=== PATIENT | male | born 1940 | race Caucasian/White ===

== ENCOUNTER 2016-08-15 12:19 | Inpatient (IN) | payer MEDICARE, BC ==
[2016-08-15] MEDS ORDERED: NS 0.9% 1000 ML* 1,000 ML IV ONE ×2 (13:12→14:59)
--- NOTE | 2016-08-15 13:40 | RAD ---
Indication: Chest pain, headache, shortness of breath. Fever. History of COPD. Comparison: March 14, [address] and April 24, 2015 chest radiograph. July 03, 2013 CT chest. Technique: Upright AP 1318 hours Report: Mild prominence of the interstitial markings without significant interval change. No confluent alveolar consolidation, focal pulmonary lesion, pleural effusion, pneumothorax. Cardiomegaly. Prominent central pulmonary vasculature with peripheral attenuation. IMPRESSION: Stigmata of probable chronic obstructive pulmonary disease. Cardiomegaly and stigmata of probable pulmonary arterial hypertension. No compelling evidence for pulmonary edema or pneumonia.
[2016-08-15 13:41] LABS: Hematocrit 57 % (42-52); Hemoglobin 18.2 g/dl (14.0-18.0); Mean Corpuscular HGB Conc 32 g/dl (31-36); Mean Corpuscular Hemoglobin 30 pg (27-31); Mean Corpuscular Volume 93 fL (80-94); Mean Platelet Volume 8 um3 (7.4-10.4); Red Blood Count 6.07 10^6/ul (4.0-5.4); Red Cell Distribution Width 14 % (10.5-15); White Blood Count 9.4 10^3/ul (3.5-10.8)
[2016-08-15 13:44] LABS: ALT 19 U/L (7-52); AST 22 U/L (13-39); Albumin 3.7 g/dL (3.2-5.2); Alkaline Phosphatase 95 U/L (34-104); Anion Gap 7 mmol/L (2-11); BUN/Creatinine Ratio 20.2 (8-20); Blood Urea Nitrogen 17 mg/dL (6-24); C Reactive Protein 6.25 mg/L (< 5.00); CO2 Carbon Dioxide 28 mmol/L (22-32); Calcium 8.9 mg/dL (8.6-10.3); Chloride 103 mmol/L (101-111); Creatine Kinase 37 U/L (10-223); EGFR African American 114.9 (>60); EGFR Non-African American 89.3 (>60); Globulin 2.8 g/dL (2-4); Glucose 96 mg/dL (70-100); Potassium 3.9 mmol/L (3.5-5.0); Sodium 138 mmol/L (133-145); Total Protein 6.5 g/dL (6.4-8.9)
[2016-08-15 13:46] LABS: Troponin I 0.01 ng/mL (<0.04)
[2016-08-15] MEDS ORDERED: Vancomycin(*) 1,500 MG in NS 0.9% 250 ML* 250 ML IVPB ONE (14:06)
--- NOTE | 2016-08-15 14:40 | RAD ---
INDICATION: Altered mental status. COMPARISON: Comparison is made with a prior CT of the brain from April 24, 2015. TECHNIQUE: Contiguous axial sections of the brain were obtained from the skull base to the vertex without contrast. FINDINGS: The ventricles, cisterns and sulci are enlarged consistent with diffuse atrophy. There are small areas of decreased density in the subcortical and periventricular white matter suggestive of mild chronic small vessel ischemic changes. There is relatively dense calcification within the left lentiform nucleus which appears unchanged. There is no evidence for hemorrhage. No significant focal osseous abnormality is seen. The visualized portion of the paranasal sinuses and mastoid air cells appear clear. The results of this exam were called to the referring clinician at 1425 hours. IMPRESSION: 1. NO EVIDENCE FOR GROSS ACUTE INFARCT, MASS EFFECT OR HEMORRHAGE. 2. ATROPHY AND FINDINGS SUGGESTIVE OF MILD CHRONIC SMALL VESSEL ISCHEMIC CHANGES. THERE IS ALSO DENSE CALCIFICATION WITHIN THE LEFT LENTIFORM NUCLEUS WHICH IS UNCHANGED.
[2016-08-15 15:28] LABS: Acetaminophen < 15 mcg/mL; Salicylate < 2.50 mg/dL (<30)
[2016-08-15 15:41] LABS: Urine Bacteria 1+ (Absent); Urine Bilirubin Negative (Negative); Urine Glucose Negative (Negative); Urine Nitrite Negative (Negative)
[2016-08-15 15:55] LABS: Benzodiazepine Urine Screen None Detected (None Detect)
[2016-08-15] MEDS ORDERED: Ondansetron ODT TAB* 4 MG PO PRN (15:55)
[2016-08-15] MEDS ORDERED: Metoprolol Tartrate IV* 1 MG/ML 5 ML VIAL IV SCH (16:00)
[2016-08-15] MEDS ORDERED: Naloxone* 0.4 MG/ML 1 ML VIAL IV PUSH ONE (16:15)
[2016-08-15 16:44] LABS: PCO2 Arterial 33 mmHg (35-45)
--- NOTE | 2016-08-15 18:09 | PN ---
Hospitalist Progress Note Attempted to determine reason for xarelto/metoprolol, seems as though on patient 's outpatient holter study read he was found to have "runs of atrial arrhythmias " that were felt to possibly be paroxysmal atrial flutter. He was prescribed Toprol and Xarelto the same day. Also, patient received IV Narcan in the ED with some improvement in his mental status although still fairly lethargic afterwards, I don't think narcotics are solely responsible for the AMS.
--- NOTE | 2016-08-15 18:30 | HP ---
HISTORY AND PHYSICAL: DATE OF ADMISSION: 08/15/16 PRIMARY CARE PHYSICIAN: Dr. Paz. CHIEF COMPLAINT: Seizure, altered mental status. HISTORY OF PRESENT ILLNESS: Mr. Sethi is a 76-year-old male with past medical history of CAD; left arm AVM; COPD, on occasional home oxygen; chronic pain, on high-dose narcotics; esophageal stricture requiring dilatation; CVA; OA ; GERD; depression, and INDIGO who presents to the hospital after possible seizure and altered mental status. History was obtained from the as the patient is too lethargic to participate at this time. She states that the patient had been doing fairly well lately. He had been having episodes of palpitations which prompted a stress test which he underwent yesterday. She reports it was a chemical stress test. He seemed to tolerate it well although possibly was a little fatigued afterwards. This morning, the patient seemed to be speaking less and was a little less interactive than normal. She states that she was in the other room when she started to hear the patient yell. She went in to see him and said he was tense and his whole body was shaking, what she called a "nervous twitch." He did not lose control of his bladder or bowels. She held on to him until the episode was over and then called EMS. She states since then the patient has been very lethargic and not responsive to questioning. He has no history of seizures; however, he has had a stroke in the past which at that time presented with a facial droop and slurred speech. He has had no recent sick contacts. There has been no change in his narcotics for the past 3 to 4 months. He is on these for chronic back pain and these are prescribed by Dr. Magana. The patient has not had any recent fever, chills, or chest pain. Has been having fair p.o. intake. He has been self-catheterizing as usual. He has had urinary retention since the cholecystectomy done. He has chronic nausea which has not been worse than normal. No emesis. Perhaps some worse shortness of breath lately, but not too significant. In the ED, the patient was noted to be febrile, was started on broad-spectrum antibiotics and antivirals to cover for meningitis. It was found out that he was recently started on Xarelto and metoprolol by Dr. Jacob. He seems to have Holter monitor in place but it is unclear if he is formally diagnosed with AFib. PAST MEDICAL HISTORY: 1. CAD. 2. Left arm AVM. 3. COPD, on occasional home oxygen. 4. INDIGO. 5. GERD. 6. Osteoarthritis. 7. History of CVA with no reported remaining deficits as per the . 8. Chronic pain. 9. Esophageal stricture requiring dilatation. PAST SURGICAL HISTORY: 1. Bilateral hip replacements. 2. Cholecystectomy. 3. Sinus surgery. 4. Left AVM surgery with stent placement. HOME MEDICATIONS: 1. Toprol-XL 25 mg by mouth daily. 2. Xarelto 20 mg by mouth daily. 3. Zofran 8 mg by mouth every 8 hours as needed for nausea. 4. Multivitamin 1 tablet by mouth daily. 5. Wellbutrin 150 mg by mouth daily. 6. Albuterol 2 puffs inhaled every 4 hours as needed for shortness of breath or wheezing. 7. OxyContin 15 mg by mouth every morning, 15 mg by mouth at noon, and 30 mg by mouth at bedtime. 8. MiraLAX 17 g daily. 9. Omeprazole 20 mg by mouth 2 times daily. 10. Lasix 20 to 40 mg by mouth daily. 11. Fluoxetine 20 mg by mouth daily. 12. Duloxetine 30 mg by mouth daily. 13. Bethanechol 10 mg by mouth 3 times daily, 10 mg by mouth at bedtime. 14. Bentyl 20 mg by mouth 3 times daily as needed for abdominal discomfort. 15. Advair 1 puff inhaled 2 times daily. 16. Aspirin 325 mg by mouth daily. 17. Albuterol 2.5 mg inhaled every 4 to 6 hours as needed for shortness of breath or wheezing. ALLERGIES: The patient reports no known drug allergy although has allergy to CONTRAST DYE. FAMILY HISTORY: Significant for mother with breast cancer. Father with diabetes. SOCIAL HISTORY: The patient never smoked. Rarely has alcohol. No illicit drug use. Lives at home with his . REVIEW OF SYSTEMS: A 12-point review of systems negative except for that as noted in the HPI. PHYSICAL EXAMINATION GENERAL: The patient is an elderly man, obese, lying in bed in no apparent distress although is quite lethargic. VITAL SIGNS: On admission, temperature 100.8, heart rate of 85, respiratory rate of 17, O2 saturation 99% on 4 L, blood pressure 164/79. HEENT: Pupils equal, round, reactive to light and accommodation. Anicteric sclerae. Dry mucous membranes. LUNGS: Clear to auscultation in the anterior and lateral vasquez. CARDIOVASCULAR: Irregular rhythm. S1 and S2 present. Slight systolic ejection murmur. ABDOMEN: Soft, nondistended. Some tenderness to palpation in the right lower quadrant. No rebound or guarding. Bowel sounds positive. EXTREMITIES: No cyanosis, clubbing, or edema. NEUROLOGIC: The patient is lethargic, is able to respond to voice, opens eyes, and is able to track, can follow commands. I do not appreciate any focal neurological deficits although exam is somewhat limited. He is responding verbally at this time. SKIN: Warm, dry, and well perfused. LABS AND DIAGNOSTICS: White blood cell count of 9.4, hematocrit of 57, platelets of 190. INR of 1.03. Sodium of 138, potassium 3.9, chloride of 103, carbon dioxide 28, BUN of 17, creatinine of 0.84, glucose of 96. Total bilirubin of 1.2. LFTs within normal limits. CK 37, CK-MB 2.4. Troponin 0.01. CRP of 6.25. Urinalysis: Specific gravity 1.008, 3+ blood, 1+ leukocyte esterase, 3+ wbc's, 3+ rbc's, 1+ urine bacteria. Urine tox positive for opiates, negative for everything else. EKG personally reviewed shows normal sinus rhythm with frequent PACs. Chest x-ray personally reviewed shows possible COPD with no acute disease. CT of the head shows no acute disease, atrophy, and lentiform calcification. ASSESSMENT AND PLAN: Fever, possible seizure with postictal state, subsequent lethargy, and altered mental status in a 76-year-old man with a past medical history of coronary artery disease; left arm arteriovenous malformation; chronic obstructive pulmonary disease, on O2; obstructive sleep apnea, not on CPAP; gastroesophageal reflux disease; osteoarthritis; cerebrovascular accident ; chronic pain, on high-dose narcotics. 1. Fever, lethargy, possible seizure: Appreciate Neurology consultation. Differential is broad at this time. Meningitis or encephalitis is certainly a possibility. The patient is high risk for LP while on Xarelto. So, we will hold off for now and treat empirically with vancomycin, ceftriaxone, and acyclovir. Cultures have been drawn. The patient has a UA that is not totally convincing for infection, more likely traumatic. We will order an EEG. The patient received Keppra in the emergency department. We will continue this for now. We will order an MRI with and without contrast as per Neurology. We will trial the patient on Narcan to see if some of his symptoms are secondary to overnarcosis as he has had issues with this in the past. ABG has been drawn and pending at this time. We will check an ammonia level. The patient does have a significantly elevated hemoglobin and hematocrit which he has had in the past. Polycythemia can often present with neurological symptoms. We will repeat this in the morning. If elevated, we can consider hematology consult. For now, we will keep the patient n.p.o. Try to minimize narcotics. 2. Possible seizure: Treatment as above with Keppra. We will order an EEG. 3. Arrhythmia: Repeat EKG is pending, but the patient seems to be in normal sinus rhythm with frequent premature atrial contractions. It is unclear at this time why the patient was started on metoprolol and Xarelto within the past few weeks. We will try to track down records. The patient's does not seem to think the patient has had blood clot. So, I think it is safe to hold Xarelto for now especially with consideration for possible LP still needed in the morning. 4. Depression: Continue home antidepressants. 5. History of cerebrovascular accident: Continue aspirin 325 mg by mouth daily. 6. Chronic pain: Holding the patient's home OxyContin for now. As above, we will trial the patient with some Narcan to see if this effects his mental status. If not, we will treat the patient with IV Dilaudid p.r.n. in the meantime. If he does respond to Narcan, we will try to moderate the dose. 7. Chronic obstructive pulmonary disease: The patient is currently on oxygen. No wheezing appreciated on exam. We will continue with Dulera as well as p.r.n. albuterol as needed. Wean O2 as tolerated. 8. DVT prophylaxis: Heparin subcu. 9. Code status: The patient is a full code. TIME SPENT: Total time spent on this admission, 55 minutes with over half the time spent [id number] with the patient in counseling and coordinating care. CC: Dr. Paz* [id number]/CPS #: [id number] DARREN
--- NOTE | 2016-08-15 18:30 | CONS ---
NEUROLOGICAL CONSULTATION: DATE OF CONSULT: 08/15/16 PATIENT OF: in the emergency room. HISTORY: This is a 76-year-old man who I am asked to evaluate acutely for a possible stroke. History is from the and not the patient who is not communicating. says that he was fine last night and when he woke somewhere between 8 and 8:30, he was talking to her and made sense, but was quiet and subdued and she was not sure whether he was a little confused, then in retrospect it was hard for her to tell. At 11 or 11:30, she walked into him and he was having bilateral jerking, which she thinks was going on for several minutes and it stopped. Then he remained confused with a left facial droop since. She says the facial droop is new. She says that the event looked like a seizure to her, but that he has had no prior seizures. Of note, here he has had a low-grade fever of 100.8, but he has had no cold, runny nose, GI symptoms, or any other clear source of fever and he has had no known fever at home. The said that he has had a stroke in the past, but has had no symptoms. Since then, he has no residual from the stroke. In the prior notes, I see notes from Dr. Morton in April of 2015 and early notes from Dr. Fleming where he is described as being brought to the hospital for unresponsiveness to verbal commands as well as a possible left facial droop, with a suspicion of overdose of opiates. When Dr. Fleming saw him in May of 2014, he was vague and had chronic headaches and had difficulty focusing mentally, and was not felt to have any specific neurological complaint. He has been seen previously by Dr. Resendiz, that I do not have. PAST MEDICAL HISTORY: He has had past history for esophageal problems requiring repeated dilatation, chronic nausea, chronic headaches, chronic back pain, chronic opioid analgesia, depression, osteoarthritis, asthma, cholecystectomy, chest pain, neurogenic bladder, diverticular disease, obstructive sleep apnea, cholecystectomy, history of chest pain, history of diverticular disease, obstructive sleep apnea. He has also recently been started on Xarelto according to the for unclear reasons, which we are trying to track down. MEDICATIONS AT HOME: Include: 1. Xarelto 20 mg daily, begun a few weeks ago. 2. OxyContin 15 mg in the morning, 15 mg at noon, and 30 mg at night. 3. Zofran 8 mg q. 8h. p.r.n. nausea. 4. Prilosec 20 mg b.i.d. 5. Metoprolol 25 mg daily. 6. Lasix 20 to 40 mg daily. 7. Advair one puff b.i.d. 8. Prozac 20 mg daily. 9. Bentyl 20 mg t.i.d. p.r.n. 10. Cymbalta 30 mg q.a.m. 11. Wellbutrin 150 daily. 12. Urecholine 10 t.i.d. and 10 bedtime. 13. Aspirin 325 daily. 14. 2 puffs INH q. 4h. p.r.n. ALLERGIES: He is allergic to IV CONTRAST DYE. SOCIAL HISTORY: No smoking. No alcohol. REVIEW OF SYSTEMS: Was obtained through the and there is no acute illnesses other than the HPI. PHYSICAL EXAM: On exam, temperature 100.8. He was lethargic, but would open eyes briefly. He did not say any words including when asked his name; however, he did wiggle hands, fingers, and toes on command and would squeeze on both sides. Cranial nerves II through XII are intact other than mild left facial droop which said was new, but has been reported in the past in prior history as well. Rest of the cranial nerves II through XII are intact. Sensation grossly intact to mild noxious stimulation. Bilateral reflexes were 1+, equivocal to downgoing. Chest: Clear: Cardiovascular: Regular rate and rhythm. Abdomen: Soft with positive bowel sounds. DIAGNOSTIC STUDIES/LAB DATA: A CT scan showed old calcifications unchanged from his most recent CT scan. His labs have a white count of 9.4, hematocrit of 57, neutrophils 90.5%, lymphocytes 6.6, sed rate was 21, and normal INR and PTT. Chemistries showed a normal CMP, CPK, total bili was 1.2. He had normal liver function tests. C- reactive protein was 6.25. Other studies are pending. IMPRESSION: Because of a low-grade fever, altered mental status, and probable seizure, we are loading with Javed. This would not be a good long-term medicine given his history of depression, but for now, this will acutely treat if he is having seizures. I have addressed the use of possible opioid overuse with his ER doctor and she is going to address this acutely. Given the fever and altered mental status, we are treating with IV antibiotics and acyclovir to treat for possible meningoencephalitis. This is a possibility and we have begun that acutely. Obviously if he responds to things like Narcan, the picture may become more apparent. If he indeed had seizures, then Wellbutrin can be a trigger and he will need to come off the Wellbutrin. I also discussed with the the fever could be nonspecific and it could have triggered a seizure in this patient who had a possible stroke in the past. It is unclear though exactly what his past stroke history was. It is not well documented in the notes that I have access to, but the says clearly he has had a stroke in the past. We will be getting an MRI scan with and without contrast, which will address the issue of possible meningeal inflammation and temporal lobe irritation, as well as whether this is acute stroke and we would also get an MRA of head and neck at the same time. Thank you for sharing his case. ADDENDUM TO CONSULTATION REPORT: His full vitals at the time of presentation are now available: Temperature was 100.8, pulse 85, respirations 17, blood pressure 164/79. Also, the etiology for him being on Xarelto is that he had a Holter and paroxysmal runs of what looks like atrial flutter were found and he was begun on the Xarelto at that time. I have spoken to Dr. Gibson and the patient is waking up and talking although still somewhat lethargic. He is moving all extremities. Narcan was given and he improved after that but he was improving before and it did not seem to change the trajectory. Dr. Fleming will be picking up this case at this point. [id number]/CPS #: [id number]/CPS #: [id number] DARREN
[2016-08-15] MEDS: NS 0.9% IVPB SCH (18:38)
[2016-08-15] MEDS: ACYCLOVIR IVPB SCH (18:38)
[2016-08-15] MEDS: NS 0.9% 1000 ML* 1,000 ML IV SCH (18:40)
[2016-08-15] MEDS: Metoprolol Tartrate IV* 1 MG/ML 5 ML VIAL IV SCH (18:44)
[2016-08-15] MEDS ORDERED: Gadoteridol* (CONTRAST) 279.3 MG/ML 10 ML IV SCH (19:58)
--- NOTE | 2016-08-15 20:19 | CONS ---
CONSULTATION REPORT: ADDENDUM: His full vitals at the time of presentation are now available: Temperature was 100.8, pul se 85, respirations 17, blood pressure 164/79. Also, the etiology for him being on Xarelto is that he had a Holter and paroxysmal runs of what look s like atrial flutter were found and he was begun on the Xarelto at that time. I have spoken to Dr. Gibson and the patient is waking up and talking although still somewhat lethargic. He is moving a ll extremities. Narcan was given and he improved after that but he was improving before and it did not seem to change the trajectory. Dr. Fleming will be picking up this case at this point. [id number]/[facility] #: [id number]
[2016-08-15] MEDS: HYDROmorphone* 2 MG/ML 1 ML SYR IV SLOW PU PRN (20:37)
[2016-08-15] MEDS: Mometasone/Formoter 200/5 MDI INH SCH (20:44)
--- NOTE | 2016-08-15 22:00 | RAD ---
Indication: Evaluate for stroke or temporal enhancement, history of seizures. Image sequences: Sagittal and axial T1, axial T2, FLAIR, diffusion and susceptibility weighted images of the brain were obtained. Coronal T1, T2 and FLAIR images were obtained. Approximately 20 mL of ProHance was injected and postcontrast sagittal, coronal and axial images were obtained. Ventricular structures are midline. No midline shift is noted. Central and cortical atrophy is noted. FLAIR images demonstrates periventricular signal abnormality consistent with microvascular change. No intracranial mass or hemorrhage is noted. No other high or low signal lesions are identified. There is a appropriate atrophy and the temporal lobes with no evidence of mass or abnormal enhancement. Mastoid air cells and paranasal sinuses are unremarkable. Diffusion-weighted images demonstrates no restriction of diffusion to suggest an acute infarct. Susceptibility weighted images demonstrates no evidence of hemosiderin. 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 CHRONIC ISCHEMIC WHITE MATTER CHANGE IS NOTED. NO ABNORMAL HIPPOCAMPAL ABNORMALITY IS NOTED. NO EVIDENCE OF ACUTE STROKE IS IDENTIFIED.
[2016-08-15] MEDS: Heparin VIAL(*) 5000 UNITS/ML VIAL (FIVE THOUSAND) SUBCUT SCH (22:13)
[2016-08-16] MEDS: Metoprolol Tartrate IV* 1 MG/ML 5 ML VIAL IV SCH ×3 (00:19→11:58)
[2016-08-16] MEDS: Vancomycin(*) 1,000 MG in NS 0.9% 250 ML* 250 ML IVPB SCH ×4 (00:19→23:28)
[2016-08-16] MEDS: Phenazopyridine TAB* 100 MG PO SCH ×3 (01:41→18:09)
[2016-08-16] MEDS: HYDROmorphone* 2 MG/ML 1 ML SYR IV SLOW PU PRN ×3 (01:41→19:54)
[2016-08-16] MEDS: NS 0.9% IVPB SCH ×3 (02:21→18:08)
[2016-08-16] MEDS: ACYCLOVIR IVPB SCH ×3 (02:21→18:08)
[2016-08-16] MEDS ORDERED: Sodium Phosphate ADULT ENEMA* 118 ml bottle PR ONE (02:48)
[2016-08-16 04:51] LABS: Hematocrit 48 % (42-52); Hemoglobin 15.4 g/dl (14.0-18.0); Mean Corpuscular HGB Conc 32 g/dl (31-36); Mean Corpuscular Hemoglobin 30 pg (27-31); Mean Corpuscular Volume 93 fL (80-94); Mean Platelet Volume 8 um3 (7.4-10.4); Red Blood Count 5.14 10^6/ul (4.0-5.4); Red Cell Distribution Width 14 % (10.5-15); White Blood Count 38.3 10^3/ul (3.5-10.8)
[2016-08-16] MEDS: Acetaminophen TAB* 325 MG PO PRN ×2 (04:52→15:40)
[2016-08-16 04:56] LABS: Add Diff/Slide Review? Slide Review Added; Comments Flag Yes
[2016-08-16 05:01] LABS: BUN/Creatinine Ratio 20.6 (8-20); Calcium 7.4 mg/dL (8.6-10.3); EGFR African American 91.8 (>60); EGFR Non-African American 71.4 (>60); Globulin 2.7 g/dL (2-4); Total Bilirubin 0.7 mg/dL (0.2-1.0); Total Protein 5.7 g/dL (6.4-8.9)
[2016-08-16 05:08] LABS: Potassium 4.3 mmol/L (3.5-5.0)
[2016-08-16 05:26] LABS: Immature Granulocytes 16 % (0-9); Neutrophil % 78 % (38-83); RBC Morphology Normal (Normal)
[2016-08-16] MEDS: Heparin VIAL(*) 5000 UNITS/ML VIAL (FIVE THOUSAND) SUBCUT SCH ×3 (05:40→21:42)
[2016-08-16] MEDS: Omeprazole CAP* 20 MG PO SCH ×2 (07:33→21:41)
[2016-08-16] MEDS: Aspirin TAB* 325 MG PO SCH (07:33)
[2016-08-16] MEDS: DULoxetine DR CAP* 30 MG CAP.DR PO SCH (07:33)
[2016-08-16] MEDS: BuPROPion XL* 150 MG TAB.XL PO SCH (07:33)
[2016-08-16] MEDS: FLUoxetine CAP* 20 MG PO SCH (07:33)
[2016-08-16] MEDS: Mometasone/Formoter 200/5 MDI INH SCH ×2 (08:42→20:30)
[2016-08-16] MEDS ORDERED: levETIRAcetam 500 MG IVPREMIX* 500 MG/100 ML BAG IV SCH (09:00)
--- NOTE | 2016-08-16 13:10 | PN ---
Subjective Date of Service: 08/16/16 Interval History: "I'm having withdrawal symptoms. states he goes to the pain clinic in [place] and has been on the med rec dose of oxycodone SR for a long time. " Objective Active Medications: Acetaminophen (Tylenol Tab*) 650 mg PO Q6H PRN PRN Reason: PAIN/FEVER Last Admin: 08/16/16 04:52 Dose: 650 mg Albuterol (Ventolin 2.5 Mg/3 Ml Neb.Damaris*) 2.5 mg INH Q4H PRN PRN Reason: SHORTNESS OF BREATH Aspirin (Aspirin Tab*) 325 mg PO DAILY [facility] Last Admin: 08/16/16 07:33 Dose: 325 mg Bupropion HCl (Wellbutrin Xl *) 150 mg PO DAILY [facility] PRN Reason: Protocol Last Admin: 08/16/16 07:33 Dose: 150 mg Duloxetine HCl (Cymbalta Cap*) 30 mg PO QAM [facility] Last Admin: 08/16/16 07:33 Dose: 30 mg Fluoxetine HCl (Prozac Cap*) 20 mg PO DAILY [facility] Last Admin: 08/16/16 07:33 Dose: 20 mg Gadoteridol (Prohance* (Contrast)) 20 ml IV ONCE [facility] Stop: 08/17/16 19:57 Last Admin: 08/15/16 21:32 Dose: 20 ml Heparin Sodium (Porcine) (Heparin Vial(*)) 5,000 units SUBCUT Q8HR [facility] Last Admin: 08/16/16 05:40 Dose: 5,000 units Hydromorphone HCl (Dilaudid Iv*) 2 mg IV SLOW PU Q4H PRN PRN Reason: PAIN Last Admin: 08/16/16 01:41 Dose: 2 mg Acyclovir Sodium 900 mg/ (Sodium Chloride) 268 mls @ 268 mls/hr IVPB Q8H [facility] Last Admin: 08/16/16 09:58 Dose: 268 mls/hr Ceftriaxone Sodium 2 gm/ (Sodium Chloride) 120 mls @ 240 mls/hr IVPB Q12H [facility] Last Admin: 08/16/16 03:57 Dose: 240 mls/hr Vancomycin HCl 1,000 mg/ (Sodium Chloride) 250 mls @ 166.667 mls/hr IVPB Q8H [facility] Last Admin: 08/16/16 07:32 Dose: 166.667 mls/hr Sodium Chloride (Ns 0.9% 1000 Ml*) 1,000 mls @ 75 mls/hr IV PER RATE [facility] Last Admin: 08/15/16 18:40 Dose: 75 mls/hr Levetiracetam (Keppra Iv Premix*) 500 mg in 100 mls @ 400 mls/hr IV DAILY [facility] Last Admin: 08/16/16 09:32 Dose: 400 mls/hr Levetiracetam 1,000 mg/ Sodium (Chloride) 110 mls @ 440 mls/hr IVPB 2100 [facility] Mometasone Furoate/Formoterol Fumar (Dulera 200/5 Mdi*) 2 puff INH BID [facility] Last Admin: 08/16/16 08:42 Dose: 2 puff Omeprazole (Prilosec Cap*) 20 mg PO BID [facility] Last Admin: 08/16/16 07:33 Dose: 20 mg Ondansetron HCl (Zofran Odt Tab*) 8 mg PO Q8H PRN PRN Reason: NAUSEA/VOMITING Oxycodone HCl (Oxycontin(*)) 20 mg PO TID [facility] Pharmacy Profile Note (Vancomycin Trough Check) 1 note FOLLOW UP ONCE ONE Stop: 08/17/16 07:31 Phenazopyridine HCl (Pyridium Tab*) 100 mg PO Q8H [facility] Stop: 08/18/16 09:01 Last Admin: 08/16/16 07:33 Dose: 100 mg Vital Signs 08/15/16 08/15/16 08/15/16 16:30 17:00 17:30 Temperature Pulse Rate 74 80 82 Respiratory 30 26 26 Rate Blood Pressure 125/56 117/63 123/75 (mmHg) O2 Sat by Pulse 98 97 97 Oximetry 08/15/16 08/15/16 08/15/16 18:00 18:20 20:00 Temperature 99.1 F Pulse Rate 83 90 Respiratory 31 22 20 Rate Blood Pressure 124/43 137/65 (mmHg) O2 Sat by Pulse 93 97 Oximetry 08/15/16 08/15/16 08/15/16 20:04 20:37 21:37 Temperature 99.1 F Pulse Rate 90 Respiratory 18 16 22 Rate Blood Pressure 123/56 (mmHg) O2 Sat by Pulse 96 Oximetry 08/16/16 08/16/16 08/16/16 00:11 01:00 01:41 Temperature 97.7 F Pulse Rate 66 Respiratory 20 22 18 Rate Blood Pressure 110/81 (mmHg) O2 Sat by Pulse 97 Oximetry 08/16/16 08/16/16 08/16/16 02:41 04:02 07:30 Temperature 99.3 F 98.1 F Pulse Rate 71 60 Respiratory 22 20 18 Rate Blood Pressure 120/58 92/47 (mmHg) O2 Sat by Pulse 92 97 Oximetry 08/16/16 08/16/16 08/16/16 07:55 08:42 11:23 Temperature 98.0 F Pulse Rate 63 71 Respiratory 17 18 18 Rate Blood Pressure 88/46 (mmHg) O2 Sat by Pulse 96 95 Oximetry 08/16/16 11:26 Temperature Pulse Rate Respiratory Rate Blood Pressure 110/38 (mmHg) O2 Sat by Pulse Oximetry Oxygen Devices in Use Now: Nasal Cannula Appearance: Alert, sitting on the edge of his bed, head bent over. Somewhat irritable, but otherwise looks comfortable. Eyes: No Scleral Icterus Ears/Nose/Mouth/Throat: Clear Oropharnyx, Mucous Membranes Moist Neck: NL Appearance and Movements; NL JVP, No Thyroid Enlargement, Masses Respiratory: Symmetrical Chest Expansion and Respiratory Effort, Clear to Auscultation, Clear to Percussion Extremities: No Clubbing, Cyanosis, - - Tr edema BL Skin: No Rash or Ulcers, No Nodules or Sclerosis, - Neurological: Alert and Oriented x 3, NL Sensation Result Diagrams: 08/16/16 04:35 08/16/16 04:35 Additional Lab and Data: Lab Results 08/15/16 08/15/16 08/15/16 Range/Units 13:00 13:00 13:00 WBC 9.4 (3.5-10.8) 10^3/ul RBC 6.07 H (4.0-5.4) 10^6/ul Hgb 18.2 H (14.0-18.0) g/dl Hct 57 H (42-52) % MCV 93 (80-94) fL MCH 30 (27-31) pg MCHC 32 (31-36) g/dl RDW 14 (10.5-15) % Plt Count 190 (150-450) 10^3/ul MPV 8 (7.4-10.4) um3 Neut % (Auto) 90.5 H (38-83) % Lymph % (Auto) 6.6 L (25-47) % [place] % (Auto) 1.0 (1-9) % Eos % (Auto) 1.7 (0-6) % Baso % (Auto) 0.2 (0-2) % Absolute Neuts (auto) 8.5 H (1.5-7.7) 10^3/ul Absolute Lymphs (auto) 0.6 L (1.0-4.8) 10^3/ul Absolute Monos (auto) 0.1 (0-0.8) 10^3/ul Absolute Eos (auto) 0.2 (0-0.6) 10^3/ul Absolute Basos (auto) 0 (0-0.2) 10^3/ul Absolute Nucleated RBC 0 10^3/ul Nucleated RBC % 0.1 INR (Anticoag Therapy) 1.03 (0.89-1.11) APTT 28.1 (26.0-36.3) seconds Sodium 138 (133-145) mmol/L Potassium 3.9 (3.5-5.0) mmol/L Chloride 103 (101-111) mmol/L Carbon Dioxide 28 (22-32) mmol/L Anion Gap 7 (2-11) mmol/L BUN 17 (6-24) mg/dL Creatinine 0.84 (0.67-1.17) mg/dL Est GFR ( Amer) 114.9 (>60) Est GFR (Non-Af Amer) 89.3 (>60) BUN/Creatinine Ratio 20.2 H (8-20) Glucose 96 (70-100) mg/dL Lactic Acid (0.5-2.0) mmol/L Calcium 8.9 (8.6-10.3) mg/dL Total Bilirubin 1.20 H (0.2-1.0) mg/dL AST 22 (13-39) U/L ALT 19 (7-52) U/L Alkaline Phosphatase 95 (34-104) U/L Total Creatine Kinase 37 (10-223) U/L CK-MB (CK-2) 2.4 (0.6-6.3) ng/mL Troponin I 0.01 (<0.04) ng/mL C-Reactive Protein 6.25 H (< 5.00) mg/L Total Protein 6.5 (6.4-8.9) g/dL Albumin 3.7 (3.2-5.2) g/dL Globulin 2.8 (2-4) g/dL Albumin/Globulin Ratio 1.3 (1-3) 05/16/17 Range/Units 13:00 WBC (3.5-10.8) 10^3/ul RBC (4.0-5.4) 10^6/ul Hgb (14.0-18.0) g/dl Hct (42-52) % MCV (80-94) fL MCH (27-31) pg MCHC (31-36) g/dl RDW (10.5-15) % Plt Count (150-450) 10^3/ul MPV (7.4-10.4) um3 Neut % (Auto) (38-83) % Lymph % (Auto) (25-47) % [place] % (Auto) (1-9) % Eos % (Auto) (0-6) % Baso % (Auto) (0-2) % Absolute Neuts (auto) (1.5-7.7) 10^3/ul Absolute Lymphs (auto) (1.0-4.8) 10^3/ul Absolute Monos (auto) (0-0.8) 10^3/ul Absolute Eos (auto) (0-0.6) 10^3/ul Absolute Basos (auto) (0-0.2) 10^3/ul Absolute Nucleated RBC 10^3/ul Nucleated RBC % INR (Anticoag Therapy) (0.89-1.11) APTT (26.0-36.3) seconds Sodium (133-145) mmol/L Potassium (3.5-5.0) mmol/L Chloride (101-111) mmol/L Carbon Dioxide (22-32) mmol/L Anion Gap (2-11) mmol/L BUN (6-24) mg/dL Creatinine (0.67-1.17) mg/dL Est GFR ( Amer) (>60) Est GFR (Non-Af Amer) (>60) BUN/Creatinine Ratio (8-20) Glucose (70-100) mg/dL Lactic Acid 1.7 (0.5-2.0) mmol/L Calcium (8.6-10.3) mg/dL Total Bilirubin (0.2-1.0) mg/dL AST (13-39) U/L ALT (7-52) U/L Alkaline Phosphatase (34-104) U/L Total Creatine Kinase (10-223) U/L CK-MB (CK-2) (0.6-6.3) ng/mL Troponin I (<0.04) ng/mL C-Reactive Protein (< 5.00) mg/L Total Protein (6.4-8.9) g/dL Albumin (3.2-5.2) g/dL Globulin (2-4) g/dL Albumin/Globulin Ratio (1-3) Assess/Plan/Problems-Billing Assessment: - Patient Problems (1) Seizure Current Visit: Yes Status: Acute Code(s): R56.9 - UNSPECIFIED CONVULSIONS SNOMED Code(s): 57781837 Comment: Continue levetiracetam for now. Dr. Fleming to see. (2) Fever Current Visit: Yes Status: Acute Code(s): R50.9 - FEVER, UNSPECIFIED SNOMED Code(s): 646312500 Comment: Continue ceftriaxone and acyclovir. ? LP tomorrow. Procalcitonin add-on. (3) Obstructive sleep apnea on CPAP Current Visit: No Status: Chronic Code(s): G47.33 - OBSTRUCTIVE SLEEP APNEA (ADULT) (PEDIATRIC) SNOMED Code(s): 49482730 Comment: Continue albuterol neb PRN. Patient has O2 at home, not CPAP. He had CPAP many years ago. (4) Chronic back pain Current Visit: No Status: Chronic Code(s): M54.9 - DORSALGIA, UNSPECIFIED; G89.29 - OTHER CHRONIC PAIN SNOMED Code(s): 258698854 Comment: Oxycodone SR 15 mg not available in the hospital. I ordered 20 mg tid instead--same total daily doase as at home. (5) Depression, endogenous Current Visit: No Status: Chronic Code(s): F33.2 - MAJOR DEPRESSV DISORDER, RECURRENT SEVERE W/O PSYCH FEATURES SNOMED Code(s): 881709300 Comment: Continue fluoxetine, duloxetine, buproprion.
[2016-08-16] MEDS: oxyCODONE SR TAB(*) 20 MG TAB.SR PO SCH ×2 (13:20→21:41)
[2016-08-16 13:30] LABS: Hematocrit 45 % (42-52); Hemoglobin 14.3 g/dl (14.0-18.0); Mean Corpuscular HGB Conc 32 g/dl (31-36); Mean Corpuscular Hemoglobin 30 pg (27-31); Mean Corpuscular Volume 93 fL (80-94); Mean Platelet Volume 8 um3 (7.4-10.4); Red Blood Count 4.81 10^6/ul (4.0-5.4); Red Cell Distribution Width 15 % (10.5-15); White Blood Count 24.6 10^3/ul (3.5-10.8)
[2016-08-16 13:39] LABS: Comments Flag Yes
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
[2016-08-16] MEDS ORDERED: Sodium Phosphate ADULT ENEMA* 118 ml bottle PR PRN (17:58)
--- NOTE | 2016-08-16 18:00 | PN ---
Progress Note - Progress Note Note: Pt does self-cath, reports kesha blood the last few times. US bladder ordered. He also request 2 Fleet's enama per day, self-administers.
--- NOTE | 2016-08-16 20:55 | RAD ---
Indication: Hematuria. Real-time sonography of the urinary bladder was performed. The catheter is in place. Bladder wall measures 2.1 mm. Swelling debris is noted. Bilateral ureteral jets are noted. The prostate measures 48 mL. IMPRESSION: Catheter in place. Diffuse wall thickening of the urinary bladder measuring up to 2.1 mm.
[2016-08-16] MEDS ORDERED: OXYCODONE 15 MG PO SCH (21:00)
--- NOTE | 2016-08-16 21:53 | CONS ---
NEUROLOGY FOLLOWUP CONSULTATION: DATE OF CONSULT/FOLLOWUP: 08/16/16 HOSPITALIST: Dr. Grove. LOCATION: He is an inpatient, room 436. CHIEF COMPLAINT: Possible seizure. INTERVAL HISTORY: Since yesterday, Mr. Sethi does not feel well in general , but has not had anymore episodes of generalized shaking or weakness. He has a lot of back pain and flank pain and also a bad headache. He has chronic back pain and also a longstanding history of headaches. I reviewed the history with him and his . He says he recalls that he was straight cathing himself yesterday which he has been doing for decades. He developed severe hematuria which he says he has had to a minor extent, but not so severe as yesterday. He started to get very faint and felt like he was going to pass out. He remembers yelling to his . She came in and she says he was still talking and so that he had been calling her. His arms were flowing in front of him "like a seizure. " She feels he never lost responsiveness entirely. An ambulance was summoned and he was brought into the emergency room. She felt that perhaps he had some left facial weakness. She says he also had that when he had his "stroke" several years ago when he came in with a bad headache. She said that resolved and was not a persistent problem. Reviewing the records, Dr. Montoya felt he had a mild left facial droop when he examined him yesterday. Since yesterday, his fever came down. His said it is very unusual for him to have a fever. His white blood cell count climbed precipitously. It was up to 38.3 earlier this morning and then on repeat at 1300 hours, it was 24.6. He developed a bandemia and a left shift. Also, his platelet count has dropped slightly to 130,000. Urinalysis from yesterday was notable for 3+ blood, 3+ white blood cells, 3+ red blood cells, positive leukocyte esterase. Urine culture from yesterday is negative apparently in less than 24 hours. MEDICATIONS: Reviewed. He remains on: 1. Ceftriaxone 2 g q.12 hours. 2. Acyclovir IV q.8 hours 900 mg. 3. Fluoxetine 20 mg p.o. daily. 4. Duloxetine 30 mg p.o. q.a.m. 5. Bupropion XL 150 mg p.o. daily. 6. Dilaudid 2 mg IV q.4 hours p.r.n. back pain. 7. Keppra 500 mg IV q.12 hours. 8. Oxycodone 20 mg p.o. t.i.d. 9. Vancomycin 1000 mg IV q.8 hours. PHYSICAL EXAMINATION: He is overweight and well hydrated. Temperature 98.4, blood pressure 122/52, heart rate in the 60s. Neurologically, pupils are equal, reacting from 3 to 2 mm and eye movements are full. Facial musculature looks symmetric to me. Speech is clear. Funduscopic exam is unremarkable. Motor exam in the upper extremities is normal. I did not walk him. He is alert and oriented to person, place, and time. He is able to give a really pretty good detailed history of yesterday. DIAGNOSTIC STUDIES/LAB DATA: His EEG was done earlier today and reviewed. It reveals mild disorganization of background rhythms, but no epileptiform features. He had an MRI of the brain earlier today which revealed nonspecific white matter changes, but no evidence of prior stroke, hemorrhages, or acute abnormalities. IMPRESSION: Mr. Sethi had convulsive syncope in the setting of gross hematuria. He has what sounds like chronic low-grade hematuria and was recently started on anticoagulation. He may have had some recurrent left facial weakness from otherwise, clinically silent cerebrovascular disease which was brought out by an episode of hypotension. I do not see any evidence of an acute stroke and I think it very unlikely that this was an epileptic event. Recommend discontinuing his Keppra. The plan is to do a lumbar puncture tomorrow off Xarelto which I think is reasonable to consider. Otherwise, it will be hard to determine whether or not and when to stop his acyclovir. His urine culture is negative, but he clearly has significant hematuria and is prone to recurrent urinary tract infections. I will continue to follow along with you. [id number]/[facility] #: [id number] DARREN
[2016-08-16] MEDS: NS 0.9% 1000 ML* 1,000 ML IV SCH (23:32)
[2016-08-17] MEDS: HYDROmorphone* 2 MG/ML 1 ML SYR IV SLOW PU PRN ×5 (00:09→21:21)
--- NOTE | 2016-08-17 01:31 | EEG ---
ELECTROENCEPHALOGRAPHY: DATE OF STUDY: 08/16/16 - ROOM #[id number] REFERRING PHYSICIAN: Dr. Valente Gibson. LOCATION: He is an inpatient. CLINICAL HISTORY: Episode of possible seizure at home. There is a history of a remote stroke. The patient is on numerous medications and Keppra was started in the emergency room. MEDICATIONS: Other medications include: 1. Dilaudid. 2. Prozac. 3. Cymbalta. 4. Wellbutrin. REPORT: This 16-channel EEG is remarkable for background rhythms consisting of a posterior close to alpha rhythm of about 7 cycles and sometimes 8 cycles per second, which is of higher amplitude and slightly slower frequency in the left posterior hemisphere. Moderate voltage mixed theta and beta activity are seen bifrontally and bitemporally. Some vertex slowing is seen periodically including with the patient awake and talking. Movement artifact slowing when the patient is having some coughing is noted episodically. The patient drowses with the increase in amount of central slowing and bitemporal slowing, which is a little more prominent from the left hemisphere. Occasional poorly formed sharp waves are seen mainly centrally. Occasionally there may be a left paracentral sharp wave, but there are no well-formed epileptiform discharges. There are no clinical events. Activation procedures are not attempted. The patient does not clearly fall to stage 2 sleep. CLINICAL IMPRESSION: Abnormal EEG due to mild slowing and disorganization of background rhythm. This is with slower activity from the left hemisphere suggesting some left hemisphere dysfunction. There are, however, no epileptiform discharges. [id number]/[facility] #: [id number] MTDD
[2016-08-17] MEDS: ACYCLOVIR IVPB SCH ×3 (01:47→17:44)
[2016-08-17] MEDS: NS 0.9% IVPB SCH ×3 (01:47→17:44)
[2016-08-17] MEDS: Phenazopyridine TAB* 100 MG PO SCH ×3 (01:57→17:47)
[2016-08-17] MEDS: Metoprolol Succinate XL TAB* 25 MG PO SCH ×2 (02:52→09:27)
[2016-08-17] MEDS: Heparin VIAL(*) 5000 UNITS/ML VIAL (FIVE THOUSAND) SUBCUT SCH ×3 (05:19→22:46)
[2016-08-17] MEDS ORDERED: Vancomycin Trough Check NOTE FOLLOW UP ONE (07:30)
[2016-08-17] MEDS: Mometasone/Formoter 200/5 MDI INH SCH ×2 (07:32→21:05)
[2016-08-17] MEDS: Vancomycin(*) 1,000 MG in NS 0.9% 250 ML* 250 ML IVPB SCH ×2 (07:40→15:55)
[2016-08-17] MEDS ORDERED: OXYCODONE 15 MG PO SCH ×2 (09:00→12:00)
[2016-08-17] MEDS: Omeprazole CAP* 20 MG PO SCH ×2 (09:25→19:52)
[2016-08-17] MEDS: DULoxetine DR CAP* 30 MG CAP.DR PO SCH (09:25)
[2016-08-17] MEDS: oxyCODONE SR TAB(*) 20 MG TAB.SR PO SCH ×3 (09:25→20:01)
[2016-08-17] MEDS: Aspirin TAB* 325 MG PO SCH (09:25)
[2016-08-17] MEDS: FLUoxetine CAP* 20 MG PO SCH (09:28)
[2016-08-17] MEDS: BuPROPion XL* 150 MG TAB.XL PO SCH (10:35)
[2016-08-18] MEDS: Vancomycin(*) 1,000 MG in NS 0.9% 250 ML* 250 ML IVPB SCH ×2 (01:31→07:50)
[2016-08-18] MEDS: Phenazopyridine TAB* 100 MG PO SCH ×2 (01:31→08:39)
[2016-08-18] MEDS: NS 0.9% IVPB SCH ×2 (01:32→09:50)
[2016-08-18] MEDS: ACYCLOVIR IVPB SCH ×2 (01:32→09:50)
[2016-08-18] MEDS: Heparin VIAL(*) 5000 UNITS/ML VIAL (FIVE THOUSAND) SUBCUT SCH ×3 (05:51→20:59)
[2016-08-18 06:29] LABS: Hematocrit 43 % (42-52); Mean Corpuscular HGB Conc 33 g/dl (31-36); Mean Corpuscular Hemoglobin 30 pg (27-31); Mean Corpuscular Volume 93 fL (80-94); Mean Platelet Volume 8 um3 (7.4-10.4); Red Blood Count 4.63 10^6/ul (4.0-5.4); Red Cell Distribution Width 14 % (10.5-15); White Blood Count 9.2 10^3/ul (3.5-10.8)
[2016-08-18 06:42] LABS: BUN/Creatinine Ratio 18.3 (8-20); Calcium 7.4 mg/dL (8.6-10.3); EGFR African American 169.4 (>60); EGFR Non-African American 131.7 (>60); Potassium 3.8 mmol/L (3.5-5.0)
[2016-08-18] MEDS: Mometasone/Formoter 200/5 MDI INH SCH ×2 (07:39→20:49)
[2016-08-18] MEDS: DULoxetine DR CAP* 30 MG CAP.DR PO SCH (08:39)
[2016-08-18] MEDS: Omeprazole CAP* 20 MG PO SCH ×2 (08:39→20:59)
[2016-08-18] MEDS: Aspirin TAB* 325 MG PO SCH (08:39)
[2016-08-18] MEDS: BuPROPion XL* 150 MG TAB.XL PO SCH (08:40)
[2016-08-18] MEDS: oxyCODONE SR TAB(*) 20 MG TAB.SR PO SCH ×3 (08:40→20:59)
[2016-08-18] MEDS: Metoprolol Succinate XL TAB* 25 MG PO SCH (08:40)
[2016-08-18] MEDS: FLUoxetine CAP* 20 MG PO SCH (08:40)
[2016-08-18] MEDS: HYDROmorphone* 2 MG/ML 1 ML SYR IV SLOW PU PRN ×3 (11:00→19:33)
[2016-08-18] MEDS: NS 0.9% 1000 ML* 1,000 ML IV SCH (13:24)
--- NOTE | 2016-08-18 17:48 | PN ---
Subjective Date of Service: 08/17/16 Interval History: . Interviewed and examined patient at bedside; Discussed case with Dr. Grove ; Reviewed previous notes and radiology results; Patient feels better than previous but still not normal. no fevers / chills. described a lot of urinary pain and symptomology. Family History: Unchanged from Admission Social History: Unchanged from Admission Past Medical History: Unchanged from Admission Objective Active Medications: . Acetaminophen (Tylenol Tab*) 650 mg PO Q6H PRN PRN Reason: PAIN/FEVER Last Admin: 08/16/16 15:40 Dose: 650 mg Albuterol (Ventolin 2.5 Mg/3 Ml Neb.Damaris*) 2.5 mg INH Q4H PRN PRN Reason: SHORTNESS OF BREATH Aspirin (Aspirin Tab*) 325 mg PO DAILY [facility] Last Admin: 08/18/16 08:39 Dose: 325 mg Bupropion HCl (Wellbutrin Xl *) 150 mg PO DAILY [facility] PRN Reason: Protocol Last Admin: 08/18/16 08:40 Dose: 150 mg Duloxetine HCl (Cymbalta Cap*) 30 mg PO QAM [facility] Last Admin: 08/18/16 08:39 Dose: 30 mg Fluoxetine HCl (Prozac Cap*) 20 mg PO DAILY [facility] Last Admin: 08/18/16 08:40 Dose: 20 mg Heparin Sodium (Porcine) (Heparin Vial(*)) 5,000 units SUBCUT Q8HR [facility] Last Admin: 08/18/16 13:24 Dose: 5,000 units Hydromorphone HCl (Dilaudid Iv*) 2 mg IV SLOW PU Q4H PRN PRN Reason: PAIN Last Admin: 08/18/16 15:18 Dose: 2 mg Metoprolol Succinate (Toprol Xl Tab*) 25 mg PO DAILY [facility] Last Admin: 08/18/16 08:40 Dose: 25 mg Mometasone Furoate/Formoterol Fumar (Dulera 200/5 Mdi*) 2 puff INH BID [facility] Last Admin: 08/18/16 07:39 Dose: 2 puff Omeprazole (Prilosec Cap*) 20 mg PO BID [facility] Last Admin: 08/18/16 08:39 Dose: 20 mg Ondansetron HCl (Zofran Odt Tab*) 8 mg PO Q8H PRN PRN Reason: NAUSEA/VOMITING Oxycodone HCl (Oxycontin(*)) 20 mg PO TID [facility] Last Admin: 08/18/16 13:25 Dose: 20 mg Sodium Biphosphate/Sodium Phosphate (Fleet Enema*) 1 bottle MS DAILY PRN PRN Reason: CONSTIPATION Last Admin: 08/17/16 06:26 Dose: 1 bottle . Vital Signs 08/17/16 08/17/16 08/17/16 19:31 20:00 20:01 Temperature 97.6 F Pulse Rate 95 Respiratory 20 17 17 Rate Blood Pressure 120/52 (mmHg) O2 Sat by Pulse 98 Oximetry 08/17/16 08/17/16 08/17/16 21:21 22:01 22:21 Temperature Pulse Rate Respiratory 18 16 16 Rate Blood Pressure (mmHg) O2 Sat by Pulse Oximetry Oxygen Devices in Use Now: Nasal Cannula Appearance: elderly, dishevelled Eyes: No Scleral Icterus Ears/Nose/Mouth/Throat: Clear Oropharnyx Neck: Trachea Midline Respiratory: Clear to Auscultation Cardiovascular: NL Sounds; No Murmurs; No JVD Abdominal: NL Sounds; No Tenderness; No Distention Lymphatic: No Cervical Adenopathy Extremities: No Edema Skin: No Rash or Ulcers Neurological: Alert and Oriented x 3 Lines/Tubes/Other Access: Clean, Dry and Intact Peripheral IV Nutrition: Taking PO's Result Diagrams: 08/18/16 06:04 08/18/16 06:04 Assess/Plan/Problems-Billing . Assessment: 76 yo man with hematuria in the setting of ongoing straight-catheterization in the setting of recently starting xarelto and metoprolol for atrial arrythmia. Presents with convulsive syncope - but also concern for potentially infection, given elevated WBC and low grade fever. + recent outpatient antibiotics for UTI's. Current Medications: - Acetaminophen (Tylenol Tab) 650 mg PO Q6H PRN PAIN/FEVER - Albuterol (Ventolin 2.5 Mg/3 Ml Neb.Damaris) 2.5 mg INH Q4H PRN SHORTNESS OF BREATH - Aspirin (Aspirin Tab*) 325 mg PO DAILY - Bupropion HCl (Wellbutrin Xl) 150 mg PO DAILY - Duloxetine HCl (Cymbalta Cap) 30 mg PO QAM - Fluoxetine HCl (Prozac Cap) 20 mg PO DAILY - Heparin Sodium (Porcine) (Heparin Vial) 5,000 units SUBCUT Q8HR - Hydromorphone HCl (Dilaudid Iv) 2 mg IV SLOW PU Q4H PRN PAIN - Metoprolol Succinate (Toprol Xl Tab) 25 mg PO DAILY - Mometasone Furoate/Formoterol Fumar (Dulera 200/5 Mdi) 2 puff INH BID - Omeprazole (Prilosec Cap) 20 mg PO BID - Ondansetron HCl (Zofran Odt Tab) 8 mg PO Q8H PRN NAUSEA/VOMITING - Oxycodone HCl (Oxycontin) 20 mg PO TID - Sodium Biphosphate/Sodium Phosphate (Fleet Enema) 1 bottle MS DAILY PRN CONSTIPATION - Patient Problems (1) Hematuria Current Visit: Yes Status: Acute Priority: High Code(s): R31.9 - HEMATURIA , UNSPECIFIED Comment: - resolving now, off xarelto and with careful catheterizations. - I think the hematuria was secondary to inadvertent trauma in the setting of xarelto, which is known to cause hematuria itself. - also could have been contribution of recent UTI with mucosal irritation. - I think the elevated WBC was moreso secondary to a stress response associated with urinary pain and convulsive syncope. - hold xarelto and consider alternative NOAC (eliquis?) (2) Leukocytosis Current Visit: Yes Status: Chronic Priority: High Code(s): D72.829 - ELEVATED WHITE BLOOD CELL COUNT, UNSPECIFIED Comment: - potentially a stress response given rapid onset and rapid correction - stop antibiotics and antivirals. (3) Fever Current Visit: Yes Status: Acute Code(s): R50.9 - FEVER, UNSPECIFIED SNOMED Code(s): 249148906 Comment: - Stop ceftriaxone and acyclovir. - No LP ; doubtful 2/2 viral encephalitis. (4) Seizure Current Visit: Yes Status: Acute Code(s): R56.9 - UNSPECIFIED CONVULSIONS Comment: Stop keppra. (5) Chronic back pain Current Visit: No Status: Chronic Priority: Medium Code(s): M54.9 - DORSALGIA, UNSPECIFIED; G89.29 - OTHER CHRONIC PAIN Comment: - Oxycodone SR 15 mg not available in the hospital. - Ordered 20 mg tid instead--same total daily dose as at home.
--- NOTE | 2016-08-18 17:57 | PN ---
Subjective Date of Service: 08/18/16 Interval History: . Interviewed and examined patient and spoke with at bedside. Denies new s/sx Eating ok Eager to try and walk again -- RN assistance requested. Family History: Unchanged from Admission Social History: Unchanged from Admission Past Medical History: Unchanged from Admission Objective Active Medications: . Acetaminophen (Tylenol Tab*) 650 mg PO Q6H PRN PRN Reason: PAIN/FEVER Last Admin: 08/16/16 15:40 Dose: 650 mg Albuterol (Ventolin 2.5 Mg/3 Ml Neb.Damaris*) 2.5 mg INH Q4H PRN PRN Reason: SHORTNESS OF BREATH Aspirin (Aspirin Tab*) 325 mg PO DAILY [facility] Last Admin: 08/18/16 08:39 Dose: 325 mg Bupropion HCl (Wellbutrin Xl *) 150 mg PO DAILY [facility] PRN Reason: Protocol Last Admin: 08/18/16 08:40 Dose: 150 mg Duloxetine HCl (Cymbalta Cap*) 30 mg PO QAM [facility] Last Admin: 08/18/16 08:39 Dose: 30 mg Fluoxetine HCl (Prozac Cap*) 20 mg PO DAILY [facility] Last Admin: 08/18/16 08:40 Dose: 20 mg Heparin Sodium (Porcine) (Heparin Vial(*)) 5,000 units SUBCUT Q8HR [facility] Last Admin: 08/18/16 13:24 Dose: 5,000 units Hydromorphone HCl (Dilaudid Iv*) 2 mg IV SLOW PU Q4H PRN PRN Reason: PAIN Last Admin: 08/18/16 15:18 Dose: 2 mg Metoprolol Succinate (Toprol Xl Tab*) 25 mg PO DAILY [facility] Last Admin: 08/18/16 08:40 Dose: 25 mg Mometasone Furoate/Formoterol Fumar (Dulera 200/5 Mdi*) 2 puff INH BID [facility] Last Admin: 08/18/16 07:39 Dose: 2 puff Omeprazole (Prilosec Cap*) 20 mg PO BID [facility] Last Admin: 08/18/16 08:39 Dose: 20 mg Ondansetron HCl (Zofran Odt Tab*) 8 mg PO Q8H PRN PRN Reason: NAUSEA/VOMITING Oxycodone HCl (Oxycontin(*)) 20 mg PO TID [facility] Last Admin: 08/18/16 13:25 Dose: 20 mg Sodium Biphosphate/Sodium Phosphate (Fleet Enema*) 1 bottle MS DAILY PRN PRN Reason: CONSTIPATION Last Admin: 08/17/16 06:26 Dose: 1 bottle . Vital Signs 08/17/16 08/17/16 08/17/16 19:31 20:00 20:01 Temperature 97.6 F Pulse Rate 95 Respiratory 20 17 17 Rate Blood Pressure 120/52 (mmHg) O2 Sat by Pulse 98 Oximetry 08/17/16 08/17/16 08/17/16 21:21 22:01 22:21 Temperature Pulse Rate Respiratory 18 16 16 Rate Blood Pressure (mmHg) O2 Sat by Pulse Oximetry Oxygen Devices in Use Now: Nasal Cannula Appearance: NAd Ears/Nose/Mouth/Throat: Clear Oropharnyx Neck: Trachea Midline Respiratory: Symmetrical Chest Expansion and Respiratory Effort Cardiovascular: NL Sounds; No Murmurs; No JVD Abdominal: NL Sounds; No Tenderness; No Distention Lymphatic: No Cervical Adenopathy Extremities: No Edema Skin: No Rash or Ulcers Neurological: Alert and Oriented x 3 Lines/Tubes/Other Access: Clean, Dry and Intact Peripheral IV Nutrition: Taking PO's Result Diagrams: 08/18/16 06:04 08/18/16 06:04 Additional Lab and Data: . Assess/Plan/Problems-Billing . Assessment: 76 yo man with hematuria in the setting of ongoing straight-catheterization in the setting of recently starting xarelto and metoprolol for atrial arrhythmia. Presents with convulsive syncope - but also concern for potentially infection, given elevated WBC and low grade fever. + recent outpatient antibiotics for UTI's. Current Medications: - Acetaminophen (Tylenol Tab) 650 mg PO Q6H PRN PAIN/FEVER - Albuterol (Ventolin 2.5 Mg/3 Ml Neb.Damaris) 2.5 mg INH Q4H PRN SHORTNESS OF BREATH - Aspirin (Aspirin Tab*) 325 mg PO DAILY - Bupropion HCl (Wellbutrin Xl) 150 mg PO DAILY - Duloxetine HCl (Cymbalta Cap) 30 mg PO QAM - Fluoxetine HCl (Prozac Cap) 20 mg PO DAILY - Heparin Sodium (Porcine) (Heparin Vial) 5,000 units SUBCUT Q8HR - Hydromorphone HCl (Dilaudid Iv) 2 mg IV SLOW PU Q4H PRN PAIN - Metoprolol Succinate (Toprol Xl Tab) 25 mg PO DAILY - Mometasone Furoate/Formoterol Fumar (Dulera 200/5 Mdi) 2 puff INH BID - Omeprazole (Prilosec Cap) 20 mg PO BID - Ondansetron HCl (Zofran Odt Tab) 8 mg PO Q8H PRN NAUSEA/VOMITING - Oxycodone HCl (Oxycontin) 20 mg PO TID - Sodium Biphosphate/Sodium Phosphate (Fleet Enema) 1 bottle MS DAILY PRN CONSTIPATION - Patient Problems (1) Hematuria Current Visit: Yes Status: Acute Priority: High Code(s): R31.9 - HEMATURIA , UNSPECIFIED Comment: - resolving now, off xarelto and with careful catheterizations. - I think the hematuria was secondary to inadvertent trauma in the setting of xarelto, which is known to cause hematuria itself. - also could have been contribution of recent UTI with mucosal irritation. - I think the elevated WBC was moreso secondary to a stress response associated with urinary pain and convulsive syncope. - hold xarelto and consider alternative NOAC (eliquis?) (2) Leukocytosis Current Visit: Yes Status: Chronic Priority: High Code(s): D72.829 - ELEVATED WHITE BLOOD CELL COUNT, UNSPECIFIED Comment: - potentially a stress response given rapid onset and rapid correction - stop antibiotics and antivirals. (3) Fever Current Visit: Yes Status: Acute Code(s): R50.9 - FEVER, UNSPECIFIED SNOMED Code(s): 472724998 Comment: - Stop ceftriaxone and acyclovir. - No LP ; doubtful 2/2 viral encephalitis. (4) Seizure Current Visit: Yes Status: Acute Code(s): R56.9 - UNSPECIFIED CONVULSIONS Comment: Stop keppra. (5) Chronic back pain Current Visit: No Status: Chronic Priority: Medium Code(s): M54.9 - DORSALGIA, UNSPECIFIED; G89.29 - OTHER CHRONIC PAIN Comment: - Oxycodone SR 15 mg not available in the hospital. - Ordered 20 mg tid instead--same total daily dose as at home.
[2016-08-19] MEDS: HYDROmorphone* 2 MG/ML 1 ML SYR IV SLOW PU PRN ×5 (00:29→18:53)
[2016-08-19] MEDS: Heparin VIAL(*) 5000 UNITS/ML VIAL (FIVE THOUSAND) SUBCUT SCH ×3 (05:09→20:21)
[2016-08-19] MEDS: Mometasone/Formoter 200/5 MDI INH SCH ×2 (08:44→21:03)
[2016-08-19] MEDS: Omeprazole CAP* 20 MG PO SCH ×2 (11:23→20:21)
[2016-08-19] MEDS: DULoxetine DR CAP* 30 MG CAP.DR PO SCH (11:23)
[2016-08-19] MEDS: FLUoxetine CAP* 20 MG PO SCH (11:23)
[2016-08-19] MEDS: oxyCODONE SR TAB(*) 20 MG TAB.SR PO SCH ×3 (11:23→20:21)
[2016-08-19] MEDS: Aspirin TAB* 325 MG PO SCH (11:23)
[2016-08-19] MEDS: Metoprolol Succinate XL TAB* 25 MG PO SCH (11:24)
[2016-08-19] MEDS: BuPROPion XL* 150 MG TAB.XL PO SCH (11:25)
[2016-08-19] MEDS: Albuterol 2.5 MG/3 ML NEB.SOL* (0.083%) INH PRN (12:07)
--- NOTE | 2016-08-19 15:08 | PN ---
Subjective Date of Service: 08/19/16 Interval History: . feels weaker today than yesterday and worse pain did walk last evening, but not well - only to BR. patient's is concerned; I agreed to cancel dc and do more work with ambulating, etc. eating OK. will give extra pain meds to allow participation with exercise. will re-evaluate tomorrow. Family History: Unchanged from Admission Social History: Unchanged from Admission Past Medical History: Unchanged from Admission Objective Active Medications: . Acetaminophen (Tylenol Tab*) 650 mg PO Q6H PRN PRN Reason: PAIN/FEVER Last Admin: 08/16/16 15:40 Dose: 650 mg Albuterol (Ventolin 2.5 Mg/3 Ml Neb.Damaris*) 2.5 mg INH Q4H PRN PRN Reason: SHORTNESS OF BREATH Last Admin: 08/19/16 12:07 Dose: 2.5 mg Aspirin (Aspirin Tab*) 325 mg PO DAILY [facility] Last Admin: 08/19/16 11:23 Dose: 325 mg Bupropion HCl (Wellbutrin Xl *) 150 mg PO DAILY [facility] PRN Reason: Protocol Last Admin: 08/19/16 11:25 Dose: 150 mg Duloxetine HCl (Cymbalta Cap*) 30 mg PO QAM [facility] Last Admin: 08/19/16 11:23 Dose: 30 mg Fluoxetine HCl (Prozac Cap*) 20 mg PO DAILY [facility] Last Admin: 08/19/16 11:23 Dose: 20 mg Heparin Sodium (Porcine) (Heparin Vial(*)) 5,000 units SUBCUT Q8HR [facility] Last Admin: 08/19/16 05:09 Dose: 5,000 units Hydromorphone HCl (Dilaudid Iv*) 2 mg IV SLOW PU Q4H PRN PRN Reason: PAIN Last Admin: 08/19/16 12:44 Dose: 2 mg Metoprolol Succinate (Toprol Xl Tab*) 25 mg PO DAILY [facility] Last Admin: 08/19/16 11:24 Dose: 25 mg Mometasone Furoate/Formoterol Fumar (Dulera 200/5 Mdi*) 2 puff INH BID [facility] Last Admin: 08/19/16 08:44 Dose: 2 puff Omeprazole (Prilosec Cap*) 20 mg PO BID [facility] Last Admin: 05/20/17 11:23 Dose: 20 mg Ondansetron HCl (Zofran Odt Tab*) 8 mg PO Q8H PRN PRN Reason: NAUSEA/VOMITING Oxycodone HCl (Oxycontin(*)) 20 mg PO TID [facility] Last Admin: 08/19/16 11:23 Dose: 20 mg Sodium Biphosphate/Sodium Phosphate (Fleet Enema*) 1 bottle [place] DAILY PRN PRN Reason: CONSTIPATION Last Admin: 08/17/16 06:26 Dose: 1 bottle . Vital Signs 08/18/16 08/18/16 08/18/16 15:18 15:25 15:40 Temperature 98.1 F Pulse Rate 108 Respiratory 18 18 20 Rate Blood Pressure 125/66 (mmHg) O2 Sat by Pulse 98 Oximetry 08/18/16 08/18/16 08/18/16 16:18 19:33 19:39 Temperature 97.2 F Pulse Rate 53 Respiratory 18 17 18 Rate Blood Pressure 128/91 (mmHg) O2 Sat by Pulse 99 Oximetry Oxygen Devices in Use Now: Nasal Cannula Appearance: elderly and frail. in discomfort. Ears/Nose/Mouth/Throat: NL Teeth, Lips, Gums Neck: Trachea Midline Respiratory: Symmetrical Chest Expansion and Respiratory Effort Cardiovascular: NL Sounds; No Murmurs; No JVD Abdominal: NL Sounds; No Tenderness; No Distention Lymphatic: No Cervical Adenopathy Extremities: No Edema Skin: No Rash or Ulcers Neurological: Alert and Oriented x 3 Lines/Tubes/Other Access: Clean, Dry and Intact Peripheral IV Nutrition: Taking PO's Result Diagrams: 08/18/16 06:04 08/18/16 06:04 Additional Lab and Data: . Assess/Plan/Problems-Billing . Assessment: 76 yo man with hematuria in the setting of ongoing straight-catheterization in the setting of recently starting xarelto and metoprolol for atrial arrhythmia. Presents with convulsive syncope - but also concern for potentially infection, given elevated WBC and low grade fever. + recent outpatient antibiotics for UTI's. Current Medications: - Acetaminophen (Tylenol Tab) 650 mg PO Q6H PRN PAIN/FEVER - Albuterol (Ventolin 2.5 Mg/3 Ml Neb.Damaris) 2.5 mg INH Q4H PRN SHORTNESS OF BREATH - Aspirin (Aspirin Tab*) 325 mg PO DAILY - Bupropion HCl (Wellbutrin Xl) 150 mg PO DAILY - Duloxetine HCl (Cymbalta Cap) 30 mg PO QAM - Fluoxetine HCl (Prozac Cap) 20 mg PO DAILY - Heparin Sodium (Porcine) (Heparin Vial) 5,000 units SUBCUT Q8HR - Hydromorphone HCl (Dilaudid Iv) 2 mg IV SLOW PU Q4H PRN PAIN - Metoprolol Succinate (Toprol Xl Tab) 25 mg PO DAILY - Mometasone Furoate/Formoterol Fumar (Dulera 200/5 Mdi) 2 puff INH BID - Omeprazole (Prilosec Cap) 20 mg PO BID - Ondansetron HCl (Zofran Odt Tab) 8 mg PO Q8H PRN NAUSEA/VOMITING - Oxycodone HCl (Oxycontin) 20 mg PO TID - Sodium Biphosphate/Sodium Phosphate (Fleet Enema) 1 bottle [place] DAILY PRN CONSTIPATION - Patient Problems (1) Hematuria Current Visit: Yes Status: Acute Priority: High Code(s): R31.9 - HEMATURIA , UNSPECIFIED Comment: - resolving now, off xarelto and with careful catheterizations. - I think the hematuria was secondary to inadvertent trauma in the setting of xarelto, which is known to cause hematuria itself. - also could have been contribution of recent UTI with mucosal irritation. - I think the elevated WBC was moreso secondary to a stress response associated with urinary pain and convulsive syncope. - hold xarelto and consider alternative NOAC (eliquis?) (2) Leukocytosis Current Visit: Yes Status: Chronic Priority: High Code(s): D72.829 - ELEVATED WHITE BLOOD CELL COUNT, UNSPECIFIED Comment: - potentially a stress response given rapid onset and rapid correction - stop antibiotics and antivirals. (3) Fever Current Visit: Yes Status: Acute Code(s): R50.9 - FEVER, UNSPECIFIED SNOMED Code(s): 961462747 Comment: - Stop ceftriaxone and acyclovir. - No LP ; doubtful 2/2 viral encephalitis. (4) Seizure Current Visit: Yes Status: Acute Code(s): R56.9 - UNSPECIFIED CONVULSIONS Comment: Stop keppra. (5) Chronic back pain Current Visit: No Status: Chronic Priority: Medium Code(s): M54.9 - DORSALGIA, UNSPECIFIED; G89.29 - OTHER CHRONIC PAIN Comment: - Oxycodone SR 15 mg not available in the hospital. - Ordered 20 mg tid instead--same total daily dose as at home.
[2016-08-20] MEDS: HYDROmorphone* 2 MG/ML 1 ML SYR IV SLOW PU PRN ×5 (00:09→18:42)
[2016-08-20] MEDS: Heparin VIAL(*) 5000 UNITS/ML VIAL (FIVE THOUSAND) SUBCUT SCH ×3 (05:02→20:05)
[2016-08-20 06:44] LABS: Hematocrit 48 % (42-52); Hemoglobin 15.5 g/dl (14.0-18.0); Mean Corpuscular HGB Conc 33 g/dl (31-36); Mean Corpuscular Hemoglobin 30 pg (27-31); Mean Corpuscular Volume 92 fL (80-94); Mean Platelet Volume 8 um3 (7.4-10.4); Red Blood Count 5.17 10^6/ul (4.0-5.4); Red Cell Distribution Width 15 % (10.5-15); White Blood Count 11.6 10^3/ul (3.5-10.8)
[2016-08-20 06:58] LABS: Albumin 3.2 g/dL (3.2-5.2); BUN/Creatinine Ratio 18.6 (8-20); C Reactive Protein 48.38 mg/L (< 5.00); Calcium 8.3 mg/dL (8.6-10.3); EGFR African American 141.8 (>60); EGFR Non-African American 110.2 (>60); Globulin 2.7 g/dL (2-4); Magnesium 1.6 mg/dL (1.9-2.7); Phosphorus 2.9 mg/dL (2.5-5.0); Potassium 3.8 mmol/L (3.5-5.0); Total Bilirubin 0.7 mg/dL (0.2-1.0); Total Protein 5.9 g/dL (6.4-8.9)
[2016-08-20] MEDS: Omeprazole CAP* 20 MG PO SCH ×2 (08:15→20:06)
[2016-08-20] MEDS: Aspirin TAB* 325 MG PO SCH (08:15)
[2016-08-20] MEDS: FLUoxetine CAP* 20 MG PO SCH (08:15)
[2016-08-20] MEDS: DULoxetine DR CAP* 30 MG CAP.DR PO SCH (08:16)
[2016-08-20] MEDS: BuPROPion XL* 150 MG TAB.XL PO SCH (08:16)
[2016-08-20] MEDS: Metoprolol Succinate XL TAB* 25 MG PO SCH (08:16)
[2016-08-20] MEDS: oxyCODONE SR TAB(*) 20 MG TAB.SR PO SCH ×3 (08:22→20:05)
[2016-08-20] MEDS: Mometasone/Formoter 200/5 MDI INH SCH ×2 (08:35→19:57)
[2016-08-20] MEDS ORDERED: Magnesium Sulf 4 GM/100 ML IV* 4,000 MG/100 ML BAG IVPB ONE (14:00)
[2016-08-20] MEDS: Albuterol 2.5 MG/3 ML NEB.SOL* (0.083%) INH PRN (17:14)
--- NOTE | 2016-08-20 17:52 | PN ---
Subjective Date of Service: 08/20/16 Interval History: . feels better today plan for dc in AM. . Family History: Unchanged from Admission Social History: Unchanged from Admission Past Medical History: Unchanged from Admission Objective Active Medications: . Acetaminophen (Tylenol Tab*) 650 mg PO Q6H PRN PRN Reason: PAIN/FEVER Last Admin: 08/16/16 15:40 Dose: 650 mg Albuterol (Ventolin 2.5 Mg/3 Ml Neb.Damaris*) 2.5 mg INH Q4H PRN PRN Reason: SHORTNESS OF BREATH Last Admin: 08/20/16 17:14 Dose: 2.5 mg Aspirin (Aspirin Tab*) 325 mg PO DAILY [facility] Last Admin: 08/20/16 08:15 Dose: 325 mg Bupropion HCl (Wellbutrin Xl *) 150 mg PO DAILY [facility] PRN Reason: Protocol Last Admin: 08/20/16 08:16 Dose: 150 mg Duloxetine HCl (Cymbalta Cap*) 30 mg PO QAM [facility] Last Admin: 08/20/16 08:16 Dose: 30 mg Fluoxetine HCl (Prozac Cap*) 20 mg PO DAILY [facility] Last Admin: 08/20/16 08:15 Dose: 20 mg Heparin Sodium (Porcine) (Heparin Vial(*)) 5,000 units SUBCUT Q8HR [facility] Last Admin: 08/20/16 14:04 Dose: 5,000 units Hydromorphone HCl (Dilaudid Iv*) 2 mg IV SLOW PU Q4H PRN PRN Reason: PAIN Last Admin: 08/20/16 14:03 Dose: 2 mg Metoprolol Succinate (Toprol Xl Tab*) 25 mg PO DAILY [facility] Last Admin: 08/20/16 08:16 Dose: 25 mg Mometasone Furoate/Formoterol Fumar (Dulera 200/5 Mdi*) 2 puff INH BID [facility] Last Admin: 08/20/16 08:35 Dose: 2 puff Omeprazole (Prilosec Cap*) 20 mg PO BID [facility] Last Admin: 08/20/16 08:15 Dose: 20 mg Ondansetron HCl (Zofran Odt Tab*) 8 mg PO Q8H PRN PRN Reason: NAUSEA/VOMITING Oxycodone HCl (Oxycontin(*)) 20 mg PO TID [facility] Last Admin: 08/20/16 14:03 Dose: 20 mg Sodium Biphosphate/Sodium Phosphate (Fleet Enema*) 1 bottle [place] DAILY PRN PRN Reason: CONSTIPATION Last Admin: 08/17/16 06:26 Dose: 1 bottle . Vital Signs 08/19/16 08/19/16 08/19/16 18:53 19:49 19:53 Temperature 98.4 F Pulse Rate 89 Respiratory 18 20 18 Rate Blood Pressure 139/65 (mmHg) O2 Sat by Pulse 96 Oximetry 08/19/16 08/19/16 08/19/16 20:00 20:21 21:06 Temperature Pulse Rate 92 Respiratory 16 18 18 Rate Blood Pressure (mmHg) O2 Sat by Pulse 96 Oximetry Oxygen Devices in Use Now: Nasal Cannula Appearance: NAD at this time Ears/Nose/Mouth/Throat: NL Teeth, Lips, Gums, Clear Oropharnyx Neck: NL Appearance and Movements; NL JVP Respiratory: Symmetrical Chest Expansion and Respiratory Effort Cardiovascular: NL Sounds; No Murmurs; No JVD Abdominal: NL Sounds; No Tenderness; No Distention Extremities: No Edema Skin: No Rash or Ulcers Lines/Tubes/Other Access: Clean, Dry and Intact Peripheral IV Nutrition: Taking PO's Result Diagrams: 08/20/16 06:27 08/20/16 06:27 Additional Lab and Data: . Assess/Plan/Problems-Billing . Assessment: 76 yo man with hematuria in the setting of ongoing straight-catheterization in the setting of recently starting xarelto and metoprolol for atrial arrhythmia. Presents with convulsive syncope - but also concern for potentially infection, given elevated WBC and low grade fever. + recent outpatient antibiotics for UTI's. Current Medications: - Acetaminophen (Tylenol Tab) 650 mg PO Q6H PRN PAIN/FEVER - Albuterol (Ventolin 2.5 Mg/3 Ml Neb.Damaris) 2.5 mg INH Q4H PRN SHORTNESS OF BREATH - Aspirin (Aspirin Tab*) 325 mg PO DAILY - Bupropion HCl (Wellbutrin Xl) 150 mg PO DAILY - Duloxetine HCl (Cymbalta Cap) 30 mg PO QAM - Fluoxetine HCl (Prozac Cap) 20 mg PO DAILY - Heparin Sodium (Porcine) (Heparin Vial) 5,000 units SUBCUT Q8HR - Hydromorphone HCl (Dilaudid Iv) 2 mg IV SLOW PU Q4H PRN PAIN - Metoprolol Succinate (Toprol Xl Tab) 25 mg PO DAILY - Mometasone Furoate/Formoterol Fumar (Dulera 200/5 Mdi) 2 puff INH BID - Omeprazole (Prilosec Cap) 20 mg PO BID - Ondansetron HCl (Zofran Odt Tab) 8 mg PO Q8H PRN NAUSEA/VOMITING - Oxycodone HCl (Oxycontin) 20 mg PO TID - Sodium Biphosphate/Sodium Phosphate (Fleet Enema) 1 bottle [place] DAILY PRN CONSTIPATION - Patient Problems (1) Hematuria Current Visit: Yes Status: Acute Priority: High Code(s): R31.9 - HEMATURIA , UNSPECIFIED Comment: - resolving now, off xarelto and with careful catheterizations. - I think the hematuria was secondary to inadvertent trauma in the setting of xarelto, which is known to cause hematuria itself. - also could have been contribution of recent UTI with mucosal irritation. - I think the elevated WBC was moreso secondary to a stress response associated with urinary pain and convulsive syncope. - hold xarelto and consider alternative NOAC (eliquis?) (2) Leukocytosis Current Visit: Yes Status: Chronic Priority: High Code(s): D72.829 - ELEVATED WHITE BLOOD CELL COUNT, UNSPECIFIED Comment: - potentially a stress response given rapid onset and rapid correction - stop antibiotics and antivirals. (3) Fever Current Visit: Yes Status: Acute Code(s): R50.9 - FEVER, UNSPECIFIED SNOMED Code(s): 525385031 Comment: - Stop ceftriaxone and acyclovir. - No LP ; doubtful 2/2 viral encephalitis. (4) Seizure Current Visit: Yes Status: Acute Code(s): R56.9 - UNSPECIFIED CONVULSIONS Comment: Stop keppra. (5) Chronic back pain Current Visit: No Status: Chronic Priority: Medium Code(s): M54.9 - DORSALGIA, UNSPECIFIED; G89.29 - OTHER CHRONIC PAIN Comment: - Oxycodone SR 15 mg not available in the hospital. - Ordered 20 mg tid instead--same total daily dose as at home.
[2016-08-21] MEDS: HYDROmorphone* 2 MG/ML 1 ML SYR IV SLOW PU PRN ×2 (00:38→05:25)
[2016-08-21] MEDS: Heparin VIAL(*) 5000 UNITS/ML VIAL (FIVE THOUSAND) SUBCUT SCH (05:25)
--- NOTE | 2016-08-21 06:40 | PN ---
Hospitalist Progress Note . HOSPITALIST DISCHARGE NOTE: See dc instructions and summary by me. Patient stable for dc dc instructions reviewed with the patient at the bedside. DC patient home today.
[2016-08-21 07:36] VITALS: BP 152/69
[2016-08-21] MEDS: BuPROPion XL* 150 MG TAB.XL PO SCH (07:44)
[2016-08-21] MEDS: Aspirin TAB* 325 MG PO SCH (07:44)
[2016-08-21] MEDS: DULoxetine DR CAP* 30 MG CAP.DR PO SCH (07:45)
[2016-08-21] MEDS: Metoprolol Succinate XL TAB* 25 MG PO SCH (07:45)
[2016-08-21] MEDS: oxyCODONE SR TAB(*) 20 MG TAB.SR PO SCH (07:45)
[2016-08-21] MEDS: FLUoxetine CAP* 20 MG PO SCH (07:45)
[2016-08-21] MEDS: Omeprazole CAP* 20 MG PO SCH (07:45)
[2016-08-21] MEDS: Mometasone/Formoter 200/5 MDI INH SCH (07:51)
--- NOTE | 2016-08-21 08:16 | DS ---
DISCHARGE SUMMARY: DATE OF ADMISSION: 08/15/16 DATE OF DISCHARGE: 08/21/16 STATUS DURING HOSPITALIZATION: Inpatient. PRIMARY CARE PHYSICIAN: Dr. Paz. OUTPATIENT AIRCRAFT MACHINIST: Brad Jacob MD. PRINCIPAL DISCHARGE DIAGNOSES: Convulsive syncope and altered mental status in the setting of severe hematuria secondary to ureteral and bladder trauma from self- catheterization in the setting of anticoagulation and concomitant urinary tract infection and sepsis. SECONDARY DIAGNOSES: 1. Coronary artery disease. 2. Atrial arrhythmia - recently started on anticoagulation - anticoagulation currently on hold until reinitiated in outpatient setting. 3. Left arm arteriovenous malformation. 4. Chronic obstructive pulmonary disease - occasionally uses oxygen - currently on room air at discharge. 5. Obstructive sleep apnea. 6. Gastroesophageal reflux disease. 7. Osteoarthritis. 8. History of cerebrovascular accident - no remaining deficits. 9. Chronic pain - on chronic opioids with impairment of functionality with pain at times. 10. Esophageal stricture, status post dilatation. 11. History of bilateral hip replacements. 12. History of cholecystectomy. 13. History of sinus surgery. 14. History of left arteriovenous malformation surgery with stent placement. DISCHARGE MEDICATION REGIMEN: 1. Stop Xarelto until reinitiated following outpatient consideration and selection of alternate agent. 2. Toprol-XL 25 mg by mouth daily. 3. Zofran 8 mg by mouth every 8 hours as needed for nausea. 4. Multivitamin 1 tablet by mouth once daily. 5. Wellbutrin XL 150 mg by mouth daily. 6. Albuterol 2 puffs inhaled every 4 hours as needed for shortness of breath or wheezing. 7. OxyContin - continue former regimen with 15 mg by mouth every morning, 15 mg at noon, and 30 mg at bedtime. 8. MiraLax 17 g by mouth daily. 9. Omeprazole 20 mg by mouth twice daily. 10. Lasix 20 to 40 mg by mouth daily. 11. Fluoxetine 20 mg by mouth daily. 12. Duloxetine 30 mg by mouth daily. 13. Bethanechol 10 mg by mouth 3 times daily and 10 mg by mouth at bedtime. 14. Bentyl 20 mg by mouth 3 times daily as needed for abdominal discomfort. 15. Advair 1 puff inhaled twice daily (250/50 strength). 16. Aspirin 325 mg by mouth daily. 17. Albuterol 2.5 mg every 4 to 6 hours as needed for shortness of breath/ wheezing. HISTORY OF PRESENT ILLNESS AND HOSPITAL COURSE: Please see H and P by Dr. Valente Gibson on 08/15/16. In brief, Mr. Sethi is a 76-year-old gentleman with a medical history detailed above who came to the hospital after a possible seizure in the setting of altered mental status. The patient was recently seen in the outpatient cardiology setting. I believe he underwent a stress test. The patient was somewhat fatigued afterward and was not speaking as he usually does. The patient was noticed by his to be shaking and convulsing. He was very lethargic and not responsive to questioning. The patient has no history of seizures, but a remote stroke that was characterized by a facial droop and slurred speech, but these symptoms had resolved. The patient was brought to the emergency room and found to have a fever of 100.8. He did not initially have leukocytosis, but on day 2 had a greatly elevated white blood cell count over 30. He had gross hematuria. His Xarelto was obviously held. His hematuria resolved slowly. The patient had a bladder ultrasound that showed a catheter in place with diffuse wall thickening of the urinary bladder measuring up to 2.1 mm. Again, the hematuria was slowly resolving. As part of his workup , he had a MRI that showed age appropriate atrophy with no intracranial mass or hemorrhage and chronic ischemic white matter changes noted, but no abnormal other findings or evidence of acute stroke was noticed. This was following a brain CT on admission that showed no evidence for gross acute infarct, mass effect or hemorrhage, but did show atrophy suggesting of mild chronic small vessel ischemic changes with dense calcifications in the left lentiform nucleus which was unchanged and previously noted. The patient was seen in consultation by Neurology for the possibility of stroke or potentially a STUCCO PLASTERER infection. There was originally a suggestion for a lumbar puncture, but given his white count then suddenly declined on day 3, the conclusion was that this was not consistent with a STUCCO PLASTERER infection which would not normally correct in this sudden fashion. The patient was placed on IV antibiotics. His urine culture did not grow any organism. I believe the patient had been on antibiotics in the outpatient setting, so this was somewhat confounding. Mr. Sethi did well, but did struggle with pain throughout the hospitalization. He was receiving intermittent doses of IV Dilaudid which helped him cooperate with physical therapy. He was quite deconditioned at one point, but we worked hard with the nursing staff to ambulate the patient and he seems nearly back to baseline on the morning of 08/21/16. The question of anticoagulation remains open at this point. My conclusion is that the patient had a urinary tract infection and also had ureteral and/or bladder trauma secondary to self-catheterization which together caused hematuria and the patient, secondary to urinary tract infection, had transient hypotension and likely convulsive syncope, perhaps also by a vasovagal mechanism. Mr. Sethi is back to his baseline. The only medication change is the cessation of his anticoagulation which, in theory, could be restarted with caution for more gentle self-catheterization and not in the context of urinary tract infection. The patient is going to follow up with Dr. Jacob to review his cardiology workup from prior two admissions. He has no residual complaints at this time. TIME SPENT: Total time taken to discharge Mr. Sethi was 45 minutes, greater than half that time spent gong over the discharge instructions face-to- face with the patient. CONDITION ON DISCHARGE: Stable. CC: Dr. Paz; Brad Jacob MD* [id number]/[facility] #: [id number] DARREN
== END 2016-08-21 10:55 | disposition home or self-care (01) | DRG 698 ==
LOC: ED 12:19 → MEDTELE 16:00
PROVIDERS: ADMIT Hospitalist; ATTEND Internal Medicine
DX: T83.511A Infection and inflammatory reaction due to indwelling urethral catheter, initial encounter (principal); A41.9 Sepsis, unspecified organism; I95.89 Other hypotension; S37.22XA Contusion of bladder, initial encounter; S37.32XA Contusion of urethra, initial encounter; X58.XXXA Exposure to other specified factors, initial encounter; I25.10 Atherosclerotic heart disease of native coronary artery without angina pectoris; I49.8 Other specified cardiac arrhythmias; J44.9 Chronic obstructive pulmonary disease, unspecified; G47.33 Obstructive sleep apnea (adult) (pediatric); K21.9 Gastro-esophageal reflux disease without esophagitis; M19.90 Unspecified osteoarthritis, unspecified site; R31.0 Gross hematuria; G89.29 Other chronic pain; Y73.8 Miscellaneous gastroenterology and urology devices associated with adverse incidents, not elsewhere classified; Z96.643 Presence of artificial hip joint, bilateral; Z86.73 Personal history of transient ischemic attack (TIA), and cerebral infarction without residual deficits; Y92.009 Unspecified place in unspecified non-institutional (private) residence as the place of occurrence of the external cause; Q27.31 Arteriovenous malformation of vessel of upper limb; Z79.01 Long term (current) use of anticoagulants; Z79.82 Long term (current) use of aspirin; Z99.81 Dependence on supplemental oxygen; Z79.891 Long term (current) use of opiate analgesic; Z79.899 Other long term (current) drug therapy; Z91.041 Radiographic dye allergy status; Z83.3 Family history of diabetes mellitus; Z80.3 Family history of malignant neoplasm of breast
CPT/HCPCS: 36415; 36600; 70450; 70553; 71010; 76857; 80048; 80053; 80202; 80307; 80329; 81003; 81015; 82140; 82550; 82553; 82803; 83605; 83735; 84100; 84145; 84484; 85025; 85610; 85730; 86140; 87040; 87086; 93005; 94640; 94760; 95819; A9270-GY; A9579; G0480; J0133; J0696; J1170; J1644; J2310; J3370

== ENCOUNTER 2016-12-17 10:52 | Emergency (ER) | payer MEDICARE, BC ==
[2016-12-17 11:01] VITALS: BP 115/70
--- NOTE | 2016-12-17 12:26 | RAD ---
Indication: History of bilateral rib fractures October 21, 2016. Persistent pain. Comparison: August 15, 2016 chest radiograph. Technique: Dual energy PA chest and 7 dedicated rib views. Report: Multiple LEFT rib fractures with callus formation indicating healing response including the posterior sixth, seventh, eighth, and ninth ribs as well as multiple additional lateral anterolateral fractures. No definitive acute or subacute RIGHT rib fractures evident. Small LEFT pleural effusion and bibasilar atelectasis. Negative for pneumothorax. Mild cardiomegaly. Unremarkable central pulmonary vasculature and mediastinal contours. IMPRESSION: 1. Multiple healing LEFT rib fractures. No acute LEFT or RIGHT rib fracture evident. 2. Small LEFT pleural effusion and bibasilar atelectasis. Negative for pneumothorax.
--- NOTE | 2016-12-17 13:32 | UC ---
General HPI - HPI Summary HPI Summary: 1) FALL ON 10/21/16 SUSTAINED SEVERAL BROKEN RIBS, NO BRUISING, BUT RIBS STILL HURT. NO COUGH. NO FEVER. NO SOB. 2) LOW BACK PAIN, PATIENT SELF-CATHETERIZES. (HAS FOR 20 YEARS ). CONCERN FOR UTI. NO ABDOMINAL PAIN. - History of Current Complaint Chief Complaint: UCBackPain Stated Complaint: LOWER BACK PAIN Time Seen by Provider: 12/17/16 11:09 Hx Obtained From: Patient, Family/Professional Organizer Onset/Duration: Gradual Onset, Lasting Days, Still Present Onset Severity: Mild Current Severity: Mild Pain Intensity: 3 Associated Signs & Symptoms: Positive: Back Pain. Negative: Abdominal Pain, Anticoagulation Therapy, Cough, Chest Pain, Decreased Responsiveness, Dizziness , Diarrhea, Dysuria, Fever, Trauma - Allergy/Home Medications Allergies/Adverse Reactions: Allergies Allergy/AdvReac Type Severity Reaction Status Date / Time Iodinated Diagnostic Agents Allergy Rash Verified 12/17/16 11:02 contrast dye Allergy Intermediate Rash Uncoded 12/17/16 11:02 Home Medications: Home Medications Escitalopram Oxalate [Lexapro 20 mg] 20 mg PO DAILY 12/17/16 [History Confirmed 12/17/16] PMH/Surg Hx/FS Hx/Imm Hx Previously Healthy: Yes - Surgical History Surgical History: Yes Surgery Procedure, Year, and Place: TOTAL HIP REPLAC[place] [facility] [place] [facility] [place]. 35 YRS AGO VARICOSE VEINS- [place]. 7 YRS SINUS SURGERY[place] [facility] [place] Stents in left arm - Family History Known Family History: Positive: Diabetes - Father - Social History Occupation: Retired Lives: With Family Alcohol Use: None Substance Use Type: None, Prescribed Smoking Status (MU): Never Smoked Tobacco - Immunization History Most Recent Influenza Vaccination: in past Most Recent Pneumonia Vaccination: 2017 Review of Systems Constitutional: Negative Skin: Negative Eyes: Negative ENT: Negative Respiratory: Other - BILATERAL RIB PAIN Cardiovascular: Negative Gastrointestinal: Negative Genitourinary: Dysuria, Frequency, Urgency Motor: Negative Neurovascular: Negative Musculoskeletal: Arthralgia, Myalgia Neurological: Negative Psychological: Negative Is Patient Immunocompromised?: No All Other Systems Reviewed And Are Negative: Yes Physical Exam Triage Information Reviewed: Yes Appearance: Well-Appearing, No Pain Distress, Well-Nourished Vital Signs: Initial Vital Signs Temp 97.1 F 12/17/16 10:54 Pulse 78 12/17/16 10:54 Resp 20 12/17/16 10:54 BP 115/70 12/17/16 10:54 Pulse Ox 96 12/17/16 10:54 Vital Signs Reviewed: Yes Eye Exam: Normal ENT Exam: Normal ENT: Positive: Normal ENT inspection, TMs normal Dental Exam: Normal Neck exam: Normal Neck: Positive: Supple, Nontender, No Lymphadenopathy Respiratory Exam: Normal Respiratory: Positive: Chest non-tender, Lungs clear, Normal breath sounds, No respiratory distress, No accessory muscle use Cardiovascular: Positive: RRR, No Murmur Abdominal Exam: Normal Musculoskeletal Exam: Normal Neurological Exam: Normal Psychological Exam: Normal Skin Exam: Normal Course/Dx - Differential Dx - Multi-Symptom Differential Diagnoses: Urinary Tract Infection Provider Diagnoses: MULTIPLE HEALING BILATERAL RIB FRACTURES; URINARY TRACT INFECTION Discharge - Discharge Plan Condition: Stable Disposition: HOME Prescriptions: Sulfamethox/Trimethoprim DS* [Bactrim DS 800/160 TAB*] 1 tab PO BID #10 tab Patient Education Materials: Urinary Tract Infection in Men (ED), Rib Fracture (ED), Rib Contusion (ED) Referrals: Brandi MCGINNIS,Royal Patel [Primary Care Provider] -
--- NOTE | 2016-12-19 18:26 | ED ---
Progress - Progress Note Progress Note: PLEASE CALL PATIENT. CHANGED MEDICINE TO [facility]CROBID. BACTRIM RESISTANT. Course/Dx - Diagnoses Provider Diagnoses: Dysuria
== END 2016-12-17 12:51 | disposition home or self-care (01) ==
LOC: UCEAST 10:52
DX: S22.42XA Multiple fractures of ribs, left side, initial encounter for closed fracture (principal); W19.XXXA Unspecified fall, initial encounter; Y93.9 Activity, unspecified; Y92.9 Unspecified place or not applicable; J90 Pleural effusion, not elsewhere classified; J98.11 Atelectasis; N39.0 Urinary tract infection, site not specified; M54.5 Low back pain; Z91.041 Radiographic dye allergy status; Z96.643 Presence of artificial hip joint, bilateral; Z90.49 Acquired absence of other specified parts of digestive tract
CPT/HCPCS: 71111; 81003; 87077; 87086; 87186; 99212; G0463

== ENCOUNTER 2017-08-31 09:17 | Inpatient (IN) | payer MEDICARE ==
[2017-08-31] MEDS ORDERED: Ondansetron ODT TAB* 4 MG PO ONE (09:56)
[2017-08-31] MEDS ORDERED: Morphine INJ* 4 MG/ML 1 ML CARPUJECT IV ONE (09:56)
[2017-08-31] MEDS ORDERED: Morphine VIAL* 4 MG/ML VIAL (1 ml vial) IV ONE (10:09)
[2017-08-31] MEDS ORDERED: Aspirin 81 mg CHEW TAB* 81 MG TAB.CHEW PO ONE (10:17)
[2017-08-31 10:21] LABS: ABS Basophils 0 10^3/ul (0-0.2); ABS Eosinophils 0.6 10^3/ul (0-0.6); ABS Lymphocytes 1.9 10^3/ul (1.0-4.8); ABS Monocytes 1.4 10^3/ul (0-0.8); ABS Neutrophils 12.1 10^3/ul (1.5-7.7); ABS Nucleated RBC 0 10^3/ul; Eosinophil % 3.9 % (0-6); Hematocrit 38 % (42-52); Hemoglobin 12.6 g/dl (14.0-18.0); Lymphocyte % 11.8 % (25-47); Mean Corpuscular HGB Conc 33 g/dl (31-36); Mean Corpuscular Hemoglobin 32 pg (27-31); Mean Corpuscular Volume 96 fL (80-94); Mean Platelet Volume 7.8 um3 (7.4-10.4); Nucleated Red Blood Cells % 0; Platelet Count 208 10^3/ul (150-450); Red Blood Count 3.98 10^6/ul (4.0-5.4); Red Cell Distribution Width 13 % (10.5-15)
[2017-08-31 10:39] LABS: EGFR Non-African American 136.6 (>60)
--- NOTE | 2017-08-31 11:25 | RAD ---
Fall, head injury. CT of the brain was performed without IV contrast. Ventricular structures are midline. No midline shift is noted. The extra-axial spaces are unremarkable. Again noted are dense calcifications in the left basal ganglia which are unchanged from August 15, 2016. Periventricular lucency consistent with chronic ischemic White matter change is noted. No intracranial hemorrhage is noted. Mastoid air cells and paranasal sinuses are otherwise unremarkable. IMPRESSION: Left sided basal ganglia calcifications appears stable. Chronic ischemic White matter change.
--- NOTE | 2017-08-31 11:32 | RAD ---
INDICATION: Trauma, neck pain. COMPARISON: Comparison is made with a prior CT of the cervical spine from September 12, 2011. TECHNIQUE: Contiguous axial sections were obtained from the skull base through the T1 vertebra. Images were reconstructed in the sagittal and coronal planes. FINDINGS: The vertebra are in normal alignment. No prevertebral soft tissue swelling or fracture is seen. At the C3-C4 level there is posterior uncinate process spurring and hypertrophic changes within the facet joints. There is mild spinal canal narrowing on the left side. There is mild neural foraminal narrowing on the right side and moderate to severe neural foraminal narrowing on the left side. At the C4-C5 level there is mild posterior uncinate process spurring and hypertrophic changes within the facet joints. There is mild neural foraminal narrowing on the right side and severe neural foraminal narrowing on the left side. No significant spinal canal narrowing is present. At the C5-C6 level there is mild posterior uncinate process spurring and hypertrophic changes within the facet joints. No spinal canal narrowing is present. There is moderate bilateral neural foraminal narrowing. At the C6-C7 level there is mild posterior uncinate process spurring. No significant spinal canal narrowing is present. There is mild bilateral neural foraminal narrowing. IMPRESSION: 1. NO EVIDENCE FOR FRACTURE OR SUBLUXATION. 2. MODERATE CERVICAL SPONDYLOSIS.
--- NOTE | 2017-08-31 11:47 | RAD ---
Indication: Fall, right abdominal hematoma and right rib tenderness. CT of the chest, abdomen and pelvis was performed without oral or IV contrast administration. Coronal and sagittal reconstructed images were obtained. Inferior thyroid lobes are unremarkable. No mediastinal or hilar adenopathy is noted. The heart demonstrates no pericardial effusion. The trachea and major bronchi appear patent. There is some scarring in the right apex anteriorly. This was present on prior exam of July 03, 2013. There is some linear atelectasis in the right lower lobe laterally. There may also be some atelectasis in the left lingula. Deformity of the left ribs is noted presumably from prior healed fracture. No evidence of acute right wrist fracture is noted. No adrenal masses are noted. The kidneys demonstrate no hydronephrosis. Cyst in the lower pole of left kidney measures up to 3.8 cm. No hydronephrosis is noted. No retroperitoneal lymphadenopathy is noted. No dilated small bowel are noted. CT of the pelvis demonstrates no retroperitoneal or pelvic lymphadenopathy. The urinary bladder is unremarkable. Diverticulosis without definite evidence of diverticulitis is noted. No hernias are noted. Bilateral hip replacements are noted. There is a large right flank subcutaneous hematoma which is incompletely imaged and measures at least 21 cm in length x 16 cm AP with an indeterminate width. The vertebral bodies demonstrate no definite evidence of compression fracture although diffuse osteopenia is noted. IMPRESSION: No intra-abdominal solid organ injury is noted. Scarring is noted in the right lung apex which was identified on prior exam. Large right subcutaneous hematoma which is incompletely imaged measuring at least 21 cm in length x 16 cm AP and an indeterminate width. Old rib deformities on the left consistent with healed rib fractures. No evidence of recent rib fractures are noted on the right.
--- NOTE | 2017-08-31 11:48 | RAD ---
Indication: Fall, back pain. CT of the thoracic spine was obtained in the axial plane. Sagittal and coronal reconstructed images were obtained. The vertebral bodies appear normal in height. No evidence of compression fracture is noted. Multiple levels of degenerative disc disease is noted. The spinal canal appears to be intact. Definite rib injury is noted. IMPRESSION: Multilevel degenerative disc disease without evidence of fracture of the thoracic spine.
--- NOTE | 2017-08-31 11:50 | RAD ---
INDICATION: Trauma, back pain. COMPARISON: Comparison is made with a prior x-ray study of the lumbar spine from January 11, 2017. TECHNIQUE: Contiguous axial sections were obtained beginning above the T11 vertebra and continuing through the L5-S1 disc space. Images were reconstructed in the sagittal and coronal planes. FINDINGS: The vertebra appear osteopenic. There is a mild lumbar scoliosis convex toward the right side. There is fusion of the L1 and L2 vertebral bodies and retrolisthesis of L2 relative to L3 of approximately 5 mm which is unchanged. No fracture is seen. At the T12-L1 level there is posterior endplate spurring associated with a mild broad-based disc bulge which causes mild spinal canal narrowing. There are moderate hypertrophic changes within the facet joints. Neural foramen appear patent on both sides. At the L1-L2 level there is fusion of the vertebral bodies. No significant spinal canal narrowing is present. There is mild to moderate bilateral neural foraminal narrowing. At the L2-L3 level there is posterior endplate spurring associated with a mild broad-based disc. There are moderate hypertrophic changes within the facet joints. There is mild to moderate spinal canal narrowing and moderate to severe neural foraminal narrowing on the right side and moderate neural foraminal narrowing on the left side. At the L3-L4 level there is a mild broad-based disc bulge and severe hypertrophic changes within the facet joints. There is moderate spinal canal narrowing and moderate neural frontal narrowing on the right side and mild neural foraminal narrowing on the left side. At the L4-L5 level there is posterior endplate spurring associated with a mild broad-based disc bulge and moderate hypertrophic changes within the facet joints. No significant spinal canal narrowing is present. There is mild to moderate bilateral neural foraminal narrowing. At the L5-S1 level there are moderate hypertrophic changes within the facet joints. No significant spinal canal narrowing is present. Neural foramen appear patent bilaterally. IMPRESSION: 1. THERE IS FUSION OF THE L1 AND L2 VERTEBRAL BODIES AND MILD GRADE 1 RETROLISTHESIS AT THE L2-L3 LEVEL WHICH IS UNCHANGED. NO ACUTE FRACTURE IS SEEN. 2. MODERATE LUMBAR SPONDYLITIC CHANGES.
--- NOTE | 2017-08-31 12:23 | RAD ---
Indication: Dizziness. Fall. COPD. Comparison: August 31, 2017 CT. Technique: Upright AP 1156 hours Report: Rarefaction of interstitial markings at the RIGHT lung. Multiple healed LEFT rib fractures and mild LEFT basilar atelectasis and pleural parenchymal scarring. Negative for pleural effusions. Negative for pneumothorax. Upper normal heart size. Epicardial fat pads. Markedly prominent central pulmonary arteries with peripheral attenuation. IMPRESSION: Stigmata of chronic obstructive pulmonary disease, emphysema, and pulmonary arterial hypertension. No acute cardiopulmonary process evident.
[2017-08-31] MEDS ORDERED: NS 0.9% 1000 ML* 1,000 ML IV ONE ×2 (13:05→15:32)
[2017-08-31] MEDS ORDERED: Piperacillin/Tazobac ADVAN(*) 3.375 GM in NS 0.9% 100 ML* 100 ML IVPB ONE (14:01)
[2017-08-31] MEDS ORDERED: Desmopressin Acetate* 4 MCG/ML 10 ML VIAL IVPB ONE (14:12)
[2017-08-31] MEDS ORDERED: Albuterol 2.5 MG/3 ML NEB.SOL* (0.083%) INH PRN (14:16)
[2017-08-31] MEDS ORDERED: DESMOPRESSIN IVPB ONE ×2 (15:00)
[2017-08-31 15:11] LABS: ABS Basophils 0 10^3/ul (0-0.2); ABS Eosinophils 0.1 10^3/ul (0-0.6); ABS Lymphocytes 1.9 10^3/ul (1.0-4.8); ABS Monocytes 1.5 10^3/ul (0-0.8); ABS Neutrophils 12.4 10^3/ul (1.5-7.7); ABS Nucleated RBC 0 10^3/ul; Eosinophil % 0.8 % (0-6); Hematocrit 31 % (42-52); Hemoglobin 10.2 g/dl (14.0-18.0); Lymphocyte % 11.8 % (25-47); Mean Corpuscular HGB Conc 33 g/dl (31-36); Mean Corpuscular Hemoglobin 32 pg (27-31); Mean Corpuscular Volume 97 fL (80-94); Mean Platelet Volume 8.2 um3 (7.4-10.4); Nucleated Red Blood Cells % 0; Platelet Count 203 10^3/ul (150-450); Red Blood Count 3.18 10^6/ul (4.0-5.4); Red Cell Distribution Width 13 % (10.5-15)
[2017-08-31 15:24] LABS: INR 0.99 (0.77-1.02)
[2017-08-31] MEDS: oxyCODONE SR TAB(*) 15 MG TAB.SR PO SCH (17:54)
[2017-08-31] MEDS: Omeprazole CAP* 20 MG PO SCH (17:54)
[2017-08-31 17:59] LABS: Urine Appearance Cloudy; Urine Blood 2+ (Negative); Urine Color Yellow; Urine Ketones Negative (Negative); Urine Protein 1+(30 mg/dL) (Negative); Urine Specific Gravity 1.019 (1.010-1.030); Urine Urobilinogen Negative (Negative)
[2017-08-31] MEDS: Mometasone/Formoter 200/5 MDI INH SCH (19:52)
[2017-08-31] MEDS: CMC:Escitalopram (NF) 10 MG TAB PO SCH (20:52)
[2017-08-31 20:56] LABS: Hematocrit 25 % (42-52); Hemoglobin 8.4 g/dl (14.0-18.0)
[2017-08-31] MEDS ORDERED: Morphine INJ* 2 MG/ML 1 ML CARPUJECT IV PRN (23:52)
[2017-08-31] MEDS ORDERED: oxyCODONE ORAL.SOLN* 5 MG/5 ML UDC PO ONE (23:53)
[2017-08-31] MEDS ORDERED: oxyCODONE SR TAB(*) 15 MG TAB.SR PO ONE (23:56)
[2017-09-01] MEDS: NS 0.9% 1000 ML* 1,000 ML IV SCH ×2 (00:19→09:12)
[2017-09-01 01:03] LABS: Hematocrit 24 % (42-52); Hemoglobin 8.3 g/dl (14.0-18.0)
--- NOTE | 2017-09-01 01:09 | HP ---
CC: Dr. Paz * HISTORY AND PHYSICAL: DATE OF ADMISSION: 08/31/17 PROVIDER: Areli Macias NP PRIMARY CARE PROVIDER: Dr. Paz. ATTENDING PHYSICIAN WHILE IN THE HOSPITAL: Dr. Azeb Mesa * (dictated by Areli Macias NP) CHIEF COMPLAINT: 1. Fall. 2. Abdominal pain. 4. Dizziness. HISTORY OF PRESENT ILLNESS: Mr. Sethi is a 77-year-old male, who carries a past medical history significant for possible CVA 4 years ago, dizziness and depression, who presented to the emergency room this morning after he had an episode of dizziness and falling. The patient states that he turned his head quickly to look and became dizzy causing him to fall. He fell on a metal toilet paper stand which bent when he landed on it. The patient denies any loss of consciousness, does remember being dizzy and then falling and looking a up to the room spinning. Denies any neck pain. Denies any recent nausea, vomiting, or diarrhea. Denies any shortness of breath or chest pain. The patient does report that he uses a walker all the time due to history bilateral hip replacements and back pain for stability. The patient reports that when he got up this morning he felt fine, in his normal state of health. While in the emergency room, the patient had routine lab work and x-rays. He had a CT of the chest, abdomen and pelvis, which showed a large hematoma to the right abdomen. Due to the hematoma to the right abdomen and the dizziness, we were asked to evaluate him for admission to the hospital. Upon evaluation in the emergency room, the patient was found to be hypotensive and pale. Repeat lab work was obtained due to concern of internal bleeding in the abdomen. The patient had a large bore IV started in his right arm and he was given a bolus of fluids. The ICU gum rolling machine operator was contacted and the patient will be admitted to ICU for continuous monitoring and evaluation. and monitoring. PAST MEDICAL HISTORY: Significant for: 1. CAD. 2. Left arm AVM. 3. COPD. 4. Obstructive sleep apnea. 5. GERD. 6. Osteoarthritis. 7. History of CVA with no remaining deficits. 8. Chronic pain. 9. Depression. 10. Dizziness. PAST SURGICAL HISTORY: 1. Bilateral hip replacements. 2. Cholecystectomy. 3. Tonsillectomy. 4. Left AVM surgery with stent placement. HOME MEDICATIONS: 1. Lexapro 20 mg p.o. b.i.d. 2. Oxycodone SR 30 mg q.12 hours. 3. MiraLAX 17 g p.o. daily p.r.n. 4. Albuterol nebulizer 0.083% 2.5 mg q.4 to 6 hours as needed for shortness of breath. 5. Zofran 8 mg p.o. q.8 hours as needed for nausea. 6. Lasix 20 to 40 mg p.o. daily as needed for swelling. 7. Albuterol HFA inhaler 2 puffs q.4 hours as needed for shortness of breath. 8. Advair 500/50 one puff b.i.d. 9. Duloxetine 30 mg p.o. q.a.m. 10. Omeprazole 20 mg p.o. b.i.d. 11. Metoprolol succinate 50 mg p.o. daily. 12. Avodart 0.5 mg p.o. daily. 13. Multivitamin 1 tab p.o. daily. 14. Aspirin 325 mg p.o. daily. ALLERGIES: He is allergic to IODINE CONTRAST ORAL and IV. FAMILY HISTORY: Father with a history of coronary artery disease. Mother with a history of diabetes. SOCIAL HISTORY: Denies tobacco use. Denies any alcohol use. Denies any illicit drug us. He lives with his . Surrogate decision maker in the event he is unable to make his own decisions is his , Rekha Sethi. He is a full code. REVIEW OF SYSTEMS: He denies any fever. Denies any recent weight loss. Denies chest pain or swelling. Denies cough, shortness of breath, or hemoptysis. Denies any nausea, vomiting. Denies diarrhea. Does report right- sided abdominal pain and left rib pain. Denies any gross hematuria. He does self cath daily x20 years. Neurologic: He did report some dizziness this morning. No dizziness at this time. Denies any visual changes. Denies any difficulty swallowing. Denies any rashes or lesions. He does report depression. Denies any anxiety. A review of 14 systems was completed and all others are negative. PHYSICAL EXAMINATION GENERAL: At this time, Mr. Sethi is a 77-year-old male. He appears pale, weak lying on the stretcher. He does appear to be in mild distress. VITAL SIGNS: As follows: Blood pressure is 80/65, heart rate is 91, respirations 20, O2 saturation was 100% on 4 L nasal cannula, and temperature was 96.9. HEENT: Head is atraumatic, normocephalic. Oral mucosa appears to be dry. NECK: Supple. LUNGS: Clear to auscultation bilaterally. No wheezes, rales, or rhonchi. CARDIAC: S1, S2. Regular rate and rhythm. There are no murmurs, rubs, or gallops. ABDOMEN: Obese with tenderness noted to the right abdomen. He does have a large firm ecchymotic area to the right abdomen along with an abrasion across the lower abdomen. Bowel sounds are active x4. EXTREMITIES: Pedal pulses are +2 bilaterally. He is able to move all 4 extremities. NEUROLOGIC: He is awake. He is alert and oriented x3. His speech is clear. He does not appear to have any gross focal deficits. SKIN: There is an abrasion across his lower abdomen with an ecchymotic area to the right flank and lower abdomen. He also has an ecchymotic area to his right rowe. DIAGNOSTIC STUDIES AND LABORATORY DATA: WBCs were 16.0, RBCs 3.98, hemoglobin was 12.6, hematocrit was 38, platelet count was 208. INR was 0.99, aPTT was 26.4. Sodium 141, potassium 4.1, chloride was 104, carbon dioxide was 32, BUN was 19, creatinine 0.58. Troponins were 0.01, 0.02 and 0.01. He had a chest x-ray. Radiologist's impression: Stigmata of chronic obstructive pulmonary disease, emphysema and pulmonary hypertension. No acute cardiopulmonary process evident. He had a CT of the brain. Radiologist's impression: Left-sided basal ganglia calcification appears to be stable, chronic ischemic white matter changes. He had a C-spine CT. Radiologist's impression: 1. No evidence for fracture or subluxation. 2. Moderate cervical spondylosis. He had a CT of the abdomen and pelvis. Radiologist's impression: No intraabdominal solid organ injury is noted. Scarring is noted in the right lung apex, which was identified on prior exams. Large right subcutaneous hematoma, which was incompletely imaged, measuring at least 21 cm in length x 16 cm AP and an indeterminate width. Old rib deformities on the left consistent with healed rib fractures. No evidence of recent rib fractures are noted on the right. He had a CT of the lumbar spine. Radiologist's impression: 1. There is a fusion of L1 and L2 vertebral bodies and mild grade 1 retrolisthesis at the L2-L3 level, which is unchanged. No acute fracture was seen. 2. Moderate lumbar spondylitic changes. He had a CT of the thoracic spine. Radiologist's impression: Multilevel degenerative disk disease without evidence of fracture of the thoracic spine. ASSESSMENT AND PLAN: Mr. Sethi is a 77-year-old male with a past medical history of coronary artery disease, chronic obstructive pulmonary disease, obstructive sleep apnea, gastroesophageal reflux disease, osteoarthritis, history of a cerebrovascular accident, who presented to the emergency room after an episode of being dizzy and falling where he sustained an injury to his abdomen causing him to have a large right abdominal hematoma. He will be admitted to ICU for: 1. Fall. I suspect his fall was related to his chronic dizziness. He does take meclizine at home as needed for dizziness. He does use a walker at home for ambulation and stability due to status post bilateral hip replacements. 2. Large abdominal hematoma. At this time, the patient is hypotensive. We have requested a large bore IV be started. IV normal saline bolus will be given. We will get a stat CBC. We will repeat his H and H q.6 hours to monitor his blood counts. He was also typed and screened. We will transfuse if his H and H continues to drop. In the event the patient becomes more symptomatic, we may need to consider repeating a CT of the abdomen and pelvis for further evaluation of organ trauma. 3. History of cerebrovascular accident. At this time, we are going to hold his aspirin. 4. Depression. We will continue him on his Lexapro and Cymbalta as previously ordered. 5. Chronic back pain. We will continue his OxyContin 30 mg p.o. b.i.d. 6. Chronic obstructive pulmonary disease. We will continue him on his nebulizers, Advair Diskus, and albuterol nebulizers as needed for shortness of breath. 7. DVT prophylaxis: We will place SCDs. If he can tolerate it on his right lower leg, we will continue SCDs on the right, otherwise we will just do SCDs on the left leg. 8. Fluids, electrolytes, and nutrition: We will give him clear liquids for now and advance his diet as tolerated. 9. Code status: He is a full code. TIME SPENT: Time spent on this admission was greater than 60 minutes, greater than half of that time was spent [id number] with the patient obtaining my history and physical, the other half of the time was spent going over my plan of care and implementing my plan of care. I have discussed this plan with my attending, Dr. Mesa, and she is in agreement with my plan. ARELI MACIAS, TEST AND TURN UP TECHNICIAN [id number]/CPS #: [id number] DARREN
[2017-09-01 05:16] LABS: Hematocrit 22 % (42-52); Hemoglobin 7.4 g/dl (14.0-18.0)
[2017-09-01 09:20] LABS: Hematocrit 26 % (42-52); Hemoglobin 8.6 g/dl (14.0-18.0)
[2017-09-01] MEDS: CMC:Escitalopram (NF) 10 MG TAB PO SCH ×2 (09:48→20:00)
[2017-09-01] MEDS: Multivitamins/Minerals TAB PO SCH (09:48)
[2017-09-01] MEDS: Metoprolol Succinate XL TAB* 25 MG PO SCH (09:49)
[2017-09-01] MEDS: oxyCODONE SR TAB(*) 15 MG TAB.SR PO SCH ×2 (10:08→20:00)
[2017-09-01] MEDS: DULoxetine DR CAP* 30 MG CAP.DR PO SCH (10:09)
[2017-09-01] MEDS: Omeprazole CAP* 20 MG PO SCH ×2 (10:09→15:44)
[2017-09-01] MEDS: cefTRIAXone(*) 1 GM in NS 0.9% 50 ML* 50 ML IVPB SCH (10:36)
--- NOTE | 2017-09-01 11:28 | PN ---
Progress Note - Progress Note Date of Service: 08/31/17 Note: CRITICAL CARE MEDICINE (late entry) Date: 08/31/17 Time: 1500 Patient seen and discussed with FLIGHT OPERATIONS INSPECTOR after pt being admitted for mechanical fall and subq hematoma that seems to be enlarging with bp drop and pale appearance and concern for potential central access needs. Evaluated in ED. Pts present. Pt reports the fall and discomfort at hematoma site, feeling cold and weak with pale appearance. Hr 80s but on bb. On asa as well. CT reviewed. D/w Hospitalists and ED providers and advised for 2nd large bore peripheral rather then central access at that time (which was being placed) and IVF advised , as prbcs can be reserved. check coags to be sure. advised to risk/benefits/ utility of ddavp iv given his dynamics and also placement of abd binder to help tamponade. Pt will be admitted to icu with hospitalist and ICU will eval as needed, but advised this should be self revolving but icu can assist as needed. Call with concerns. No ccm charge. Gay Austin,
[2017-09-01] MEDS: Mometasone/Formoter 200/5 MDI INH SCH ×2 (13:00→19:54)
[2017-09-01 13:52] LABS: Hematocrit 25 % (42-52); Hemoglobin 8.3 g/dl (14.0-18.0)
[2017-09-01] MEDS: oxyCODONE TAB* 5 MG TAB PO PRN ×2 (15:44→23:15)
[2017-09-01] MEDS ORDERED: NS 0.9% 1000 ML* 1,000 ML IV SCH (16:22)
--- NOTE | 2017-09-01 16:36 | PN ---
Subjective Date of Service: 09/01/17 Interval History: Patient drowsy this AM but able to be aroused with significant stimulation. Complains of pain in abdomen. Stable from yesterday. No other significant pain. No CP, SOB, N/V, dizziness, F/C, diarrhea, or other pain. Patient states that he straight catheterizes at home and gets frequent UTIs. Able to transfer to chair with moderate assistance. Feeling better later in the day except for uncontrolled abdominal pain. Family History: Unchanged from Admission Social History: Unchanged from Admission Past Medical History: Unchanged from Admission Objective Active Medications: Albuterol (Ventolin 2.5 Mg/3 Ml Neb.Damaris*) 2.5 mg INH Q4H PRN PRN Reason: SHORTNESS OF BREATH Albuterol (Ventolin Hfa Inhaler*) 2 puff INH Q4H PRN PRN Reason: SHORTNESS OF BREATH Duloxetine HCl (Cymbalta Cap*) 30 mg PO QAM [facility] Last Admin: 09/01/17 10:09 Dose: 30 mg Escitalopram Oxalate (Lexapro (Nf)) 20 mg PO BID [facility] Last Admin: 09/01/17 09:48 Dose: 20 mg Ceftriaxone Sodium 1 gm/ (Sodium Chloride) 50 mls @ 200 mls/hr IVPB Q24H [facility] Last Admin: 09/01/17 10:36 Dose: 200 mls/hr Sodium Chloride (Ns 0.9% 1000 Ml*) 1,000 mls @ 75 mls/hr IV PER RATE [facility] Metoprolol Succinate (Toprol Xl Tab*) 50 mg PO DAILY [facility] Last Admin: 09/01/17 09:49 Dose: 50 mg Mometasone Furoate/Formoterol Fumar (Dulera 200/5 Mdi*) 2 puff INH BID [facility] Last Admin: 09/01/17 13:00 Dose: Not Given Multivitamins/Minerals (Theragran/Minerals Tab*) 1 tab PO DAILY [facility] Last Admin: 09/01/17 09:48 Dose: 1 tab Omeprazole (Prilosec Cap*) 20 mg PO BID@0730,1630 [facility] Last Admin: 09/01/17 15:44 Dose: 20 mg Oxycodone HCl (Oxycontin(*)) 30 mg PO BID@0730,1930 [facility] Last Admin: 09/01/17 10:08 Dose: 30 mg Oxycodone HCl (Roxycodone Tab*) 10 mg PO Q6H PRN PRN Reason: PAIN Last Admin: 09/01/17 15:44 Dose: 10 mg Polyethylene Glycol/Electrolytes (Miralax*) 17 gm PO DAILY PRN PRN Reason: CONSTIPATION Vital Signs - 8 hr 09/01/17 09/01/17 09/01/17 08:30 08:45 09:00 Temperature Pulse Rate 82 84 88 Respiratory 26 26 23 Rate Blood Pressure 141/61 133/59 111/61 (mmHg) O2 Sat by Pulse 100 100 100 Oximetry 09/01/17 09/01/17 09/01/17 09:03 09:16 09:30 Temperature Pulse Rate 78 83 82 Respiratory 24 28 23 Rate Blood Pressure 125/64 122/56 111/61 (mmHg) O2 Sat by Pulse 100 100 100 Oximetry 09/01/17 09/01/17 09/01/17 09:45 10:00 10:01 Temperature Pulse Rate 78 94 89 Respiratory 25 22 26 Rate Blood Pressure 119/81 105/61 (mmHg) O2 Sat by Pulse 100 100 100 Oximetry 09/01/17 09/01/17 09/01/17 10:08 10:15 10:30 Temperature Pulse Rate 78 75 Respiratory 26 22 30 Rate Blood Pressure 118/61 108/62 (mmHg) O2 Sat by Pulse 100 100 Oximetry 09/01/17 09/01/17 09/01/17 11:00 11:15 11:30 Temperature Pulse Rate 80 79 74 Respiratory 24 23 25 Rate Blood Pressure 118/63 105/55 111/55 (mmHg) O2 Sat by Pulse 99 100 98 Oximetry 09/01/17 09/01/17 09/01/17 11:45 12:00 12:15 Temperature 98.5 F Pulse Rate 82 77 75 Respiratory 19 25 18 Rate Blood Pressure 109/58 106/59 108/52 (mmHg) O2 Sat by Pulse 98 99 99 Oximetry 09/01/17 09/01/17 09/01/17 12:30 12:46 13:00 Temperature Pulse Rate 77 79 72 Respiratory 24 25 23 Rate Blood Pressure 122/61 126/57 (mmHg) O2 Sat by Pulse 99 99 100 Oximetry 09/01/17 09/01/17 09/01/17 13:01 13:15 13:27 Temperature Pulse Rate 73 77 74 Respiratory 20 24 24 Rate Blood Pressure 108/60 108/56 125/62 (mmHg) O2 Sat by Pulse 98 100 99 Oximetry 09/01/17 13:31 Temperature Pulse Rate 82 Respiratory 20 Rate Blood Pressure 121/60 (mmHg) O2 Sat by Pulse 99 Oximetry Oxygen Devices in Use Now: Nasal Cannula Appearance: Patient is a 77yo male who appears older than stated age and is sitting in the bed in NAD. Eyes: No Scleral Icterus, PERRLA Ears/Nose/Mouth/Throat: NL Teeth, Lips, Gums, Clear Oropharnyx, Mucous Membranes Moist Neck: NL Appearance and Movements; NL JVP, Trachea Midline Respiratory: Symmetrical Chest Expansion and Respiratory Effort, Clear to Auscultation Cardiovascular: NL Sounds; No Murmurs; No JVD, RRR, - - 1+ edema in B/L LE. Abdominal: No Hepatosplenomegaly, - - Abdominal binder in place. Significant dependent ecchymosis noted on right side of abdomen. Lymphatic: No Cervical Adenopathy Extremities: No Edema, No Clubbing, Cyanosis Skin: No Nodules or Sclerosis, - - Ecchymosis on right side of abdomen and right rowe. Result Diagrams: 09/01/17 13:29 08/31/17 10:09 Microbiology and Other Data: Microbiology 08/31/17 15:00 Nasal Screen MRSA (PCR)(CLAUDIA) - Final Nasal Mrsa Not Detected Assess/Plan/Problems-Billing Assessment: Patient is a 72yo male with a PMH for CAD, COPD, CVA, Dizziness likely due to BPPV, who presents after a fall due to dizziness without LOC with abdominal trauma and severe blood loss anemia who is stabilizing. - Patient Problems (1) Acute blood loss anemia Current Visit: Yes Status: Acute Code(s): D62 - ACUTE POSTHEMORRHAGIC ANEMIA SNOMED Code(s): 712926080 Comment: Due to abdominal hematoma from mechanical fall precipitated by dizziness. Tranfused 1u PRBC. Decline in H/H slowing. Abdominal binder discontinued. DDAVP given. BP stable, previous hypotension. Fluids decreased to 75ml/hr. Continued H /H Q4H. (2) CAD (coronary artery disease) Current Visit: Yes Status: Acute Code(s): I25.10 - ATHSCL HEART DISEASE OF [place] CORONARY ARTERY W/O ANG PCTRS SNOMED Code(s): 38766117 Comment: No CP, Hold ASA, continue BB. Hemoglobin target of 8. (3) COPD (chronic obstructive pulmonary disease) Current Visit: Yes Status: Acute Code(s): J44.9 - CHRONIC OBSTRUCTIVE PULMONARY DISEASE, UNSPECIFIED SNOMED Code(s): 44689049 Comment: On baseline 4L O2. Continue inhalers and PRN albuterol. No exacerbation. (4) Chronic pain Current Visit: Yes Status: Acute Code(s): G89.29 - OTHER CHRONIC PAIN SNOMED Code(s): 06316575 Comment: Continue scheduled Oxycodone and PRN added. Pain moderately well controlled. (5) Dizziness Current Visit: Yes Status: Acute Code(s): R42 - DIZZINESS AND GIDDINESS SNOMED Code(s): 528904221 Comment: BPPV by description. Never had a formal evaluation. No Nystagmus. No signs of CVA. Would possibly benefit from vestibular PT. (6) DVT prophylaxis Current Visit: Yes Status: Acute Code(s): NWQ0468 - SNOMED Code(s): 309254875 Comment: SCDs in setting of bleeding. (7) Obstructive sleep apnea on CPAP Current Visit: No Status: Chronic Code(s): G47.33 - OBSTRUCTIVE SLEEP APNEA (ADULT) (PEDIATRIC) SNOMED Code(s): 05570174 Comment: Does not tolerated CPAP, chronic O2. (8) Full code status Current Visit: Yes Status: Acute Code(s): Z78.9 - OTHER SPECIFIED HEALTH STATUS SNOMED Code(s): 639246767 Status and Disposition: Inpatient.
[2017-09-01 18:31] LABS: Hematocrit 25 % (42-52); Hemoglobin 8.5 g/dl (14.0-18.0)
[2017-09-01] MEDS ORDERED: GLYCERIN PR PRN (21:40)
[2017-09-01] MEDS: Polyethylene Glycol 3350* 17 GM PACKET PO PRN (23:15)
[2017-09-01 23:36] LABS: Hematocrit 25 % (42-52); Hemoglobin 8.4 g/dl (14.0-18.0)
[2017-09-02 05:18] LABS: ABS Basophils 0 10^3/ul (0-0.2); ABS Eosinophils 0.7 10^3/ul (0-0.6); ABS Lymphocytes 2.3 10^3/ul (1.0-4.8); ABS Monocytes 1.3 10^3/ul (0-0.8); ABS Neutrophils 7.5 10^3/ul (1.5-7.7); ABS Nucleated RBC 0 10^3/ul; Eosinophil % 6.3 % (0-6); Hematocrit 22 % (42-52); Hemoglobin 7.5 g/dl (14.0-18.0); Lymphocyte % 19.4 % (25-47); Mean Corpuscular HGB Conc 34 g/dl (31-36); Mean Corpuscular Hemoglobin 32 pg (27-31); Mean Corpuscular Volume 95 fL (80-94); Mean Platelet Volume 7.8 um3 (7.4-10.4); Nucleated Red Blood Cells % 0; Platelet Count 143 10^3/ul (150-450); Red Blood Count 2.35 10^6/ul (4.0-5.4); Red Cell Distribution Width 14 % (10.5-15); White Blood Count 11.9 10^3/ul (3.5-10.8)
[2017-09-02 05:33] LABS: EGFR Non-African American 142.2 (>60)
[2017-09-02] MEDS: Mometasone/Formoter 200/5 MDI INH SCH ×2 (07:21→20:13)
[2017-09-02] MEDS ORDERED: LORazepam INJ* 2 MG/ML 1 ML VIAL IV PUSH ONE (07:38)
[2017-09-02] MEDS: Omeprazole CAP* 20 MG PO SCH ×2 (08:07→18:09)
[2017-09-02] MEDS: DULoxetine DR CAP* 30 MG CAP.DR PO SCH (08:07)
[2017-09-02] MEDS: cefTRIAXone(*) 1 GM in NS 0.9% 50 ML* 50 ML IVPB SCH (08:07)
[2017-09-02] MEDS: Metoprolol Succinate XL TAB* 25 MG PO SCH (08:07)
[2017-09-02] MEDS: oxyCODONE TAB* 5 MG TAB PO PRN ×3 (08:07→20:01)
[2017-09-02] MEDS: Multivitamins/Minerals TAB PO SCH (08:07)
[2017-09-02] MEDS: CMC:Escitalopram (NF) 10 MG TAB PO SCH ×2 (08:07→19:59)
[2017-09-02 09:15] LABS: Hematocrit 23 % (42-52); Hemoglobin 7.6 g/dl (14.0-18.0)
[2017-09-02] MEDS: oxyCODONE SR TAB(*) 15 MG TAB.SR PO SCH ×2 (09:21→20:00)
[2017-09-02] MEDS: Lidocaine 2% JELLY* 6 ML JELLY TOPICAL SCH ×3 (10:15→20:03)
--- NOTE | 2017-09-02 16:07 | PN ---
Subjective Date of Service: 09/02/17 Interval History: Patient continues with baseline pain in back and persistent and stable pain in abdomen. Occasional dizziness, none on standing. No CP, SOB, F/C, N/V, abdominal pain, diarrhea, Pain at urethral meatus. Twitching and leg crawling sensation at home routinely in evening with tingling pain in hands and feet intermittently loosely associated with anxiety. Has been having a hard time dealing with the of son and has been seeing him around with full cognizance that he is not there. Also feeling of disorientation in hospital and mild hallucinations. Family History: Unchanged from Admission Social History: Unchanged from Admission Past Medical History: Unchanged from Admission Objective Active Medications: Albuterol (Ventolin 2.5 Mg/3 Ml Neb.Damaris*) 2.5 mg INH Q4H PRN PRN Reason: SHORTNESS OF BREATH Albuterol (Ventolin Hfa Inhaler*) 2 puff INH Q4H PRN PRN Reason: SHORTNESS OF BREATH Duloxetine HCl (Cymbalta Cap*) 30 mg PO QAM [facility] Last Admin: 09/02/17 08:07 Dose: 30 mg Escitalopram Oxalate (Lexapro (Nf)) 20 mg PO BID [facility] Last Admin: 09/02/17 08:07 Dose: 20 mg Lidocaine HCl (Lidocaine 2% Jelly*) 1 applic TOPICAL TID [facility] Last Admin: 09/02/17 14:52 Dose: 1 applic Lorazepam (Ativan Inj*) 0.5 mg IV PUSH Q6H PRN PRN Reason: ANXIETY Metoprolol Succinate (Toprol Xl Tab*) 50 mg PO DAILY [facility] Last Admin: 09/02/17 08:07 Dose: 50 mg Mometasone Furoate/Formoterol Fumar (Dulera 200/5 Mdi*) 2 puff INH BID [facility] Last Admin: 09/02/17 07:21 Dose: 2 puff Multivitamins/Minerals (Theragran/Minerals Tab*) 1 tab PO DAILY [facility] Last Admin: 09/02/17 08:07 Dose: 1 tab Pto Nf Med* Glycerin (Liquid Suppository) 1 dose MI ONCE PRN PRN Reason: CONSTIPATION Last Admin: 09/01/17 21:46 Dose: 1 dose Omeprazole (Prilosec Cap*) 20 mg PO BID@0730,1630 [facility] Last Admin: 09/02/17 08:07 Dose: 20 mg Oxycodone HCl (Oxycontin(*)) 30 mg PO BID@0730,1930 [facility] Last Admin: 09/02/17 09:21 Dose: 30 mg Oxycodone HCl (Roxycodone Tab*) 10 mg PO Q6H PRN PRN Reason: PAIN Last Admin: 09/02/17 13:50 Dose: 10 mg Polyethylene Glycol/Electrolytes (Miralax*) 17 gm PO DAILY PRN PRN Reason: CONSTIPATION Last Admin: 09/01/17 23:15 Dose: 17 gm Vital Signs - 8 hr 09/02/17 09/02/17 09/02/17 08:03 08:34 09:00 Temperature Pulse Rate 76 72 Respiratory 17 23 23 Rate Blood Pressure 117/58 (mmHg) O2 Sat by Pulse 98 90 Oximetry 09/02/17 09/02/17 09/02/17 09:01 09:20 09:21 Temperature Pulse Rate 72 Respiratory 18 24 24 Rate Blood Pressure 114/58 (mmHg) O2 Sat by Pulse 92 Oximetry 09/02/17 09/02/17 09/02/17 10:00 10:01 11:00 Temperature Pulse Rate 75 74 73 Respiratory 27 26 22 Rate Blood Pressure 113/49 (mmHg) O2 Sat by Pulse 98 99 95 Oximetry 09/02/17 09/02/17 09/02/17 11:01 12:00 13:00 Temperature 99.1 F Pulse Rate 74 72 75 Respiratory 20 24 25 Rate Blood Pressure 116/49 116/51 122/52 (mmHg) O2 Sat by Pulse 98 99 95 Oximetry 09/02/17 09/02/17 09/02/17 13:59 14:00 14:02 Temperature Pulse Rate 74 70 74 Respiratory 28 23 22 Rate Blood Pressure 114/50 115/53 (mmHg) O2 Sat by Pulse 98 98 98 Oximetry Oxygen Devices in Use Now: Nasal Cannula Appearance: Patient is a 77yo male who appears stated age and is sitting in the bed in [facility]. Eyes: No Scleral Icterus, PERRLA Ears/Nose/Mouth/Throat: NL Teeth, Lips, Gums, Clear Oropharnyx, Mucous Membranes Moist Neck: NL Appearance and Movements; NL JVP, Trachea Midline Respiratory: Symmetrical Chest Expansion and Respiratory Effort, - - Diminished throughout. Cardiovascular: NL Sounds; No Murmurs; No JVD, RRR, - - Trace lower extremity edema. Abdominal: No Hepatosplenomegaly, - - Tender to palpation on right side of abdomen over hematoma.Large amount of eechymosis on right flank. Lymphatic: No Cervical Adenopathy Extremities: No Clubbing, Cyanosis Skin: No Nodules or Sclerosis Neurological: Alert and Oriented x 3, NL Sensation, NL Muscle Strength and Tone , - - CN II-XII intact. Sensation to light touch intact distally. Result Diagrams: 09/02/17 09:00 09/02/17 05:00 Microbiology and Other Data: Microbiology 08/31/17 15:00 Nasal Screen MRSA (PCR)(CLAUDIA) - Final Nasal Mrsa Not Detected Assess/Plan/Problems-Billing Assessment: Patient is a 72yo male with a PMH for CAD, COPD, CVA, Dizziness likely due to BPPV, who presents after a fall due to dizziness without LOC with abdominal trauma and severe blood loss anemia who is stabilizing. - Patient Problems (1) Acute blood loss anemia Current Visit: Yes Status: Acute Code(s): D62 - ACUTE POSTHEMORRHAGIC ANEMIA SNOMED Code(s): 266141168 Comment: Due to abdominal hematoma from mechanical fall precipitated by dizziness. Tranfused 1u PRBC. Decline in H/H slowing. Abdominal binder discontinued. DDAVP given. BP stable, previous hypotension. Fluids decreased to 75ml/hr. Continued H /H Q8H. (2) CAD (coronary artery disease) Current Visit: Yes Status: Acute Code(s): I25.10 - ATHSCL HEART DISEASE OF [place] CORONARY ARTERY W/O ANG PCTRS SNOMED Code(s): 58036303 Comment: Minimal atherosclerosis on pervious cath. No other known hisotry of CAD. No CP, Hold ASA, continue BB. (3) COPD (chronic obstructive pulmonary disease) Current Visit: Yes Status: Acute Code(s): J44.9 - CHRONIC OBSTRUCTIVE PULMONARY DISEASE, UNSPECIFIED SNOMED Code(s): 19579841 Comment: On baseline 4L O2. Continue inhalers and PRN albuterol. No exacerbation. (4) Chronic pain Current Visit: Yes Status: Acute Code(s): G89.29 - OTHER CHRONIC PAIN SNOMED Code(s): 77917056 Comment: Continue scheduled Oxycodone and PRN added. Pain moderately well controlled. (5) Dizziness Current Visit: Yes Status: Acute Code(s): R42 - DIZZINESS AND GIDDINESS SNOMED Code(s): 703537256 Comment: BPPV by description. Never had a formal evaluation. No Nystagmus. No signs of CVA. Would possibly benefit from vestibular PT. Will check hemoglobin A1c and vitamin B12 to assess for peripheral neuropathy causing tingling and dizziness. (6) DVT prophylaxis Current Visit: Yes Status: Acute Code(s): VXR7540 - SNOMED Code(s): 668109342 Comment: SCDs in setting of bleeding. (7) Complicated grief Current Visit: Yes Status: Acute Code(s): F43.29 - ADJUSTMENT DISORDER WITH OTHER SYMPTOMS; Z63.4 - DISAPPEARANCE AND OF FAMILY MEMBER SNOMED Code(s ): 848686684 Comment: Complicated grief due to of son 2 years ago. Occasionally sees son out of corner of his eye. Also happened after of brothers. Exacerbated in hospital likely due to unfamiliar surroundings. Social work consult. Could benefit from outpatient counseling. (8) Obstructive sleep apnea on CPAP Current Visit: No Status: Chronic Code(s): G47.33 - OBSTRUCTIVE SLEEP APNEA (ADULT) (PEDIATRIC) SNOMED Code(s): 12296995 Comment: Does not tolerated CPAP, chronic O2. (9) Full code status Current Visit: Yes Status: Acute Code(s): Z78.9 - OTHER SPECIFIED HEALTH STATUS SNOMED Code(s): 246348223 Status and Disposition: Inpatient.
[2017-09-02] MEDS ORDERED: GLYCERIN PR PRN (16:22)
[2017-09-02] MEDS: Albuterol HFA INHALER* 8 gm MDI INH PRN ×2 (20:09→23:49)
[2017-09-02 20:45] LABS: Hematocrit 22 % (42-52); Hemoglobin 7.4 g/dl (14.0-18.0)
[2017-09-02] MEDS: LORazepam INJ* 2 MG/ML 1 ML VIAL IV PUSH PRN (23:49)
[2017-09-03] MEDS: oxyCODONE TAB* 5 MG TAB PO PRN ×2 (02:01→10:41)
[2017-09-03 03:18] LABS: Hematocrit 23 % (42-52); Hemoglobin 7.8 g/dl (14.0-18.0)
[2017-09-03] MEDS: Mometasone/Formoter 200/5 MDI INH SCH ×2 (07:28→19:35)
[2017-09-03 07:45] LABS: Hematocrit 24 % (42-52)
[2017-09-03] MEDS: Albuterol HFA INHALER* 8 gm MDI INH PRN (08:28)
--- NOTE | 2017-09-03 08:29 | PN ---
Subjective Date of Service: 09/03/17 Interval History: Mr. Sethi reports pain in his back and hips but denies other specific complaint. He reports that he just feels bad all over. He denies chest pain or SOB and reports that his abdominal pain at the site of his hematoma has improved. He is tolerating oral intake well. Family History: Unchanged from Admission Social History: Unchanged from Admission Past Medical History: Unchanged from Admission Objective Active Medications: Albuterol (Ventolin 2.5 Mg/3 Ml Neb.Damaris*) 2.5 mg INH Q4H PRN Albuterol (Ventolin Hfa Inhaler*) 2 puff INH Q4H PRN Duloxetine HCl (Cymbalta Cap*) 30 mg PO QAM ARTI Escitalopram Oxalate (Lexapro (Nf)) 20 mg PO BID ARTI Lidocaine HCl (Lidocaine 2% Jelly*) 1 applic TOPICAL TID ARTI Lorazepam (Ativan Inj*) 0.5 mg IV PUSH Q6H PRN Metoprolol Succinate (Toprol Xl Tab*) 50 mg PO DAILY ARTI Mometasone Furoate/Formoterol Fumar (Dulera 200/5 Mdi*) 2 puff INH BID ARTI Multivitamins/Minerals (Theragran/Minerals Tab*) 1 tab PO DAILY ARTI Non-Formulary Medication (Non Formulary Med(Nf)) 1 dose IN Q24H PRN Omeprazole (Prilosec Cap*) 20 mg PO BID@0730,1630 ARTI Oxycodone HCl (Oxycontin(*)) 30 mg PO BID@0730,1930 ARTI Oxycodone HCl (Roxycodone Tab*) 10 mg PO Q6H PRN Polyethylene Glycol/Electrolytes (Miralax*) 17 gm PO DAILY PRN Vital Signs: Temp Pulse Resp BP Pulse Ox 98.2 F 77 24 143/51 100 09/03/17 08:43 09/03/17 08:43 09/03/17 10:41 09/03/17 08:43 09/03/17 08:43 Oxygen Devices in Use Now: Nasal Cannula Appearance: Male lying in bed in NAD, appears mildly SOB at rest and lethargic Eyes: No Scleral Icterus Ears/Nose/Mouth/Throat: Mucous Membranes Moist Neck: Trachea Midline Respiratory: Symmetrical Chest Expansion and Respiratory Effort, - - Diminished , crackles in right base Cardiovascular: NL Sounds; No Murmurs; No JVD, No Edema Abdominal: NL Sounds; No Tenderness; No Distention Lymphatic: No Cervical Adenopathy Extremities: No Edema Skin: No Rash or Ulcers Neurological: NL Muscle Strength and Tone, - - Oriented x 3 but is lethargic Nutrition: Taking PO's Result Diagrams: 09/03/17 07:39 09/02/17 05:00 Microbiology and Other Data: . Assess/Plan/Problems-Billing Assessment: Mr. Sethi is a 72yo male with a PMH for CAD, COPD, CVA, dizziness likely due to BPPV who presented after a fall due to dizziness with abdominal trauma and severe blood loss anemia, now with SOB and pulmonary edema after fluid resuscitation. - Patient Problems (1) Altered mental status Comment: - Patient answers questions appropriately and is oriented, but appears more lethargic and tachypneic. - Chest xray with concern for pulmonary edema, lasix now. Also note that patient had a positive urine culture with hx of self catheterization, plan to start ceftriaxone now with concern for UTI. (2) SOB (shortness of breath) Comment: - Patient appears more SOB at rest today, tachypneic. - Remains on 2L NC with stable vitals, leukocytosis improving. - Chest xray consistent with pulmonary edema and acute diastolic CHF exacerbation in setting of aggressive hydration on arrival (last now EF 50-55% in 2011). - Furosemide IV now, monitor I/Os and daily weights. - Monitor closely. (3) COPD (chronic obstructive pulmonary disease) Comment: - More tachypneic today, workup as per above. - Now on 2L NC. Continue inhalers and PRN albuterol. (4) Urinary retention Comment: - Chronic, self catheterizes at home, follows with Dr. Cortez. - Continue ellison. (5) Acute blood loss anemia Comment: - Hgb stable at 8.0 after 1 unit PRBC. - Due to abdominal hematoma from mechanical fall precipitated by dizziness. (6) Dizziness Comment: - BPPV by description. Never had a formal evaluation. No nystagmus. No signs of CVA. Would possibly benefit from vestibular PT. - Checked hemoglobin A1c (4.8) and vitamin B12 (560), not contributory to peripheral neuropathy causing tingling and dizziness. (7) CAD (coronary artery disease) Comment: - Minimal atherosclerosis on pervious cath. No other known history of CAD. - Hold ASA, continue BB. (8) Complicated grief Comment: - Complicated grief due to of son 2 years ago. Occasionally sees son out of corner of his eye. Also happened after of brothers. Exacerbated in hospital likely due to unfamiliar surroundings. - Social work consult. Could benefit from outpatient counseling. (9) Depression Comment: - Continue escitalopram and duloxetine. (10) Chronic pain Comment: - Reports pain in back and hips, but less abdominal pain at site of hematoma. - Continue scheduled Oxycodone and PRN added. (11) Obstructive sleep apnea on CPAP Comment: - Does not tolerated CPAP, chronic O2. (12) DVT prophylaxis Comment: - SCDs in setting of bleeding. (13) Full code status Comment: Status and Disposition: Inpatient. Anticipate discharge to home when medically stable.
[2017-09-03] MEDS: CMC:Escitalopram (NF) 10 MG TAB PO SCH ×2 (08:30→21:10)
[2017-09-03] MEDS: Metoprolol Succinate XL TAB* 25 MG PO SCH (08:30)
[2017-09-03] MEDS: Multivitamins/Minerals TAB PO SCH (08:31)
[2017-09-03] MEDS: DULoxetine DR CAP* 30 MG CAP.DR PO SCH (08:31)
[2017-09-03] MEDS: Omeprazole CAP* 20 MG PO SCH ×2 (08:32→15:57)
[2017-09-03] MEDS: oxyCODONE SR TAB(*) 15 MG TAB.SR PO SCH ×2 (08:32→21:09)
[2017-09-03] MEDS: Lidocaine 2% JELLY* 6 ML JELLY TOPICAL SCH ×3 (08:34→21:10)
[2017-09-03] MEDS ORDERED: cefTRIAXone(*) 1 GM in NS 0.9% 50 ML* 50 ML IVPB SCH (10:00)
[2017-09-03] MEDS ORDERED: Furosemide IV* 10 MG/ML VIAL (40 MG) IV ONE ×2 (10:57→13:59)
--- NOTE | 2017-09-03 11:05 | RAD ---
HISTORY: Shortness of breath COMPARISONS: August 31, 2017 VIEWS: 1: frontal portable view of the chest at 10:35 AM FINDINGS: LINES AND TUBES: None. CARDIOMEDIASTINAL SILHOUETTE: The cardiac silhouette is enlarged. The cardiomediastinal silhouette is otherwise normal for portable technique. PLEURA: The costophrenic angles are sharp. No pleural abnormalities are noted. LUNG PARENCHYMA: There is a diffuse reticular pattern with indistinct pulmonary vessels. ABDOMEN: The upper abdomen is clear. There is no subphrenic gas. BONES AND SOFT TISSUES: No bone or soft tissue abnormalities are noted. IMPRESSION: CARDIOMEGALY WITH PULMONARY INTERSTITIAL EDEMA
[2017-09-03] MEDS ORDERED: oxyCODONE TAB* 5 MG TAB PO PRN (12:19)
[2017-09-03] MEDS ORDERED: Furosemide IV* 10 MG/ML VIAL (40 MG) ONE (14:01)
[2017-09-03] MEDS ORDERED: Potassium Chlor TAB* 20 MEQ TAB.ER PO ONE (14:58)
[2017-09-03] MEDS: KCL 20 MEQ/100 ML IVPREMIX* 20 MEQ/100 ML BAG IV SCH ×2 (15:55→21:18)
[2017-09-04 06:11] LABS: ABS Basophils 0 10^3/ul (0-0.2); ABS Eosinophils 0.8 10^3/ul (0-0.6); ABS Lymphocytes 2.1 10^3/ul (1.0-4.8); ABS Neutrophils 5.5 10^3/ul (1.5-7.7); ABS Nucleated RBC 0 10^3/ul; Eosinophil % 8.1 % (0-6); Hematocrit 24 % (42-52); Hemoglobin 8.4 g/dl (14.0-18.0); Lymphocyte % 21.8 % (25-47); Mean Corpuscular HGB Conc 35 g/dl (31-36); Mean Corpuscular Hemoglobin 34 pg (27-31); Mean Corpuscular Volume 96 fL (80-94); Mean Platelet Volume 7.4 um3 (7.4-10.4); Nucleated Red Blood Cells % 0.1; Platelet Count 187 10^3/ul (150-450); Red Cell Distribution Width 14 % (10.5-15); White Blood Count 9.4 10^3/ul (3.5-10.8)
[2017-09-04 06:33] LABS: EGFR Non-African American 151.6 (>60)
--- NOTE | 2017-09-04 07:31 | PN ---
Subjective Date of Service: 09/04/17 Interval History: Mr. Sethi was initially very drowsy this morning but oriented. For that reason his routine narcotics were decreased. This afternoon he is awake and appropriate and complaining of back pain. He denies other complaint including chest pain, SOB, nausea, or abdominal pain. Family History: Unchanged from Admission Social History: Unchanged from Admission Past Medical History: Unchanged from Admission Objective Active Medications: Albuterol (Ventolin 2.5 Mg/3 Ml Neb.Damaris*) 2.5 mg INH Q4H PRN Albuterol (Ventolin Hfa Inhaler*) 2 puff INH Q4H PRN Duloxetine HCl (Cymbalta Cap*) 30 mg PO QAM ARTI Escitalopram Oxalate (Lexapro (Nf)) 20 mg PO BID ARTI Lidocaine HCl (Lidocaine 2% Jelly*) 1 applic TOPICAL TID ARTI Lorazepam (Ativan Inj*) 0.5 mg IV PUSH Q6H PRN Metoprolol Succinate (Toprol Xl Tab*) 50 mg PO DAILY ARTI Mometasone Furoate/Formoterol Fumar (Dulera 200/5 Mdi*) 2 puff INH BID ARTI Multivitamins/Minerals (Theragran/Minerals Tab*) 1 tab PO DAILY ARTI Non-Formulary Medication (Non Formulary Med(Nf)) 1 dose MN Q24H PRN Omeprazole (Prilosec Cap*) 20 mg PO BID@0730,1630 ARTI Oxycodone HCl (Oxycontin(*)) 30 mg PO BID@0730,1930 ARTI Oxycodone HCl (Roxycodone Tab*) 10 mg PO Q12H PRN Polyethylene Glycol/Electrolytes (Miralax*) 17 gm PO DAILY PRN Vital Signs: Temp Pulse Resp BP Pulse Ox 97.9 F 69 20 126/57 100 09/04/17 07:22 09/04/17 07:00 09/04/17 07:00 09/04/17 07:00 09/04/17 07:00 Oxygen Devices in Use Now: Nasal Cannula Appearance: Male lying in bed in NAD Eyes: No Scleral Icterus Ears/Nose/Mouth/Throat: Mucous Membranes Moist Neck: Trachea Midline Respiratory: Symmetrical Chest Expansion and Respiratory Effort, Clear to Auscultation Cardiovascular: NL Sounds; No Murmurs; No JVD, No Edema Abdominal: NL Sounds; No Tenderness; No Distention Extremities: No Edema Skin: No Rash or Ulcers, - - ecchymosis to right lower abdomen Neurological: Alert and Oriented x 3, NL Muscle Strength and Tone Nutrition: Taking PO's Result Diagrams: 09/04/17 05:56 09/04/17 05:56 Microbiology and Other Data: . Assess/Plan/Problems-Billing Assessment: Mr. Sethi is a 72yo male with a PMH for CAD, COPD, CVA, dizziness likely due to BPPV who presented after a fall due to dizziness with abdominal trauma and severe blood loss anemia, now with SOB and pulmonary edema after fluid resuscitation. - Patient Problems (1) Pulmonary edema Comment: - Resolved with lasix and bipap. - Acute diastolic CHF secondary to IVF on arrival for hypotension and acute blood loss anemia. (2) Altered mental status Comment: - Improved this afternoon. - Now suspect secondary to narcotics and pulmonary edema, titrate narcotics based on pain and sedation. Plan to increase to 20mg BID today with one time dose of oxycodone IR 10mg now. - Ammonia, LFTs negative. CT brain negative. EEG report pending. (3) COPD (chronic obstructive pulmonary disease) Comment: - No evidence of exacerbation - Now on 2L NC. Continue inhalers and PRN albuterol. (4) Urinary retention Comment: - No clear evidence of UTI based on low colony count of urine culture, d/c abx. - Chronic, self catheterizes at home, follows with Dr. Cortez. - Continue ellison. (5) Acute blood loss anemia Comment: - Hgb stable at 8.4 after 1 unit PRBC. - Due to abdominal hematoma from mechanical fall precipitated by dizziness. (6) Dizziness Comment: - BPPV by description. Never had a formal evaluation. No nystagmus. No signs of CVA. Would possibly benefit from vestibular PT. - Checked hemoglobin A1c (4.8) and vitamin B12 (560), not contributory to peripheral neuropathy causing tingling and dizziness. (7) CAD (coronary artery disease) Comment: - Minimal atherosclerosis on pervious cath. No other known history of CAD. - Hold ASA, continue BB. (8) Complicated grief Comment: - Complicated grief due to of son 2 years ago. Occasionally sees son out of corner of his eye. Also happened after of brothers. Exacerbated in hospital likely due to unfamiliar surroundings. - Social work consult. Could benefit from outpatient counseling. (9) Depression Comment: - Continue escitalopram and duloxetine. (10) Chronic pain Comment: - Reports pain in back and hips, but less abdominal pain at site of hematoma. - Continue scheduled Oxycodone and PRN added. (11) Obstructive sleep apnea on CPAP Comment: - Does not tolerate CPAP, chronic O2. (12) DVT prophylaxis Comment: - SCDs in setting of bleeding. (13) Full code status Comment: Status and Disposition: Inpatient. Anticipate discharge to home when medically stable.
[2017-09-04] MEDS: Omeprazole CAP* 20 MG PO SCH ×2 (07:47→16:42)
[2017-09-04] MEDS: Metoprolol Succinate XL TAB* 25 MG PO SCH (07:47)
[2017-09-04] MEDS: CMC:Escitalopram (NF) 10 MG TAB PO SCH ×2 (07:47→19:52)
[2017-09-04] MEDS: DULoxetine DR CAP* 30 MG CAP.DR PO SCH (07:47)
[2017-09-04] MEDS: Multivitamins/Minerals TAB PO SCH (07:47)
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
[2017-09-04] MEDS ORDERED: oxyCODONE SR TAB(*) 10 MG TAB.SR PO SCH (07:58)
[2017-09-04] MEDS: Mometasone/Formoter 200/5 MDI INH SCH ×2 (08:19→19:41)
[2017-09-04] MEDS: Lidocaine 2% JELLY* 6 ML JELLY TOPICAL SCH ×3 (08:28→19:53)
[2017-09-04] MEDS: oxyCODONE SR TAB(*) 15 MG TAB.SR PO SCH (08:29)
--- NOTE | 2017-09-04 10:59 | RAD ---
INDICATION: Fall, altered mental status. COMPARISON: Comparison is made with a prior CT of the brain from August 15, 2016. TECHNIQUE: Contiguous axial sections of the brain were obtained from the skull base to the vertex without contrast. FINDINGS: The ventricles, cisterns and sulci are enlarged consistent with diffuse atrophy. There are small areas of decreased density in the subcortical and periventricular white matter suggestive of mild chronic small vessel ischemic changes. There is calcification within the left lentiform nucleus which is unchanged from the prior study. No other focal abnormalities or mass effect are seen. There is no evidence for hemorrhage. No significant focal osseous abnormality is seen. The visualized portion of the paranasal sinuses and mastoid air cells appear clear. IMPRESSION: 1. NO EVIDENCE FOR ACUTE INTRACRANIAL ABNORMALITY. 2. ATROPHY AND FINDINGS CONSISTENT WITH MILD CHRONIC SMALL VESSEL ISCHEMIC CHANGES.
[2017-09-04] MEDS ORDERED: oxyCODONE TAB* 5 MG TAB PO ONE (15:59)
[2017-09-04] MEDS: oxyCODONE SR TAB(*) 20 MG TAB.SR PO SCH (19:52)
[2017-09-04] MEDS: LORazepam INJ* 2 MG/ML 1 ML VIAL IV PUSH PRN (20:38)
[2017-09-05 04:56] LABS: Hematocrit 24 % (42-52); Hemoglobin 8.1 g/dl (14.0-18.0); Mean Corpuscular HGB Conc 34 g/dl (31-36); Mean Corpuscular Hemoglobin 33 pg (27-31); Mean Corpuscular Volume 96 fL (80-94); Mean Platelet Volume 7.4 um3 (7.4-10.4); Platelet Count 205 10^3/ul (150-450); Red Blood Count 2.46 10^6/ul (4.0-5.4); Red Cell Distribution Width 14 % (10.5-15); White Blood Count 11.3 10^3/ul (3.5-10.8)
[2017-09-05 05:07] LABS: EGFR Non-African American 158.4 (>60)
--- NOTE | 2017-09-05 06:22 | EEG ---
ELECTROENCEPHALOGRAPHY: DATE OF STUDY: 09/04/17 LOCATION: He is an inpatient in ICU, bed 8. REFERRING PROVIDER: Adeline Chavez NP CLINICAL PROBLEM: The patient fell at home and was admitted to the intensive care unit with a hematoma. The patient complained of lightheadedness and dizziness on 09/03/17, and became unresponsive with a fixed gaze and not responding to nurse's questions. He subsequently recovered. Rule out seizures. MEDICATIONS: Include: 1. Duloxetine. 2. Oxycodone. 3. Lorazepam. 4. Ceftriaxone. 5. Metoprolol. 6. Escitalopram. REPORT: This 16-channel EEG is remarkable for background rhythms consisting of posterior rhythm at about 6 cycles per second from the left occipital derivations and 6 to 7-1/2 cycles per second from the right. The patient is awake. Low- voltage beta rhythms are seen bifrontally interspersed with some low -amplitude theta activity. Occasional left occipital slowing is more pronounced. The patient does not appear to fall asleep. Activation procedures are not attempted. CLINICAL IMPRESSION: Abnormal EEG due to generalized slowing of background rhythms, a little more prominently from the left hemisphere than the right. This was compatible with diffuse cerebral dysfunction, perhaps more from the left hemisphere than from the right. There are no epileptiform features to this recording. [id number]/[facility] #: [id number] [facility]ITALRick
[2017-09-05] MEDS: oxyCODONE SR TAB(*) 20 MG TAB.SR PO SCH ×2 (06:51→20:12)
[2017-09-05] MEDS: Mometasone/Formoter 200/5 MDI INH SCH ×2 (07:16→20:24)
--- NOTE | 2017-09-05 08:04 | PN ---
Subjective Date of Service: 09/05/17 Interval History: Patient reports he feels better today and got out of bed for the first time in many days. He continues to feel weak. Per nursing he appears to be much better today. He reports at home he usually only wears his oxygen when he is exerting himself and at bedtime. He currently denies feeling SOB. No CP. He currently feel exhausted d/t "exerting himself this morning". Family History: Unchanged from Admission Social History: Unchanged from Admission Past Medical History: Unchanged from Admission Objective Active Medications: Albuterol (Ventolin 2.5 Mg/3 Ml Neb.Damaris*) 2.5 mg INH Q4H PRN PRN Reason: SHORTNESS OF BREATH Last Admin: 09/04/17 04:59 Dose: 2.5 mg Albuterol (Ventolin Hfa Inhaler*) 2 puff INH Q4H PRN PRN Reason: SHORTNESS OF BREATH Last Admin: 09/03/17 08:28 Dose: 2 puff Duloxetine HCl (Cymbalta Cap*) 30 mg PO QAM [facility] Last Admin: 09/04/17 07:47 Dose: 30 mg Escitalopram Oxalate (Lexapro (Nf)) 20 mg PO BID [facility] Last Admin: 09/04/17 19:52 Dose: 20 mg Lidocaine HCl (Lidocaine 2% Jelly*) 1 applic TOPICAL TID [facility] Last Admin: 09/04/17 19:53 Dose: 1 applic Lorazepam (Ativan Inj*) 0.5 mg IV PUSH Q6H PRN PRN Reason: ANXIETY Last Admin: 09/04/17 20:38 Dose: 0.5 mg Metoprolol Succinate (Toprol Xl Tab*) 50 mg PO DAILY [facility] Last Admin: 09/04/17 07:47 Dose: 50 mg Mometasone Furoate/Formoterol Fumar (Dulera 200/5 Mdi*) 2 puff INH BID [facility] Last Admin: 09/05/17 07:16 Dose: 2 puff Multivitamins/Minerals (Theragran/Minerals Tab*) 1 tab PO DAILY [facility] Last Admin: 09/04/17 07:47 Dose: 1 tab Non-Formulary Medication (Non Formulary Med(Nf)) 1 dose [place] Q24H PRN PRN Reason: CONSTIPATION Omeprazole (Prilosec Cap*) 20 mg PO BID@0730,1630 [facility] Last Admin: 09/04/17 16:42 Dose: 20 mg Oxycodone HCl (Oxycontin(*)) 20 mg PO BID@30,1930 [facility] Last Admin: 09/05/17 06:51 Dose: 20 mg Polyethylene Glycol/Electrolytes (Miralax*) 17 gm PO DAILY PRN PRN Reason: CONSTIPATION Last Admin: 09/01/17 23:15 Dose: 17 gm Vital Signs - 8 hr 09/05/17 09/05/17 09/05/17 01:00 02:00 03:00 Temperature Pulse Rate 77 79 76 Respiratory 27 27 29 Rate Blood Pressure 111/59 112/57 101/60 (mmHg) O2 Sat by Pulse 100 99 99 Oximetry 09/05/17 09/05/17 09/05/17 03:49 04:00 04:40 Temperature 98.9 F Pulse Rate 79 Respiratory 27 27 Rate Blood Pressure 132/65 (mmHg) O2 Sat by Pulse 99 Oximetry 09/05/17 09/05/17 09/05/17 05:00 05:01 06:00 Temperature Pulse Rate 76 76 77 Respiratory 26 27 29 Rate Blood Pressure 116/58 121/62 (mmHg) O2 Sat by Pulse 98 98 99 Oximetry 09/05/17 09/05/17 09/05/17 06:51 07:00 07:17 Temperature Pulse Rate 76 76 Respiratory 27 28 18 Rate Blood Pressure 122/62 (mmHg) O2 Sat by Pulse 100 96 Oximetry Oxygen Devices in Use Now: Nasal Cannula Appearance: chronically ill male sitting up in a chair in NAD. A+O x3 Eyes: No Scleral Icterus, PERRLA Ears/Nose/Mouth/Throat: NL Teeth, Lips, Gums, Mucous Membranes Moist Neck: NL Appearance and Movements; NL JVP Respiratory: - - mildy dyspneic at rest, mild crackles in bases b/l Cardiovascular: NL Sounds; No Murmurs; No JVD, RRR, - - trace -1+ LE edema Lymphatic: No Cervical Adenopathy Extremities: No Clubbing, Cyanosis, - - right leg appears larger than left, no calf tenderness Skin: - - right lower rowe has large ecchymosis area, right lateral trunk has large diffuse area of ecchymosis in different stages of healing from under axillary down side. Neurological: Alert and Oriented x 3, NL Sensation, NL Muscle Strength and Tone Lines/Tubes/Other Access: Clean, Dry and Intact Peripheral IV Nutrition: Taking PO's Result Diagrams: 09/05/17 04:42 09/05/17 04:42 Microbiology and Other Data: . Assess/Plan/Problems-Billing Assessment: Mr. Sethi is a 72yo male with a PMH for CAD, COPD, CVA, dizziness likely due to BPPV who presented after a fall due to dizziness with abdominal trauma and severe blood loss anemia, now with SOB and pulmonary edema after fluid resuscitation. - Patient Problems (1) Pulmonary edema Comment: - Resolved with lasix and bipap. - Acute diastolic CHF secondary to IVF and PRBCs on arrival for hypotension and acute blood loss anemia. - Obtain ECHO (2) Acute blood loss anemia Comment: - Hgb stable at 8.1 after 1 unit PRBC. Continue to monitor HH - Due to abdominal hematoma from mechanical fall precipitated by dizziness. (3) Dizziness Comment: - Currently denies dizziness - BPPV by description. Never had a formal evaluation. No nystagmus. No signs of CVA. Would possibly benefit from vestibular PT. - Checked hemoglobin A1c (4.8) and vitamin B12 (560), not contributory to peripheral neuropathy causing tingling and dizziness. (4) Altered mental status Comment: - Improving. - Suspect secondary to narcotics. Narcotics decreased from home dosage of 30 mg BID to 20mg BID, per nursing staff much improvement today - Ammonia, LFTs negative. Repeat CT brain negative 09/04. - EEG, showing cerebral dysfunction but no epileptiform discharges noted. (5) Recurrent falls Comment: - Patient reports frequent falls the last 6 months. PT/OT. Most likely will require subacute rehab (6) CAD (coronary artery disease) Comment: - Minimal atherosclerosis on pervious cath. No other known history of CAD. - Hold ASA, continue BB. (7) COPD (chronic obstructive pulmonary disease) Comment: - No evidence of exacerbation - Now on 3L NC - D/C oxygen at rest with goal of O2 sat 90-94%. - Continue inhalers and PRN albuterol. (8) Chronic pain Comment: - Reports pain in back and hips, but less abdominal pain at site of hematoma. - Continue scheduled Oxycodone and PRN added. (9) Complicated grief Comment: - Complicated grief due to of son 2 years ago. Occasionally sees son out of corner of his eye. Also happened after of brothers. Exacerbated in hospital likely due to unfamiliar surroundings. - Social work consult. Could benefit from outpatient counseling. (10) Depression Comment: - Continue escitalopram and duloxetine. (11) Obstructive sleep apnea on CPAP Comment: - Non-compliant with CPAP, intermittent chronic O2. Concern for chronic respiratory failure. Encouraged pt to be compliant with CPAP - at this time he agrees. Refer to Pulmonology as outpt (12) DVT prophylaxis Comment: - SCDs in setting of bleeding. (13) Full code status Comment: Status and Disposition: Inpatient. Anticipate discharge to home when medically stable. Most likely will need subacute rehab. PT/OT
[2017-09-05] MEDS: DULoxetine DR CAP* 30 MG CAP.DR PO SCH (08:09)
[2017-09-05] MEDS: Metoprolol Succinate XL TAB* 25 MG PO SCH (08:09)
[2017-09-05] MEDS: CMC:Escitalopram (NF) 10 MG TAB PO SCH ×2 (08:10→20:13)
[2017-09-05] MEDS: Omeprazole CAP* 20 MG PO SCH ×2 (08:10→17:12)
[2017-09-05] MEDS: Lidocaine 2% JELLY* 6 ML JELLY TOPICAL SCH ×3 (08:10→22:31)
[2017-09-05] MEDS: Multivitamins/Minerals TAB PO SCH (08:10)
[2017-09-05] MEDS: LORazepam INJ* 2 MG/ML 1 ML VIAL IV PUSH PRN (11:05)
--- NOTE | 2017-09-05 12:58 | RAD ---
HISTORY: Right leg pain after a fall 4 days earlier TECHNIQUE: Multiple transverse and longitudinal ultrasound images were obtained of the veins of the right lower extremity using grayscale, color Doppler, and spectral Doppler imaging with and without compression and with augmentation. FINDINGS: VEINS: The common femoral vein, deep femoral vein, femoral vein and popliteal vein are compressible throughout their course, with normal flow on color Doppler imaging and normal response to augmentation on spectral Doppler imaging. SOFT TISSUES: In the subcutaneous tissue overlying the anterior right lower leg there is a mostly anechoic and avascular collection measuring 0.7 x 3.8 cm in the axial plane and 4.6 cm in cephalocaudal dimension. IMPRESSION: 1. No sonographic evidence of deep vein thrombosis. 2. With a recent history of trauma, sonographic findings are most consistent with subcutaneous hematoma at the anterior right lower leg.
[2017-09-05] MEDS: Polyethylene Glycol 3350* 17 GM PACKET PO PRN (14:39)
--- NOTE | 2017-09-05 15:22 | ECHO ---
Patient: CRYSTAL CAMPOS [facility] Rec#: [id number] : 1940 Date: 09/05/2017 Age: 77y Height: 188 cm / 74.0 in Weight: 130.6 kg / 287.8 lbs Sex: M BSA: 2.5 Room#: [facility] Admit Date#: 08/31/2017 Type: Inpatient Referring: Kaylyn Colby Reading: Anay Snyder MD Geriatrician: Lynnette Adame RN RDCS CC: Brad Jacob MD CC: Royal Paz MD Transthoracic Echocardiogram Indication: Acute pulmonary edema BP: 109/57 HR: 68 Rhythm: NSR with PACs Findings History: CAD, COPD, obesity, INDIGO on BiPAP, CVA, dizziness, suspected BPPV Technical Comments: The study is technically limited due to poor parasternal windows. The study is technically limited due to patient body habitus. The study is technically limited due to the patient's smoking history. The study is technically limited due to patient being on BIPAP during study. Left Ventricle: The left ventricular chamber size is normal. Moderate concentric left ventricular hypertrophy is observed.Additional basilar septal thickening. There is normal left ventricular systolic function. The estimated ejection fraction is 55-60%. There is a left ventricular septal wall motion abnormality observed, possibly due to the presence of a left bundle branch block. Abnormal left ventricular diastolic filling is observed, consistent with impaired relaxation. Left Atrium: The left atrium is moderately dilated. Right Ventricle: The right ventricular cavity size is normal. The right ventricular global systolic function is mildly reduced. Right Atrium: The right atrium is moderately dilated. Aortic Valve: The aortic valve structure is not well visualized. The aortic valve leaflets are mildly thickened. There is no evidence of aortic regurgitation. There is no evidence of aortic stenosis. Mitral Valve: The mitral valve leaflets are mildly thickened. There is a trace of mitral regurgitation. There is no evidence of mitral stenosis. Tricuspid Valve: The tricuspid valve leaflets are normal. There is trace tricuspid regurgitation. Unable to estimate the right ventricular systolic pressure. There is no tricuspid stenosis. Pulmonic Valve: The pulmonic valve structure is not well visualized. Pericardium: There is no significant pericardial effusion. A pericardial fat pad is visualized. Aorta: The aorta is not well visualized. There is moderate dilatation of the ascending aorta. The aortic arch is not well visualized. There is mild dilatation of the aortic root. Pulmonary Artery: The main pulmonary artery is not well visualized. Venous: The venous system is not well visualized. The inferior vena cava is not visualized. Conclusions The study is technically limited, patient being on BIPAP. Moderate concentric left ventricular hypertrophy is observed. There is a left ventricular septal wall motion abnormality observed, possibly due to the presence of a left bundle branch block. The estimated ejection fraction is 55-60%. Abnormal left ventricular diastolic filling is observed, consistent with impaired relaxation. The right ventricular global systolic function is mildly reduced. The left atrium is moderately dilated. The right atrium is moderately dilated. There is a trace of mitral regurgitation. There is trace tricuspid regurgitation. Unable to estimate the right ventricular systolic pressure. There is moderate dilatation of the ascending aorta: 4.0 cm. Compared with prior echo of 08/07/16, ventricular and valvular function oare stable, aorta diameter previosly measured at 4.3 cm. Measurements Name Value Normal Range RVDdMajor (2D) 3.6 cm (2.2 - 4.4) RAd ISD 4CH 5.9 cm (3.4 - 4.9) RA (A4C)W 3.9 cm (2.9 - 4.6) IVSd (2D) 1.6 cm (0.6 - 1) LVPWd (2D) 1.3 cm (0.6 - 1) LVIDd (2D) 4.2 cm (3.6 - 5.4) Ao root diameter (2D) 3.6 cm (2.1 - 3.5) Ascending Ao 4 cm (2.1 - 3.4) LAd ISD 4CH 5.9 cm (2.9 - 5.3) LA ISD 4CH W 4.8 cm (2.5 - 4.5) Name Value Normal Range LA ESV SP 4CH (A/L) 93 ml - LA ESV SP 2CH (A/L) 126 ml - LA ESV BP (A/L) 113 ml - LA ESV BP (A/L) index 44.5 ml/m2 - LA ESV SP 4CH (MOD) 88 ml - LA ESV SP 2CH (MOD) 121 ml - Name Value Normal Range MV E-wave Vmax 0.89 m/sec - MV deceleration time 294 msec - MV A-wave Vmax 0.86 m/sec - MV E:A ratio 1 ratio - LV septal e' Vmax 0.07 m/sec - LV lateral e' Vmax 0.11 m/sec - LV E:e' septal ratio 12.7 ratio - LV E:e' lateral ratio 8.1 ratio - Name Value Normal Range AV Vmax 1.7 m/sec - AV VTI 39.8 cm - AV peak gradient 11.8 mmHg - AV mean gradient 7.2 mmHg - LVOT Vmax 1.3 m/sec - LVOT VTI 25.7 cm - LVOT peak gradient 7.2 mmHg - LVOT mean gradient 4 mmHg - Name Value Normal Range PV Vmax 1 m/sec -
[2017-09-05 17:20] LABS: Hematocrit 25 % (42-52); Hemoglobin 8.4 g/dl (14.0-18.0)
[2017-09-05] MEDS: Acetaminophen TAB* 325 MG PO PRN (23:18)
[2017-09-06 05:55] LABS: ABS Basophils 0 10^3/ul (0-0.2); ABS Eosinophils 0.7 10^3/ul (0-0.6); ABS Lymphocytes 2.3 10^3/ul (1.0-4.8); ABS Monocytes 1.5 10^3/ul (0-0.8); ABS Neutrophils 6.4 10^3/ul (1.5-7.7); ABS Nucleated RBC 0 10^3/ul; Eosinophil % 6.6 % (0-6); Hematocrit 26 % (42-52); Hemoglobin 8.7 g/dl (14.0-18.0); Lymphocyte % 21.2 % (25-47); Mean Corpuscular HGB Conc 33 g/dl (31-36); Mean Corpuscular Hemoglobin 32 pg (27-31); Mean Corpuscular Volume 96 fL (80-94); Mean Platelet Volume 7.3 um3 (7.4-10.4); Nucleated Red Blood Cells % 0; Platelet Count 227 10^3/ul (150-450); Red Blood Count 2.73 10^6/ul (4.0-5.4); Red Cell Distribution Width 14 % (10.5-15)
[2017-09-06 06:11] LABS: EGFR Non-African American 183.1 (>60)
--- NOTE | 2017-09-06 07:36 | PN ---
Subjective Date of Service: 09/06/17 Interval History: patient continues to be drowsy, awakes easily per staff. Currently sitting in a chair visiting with feeding himself breakfast. Per she reports he has a lot of drowsiness at home and is very sedentary. She reports he is non- compliant with CPAP at home. The patient reports he will try to increase his use and nursing reports he wore for a short while during a nap. He reports "sharp waves of pain in her right side". Denies SOB/CP. Reports his appetite is improving. Continues to have generalized weakness and requiring 2 strong assist. They agree with subacute rehab. Family History: Unchanged from Admission Social History: Unchanged from Admission Past Medical History: Unchanged from Admission Objective Active Medications: Acetaminophen (Tylenol Tab*) 650 mg PO Q6H PRN PRN Reason: FEVER/PAIN Last Admin: 09/05/17 23:18 Dose: 650 mg Albuterol (Ventolin 2.5 Mg/3 Ml Neb.Damaris*) 2.5 mg INH Q4H PRN PRN Reason: SHORTNESS OF BREATH Last Admin: 09/04/17 04:59 Dose: 2.5 mg Albuterol (Ventolin Hfa Inhaler*) 2 puff INH Q4H PRN PRN Reason: SHORTNESS OF BREATH Last Admin: 09/03/17 08:28 Dose: 2 puff Duloxetine HCl (Cymbalta Cap*) 30 mg PO QAM [facility] Last Admin: 09/05/17 08:09 Dose: 30 mg Escitalopram Oxalate (Lexapro (Nf)) 20 mg PO BID [facility] Last Admin: 09/05/17 20:13 Dose: 20 mg Lidocaine HCl (Lidocaine 2% Jelly*) 1 applic TOPICAL TID [facility] Last Admin: 09/05/17 22:31 Dose: 1 applic Lorazepam (Ativan Inj*) 0.5 mg IV PUSH Q6H PRN PRN Reason: ANXIETY Last Admin: 09/05/17 11:05 Dose: 0.5 mg Metoprolol Succinate (Toprol Xl Tab*) 50 mg PO DAILY [facility] Last Admin: 09/05/17 08:09 Dose: 50 mg Mometasone Furoate/Formoterol Fumar (Dulera 200/5 Mdi*) 2 puff INH BID [facility] Last Admin: 09/05/17 20:24 Dose: 2 puff Multivitamins/Minerals (Theragran/Minerals Tab*) 1 tab PO DAILY [facility] Last Admin: 09/05/17 08:10 Dose: 1 tab Non-Formulary Medication (Non Formulary Med(Nf)) 1 dose [place] Q24H PRN PRN Reason: CONSTIPATION Omeprazole (Prilosec Cap*) 20 mg PO BID@0730,1630 [facility] Last Admin: 09/05/17 17:12 Dose: 20 mg Oxycodone HCl (Oxycontin(*)) 20 mg PO BID@0730,1930 [facility] Last Admin: 09/05/17 20:12 Dose: 20 mg Polyethylene Glycol/Electrolytes (Miralax*) 17 gm PO DAILY PRN PRN Reason: CONSTIPATION Last Admin: 09/05/17 14:39 Dose: 17 gm Vital Signs - 8 hr 09/06/17 04:07 Temperature 97.6 F Pulse Rate 70 Respiratory 22 Rate Blood Pressure 146/89 (mmHg) O2 Sat by Pulse 99 Oximetry Oxygen Devices in Use Now: Nasal Cannula Appearance: chronically ill make sitting up in a chair eating in NAD. A+O x3 Eyes: No Scleral Icterus, PERRLA Ears/Nose/Mouth/Throat: Clear Oropharnyx, Mucous Membranes Moist Respiratory: Symmetrical Chest Expansion and Respiratory Effort, Clear to Auscultation Cardiovascular: NL Sounds; No Murmurs; No JVD, RRR, - - trace edema LE B/L Abdominal: NL Sounds; No Tenderness; No Distention, - - obese Extremities: No Clubbing, Cyanosis Skin: - - lerge right sided thoracic area of eccymosis in different stages of healing. Neurological: Alert and Oriented x 3, NL Sensation, NL Muscle Strength and Tone Lines/Tubes/Other Access: Clean, Dry and Intact Peripheral IV Nutrition: Taking PO's Result Diagrams: 09/06/17 05:47 09/06/17 05:47 Microbiology and Other Data: . Assess/Plan/Problems-Billing Assessment: Mr. Sethi is a 72yo male with a PMH for CAD, COPD, CVA, dizziness likely due to BPPV who presented after a fall due to dizziness with abdominal trauma and severe blood loss anemia, now with SOB and pulmonary edema after fluid resuscitation. - Patient Problems (1) Pulmonary edema Comment: - Resolved with lasix and bipap. - Acute diastolic CHF secondary to IVF and PRBCs on arrival for hypotension and acute blood loss anemia. - ECHO EF 55% with diastolic dysfunction - Daily Weights (2) Acute blood loss anemia Comment: - Hgb stable at 8.7 after 1 unit PRBC. Continue to monitor HH - Secondary to abdominal hematoma from mechanical fall precipitated by dizziness. (3) Dizziness Comment: - Currently denies dizziness - BPPV by description. Never had a formal evaluation. No nystagmus. No signs of CVA. Would possibly benefit from vestibular PT. - Checked hemoglobin A1c (4.8) and vitamin B12 (560), not contributory to peripheral neuropathy causing tingling and dizziness. (4) Altered mental status Comment: - Resolved - Suspect secondary to narcotics. Narcotics decreased from home dosage of 30 mg BID to 20mg BID - Repeat CT brain negative 09/04. - EEG, showing cerebral dysfunction but no epileptiform discharges noted. (5) Recurrent falls Comment: - Patient reports frequent falls the last 6 months. PT/OT. Most likely will require subacute rehab (6) CAD (coronary artery disease) Comment: - Minimal atherosclerosis on pervious cath. No other known history of CAD. - Hold ASA, continue BB. (7) COPD (chronic obstructive pulmonary disease) Comment: - No evidence of exacerbation - Now on 3L NC - D/C oxygen at rest with goal of O2 sat 90-94%. - Continue inhalers and PRN albuterol. (8) Chronic pain Comment: - Reports pain in back and hips, but less abdominal pain at site of hematoma. - Continue scheduled Oxycodone and PRN added. (9) Complicated grief Comment: - Complicated grief due to of son 2 years ago. Occasionally sees son out of corner of his eye. Also happened after of brothers. Exacerbated in hospital likely due to unfamiliar surroundings. - Social work consult. Could benefit from outpatient counseling. (10) Depression Comment: - Continue escitalopram and duloxetine. (11) Obstructive sleep apnea on CPAP Comment: - Non-compliant with CPAP, intermittent chronic O2. Concern for chronic respiratory failure. Encouraged pt to be compliant with CPAP - at this time he agrees. Refer to Pulmonology as outpt (12) DVT prophylaxis Comment: - SCDs in setting of bleeding. (13) Full code status Comment: Status and Disposition: Inpatient. Most likely will need subacute rehab. PT/OT
[2017-09-06] MEDS: Mometasone/Formoter 200/5 MDI INH SCH ×2 (08:49→21:00)
[2017-09-06] MEDS: oxyCODONE SR TAB(*) 20 MG TAB.SR PO SCH ×2 (09:37→19:41)
[2017-09-06] MEDS: Multivitamins/Minerals TAB PO SCH (10:02)
[2017-09-06] MEDS: Omeprazole CAP* 20 MG PO SCH ×2 (10:02→19:41)
[2017-09-06] MEDS: Metoprolol Succinate XL TAB* 25 MG PO SCH (10:02)
[2017-09-06] MEDS: Acetaminophen TAB* 325 MG PO PRN ×2 (10:02→19:40)
[2017-09-06] MEDS: DULoxetine DR CAP* 30 MG CAP.DR PO SCH (10:02)
[2017-09-06] MEDS: CMC:Escitalopram (NF) 10 MG TAB PO SCH ×2 (10:02→19:41)
[2017-09-06] MEDS ORDERED: Cyclobenzaprine TAB* 10 MG PO ONE (12:05)
[2017-09-06] MEDS: Polyethylene Glycol 3350* 17 GM PACKET PO PRN (12:48)
[2017-09-06] MEDS: Lidocaine 2% JELLY* 6 ML JELLY TOPICAL SCH ×3 (15:34→19:44)
[2017-09-07] MEDS: Acetaminophen TAB* 325 MG PO PRN ×2 (02:44→16:51)
[2017-09-07 06:29] LABS: ABS Basophils 0.1 10^3/ul (0-0.2); ABS Eosinophils 0.8 10^3/ul (0-0.6); ABS Lymphocytes 1.9 10^3/ul (1.0-4.8); ABS Monocytes 1.2 10^3/ul (0-0.8); ABS Neutrophils 6.8 10^3/ul (1.5-7.7); ABS Nucleated RBC 0 10^3/ul; Eosinophil % 7.7 % (0-6); Hematocrit 27 % (42-52); Hemoglobin 9.2 g/dl (14.0-18.0); Lymphocyte % 17.3 % (25-47); Mean Corpuscular HGB Conc 34 g/dl (31-36); Mean Corpuscular Hemoglobin 33 pg (27-31); Mean Corpuscular Volume 95 fL (80-94); Mean Platelet Volume 7.4 um3 (7.4-10.4); Nucleated Red Blood Cells % 0.1; Platelet Count 261 10^3/ul (150-450); Red Blood Count 2.82 10^6/ul (4.0-5.4); Red Cell Distribution Width 14 % (10.5-15); White Blood Count 10.7 10^3/ul (3.5-10.8)
[2017-09-07 06:45] LABS: EGFR Non-African American 178.5 (>60)
[2017-09-07] MEDS ORDERED: Magnesium Sulfate 2 GM IV* 2 GM/50 ML BAG IVPB ONE (07:20)
--- NOTE | 2017-09-07 07:28 | PN ---
Subjective Date of Service: 09/07/17 Interval History: patient a little more awake today and per has more clarity today. Pt continues to report "Im sleepy". states this is his baseline and the last several years he is very sedentary. He continues to have generalized weakness. Family History: Unchanged from Admission Social History: Unchanged from Admission Past Medical History: Unchanged from Admission Objective Active Medications: Acetaminophen (Tylenol Tab*) 650 mg PO Q6H PRN PRN Reason: FEVER/PAIN Last Admin: 09/07/17 02:44 Dose: 650 mg Albuterol (Ventolin 2.5 Mg/3 Ml Neb.Damaris*) 2.5 mg INH Q4H PRN PRN Reason: SHORTNESS OF BREATH Last Admin: 09/04/17 04:59 Dose: 2.5 mg Albuterol (Ventolin Hfa Inhaler*) 2 puff INH Q4H PRN PRN Reason: SHORTNESS OF BREATH Last Admin: 09/03/17 08:28 Dose: 2 puff Duloxetine HCl (Cymbalta Cap*) 30 mg PO QAM [facility] Last Admin: 09/06/17 10:02 Dose: 30 mg Escitalopram Oxalate (Lexapro (Nf)) 20 mg PO BID [facility] Last Admin: 09/06/17 19:41 Dose: 20 mg Magnesium Sulfate (Magnesium Sulfate 2 Gm Iv*) 2 gm in 50 mls @ 50 mls/hr IVPB ONCE ONE Stop: 09/07/17 08:19 Lactobacillus Rhamnosus (Lactobacillus Acidophilus*) 1 tab PO BID [facility] Lidocaine HCl (Lidocaine 2% Jelly*) 1 applic TOPICAL TID [facility] Last Admin: 09/06/17 19:44 Dose: 1 applic Metoprolol Succinate (Toprol Xl Tab*) 50 mg PO DAILY [facility] Last Admin: 09/06/17 10:02 Dose: 50 mg Mometasone Furoate/Formoterol Fumar (Dulera 200/5 Mdi*) 2 puff INH BID [facility] Last Admin: 09/06/17 21:00 Dose: 2 puff Multivitamins/Minerals (Theragran/Minerals Tab*) 1 tab PO DAILY [facility] Last Admin: 09/06/17 10:02 Dose: 1 tab Non-Formulary Medication (Non Formulary Med(Nf)) 1 dose [place] Q24H PRN PRN Reason: CONSTIPATION Last Admin: 09/06/17 15:35 Dose: 1 dose Omeprazole (Prilosec Cap*) 20 mg PO BID@0730,1630 [facility] Last Admin: 09/06/17 19:41 Dose: 20 mg Oxycodone HCl (Oxycontin(*)) 10 mg PO BID@729,1930 [facility] Polyethylene Glycol/Electrolytes (Miralax*) 17 gm PO DAILY PRN PRN Reason: CONSTIPATION Last Admin: 09/06/17 12:48 Dose: 17 gm Vital Signs - 8 hr 09/07/17 02:41 Temperature 98.1 F Pulse Rate 82 Respiratory 22 Rate Blood Pressure 125/57 (mmHg) O2 Sat by Pulse 98 Oximetry Oxygen Devices in Use Now: Nasal Cannula Appearance: onese 77 yo male A+Ox3 in NAD. Eyes: No Scleral Icterus, PERRLA Ears/Nose/Mouth/Throat: NL Teeth, Lips, Gums, Mucous Membranes Moist Neck: NL Appearance and Movements; NL JVP Respiratory: Symmetrical Chest Expansion and Respiratory Effort, Clear to Auscultation Cardiovascular: NL Sounds; No Murmurs; No JVD, RRR, - - trace edema B/L LE Abdominal: - - obese, soft, right lateral large area of eccymosis, mild tenderness Lymphatic: No Cervical Adenopathy Extremities: No Clubbing, Cyanosis, - - strength 5/5 throughout Skin: No Rash or Ulcers, No Nodules or Sclerosis Neurological: Alert and Oriented x 3, NL Sensation, NL Gait, NL Muscle Strength and Tone Lines/Tubes/Other Access: Clean, Dry and Intact Peripheral IV Nutrition: Taking PO's Result Diagrams: 09/07/17 06:19 09/07/17 06:19 Microbiology and Other Data: . Assess/Plan/Problems-Billing Assessment: Mr. Sethi is a 72yo male with a PMH for CAD, COPD, CVA, dizziness likely due to BPPV who presented after a fall due to dizziness with abdominal trauma and severe blood loss anemia, now with SOB and pulmonary edema after fluid resuscitation. - Patient Problems (1) Acute blood loss anemia Comment: - Hgb stable at 9.2 after 1 unit PRBC. Continue to monitor HH - Secondary to abdominal hematoma from mechanical fall precipitated by dizziness and is weak at baseline (2) Pulmonary edema Comment: - Resolved with lasix and bipap. - Acute diastolic CHF secondary to IVF and PRBCs on arrival for hypotension and acute blood loss anemia. - ECHO EF 55% with diastolic dysfunction - Daily Weights (3) Dizziness Comment: - Resolved. Currently denies dizziness - BPPV by description. No nystagmus. No signs of CVA. Would possibly benefit from vestibular PT. - hemoglobin A1c (4.8) and vitamin B12 (560), not contributory to peripheral neuropathy causing tingling and dizziness. (4) Altered mental status Comment: - Intermittent confusion, improving. Suspect secondary to narcotics. Narcotics decreased from home dosage of 30 mg BID to 20mg BID, plan to decrease to 10 mg BID today - Repeat CT brain negative 09/04. - EEG, showing cerebral dysfunction but no epileptiform discharges noted. (5) Recurrent falls Comment: - Patient reports frequent falls the last 6 months. Hx of left rib fx (appear to be healing on imaging) PT/OT. will require subacute rehab (6) CAD (coronary artery disease) Comment: - Minimal atherosclerosis on previous cath. No other known history of CAD. - Hold ASA, continue BB. (7) COPD (chronic obstructive pulmonary disease) Comment: - No evidence of exacerbation - Now on 3L NC - D/C oxygen at rest with goal of O2 sat 90-94%. - Continue inhalers and PRN albuterol. (8) Chronic pain Comment: - Reports pain in back and hips, but less abdominal pain at site of hematoma. - Continue scheduled Oxycodone and PRN added. (9) Complicated grief Comment: - Complicated grief due to of son 2 years ago. Occasionally sees son out of corner of his eye. Also happened after of brothers. Exacerbated in hospital likely due to unfamiliar surroundings. - Social work consult. Could benefit from outpatient counseling. (10) Depression Comment: - Continue escitalopram and duloxetine. (11) Obstructive sleep apnea on CPAP Comment: - Non-compliant with CPAP, intermittent chronic O2. Concern for chronic respiratory failure. Encouraged pt to be compliant with CPAP - at this time he agrees. Refer to Pulmonology as outpt (12) DVT prophylaxis Comment: - SCDs in setting of bleeding. (13) Full code status Comment: Status and Disposition: Inpatient. Will need subacute rehab, waiting for bed placement. PT/OT
[2017-09-07] MEDS: Lactobacillus Acidophilus* 1 TAB PO SCH ×2 (07:53→20:29)
[2017-09-07] MEDS: Metoprolol Succinate XL TAB* 25 MG PO SCH (07:53)
[2017-09-07] MEDS: DULoxetine DR CAP* 30 MG CAP.DR PO SCH (07:53)
[2017-09-07] MEDS: Omeprazole CAP* 20 MG PO SCH ×2 (07:53→16:48)
[2017-09-07] MEDS: CMC:Escitalopram (NF) 10 MG TAB PO SCH ×2 (07:53→20:29)
[2017-09-07] MEDS: Multivitamins/Minerals TAB PO SCH (07:53)
[2017-09-07] MEDS: oxyCODONE SR TAB(*) 10 MG TAB.SR PO SCH ×3 (07:54→21:05)
[2017-09-07] MEDS: Lidocaine 2% JELLY* 6 ML JELLY TOPICAL SCH ×3 (08:11→21:27)
[2017-09-07] MEDS: Mometasone/Formoter 200/5 MDI INH SCH ×2 (08:22→21:49)
[2017-09-07 12:54] LABS: Urine Appearance Cloudy; Urine Blood 1+ (Negative); Urine Color Yellow; Urine Ketones Negative (Negative); Urine Protein Negative (Negative); Urine Specific Gravity 1.016 (1.010-1.030); Urine Urobilinogen Positive (Negative)
[2017-09-08] MEDS: Acetaminophen TAB* 325 MG PO PRN (02:24)
[2017-09-08] MEDS: Mometasone/Formoter 200/5 MDI INH SCH ×2 (07:36→21:05)
[2017-09-08] MEDS: Multivitamins/Minerals TAB PO SCH (09:33)
[2017-09-08] MEDS: CMC:Escitalopram (NF) 10 MG TAB PO SCH ×2 (09:33→20:55)
[2017-09-08] MEDS: DULoxetine DR CAP* 30 MG CAP.DR PO SCH (09:33)
[2017-09-08] MEDS: Lactobacillus Acidophilus* 1 TAB PO SCH ×2 (09:33→20:55)
[2017-09-08] MEDS: Lidocaine 2% JELLY* 6 ML JELLY TOPICAL SCH ×3 (09:33→20:59)
[2017-09-08] MEDS: Omeprazole CAP* 20 MG PO SCH ×2 (09:33→16:13)
[2017-09-08] MEDS: Metoprolol Succinate XL TAB* 25 MG PO SCH (09:33)
[2017-09-08] MEDS: oxyCODONE SR TAB(*) 10 MG TAB.SR PO SCH ×2 (09:35→20:54)
[2017-09-08] MEDS ORDERED: Ondansetron INJ* 2 MG/ML VIAL IV PRN (11:09)
[2017-09-08] MEDS: Ondansetron 40 MG VIAL* 2 MG/ML 20 ML VIAL IV PRN (11:37)
--- NOTE | 2017-09-08 14:37 | PN ---
Subjective Date of Service: 09/08/17 Interval History: Patient wear his Cpap more frequently stating "I am trying to be better". Per nursing staff and he continues to refuse it frequently. Reports his pain is currently controlled. No fevers or chills. Has slept in the recliner the last few nights because it is "more comfortable". Denies SOB, cough. Family History: Unchanged from Admission Social History: Unchanged from Admission Past Medical History: Unchanged from Admission Objective Active Medications: Acetaminophen (Tylenol Tab*) 650 mg PO Q6H PRN PRN Reason: FEVER/PAIN Last Admin: 09/08/17 02:24 Dose: 650 mg Albuterol (Ventolin 2.5 Mg/3 Ml Neb.Damaris*) 2.5 mg INH Q4H PRN PRN Reason: SHORTNESS OF BREATH Last Admin: 09/04/17 04:59 Dose: 2.5 mg Albuterol (Ventolin Hfa Inhaler*) 2 puff INH Q4H PRN PRN Reason: SHORTNESS OF BREATH Last Admin: 09/03/17 08:28 Dose: 2 puff Duloxetine HCl (Cymbalta Cap*) 30 mg PO QAM [facility] Last Admin: 09/08/17 09:33 Dose: 30 mg Escitalopram Oxalate (Lexapro (Nf)) 20 mg PO BID [facility] Last Admin: 09/08/17 09:33 Dose: 20 mg Lactobacillus Rhamnosus (Lactobacillus Acidophilus*) 1 tab PO BID [facility] Last Admin: 09/08/17 09:33 Dose: 1 tab Lidocaine HCl (Lidocaine 2% Jelly*) 1 applic TOPICAL TID [facility] Last Admin: 09/08/17 13:56 Dose: 1 applic Metoprolol Succinate (Toprol Xl Tab*) 50 mg PO DAILY [facility] Last Admin: 09/08/17 09:33 Dose: 50 mg Mometasone Furoate/Formoterol Fumar (Dulera 200/5 Mdi*) 2 puff INH BID [facility] Last Admin: 09/08/17 07:36 Dose: 2 puff Multivitamins/Minerals (Theragran/Minerals Tab*) 1 tab PO DAILY [facility] Last Admin: 09/08/17 09:33 Dose: 1 tab Glycerin Liquid (Suppository) 1 dose DE Q24H PRN PRN Reason: CONSTIPATION Last Admin: 09/06/17 15:35 Dose: 1 dose Omeprazole (Prilosec Cap*) 20 mg PO BID@0730,1630 [facility] Last Admin: 09/08/17 09:33 Dose: 20 mg Ondansetron HCl (Zofran 40 Mg Vial*) 4 mg IV Q4H PRN PRN Reason: nausea Last Admin: 09/08/17 11:37 Dose: 4 mg Oxycodone HCl (Oxycontin(*)) 10 mg PO BID@30,1930 [facility] Last Admin: 09/08/17 09:35 Dose: 10 mg Polyethylene Glycol/Electrolytes (Miralax*) 17 gm PO DAILY PRN PRN Reason: CONSTIPATION Last Admin: 09/06/17 12:48 Dose: 17 gm Vital Signs - 8 hr 09/08/17 09/08/17 09/08/17 07:27 08:00 09:35 Temperature 98.6 F Pulse Rate 76 Respiratory 23 16 18 Rate Blood Pressure 149/65 (mmHg) O2 Sat by Pulse 100 Oximetry 09/08/17 09/08/17 11:04 11:36 Temperature 98.3 F Pulse Rate 81 Respiratory 24 16 Rate Blood Pressure 122/58 (mmHg) O2 Sat by Pulse 99 Oximetry Oxygen Devices in Use Now: Nasal Cannula Appearance: obese male laying in a recliner resting with eyes close - awakes easliy to voice. A+O in NAD Eyes: No Scleral Icterus, PERRLA Ears/Nose/Mouth/Throat: Mucous Membranes Moist Respiratory: Symmetrical Chest Expansion and Respiratory Effort, Clear to Auscultation Cardiovascular: NL Sounds; No Murmurs; No JVD, RRR, - - trcae LE edema b/l Abdominal: NL Sounds; No Tenderness; No Distention, - - obese Extremities: No Clubbing, Cyanosis Skin: - - larger right lower abdomen right flank area of eccymosis in different stages of healing (stable) Neurological: Alert and Oriented x 3, NL Muscle Strength and Tone Lines/Tubes/Other Access: Clean, Dry and Intact Peripheral IV Nutrition: Taking PO's Result Diagrams: 09/07/17 06:19 09/07/17 06:19 Microbiology and Other Data: . Assess/Plan/Problems-Billing Assessment: Mr. Sethi is a 72yo male with a PMH for CAD, COPD, CVA, dizziness likely due to BPPV who presented after a fall due to dizziness with abdominal trauma and severe blood loss anemia, now with SOB and pulmonary edema after fluid resuscitation. - Patient Problems (1) Acute blood loss anemia Comment: - Hgb stable at 9.2 after 1 unit PRBC. Continue to monitor HH - Secondary to abdominal hematoma from mechanical fall precipitated by dizziness and is weak at baseline (2) Pulmonary edema Comment: - Resolved with lasix and bipap. - Acute diastolic CHF secondary to IVF and PRBCs on arrival for hypotension and acute blood loss anemia. - ECHO EF 55% with diastolic dysfunction - Daily Weights (3) Dizziness Comment: - Resolved. Currently denies dizziness - BPPV by description. No nystagmus. No signs of CVA. Would possibly benefit from vestibular PT. - hemoglobin A1c (4.8) and vitamin B12 (560), not contributory to peripheral neuropathy causing tingling and dizziness. (4) Altered mental status Comment: - Intermittent confusion, improving. Suspect secondary to narcotics. Narcotics decreased from home dosage of 30 mg BID to 20mg BID then decreased to 10 mg BID 09/07 - so far tolerating well. - Repeat CT brain negative 09/04. - EEG, showing cerebral dysfunction but no epileptiform discharges noted. (5) Recurrent falls Comment: - Patient reports frequent falls the last 6 months. Hx of left rib fx (appear to be healing on imaging) PT/OT. will require subacute rehab (6) CAD (coronary artery disease) Comment: - Minimal atherosclerosis on previous cath. No other known history of CAD. - Hold ASA, continue BB. (7) COPD (chronic obstructive pulmonary disease) Comment: - No evidence of exacerbation - Now on 3L NC - D/C oxygen at rest with goal of O2 sat 90-94%. - Continue inhalers and PRN albuterol. - Referral to Pulm as outpt (8) Chronic pain Comment: - Reports pain in back and hips, but less abdominal pain at site of hematoma. - Continue scheduled Oxycodone and PRN added. (9) Complicated grief Comment: - Complicated grief due to of son 2 years ago. Occasionally sees son out of corner of his eye. Also happened after of brothers. Exacerbated in hospital likely due to unfamiliar surroundings. - Social work consult. Could benefit from outpatient counseling. (10) Depression Comment: - Continue escitalopram and duloxetine. (11) Obstructive sleep apnea on CPAP Comment: - Non-compliant with CPAP, intermittent chronic O2. Concern for chronic respiratory failure. Encouraged pt to be compliant with CPAP - at this time he agrees. Refer to Pulmonology as outpt (12) DVT prophylaxis Comment: - SCDs in setting of bleeding. (13) Full code status Comment: Status and Disposition: Inpatient. Will need subacute rehab, waiting for bed placement. PT/OT
[2017-09-09 06:42] LABS: ABS Basophils 0 10^3/ul (0-0.2); ABS Eosinophils 0.7 10^3/ul (0-0.6); ABS Lymphocytes 2.1 10^3/ul (1.0-4.8); ABS Monocytes 1.3 10^3/ul (0-0.8); ABS Neutrophils 6.3 10^3/ul (1.5-7.7); ABS Nucleated RBC 0 10^3/ul; Eosinophil % 6.7 % (0-6); Hematocrit 27 % (42-52); Hemoglobin 9.2 g/dl (14.0-18.0); Lymphocyte % 20.1 % (25-47); Mean Corpuscular HGB Conc 34 g/dl (31-36); Mean Corpuscular Hemoglobin 32 pg (27-31); Mean Corpuscular Volume 96 fL (80-94); Mean Platelet Volume 7.4 um3 (7.4-10.4); Nucleated Red Blood Cells % 0.1; Platelet Count 289 10^3/ul (150-450); Red Blood Count 2.83 10^6/ul (4.0-5.4); Red Cell Distribution Width 14 % (10.5-15); White Blood Count 10.4 10^3/ul (3.5-10.8)
[2017-09-09 06:59] LABS: EGFR Non-African American 145.2 (>60)
[2017-09-09] MEDS: Omeprazole CAP* 20 MG PO SCH ×2 (08:00→15:06)
[2017-09-09] MEDS: oxyCODONE SR TAB(*) 10 MG TAB.SR PO SCH ×2 (08:00→19:55)
[2017-09-09] MEDS: Mometasone/Formoter 200/5 MDI INH SCH ×2 (08:16→20:33)
--- NOTE | 2017-09-09 09:31 | PN ---
Subjective Date of Service: 09/09/17 Interval History: . Patient reports he continues to have "severe pain" in his right side where he fell. He also reports low back pain which he has at his baseline, he reports it is about the same as at home. He is much more awake today staying awake during conversation. He denies SOB, CP. reports appetite is improving. He reports overall he feels depressed that his son a few years ago and also feels frustrated with his chronic illnesses. He reports he did see a grief counselor but it wasn't helpful as she talked about herself mostly. He reports he has a good relationship with his and other children. He denies suicidal ideation. He states he has hope that his health can improved. Family History: Unchanged from Admission Social History: Unchanged from Admission Past Medical History: Unchanged from Admission Objective Active Medications: Acetaminophen (Tylenol Tab*) 650 mg PO Q6H PRN PRN Reason: FEVER/PAIN Last Admin: 09/08/17 02:24 Dose: 650 mg Albuterol (Ventolin 2.5 Mg/3 Ml Neb.Damaris*) 2.5 mg INH Q4H PRN PRN Reason: SHORTNESS OF BREATH Last Admin: 09/04/17 04:59 Dose: 2.5 mg Albuterol (Ventolin Hfa Inhaler*) 2 puff INH Q4H PRN PRN Reason: SHORTNESS OF BREATH Last Admin: 09/03/17 08:28 Dose: 2 puff Duloxetine HCl (Cymbalta Cap*) 30 mg PO QAM [facility] Last Admin: 09/08/17 09:33 Dose: 30 mg Escitalopram Oxalate (Lexapro (Nf)) 20 mg PO BID [facility] Last Admin: 09/08/17 20:55 Dose: 20 mg Lactobacillus Rhamnosus (Lactobacillus Acidophilus*) 1 tab PO BID [facility] Last Admin: 09/08/17 20:55 Dose: 1 tab Lidocaine HCl (Lidocaine 2% Jelly*) 1 applic TOPICAL TID [facility] Last Admin: 09/08/17 20:59 Dose: 1 applic Metoprolol Succinate (Toprol Xl Tab*) 50 mg PO DAILY [facility] Last Admin: 09/08/17 09:33 Dose: 50 mg Mometasone Furoate/Formoterol Fumar (Dulera 200/5 Mdi*) 2 puff INH BID [facility] Last Admin: 09/09/17 08:16 Dose: 2 puff Multivitamins/Minerals (Theragran/Minerals Tab*) 1 tab PO DAILY [facility] Last Admin: 09/08/17 09:33 Dose: 1 tab Glycerin Liquid (Suppository) 1 dose [place] Q24H PRN PRN Reason: CONSTIPATION Last Admin: 09/06/17 15:35 Dose: 1 dose Omeprazole (Prilosec Cap*) 20 mg PO BID@0730,1630 [facility] Last Admin: 09/09/17 08:00 Dose: 20 mg Ondansetron HCl (Zofran 40 Mg Vial*) 4 mg IV Q4H PRN PRN Reason: nausea Last Admin: 09/08/17 11:37 Dose: 4 mg Oxycodone HCl (Oxycontin(*)) 10 mg PO BID@0730,1930 [facility] Last Admin: 09/09/17 08:00 Dose: 10 mg Polyethylene Glycol/Electrolytes (Miralax*) 17 gm PO DAILY PRN PRN Reason: CONSTIPATION Last Admin: 09/06/17 12:48 Dose: 17 gm Vital Signs - 8 hr 09/09/17 09/09/17 09/09/17 04:36 06:56 08:00 Temperature 98.1 F Pulse Rate 78 75 Respiratory 16 16 20 Rate Blood Pressure 132/53 133/51 (mmHg) O2 Sat by Pulse 99 99 Oximetry 09/09/17 09/09/17 08:17 08:52 Temperature Pulse Rate 72 Respiratory 14 14 Rate Blood Pressure (mmHg) O2 Sat by Pulse 96 Oximetry Oxygen Devices in Use Now: Nasal Cannula Appearance: 77 yo chroncially ill appearing male sitting up in bed in A+Ox3 in NAD Eyes: No Scleral Icterus, PERRLA Ears/Nose/Mouth/Throat: Mucous Membranes Moist Respiratory: Symmetrical Chest Expansion and Respiratory Effort, Clear to Auscultation Cardiovascular: NL Sounds; No Murmurs; No JVD, RRR, No Edema Abdominal: NL Sounds; No Tenderness; No Distention, - - obese - right lateral large area of eccymosis in different stages of healing - color green/yellow/ purple - mild tenderness on palpation. Extremities: No Edema, No Clubbing, Cyanosis, - Neurological: Alert and Oriented x 3, NL Muscle Strength and Tone Lines/Tubes/Other Access: Clean, Dry and Intact Peripheral IV Nutrition: Taking PO's Result Diagrams: 09/09/17 05:54 09/09/17 05:54 Microbiology and Other Data: . Assess/Plan/Problems-Billing Assessment: Mr. Sethi is a 72yo male with a PMH for CAD, COPD, CVA, dizziness likely due to BPPV who presented after a fall due to dizziness with abdominal trauma and severe blood loss anemia, now with SOB and pulmonary edema after fluid resuscitation. - Patient Problems (1) Acute blood loss anemia Comment: - Hgb stable after 1 unit PRBC. Continue to monitor HH - Secondary to abdominal hematoma from mechanical fall precipitated by dizziness and is weak at baseline. (2) Trauma Comment: - secondary to mechanical fall/weakness suffering a large right sided (abdomen/ flank) hematoma. CT on admission showing no fx or organ damage. Due to continued report of severe pain will repeat CT scan today. HH stable. (3) Pulmonary edema Comment: - Resolved with lasix and bipap. - Acute diastolic CHF secondary to IVF and PRBCs on arrival for hypotension and acute blood loss anemia. - ECHO EF 55% with diastolic dysfunction - Daily Weights (4) Dizziness Comment: - Resolved. Currently denies dizziness - BPPV by description. No nystagmus. No signs of CVA. Would possibly benefit from vestibular PT. - hemoglobin A1c (4.8) and vitamin B12 (560), not contributory to peripheral neuropathy causing tingling and dizziness. (5) Altered mental status Comment: - Intermittent confusion, improving - much better today. Suspect secondary to narcotics. Narcotics decreased from home dosage of 30 mg BID to 20mg BID then decreased to 10 mg BID 09/07 - so far tolerating well. - Repeat CT brain negative 09/04. - EEG, showing cerebral dysfunction but no epileptiform discharges noted. (6) Recurrent falls Comment: - Patient reports frequent falls the last 6 months. Hx of left rib fx (appear to be healing on imaging) PT/OT. will require subacute rehab (7) CAD (coronary artery disease) Comment: - Minimal atherosclerosis on previous cath. No other known history of CAD. - Hold ASA, continue BB. (8) COPD (chronic obstructive pulmonary disease) Comment: - No evidence of exacerbation - Now on 3L NC - D/C oxygen at rest with goal of O2 sat 90-94%. - Continue inhalers and PRN albuterol. - Referral to Pulm as outpt (9) Chronic pain Comment: - Reports pain in back and hips at baseline - Continue scheduled Oxycodone at decreased dose and PRN added. - start Lidocaine patch (10) Complicated grief Comment: - Complicated grief due to of son 2 years ago. Occasionally sees son out of corner of his eye. Also happened after of brothers. Exacerbated in hospital likely due to unfamiliar surroundings. - Social work consult. Could benefit from outpatient counseling. (11) Depression Comment: - Continue escitalopram and duloxetine. (12) Obstructive sleep apnea on CPAP Comment: - Non-compliant with CPAP but has improved compliajce throughout hospitalization. intermittent chronic home O2. Concern for chronic respiratory failure. Encouraged pt to be compliant with CPAP - at this time he agrees. Refer to Pulmonology as outpt (13) DVT prophylaxis Comment: - SCDs in setting of bleeding. (14) Full code status Comment: Status and Disposition: Inpatient. Will need subacute rehab, waiting for bed placement. PT/OT
[2017-09-09] MEDS: DULoxetine DR CAP* 30 MG CAP.DR PO SCH (09:32)
[2017-09-09] MEDS: Lactobacillus Acidophilus* 1 TAB PO SCH ×2 (09:32→19:55)
[2017-09-09] MEDS: Acetaminophen TAB* 325 MG PO PRN ×2 (09:32→19:54)
[2017-09-09] MEDS: Metoprolol Succinate XL TAB* 25 MG PO SCH (09:33)
[2017-09-09] MEDS: Multivitamins/Minerals TAB PO SCH (09:33)
[2017-09-09] MEDS: CMC:Escitalopram (NF) 10 MG TAB PO SCH ×2 (09:33→19:55)
[2017-09-09] MEDS: Ondansetron 40 MG VIAL* 2 MG/ML 20 ML VIAL IV PRN ×2 (11:32→21:57)
[2017-09-09] MEDS: Lidocaine 2% JELLY* 6 ML JELLY TOPICAL SCH (11:40)
--- NOTE | 2017-09-09 14:26 | RAD ---
INDICATION: Persistent right-sided abdominal and flank pain after trauma. Relevant surgical history includes bilateral hip prostheses. Cholecystectomy and "stents in the left arm". COMPARISON: CT exam dated August 31, 2017 that only partially visualized the subcutaneous hematoma. TECHNIQUE: Multidetector CT images of the chest, abdomen and pelvis were obtained from the lung apices to the ischial tuberosities without intravenous contrast Image quality is degraded by streak artifact created by the arms being overlying the chest and streak artifact contributed by the bilateral hip prostheses. CHEST: Partially visualized overlying the left upper extremity are multiple metallic coils. The lungs are clear. There are no large pleural effusions. There is no mediastinal or hilar lymphadenopathy. The heart and major vascular structures are grossly normal in appearance. ABDOMEN & PELVIS: Overlying the right flank there is a subcutaneous hyperattenuating collection measuring up to 8.2 x 17.2 cm in the axial plane and up to 12.9 cm and greatest cephalocaudal projection. This hematoma extends from the lateral right abdomen and wraps around the flank extending to the superior most lateral portion of the right buttock. On the previous CT examination it measured a maximum AP dimension of 16.4 cm but was incompletely visualized. The liver, spleen, pancreas and adrenal glands are grossly normal in appearance. The gallbladder is surgically absent. The kidneys are normal in appearance without focal mass, calcification or signs of hydronephrosis. A Osorio catheter is seen in the urinary bladder. Evaluation of the gastrointestinal tract is limited without oral contrast. The small and large bowel are not distended. There is no gross retroperitoneal or mesenteric lymphadenopathy. The pelvic viscera is normal in appearance. The mildly calcified abdominal aorta and iliac arteries are normal in course and diameter. Bilateral hip prostheses appear to be anatomically aligned. The hip prostheses create streak artifact limiting evaluation of structures at the hip level. IMPRESSION: 1. There is a large subcutaneous hematoma overlying the right lateral abdominal wall, right flank and extending to the superior lateral portion of the right buttock. This hematoma was incompletely imaged on the prior CT examination so determining change in size is limited but it does appear slightly larger in the AP projection. Without injection of intravenous contrast it is difficult to determine if there is active bleeding occurring. 2. Vascular embolization coils are noted in the left upper extremity (the requisition reports "stents" in the upper extremity). 3. There are additional chronic, degenerative and iatrogenic findings described in the body the report.
[2017-09-09] MEDS: Lidocaine PATCH 5%* 1 PATCH TRANSDERM SCH (15:06)
[2017-09-09] MEDS: Lidocaine Patch REMOVE* 1 NOTE MISC SCH (22:04)
[2017-09-09] MEDS ORDERED: oxyCODONE SR TAB(*) 10 MG TAB.SR PO ONE (22:36)
[2017-09-09] MEDS ORDERED: oxyCODONE SR TAB(*) 20 MG TAB.SR PO ONE (22:36)
--- NOTE | 2017-09-09 22:37 | PN ---
Progress Note - Progress Note Date of Service: 09/09/17 Note: Patient c/o intractable pain. RN also concern for possible withdrawal. Tapering his oxycodone. Will go back up to 20 mg ER BID. May need a slower taper.
[2017-09-10] MEDS: Omeprazole CAP* 20 MG PO SCH ×2 (06:53→15:29)
[2017-09-10] MEDS: Mometasone/Formoter 200/5 MDI INH SCH ×2 (07:30→20:14)
[2017-09-10] MEDS: Ondansetron 40 MG VIAL* 2 MG/ML 20 ML VIAL IV PRN ×2 (08:13→19:45)
[2017-09-10] MEDS: Multivitamins/Minerals TAB PO SCH (08:24)
[2017-09-10] MEDS: oxyCODONE SR TAB(*) 20 MG TAB.SR PO SCH ×2 (08:24→21:09)
[2017-09-10] MEDS: Metoprolol Succinate XL TAB* 25 MG PO SCH (08:24)
[2017-09-10] MEDS: CMC:Escitalopram (NF) 10 MG TAB PO SCH ×2 (08:24→21:10)
[2017-09-10] MEDS: DULoxetine DR CAP* 30 MG CAP.DR PO SCH (08:24)
[2017-09-10] MEDS: Lactobacillus Acidophilus* 1 TAB PO SCH ×2 (08:24→21:09)
[2017-09-10] MEDS: Lidocaine PATCH 5%* 1 PATCH TRANSDERM SCH (08:25)
[2017-09-10] MEDS ORDERED: NS 0.9% 250 ML* 250 ML IV ONE (11:58)
[2017-09-10] MEDS: Acetaminophen TAB* 325 MG PO PRN ×2 (15:29→21:10)
--- NOTE | 2017-09-10 16:21 | PN ---
Subjective Date of Service: 09/10/17 Interval History: Patient and reporting they dont want rehab and want to go home today. We discussed at length that the patient has improved with his mobility but today continued to be on a gait belt with PT and I am concerned he is still too weak for discharge and highly recommend DC to subacute rehab. At this point they are refusing subacute rehab and they think he will do well going home tomorrow with home PT 3xs/a week. He states he will plan to ambulate tonight with his walker and in the morning and hopes to be completely independent to go home. He feels better with increase of oxycodone (still less than home dose) reports his tremors resolved and thinks he was withdrawing. He has been using the cpap more consistently and admits he feels more awake., Family History: Unchanged from Admission Social History: Unchanged from Admission Past Medical History: Unchanged from Admission Objective Active Medications: Acetaminophen (Tylenol Tab*) 650 mg PO Q6H PRN PRN Reason: FEVER/PAIN Last Admin: 09/10/17 15:29 Dose: 650 mg Albuterol (Ventolin 2.5 Mg/3 Ml Neb.Damaris*) 2.5 mg INH Q4H PRN PRN Reason: SHORTNESS OF BREATH Last Admin: 09/04/17 04:59 Dose: 2.5 mg Albuterol (Ventolin Hfa Inhaler*) 2 puff INH Q4H PRN PRN Reason: SHORTNESS OF BREATH Last Admin: 09/03/17 08:28 Dose: 2 puff Duloxetine HCl (Cymbalta Cap*) 30 mg PO QAM [facility] Last Admin: 09/10/17 08:24 Dose: 30 mg Escitalopram Oxalate (Lexapro (Nf)) 20 mg PO BID [facility] Last Admin: 09/10/17 08:24 Dose: 20 mg Lactobacillus Rhamnosus (Lactobacillus Acidophilus*) 1 tab PO BID [facility] Last Admin: 09/10/17 08:24 Dose: 1 tab Lidocaine (Lidoderm 5% Patch*) 1 patch TRANSDERM DAILY [facility] Last Admin: 09/10/17 08:25 Dose: 1 patch Metoprolol Succinate (Toprol Xl Tab*) 50 mg PO DAILY [facility] Last Admin: 09/10/17 08:24 Dose: 50 mg Mometasone Furoate/Formoterol Fumar (Dulera 200/5 Mdi*) 2 puff INH BID [facility] Last Admin: 09/10/17 07:30 Dose: 2 puff Multivitamins/Minerals (Theragran/Minerals Tab*) 1 tab PO DAILY [facility] Last Admin: 09/10/17 08:24 Dose: 1 tab Glycerin Liquid (Suppository) 1 dose CA Q24H PRN PRN Reason: CONSTIPATION Last Admin: 09/06/17 15:35 Dose: 1 dose Omeprazole (Prilosec Cap*) 20 mg PO BID@0730,1630 [facility] Last Admin: 09/10/17 15:29 Dose: 20 mg Ondansetron HCl (Zofran 40 Mg Vial*) 4 mg IV Q4H PRN PRN Reason: nausea Last Admin: 09/10/17 08:13 Dose: 4 mg Oxycodone HCl (Oxycontin(*)) 20 mg PO Q12HR [facility] Last Admin: 09/10/17 08:24 Dose: 20 mg Pharmacy Profile Note (Lidocaine Patch Remove*) 1 note N/A 2100 [facility] Last Admin: 09/09/17 22:04 Dose: 1 note Polyethylene Glycol/Electrolytes (Miralax*) 17 gm PO DAILY PRN PRN Reason: CONSTIPATION Last Admin: 09/06/17 12:48 Dose: 17 gm Vital Signs - 8 hr 09/10/17 09/10/17 09/10/17 08:24 09:17 11:02 Temperature Pulse Rate Respiratory 20 20 16 Rate Blood Pressure (mmHg) O2 Sat by Pulse Oximetry 09/10/17 09/10/17 11:06 15:45 Temperature 98.3 F 98.7 F Pulse Rate 73 69 Respiratory 19 16 Rate Blood Pressure 116/65 117/54 (mmHg) O2 Sat by Pulse 100 100 Oximetry Oxygen Devices in Use Now: Nasal Cannula Appearance: A+Ox3 obese male sitting up in a chair in NAD Eyes: No Scleral Icterus, PERRLA Ears/Nose/Mouth/Throat: Mucous Membranes Moist Respiratory: Clear to Auscultation Cardiovascular: NL Sounds; No Murmurs; No JVD, RRR Abdominal: NL Sounds; No Tenderness; No Distention, - - obese. right lateral abdomen/flank large area of ecchymosis in different stages of healing. Extremities: No Clubbing, Cyanosis Neurological: Alert and Oriented x 3, NL Sensation Lines/Tubes/Other Access: Clean, Dry and Intact Peripheral IV Nutrition: Taking PO's Result Diagrams: 09/09/17 05:54 09/09/17 05:54 Microbiology and Other Data: . Assess/Plan/Problems-Billing Assessment: Mr. Sethi is a 72yo male with a PMH for CAD, COPD, CVA, dizziness likely due to BPPV who presented after a fall due to dizziness with abdominal trauma and severe blood loss anemia, now with SOB and pulmonary edema after fluid resuscitation. - Patient Problems (1) Acute blood loss anemia Comment: - Hgb stable after 1 unit PRBC. Continue to monitor HH - Secondary to abdominal hematoma from mechanical fall precipitated by dizziness and is weak at baseline. (2) Trauma Comment: - secondary to mechanical fall/weakness suffering a large right sided (abdomen/ flank) hematoma. CT on admission showing no fx or organ damage. Repeat CT scan stable. - HH stable. (3) Pulmonary edema Comment: - Resolved with lasix and bipap. - Acute diastolic CHF secondary to IVF and PRBCs on arrival for hypotension and acute blood loss anemia. - ECHO EF 55% with diastolic dysfunction - Daily Weights (4) Dizziness Comment: - Resolved. Currently denies dizziness - BPPV by description. No nystagmus. No signs of CVA. Would possibly benefit from vestibular PT. - hemoglobin A1c (4.8) and vitamin B12 (560), not contributory to peripheral neuropathy causing tingling and dizziness. (5) Altered mental status Comment: - Intermittent confusion, improving daily. Suspect secondary to narcotics. Narcotics decreased from home dosage of 30 mg BID to 20mg BID then decreased to 10 mg BID - increased back to 20 mg BID 09/09 d/t pain and tremors (now improved) - Repeat CT brain negative 09/04. - EEG, showing cerebral dysfunction but no epileptiform discharges noted. (6) Recurrent falls Comment: - Patient reports frequent falls the last 6 months. Hx of left rib fx (appear to be healing on imaging) PT/OT. Recommending rehab for pt but is refusing at this time. (7) CAD (coronary artery disease) Comment: - Minimal atherosclerosis on previous cath. No other known history of CAD. - Hold ASA, continue BB. (8) COPD (chronic obstructive pulmonary disease) Comment: - No evidence of exacerbation - Now on 3L NC - D/C oxygen at rest with goal of O2 sat 90-94%. - Continue inhalers and PRN albuterol. - Referral to Pulm as outpt (9) Chronic pain Comment: - Reports pain in back and hips at baseline - Continue scheduled Oxycodone at decreased dose and PRN added. - start Lidocaine patch (10) Complicated grief Comment: - Complicated grief due to of son 2 years ago. Occasionally sees son out of corner of his eye. Also happened after of brothers. Exacerbated in hospital likely due to unfamiliar surroundings. - Social work consult. Could benefit from outpatient counseling. (11) Depression Comment: - Continue escitalopram and duloxetine. (12) Obstructive sleep apnea on CPAP Comment: - Non-compliant with CPAP but has improved compliance throughout hospitalization. intermittent chronic home O2. Concern for chronic respiratory failure. Refer to Pulmonology as outpt Will require new Cpap on discharge (13) DVT prophylaxis Comment: - SCDs in setting of hematoma (14) Full code status Comment: Status and Disposition: Inpatient. Pt is refusing rehab at this point - DC home when stable, possibly tomorrow.
[2017-09-10] MEDS: Lidocaine Patch REMOVE* 1 NOTE MISC SCH (22:52)
[2017-09-11 06:21] LABS: ABS Basophils 0 10^3/ul (0-0.2); ABS Eosinophils 0.8 10^3/ul (0-0.6); ABS Lymphocytes 2.2 10^3/ul (1.0-4.8); ABS Monocytes 1.1 10^3/ul (0-0.8); ABS Neutrophils 5.7 10^3/ul (1.5-7.7); ABS Nucleated RBC 0 10^3/ul; Eosinophil % 8.5 % (0-6); Hematocrit 29 % (42-52); Hemoglobin 9.7 g/dl (14.0-18.0); Lymphocyte % 22.1 % (25-47); Mean Corpuscular HGB Conc 33 g/dl (31-36); Mean Corpuscular Hemoglobin 32 pg (27-31); Mean Corpuscular Volume 96 fL (80-94); Mean Platelet Volume 7.1 um3 (7.4-10.4); Nucleated Red Blood Cells % 0; Platelet Count 301 10^3/ul (150-450); Red Blood Count 3.03 10^6/ul (4.00-5.40); Red Cell Distribution Width 15 % (10.5-15); White Blood Count 9.8 10^3/ul (3.5-10.8)
[2017-09-11 06:31] LABS: EGFR Non-African American 145.2 (>60)
[2017-09-11] MEDS: Ondansetron 40 MG VIAL* 2 MG/ML 20 ML VIAL IV PRN (06:39)
[2017-09-11] MEDS: DULoxetine DR CAP* 30 MG CAP.DR PO SCH (08:08)
[2017-09-11] MEDS: CMC:Escitalopram (NF) 10 MG TAB PO SCH (08:08)
[2017-09-11] MEDS: Multivitamins/Minerals TAB PO SCH (08:08)
[2017-09-11] MEDS: Lactobacillus Acidophilus* 1 TAB PO SCH (08:08)
[2017-09-11] MEDS: oxyCODONE SR TAB(*) 20 MG TAB.SR PO SCH (08:08)
[2017-09-11] MEDS: Omeprazole CAP* 20 MG PO SCH (08:08)
[2017-09-11] MEDS: Metoprolol Succinate XL TAB* 25 MG PO SCH (08:08)
[2017-09-11] MEDS: Lidocaine PATCH 5%* 1 PATCH TRANSDERM SCH (08:09)
[2017-09-11] MEDS: Mometasone/Formoter 200/5 MDI INH SCH ×2 (08:29→19:52)
[2017-09-11] MEDS: Acetaminophen TAB* 325 MG PO PRN (14:43)
[2017-09-11 15:51] VITALS: BP 123/65
--- NOTE | 2017-09-12 09:42 | DS ---
AMENDED REPORT NOW INCLUDES COSIGNER DESIGNATION - ESIGNED BEFORE ADJUSTMENT CC: Dr. Paz * DISCHARGE SUMMARY: DATE OF ADMISSION: 08/31/17 DATE OF DISCHARGE: 09/11/17 PRIMARY CARE PHYSICIAN: Dr. Paz. ATTENDING FOR THIS ADMISSION: Dr. Mesa. MY ATTENDING FOR TODAY: Dr. Mesa.* (DICTATED BY SABRINA PINEDA NP) HOSPITAL COURSE: This is a 77-year-old male patient, who carries a history of CVA some years ago, dizziness, difficulty ambulating, frequent falls, depression , and hypertension, who came to the emergency department with complaint of dizziness and falling at home. He was found to have a low hemoglobin and some abdominal pain. He had a CAT scan of the abdomen, which showed a large hematoma in the right abdomen and he continued to be dizzy. The patient was also hypotensive and was initially admitted to the ICU for closer monitoring, as it appeared he was still having active bleeding into the abdomen. The patient was transfused 1 unit of PRBCs, hemoglobin remained stable after that; however, he still was having continued dizziness and weakness and was having trouble ambulating. He also had some issues with pulmonary edema and some decreased level of consciousness, which was secondary to likely polypharmacy, narcotic use and lack of using his CPAP at home. The patient had an echocardiogram at that time, which showed diastolic dysfunction. He was diuresed with Lasix and placed on BiPAP and seemed to respond favorably. The patient's dizziness resolved. He also had some intermittent confusion, his narcotics were decreased ; however, he did appear to be detoxing somewhat from his narcotics, so the dose was adjusted. He is now taking 20 mg of OxyContin 2 times a day and is not lethargic, but still has good pain control. The patient was seen by Physical Therapy, initially stated that the patient should go to rehab; however , after several more days in the hospital and trying to determine his discharge plan, the patient began to function better. Today, he had final evaluation with Physical Therapy, so the patient was safe to go home and his labs remained stable and his at the bedside has agreed continue to take care of him at home as she has been doing up to this point. DISCHARGE DIAGNOSES: 1. Acute blood loss anemia secondary to abdominal trauma and hematoma, now resolved. 2. Trauma secondary to #1. 3. Pulmonary edema, now resolved. 4. Dizziness, resolved. 5. Altered mental status, resolved. 6. Frequent falls, continue rehabilitation at home. 7. History of coronary artery disease, stable. 8. History of chronic obstructive pulmonary disease, off oxygen. 9. History of chronic pain, OxyContin titrated. 10. History of depression and complicated grieving process, the patient at baseline. 11. History of obstructive sleep apnea, on CPAP. We will continue his CPAP at home, may require a new machine. DISCHARGE MEDICATIONS: Include: 1. Tylenol 650 q.6 hours as needed. 2. Albuterol p.r.n. 3. Duloxetine 30 mg daily. 4. Lexapro 20 mg 2 times a day. 5. Probiotic 1 tablet daily. 6. Lidoderm patch, 1 patch daily. 7. Metoprolol succinate 50 mg daily. 8. Dulera 2 puffs 2 times a day. 9. Multivitamins 1 tablet daily. 10. Omeprazole 20 mg 2 times a day. 11. OxyContin 20 mg q.12 hours. 12. Bowel regimen, polyethylene glycol as needed. PHYSICAL EXAM: On day of discharge, vital signs are blood pressure 154/68, heart rate 74, respiratory rate 18, satting at 98% on 2 L nasal cannula. HEENT : The patient is atraumatic, normocephalic. PERRLA with nonicteric sclerae. Neck is supple, nontender. No JVD noted. No carotid bruit auscultated. Cardiovascular: S1, S2 present. No murmurs, gallops, or rubs noted. Rate and rhythm are regular. Lungs are clear bilaterally at the apices with no adventitious breath sounds, mildly diminished at the bases, no wheezing noted. He is moderately over the right abdomen, nondistended. No organomegaly appreciated. There is still remaining large area of ecchymosis and bruising across the abdomen that appears to be healing well. Musculoskeletal: There is no clubbing, no cyanosis, and no edema. He has +2 distal pulses palpable. He ambulates with a walker. Neurologic: He is grossly intact with no focal deficits. Psychiatric: He is appropriate. CONDITION ON DISCHARGE: The patient was discharged in stable condition. DISPOSITION PLANNING: The patient after much discussion with him and his will be discharged to home in the care of his . He can have in-home services with [facility] as needed. He can have a heart-healthy diet as tolerated, ambulation with assistance of a walker, and contact assist with changing positions. Family is able to help provide this level of care for the patient. FOLLOWUPS: The patient was instructed to follow up with his primary care provider, Dr. Paz. He also has [facility] that will be coming out to the house. SABRINA PINEDA, SILK SCREEN PRINTER MACHINE [id number]/CPS #: [id number] DARREN
== END 2017-09-11 16:15 | disposition home health service (06) | DRG 604 ==
LOC: ED 09:17 → ICU 14:08 → SSU 09-02 16:48 → ICU 09-03 14:14 → MED 09-05 11:30
PROVIDERS: ADMIT Internal Medicine; ATTEND Internal Medicine
PROC: 30233N1 Transfusion of Nonautologous Red Blood Cells into Peripheral Vein, Percutaneous Approach (ICD-10-PCS; principal; 2017-09-01)
PROC: 4A00X4Z Measurement of Central Nervous Electrical Activity, External Approach (ICD-10-PCS; 2017-09-04)
PROC: 5A09357 Assistance with Respiratory Ventilation, Less than 24 Consecutive Hours, Continuous Positive Airway Pressure (ICD-10-PCS; 2017-09-10)
DX: S30.1XXA Contusion of abdominal wall, initial encounter (principal); I50.33 Acute on chronic diastolic (congestive) heart failure; D62 Acute posthemorrhagic anemia; G89.29 Other chronic pain; M54.9 Dorsalgia, unspecified; S30.811A Abrasion of abdominal wall, initial encounter; S80.11XA Contusion of right lower leg, initial encounter; I25.10 Atherosclerotic heart disease of native coronary artery without angina pectoris; J44.9 Chronic obstructive pulmonary disease, unspecified; K57.90 Diverticulosis of intestine, part unspecified, without perforation or abscess without bleeding; K21.9 Gastro-esophageal reflux disease without esophagitis; I11.0 Hypertensive heart disease with heart failure; W18.39XA Other fall on same level, initial encounter; M47.816 Spondylosis without myelopathy or radiculopathy, lumbar region; M19.012 Primary osteoarthritis, left shoulder; F32.9 Major depressive disorder, single episode, unspecified; Z96.643 Presence of artificial hip joint, bilateral; I95.9 Hypotension, unspecified; G47.33 Obstructive sleep apnea (adult) (pediatric); R33.9 Retention of urine, unspecified; F43.21 Adjustment disorder with depressed mood; R41.0 Disorientation, unspecified; Z91.041 Radiographic dye allergy status; Z86.73 Personal history of transient ischemic attack (TIA), and cerebral infarction without residual deficits; Z90.49 Acquired absence of other specified parts of digestive tract; Z83.3 Family history of diabetes mellitus; Y92.098 Other place in other non-institutional residence as the place of occurrence of the external cause; Z82.49 Family history of ischemic heart disease and other diseases of the circulatory system; Z99.81 Dependence on supplemental oxygen; Z79.51 Long term (current) use of inhaled steroids; Z91.81 History of falling; R40.0 Somnolence; Z63.4 Disappearance and death of family member
CPT/HCPCS: 36415; 36600; 70450; 71045; 71250; 72125; 72128; 72131; 74176; 80048; 80053; 80076; 81003; 81015; 82140; 82607; 82803; 83036; 83605; 83735; 83880; 84484; 85014; 85018; 85025; 85027; 85610; 85730; 86850; 86900; 86901; 86922; 87040; 87077; 87086; 87186; 87641; 93005; 93306; 94640; 94660; 95816; 99285; A9270-GY; G8978-GP-CM; G8979-GP-CI; G8987-GO-CM; G8988-GO-CK; J0696; J1940; J2060; J2270; J2543; J2597; J3475; J3480; P9040

== ENCOUNTER 2017-11-20 15:47 | Emergency (ER) | payer MEDICARE ==
[2017-11-20 16:53] VITALS: BP 133/106
--- NOTE | 2017-11-20 17:12 | UC ---
Headache HPI - HPI Summary HPI Summary: The pt is a 77 y/o male presenting to c/o a RICCI s/p a fall 2 days ago worsened today. He fell while lifting his walker up a step and impacted his head against a concrete floor. He notes dizziness, nausea, ringing in the ears (chronic), mid-back pain, rib pain, mid-sternal CP, and vision changes. He is concerned about broken ribs. The pt has a follow up appointment with his PCP tomorrow 11/21/2017. - History Of Current Complaint Chief Complaint: UCGeneralIllness Stated Complaint: FELL DOWN Time Seen by Provider: 11/20/17 16:57 Hx Obtained From: Patient, Family/Valve Assembler Onset/Duration: Lasting Days - 2 days, Worse Since - Today Onset Of Symptoms: Sudden - s/p a fall, Still Present Currently Pain Is: Severe Pain Intensity: 9 Pain Scale Used: 0-10 Numeric Location of Headache: Occipital Associated Signs And Symptoms: Positive: Dizziness, Nausea, Visual Changes, Other (Noted In Comments) - ringing in the ears (chronic), rib pain, mid- sternal CP, mid-back pain - Allergies/Home Medications Allergies/Adverse Reactions: Allergies Allergy/AdvReac Type Severity Reaction Status Date / Time Iodinated Contrast- Oral and Allergy Intermediate Rash Verified 11/20/17 16:53 IV Dye Home Medications: Home Medications Amoxicillin PO (*) [Amoxicillin 875 MG (*)] 875 mg PO BID 11/20/17 [History Confirmed 11/20/17] PMH/Surg Hx/FS Hx/Imm Hx Previously Healthy: No Cardiovascular History: Cardiac Disease - CAD Respiratory History: COPD GI/ History: Other - Chronic UTI Other GI/ History: . Neurological History: TIA, CVA - Surgical History Surgical History: Yes Surgery Procedure, Year, and Place: 1998/1999 TOTAL HIP REPLACEMENT BILAT- [facility] – [place]. 2000 CHOLECYSTECTOMY- [facility] [place]. 35 YRS AGO VARICOSE VEINS- [place]. 7 YRS SINUS SURGERY- [facility] [place]. Stents in left arm - Family History Known Family History: Positive: Diabetes - Father Negative: Respiratory Disease, Seizure Disorder - Social History Occupation: Retired Lives: With Family Alcohol Use: None Substance Use Type: None Smoking Status (MU): Never Smoked Tobacco - Immunization History Most Recent Influenza Vaccination: in past Most Recent Pneumonia Vaccination: 2017 Review of Systems Constitutional: Other - Positive: Dizziness Eyes: Other - Positive: vision changes ENT: Other - Positive: ringing in the ears (chronic) Cardiovascular: Chest Pain - Midsternal, Other - Positive: rib pain Gastrointestinal: Nausea Musculoskeletal: Other: - Positive: mid-back pain, Neurological: Headache All Other Systems Reviewed And Are Negative: Yes Physical Exam - Summary Physical Exam Summary: General: well-appearing, no pain distress Skin: warm, color reflects adequate perfusion, dry Head: normal Eyes: EOMI, JET; Complains of dizziness with eye movement;No nystagmus ENT: normal Neck: supple, nontender Respiratory: CTA, breath sounds present Cardiovascular: RRR Abdomen: soft, nontender Bowel: present Musculoskeletal: strength/ROM intact; Tender to palpation in the mid thoracic back and to the L of the thoracic spine Neurological: sensory/motor intact, A&O x3 GCS: 15 Psychological: affect/mood appropriate Triage Information Reviewed: Yes Vital Signs: Initial Vital Signs Temp 97.8 F 11/20/17 16:49 Pulse 76 11/20/17 16:49 Resp 18 11/20/17 16:49 BP 133/106 11/20/17 16:49 Pulse Ox 98 11/20/17 16:49 Vital Signs Reviewed: Yes Diagnostics - Radiology Thoracic Spine CT Radiology Interpretation Completed By: Radiologist - 1. No acute fracture. 2. Other chronic findings, as above. The ED physician has reviewed this radiology report. Chest CT Radiology Interpretation Completed By: Radiologist - IMPRESSION: 1. No acute findings. 2. Other chronic findings, as above. The ED physician has reviewed this radiology report. Cervical Spine CT Radiology Interpretation Completed By: Radiologist - IMPRESSION: Multilevel degenerative disc disease is noted. No fracture is identified. The ED physician has reviewed this radiology report. Brain CT Radiology Interpretation Completed By: Radiologist - IMPRESSION: Chronic ischemic White matter change. Calcifications in the left basal ganglia unchanged from prior exam. Motion artifact degrades the images. Paranasal sinuses are clear. No acute changes are noted. The ED physician has reviewed this radiology report. Re-Evaluation - Re-Evaluation First Eval Re-Evaluation Time: 18:41 Change: Improved Comment: Discussed the CT And X-Ray results with the pt. Headache Course/Dx - Course Course Of Treatment: DISCUSSED X-RAY RESULTS WITH THE PATIENT AND FAMILY. THE DIZZINESS WAS PRESENT PRIOR TO THE RECENT FALL. DISCUSSED IF THERE IS ANY WORSENING, FURTHER IMAGING TO INCLUDE A BRAIN MRI MAY BE NECESSARY. F/U PMD; GO TO ED IF WORSE. - Differential Dx/Diagnosis Provider Diagnoses: HEAD INJURY. RIB INJURY. THORACIC BACK INJURY. DIZZINESS Discharge - Sign-Out/Discharge Documenting (check all that apply): Patient Departure All imaging exams completed and their final reports reviewed: Yes - Discharge Plan Condition: Stable Disposition: HOME Patient Education Materials: Rib Fracture (ED), Vertigo (ED), Head Injury (ED) , Dizziness (ED), Back Pain (ED) Referrals: Brandi MCGINNIS,Royal Patel [Primary Care Provider] - Additional Instructions: FOLLOW UP WITH YOUR DOCTOR. GO TO THE EMERGENCY DEPARTMENT FOR ANY WORSENING OF YOUR CONDITION OR QUESTIONS OR CONCERNS. - Billing Disposition and Condition Condition: STABLE Disposition: Home - Attestation Statements Document Initiated by Brandonibpatel: Yes Documenting Scribe: Rachel Ojeda Provider For Whom Tyree is Documenting (Include Credential): Dr. Ari Veloz MD Scribe Attestation: Rachel Cole scribed for Dr. Ari Veloz MD on 11/20/17 at 1914. Scribe Documentation Reviewed: Yes Provider Attestation: The documentation as recorded by the Rachel benjamin accurately reflects the service I personally performed and the decisions made by , Dr. Ari Veloz MD
[2017-11-20] MEDS ORDERED: Meclizine TAB* 12.5 MG PO ONE (17:13)
--- NOTE | 2017-11-20 17:57 | RAD ---
Indication: Head injury. Fall. CT of the brain was performed without IV contrast. Comparison is made with previous exam dated September 04, 2017. Ventricular structures are midline. No midline shift is noted. The extraction spaces are unremarkable. Motion artifact limits evaluation. There are calcifications in the left basal ganglia which are not changed since September 04, 2017. Periventricular lucency consistent with chronic ischemic White matter change. IMPRESSION: Chronic ischemic White matter change. Calcifications in the left basal ganglia unchanged from prior exam. Motion artifact degrades the images. Paranasal sinuses are clear. No acute changes are noted.
--- NOTE | 2017-11-20 17:59 | RAD ---
Indication: Neck injury after fall. CT of the cervical spine was obtained in the axial plane. Sagittal and coronal reconstructed images were obtained. The skull base demonstrates mastoid air cells to be well aerated. No abnormal fluid is noted. No basilar skull fracture is noted. Degenerative changes of the atlantoaxial joint is noted. The C1 ring is intact. The vertebral bodies appear normal in height. Disc space narrowing at C3-C4, C4-C5, C5-C6 and C6-C7 with dorsal osteophytes are noted. No fracture is noted. Multilevel facet arthropathy is noted. Small lymph nodes are noted along the carotid chain. IMPRESSION: Multilevel degenerative disc disease is noted. No fracture is identified.
--- NOTE | 2017-11-20 18:26 | RAD ---
EXAM: CT Chest Without Intravenous Contrast CLINICAL HISTORY: 77 years old, male; Pain and injury or trauma; Fall; Initial encounter; Blunt trauma (contusions or hematomas); Chest wall pain and pleuordynia; Injury date: 11/18/17; Injury details: Pt has left anterior mid chest pain S/P fall 3 days ago, C/O cough with phlegm and +sob; Patient HX: HX multiple FX ribs from fall 1 year ago; Additional info: Left chest pain S/P fall TECHNIQUE: Axial computed tomography images of the chest without intravenous contrast. All CT scans at this facility use at least one of these dose optimization techniques: automated exposure control; mA and/or kV adjustment per patient size (includes targeted exams where dose is matched to clinical indication); or iterative reconstruction. Coronal and sagittal reformatted images were created and reviewed. COMPARISON: C/A/P WO CT CHEST/ABD/PEL W/O 09/09/2017 11:53 AM FINDINGS: Lungs: Linear scarring in the right lower lobe. Linear scarring in the lingula. Chronic unchanged segmental collapse of the left lower lobe, with decreased volume on the left. Pleural space: Unremarkable. No pneumothorax. No significant effusion. Heart: Mild cardiomegaly. Mild calcifications of the coronary arteries. No significant pericardial effusion. Bones/joints: Multiple old healed bilateral rib fractures. No acute fractures identified. No dislocation. Multilevel degenerative changes of the visualized spine. Soft tissues: Unremarkable. Vasculature: Mild atherosclerotic calcifications of the aorta. No thoracic aortic aneurysm. Lymph nodes: Unremarkable. No enlarged lymph nodes. Gallbladder and bile ducts: The gallbladder is surgically absent. Stomach and bowel: Partially visualized colonic diverticulosis. IMPRESSION: 1. No acute findings. 2. Other chronic findings, as above.
--- NOTE | 2017-11-20 18:27 | RAD ---
EXAM: CT Thoracic Spine Without Intravenous Contrast CLINICAL HISTORY: 77 years old, male; Pain and injury or trauma; Fall; Initial encounter; Blunt trauma (contusions or hematomas); Pain in thoracic spine; Without myelpathy or radiculopathy; Injury date: 11/18/17; Additional info: Thoracic pain S/P fall TECHNIQUE: Axial computed tomography images of the thoracic spine without intravenous contrast. All CT scans at this facility use at least one of these dose optimization techniques: automated exposure control; mA and/or kV adjustment per patient size (includes targeted exams where dose is matched to clinical indication); or iterative reconstruction. Coronal and sagittal reformatted images were created and reviewed. COMPARISON: [facility] CT SPINE THORACIC W/O 08/31/2017 11:02 AM FINDINGS: Vertebrae: Slight exaggeration of the thoracic kyphosis. Vertebral body heights are maintained. Multilevel facet arthropathy. Spinous processes are intact. No acute fracture. Old bilateral healed rib fractures. Discs/spinal canal/neural foramina: Multilevel degenerative changes with intervertebral disc height loss and osteophyte formation. No significant osseous canal narrowing. Soft tissues: Unremarkable. IMPRESSION: 1. No acute fracture. 2. Other chronic findings, as above.
== END 2017-11-20 19:15 | disposition home or self-care (01) ==
LOC: UCEAST 15:47
DX: S09.90XA Unspecified injury of head, initial encounter (principal); S29.8XXA Other specified injuries of thorax, initial encounter; W10.9XXA Fall (on) (from) unspecified stairs and steps, initial encounter; Y92.9 Unspecified place or not applicable; R51 Headache; R07.89 Other chest pain; H93.19 Tinnitus, unspecified ear; M50.323 Other cervical disc degeneration at C6-C7 level; Z91.041 Radiographic dye allergy status
CPT/HCPCS: 70450; 71250; 72125; 72128; 99212; A9270-GY; G0463

== ENCOUNTER 2018-01-12 08:58 | Inpatient (IN) | payer MEDICARE ==
[2018-01-12] MEDS ORDERED: NS 0.9% 1000 ML* 1,000 ML IV ONE (09:29)
[2018-01-12] MEDS ORDERED: Morphine VIAL* 10 MG/ML 1 ML VIAL IV ONE (09:33)
[2018-01-12] MEDS ORDERED: Ondansetron INJ* 2 MG/ML VIAL IV ONE (09:33)
[2018-01-12] MEDS ORDERED: Morphine INJ* 4 MG/ML 1 ML SYRINGE (NEW SYRINGE VERSION) ONE (09:47)
[2018-01-12 09:49] LABS: ABS Basophils 0 10^3/ul (0-0.2); ABS Eosinophils 0.3 10^3/ul (0-0.6); ABS Lymphocytes 1.5 10^3/ul (1.0-4.8); ABS Monocytes 0.9 10^3/ul (0-0.8); ABS Neutrophils 7.5 10^3/ul (1.5-7.7); ABS Nucleated RBC 0 10^3/ul; Hematocrit 40 % (42-52); Hemoglobin 13.1 g/dl (14.0-18.0); Mean Corpuscular HGB Conc 33 g/dl (31-36); Mean Corpuscular Hemoglobin 31 pg (27-31); Mean Corpuscular Volume 96 fL (80-94); Mean Platelet Volume 7.8 um3 (7.4-10.4); Nucleated Red Blood Cells % 0; Platelet Count 189 10^3/ul (150-450); Red Cell Distribution Width 15 % (10.5-15); White Blood Count 10.2 10^3/ul (3.5-10.8)
[2018-01-12 10:06] LABS: EGFR Non-African American 151.6 (>60)
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
[2018-01-12 10:30] LABS: Urine Appearance Cloudy; Urine Blood Negative (Negative); Urine Color Amber; Urine Ketones Negative (Negative); Urine Protein Negative (Negative); Urine Red Blood Cell Trace(0-2/hpf) (Absent); Urine Specific Gravity 1.019 (1.010-1.030); Urine Urobilinogen Negative (Negative); Urine White Blood Cell 3+(>20/hpf) (Absent)
--- NOTE | 2018-01-12 12:19 | ADMNOTE ---
Subjective Date of Service: 01/12/18 Interval History: ADMISSION HISTORY AND PHYSICAL EXAM: Allergies Allergy/AdvReac Type Severity Reaction Status Date / Time Iodinated Contrast- Oral and Allergy Intermediate Rash Verified 01/12/18 09:05 IV Dye Home Medications Medication Instructions Recorded Confirmed Type DULoxetine CAP* [Cymbalta CAP*] 30 mg PO QAM 12/19/12 08/31/17 History Omeprazole CAP* [Prilosec CAP* 20 20 mg PO BID 03/20/14 08/31/17 History MG] Albuterol 2.5MG/3ML (0.083%)* 2.5 mg INH .Q4-6H PRN 03/25/15 08/31/17 History [Ventolin 2.5 MG/3 ML NEB.MARYANN*] Fluticasone-Salmeterol 500-50* 1 puff INH BID 03/25/15 08/31/17 History [Advair Diskus 500-50*] Albuterol HFA INHALER* [Ventolin 2 puff INH Q4H PRN 08/15/16 08/31/17 History HFA Inhaler*] Aspirin TAB* [Aspirin 325 MG TAB*] 325 mg PO DAILY 08/15/16 08/31/17 History Furosemide TAB* [Lasix TAB*] 20 - 40 mg PO DAILY PRN 08/15/16 08/31/17 History Multivitamins/Minerals TAB* 1 tab PO DAILY 08/15/16 08/31/17 History [Theragran/minerals TAB*] Ondansetron ODT TAB* [Zofran 4 MG 8 mg PO Q8H PRN 08/15/16 08/31/17 History Odt TAB*] Dutasteride (NF) [Avodart (NF)] 0.5 mg PO DAILY 08/31/17 08/31/17 History Escitalopram (NF) [Lexapro 20 mg 20 mg PO BID 08/31/17 08/31/17 History (NF)] Metoprolol Succinate XL TAB* 50 mg PO DAILY 08/31/17 08/31/17 History [Toprol XL TAB*] Polyethylene Glycol 3350* 17 gm PO DAILY PRN 08/31/17 08/31/17 History [Miralax*] Acetaminophen TAB* [Tylenol TAB*] 650 mg PO Q6H PRN tab 09/11/17 Rx Lactobacillus Acidophilus* 1 tab PO BID tab 09/11/17 Rx Lidocaine PATCH 5%* [Lidoderm 5% 1 patch TRANSDERM DAILY patch 09/11/17 Rx Patch*] oxyCODONE SR TAB(*) [Oxycontin 20 20 mg PO Q12HR 4 Days #8 tab.sr 09/11/17 Rx mg (*)] MDD 2 Amoxicillin PO (*) [Amoxicillin 875 mg PO BID 11/20/17 11/20/17 History 875 MG (*)] HPI: This morning patient told his he didn't feel well. She observed him to not look or act himself. He has been sleeping a lot for the past year or so. No cough, chest pain. He has not tolerated CPAP in the past at home. He can barely walk from room to room. Sometimes his has to help him get in or out of bed. 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 No alcohol abuse. Lives with his who is his SDM. Past Medical History: Findings - Bilateral hip replacements, tonsillectomy, cholecystectomy, L arm AVM surgery with stent, CAD, COPD, INDIGO, GERD, Review of Systems - Measurements Intake and Output: Intake and Output Last 24 Hours 01/10/18 01/11/18 01/12/18 01/13/18 06:59 06:59 06:59 06:59 Weight 260 lb - Review of Systems Constitutional Symptoms: Negative: Weight Gain, Weight Loss, Weakness, Fatigue, Fever, Night Sweats, Unexplained Falls, Other Dermatology: Positive: Normal HEENT: Positive: Normal Eyes: Positive: Normal Thyroid: Positive: Normal Pulmonary: Positive: Home Oxygen Gastroenterology: Positive: Abdominal Pain, Constipation Musculoskeletal: Positive: Joint Pain Endocrinology: Positive: Normal Hematologic/Lymphatic: Negative: Anemia, Easy Brusing, Hx Leukemia, Hx Lymphoma, Use of Anticoagulant, Use of Antiplatelet Drugs, Other Neurology: Positive: Normal Psychiatry: Positive: Normal Allergic/Immunologic: Negative: Hx Anaphylaxis, Hx Angioedema, Hx Environmental, Hx Seasonal, Athsma, Hx HIV, Immunocompromise, Swollen Glands LymphNodes, Other Objective Vital Signs - 8 hr 01/12/18 01/12/18 01/12/18 09:05 10:00 11:07 Temperature 96.6 F Pulse Rate 71 72 Respiratory 16 16 16 Rate Blood Pressure 132/64 (mmHg) O2 Sat by Pulse 89 98 Oximetry 01/12/18 11:51 Temperature Pulse Rate 72 Respiratory 24 Rate Blood Pressure (mmHg) O2 Sat by Pulse 95 Oximetry Appearance: BIPAP in place, supine on ED stretcher. Passive, looks comfortable. Eyes: No Scleral Icterus Neck: NL Appearance and Movements; NL JVP, No Thyroid Enlargement, Masses Respiratory: Symmetrical Chest Expansion and Respiratory Effort, Clear to Auscultation, Clear to Percussion Cardiovascular: NL Sounds; No Murmurs; No JVD, RRR, No Edema, - Extremities: No Edema, No Clubbing, Cyanosis, - Skin: No Rash or Ulcers, No Nodules or Sclerosis, - Neurological: Alert and Oriented x 3, NL Sensation - He answered more quickly after being on the CPAP an hour. Result Diagrams: 01/12/18 09:39 01/12/18 09:39 Additional Lab and Data: Lab Results 01/12/18 01/12/18 01/12/18 Range/Units 09:39 09:39 09:39 WBC 10.2 (3.5-10.8) 10^3/ul RBC 4.20 (4.00-5.40) 10^6/ul Hgb 13.1 L (14.0-18.0) g/dl Hct 40 L (42-52) % MCV 96 H (80-94) fL MCH 31 (27-31) pg MCHC 33 (31-36) g/dl RDW 15 (10.5-15) % Plt Count 189 (150-450) 10^3/ul MPV 7.8 (7.4-10.4) um3 Neut % (Auto) 72.9 (38-83) % Lymph % (Auto) 15.0 L (25-47) % [place] % (Auto) 9.0 H (0-7) % Eos % (Auto) 3.0 (0-6) % Baso % (Auto) 0.1 (0-2) % Absolute Neuts (auto) 7.5 (1.5-7.7) 10^3/ul Absolute Lymphs (auto) 1.5 (1.0-4.8) 10^3/ul Absolute Monos (auto) 0.9 H (0-0.8) 10^3/ul Absolute Eos (auto) 0.3 (0-0.6) 10^3/ul Absolute Basos (auto) 0 (0-0.2) 10^3/ul Absolute Nucleated RBC 0 10^3/ul Nucleated RBC % 0 APTT 27.8 (26.0-36.3) seconds Sodium 143 (135-145) mmol/L Potassium 4.2 (3.5-5.0) mmol/L Chloride 98 L (101-111) mmol/L Carbon Dioxide Pending Anion Gap Pending BUN 19 (6-24) mg/dL Creatinine 0.53 L (0.67-1.17) mg/dL Est GFR ( Amer) 183.4 (>60) Est GFR (Non-Af Amer) 151.6 (>60) BUN/Creatinine Ratio 35.8 H (8-20) Glucose 116 H (70-100) mg/dL Lactic Acid (0.5-2.0) mmol/L Calcium 8.9 (8.6-10.3) mg/dL Magnesium 1.8 L (1.9-2.7) mg/dL Total Bilirubin 0.50 (0.2-1.0) mg/dL AST 19 (13-39) U/L ALT 16 (7-52) U/L Alkaline Phosphatase 116 H (34-104) U/L Ammonia (16-53) mcmol/L Troponin I Pending C-Reactive Protein 5.97 (<8.01) mg/L B-Natriuretic Peptide Total Protein 6.3 L (6.4-8.9) g/dL Albumin 3.6 (3.2-5.2) g/dL Globulin 2.7 (2-4) g/dL Albumin/Globulin Ratio 1.3 (1-3) Amylase 21 L (29-103) U/L Lipase < 10 L (11.0-82.0) U/L 01/12/18 01/12/18 Range/Units 09:39 09:39 WBC (3.5-10.8) 10^3/ul RBC (4.00-5.40) 10^6/ul Hgb (14.0-18.0) g/dl Hct (42-52) % MCV (80-94) fL MCH (27-31) pg MCHC (31-36) g/dl RDW (10.5-15) % Plt Count (150-450) 10^3/ul MPV (7.4-10.4) um3 Neut % (Auto) (38-83) % Lymph % (Auto) (25-47) % [place] % (Auto) (0-7) % Eos % (Auto) (0-6) % Baso % (Auto) (0-2) % Absolute Neuts (auto) (1.5-7.7) 10^3/ul Absolute Lymphs (auto) (1.0-4.8) 10^3/ul Absolute Monos (auto) (0-0.8) 10^3/ul Absolute Eos (auto) (0-0.6) 10^3/ul Absolute Basos (auto) (0-0.2) 10^3/ul Absolute Nucleated RBC 10^3/ul Nucleated RBC % APTT (26.0-36.3) seconds Sodium (135-145) mmol/L Potassium (3.5-5.0) mmol/L Chloride (101-111) mmol/L Carbon Dioxide Anion Gap BUN (6-24) mg/dL Creatinine (0.67-1.17) mg/dL Est GFR ( Amer) (>60) Est GFR (Non-Af Amer) (>60) BUN/Creatinine Ratio (8-20) Glucose (70-100) mg/dL Lactic Acid 1.2 (0.5-2.0) mmol/L Calcium (8.6-10.3) mg/dL Magnesium (1.9-2.7) mg/dL Total Bilirubin (0.2-1.0) mg/dL AST (13-39) U/L ALT (7-52) U/L Alkaline Phosphatase (34-104) U/L Ammonia 63 H (16-53) mcmol/L Troponin I C-Reactive Protein (<8.01) mg/L B-Natriuretic Peptide Pending Total Protein (6.4-8.9) g/dL Albumin (3.2-5.2) g/dL Globulin (2-4) g/dL Albumin/Globulin Ratio (1-3) Amylase (29-103) U/L Lipase (11.0-82.0) U/L Assess/Plan/Problems-Billing Assessment: - Patient Problems (1) Obstructive sleep apnea on CPAP Current Visit: No Status: Chronic Code(s): G47.33 - OBSTRUCTIVE SLEEP APNEA (ADULT) (PEDIATRIC) SNOMED Code(s): 21862047 Comment: Hypercarbia with resp acidosis on background of chronic hypercarbia. I explained the need to keep his O2 flow rate to a minimum. Plan on overnight oximetry on 2 L NC the second hospital night. He usually uses 3- 3 /1 L/.min at home. Stop oxycodone SR, duloxetine. (2) CAD (coronary artery disease) Current Visit: No Status: Acute Code(s): I25.10 - ATHSCL HEART DISEASE OF [place] CORONARY ARTERY W/O ANG PCTRS SNOMED Code(s): 74906228 Comment: - Minimal atherosclerosis on previous cath. No other known history of CAD. - Continue BB, ASA. (3) Chronic pain Current Visit: No Status: Acute Code(s): G89.29 - OTHER CHRONIC PAIN SNOMED Code(s): 48093910 Comment: Continue lidocaine patch. Scheduled APAP. (4) Hyperammonemia Current Visit: Yes Status: Acute Code(s): E72.20 - DISORDER OF UREA CYCLE METABOLISM, UNSPECIFIED SNOMED Code(s): 3923072 Comment: Similar level in 07/2016. Start lactulose 01/12.
[2018-01-12] MEDS ORDERED: Albuterol 2.5 MG/3 ML NEB.SOL* (0.083%) INH PRN (12:32)
--- NOTE | 2018-01-12 12:51 | RAD ---
Indication: Slurred speech. CT of the brain performed without IV contrast. Comparison is made with previous exam dated November 20, 2017. Ventricular structures are midline. No midline shift is noted. There is no evidence of intracranial mass or hemorrhage. Left sided basal ganglia calcifications are noted. This was present on prior exam of November 20, 2017 without significant change. Mastoid air cells and paranasal sinuses are otherwise unremarkable. IMPRESSION: Left sided basal ganglia calcifications. No evidence of intracranial mass or hemorrhage is noted.
[2018-01-12] MEDS ORDERED: Polyethylene Glycol 3350* 17 GM PACKET PO PRN (13:13)
--- NOTE | 2018-01-12 13:26 | RAD ---
Indication: Abdominal pain. CT of the abdomen and pelvis was performed after oral contrast administration. Coronal and sagittal reconstructed images were obtained. No IV contrast was given. There is evidence of old rib fractures in the left lower ribs. Old healed rib fractures of the left ninth, eighth, seventh and sixth ribs are noted. No pericardial effusion is noted. Atelectasis is noted in the right base. Liver is normal in size. No focal lesions or intrahepatic duct dilatation is noted. Patient is status post cholecystectomy. The spleen is normal in size. The pancreas is atrophic. Common duct is not dilated. No adrenal masses are noted. The kidneys demonstrate no hydronephrosis in either kidney. Parapelvic cysts are noted in the right kidney. There is a left cortical cyst measuring 3.6 cm. Atherosclerotic aorta is noted. No retroperitoneal lymphadenopathy is noted. CT of the pelvis demonstrates no pelvic adenopathy. There is a Osorio catheter in a partially collapsed urinary bladder. Diverticulosis without definite evidence of diverticulitis is noted. No dilated loops of bowel are noted. The colon is filled with stool. In the right abdominal wall in the subcutaneous tissue there is a fluid collection measuring 7.8 x 9.6 x 5.0 cm. This is of uncertain etiology. IMPRESSION: No abdominal or pelvic masses or fluid collections are noted. There is diverticulosis without definite evidence of diverticulitis of the sigmoid colon. No abnormal masses are noted. In the right subcutaneous tissue in the abdominal wall there is a fluid collection measuring 7.8 x 9.5 x 4.9 cm. Abscess is not excluded.
[2018-01-12] MEDS ORDERED: Acetaminophen TAB* 325 MG ONE (14:35)
[2018-01-12] MEDS: Enoxaparin(*) 40 MG/0.4 ML SYR SUBCUT SCH (14:39)
[2018-01-12] MEDS ORDERED: Acetaminophen TAB* 325 MG PO ONE (14:40)
[2018-01-12] MEDS: Metoprolol Succinate XL TAB* 50 MG PO SCH (14:40)
[2018-01-12] MEDS ORDERED: NS 0.9% 1000 ML* 1,000 ML IV SCH (16:00)
[2018-01-12] MEDS: D5W 1/2 NS KCl 20 Meq 1000 ML* 1,000 ML IV SCH (17:21)
[2018-01-12] MEDS: Acetaminophen TAB* 325 MG PO SCH (17:21)
[2018-01-12] MEDS: Mometasone/Formoter 200/5 MDI INH SCH (18:42)
[2018-01-12] MEDS: Morphine VIAL* 4 MG/ML VIAL (1 ml vial) IV PRN ×2 (18:46→21:01)
[2018-01-13] MEDS ORDERED: Nitroglycerin TAB 0.4 MG* 0.4 MG TAB ONE
[2018-01-13] MEDS ORDERED: Nitroglycerin 2% OINT* 1 GM PAK ONE (00:21)
[2018-01-13] MEDS: Morphine VIAL* 4 MG/ML VIAL (1 ml vial) IV PRN ×6 (00:40→23:01)
--- NOTE | 2018-01-13 00:56 | PN ---
Hospitalist Progress Note Date of Service: 01/13/18 called to the bedside due to c/o of chest pain below the left rib cage ---> pt was first given sl nitro but put sl nitro on his tonque instead of under. sbp went from 112 to 130. hx of cad stat ekg showed st t depression on the v5-v6. nitro past 0.5 inch q 6 and will recycle trop and ekg.
[2018-01-13] MEDS: Acetaminophen TAB* 325 MG PO SCH ×5 (02:11→19:54)
[2018-01-13] MEDS: Omeprazole CAP* 20 MG PO SCH ×3 (02:11→19:54)
[2018-01-13] MEDS: Mometasone/Formoter 200/5 MDI INH SCH ×3 (02:11→19:32)
[2018-01-13] MEDS: D5W 1/2 NS KCl 20 Meq 1000 ML* 1,000 ML IV SCH ×3 (03:19→23:29)
[2018-01-13] MEDS ORDERED: Nitroglycerin 2% OINT* 1 GM PAK TOPICAL SCH (06:00)
--- NOTE | 2018-01-13 06:27 | PN ---
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 No alcohol abuse. Lives with his who is his SDM. Past Medical History: Findings - Bilateral hip replacements, tonsillectomy, cholecystectomy, L arm AVM surgery with stent, CAD, COPD, INDIGO, GERD, Objective Active Medications: Acetaminophen (Tylenol Tab*) 650 mg PO QID [facility] Last Admin: 01/13/18 02:11 Dose: Not Given Albuterol (Ventolin 2.5 Mg/3 Ml Neb.Damaris*) 2.5 mg INH .Q4-6H PRN PRN Reason: SHORTNESS OF BREATH Aspirin (Aspirin Tab*) 325 mg PO DAILY [facility] Citalopram Hydrobromide (Celexa Tab*) 20 mg PO DAILY [facility] Enoxaparin Sodium (Lovenox(*)) 40 mg SUBCUT Q24H [facility] Last Admin: 01/12/18 14:39 Dose: 40 mg Finasteride (Proscar Tab*) 5 mg PO DAILY [facility]; Protocol Heparin Sodium (Porcine) (Heparin Flush Picc/Ml/Cvc(*)) 1 - 3 ml FLUSH 0600, 1800 [facility]; Protocol Last Admin: 01/13/18 06:10 Dose: Not Given Potassium Chloride/Dextrose (D5w 1/2 Ns Kcl 20 Meq 1000 Ml*) 1,000 mls @ 100 mls/hr IV PER RATE [facility] Last Admin: 01/13/18 03:19 Dose: 100 mls/hr Influenza Virus Vaccine (Fluarix *Quad* 2018-*) 0.5 ml IM .ONCE ONE Stop: 01/13/18 09:01 Lactulose (Lactulose*) 30 ml PO TID [facility] Last Admin: 01/12/18 21:27 Dose: 30 ml Metoprolol Succinate (Toprol Xl Tab*) 50 mg PO DAILY [facility] Last Admin: 01/12/18 14:40 Dose: Not Given Mometasone Furoate/Formoterol Fumar (Dulera 200/5 Mdi*) 2 puff INH BID [facility] Last Admin: 01/13/18 02:11 Dose: Not Given Morphine Sulfate (Morphine Vial*) 2 mg IV Q2H PRN PRN Reason: PAIN Last Admin: 01/13/18 00:40 Dose: 2 mg Omeprazole (Prilosec Cap*) 20 mg PO BID [facility] Last Admin: 01/13/18 02:11 Dose: Not Given Polyethylene Glycol/Electrolytes (Miralax*) 17 gm PO DAILY PRN PRN Reason: CONSTIPATION Vital Signs - 8 hr 01/12/18 01/12/18 01/12/18 22:31 23:00 23:05 Temperature 100.0 F Pulse Rate 74 73 Respiratory 21 21 Rate Blood Pressure 100/59 121/56 (mmHg) O2 Sat by Pulse 99 97 Oximetry 01/12/18 01/12/18 01/13/18 23:30 23:47 00:00 Temperature Pulse Rate 76 72 71 Respiratory 18 19 21 Rate Blood Pressure 121/62 118/58 (mmHg) O2 Sat by Pulse 97 98 98 Oximetry 01/13/18 01/13/18 01/13/18 00:05 00:30 00:40 Temperature Pulse Rate 72 72 Respiratory 30 17 20 Rate Blood Pressure 135/70 121/66 (mmHg) O2 Sat by Pulse 86 98 Oximetry 01/13/18 01/13/18 01/13/18 01:00 01:01 01:31 Temperature Pulse Rate 73 77 73 Respiratory 18 13 20 Rate Blood Pressure 95/71 124/72 (mmHg) O2 Sat by Pulse 94 96 99 Oximetry 01/13/18 01/13/18 01/13/18 02:00 02:31 03:00 Temperature Pulse Rate 70 70 70 Respiratory 16 27 19 Rate Blood Pressure 120/63 118/66 124/98 (mmHg) O2 Sat by Pulse 95 95 97 Oximetry 01/13/18 01/13/18 01/13/18 03:01 03:30 03:45 Temperature 100.9 F Pulse Rate 75 Respiratory 21 20 Rate Blood Pressure 116/62 (mmHg) O2 Sat by Pulse 95 Oximetry 01/13/18 01/13/18 01/13/18 04:00 04:04 04:31 Temperature Pulse Rate 71 80 72 Respiratory 19 20 22 Rate Blood Pressure 114/66 124/54 (mmHg) O2 Sat by Pulse 95 95 96 Oximetry 01/13/18 01/13/18 05:00 06:00 Temperature Pulse Rate 74 74 Respiratory 21 19 Rate Blood Pressure 121/59 128/65 (mmHg) O2 Sat by Pulse 98 98 Oximetry Oxygen Devices in Use Now: BiPAP Result Diagrams: 01/12/18 09:39 01/12/18 09:39 Additional Lab and Data: Lab Results 01/12/18 01/12/18 01/12/18 Range/Units 09:39 09:39 09:39 WBC 10.2 (3.5-10.8) 10^3/ul RBC 4.20 (4.00-5.40) 10^6/ul Hgb 13.1 L (14.0-18.0) g/dl Hct 40 L (42-52) % MCV 96 H (80-94) fL MCH 31 (27-31) pg MCHC 33 (31-36) g/dl RDW 15 (10.5-15) % Plt Count 189 (150-450) 10^3/ul MPV 7.8 (7.4-10.4) um3 Neut % (Auto) 72.9 (38-83) % Lymph % (Auto) 15.0 L (25-47) % [place] % (Auto) 9.0 H (0-7) % Eos % (Auto) 3.0 (0-6) % Baso % (Auto) 0.1 (0-2) % Absolute Neuts (auto) 7.5 (1.5-7.7) 10^3/ul Absolute Lymphs (auto) 1.5 (1.0-4.8) 10^3/ul Absolute Monos (auto) 0.9 H (0-0.8) 10^3/ul Absolute Eos (auto) 0.3 (0-0.6) 10^3/ul Absolute Basos (auto) 0 (0-0.2) 10^3/ul Absolute Nucleated RBC 0 10^3/ul Nucleated RBC % 0 APTT 27.8 (26.0-36.3) seconds Sodium 143 (135-145) mmol/L Potassium 4.2 (3.5-5.0) mmol/L Chloride 98 L (101-111) mmol/L Carbon Dioxide Pending Anion Gap Pending BUN 19 (6-24) mg/dL Creatinine 0.53 L (0.67-1.17) mg/dL Est GFR ( Amer) 183.4 (>60) Est GFR (Non-Af Amer) 151.6 (>60) BUN/Creatinine Ratio 35.8 H (8-20) Glucose 116 H (70-100) mg/dL Lactic Acid (0.5-2.0) mmol/L Calcium 8.9 (8.6-10.3) mg/dL Magnesium 1.8 L (1.9-2.7) mg/dL Total Bilirubin 0.50 (0.2-1.0) mg/dL AST 19 (13-39) U/L ALT 16 (7-52) U/L Alkaline Phosphatase 116 H (34-104) U/L Ammonia (16-53) mcmol/L Troponin I Pending C-Reactive Protein 5.97 (<8.01) mg/L B-Natriuretic Peptide Total Protein 6.3 L (6.4-8.9) g/dL Albumin 3.6 (3.2-5.2) g/dL Globulin 2.7 (2-4) g/dL Albumin/Globulin Ratio 1.3 (1-3) Amylase 21 L (29-103) U/L Lipase < 10 L (11.0-82.0) U/L 01/12/18 01/12/18 Range/Units 09:39 09:39 WBC (3.5-10.8) 10^3/ul RBC (4.00-5.40) 10^6/ul Hgb (14.0-18.0) g/dl Hct (42-52) % MCV (80-94) fL MCH (27-31) pg MCHC (31-36) g/dl RDW (10.5-15) % Plt Count (150-450) 10^3/ul MPV (7.4-10.4) um3 Neut % (Auto) (38-83) % Lymph % (Auto) (25-47) % [place] % (Auto) (0-7) % Eos % (Auto) (0-6) % Baso % (Auto) (0-2) % Absolute Neuts (auto) (1.5-7.7) 10^3/ul Absolute Lymphs (auto) (1.0-4.8) 10^3/ul Absolute Monos (auto) (0-0.8) 10^3/ul Absolute Eos (auto) (0-0.6) 10^3/ul Absolute Basos (auto) (0-0.2) 10^3/ul Absolute Nucleated RBC 10^3/ul Nucleated RBC % APTT (26.0-36.3) seconds Sodium (135-145) mmol/L Potassium (3.5-5.0) mmol/L Chloride (101-111) mmol/L Carbon Dioxide Anion Gap BUN (6-24) mg/dL Creatinine (0.67-1.17) mg/dL Est GFR ( Amer) (>60) Est GFR (Non-Af Amer) (>60) BUN/Creatinine Ratio (8-20) Glucose (70-100) mg/dL Lactic Acid 1.2 (0.5-2.0) mmol/L Calcium (8.6-10.3) mg/dL Magnesium (1.9-2.7) mg/dL Total Bilirubin (0.2-1.0) mg/dL AST (13-39) U/L ALT (7-52) U/L Alkaline Phosphatase (34-104) U/L Ammonia 63 H (16-53) mcmol/L Troponin I C-Reactive Protein (<8.01) mg/L B-Natriuretic Peptide Pending Total Protein (6.4-8.9) g/dL Albumin (3.2-5.2) g/dL Globulin (2-4) g/dL Albumin/Globulin Ratio (1-3) Amylase (29-103) U/L Lipase (11.0-82.0) U/L Microbiology and Other Data: Microbiology 01/12/18 14:17 Nasal Screen MRSA (PCR) - Final Nasal Mrsa Not Detected Assess/Plan/Problems-Billing Assessment:
--- NOTE | 2018-01-13 07:40 | RAD ---
Indication: Hypercarbia. Single frontal view of the chest demonstrates tortuous aorta. Cardiomegaly is noted. Lungs are clear. When compared to previous exam of September 03, 2017 no significant change is noted. IMPRESSION: Cardiomegaly with tortuous descending aorta.
--- NOTE | 2018-01-13 07:41 | PN ---
Subjective Date of Service: 01/13/18 Interval History: C/O BL rib pain, states he fell at home. Appetite OK. No cough. 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 No alcohol abuse. Lives with his who is his SDM. Past Medical History: Findings - Bilateral hip replacements, tonsillectomy, cholecystectomy, L arm AVM surgery with stent, CAD, COPD, INDIGO, GERD, Objective Active Medications: Acetaminophen (Tylenol Tab*) 650 mg PO QID [facility] Last Admin: 01/13/18 02:11 Dose: Not Given Albuterol (Ventolin 2.5 Mg/3 Ml Neb.Damaris*) 2.5 mg INH .Q4-6H PRN PRN Reason: SHORTNESS OF BREATH Aspirin (Aspirin Tab*) 325 mg PO DAILY [facility] Citalopram Hydrobromide (Celexa Tab*) 20 mg PO DAILY [facility] Enoxaparin Sodium (Lovenox(*)) 40 mg SUBCUT Q24H [facility] Last Admin: 01/12/18 14:39 Dose: 40 mg Finasteride (Proscar Tab*) 5 mg PO DAILY [facility]; Protocol Heparin Sodium (Porcine) (Heparin Flush Picc/Ml/Cvc(*)) 1 - 3 ml FLUSH 0600, 1800 [facility]; Protocol Last Admin: 01/13/18 06:10 Dose: Not Given Potassium Chloride/Dextrose (D5w 1/2 Ns Kcl 20 Meq 1000 Ml*) 1,000 mls @ 100 mls/hr IV PER RATE [facility] Last Admin: 01/13/18 03:19 Dose: 100 mls/hr Influenza Virus Vaccine (Fluarix *Quad* 2017-*) 0.5 ml IM .ONCE ONE Stop: 01/13/18 09:01 Lactulose (Lactulose*) 30 ml PO TID [facility] Last Admin: 01/12/18 21:27 Dose: 30 ml Metoprolol Succinate (Toprol Xl Tab*) 50 mg PO DAILY [facility] Last Admin: 01/12/18 14:40 Dose: Not Given Mometasone Furoate/Formoterol Fumar (Dulera 200/5 Mdi*) 2 puff INH BID [facility] Last Admin: 01/13/18 07:08 Dose: 2 puff Morphine Sulfate (Morphine Vial*) 2 mg IV Q2H PRN PRN Reason: PAIN Last Admin: 01/13/18 07:32 Dose: 2 mg Omeprazole (Prilosec Cap*) 20 mg PO BID [facility] Last Admin: 01/13/18 02:11 Dose: Not Given Polyethylene Glycol/Electrolytes (Miralax*) 17 gm PO DAILY PRN PRN Reason: CONSTIPATION Vital Signs - 8 hr 01/12/18 01/13/18 01/13/18 23:47 00:00 00:05 Temperature Pulse Rate 72 71 72 Respiratory 19 21 30 Rate Blood Pressure 118/58 135/70 (mmHg) O2 Sat by Pulse 98 98 86 Oximetry 01/13/18 01/13/18 01/13/18 00:30 00:40 01:00 Temperature Pulse Rate 72 73 Respiratory 17 20 18 Rate Blood Pressure 121/66 (mmHg) O2 Sat by Pulse 98 94 Oximetry 01/13/18 01/13/18 01/13/18 01:01 01:31 02:00 Temperature Pulse Rate 77 73 70 Respiratory 13 20 16 Rate Blood Pressure 95/71 124/72 120/63 (mmHg) O2 Sat by Pulse 96 99 95 Oximetry 01/13/18 01/13/18 01/13/18 02:31 03:00 03:01 Temperature 100.9 F Pulse Rate 70 70 Respiratory 27 19 Rate Blood Pressure 118/66 124/98 (mmHg) O2 Sat by Pulse 95 97 Oximetry 01/13/18 01/13/18 01/13/18 03:30 03:45 04:00 Temperature Pulse Rate 75 71 Respiratory 21 20 19 Rate Blood Pressure 116/62 114/66 (mmHg) O2 Sat by Pulse 95 95 Oximetry 01/13/18 01/13/18 01/13/18 04:04 04:31 05:00 Temperature Pulse Rate 80 72 74 Respiratory 20 22 21 Rate Blood Pressure 124/54 121/59 (mmHg) O2 Sat by Pulse 95 96 98 Oximetry 01/13/18 01/13/18 01/13/18 06:00 06:31 07:00 Temperature Pulse Rate 74 66 74 Respiratory 19 21 18 Rate Blood Pressure 128/65 146/73 (mmHg) O2 Sat by Pulse 98 97 99 Oximetry 01/13/18 01/13/18 07:01 07:32 Temperature Pulse Rate 74 Respiratory 24 27 Rate Blood Pressure 122/68 (mmHg) O2 Sat by Pulse 99 Oximetry Oxygen Devices in Use Now: Nasal Cannula Appearance: Alert, partly up in ICU bed. In good spirits. Looks comfortable at rest. Eyes: No Scleral Icterus Neck: NL Appearance and Movements; NL JVP, No Thyroid Enlargement, Masses Respiratory: Symmetrical Chest Expansion and Respiratory Effort, Clear to Auscultation, Clear to Percussion, - - BL mod lower anterior rib tenderness Cardiovascular: NL Sounds; No Murmurs; No JVD, RRR, No Edema, - Extremities: No Edema, No Clubbing, Cyanosis, - Skin: No Rash or Ulcers, No Nodules or Sclerosis, - Neurological: Alert and Oriented x 3, NL Sensation Result Diagrams: 01/12/18 09:39 01/12/18 09:39 Additional Lab and Data: Lab Results 01/12/18 01/12/18 01/12/18 Range/Units 09:39 09:39 09:39 WBC 10.2 (3.5-10.8) 10^3/ul RBC 4.20 (4.00-5.40) 10^6/ul Hgb 13.1 L (14.0-18.0) g/dl Hct 40 L (42-52) % MCV 96 H (80-94) fL MCH 31 (27-31) pg MCHC 33 (31-36) g/dl RDW 15 (10.5-15) % Plt Count 189 (150-450) 10^3/ul MPV 7.8 (7.4-10.4) um3 Neut % (Auto) 72.9 (38-83) % Lymph % (Auto) 15.0 L (25-47) % [place] % (Auto) 9.0 H (0-7) % Eos % (Auto) 3.0 (0-6) % Baso % (Auto) 0.1 (0-2) % Absolute Neuts (auto) 7.5 (1.5-7.7) 10^3/ul Absolute Lymphs (auto) 1.5 (1.0-4.8) 10^3/ul Absolute Monos (auto) 0.9 H (0-0.8) 10^3/ul Absolute Eos (auto) 0.3 (0-0.6) 10^3/ul Absolute Basos (auto) 0 (0-0.2) 10^3/ul Absolute Nucleated RBC 0 10^3/ul Nucleated RBC % 0 APTT 27.8 (26.0-36.3) seconds Sodium 143 (135-145) mmol/L Potassium 4.2 (3.5-5.0) mmol/L Chloride 98 L (101-111) mmol/L Carbon Dioxide Pending Anion Gap Pending BUN 19 (6-24) mg/dL Creatinine 0.53 L (0.67-1.17) mg/dL Est GFR ( Amer) 183.4 (>60) Est GFR (Non-Af Amer) 151.6 (>60) BUN/Creatinine Ratio 35.8 H (8-20) Glucose 116 H (70-100) mg/dL Lactic Acid (0.5-2.0) mmol/L Calcium 8.9 (8.6-10.3) mg/dL Magnesium 1.8 L (1.9-2.7) mg/dL Total Bilirubin 0.50 (0.2-1.0) mg/dL AST 19 (13-39) U/L ALT 16 (7-52) U/L Alkaline Phosphatase 116 H (34-104) U/L Ammonia (16-53) mcmol/L Troponin I Pending C-Reactive Protein 5.97 (<8.01) mg/L B-Natriuretic Peptide Total Protein 6.3 L (6.4-8.9) g/dL Albumin 3.6 (3.2-5.2) g/dL Globulin 2.7 (2-4) g/dL Albumin/Globulin Ratio 1.3 (1-3) Amylase 21 L (29-103) U/L Lipase < 10 L (11.0-82.0) U/L 01/12/18 01/12/18 Range/Units 09:39 09:39 WBC (3.5-10.8) 10^3/ul RBC (4.00-5.40) 10^6/ul Hgb (14.0-18.0) g/dl Hct (42-52) % MCV (80-94) fL MCH (27-31) pg MCHC (31-36) g/dl RDW (10.5-15) % Plt Count (150-450) 10^3/ul MPV (7.4-10.4) um3 Neut % (Auto) (38-83) % Lymph % (Auto) (25-47) % Day % (Auto) (0-7) % Eos % (Auto) (0-6) % Baso % (Auto) (0-2) % Absolute Neuts (auto) (1.5-7.7) 10^3/ul Absolute Lymphs (auto) (1.0-4.8) 10^3/ul Absolute Monos (auto) (0-0.8) 10^3/ul Absolute Eos (auto) (0-0.6) 10^3/ul Absolute Basos (auto) (0-0.2) 10^3/ul Absolute Nucleated RBC 10^3/ul Nucleated RBC % APTT (26.0-36.3) seconds Sodium (135-145) mmol/L Potassium (3.5-5.0) mmol/L Chloride (101-111) mmol/L Carbon Dioxide Anion Gap BUN (6-24) mg/dL Creatinine (0.67-1.17) mg/dL Est GFR ( Amer) (>60) Est GFR (Non-Af Amer) (>60) BUN/Creatinine Ratio (8-20) Glucose (70-100) mg/dL Lactic Acid 1.2 (0.5-2.0) mmol/L Calcium (8.6-10.3) mg/dL Magnesium (1.9-2.7) mg/dL Total Bilirubin (0.2-1.0) mg/dL AST (13-39) U/L ALT (7-52) U/L Alkaline Phosphatase (34-104) U/L Ammonia 63 H (16-53) mcmol/L Troponin I C-Reactive Protein (<8.01) mg/L B-Natriuretic Peptide Pending Total Protein (6.4-8.9) g/dL Albumin (3.2-5.2) g/dL Globulin (2-4) g/dL Albumin/Globulin Ratio (1-3) Amylase (29-103) U/L Lipase (11.0-82.0) U/L Microbiology and Other Data: Microbiology 01/12/18 14:17 Nasal Screen MRSA (PCR) - Final Nasal Mrsa Not Detected Assess/Plan/Problems-Billing Assessment: - Patient Problems (1) Obstructive sleep apnea on CPAP Current Visit: No Status: Chronic Code(s): G47.33 - OBSTRUCTIVE SLEEP APNEA (ADULT) (PEDIATRIC) SNOMED Code(s): 54490838 Comment: Resp acidosis completely resolved after BIPAP all night 01/12-. Plan on overnight oximetry on 2 L NC 01/13-01/14. He usually uses 3- 4 L/ .min at home. Stopped oxycodone SR, duloxetine. (2) CAD (coronary artery disease) Current Visit: No Status: Acute Code(s): I25.10 - ATHSCL HEART DISEASE OF [place] CORONARY ARTERY W/O ANG PCTRS SNOMED Code(s): 67830189 Comment: - Minimal atherosclerosis on previous cath. No other known history of CAD. - Continue BB, ASA. (3) Chronic pain Current Visit: No Status: Acute Code(s): G89.29 - OTHER CHRONIC PAIN SNOMED Code(s): 75368814 Comment: Continue lidocaine patch. Scheduled APAP. Now has rib pain likely related to recent fall. Note recent CT chest showed BL old rib fractures. (4) Hyperammonemia Current Visit: Yes Status: Acute Code(s): E72.20 - DISORDER OF UREA CYCLE METABOLISM, UNSPECIFIED SNOMED Code(s): 5820604 Comment: Similar level in 07/2016. Started lactulose 01/12, had more diarrhea than he can tolerate. Dose reduced to 15 ml tid start AM 01/14.
[2018-01-13] MEDS: Metoprolol Succinate XL TAB* 50 MG PO SCH (09:31)
[2018-01-13] MEDS: Aspirin TAB* 325 MG PO SCH (09:31)
[2018-01-13] MEDS: Citalopram TAB* 20 MG PO SCH (09:31)
[2018-01-13] MEDS: Finasteride TAB* 5 MG PO SCH (09:32)
[2018-01-13] MEDS ORDERED: Ondansetron INJ* 2 MG/ML VIAL IV PRN (11:31)
[2018-01-13] MEDS: Enoxaparin(*) 40 MG/0.4 ML SYR SUBCUT SCH (13:25)
[2018-01-13] MEDS: amLODIPine TAB* 5 MG PO SCH (17:08)
[2018-01-14] MEDS: Morphine VIAL* 4 MG/ML VIAL (1 ml vial) IV PRN ×3 (01:01→05:03)
[2018-01-14 05:47] LABS: EGFR Non-African American 183.1 (>60)
[2018-01-14] MEDS ORDERED: Morphine VIAL* 4 MG/ML VIAL (1 ml vial) IV PRN (07:30)
--- NOTE | 2018-01-14 07:49 | PN ---
Subjective Date of Service: 01/14/18 Interval History: Chest pain has improved. He used the BIPAP last night when he became SOB. He asks, as usual if he can go home today. 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 No alcohol abuse. Lives with his who is his SDM. Past Medical History: Findings - Bilateral hip replacements, tonsillectomy, cholecystectomy, L arm AVM surgery with stent, CAD, COPD, INDIGO, GERD, Objective Active Medications: Acetaminophen (Tylenol Tab*) 650 mg PO QID [facility] Last Admin: 01/13/18 19:54 Dose: 650 mg Albuterol (Ventolin 2.5 Mg/3 Ml Neb.Damaris*) 2.5 mg INH .Q4-6H PRN PRN Reason: SHORTNESS OF BREATH Amlodipine Besylate (Norvasc Tab*) 2.5 mg PO DAILY [facility] Last Admin: 01/13/18 17:08 Dose: 2.5 mg Aspirin (Aspirin Tab*) 325 mg PO DAILY [facility] Last Admin: 01/13/18 09:31 Dose: 325 mg Citalopram Hydrobromide (Celexa Tab*) 20 mg PO DAILY [facility] Last Admin: 01/13/18 09:31 Dose: 20 mg Enoxaparin Sodium (Lovenox(*)) 40 mg SUBCUT Q24H [facility] Last Admin: 01/13/18 13:25 Dose: 40 mg Finasteride (Proscar Tab*) 5 mg PO DAILY [facility]; Protocol Last Admin: 01/13/18 09:32 Dose: 5 mg Heparin Sodium (Porcine) (Heparin Flush Picc/Ml/Cvc(*)) 1 - 3 ml FLUSH 0600, 1800 [facility]; Protocol Last Admin: 01/14/18 05:00 Dose: Not Given Potassium Chloride/Dextrose (D5w 1/2 Ns Kcl 20 Meq 1000 Ml*) 1,000 mls @ 100 mls/hr IV PER RATE [facility] Last Admin: 01/13/18 23:29 Dose: 100 mls/hr Lactulose (Lactulose*) 15 ml PO BID [facility] Metoprolol Succinate (Toprol Xl Tab*) 50 mg PO DAILY [facility] Last Admin: 01/13/18 09:31 Dose: 50 mg Mometasone Furoate/Formoterol Fumar (Dulera 200/5 Mdi*) 2 puff INH BID [facility] Last Admin: 01/13/18 19:32 Dose: 2 puff Morphine Sulfate (Morphine Vial*) 1 mg IV Q2H PRN PRN Reason: PAIN Omeprazole (Prilosec Cap*) 20 mg PO BID [facility] Last Admin: 01/13/18 19:54 Dose: 20 mg Ondansetron HCl (Zofran Inj*) 4 mg IV Q4H PRN PRN Reason: NAUSEA Last Admin: 01/13/18 11:56 Dose: 4 mg Vital Signs - 8 hr 01/13/18 01/14/18 01/14/18 23:48 00:00 01:00 Temperature 98.4 F Pulse Rate 70 71 Respiratory 30 20 Rate Blood Pressure 125/66 145/73 (mmHg) O2 Sat by Pulse 96 97 Oximetry 01/14/18 01/14/18 01/14/18 01:01 02:00 03:00 Temperature Pulse Rate 65 67 Respiratory 20 22 26 Rate Blood Pressure 153/76 148/71 (mmHg) O2 Sat by Pulse 97 92 Oximetry 01/14/18 01/14/18 01/14/18 03:03 03:55 04:00 Temperature 98.3 F Pulse Rate 67 Respiratory 22 18 Rate Blood Pressure 141/71 (mmHg) O2 Sat by Pulse 96 Oximetry 01/14/18 01/14/18 01/14/18 05:00 05:03 05:38 Temperature Pulse Rate 67 Respiratory 23 29 19 Rate Blood Pressure 122/59 (mmHg) O2 Sat by Pulse 94 Oximetry 01/14/18 01/14/18 01/14/18 05:40 06:00 06:02 Temperature Pulse Rate 68 69 Respiratory 20 29 26 Rate Blood Pressure 148/68 (mmHg) O2 Sat by Pulse 98 98 Oximetry 01/14/18 07:00 Temperature Pulse Rate 66 Respiratory 29 Rate Blood Pressure 126/53 (mmHg) O2 Sat by Pulse 96 Oximetry Oxygen Devices in Use Now: Nasal Cannula Appearance: Alert, partly up in ICU bed. In good spirits. Looks comfortable. Eyes: No Scleral Icterus Neck: NL Appearance and Movements; NL JVP, No Thyroid Enlargement, Masses Respiratory: Symmetrical Chest Expansion and Respiratory Effort, Clear to Auscultation, Clear to Percussion Cardiovascular: NL Sounds; No Murmurs; No JVD, RRR, No Edema, - - Bruit L subclavian area Extremities: No Edema, No Clubbing, Cyanosis, - Skin: No Rash or Ulcers, No Nodules or Sclerosis, - Neurological: Alert and Oriented x 3, NL Sensation Result Diagrams: 01/12/18 09:39 01/14/18 05:20 Additional Lab and Data: Lab Results 01/12/18 01/12/18 01/12/18 Range/Units 09:39 09:39 09:39 WBC 10.2 (3.5-10.8) 10^3/ul RBC 4.20 (4.00-5.40) 10^6/ul Hgb 13.1 L (14.0-18.0) g/dl Hct 40 L (42-52) % MCV 96 H (80-94) fL MCH 31 (27-31) pg MCHC 33 (31-36) g/dl RDW 15 (10.5-15) % Plt Count 189 (150-450) 10^3/ul MPV 7.8 (7.4-10.4) um3 Neut % (Auto) 72.9 (38-83) % Lymph % (Auto) 15.0 L (25-47) % [place] % (Auto) 9.0 H (0-7) % Eos % (Auto) 3.0 (0-6) % Baso % (Auto) 0.1 (0-2) % Absolute Neuts (auto) 7.5 (1.5-7.7) 10^3/ul Absolute Lymphs (auto) 1.5 (1.0-4.8) 10^3/ul Absolute Monos (auto) 0.9 H (0-0.8) 10^3/ul Absolute Eos (auto) 0.3 (0-0.6) 10^3/ul Absolute Basos (auto) 0 (0-0.2) 10^3/ul Absolute Nucleated RBC 0 10^3/ul Nucleated RBC % 0 APTT 27.8 (26.0-36.3) seconds Sodium 143 (135-145) mmol/L Potassium 4.2 (3.5-5.0) mmol/L Chloride 98 L (101-111) mmol/L Carbon Dioxide Pending Anion Gap Pending BUN 19 (6-24) mg/dL Creatinine 0.53 L (0.67-1.17) mg/dL Est GFR ( Amer) 183.4 (>60) Est GFR (Non-Af Amer) 151.6 (>60) BUN/Creatinine Ratio 35.8 H (8-20) Glucose 116 H (70-100) mg/dL Lactic Acid (0.5-2.0) mmol/L Calcium 8.9 (8.6-10.3) mg/dL Magnesium 1.8 L (1.9-2.7) mg/dL Total Bilirubin 0.50 (0.2-1.0) mg/dL AST 19 (13-39) U/L ALT 16 (7-52) U/L Alkaline Phosphatase 116 H (34-104) U/L Ammonia (16-53) mcmol/L Troponin I Pending C-Reactive Protein 5.97 (<8.01) mg/L B-Natriuretic Peptide Total Protein 6.3 L (6.4-8.9) g/dL Albumin 3.6 (3.2-5.2) g/dL Globulin 2.7 (2-4) g/dL Albumin/Globulin Ratio 1.3 (1-3) Amylase 21 L (29-103) U/L Lipase < 10 L (11.0-82.0) U/L 01/12/18 01/12/18 Range/Units 09:39 09:39 WBC (3.5-10.8) 10^3/ul RBC (4.00-5.40) 10^6/ul Hgb (14.0-18.0) g/dl Hct (42-52) % MCV (80-94) fL MCH (27-31) pg MCHC (31-36) g/dl RDW (10.5-15) % Plt Count (150-450) 10^3/ul MPV (7.4-10.4) um3 Neut % (Auto) (38-83) % Lymph % (Auto) (25-47) % [place] % (Auto) (0-7) % Eos % (Auto) (0-6) % Baso % (Auto) (0-2) % Absolute Neuts (auto) (1.5-7.7) 10^3/ul Absolute Lymphs (auto) (1.0-4.8) 10^3/ul Absolute Monos (auto) (0-0.8) 10^3/ul Absolute Eos (auto) (0-0.6) 10^3/ul Absolute Basos (auto) (0-0.2) 10^3/ul Absolute Nucleated RBC 10^3/ul Nucleated RBC % APTT (26.0-36.3) seconds Sodium (135-145) mmol/L Potassium (3.5-5.0) mmol/L Chloride (101-111) mmol/L Carbon Dioxide Anion Gap BUN (6-24) mg/dL Creatinine (0.67-1.17) mg/dL Est GFR ( Amer) (>60) Est GFR (Non-Af Amer) (>60) BUN/Creatinine Ratio (8-20) Glucose (70-100) mg/dL Lactic Acid 1.2 (0.5-2.0) mmol/L Calcium (8.6-10.3) mg/dL Magnesium (1.9-2.7) mg/dL Total Bilirubin (0.2-1.0) mg/dL AST (13-39) U/L ALT (7-52) U/L Alkaline Phosphatase (34-104) U/L Ammonia 63 H (16-53) mcmol/L Troponin I C-Reactive Protein (<8.01) mg/L B-Natriuretic Peptide Pending Total Protein (6.4-8.9) g/dL Albumin (3.2-5.2) g/dL Globulin (2-4) g/dL Albumin/Globulin Ratio (1-3) Amylase (29-103) U/L Lipase (11.0-82.0) U/L Microbiology and Other Data: Microbiology 01/12/18 14:17 Nasal Screen MRSA (PCR) - Final Nasal Mrsa Not Detected Assess/Plan/Problems-Billing Assessment: - Patient Problems (1) Obstructive sleep apnea on CPAP Current Visit: No Status: Chronic Code(s): G47.33 - OBSTRUCTIVE SLEEP APNEA (ADULT) (PEDIATRIC) SNOMED Code(s): 98127291 Comment: Overnight oximetry not done as he was on BIPAP. Plan to continue CPAP as outpt. Currently on 8 BIPAP, FIO2 30%. Continue to hold oxycodone SR, duloxetine. (2) CAD (coronary artery disease) Current Visit: No Status: Acute Code(s): I25.10 - ATHSCL HEART DISEASE OF [place] CORONARY ARTERY W/O ANG PCTRS SNOMED Code(s): 78578438 Comment: - Minimal atherosclerosis on previous cath. No other known history of CAD. - Continue BB, ASA. (3) Chronic pain Current Visit: No Status: Acute Code(s): G89.29 - OTHER CHRONIC PAIN SNOMED Code(s): 92168376 Comment: Continue lidocaine patch. Scheduled APAP. Now has rib pain likely related to recent fall. Note recent CT chest showed BL old rib fractures. MS reduced to 1 mg PRN 01/14. (4) Hyperammonemia Current Visit: Yes Status: Acute Code(s): E72.20 - DISORDER OF UREA CYCLE METABOLISM, UNSPECIFIED SNOMED Code(s): 9679954 Comment: Similar level in 07/2016. Started lactulose 01/12, had more diarrhea than he can tolerate. Dose reduced to 15 ml tid start AM 01/14. NH4+ 45 on 01/14/18. (5) Urinary retention Current Visit: No Status: Acute Code(s): R33.9 - RETENTION OF URINE, UNSPECIFIED SNOMED Code(s): 642804436 Comment: - Chronic, self catheterizes at home, follows with Dr. Cortez. - Continue ellison.
[2018-01-14] MEDS ORDERED: Lactulose* 15 ML UDC PO SCH ×2 (09:00)
[2018-01-14] MEDS ORDERED: D5W 1/2 NS KCl 20 Meq 1000 ML* 1,000 ML IV SCH (10:00)
[2018-01-14] MEDS: amLODIPine TAB* 5 MG PO SCH (10:42)
[2018-01-14] MEDS: Aspirin TAB* 325 MG PO SCH (10:42)
[2018-01-14] MEDS: Metoprolol Succinate XL TAB* 50 MG PO SCH (10:42)
[2018-01-14] MEDS: Omeprazole CAP* 20 MG PO SCH (10:42)
[2018-01-14] MEDS: Finasteride TAB* 5 MG PO SCH (10:42)
[2018-01-14] MEDS: Citalopram TAB* 20 MG PO SCH (10:42)
[2018-01-14] MEDS: Acetaminophen TAB* 325 MG PO SCH ×2 (10:43→13:45)
[2018-01-14] MEDS: Mometasone/Formoter 200/5 MDI INH SCH (11:25)
[2018-01-14 12:15] VITALS: BP 131/107
[2018-01-14] MEDS ORDERED: amLODIPine TAB* 5 MG PO SCH (12:45)
--- NOTE | 2018-01-14 12:56 | PN ---
"Progress Note - Progress Note Date of Service: 01/14/18 Note: Time spent on discharge 45 minutes, including exam of patient, discussion with patient, , ICU nurse, floor nurse, CM, PT, review of ISTOP and EMR, and preparation of discharge documents. Welcome [facility] Update Personal Info CONCRETE TECHNICIAN FAQ CONCRETE TECHNICIAN Search Results Help CONCRETE TECHNICIAN Help Please direct any questions regarding prescription data displayed on the CONCRETE TECHNICIAN Registry to the dispensing pharmacy (Click - Show Extended View). The dispenser is the source of all data presented. Only the dispenser can confirm or modify the data reported to, and displayed on, the CONCRETE TECHNICIAN Registry. Patient Search Multi-Patient Search Reports Drug Listing Designation My [place] Numbers Data Detail Level: Printer-Friendly View Extended View Confidential Drug Utilization Report Search Terms: familia sethi, 1940 Search Date: 01/14/2018 12:54:56 PM The Drug Utilization Report below displays all of the controlled substance prescriptions, if any, that your patient has filled in the last twelve months. The information displayed on this report is compiled from pharmacy submissions to the Department, and accurately reflects the information as submitted by the pharmacies. This report was requested by: [facility] | Reference #: [id number] Others' Prescriptions Patient Name: Familia Sethi Date: 1940 Address: [address] [place] [address] Sex: Male Rx Written Rx Dispensed Drug Quantity Days Supply Prescriber Name 12/21/2017 12/22/2017 oxycontin 15 mg tablet 120 30 Rhianna Morfin T 11/19/2017 11/23/2017 oxycontin 15 mg tablet 120 30 Juan Magana MD 10/23/2017 10/23/2017 oxycontin 15 mg tablet 120 30 [place] Foley 09/20/2017 09/21/2017 oxycontin 15 mg tablet 120 30 Rhianna Morfin 09/11/2017 09/14/2017 oxycontin 20 mg tablet 8 4 Kacie Allen 08/14/2017 08/16/2017 oxycontin 15 mg tablet 120 30 [place] Foley 07/10/2017 07/17/2017 oxycontin 15 mg tablet 120 30 [place] Foley 06/13/2017 06/18/2017 oxycontin 15 mg tablet 120 30 Ale Morfinzabekatie Andres 05/16/2017 05/19/2017 oxycontin 15 mg tablet 120 30 Juan Magana MD 04/19/2017 04/20/2017 oxycontin 15 mg tablet 120 30 Morfin, Rhianna T 04/03/2017 04/04/2017 oxycontin 15 mg tablet 60 15 [place] Foley 02/27/2017 03/01/2017 oxycontin 15 mg tablet 120 30 [place] Foley 01/30/2017 01/31/2017 oxycontin 15 mg tablet 120 30 Juan Magana MD 01/27/2017 01/27/2017 oxycontin 15 mg tablet 12 3 Juan Magana MD 01/16/2017 01/19/2017 oxycodone hcl 15 mg tablet 120 30 [place] Foley * - Drugs marked with an asterisk are compound drugs. If the compound drug is made up of more than one controlled substance, then each controlled substance will be a separate row in the"
[2018-01-14] MEDS: Enoxaparin(*) 40 MG/0.4 ML SYR SUBCUT SCH (13:45)
--- NOTE | 2018-01-15 05:28 | DS ---
CC: Dr. Paz * DISCHARGE SUMMARY: DATE OF ADMISSION: DATE OF DISCHARGE: 01/14/18 HOSPITAL COURSE: This 77-year-old man presented with malaise and not feeling himself. He was weaker. He was found to have hypercarbia and respiratory acidosis. He was admitted in the intensive care unit and given BiPAP. Several of his medications were stopped, which would namely have JINRIKSHA DRIVER depressing effect. He gradually improved. He has a CPAP machine at home which he has not used in some time. The last night in the hospital, he seemed to prefer using the BiPAP machine to help his dyspnea at times. I have encouraged him to use this at home. He is to limit himself to 2 L of oxygen by nasal cannula until further notice. Amlodipine was added to help control his blood pressure, lactulose was added for his hyperammonemia. The patient is able to ambulate adequately with physical therapy. DISCHARGE DIAGNOSES: 1. Obstructive sleep apnea and respiratory acidosis related to medication effect. 2. Coronary artery disease. 3. Chronic pain. 4. Old rib fractures. 5. Hyperammonemia. 6. Chronic urinary retention, on self-catheterization. 7. Hypertension. DISCHARGE MEDICATIONS: 1. Lactulose 15 mL b.i.d. 2. Tramadol 50 mg every 12 hours p.r.n. 3. Amlodipine 2.5 mg daily. 4. Omeprazole 20 mg b.i.d. 5. Albuterol 2.5 mg by nebulizer p.r.n. 6. Fluticasone/salmeterol 500/50 one puff b.i.d. 7. Ondansetron ODT 4 mg every 8 hours p.r.n. 8. Multivitamin with minerals daily. 9. Albuterol inhaler 2 puffs every 4 hours p.r.n. 10. Aspirin 325 mg daily. 11. Metoprolol succinate 50 mg daily. 12. Dutasteride 0.5 mg daily. 13. Acetaminophen 650 mg every 6 hours p.r.n. 14. Lactobacillus as prescribed. 15. Lidocaine patch one daily. DISCHARGE CONDITION: stable DISCHARGE DISPOSITION: home [id number]/[facility] #: [id number] [facility]
[2018-01-15] MEDS ORDERED: amLODIPine TAB* 5 MG PO SCH (09:00)
== END 2018-01-14 14:20 | disposition home or self-care (01) | DRG 155 ==
LOC: ED 08:58 → ICU 12:28 → MED 01-14 09:04
PROVIDERS: ADMIT Internal Medicine; ATTEND Internal Medicine
DX: G47.33 Obstructive sleep apnea (adult) (pediatric) (principal); E87.2 Acidosis; E72.20 Disorder of urea cycle metabolism, unspecified; J44.9 Chronic obstructive pulmonary disease, unspecified; R06.89 Other abnormalities of breathing; I11.9 Hypertensive heart disease without heart failure; I25.10 Atherosclerotic heart disease of native coronary artery without angina pectoris; K21.9 Gastro-esophageal reflux disease without esophagitis; G89.29 Other chronic pain; R33.9 Retention of urine, unspecified; Z96.643 Presence of artificial hip joint, bilateral; Z82.49 Family history of ischemic heart disease and other diseases of the circulatory system; Z83.3 Family history of diabetes mellitus; Z91.041 Radiographic dye allergy status; Z79.1 Long term (current) use of non-steroidal anti-inflammatories (NSAID); Z79.82 Long term (current) use of aspirin; Z79.899 Other long term (current) drug therapy
CPT/HCPCS: 36415; 36600; 70450; 71045; 74176; 80048; 80053; 81003; 81015; 82140; 82150; 82803; 83605; 83690; 83735; 83880; 84484; 85025; 85730; 86140; 87077; 87086; 87186; 87641; 93005; 94640; 94660; 99283; A9270-GY; G8978-GP-CI; G8979-GP-CI; G8980-GP-CI; G8987-GO-CL; G8988-GO-CJ; J1650; J2270; J2405

== ENCOUNTER 2018-05-24 08:52 | Inpatient (IN) | payer MEDICARE ==
[2018-05-24] MEDS ORDERED: Furosemide IV* 10 MG/ML 2 ML VIAL (20 MG) IV ONE (09:11)
[2018-05-24 09:20] LABS: Hematocrit 40 % (42-52); Hemoglobin 13.3 g/dl (14.0-18.0); Mean Corpuscular HGB Conc 33 g/dl (31-36); Mean Corpuscular Hemoglobin 32 pg (27-31); Mean Corpuscular Volume 96 fL (80-94); Mean Platelet Volume 7.8 fL (7.4-10.4); Platelet Count 170 10^3/ul (150-450); Red Blood Count 4.18 10^6/ul (4.00-5.40); Red Cell Distribution Width 14 % (10.5-15); White Blood Count 7.8 10^3/ul (3.5-10.8)
[2018-05-24 09:29] LABS: Activated Partial Thrombo Time 21.5 seconds (26.0-36.3); INR 0.99 (0.77-1.02)
[2018-05-24 09:43] LABS: Urine Appearance Cloudy; Urine Bacteria Absent (Absent); Urine Bilirubin Negative (Negative); Urine Blood Negative (Negative); Urine Color Amber; Urine Glucose Negative (Negative); Urine Ketones 1+ (Negative); Urine Nitrite Negative (Negative); Urine Protein 1+(30 mg/dL) (Negative); Urine Red Blood Cell Trace(0-2/hpf) (Absent); Urine Specific Gravity 1.021 (1.010-1.030); Urine Urobilinogen Negative (Negative); Urine White Blood Cell Trace(0-5/hpf) (Absent)
[2018-05-24 09:44] LABS: Albumin 3.8 g/dL (3.2-5.2); Albumin/Globulin Ratio 1.3 (1-3); BUN/Creatinine Ratio 33.3 (8-20); EGFR African American 158.5 (>60); Globulin 2.9 g/dL (2-4); Magnesium 1.7 mg/dL (1.9-2.7); Potassium 3.9 mmol/L (3.5-5.0); Total Bilirubin 0.5 mg/dL (0.2-1.0); Total Protein 6.7 g/dL (6.4-8.9)
[2018-05-24 09:46] LABS: CKMB ng/mL 3.9 ng/mL (0.6-6.3)
[2018-05-24] MEDS ORDERED: Metoprolol Tartrate IV* 1 MG/ML 5 ML VIAL IV ONE (09:47)
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
[2018-05-24 09:56] LABS: Troponin I 0.06 ng/mL (<0.04)
[2018-05-24 10:04] LABS: Influenza A Molecular POSITIVE (Negative)
[2018-05-24 10:12] LABS: T4, Total 7.16 mcg/dL (6.09-12.23)
[2018-05-24 10:16] LABS: TSH (Thyroid Stimulating Horm) 0.98 mcIU/mL (0.34-5.60)
[2018-05-24 10:19] LABS: ABS Basophils 0 10^3/ul (0-0.2); ABS Eosinophils 0 10^3/ul (0-0.6); ABS Lymphocytes 1.7 10^3/ul (1.0-4.8); ABS Monocytes 1.6 10^3/ul (0-0.8); ABS Neutrophils 4.4 10^3/ul (1.5-7.7); ABS Nucleated RBC 0 10^3/ul; Eosinophil % 0.2 %; Lymphocyte % 21.5 %; Nucleated Red Blood Cells % 0
[2018-05-24] MEDS ORDERED: Benzonatate CAP* 100 MG PO PRN (12:20)
[2018-05-24] MEDS ORDERED: Magnesium Sulfate 2 GM IV* 2 GM/50 ML BAG IVPB ONE (12:20)
[2018-05-24] MEDS ORDERED: Albuterol 2.5 MG/3 ML NEB.SOL* (0.083%) INH PRN (12:20)
[2018-05-24] MEDS ORDERED: Meclizine TAB* 12.5 MG PO PRN (12:41)
[2018-05-24] MEDS ORDERED: Mometasone/Formoter 200/5 MDI INH SCH (13:00)
[2018-05-24] MEDS: Oseltamivir CAP* 75 MG CAP PO SCH ×2 (13:26→20:47)
[2018-05-24] MEDS: Albuterol/Ipratropium NEB.SOL* Albuterol 2.5 MG/Ipratropium 0.5 MG 3 ML INH SCH ×3 (14:07→20:18)
[2018-05-24] MEDS: Heparin VIAL(*) 5000 UNITS/ML VIAL (FIVE THOUSAND) SUBCUT SCH ×2 (15:04→20:47)
[2018-05-24] MEDS ORDERED: Perflutren Lipid Microsphere* 3 ML VIAL ONE (15:31)
[2018-05-24] MEDS: guaiFENesin ER TAB 600 MG PO SCH ×2 (15:50→21:08)
[2018-05-24] MEDS: methylPREDNISolone SOD 40 MG* 1 ML VIAL IV SCH (15:51)
[2018-05-24] MEDS: DOXYcycline IV* 100 MG in NS 0.9% 250 ML* 250 ML IVPB SCH (15:54)
--- NOTE | 2018-05-24 17:37 | HP ---
CC: Dr. Paz * HISTORY AND PHYSICAL: DATE OF ADMISSION: 05/24/18 PRIMARY CARE PROVIDER: Dr. Paz. MY ATTENDING WHILE IN THE HOSPITAL: Azeb Mesa MD * (DICTATED BY GRACY JUAREZ) CHIEF COMPLAINT: Shortness of breath, malaise x3 days. HISTORY OF PRESENT ILLNESS: Mr. Sethi is a 78-year-old male with past medical history significant for COPD, obstructive sleep apnea, coronary artery disease, history of stroke, who presents to the emergency department with 3 days of worsening shortness of breath, productive cough, muscle aches, and malaise. The patient's has also been having similar symptoms. The patient has been wheezing significantly, has been taking his nebulizer a couple of times a day as well as scheduled albuterol inhalers. The patient has been taking his COPD inhalers as well. The patient had also in the last several weeks an increase in the swelling of his legs, but this is chronic and intermittent. The patient has not been able to be compliant with his sleep apnea mask due to concerns for anterior dislocation of his right eye. The patient has been having pleuritic chest pain worse with coughing and breathing, present in the middle of the chest and radiating out to both lungs. The patient has also been having abdominal pain, but no diarrhea. The patient self- catheterizes 3 times a day and has noticed decreased darkening of his urine. The patient has no other increased urinary symptoms. The patient denies recent weight loss or weight gain, presyncope, passing out, palpitations. The patient came in today in a private vehicle for shortness of breath and was found to be hypoxic with a saturation of 86 while in his car. The patient was then started on Vapotherm, refused BiPAP, was given Lasix and metoprolol while in the emergency department and referred to the hospitalist service for evaluation. PAST MEDICAL HISTORY: CAD; COPD; obstructive sleep apnea; history of CO2 narcosis, noncompliant with BiPAP; GERD; CVA; chronic pain; arteriovenous malformation, left arm; chronic dizziness; BPH with self-catheterization. PAST SURGICAL HISTORY: Bilateral hip replacements, cholecystectomy, tonsillectomy, AVM repair. MEDICATIONS: 1. Aspirin 325 mg p.o. daily. 2. Avodart 0.5 mg p.o. daily. 3. OxyContin 15 mg p.o. t.i.d. 4. Omeprazole 20 mg p.o. b.i.d. 5. Metoprolol succinate 50 mg daily. 6. Lexapro 40 mg p.o. daily. 7. Meloxicam 7.5 mg p.o. b.i.d. 8. Lidoderm 5% q.p.m. 9. Advair 500/50 b.i.d. 10. Albuterol inhaler 4 times a day as scheduled. 11. Albuterol nebulizer 4 times daily as needed. 12. Zofran 8 mg p.o. t.i.d. as needed. 13. Lasix 20 mg p.o. daily. 14. MiraLAX 17 g p.o. daily as needed. ALLERGIES: CONTRAST DYE. FAMILY HISTORY: The patient's father of complications of coronary artery disease. The patient's mother had diabetes and of breast cancer. The patient had a brother who of pancreatic disease, another brother who was killed. SOCIAL HISTORY: The patient has never smoked, drank, or used illicit drugs. 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 The patient is and has 3 children. The patient's surrogate decision maker would be his , Rekha Sethi. REVIEW OF SYSTEMS: A 14-point review of systems were reviewed and negative except as above in the HPI. PHYSICAL EXAMINATION GENERAL: The patient is a 78-year-old male who appears stated age, sitting in the bed with mildly increased work of breathing. VITAL SIGNS: At the time of evaluation, temperature 98.6, pulse rate 95, respiratory rate 25, oxygen saturation 95% on BiPAP at an FiO2 of 50%, 4 L per minute, blood pressure 124/74. HEENT: Head: Normocephalic, atraumatic. Sclerae anicteric. No conjunctival injection. Nasal mucosa moist. Oral mucosa moist. No pharyngeal erythema, discharge, or exudate. NECK: Supple, nontender. No lymphadenopathy. No carotid bruits auscultated. No JVD. RESPIRATORY: Diminished breath sounds. Expiratory wheezes throughout. No rhonchi. CARDIAC: Regular rate and rhythm. No clicks, murmurs, gallops or rubs. Pluses are 2+ in the bilateral dorsalis pedis, posterior tibialis, and radial areas. 2+ bilateral lower extremity pitting edema. No bilateral calf tenderness. ABDOMEN: Soft, nontender, nondistended. Bowel sounds present and normoactive normoactive in all 4 quadrants. No hepatosplenomegaly. No abdominal bruits auscultated. No hepatojugular reflux. GENITOURINARY: Osorio catheter in place draining dark red urine. No suprapubic or CVA tenderness. NEUROLOGIC: Cranial nerves II through XII intact. No focal deficits. Drowsy, but oriented x3. PSYCHIATRIC: Pleasant and cooperative. SKIN: Clean, dry, and intact. No rash. DIAGNOSTIC STUDIES/LAB DATA: White blood cell count 7.8, hemoglobin 13.3, platelet count 170. INR of 0.99, aPTT 21.5. D-dimer less than 200. ABG; pH 7.38, PCO2 of 62, PO2 of 85, HCO3 of 32, base excess 9.2 on Vapotherm FiO2 of 50. Sodium 137, potassium 3.9, chloride 95, carbon dioxide 34, anion gap 8, BUN 20, creatinine 0.60, glucose 110, lactic acid 1.0, calcium 9.0, magnesium 1.7. Bilirubin 0.5, AST 46, ALT 30, alkaline phosphatase 76. CK 308, CK-MB 3.9 , troponin I 0.06, BNP 255. Protein 6.7, albumin 3.8, globulin 2.9. TSH 0.9, thyroxine 7.16. Urine shows 1+ protein, 1+ ketones. Influenza A test positive. Studies: Electrocardiogram shows normal sinus rhythm, right bundle branch block , frequent PACs, wandering baseline, difficult to interpret study, left axis deviation, no hypertrophy or enlargement, consistent with previous study. Chest x-ray read as cardiomegaly, this author's interpretation shows interstitial infiltrates bilaterally consistent with pulmonary edema or bronchopneumonia. ASSESSMENT AND PLAN: Impression: Mr. Sethi is a 78-year-old male with past medical history significant for chronic obstructive pulmonary disease, coronary artery disease, obstructive sleep apnea who presents to the emergency department with a story consistent with jammie the flu approximately 3 days ago with pneumonia and chronic obstructive pulmonary disease exacerbation. The patient admitted to the ICU on Vapotherm and be treated concurrently for his flu and chronic obstructive pulmonary disease. 1. Acute hypoxic respiratory failure, flu, chronic obstructive pulmonary disease exacerbation. The patient is currently requiring FiO2 of 50% via Vapotherm. The patient is saturating well on this. The patient will be admitted to the ICU. The patient has significant wheezing throughout his lungs. The patient will be started on scheduled DuoNebs. The patient will be continued on his home Advair, which will be substituted with Dulera. The patient will have albuterol inhalers as needed as well. The patient will not be treated with a LAMA at this time, though he should likely be on one at home. The patient has an ABG with a mildly elevated CO2. ABG will be repeated in the morning. As the patient has a history of hypercarbic respiratory failure and CO2 narcosis, the patient will be monitored closely for changes in his mental status which may represent CO2 accumulation. The patient will have IV steroids, doxycycline, and supportive care for his chronic obstructive pulmonary disease exacerbation. The patient also appears slightly fluid overloaded and his chest x-ray could be consistent with heart failure. The patient received Lasix in the emergency department and will receive low dose of Lasix daily. The patient will be started on Tamiflu as well for a total of 5 days b.i.d. dosing 2. Obstructive sleep apnea. The patient will be on Vapotherm. The patient does not tolerate BiPAP. The patient will be again monitored closely for signs of CO2 narcosis. 3. Coronary artery disease: Continue the patient's aspirin. The patient has a sightly elevated troponin. This is likely demand ischemia. This will be trended. The patient will have repeat EKG in the morning. The patient has no signs of ischemia on his current EKG. Continue the patient's metoprolol. The patient does have a slightly elevated BNP. We will check a transthoracic echocardiogram at this time for signs of heart failure. 4. Benign prostatic hypertrophy: Continue Avodart. The patient had a Osorio catheter placed in the emergency department which will be continued. 5. History of cerebrovascular accident: Continue aspirin. The patient has no neurologic deficits. 6. Chronic pain. Continue his OxyContin and lidocaine patch. Monitor closely for oversedation. 7. DVT prophylaxis: The patient will have heparin subcu. The patient is high risk. 8. Disposition: The patient will be admitted to the ICU. 9. Estimated Length of stay: Greater than 2 days. 10. FEN. The patient has not received fluids due to fluid overload. The patient does not meet sepsis criteria. TIME SPENT: Approximately 75 minutes was spent on the admission of this patient , 30 of which was spent [id number] withe the patient obtaining history and physical and discussion treatment plan. Plan was discussed with my attending, Dr. Azeb Mesa, and she is in agreement. GRACY JUAREZ [id number]/KASHIF #: [id number] DARREN
--- NOTE | 2018-05-24 17:50 | ECHO ---
Patient: CRYSTAL CAMPOS [facility] Rec#: [id number] : 1940 Date: 05/24/2018 Age: 78y Height: 188 cm / 74.0 in Weight: 122 kg / 268.9 lbs Sex: M BSA: 2.5 Room#: ICU 9 Admit Date#: 05/24/2018 Type: Inpatient Referring: Ari Cardoza Reading: Anay Snyder MD Tailercpa: Lynnette Adame RN RDCS CC: Royal Paz MD Transthoracic Echocardiogram Indication: Respiratory distress BP: 129/74 HR: 92 Rhythm: A-Fib Findings History: CAD, COPD, obesity, INDIGO, CVA Technical Comments: The study is technically limited due to poor acoustic windows. The study is technically limited due to the patient's history of COPD. Left Ventricle: The left ventricular chamber size is normal. Moderate concentric left ventricular hypertrophy is observed. Global left ventricular wall motion and contractility are within normal limits. There is normal left ventricular systolic function. The estimated ejection fraction is 55-60%. There is a left ventricular septal wall motion abnormality observed, possibly due to the presence of a left bundle branch block. The assessment of diastolic function is non-diagnostic. Left Atrium: The left atrium is mildly dilated. Right Ventricle: The right ventricular cavity size is normal. The right ventricular global systolic function is low normal. Right Atrium: The right atrium is mild to moderately dilated. Aortic Valve: The aortic valve structure is not well visualized. The aortic valve is trileaflet. The aortic valve leaflets are mildly thickened. There is no evidence of aortic regurgitation. There is no evidence of aortic stenosis. Mitral Valve: The mitral valve leaflets are mildly thickened. There is no evidence of mitral regurgitation. There is no evidence of mitral stenosis. Tricuspid Valve: The tricuspid valve leaflets are normal. There is trace tricuspid regurgitation. Unable to estimate the right ventricular systolic pressure. Pulmonic Valve: The pulmonic valve structure is not well visualized. There is trace to mild pulmonic regurgitation. There is no pulmonic stenosis. Pericardium: There is no significant pericardial effusion. A pericardial fat pad is visualized. Aorta: There is moderate dilatation of the ascending aorta. The aortic arch is not well visualized. There is moderate dilatation of the aortic root. Pulmonary Artery: The main pulmonary artery is not well visualized. Venous: The venous system is not well visualized. The inferior vena cava is not visualized. Contrast: Definity was used to optimize study. A total of 4 ml of diluted Definity was given IV. Conclusions The study is technically limited due to poor acoustic windows c/w COPD. Moderate concentric left ventricular hypertrophy is observed. Global left ventricular wall motion and contractility are within normal limits. The estimated ejection fraction is 55-60%. The right ventricular global systolic function is low normal. All valves show grossly normal function. Compared with prior echo of 09/05/17. LVH noted and EF unchanged, valve function stable. Prior study noted aorta dilatation 4.0 cm. Measurements Name Value Normal Range RVDdMajor (2D) 3.5 cm (2.2 - 4.4) RAd ISD 4CH 6.1 cm (3.4 - 4.9) RA (A4C)W 3.3 cm (2.9 - 4.6) IVSd (2D) 1.6 cm (0.6 - 1) LVPWd (2D) 1.3 cm (0.6 - 1) LVIDd (2D) 3.9 cm (3.6 - 5.4) Aortic Annulus 2.8 cm (1.4 - 2.6) Ao root diameter (2D) 4.1 cm (2.1 - 3.5) Ascending Ao 4.2 cm (2.1 - 3.4) LA dimension (AP) 2D 3.6 cm (2.3 - 3.8) LAd ISD 4CH 4.9 cm (2.9 - 5.3) LA ISD 4CH W 4.6 cm (2.5 - 4.5) Name Value Normal Range MV E-wave Vmax 0.98 m/sec - MV deceleration time 251 msec - LV septal e' Vmax 0.1 m/sec - LV lateral e' Vmax 0.13 m/sec - LV E:e' septal ratio 9.8 ratio - LV E:e' lateral ratio 7.5 ratio - Name Value Normal Range AV Vmax 1.5 m/sec - AV VTI 23.9 cm - AV peak gradient 9 mmHg - AV mean gradient 5 mmHg - LVOT Vmax 1.2 m/sec - LVOT VTI 19.9 cm - LVOT peak gradient 5 mmHg - LVOT mean gradient 3 mmHg - Name Value Normal Range PV Vmax 0.98 m/sec -
[2018-05-24] MEDS: Mometasone/Formoter 200/5 MDI INH SCH (20:18)
[2018-05-24] MEDS: Pantoprazole TAB * 40 MG TAB PO SCH (20:47)
[2018-05-24] MEDS: oxyCODONE SR TAB(*) 15 MG TAB.SR PO SCH (20:47)
[2018-05-24] MEDS: Ondansetron INJ* 2 MG/ML VIAL IV PRN (21:08)
[2018-05-24] MEDS: Acetaminophen TAB* 325 MG PO PRN (21:14)
[2018-05-25] MEDS: Albuterol/Ipratropium NEB.SOL* Albuterol 2.5 MG/Ipratropium 0.5 MG 3 ML INH SCH ×5 (00:31→20:01)
[2018-05-25] MEDS: DOXYcycline IV* 100 MG in NS 0.9% 250 ML* 250 ML IVPB SCH ×2 (01:54→13:52)
[2018-05-25] MEDS: methylPREDNISolone SOD 40 MG* 1 ML VIAL IV SCH ×2 (01:54→13:22)
[2018-05-25 06:19] LABS: ABS Basophils 0 10^3/ul (0-0.2); ABS Eosinophils 0 10^3/ul (0-0.6); ABS Lymphocytes 0.8 10^3/ul (1.0-4.8); ABS Monocytes 0.3 10^3/ul (0-0.8); ABS Neutrophils 3.1 10^3/ul (1.5-7.7); ABS Nucleated RBC 0 10^3/ul; Eosinophil % 0 %; Hematocrit 41 % (42-52); Hemoglobin 13.6 g/dl (14.0-18.0); Lymphocyte % 19.2 %; Mean Corpuscular HGB Conc 33 g/dl (31-36); Mean Corpuscular Hemoglobin 32 pg (27-31); Mean Corpuscular Volume 96 fL (80-94); Mean Platelet Volume 7.7 fL (7.4-10.4); Nucleated Red Blood Cells % 0; Platelet Count 172 10^3/ul (150-450); Red Blood Count 4.26 10^6/ul (4.00-5.40); Red Cell Distribution Width 14 % (10.5-15); White Blood Count 4.2 10^3/ul (3.5-10.8)
[2018-05-25] MEDS: Heparin VIAL(*) 5000 UNITS/ML VIAL (FIVE THOUSAND) SUBCUT SCH ×3 (06:28→20:28)
[2018-05-25 06:42] LABS: Albumin 3.5 g/dL (3.2-5.2); Albumin/Globulin Ratio 1.2 (1-3); BUN/Creatinine Ratio 31.4 (8-20); Calcium 8.8 mg/dL (8.6-10.3); EGFR African American 191.2 (>60); Globulin 2.9 g/dL (2-4); Magnesium 2.1 mg/dL (1.9-2.7); Potassium 4.1 mmol/L (3.5-5.0); Total Bilirubin 0.4 mg/dL (0.2-1.0); Total Protein 6.4 g/dL (6.4-8.9)
[2018-05-25] MEDS: Oseltamivir CAP* 75 MG CAP PO SCH ×2 (08:19→19:51)
[2018-05-25] MEDS: guaiFENesin ER TAB 600 MG PO SCH ×2 (08:19→19:51)
[2018-05-25] MEDS: CMCS:Escitalopram (NF) 10 MG TAB PO SCH (08:19)
[2018-05-25] MEDS: oxyCODONE SR TAB(*) 15 MG TAB.SR PO SCH ×2 (08:19→19:51)
[2018-05-25] MEDS: Multivitamins/Minerals TAB PO SCH (08:19)
[2018-05-25] MEDS: Finasteride TAB* 5 MG PO SCH (08:19)
[2018-05-25] MEDS: Metoprolol Succinate XL TAB* 25 MG PO SCH (08:20)
[2018-05-25] MEDS: Aspirin TAB* 325 MG PO SCH (08:20)
[2018-05-25] MEDS: Pantoprazole TAB * 40 MG TAB PO SCH ×2 (08:20→19:51)
[2018-05-25] MEDS: Furosemide IV* 10 MG/ML 2 ML VIAL (20 MG) IV SLOW PU SCH (08:20)
[2018-05-25] MEDS: Lidocaine PATCH 5%* 1 PATCH TRANSDERM SCH (08:36)
[2018-05-25] MEDS: Mometasone/Formoter 200/5 MDI INH SCH ×2 (08:50→20:01)
[2018-05-25] MEDS: Ondansetron INJ* 2 MG/ML VIAL IV PRN ×2 (11:47→18:08)
[2018-05-25] MEDS: Acetaminophen TAB* 325 MG PO PRN ×2 (13:22→19:51)
[2018-05-25] MEDS: oxyCODONE TAB* 5 MG TAB PO PRN ×2 (13:52→21:22)
--- NOTE | 2018-05-25 17:58 | PN ---
Subjective Date of Service: 05/25/18 Interval History: Patient has become more lethargic overnight. Patient is only able to wake up for short periods of time. Patient denies SOB, CP, N/V, abdominal pain, diarrhea , or other pain. Family History: Unchanged from Admission Social History: Unchanged from Admission Past Medical History: Unchanged from Admission Objective Active Medications: Acetaminophen (Tylenol Tab*) 650 mg PO Q6H PRN PRN Reason: FEVER/PAIN Last Admin: 05/25/18 13:22 Dose: 650 mg Albuterol (Ventolin 2.5 Mg/3 Ml Neb.Damaris*) 2.5 mg INH Q2H PRN PRN Reason: SOB/WHEEZING Albuterol/Ipratropium (Duoneb (Albuterol 2.5 Mg/Ipratropium 0.5 Mg)) 1 neb INH [id number] AWAKE [facility] Aspirin (Aspirin Tab*) 325 mg PO DAILY [facility] Last Admin: 05/25/18 08:20 Dose: 325 mg Benzonatate (Tessalon Cap*) 100 mg PO BID PRN PRN Reason: COUGH Docusate Sodium (Colace Cap*) 100 mg PO BID PRN PRN Reason: CONSTIPATION Escitalopram Oxalate (Lexapro (Nf)) 20 mg PO DAILY [facility] Last Admin: 05/25/18 08:19 Dose: 20 mg Finasteride (Proscar Tab*) 5 mg PO DAILY [facility]; Protocol Last Admin: 05/25/18 08:19 Dose: 5 mg Furosemide (Lasix Iv*) 20 mg IV SLOW PU DAILY [facility] Last Admin: 05/25/18 08:20 Dose: 20 mg Guaifenesin (Mucinex*) 1,200 mg PO BID [facility] Last Admin: 05/25/18 08:19 Dose: 1,200 mg Heparin Sodium (Porcine) (Heparin Vial(*)) 5,000 units SUBCUT Q8HR [facility] Last Admin: 05/25/18 13:22 Dose: 5,000 units Doxycycline Hyclate 100 mg/ (Sodium Chloride) 250 mls @ 250 mls/hr IVPB Q12H [facility] Last Admin: 05/25/18 13:52 Dose: 250 mls/hr Lidocaine (Lidoderm 5% Patch*) 1 patch TRANSDERM DAILY [facility] Last Admin: 05/25/18 08:36 Dose: 1 patch Meclizine HCl (Antivert Tab*) 12.5 mg PO TID PRN PRN Reason: DIZZINESS Methylprednisolone Sodium Succinate (Solu-Medrol 40 Mg) 60 mg IV Q12H [facility] Last Admin: 05/25/18 13:22 Dose: 60 mg Metoprolol Succinate (Toprol Xl Tab*) 25 mg PO DAILY [facility] Last Admin: 05/25/18 08:20 Dose: 25 mg Mometasone Furoate/Formoterol Fumar (Dulera 200/5 Mdi*) 2 puff INH Q12H [facility] Last Admin: 05/25/18 08:50 Dose: Not Given Multivitamins/Minerals (Theragran/Minerals Tab*) 1 tab PO DAILY [facility] Last Admin: 05/25/18 08:19 Dose: 1 tab Ondansetron HCl (Zofran Inj*) 4 mg IV Q6H PRN PRN Reason: NAUSEA Last Admin: 05/25/18 11:47 Dose: 4 mg Oseltamivir Phosphate (Tamiflu Cap*) 75 mg PO BID [facility] Stop: 05/28/18 21:01 Last Admin: 05/25/18 08:19 Dose: 75 mg Oxycodone HCl (Oxycontin(*)) 15 mg PO Q12HR [facility] Last Admin: 05/25/18 08:19 Dose: 15 mg Oxycodone HCl (Roxycodone Tab*) 5 mg PO Q6H PRN PRN Reason: PAIN Last Admin: 05/25/18 13:52 Dose: 5 mg Pantoprazole Sodium (Protonix Tab*) 40 mg PO BID [facility] Last Admin: 05/25/18 08:20 Dose: 40 mg Senna (Senokot Tab*) 1 tab PO DAILY PRN PRN Reason: CONSTIPATION Vital Signs - 8 hr 05/25/18 05/25/18 05/25/18 10:00 10:01 11:00 Temperature 99.0 F 99.0 F 99.1 F Pulse Rate 87 84 89 Respiratory 24 23 21 Rate Blood Pressure 139/81 140/70 (mmHg) O2 Sat by Pulse 90 93 91 Oximetry 05/25/18 05/25/18 05/25/18 12:00 13:00 13:02 Temperature 99.1 F 99.3 F 99.3 F Pulse Rate 86 85 95 Respiratory 22 19 21 Rate Blood Pressure 111/72 (mmHg) O2 Sat by Pulse 94 94 94 Oximetry 05/25/18 05/25/18 05/25/18 14:00 14:01 15:00 Temperature 99.7 F 99.7 F 99.5 F Pulse Rate 94 95 89 Respiratory 24 20 22 Rate Blood Pressure 133/78 146/75 (mmHg) O2 Sat by Pulse 91 94 94 Oximetry 05/25/18 15:01 Temperature 99.5 F Pulse Rate 89 Respiratory 27 Rate Blood Pressure (mmHg) O2 Sat by Pulse 94 Oximetry Oxygen Devices in Use Now: High Flow Heated Nasal Cannula Appearance: Patient is a 78yo male who appears stated age and is sitting in the bed with slightly increased WOB. Eyes: No Scleral Icterus, PERRLA Ears/Nose/Mouth/Throat: NL Teeth, Lips, Gums, Clear Oropharnyx, Mucous Membranes Moist Neck: NL Appearance and Movements; NL JVP Respiratory: Symmetrical Chest Expansion and Respiratory Effort, - - Expiratory wheezes throughout. Cardiovascular: NL Sounds; No Murmurs; No JVD, RRR, No Edema Abdominal: NL Sounds; No Tenderness; No Distention, No Hepatosplenomegaly Lymphatic: No Cervical Adenopathy Extremities: No Edema, No Clubbing, Cyanosis Skin: No Rash or Ulcers, No Nodules or Sclerosis Neurological: NL Sensation, NL Muscle Strength and Tone, - - CN II-XII intact. Drowsy and oriented to self and place. Result Diagrams: 05/25/18 06:07 05/25/18 06:07 Microbiology and Other Data: Microbiology 05/24/18 09:58 Aerobic Blood Culture - Preliminary Blood Venous No Growth Day 1 Anaerobic Blood Culture - Preliminary No Growth Day 1 05/24/18 09:25 Aerobic Blood Culture - Preliminary Blood Venous No Growth Day 1 Anaerobic Blood Culture - Preliminary No Growth Day 1 05/24/18 09:20 Urine Culture - Final Urine No Growth (<1,000 CFU/mL) 05/24/18 14:50 Nasal Screen MRSA (PCR) - Final Nasal Mrsa Not Detected 05/24/18 09:50 Influenza Types A,B Antigen - Final Nasal Specimen received for Influenza A/B Molecular testing Assess/Plan/Problems-Billing Assessment: Patient is a 78yo male with a PMH for COPD, CAD, INDIGO, CVA and Chronic Hypercarbic Respiratory failure who is admitted with acute hypoxic respiratory failure after being diagnosed with Flu A and is stable on Vapotherm, but is retaining more CO2. - Patient Problems (1) Acute on chronic respiratory failure with hypoxia and hypercapnia Current Visit: Yes Status: Acute Code(s): J96.21 - ACUTE AND CHRONIC RESPIRATORY FAILURE WITH HYPOXIA; J96.22 - ACUTE AND CHRONIC RESPIRATORY FAILURE WITH HYPERCAPNIA SNOMED Code(s): 32856191470191 Comment: - Requiring Vapotherm - Due to Flu A, COPD exacerbation, and possible fluid overload. - Mental Status Deteriorating - Previously intolerant to BiPAP due to Pain/pressure behind eye - ABG shows worsening hypercapnea. Aim for lower Oxygen saturation target and monitor - Appreciate Site Surveyor input. (2) COPD (chronic obstructive pulmonary disease) Current Visit: No Status: Acute Code(s): J44.9 - CHRONIC OBSTRUCTIVE PULMONARY DISEASE, UNSPECIFIED SNOMED Code(s): 45901057 Comment: - In acute exacerbation due to flu A - Continue inhalers and PRN albuterol. - Continue Steroids and Doxycycline - On Vapotherm (3) CAD (coronary artery disease) Current Visit: No Status: Acute Code(s): I25.10 - ATHSCL HEART DISEASE OF [place] CORONARY ARTERY W/O ANG PCTRS SNOMED Code(s): 51596964 Comment: - Minimal atherosclerosis on previous cath. No other known history of CAD. - Continue BB, ASA. (4) Chronic pain Current Visit: No Status: Acute Code(s): G89.29 - OTHER CHRONIC PAIN SNOMED Code(s): 70194989 Comment: - Continue lidocaine patch. - Continue Oxycontin and PRN oxycodone. - Avoid Oversedation. (5) Pulmonary edema Current Visit: No Status: Acute Code(s): J81.1 - CHRONIC PULMONARY EDEMA SNOMED Code(s): 42289412 Comment: - Mild on exam - ECHO EF 55% with diastolic dysfunction - Daily Weights/Strict I/O - Continue low dose Lasix (6) Urinary retention Current Visit: No Status: Acute Code(s): R33.9 - RETENTION OF URINE, UNSPECIFIED SNOMED Code(s): 479905626 Comment: - Chronic, self catheterizes at home, follows with Dr. Cortez. - Continue ellison. (7) Obstructive sleep apnea on CPAP Current Visit: No Status: Chronic Code(s): G47.33 - OBSTRUCTIVE SLEEP APNEA (ADULT) (PEDIATRIC) SNOMED Code(s): 69780418 Comment: - Not compliant with BiPAP due to Above. (8) DVT prophylaxis Current Visit: No Status: Acute Code(s): KOD3982 - SNOMED Code(s): 365048449 Comment: - Heparin SubQ (9) Full code status Current Visit: No Status: Acute Code(s): Z78.9 - OTHER SPECIFIED HEALTH STATUS SNOMED Code(s): 281822723 Comment: Status and Disposition: Inpatient in the ICU, Patient will be transferred to Site Surveyor Service.
[2018-05-25] MEDS: Senna TAB PO PRN (18:08)
[2018-05-25] MEDS: Docusate CAP* 100 MG PO PRN (18:08)
--- NOTE | 2018-05-25 18:51 | PN ---
Date of Service: 05/25/18 Critical Care Services: Breathing more comfortably this afternoon - was confused earlier, but no longer. ABGs this AM: PCO2 = 70, pH=7.35, SaO2=97% (on high-flow nasal O2 with FIO2 = 100%) Vital Signs: Temp Pulse Resp BP SpO2 FiO2 99.3 F 82 26 115/71 94 40 Physical Exam: Gen:Alert, oriented HEENT:Poor dentition Lungs: Occasional rhonchi Cardiac: Reg rhythm. No murmurs or rubs Extremities: 2+ edema both LEs Fluid Balance (Past 24 Hours): 05/25/18 06:59 Intake Total 1230 Output Total 4645 Balance -3415 Weight 262 lb Intake: IV Fluids 347 NS (0.9%) 347 IVPB 283 ABX - DOXYCYCLINE 283 Magnesium Sulfate Oral 600 Output: Osorio 4645 Labs: Laboratory Results - last 24 hr 05/24/18 05/25/18 05/25/18 20:02 06:07 06:07 WBC 4.2 RBC 4.26 Hgb 13.6 L Hct 41 L MCV 96 H MCH 32 H MCHC 33 RDW 14 Plt Count 172 MPV 7.7 Neut % (Auto) 73.7 Lymph % (Auto) 19.2 [place] % (Auto) 6.8 Eos % (Auto) 0 Baso % (Auto) 0.3 Absolute Neuts (auto) 3.1 Absolute Lymphs (auto) 0.8 L Absolute Monos (auto) 0.3 Absolute Eos (auto) 0 Absolute Basos (auto) 0 Absolute Nucleated RBC 0 Nucleated RBC % 0 Patient Temperature ABG pH ABG pH (Temp Correct) ABG pCO2 ABG pCO2 (Temp Corrct ABG pO2 ABG pO2 (Temp Correct ABG HCO3 ABG O2 Saturation ABG Base Excess VBG pH VBG pCO2 VBG pO2 VBG HCO3 VBG O2 Saturation VBG Base Excess Respiration Rate O2 Delivery Device Ventilator Type Vent Mode FiO2 Inspiratory Time PEEP Pressure Support Pressure Control EPAP IPAP BiPAP Sodium 140 Potassium 4.1 Chloride 97 L Carbon Dioxide 39 H Anion Gap 4 BUN 16 Creatinine 0.51 Glucose 110 H Calcium 8.8 Magnesium 2.1 Total Bilirubin 0.40 AST 42 H ALT 29 Alkaline Phosphatase 78 Total Creatine Kinase 217 Troponin I 0.05 H* Total Protein 6.4 Albumin 3.5 Globulin 2.9 Albumin/Globulin Ratio 1.2 05/25/18 05/25/18 07:09 08:51 WBC RBC Hgb Hct MCV MCH MCHC RDW Plt Count MPV Neut % (Auto) Lymph % (Auto) [place] % (Auto) Eos % (Auto) Baso % (Auto) Absolute Neuts (auto) Absolute Lymphs (auto) Absolute Monos (auto) Absolute Eos (auto) Absolute Basos (auto) Absolute Nucleated RBC Nucleated RBC % ABG pH 7.35 ABG pCO2 70 H ABG pO2 82 ABG HCO3 32.8 H ABG O2 Saturation 97.8 ABG Base Excess 10.1 H VBG pH 7.30 L VBG pCO2 84 H VBG pO2 40.0 VBG HCO3 32.9 H VBG O2 Saturation 71.5 VBG Base Excess 11.2 H O2 Delivery Device Vapotherm FiO2 50 Sodium Potassium Chloride Carbon Dioxide Anion Gap BUN Creatinine Est GFR ( Amer) Est GFR (Non-Af Amer) BUN/Creatinine Ratio Glucose Calcium Magnesium Total Bilirubin AST ALT Alkaline Phosphatase Total Creatine Kinase Troponin I Total Protein Albumin Globulin Albumin/Globulin Ratio Studies: None today Nutrition: Oral diet Impression: Clinically improved since admission, possibly due toa 3-liter diuresis . No evidence for a pulmonary parenchymal infection. Plan: Taper off vapotherm. D/C Tamiflu. Continue other Rx. Critical Care Time: 40 minutes
[2018-05-26] MEDS: DOXYcycline IV* 100 MG in NS 0.9% 250 ML* 250 ML IVPB SCH ×2 (01:36→13:00)
[2018-05-26] MEDS: methylPREDNISolone SOD 40 MG* 1 ML VIAL IV SCH ×2 (01:36→13:00)
[2018-05-26] MEDS: Albuterol/Ipratropium NEB.SOL* Albuterol 2.5 MG/Ipratropium 0.5 MG 3 ML INH SCH ×4 (02:00→19:43)
[2018-05-26] MEDS: oxyCODONE TAB* 5 MG TAB PO PRN ×2 (04:05→11:13)
[2018-05-26] MEDS: Heparin VIAL(*) 5000 UNITS/ML VIAL (FIVE THOUSAND) SUBCUT SCH ×2 (05:30→13:00)
[2018-05-26] MEDS: Acetaminophen TAB* 325 MG PO PRN ×3 (05:32→20:43)
[2018-05-26] MEDS: Mometasone/Formoter 200/5 MDI INH SCH ×2 (07:41→19:43)
[2018-05-26] MEDS: CMCS:Escitalopram (NF) 10 MG TAB PO SCH (08:30)
[2018-05-26] MEDS: Multivitamins/Minerals TAB PO SCH (08:30)
[2018-05-26] MEDS: Lidocaine PATCH 5%* 1 PATCH TRANSDERM SCH (08:30)
[2018-05-26] MEDS: Oseltamivir CAP* 75 MG CAP PO SCH ×2 (08:30→20:43)
[2018-05-26] MEDS: Furosemide IV* 10 MG/ML 2 ML VIAL (20 MG) IV SLOW PU SCH (08:30)
[2018-05-26] MEDS: Aspirin TAB* 325 MG PO SCH (08:30)
[2018-05-26] MEDS: Pantoprazole TAB * 40 MG TAB PO SCH ×2 (08:30→20:43)
[2018-05-26] MEDS: Metoprolol Succinate XL TAB* 25 MG PO SCH (08:30)
[2018-05-26] MEDS: oxyCODONE SR TAB(*) 15 MG TAB.SR PO SCH ×2 (08:30→20:43)
[2018-05-26] MEDS: Finasteride TAB* 5 MG PO SCH (08:30)
[2018-05-26] MEDS: guaiFENesin ER TAB 600 MG PO SCH ×2 (08:30→20:44)
[2018-05-26] MEDS: Ondansetron INJ* 2 MG/ML VIAL IV PRN ×2 (09:15→20:44)
[2018-05-26] MEDS: Docusate CAP* 100 MG PO PRN (11:14)
[2018-05-26] MEDS: Senna TAB PO PRN (11:14)
[2018-05-26] MEDS ORDERED: Furosemide IV* 10 MG/ML 2 ML VIAL (20 MG) IV ONE ×2 (11:25→23:38)
--- NOTE | 2018-05-26 16:08 | PN ---
Date of Service: 05/26/18 Critical Care Services: subjectively patient continues to complain of generalized body aches. He also has dyspnea. Overall he states that he's feeling better since he was admitted to the hospital. There has been no significant change in the patient's condition since yesterday. Vital Signs: Temp Pulse Resp BP SpO2 FiO2 99.3 F 98 19 157/87 95 40 05/26/18 13:02 05/26/18 13:56 05/26/18 13:56 05/26/18 13:00 05/26/18 13:56 05/26 04:00 Physical Exam: Gen: Obese male in no obvious distress, awake and alert HEENT: mucous memory is pink and moist anicteric acyanotic Lungs: decreased breath sounds bilaterally Cardiac: S1-S2 regular no murmurs Abdomen: obese nontender nondistended positive bowel sounds Extremities: plus edema Neuro: awake alert oriented moving all 4 chambers Fluid Balance (Past 24 Hours): I= O= Net Intake & Output 05/24/18 05/25/18 05/26/18 05/27/18 06:59 06:59 06:59 06:59 Intake Total 1230 2106.3 Output Total 4645 1505 1220 Balance -3415 601.3 -1220 Weight 262 lb 12.656 oz 225 lb 15.581 oz Intake: IV Fluids 347 263.3 NS (0.9%) 347 263.3 IVPB 283 603 ABX - DOXYCYCLINE 283 554 Magnesium Sulfate 49 Oral 600 1240 Output: Osorio 4645 1505 1220 Acetaminophen (Tylenol Tab*) 650 mg PO Q6H PRN PRN Reason: FEVER/PAIN Last Admin: 05/26/18 13:52 Dose: 650 mg Albuterol (Ventolin 2.5 Mg/3 Ml Neb.Damaris*) 2.5 mg INH Q2H PRN PRN Reason: SOB/WHEEZING Albuterol/Ipratropium (Duoneb (Albuterol 2.5 Mg/Ipratropium 0.5 Mg)) 1 neb INH [id number] AWAKE [facility] Last Admin: 05/26/18 13:50 Dose: 1 neb Aspirin (Aspirin Tab*) 325 mg PO DAILY [facility] Last Admin: 05/26/18 08:30 Dose: 325 mg Benzonatate (Tessalon Cap*) 100 mg PO BID PRN PRN Reason: COUGH Docusate Sodium (Colace Cap*) 100 mg PO BID PRN PRN Reason: CONSTIPATION Last Admin: 05/26/18 11:14 Dose: 100 mg Escitalopram Oxalate (Lexapro (Nf)) 20 mg PO DAILY [facility] Last Admin: 05/26/18 08:30 Dose: 20 mg Finasteride (Proscar Tab*) 5 mg PO DAILY [facility]; Protocol Last Admin: 05/26/18 08:30 Dose: 5 mg Furosemide (Lasix Iv*) 20 mg IV SLOW PU DAILY [facility] Last Admin: 05/26/18 08:30 Dose: 20 mg Guaifenesin (Mucinex*) 1,200 mg PO BID [facility] Last Admin: 05/26/18 08:30 Dose: 1,200 mg Heparin Sodium (Porcine) (Heparin Vial(*)) 5,000 units SUBCUT Q8HR [facility] Last Admin: 05/26/18 13:00 Dose: 5,000 units Doxycycline Hyclate 100 mg/ (Sodium Chloride) 250 mls @ 250 mls/hr IVPB Q12H [facility] Last Admin: 05/26/18 13:00 Dose: 250 mls/hr Lidocaine (Lidoderm 5% Patch*) 1 patch TRANSDERM DAILY [facility] Last Admin: 05/26/18 08:30 Dose: 1 patch Meclizine HCl (Antivert Tab*) 12.5 mg PO TID PRN PRN Reason: DIZZINESS Methylprednisolone Sodium Succinate (Solu-Medrol 40 Mg) 60 mg IV Q12H [facility] Last Admin: 05/26/18 13:00 Dose: 60 mg Metoprolol Succinate (Toprol Xl Tab*) 25 mg PO DAILY [facility] Last Admin: 05/26/18 08:30 Dose: 25 mg Mometasone Furoate/Formoterol Fumar (Dulera 200/5 Mdi*) 2 puff INH Q12H [facility] Last Admin: 05/26/18 07:41 Dose: 2 puff Multivitamins/Minerals (Theragran/Minerals Tab*) 1 tab PO DAILY [facility] Last Admin: 05/26/18 08:30 Dose: 1 tab Ondansetron HCl (Zofran Inj*) 4 mg IV Q6H PRN PRN Reason: NAUSEA Last Admin: 05/26/18 09:15 Dose: 4 mg Oseltamivir Phosphate (Tamiflu Cap*) 75 mg PO BID [facility] Stop: 05/28/18 21:01 Last Admin: 05/26/18 08:30 Dose: 75 mg Oxycodone HCl (Oxycontin(*)) 15 mg PO Q12HR [facility] Last Admin: 05/26/18 08:30 Dose: 15 mg Oxycodone HCl (Roxycodone Tab*) 5 mg PO Q6H PRN PRN Reason: PAIN Last Admin: 05/26/18 11:13 Dose: 5 mg Pantoprazole Sodium (Protonix Tab*) 40 mg PO BID [facility] Last Admin: 05/26/18 08:30 Dose: 40 mg Pharmacy Profile Note (Lidocaine Patch Remove*) 1 note PATCH OFF 2100 [facility] Senna (Senokot Tab*) 1 tab PO DAILY PRN PRN Reason: CONSTIPATION Last Admin: 05/26/18 11:14 Dose: 1 tab Impression: acute respirator distress congestive heart failure/COPD exacerbation. Positive for influenza A, overall patient is improved with current management of COPD exacerbation with bronchodilator therapy and prednisone. He was also treated with doxycycline. He was transferred to the ICU for Vapotherm, which has been discontinued patient currently on 4 L nasal cannula. CHF responding well to Lasix therapy. Last echocardiogram shows diastolic dysfunction with an ejection fraction of to 55% chronic pain currently on multiple opioids, pain symptoms reasonably controlled. Continue lidocaine, OxyContin and oxycodone DVT prophylaxis Plan: Critical Care Time: 30minutes
[2018-05-26] MEDS ORDERED: Sodium Phosphate ADULT ENEMA* 118 ml bottle PR ONE (20:27)
[2018-05-26] MEDS: Lidocaine Patch REMOVE* 1 NOTE MISC PATCH OFF SCH (20:45)
[2018-05-27] MEDS ORDERED: Furosemide IV* 10 MG/ML 2 ML VIAL (20 MG) ONE (00:50)
[2018-05-27] MEDS: Heparin VIAL(*) 5000 UNITS/ML VIAL (FIVE THOUSAND) SUBCUT SCH ×4 (00:55→23:17)
[2018-05-27] MEDS: methylPREDNISolone SOD 40 MG* 1 ML VIAL IV SCH (03:27)
[2018-05-27] MEDS: DOXYcycline IV* 100 MG in NS 0.9% 250 ML* 250 ML IVPB SCH ×2 (03:28→14:57)
[2018-05-27 05:34] LABS: BUN/Creatinine Ratio 32.7 (8-20); Blood Urea Nitrogen 17 mg/dL (6-24); CO2 Carbon Dioxide 36 mmol/L (22-32); Calcium 6.7 mg/dL (8.6-10.3); Chloride 104 mmol/L (101-111); EGFR Non-African American 154.5 (>60); Glucose 78 mg/dL (70-100); Sodium 143 mmol/L (135-145)
[2018-05-27 05:38] LABS: Anion Gap 3 mmol/L (2-11)
[2018-05-27 05:44] LABS: Hematocrit 40 % (42-52); Mean Corpuscular HGB Conc 32 g/dl (31-36); Mean Corpuscular Hemoglobin 32 pg (27-31); Mean Corpuscular Volume 98 fL (80-94); Red Cell Distribution Width 14 % (10.5-15); White Blood Count 7.2 10^3/ul (3.5-10.8)
[2018-05-27 05:49] LABS: ABS Basophils 0 10^3/ul (0-0.2); ABS Eosinophils 0 10^3/ul (0-0.6); ABS Lymphocytes 1.8 10^3/ul (1.0-4.8); ABS Monocytes 0.9 10^3/ul (0-0.8); ABS Neutrophils 4.5 10^3/ul (1.5-7.7); ABS Nucleated RBC 0 10^3/ul; Eosinophil % 0 %; Nucleated Red Blood Cells % 0.1; Platelet Count 199 10^3/ul (150-450)
[2018-05-27] MEDS: Albuterol/Ipratropium NEB.SOL* Albuterol 2.5 MG/Ipratropium 0.5 MG 3 ML INH SCH ×4 (08:00→19:14)
[2018-05-27] MEDS: Mometasone/Formoter 200/5 MDI INH SCH ×2 (08:16→19:14)
[2018-05-27] MEDS: Furosemide IV* 10 MG/ML 2 ML VIAL (20 MG) IV SLOW PU SCH (08:29)
[2018-05-27] MEDS: Lidocaine PATCH 5%* 1 PATCH TRANSDERM SCH (08:31)
[2018-05-27] MEDS: guaiFENesin ER TAB 600 MG PO SCH ×2 (08:33→20:35)
[2018-05-27] MEDS: Pantoprazole TAB * 40 MG TAB PO SCH ×2 (08:33→20:35)
[2018-05-27] MEDS: CMCS:Escitalopram (NF) 10 MG TAB PO SCH (08:33)
[2018-05-27] MEDS: Multivitamins/Minerals TAB PO SCH (08:33)
[2018-05-27] MEDS: Aspirin TAB* 325 MG PO SCH (08:34)
[2018-05-27] MEDS: Finasteride TAB* 5 MG PO SCH (08:34)
[2018-05-27] MEDS: Metoprolol Succinate XL TAB* 25 MG PO SCH (08:34)
[2018-05-27] MEDS: oxyCODONE SR TAB(*) 15 MG TAB.SR PO SCH ×2 (08:34→20:35)
[2018-05-27] MEDS: Oseltamivir CAP* 75 MG CAP PO SCH ×2 (08:34→20:35)
--- NOTE | 2018-05-27 08:48 | PN ---
Date of Service: 05/27/18 Critical Care Services: did well over nigt Vital Signs: Temp Pulse Resp BP SpO2 FiO2 99.0 F 103 27 148/94 96 40 05/27/18 08:03 05/27/18 08:03 05/27/18 08:34 05/27/18 08:03 05/27/18 08:03 05/26 04:00 Physical Exam: Gen: awake HEENT: [place] and [place] Lungs: CTA Cardiac: S1 s2 Abdomen: soft Extremities:no edema Neuro: aaox3 Fluid Balance (Past 24 Hours): I= O= Net Intake & Output 05/25/18 05/26/18 05/27/18 05/28/18 06:59 06:59 06:59 06:59 Intake Total 1230 2106.3 1227 400 Output Total 4645 1505 3560 900 Balance -3415 601.3 -2333 -500 Weight 262 lb 12.656 oz 225 lb 15.581 oz 265 lb 14.04 oz Intake: IV Fluids 347 263.3 80 NS (0.9%) 347 263.3 80 IVPB 283 603 277 ABX - DOXYCYCLINE 283 554 277 Magnesium Sulfate 49 Oral 600 1240 870 400 Output: Osorio 4645 1505 3560 900 Other: Date of Last Bowel 05/22/18 Movement Labs: Laboratory Results - last 24 hr 05/27/18 05/27/18 04:45 04:45 WBC 7.2 RBC 4.10 Hgb 13.0 L Hct 40 L MCV 98 H MCH 32 H MCHC 32 RDW 14 Plt Count 199 MPV Not Reportable Neut % (Auto) 62.1 Lymph % (Auto) 25.0 Wood % (Auto) 12.7 Eos % (Auto) 0 Baso % (Auto) 0.2 Absolute Neuts (auto) 4.5 Absolute Lymphs (auto) 1.8 Absolute Monos (auto) 0.9 H Absolute Eos (auto) 0 Absolute Basos (auto) 0 Absolute Nucleated RBC 0 Nucleated RBC % 0.1 Sodium 143 Potassium TNP Chloride 104 Carbon Dioxide 36 H Anion Gap 3 BUN 17 Creatinine 0.52 L Est GFR ( Amer) 187.0 Est GFR (Non-Af Amer) 154.5 BUN/Creatinine Ratio 32.7 H Glucose 78 Calcium 6.7 L Nutrition: acute respirator distress congestive heart failure/COPD exacerbation. Positive for influenza A, overall patient is improved with current management of COPD exacerbation with bronchodilator therapy and prednisone. He was also treated with doxycycline. He was transferred to the ICU for Vapotherm, which has been discontinued patient currently on 4 L nasal cannula. CHF responding well to Lasix therapy. Last echocardiogram shows diastolic dysfunction with an ejection fraction of to 55% chronic pain currently on multiple opioids, pain symptoms reasonably controlled. Continue lidocaine, OxyContin and oxycodone DVT prophylaxis transfer to hosp service Impression: Acute respirator distress Congestive heart failure COPD exacerbation. Positive for influenza A, Over all getting better, oxygen requirement decreasing. Conb't bronchodilator therapy and prednisone. He was also treated with doxycycline. He was transferred to the ICU for Vapotherm, which has been discontinued patient currently on 4 L nasal cannula. CHF I/O better responding well to Lasix therapy. Last echocardiogram shows diastolic dysfunction with an ejection fraction of to 55% chronic pain currently on multiple opioids, pain symptoms reasonably controlled. Continue lidocaine, OxyContin and oxycodone DVT prophylaxis Plan: Critical Care Time: 30minutes chronic pain Plan: Critical Care Time:
[2018-05-27 09:27] LABS: BUN/Creatinine Ratio 34.6 (8-20); Calcium 9.1 mg/dL (8.6-10.3); EGFR Non-African American 154.5 (>60); Potassium 3.9 mmol/L (3.5-5.0)
[2018-05-27] MEDS: Ondansetron INJ* 2 MG/ML VIAL IV PRN (20:35)
[2018-05-27] MEDS ORDERED: Calcium Carbonate CHEW TAB* 500 MG (TUMS) PO PRN (22:49)
[2018-05-27] MEDS: Lidocaine Patch REMOVE* 1 NOTE MISC PATCH OFF SCH (23:18)
[2018-05-28] MEDS: Albuterol/Ipratropium NEB.SOL* Albuterol 2.5 MG/Ipratropium 0.5 MG 3 ML INH SCH ×2 (00:51→07:44)
[2018-05-28] MEDS: DOXYcycline IV* 100 MG in NS 0.9% 250 ML* 250 ML IVPB SCH (03:11)
[2018-05-28] MEDS: DOXYcycline CAP(*) 100 MG PO SCH ×3 (04:17→20:32)
[2018-05-28] MEDS: oxyCODONE TAB* 5 MG TAB PO PRN ×2 (05:49→12:57)
[2018-05-28] MEDS: Ondansetron INJ* 2 MG/ML VIAL IV PRN (05:49)
[2018-05-28] MEDS: Heparin VIAL(*) 5000 UNITS/ML VIAL (FIVE THOUSAND) SUBCUT SCH ×3 (05:49→17:31)
[2018-05-28] MEDS: Mometasone/Formoter 200/5 MDI INH SCH ×2 (07:48→19:35)
[2018-05-28] MEDS: Metoprolol Succinate XL TAB* 25 MG PO SCH (08:58)
[2018-05-28] MEDS: predniSONE TAB* 20 MG PO SCH (08:58)
[2018-05-28] MEDS: Aspirin TAB* 325 MG PO SCH (08:58)
[2018-05-28] MEDS: Finasteride TAB* 5 MG PO SCH (08:58)
[2018-05-28] MEDS: guaiFENesin ER TAB 600 MG PO SCH ×2 (08:58→20:32)
[2018-05-28] MEDS: oxyCODONE SR TAB(*) 15 MG TAB.SR PO SCH ×2 (08:58→20:32)
[2018-05-28] MEDS: Oseltamivir CAP* 75 MG CAP PO SCH ×2 (08:59→20:33)
[2018-05-28] MEDS: Multivitamins/Minerals TAB PO SCH (08:59)
[2018-05-28] MEDS: Pantoprazole TAB * 40 MG TAB PO SCH ×2 (08:59→20:33)
[2018-05-28] MEDS: Furosemide IV* 10 MG/ML 2 ML VIAL (20 MG) IV SLOW PU SCH (09:02)
[2018-05-28] MEDS: CMCS:Escitalopram (NF) 10 MG TAB PO SCH (09:04)
[2018-05-28] MEDS: Lidocaine PATCH 5%* 1 PATCH TRANSDERM SCH (09:11)
[2018-05-28] MEDS ORDERED: Albuterol/Ipratropium NEB.SOL* Albuterol 2.5 MG/Ipratropium 0.5 MG 3 ML INH PRN (09:36)
[2018-05-28 12:38] LABS: ABS Basophils 0 10^3/ul (0-0.2); ABS Eosinophils 0 10^3/ul (0-0.6); ABS Monocytes 0.7 10^3/ul (0-0.8); ABS Neutrophils 6.7 10^3/ul (1.5-7.7); ABS Nucleated RBC 0 10^3/ul; Eosinophil % 0 %; Hematocrit 41 % (42-52); Hemoglobin 13.6 g/dl (14.0-18.0); Mean Corpuscular HGB Conc 33 g/dl (31-36); Mean Corpuscular Hemoglobin 32 pg (27-31); Mean Corpuscular Volume 97 fL (80-94); Mean Platelet Volume 7.9 fL (7.4-10.4); Nucleated Red Blood Cells % 0; Platelet Count 157 10^3/ul (150-450); Red Blood Count 4.26 10^6/ul (4.00-5.40); Red Cell Distribution Width 13 % (10.5-15); White Blood Count 8.4 10^3/ul (3.5-10.8)
[2018-05-28 12:48] LABS: Albumin 3.5 g/dL (3.2-5.2); Albumin/Globulin Ratio 1.3 (1-3); BUN/Creatinine Ratio 31.3 (8-20); Calcium 8.7 mg/dL (8.6-10.3); EGFR African American 139.5 (>60); EGFR Non-African American 115.3 (>60); Globulin 2.7 g/dL (2-4); Magnesium 1.8 mg/dL (1.9-2.7); Phosphorus 2.6 mg/dL (2.5-5.0); Potassium 3.7 mmol/L (3.5-5.0); Total Bilirubin 0.5 mg/dL (0.2-1.0); Total Protein 6.2 g/dL (6.4-8.9)
[2018-05-28] MEDS ORDERED: Magnesium Sulfate 2 GM IV* 2 GM/50 ML BAG IVPB ONE (19:56)
--- NOTE | 2018-05-28 20:08 | PN ---
Subjective Date of Service: 05/28/18 Interval History: Pt seen and examined. Meds and labs reviewed. CC: Weakness ROS: Denied RICCI/dizziness, F/C, N/V, CP, SOB, increased cough, sputum production , abd pain, diarrhea, constipation, dysuria, myalgias, arthralgias, throat pain , and new skin lesions. The rest of the 14 point ROS are unremarkable. PHYSICAL EXAM: GEN APPEARANCE: Awake, not in acute distress; pt seems to fall asleep during our conversation HEENT: NC/AT, PERRLA, moist oral mucosa, (-) throat erythema NECK: Soft, supple, (-) cervical LAD, (-)JVD HEART: S1S2 WNL, RRR, No MRG CHEST: Slight wheezing, bibasal crackles, GAE ABD: Soft, ND/NT, NABS 4x Q EXT: No C/C/E SKIN: Warm to touch PSYCH: No active psychosis, hallucinations, depression, SI/HI Family History: Unchanged from Admission Social History: Unchanged from Admission Past Medical History: Unchanged from Admission Objective Active Medications: Acetaminophen (Tylenol Tab*) 650 mg PO Q6H PRN PRN Reason: FEVER/PAIN Last Admin: 05/26/18 20:43 Dose: 650 mg Albuterol (Ventolin 2.5 Mg/3 Ml Neb.Damaris*) 2.5 mg INH Q2H PRN PRN Reason: SOB/WHEEZING Last Admin: 05/27/18 21:56 Dose: 2.5 mg Albuterol/Ipratropium (Duoneb (Albuterol 2.5 Mg/Ipratropium 0.5 Mg)) 1 neb INH [id number] AWAKE PRN PRN Reason: SOB/WHEEZING Aspirin (Aspirin Tab*) 81 mg PO DAILY [facility] Benzonatate (Tessalon Cap*) 100 mg PO BID PRN PRN Reason: COUGH Calcium Carbonate (Tums*) 500 mg PO Q4H PRN PRN Reason: HEARTBURN Last Admin: 05/27/18 23:17 Dose: 500 mg Docusate Sodium (Colace Cap*) 100 mg PO BID PRN PRN Reason: CONSTIPATION Last Admin: 05/26/18 11:14 Dose: 100 mg Doxycycline Hyclate (Vibramycin Cap(*)) 100 mg PO BID [facility] Last Admin: 05/28/18 08:58 Dose: 100 mg Escitalopram Oxalate (Lexapro (Nf)) 20 mg PO DAILY [facility] Last Admin: 05/28/18 09:04 Dose: 20 mg Finasteride (Proscar Tab*) 5 mg PO DAILY [facility]; Protocol Last Admin: 05/28/18 08:58 Dose: 5 mg Furosemide (Lasix Iv*) 20 mg IV SLOW PU DAILY [facility] Last Admin: 05/28/18 09:02 Dose: 20 mg Guaifenesin (Mucinex*) 1,200 mg PO BID [facility] Last Admin: 05/28/18 08:58 Dose: 1,200 mg Heparin Sodium (Porcine) (Heparin Vial(*)) 5,000 units SUBCUT Q12H [facility] Last Admin: 05/28/18 17:31 Dose: 5,000 units Magnesium Sulfate (Magnesium Sulfate 2 Gm Iv*) 2 gm in 50 mls @ 50 mls/hr IVPB ONCE ONE Stop: 05/28/18 20:55 Lidocaine (Lidoderm 5% Patch*) 1 patch TRANSDERM DAILY [facility] Last Admin: 05/28/18 09:11 Dose: Not Given Meclizine HCl (Antivert Tab*) 12.5 mg PO TID PRN PRN Reason: DIZZINESS Metoprolol Succinate (Toprol Xl Tab*) 25 mg PO DAILY [facility] Last Admin: 05/28/18 08:58 Dose: 25 mg Mometasone Furoate/Formoterol Fumar (Dulera 200/5 Mdi*) 2 puff INH Q12H [facility] Last Admin: 05/28/18 19:35 Dose: 2 puff Multivitamins/Minerals (Theragran/Minerals Tab*) 1 tab PO DAILY [facility] Last Admin: 05/28/18 08:59 Dose: 1 tab Ondansetron HCl (Zofran Inj*) 4 mg IV Q6H PRN PRN Reason: NAUSEA Last Admin: 05/28/18 05:49 Dose: 4 mg Oseltamivir Phosphate (Tamiflu Cap*) 75 mg PO BID [facility] Stop: 05/28/18 21:01 Last Admin: 05/28/18 08:59 Dose: 75 mg Oxycodone HCl (Oxycontin(*)) 15 mg PO Q12HR [facility] Last Admin: 05/28/18 08:58 Dose: 15 mg Oxycodone HCl (Roxycodone Tab*) 5 mg PO Q6H PRN PRN Reason: PAIN Last Admin: 05/28/18 12:57 Dose: 5 mg Pantoprazole Sodium (Protonix Tab*) 40 mg PO BID [facility] Last Admin: 05/28/18 08:59 Dose: 40 mg Pharmacy Profile Note (Lidocaine Patch Remove*) 1 note PATCH OFF 2100 [facility] Last Admin: 05/27/18 23:18 Dose: 1 note Prednisone (Deltasone Tab*) 40 mg PO DAILY [facility] Last Admin: 05/28/18 08:58 Dose: 40 mg Senna (Senokot Tab*) 1 tab PO DAILY PRN PRN Reason: CONSTIPATION Last Admin: 05/26/18 11:14 Dose: 1 tab Vital Signs - 8 hr 05/28/18 05/28/18 05/28/18 12:57 15:05 15:15 Temperature 97.3 F Pulse Rate 50 Respiratory 20 18 22 Rate Blood Pressure 127/61 (mmHg) O2 Sat by Pulse 95 Oximetry 05/28/18 19:37 Temperature Pulse Rate 74 Respiratory 16 Rate Blood Pressure (mmHg) O2 Sat by Pulse 97 Oximetry Oxygen Devices in Use Now: Nasal Cannula Result Diagrams: 05/28/18 12:13 05/28/18 12:19 Microbiology and Other Data: Microbiology 05/24/18 09:58 Aerobic Blood Culture - Preliminary Blood Venous No Growth Day 1 Anaerobic Blood Culture - Preliminary No Growth Day 1 05/24/18 09:25 Aerobic Blood Culture - Preliminary Blood Venous No Growth Day 1 Anaerobic Blood Culture - Preliminary No Growth Day 1 05/24/18 09:20 Urine Culture - Final Urine No Growth (<1,000 CFU/mL) 05/24/18 14:50 Nasal Screen MRSA (PCR) - Final Nasal Mrsa Not Detected 05/24/18 09:50 Influenza Types A,B Antigen - Final Nasal Specimen received for Influenza A/B Molecular testing Assess/Plan/Problems-Billing Assessment: Patient is a 78yo male with a PMH for COPD, CAD, INDIGO, CVA and Chronic Hypercarbic Respiratory failure who is admitted with acute hypoxic respiratory failure after being diagnosed with Flu A and is stable on Vapotherm, but is retaining more CO2. - Patient Problems (1) Acute on chronic respiratory failure with hypoxia and hypercapnia Current Visit: Yes Status: Acute Code(s): J96.21 - ACUTE AND CHRONIC RESPIRATORY FAILURE WITH HYPOXIA; J96.22 - ACUTE AND CHRONIC RESPIRATORY FAILURE WITH HYPERCAPNIA SNOMED Code(s): 94567449337467 Comment: -Off of vapotherm -Likely due to Flu and COPD exacerbation w/PNA -Continue Prednisone and nebulization along with Tamiflu -Continue Doxycycline (2) Obstructive sleep apnea on CPAP Current Visit: No Status: Chronic Code(s): G47.33 - OBSTRUCTIVE SLEEP APNEA (ADULT) (PEDIATRIC) SNOMED Code(s): 99063218 Comment: -Continue CPAP (3) CAD (coronary artery disease) Current Visit: No Status: Acute Code(s): I25.10 - ATHSCL HEART DISEASE OF [place] CORONARY ARTERY W/O ANG PCTRS SNOMED Code(s): 26116780 Comment: -Will lower ASA to 81 mg -Continue Metoprolol (4) BPH (benign prostatic hyperplasia) Current Visit: Yes Status: Acute Code(s): N40.0 - BENIGN PROSTATIC HYPERPLASIA WITHOUT LOWER URINRY TRACT SYMP SNOMED Code(s): 332161917 Comment: -Continue Finasteride (5) DVT prophylaxis Current Visit: No Status: Acute Code(s): ONL4497 - SNOMED Code(s): 939984902 Comment: -Changed Heparin to q12H Status and Disposition: -For PT to re-eval in AM -For ambulatory sats in AM
[2018-05-28] MEDS: Lidocaine Patch REMOVE* 1 NOTE MISC PATCH OFF SCH (20:35)
[2018-05-29] MEDS: oxyCODONE TAB* 5 MG TAB PO PRN ×2 (03:02→14:19)
[2018-05-29] MEDS ORDERED: Naloxone* 0.4 MG/ML 1 ML VIAL ONE (03:21)
[2018-05-29] MEDS ORDERED: Naloxone* 0.4 MG/ML 1 ML VIAL IV PUSH PRN (03:29)
[2018-05-29] MEDS: Ondansetron INJ* 2 MG/ML VIAL IV PRN ×3 (03:42→20:30)
[2018-05-29] MEDS ORDERED: cloNIDine TAB* 0.1 MG PO ONE (03:42)
[2018-05-29 03:47] LABS: ABS Basophils 0.1 10^3/ul (0-0.2); ABS Eosinophils 0 10^3/ul (0-0.6); ABS Monocytes 1.2 10^3/ul (0-0.8); ABS Neutrophils 6.2 10^3/ul (1.5-7.7); ABS Nucleated RBC 0 10^3/ul; Eosinophil % 0.1 %; Hematocrit 41 % (42-52); Hemoglobin 13.2 g/dl (14.0-18.0); Lymphocyte % 21.4 %; Mean Corpuscular HGB Conc 32 g/dl (31-36); Mean Corpuscular Hemoglobin 32 pg (27-31); Mean Corpuscular Volume 97 fL (80-94); Mean Platelet Volume 7.7 fL (7.4-10.4); Nucleated Red Blood Cells % 0; Platelet Count 174 10^3/ul (150-450); Red Cell Distribution Width 14 % (10.5-15); White Blood Count 9.5 10^3/ul (3.5-10.8)
[2018-05-29 04:03] LABS: Albumin 3.4 g/dL (3.2-5.2); Albumin/Globulin Ratio 1.3 (1-3); BUN/Creatinine Ratio 34.9 (8-20); Calcium 8.9 mg/dL (8.6-10.3); EGFR African American 149.8 (>60); EGFR Non-African American 123.8 (>60); Globulin 2.7 g/dL (2-4); Potassium 3.7 mmol/L (3.5-5.0); Total Bilirubin 0.6 mg/dL (0.2-1.0); Total Protein 6.1 g/dL (6.4-8.9)
--- NOTE | 2018-05-29 04:50 | PN ---
Hospitalist Progress Note Date of Service: 05/29/18 CAT CALL at 330 AM FOR PT UNRESPONSIVE IN BED At time of arrival VSL 150/90 HR 80s, sat 95% on 3L, RR 10, Afebrile, pt is lying in bed staring straight ahead with minimal purpsefol movements, he does not track the examiner or respond to voice. PE Gen: He withdraws to pain in all 4 limbs, though is delayed, reflexes normal. Pupils are pinpoint and reactive, last dose of Oxy 15 mins prior, and had 15mg + 5 earlier in the evening. Does blink to threat RRR no MRG Sig crackles in RLL, rhonchrous wet upper airway sounds, apenic breathing. Ext warm and well perfused Labs reveiwed has had worsening metabolic alkalosis, concerning for retention, not using BiPAP ABG obtained: 7.4/78/ O2 and sat ok. My impression is that he oversedated in the setting of chronic CO2 retention #Oversedation: Narcan 0.2 mg given and pt is very quickly much more responsive, follows commands, 5/5 strength in all limbs and can answer questions. C/o nausea , frequent yawning, repeat neuro exam non focal--did give clonidine and zofran nausea and anxiety --His ABG does not show new acidosis, his respiratory rate is improved sig s/p Narcan and I will hold on BiPAP at this time. --I am also concerned he aspirated in this event and repeat CXR shows RML infiltrate as well as sig vascular markings, will cover with Levaquin After 10 mins pt is much more alert and awake CMP shows again crit CO2, consider starting acetazolamide to help with respiratory drive, ciera would consider reducing his narcotix by 10% as he continues to retain
[2018-05-29] MEDS: Heparin VIAL(*) 5000 UNITS/ML VIAL (FIVE THOUSAND) SUBCUT SCH ×2 (05:49→17:27)
[2018-05-29] MEDS: Levofloxacin 500 MG IVPREMIX(* 500 MG/100 ML BAG IVPB SCH (05:49)
[2018-05-29] MEDS: Mometasone/Formoter 200/5 MDI INH SCH ×2 (08:18→21:00)
[2018-05-29] MEDS: CMCS:Escitalopram (NF) 10 MG TAB PO SCH (08:54)
[2018-05-29] MEDS: Furosemide IV* 10 MG/ML 2 ML VIAL (20 MG) IV SLOW PU SCH (08:54)
[2018-05-29] MEDS: Pantoprazole TAB * 40 MG TAB PO SCH ×2 (08:54→20:30)
[2018-05-29] MEDS: Multivitamins/Minerals TAB PO SCH (08:54)
[2018-05-29] MEDS: predniSONE TAB* 20 MG PO SCH (08:54)
[2018-05-29] MEDS: guaiFENesin ER TAB 600 MG PO SCH ×2 (08:54→20:30)
[2018-05-29] MEDS: Metoprolol Succinate XL TAB* 25 MG PO SCH (08:54)
[2018-05-29] MEDS: Finasteride TAB* 5 MG PO SCH (08:54)
[2018-05-29] MEDS: Aspirin EC TAB* 81 MG TAB.EC PO SCH (08:54)
[2018-05-29] MEDS: oxyCODONE SR TAB(*) 15 MG TAB.SR PO SCH ×2 (09:05→20:30)
[2018-05-29] MEDS: Lidocaine PATCH 5%* 1 PATCH TRANSDERM SCH (09:10)
[2018-05-29] MEDS ORDERED: acetaZOLAMIDE TAB* 250 MG PO ONE (15:54)
[2018-05-29] MEDS ORDERED: oxyCODONE TAB* 5 MG TAB PO PRN (16:04)
[2018-05-29] MEDS: Lidocaine Patch REMOVE* 1 NOTE MISC PATCH OFF SCH (20:30)
--- NOTE | 2018-05-29 20:39 | PN ---
Subjective Date of Service: 05/29/18 Interval History: awake, alert. complaining of increase pain. s/p CAT call last night for opiate overdose required narcan. I explained to patient in the room at bedside the risk of opiate and respiratory suppression espescially in his case. reluctantly he agreed for to me to have his percocet decrease to half tab prn. I educated and demonstrated to him at bedside the proper use of the incentive spirometer and pulmonary toileting Past Medical History: Unchanged from Admission Objective Active Medications: Acetaminophen (Tylenol Tab*) 650 mg PO Q6H PRN PRN Reason: FEVER/PAIN Last Admin: 05/26/18 20:43 Dose: 650 mg Acetazolamide (Diamox Tab*) 250 mg PO BID [facility] Albuterol (Ventolin 2.5 Mg/3 Ml Neb.Damaris*) 2.5 mg INH Q2H PRN PRN Reason: SOB/WHEEZING Last Admin: 05/27/18 21:56 Dose: 2.5 mg Albuterol/Ipratropium (Duoneb (Albuterol 2.5 Mg/Ipratropium 0.5 Mg)) 1 neb INH [id number] AWAKE PRN PRN Reason: SOB/WHEEZING Last Admin: 05/29/18 14:11 Dose: 1 neb Aspirin (Aspirin Ec Tab*) 81 mg PO DAILY [facility] Last Admin: 05/29/18 08:54 Dose: 81 mg Benzonatate (Tessalon Cap*) 100 mg PO BID PRN PRN Reason: COUGH Calcium Carbonate (Tums*) 500 mg PO Q4H PRN PRN Reason: HEARTBURN Last Admin: 05/27/18 23:17 Dose: 500 mg Docusate Sodium (Colace Cap*) 100 mg PO BID PRN PRN Reason: CONSTIPATION Last Admin: 05/26/18 11:14 Dose: 100 mg Escitalopram Oxalate (Lexapro (Nf)) 20 mg PO DAILY [facility] Last Admin: 05/29/18 08:54 Dose: 20 mg Finasteride (Proscar Tab*) 5 mg PO DAILY [facility]; Protocol Last Admin: 05/29/18 08:54 Dose: 5 mg Guaifenesin (Mucinex*) 1,200 mg PO BID [facility] Last Admin: 05/29/18 20:30 Dose: 1,200 mg Heparin Sodium (Porcine) (Heparin Vial(*)) 5,000 units SUBCUT Q12H [facility] Last Admin: 05/29/18 17:27 Dose: 5,000 units Levofloxacin/Dextrose (Levaquin 500 Mg Ivpremix(*)) 500 mg in 100 mls @ 100 mls /hr IVPB Q24H [facility] Last Admin: 05/29/18 05:49 Dose: 100 mls/hr Lidocaine (Lidoderm 5% Patch*) 1 patch TRANSDERM DAILY [facility] Last Admin: 05/29/18 09:10 Dose: Not Given Meclizine HCl (Antivert Tab*) 12.5 mg PO TID PRN PRN Reason: DIZZINESS Metoprolol Succinate (Toprol Xl Tab*) 25 mg PO DAILY [facility] Last Admin: 05/29/18 08:54 Dose: 25 mg Mometasone Furoate/Formoterol Fumar (Dulera 200/5 Mdi*) 2 puff INH Q12H [facility] Last Admin: 05/29/18 08:18 Dose: 2 puff Multivitamins/Minerals (Theragran/Minerals Tab*) 1 tab PO DAILY [facility] Last Admin: 05/29/18 08:54 Dose: 1 tab Naloxone HCl (Narcan*) 0.2 mg IV PUSH Q2M PRN PRN Reason: BEHAVIOR Last Admin: 05/29/18 03:26 Dose: 0.2 mg Ondansetron HCl (Zofran Inj*) 4 mg IV Q6H PRN PRN Reason: NAUSEA Last Admin: 05/29/18 20:30 Dose: 4 mg Oxycodone HCl (Oxycontin(*)) 15 mg PO Q12HR [facility] Last Admin: 05/29/18 20:30 Dose: 15 mg Oxycodone HCl (Roxycodone Tab*) 2.5 mg PO Q6H PRN PRN Reason: PAIN Pantoprazole Sodium (Protonix Tab*) 40 mg PO BID [facility] Last Admin: 05/29/18 20:30 Dose: 40 mg Pharmacy Profile Note (Lidocaine Patch Remove*) 1 note PATCH OFF 2100 [facility] Last Admin: 05/29/18 20:30 Dose: 1 note Prednisone (Deltasone Tab*) 40 mg PO DAILY [facility] Last Admin: 05/29/18 08:54 Dose: 40 mg Senna (Senokot Tab*) 1 tab PO DAILY PRN PRN Reason: CONSTIPATION Last Admin: 05/26/18 11:14 Dose: 1 tab Vital Signs - 8 hr 05/29/18 05/29/18 05/29/18 14:19 15:53 16:31 Temperature 98.1 F Pulse Rate 62 Respiratory 20 16 20 Rate Blood Pressure 105/47 (mmHg) O2 Sat by Pulse 93 Oximetry 05/29/18 20:30 Temperature Pulse Rate Respiratory 16 Rate Blood Pressure (mmHg) O2 Sat by Pulse Oximetry Oxygen Devices in Use Now: Nasal Cannula Appearance: awake, alert. no distress Eyes: No Scleral Icterus, PERRLA Ears/Nose/Mouth/Throat: NL Teeth, Lips, Gums, Clear Oropharnyx Neck: NL Appearance and Movements; NL JVP, Trachea Midline Respiratory: Symmetrical Chest Expansion and Respiratory Effort, Clear to Auscultation Cardiovascular: NL Sounds; No Murmurs; No JVD Abdominal: NL Sounds; No Tenderness; No Distention Extremities: - - + 2edema Neurological: Alert and Oriented x 3 Result Diagrams: 05/29/18 03:40 05/29/18 03:40 Microbiology and Other Data: Microbiology 05/24/18 09:58 Aerobic Blood Culture - Preliminary Blood Venous No Growth Day 1 Anaerobic Blood Culture - Preliminary No Growth Day 1 05/24/18 09:25 Aerobic Blood Culture - Preliminary Blood Venous No Growth Day 1 Anaerobic Blood Culture - Preliminary No Growth Day 1 05/24/18 09:20 Urine Culture - Final Urine No Growth (<1,000 CFU/mL) 05/24/18 14:50 Nasal Screen MRSA (PCR) - Final Nasal Mrsa Not Detected 05/24/18 09:50 Influenza Types A,B Antigen - Final Nasal Specimen received for Influenza A/B Molecular testing Assess/Plan/Problems-Billing Assessment: Patient is a 78yo male with a PMH for COPD, CAD, INDIGO, CVA and Chronic Hypercarbic Respiratory failure who is admitted with acute hypoxic respiratory failure after being diagnosed with Flu A and is stable on nasal canula now ( weaned off Vapotherm), but is retaining more CO2 due to opiate . - Patient Problems (1) Altered mental status Current Visit: No Status: Acute Code(s): R41.82 - ALTERED MENTAL STATUS, UNSPECIFIED SNOMED Code(s): 699882512 Comment: - Last night he did have CAT call required Narcan due to opiate overdose - I will decrease his percocet to half tab Q 4hrs (2) CAD (coronary artery disease) Current Visit: No Status: Acute Code(s): I25.10 - ATHSCL HEART DISEASE OF [place] CORONARY ARTERY W/O ANG PCTRS SNOMED Code(s): 73608563 Comment: - continue ASA to 81 mg -Continue Metoprolol (3) COPD (chronic obstructive pulmonary disease) Current Visit: No Status: Acute Code(s): J44.9 - CHRONIC OBSTRUCTIVE PULMONARY DISEASE, UNSPECIFIED SNOMED Code(s): 63552133 Comment: - In acute exacerbation due to flu A - Continue inhalers and PRN albuterol. - Continue Steroids and levaquin - On nasal canula off the vapotherm - I will discontinue his lasix and place him on diamox to stimulate his respiratory drive (4) Obstructive sleep apnea on CPAP Current Visit: No Status: Chronic Code(s): G47.33 - OBSTRUCTIVE SLEEP APNEA (ADULT) (PEDIATRIC) SNOMED Code(s): 63956686 Comment: -Continue CPAP (5) DVT prophylaxis Current Visit: No Status: Acute Code(s): CVW8073 - SNOMED Code(s): 660794112 Comment: -Changed Heparin to q12H Status and Disposition: -For PT to re-eval in AM -For ambulatory sats in AM
[2018-05-29] MEDS ORDERED: acetaZOLAMIDE TAB* 250 MG PO SCH (21:00)
[2018-05-30] MEDS: Levofloxacin 500 MG IVPREMIX(* 500 MG/100 ML BAG IVPB SCH (05:38)
[2018-05-30] MEDS: Heparin VIAL(*) 5000 UNITS/ML VIAL (FIVE THOUSAND) SUBCUT SCH (05:38)
[2018-05-30 07:35] LABS: ABS Basophils 0 10^3/ul (0-0.2); ABS Eosinophils 0.1 10^3/ul (0-0.6); ABS Lymphocytes 2.2 10^3/ul (1.0-4.8); ABS Neutrophils 5.6 10^3/ul (1.5-7.7); ABS Nucleated RBC 0 10^3/ul; Eosinophil % 0.6 %; Hematocrit 38 % (42-52); Hemoglobin 12.3 g/dl (14.0-18.0); Lymphocyte % 24.8 %; Mean Corpuscular HGB Conc 33 g/dl (31-36); Mean Corpuscular Hemoglobin 32 pg (27-31); Mean Corpuscular Volume 97 fL (80-94); Nucleated Red Blood Cells % 0; Platelet Count 154 10^3/ul (150-450); Red Blood Count 3.87 10^6/ul (4.00-5.40); Red Cell Distribution Width 14 % (10.5-15); White Blood Count 8.9 10^3/ul (3.5-10.8)
[2018-05-30] MEDS: Mometasone/Formoter 200/5 MDI INH SCH (07:44)
[2018-05-30 07:45] LABS: BUN/Creatinine Ratio 25.4 (8-20); Calcium 8.8 mg/dL (8.6-10.3); EGFR African American 139.5 (>60); EGFR Non-African American 115.3 (>60); Magnesium 2.1 mg/dL (1.9-2.7); Phosphorus 3.6 mg/dL (2.5-5.0); Potassium 3.7 mmol/L (3.5-5.0)
[2018-05-30 08:34] VITALS: BP 125/61
[2018-05-30] MEDS: Pantoprazole TAB * 40 MG TAB PO SCH (08:34)
[2018-05-30] MEDS: Metoprolol Succinate XL TAB* 25 MG PO SCH (08:34)
[2018-05-30] MEDS: guaiFENesin ER TAB 600 MG PO SCH (08:34)
[2018-05-30] MEDS: Finasteride TAB* 5 MG PO SCH (08:34)
[2018-05-30] MEDS: predniSONE TAB* 20 MG PO SCH (08:34)
[2018-05-30] MEDS: Aspirin EC TAB* 81 MG TAB.EC PO SCH (08:34)
[2018-05-30] MEDS: CMCS:Escitalopram (NF) 10 MG TAB PO SCH (08:34)
[2018-05-30] MEDS: oxyCODONE SR TAB(*) 15 MG TAB.SR PO SCH (08:34)
[2018-05-30] MEDS: Multivitamins/Minerals TAB PO SCH (08:34)
[2018-05-30] MEDS: Lidocaine PATCH 5%* 1 PATCH TRANSDERM SCH (08:35)
[2018-05-30] MEDS ORDERED: acetaZOLAMIDE TAB* 250 MG PO SCH (09:00)
--- NOTE | 2018-05-30 13:46 | DS ---
CC: Dr. Paz * DISCHARGE SUMMARY: DATE OF ADMISSION: 05/24/18 DATE OF DISCHARGE: 05/30/18 PRIMARY CARE PROVIDER: Dr. Paz. FINAL DISCHARGE DIAGNOSES: 1. Altered mental status secondary to opiate overdose and oversedation leading to CO2 narcosis. 2. Chronic obstructive pulmonary disease exacerbation in the setting of recent influenza A. 3. Coronary artery disease. 4. Obstructive sleep apnea, on CPAP, noncompliant. 5. History of gastroesophageal reflux disease. 6. History of chronic back pain. 7. History of benign prostatic hypertrophy with self-catheterization. HOSPITAL COURSE: The patient admitted on 05/24/18 for shortness of breath and malaise for 3 days. Associated with shortness of breath, productive cough, muscle ache, and malaise associated with increased leg edema. Admitted for being noncompliant with his CPAP at home as it was affecting his left eye. While in the emergency room, he was hypoxic with 86% saturation. He was placed on Vapotherm. He declined rescue BiPAP in the ER. In the ER, he was noted to have temperature of 98.6 normal, saturation improved to 95% with high flow FiO2. His initial diagnostic workup revealed fairly stable ABG with pH 7.38, pCO2 of 62, bicarb 32, normal lactic acid. He was tested positive for influenza A and his chest x-ray showed bilateral interstitial markings suggestive of either pulmonary edema or bronchial pneumonia. He was started on high flow oxygen, admitted to ICU for his oxygen demand due to his acute respiratory failure, and he was started on Tamiflu as well as doxycycline and steroid. Echocardiogram was done on 05/24/18. It did reveal fairly preserved left ventricular systolic function with 55% to 60%. There was nondiagnostic diastolic dysfunction and it was a very limited study due to body habitus. However, his chest x-ray did reveal cardiomegaly, prominent interstitial marking , with a BNP of 255. He was placed of course on diuretic, Lasix IV was given, and was treated for acute diastolic heart failure. Throughout the hospital course, his event went unremarkable until a CAD call on 05/29/18 around 4 o' clock in the morning where the patient was unresponsive, hypoxic. He did require Narcan, which reversed his sedation. He became more awake after 10 minutes, restored his baseline respiratory status. I did see him for initial visit on 05/29/18 as my initial consultation with the patient. He did have tremendous amount of oral secretion. I did irrigate him and treat him with bedside pulmonary toileting, incentive spirometer, deep coughing, and expectoration. I discussed with him the need to discontinue his short acting and taper him off the Percocet, which he was taking here q.6 hours and in light of his hypercapnia and elevated bicarb, I did put him on Diamox with the hope to stimulate respiratory drive. I did indicate him to discuss with his primary if it is proper for usp as it does require monitoring of his bicarb as an outpatient. Nonetheless, I started him as an inpatient. He tolerated it well. I will give him only for 1-week supply while holding his Lasix. He was seen again today by me. He is more awake, alert. He was sitting at the edge of the bed, eating ice cream. He was coughing, using the incentive spirometer as educated, eager to go home. Saturation today is at 98% on 2 L, afebrile. After seeing and evaluated the patient, I deemed him stable for discharge home as the instruction below. MEDICATIONS: 1. Albuterol every 4 hours nebulizer as needed, alternating with the MDI. 2. Amlodipine 2.5 daily. 3. Aspirin 325 daily. 4. Avodart 0.5 mg daily. 5. Advair 250/50 one puff twice a day. 6. He also has vilanterol with fluticasone 1 puff daily. Patient unable to tell me which one he is on. I indicated to use only 1 of the 2 unless instructed otherwise by his PCP. 7. Antivert 12.5 daily. 8. Mobic 15 daily. 9. Mineral oil 1 tablet daily. 10. Omeprazole 20 b.i.d. 11. Zofran p.r.n. 12. Oxycodone 15 mg q.12 hours. 13. Diamox 250 mg b.i.d. for 1 week, to be discontinued unless instructed otherwise by PCP and then to resume his home Lasix at 20 to 40 mg daily as instructed by primary care provider p.r.n. basis on pedal edema. 14. Tums. 15. Colace. 16. Lexapro 20 daily. 17. Mucinex 1200 b.i.d. 18. Lactulose 15 cc b.i.d. 19. Levaquin 500 mg daily for 5 more days. 20. Lidocaine patch. 21. Toprol-XL 25 mg daily was decreased from 50 due to bradycardia when he was in 50s. 22. Potassium 20 mEq daily. 23. Prednisone 40 mg for 4 days, 20 mg for 4 days, and 10 mg for 4 days. DISCHARGE INSTRUCTIONS: 1. Take all medications as prescribed. 2. Finish the Diamox for 1 week and do not start the Lasix until you are done with the Diamox. 3. To utilize either the Advair or the fluticasone with vilanterol. 4. Avoid taking excessively the narcotic. 5. Pulmonary toileting, aggressively ambulating. To comply with the CPAP at home. Total time spent on discharge 35 mins [id number]/CPS #: [id number] [facility]
== END 2018-05-30 13:45 | disposition home or self-care (01) | DRG 193 ==
LOC: ED 08:52 → ICU 11:41 → MEDTELE 05-27 13:48
PROVIDERS: ADMIT Internal Medicine; ATTEND Internal Medicine
PROC: 0T9B70Z Drainage of Bladder with Drainage Device, Via Natural or Artificial Opening (ICD-10-PCS; principal; 2018-05-24)
DX: J10.00 Influenza due to other identified influenza virus with unspecified type of pneumonia (principal); J96.21 Acute and chronic respiratory failure with hypoxia; I50.31 Acute diastolic (congestive) heart failure; J96.22 Acute and chronic respiratory failure with hypercapnia; J44.0 Chronic obstructive pulmonary disease with (acute) lower respiratory infection; J44.1 Chronic obstructive pulmonary disease with (acute) exacerbation; I48.92 Unspecified atrial flutter; J81.1 Chronic pulmonary edema; E87.3 Alkalosis; K21.9 Gastro-esophageal reflux disease without esophagitis; G89.29 Other chronic pain; M54.9 Dorsalgia, unspecified; I25.10 Atherosclerotic heart disease of native coronary artery without angina pectoris; K57.90 Diverticulosis of intestine, part unspecified, without perforation or abscess without bleeding; K44.9 Diaphragmatic hernia without obstruction or gangrene; M19.012 Primary osteoarthritis, left shoulder; M46.90 Unspecified inflammatory spondylopathy, site unspecified; G43.909 Migraine, unspecified, not intractable, without status migrainosus; F32.9 Major depressive disorder, single episode, unspecified; Z96.643 Presence of artificial hip joint, bilateral; I44.7 Left bundle-branch block, unspecified; I44.0 Atrioventricular block, first degree; G47.33 Obstructive sleep apnea (adult) (pediatric); R42 Dizziness and giddiness; R33.9 Retention of urine, unspecified; E66.9 Obesity, unspecified; I11.0 Hypertensive heart disease with heart failure; N40.1 Benign prostatic hyperplasia with lower urinary tract symptoms; Z90.49 Acquired absence of other specified parts of digestive tract; Z82.49 Family history of ischemic heart disease and other diseases of the circulatory system; Z99.81 Dependence on supplemental oxygen; Z91.19 Patient's noncompliance with other medical treatment and regimen; Z83.3 Family history of diabetes mellitus; Z91.81 History of falling; Z68.34 Body mass index [BMI] 34.0-34.9, adult; Z86.73 Personal history of transient ischemic attack (TIA), and cerebral infarction without residual deficits; Z91.041 Radiographic dye allergy status; Z83.79 Family history of other diseases of the digestive system; Z79.82 Long term (current) use of aspirin; T40.601A Poisoning by unspecified narcotics, accidental (unintentional), initial encounter; R41.82 Altered mental status, unspecified; Y92.239 Unspecified place in hospital as the place of occurrence of the external cause
CPT/HCPCS: 36415; 36600; 71045; 80048; 80053; 81003; 81015; 82550; 82553; 82803; 83605; 83735; 83880; 84100; 84436; 84443; 84484; 85025; 85379; 85610; 85730; 87040; 87086; 87641; 93005; 93306; 94640; 99283; A9270-GY; C8929; G8978-GP-CK; G8979-GP-CI; J1644; J1940; J1956; J2310; J2405; J2920; J3475; J7512

== ENCOUNTER 2018-07-05 14:25 | Inpatient (IN) | payer MEDICARE ==
[2018-07-05 15:05] LABS: ABS Basophils 0 10^3/ul (0-0.2); ABS Eosinophils 0.3 10^3/ul (0-0.6); ABS Lymphocytes 1.4 10^3/ul (1.0-4.8); ABS Neutrophils 6.1 10^3/ul (1.5-7.7); ABS Nucleated RBC 0 10^3/ul; Eosinophil % 3.8 %; Hematocrit 38 % (36-46); Hemoglobin 12.3 g/dL (14.0-18.0); Lymphocyte % 16.2 %; Mean Corpuscular HGB Conc 32 g/dL (31-36); Mean Corpuscular Hemoglobin 32 pg (27-31); Mean Corpuscular Volume 97 fL (80-94); Mean Platelet Volume 7.2 fL (7.4-10.4); Nucleated Red Blood Cells % 0; Platelet Count 223 10^3/uL (150-450); Red Blood Count 3.91 10^6 /uL (4.18-5.48); Red Cell Distribution Width 14 % (10.5-15); White Blood Count 8.8 10^3/uL (3.5-10.8)
[2018-07-05 15:23] LABS: Albumin 3.2 g/dL (3.2-5.2); Albumin/Globulin Ratio 1.1 (1-3); BUN/Creatinine Ratio 23.3 (8-20); Calcium 8.6 mg/dL (8.6-10.3); EGFR African American 158.5 (>60); Globulin 2.9 g/dL (2-4); Potassium 4.1 mmol/L (3.5-5.0); Total Bilirubin 0.6 mg/dL (0.2-1.0); Total Protein 6.1 g/dL (6.4-8.9)
[2018-07-05 15:24] LABS: Troponin I 0.02 ng/mL (<0.04)
[2018-07-05 15:31] LABS: Activated Partial Thrombo Time 28.9 seconds (26.0-36.3); INR 0.94 (0.77-1.02)
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
[2018-07-05] MEDS ORDERED: cefTRIAXone(*) 1 GM in NS 0.9% 50 ML* 50 ML IVPB ONE (15:55)
[2018-07-05 16:02] LABS: Urine Appearance Cloudy; Urine Bacteria 1+ (Absent); Urine Bilirubin Negative (Negative); Urine Blood 2+ (Negative); Urine Color Yellow; Urine Glucose Negative (Negative); Urine Ketones Negative (Negative); Urine Nitrite Negative (Negative); Urine Protein Negative (Negative); Urine Red Blood Cell 2+(6-10/hpf) (Absent); Urine Specific Gravity 1.006 (1.010-1.030); Urine Urobilinogen Negative (Negative); Urine White Blood Cell 3+(>20/hpf) (Absent)
[2018-07-05] MEDS: NS 0.9% 1000 ML** 3,000 ML IV ONE ×2 (16:25→18:01)
[2018-07-05] MEDS ORDERED: Metoclopramide IV* 5 MG/ML 2 ML VIAL IV SLOW PU ONE (16:31)
[2018-07-05] MEDS ORDERED: Ketorolac INJ* 30 MG/ML 1 ML VIAL IV PUSH ONE (18:23)
[2018-07-05] MEDS ORDERED: Azithromycin 500 mg/250 ml 500 MG/250 ML PREMIX.SET IVPB ONE (18:43)
[2018-07-05] MEDS ORDERED: Azithromycin IV(*) 500 MG in NS 0.9% 250 ML* 250 ML IVPB ONE (19:20)
[2018-07-05] MEDS ORDERED: Diltiazem IV push/loading dose 5 MG/ML 5 ML vial (25 mg) ONE (19:34)
[2018-07-05] MEDS ORDERED: Diltiazem IV push/loading dose 5 MG/ML 5 ML vial (25 mg) IV SLOW PU ONE (19:36)
[2018-07-05] MEDS ORDERED: Albuterol/Ipratropium NEB.SOL* Albuterol 2.5 MG/Ipratropium 0.5 MG 3 ML ONE (19:39)
[2018-07-05] MEDS ORDERED: Albuterol 2.5 MG/3 ML NEB.SOL* (0.083%) INH ONE ×2 (19:39→20:06)
[2018-07-05 19:40] LABS: C Reactive Protein 11.22 mg/L (<8.01)
[2018-07-05] MEDS ORDERED: Furosemide IV* 10 MG/ML VIAL (40 MG) ONE (19:40)
[2018-07-05] MEDS: Furosemide IV* 10 MG/ML VIAL (40 MG) IV SLOW PU ONE ×2 (19:44→20:30)
[2018-07-05] MEDS ORDERED: Albuterol/Ipratropium NEB.SOL* Albuterol 2.5 MG/Ipratropium 0.5 MG 3 ML INH ONE (20:05)
[2018-07-05] MEDS ORDERED: Al Hydrox/Mg Hydrox/Simet LIQ* 30 ML UDC PO PRN (20:10)
[2018-07-05] MEDS ORDERED: guaiFENesin ER TAB 600 MG PO PRN (20:13)
[2018-07-05] MEDS ORDERED: Ondansetron ODT TAB* 4 MG PO PRN (20:13)
[2018-07-05] MEDS ORDERED: Calcium Carbonate CHEW TAB* 500 MG (TUMS) PO PRN (20:13)
[2018-07-05] MEDS ORDERED: Albuterol/Ipratropium NEB.SOL* Albuterol 2.5 MG/Ipratropium 0.5 MG 3 ML INH PRN (20:51)
[2018-07-05] MEDS ORDERED: Ketorolac INJ* 15 MG/ML 1 ML VIAL IV PUSH PRN (20:51)
[2018-07-05] MEDS: Pantoprazole TAB * 40 MG TAB PO SCH (22:59)
[2018-07-05] MEDS: Heparin VIAL(*) 5000 UNITS/ML VIAL (FIVE THOUSAND) SUBCUT SCH (22:59)
[2018-07-05] MEDS ORDERED: Acetaminophen TAB* 325 MG PO PRN (23:23)
--- NOTE | 2018-07-05 23:37 | HP ---
CC: Dr. Royal Paz * HISTORY AND PHYSICAL: DATE OF ADMISSION: 07/05/18 CHIEF COMPLAINT: Falls. HISTORY OF PRESENT ILLNESS: This is a 78-year-old man with a history of COPD, INDIGO, and chronic pain syndrome who presented to the emergency department with several falls this week. The history is mostly provided by his , Rekha, due to drowsiness. Rekha reports that on Sunday Familia fell trying to get out of his recliner, but declined coming to the ED at that time and then again this evening he was trying to get out of his recliner and he stumbled again. She called EMS and he was brought to the emergency department. She also relates that he has been more sleepy than usual over the past week, however, she does note that he has been in and out of these periods of sleepiness for a long time many months and his sleepiness and alertness have always waxed and waned, which she attributes mostly to his nonadherence with his nocturnal CPAP/BiPAP, he is not sure which one it is. She also notes that he takes oxycodone, which also makes him sleepy. She says he has not been complaining of anything in particular. He has not been complaining of shortness of breath, chest pain. He has had some nausea, but his appetite has been okay. No diarrhea, vomiting, fevers, chills, weakness or an other unusual symptoms. He wears 4 L round the clock and this has not changed. She has not noticed any weight gain or weight loss. Familia states that he is feeling generally ill since he got to the emergency department, but does not offer any specific complaints. He denies chest pain, shortness of breath, nausea, fevers, headache, weakness, numbness or any other symptoms. He also has a neurogenic bladder and straight caths about 3 times a day. His relates that he is actually supposed to straight cath about 5 times a day, but he does not. In the emergency department, a Osorio catheter was placed and 1400 cc immediately drained. Initially in the emergency department, he met SIRS criteria with tachycardia and tachypnea. So, he was given 2 L of IV fluids and then he suddenly became tachycardiac, hypoxic, diaphoretic and a stat chest x-ray was obtained, which showed pulmonary edema and he received 20 mg of IV Cardizem and after the Cardizem, 40 mg of Lasix and Osorio catheter insertion. He is resting much more comfortably. PAST MEDICAL HISTORY: Chronic hypoxic respiratory failure, on 4 L round the clock; neurogenic bladder with intermittent straight catheterization; obstructive sleep apnea, not usually wearing his CPAP; coronary artery disease; GERD; chronic pain syndrome; history of a left arm AV malformation. PAST SURGICAL HISTORY: He has had bilateral hip replacements, a cholecystectomy , a tonsillectomy and an AVM repair. HOME MEDICATIONS: This list is taken from his discharge summary on 05/30/18. 1. Albuterol nebulizer every 4 hours as needed. 2. Amlodipine 2.5 mg daily. 3. Aspirin 325 mg daily. 4. Avodart 0.5 mg daily. 5. Advair 250/50 one puff inhaled daily. 6. Fluticasone 1 puff daily. 7. Antivert 12.5 mg daily. 8. Mobic 15 mg daily. 9. Mineral oil 1 tablet daily. 10. Omeprazole 20 mg b.i.d. 11. Zofran 4 mg q.6 p.r.n. nausea. 12. Oxycodone 50 mg q.12. This is a sustained-release formulation. 13. Lasix 40 mg daily. 14. Lexapro 20 mg daily. 15. Mucinex 1200 mg b.i.d. 16. Lactulose 15 cc b.i.d. 17. Lidocaine patch 1 patch transdermally daily. 18. Toprol XL 25 mg daily. 19. KCL 20 mEq daily. SOCIAL HISTORY: He is never a smoker and he lives at home with his , Rekha , who is his healthcare proxy. REVIEW OF SYSTEMS: As per the HPI. Remainder of the 14-point review of systems is negative. PHYSICAL EXAMINATION GENERAL: Drowsy elderly man, who is in no distress. He is on the BiPAP and breathing comfortably. He is alert to voice and answers my questions appropriately, but dozes off through my conversation. When awake, he follows all commands appropriately. VITAL SIGNS: Temperature 98.3, heart rate 95, respiratory rate 20, pulse ox 96 % on BiPAP at 60% FiO2 and blood pressure 170/92. HEENT: Pupils are 3 mm bilaterally and reactive to light. Oral mucosa is moist. NECK: Unable to appreciate JVP, but he is sitting at 90 degrees, no adenopathy. CHEST: He is in a regular rate and rhythm with no murmurs. His lungs have crackles bilaterally midway up bilateral lung vasquez with no wheezes or rhonchi. ABDOMEN: Obese, soft, nontender and nondistended. He has no guarding or rebound. A Osorio catheter is in place and draining clear yellow urine. EXTREMITIES: He has 3+ pitting edema to the knees. NEUROLOGIC: His strength is 5/5 in all extremities. He has no nystagmus. He is oriented to person, place and time. LABORATORY DATA: White blood cells 8.8, hemoglobin 12.3, platelets 223. INR is 0.94. AB.31/75/106/32. Sodium 142, potassium 4.1, chloride 101, bicarb 37, creatinine 0.60, glucose 101. Lactic acid 0.5, calcium 8.6, CRP 11, BNP 214. Urinalysis shows 3+ leuk esterase, 3+ white blood cells, 2+ red blood cells and 1+ bacteria. IMAGING: Chest, abdomen and pelvis CT shows right upper and lower lobe infiltrates adjacent to the right hilum and left lobe infiltrate. Recommend followup chest x- rays to resolution to exclude underlying neoplastic process. No evidence of acute findings in the abdomen or pelvis, status post total bilateral hip replacement surgery causing artifact limiting evaluation of the bones of the pelvis and hips, although no fracture is seen, enlargement of the pulmonary artery suggestive of pulmonary artery hypertension. Cervical spine CT shows no evidence for fracture or subluxation and mild to moderate cervical spondylosis and a brain CT shows stable chronic findings without CT apparent acute intracranial abnormality. Please note that there is stable density at the left basal ganglia with hemorrhage, which is reported to be unchanged from prior CTs. EKG shows AFib at 103, with an old left bundle branch block. There is another subsequent EKG that shows AFib with RVR at 142. ASSESSMENT AND PLAN: This is a 78-year-old man with history of obstructive sleep apnea, chronic obstructive pulmonary disease, chronic pain syndrome and chronic urinary retention, who presented to the emergency department with 2 falls in the last week. 1. Falls. This seems that it could be multifactorial and I am suspicious that it is related to acute on chronic hypercapnia, urinary tract infection and possibly volume overload as well. There are no acute neurologic findings to suspect a neurologic source. Cardiac source of his falls remains on the differential and we will trend his troponins and monitor him on telemetry. Otherwise, I would treat the other suspected causes as below. 2. Acute on chronic urinary retention: A Osorio catheter has been placed in the ED and we will monitor his I's and O's strictly. 3. Urinary tract infection: While it is difficult to interpret urinalysis in someone who straight caths, he also had urinalysis last time he was here, which was completely negative for leuk esterase and wbc's. So, given his presentation , I am going to continue treating it with ceftriaxone and culture his urine. 4. Acute on chronic hypercapnic respiratory failure: Again, this is likely also multifactorial and related to his CPAP nonadherence, his urinary tract infection and some obesity hypoventilation syndrome. He is currently on BiPAP in the emergency department and is comfortable on it and I suspect his PCO2 will come down appropriately with this. 5. Acute on chronic diastolic heart failure plus acute on chronic right ventricular failure: He has received 80 mg of IV Lasix in the emergency department. We will monitor his urine output and also check daily weights. 6. Chronic pain syndrome: I am holding his oxycodone while he is sedated. He can have p.r.n. morphine if he wakes up a little bit more and is continued on the BiPAP. 7. Chronic hypoxic respiratory failure, on 4 L of home O2: I do not believe that his chronic obstructive pulmonary disease is currently flared. I will order p.r.n. nebulizers. 8. Lung infiltrates concerning for neoplasm. This needs close follow up! I do not believe this is contributing to his presentation, but this needs to be followed up with serial imaging. 9. DVT prophylaxis: Heparin subcutaneous. 10. Diet: NPO while on BiPAP and drowsy. 11. Disposition: Admit to the ICU for BiPAP. 12. Code status: I discussed the possible need for intubation with Familia and his , Rekha. She admits that they have never discussed this, but she believes he would want to be intubated and would be full code at this time. [id number]/CPS #: [id number] MTDD
[2018-07-06 00:46] LABS: Troponin I 0.18 ng/mL (<0.04)
[2018-07-06 03:21] LABS: ABS Basophils 0 10^3/ul (0-0.2); ABS Eosinophils 0.1 10^3/ul (0-0.6); ABS Lymphocytes 1.3 10^3/ul (1.0-4.8); ABS Monocytes 1.2 10^3/ul (0-0.8); ABS Neutrophils 7.2 10^3/ul (1.5-7.7); ABS Nucleated RBC 0 10^3/ul; Eosinophil % 0.7 %; Hematocrit 35 % (36-46); Hemoglobin 11.5 g/dL (14.0-18.0); Lymphocyte % 13.6 %; Mean Corpuscular HGB Conc 33 g/dL (31-36); Mean Corpuscular Hemoglobin 32 pg (27-31); Mean Corpuscular Volume 98 fL (80-94); Mean Platelet Volume 8.2 fL (7.4-10.4); Nucleated Red Blood Cells % 0; Platelet Count 211 10^3/uL (150-450); Red Cell Distribution Width 14 % (10.5-15); White Blood Count 9.9 10^3/uL (3.5-10.8)
[2018-07-06 03:37] LABS: ALT 17 U/L (7-52); AST 25 U/L (13-39); Albumin 2.8 g/dL (3.2-5.2); Albumin/Globulin Ratio 1.2 (1-3); Alkaline Phosphatase 64 U/L (34-104); Anion Gap 5 mmol/L (2-11); BUN/Creatinine Ratio 21.4 (8-20); Blood Urea Nitrogen 12 mg/dL (6-24); CO2 Carbon Dioxide 38 mmol/L (22-32); Calcium 8.1 mg/dL (8.6-10.3); Chloride 100 mmol/L (101-111); EGFR African American 171.6 (>60); EGFR Non-African American 141.8 (>60); Globulin 2.4 g/dL (2-4); Glucose 92 mg/dL (70-100); Potassium 3.6 mmol/L (3.5-5.0); Sodium 143 mmol/L (135-145); Total Protein 5.2 g/dL (6.4-8.9)
[2018-07-06 03:41] LABS: Troponin I 0.25 ng/mL (<0.04)
[2018-07-06] MEDS: Heparin VIAL(*) 5000 UNITS/ML VIAL (FIVE THOUSAND) SUBCUT SCH ×3 (06:49→21:01)
[2018-07-06 08:10] LABS: Troponin I 0.15 ng/mL (<0.04)
--- NOTE | 2018-07-06 08:31 | ADMNOTE ---
Subjective Date of Service: 07/06/18 Interval History: C/O falls and neck pain. Review of Systems - Measurements Intake and Output: Intake and Output Last 24 Hours 07/04/18 07/05/18 07/06/18 07/07/18 06:59 06:59 06:59 06:59 Intake Total 2510 Output Total 3467 Balance -957 Weight 287 lb 7.355 oz Intake: IV Fluids 2270 Oral 240 Output: Urine 135 Ellison 3332 Objective Active Medications: Al Hydrox/Mg Hydrox/Simethicone (Maalox Plus*) 30 ml PO Q6H PRN PRN Reason: INDIGESTION Albuterol/Ipratropium (Duoneb (Albuterol 2.5 Mg/Ipratropium 0.5 Mg)) 1 neb INH Q2H PRN PRN Reason: SOB/WHEEZING Aspirin (Aspirin Tab*) 325 mg PO DAILY [facility] Calcium Carbonate (Tums*) 500 mg PO Q4H PRN PRN Reason: HEARTBURN Escitalopram Oxalate (Lexapro *) 20 mg PO DAILY [facility] Guaifenesin (Mucinex*) 1,200 mg PO BID PRN PRN Reason: CONGESTION Heparin Sodium (Porcine) (Heparin Vial(*)) 5,000 units SUBCUT Q8HR [facility] Last Admin: 07/06/18 06:49 Dose: 5,000 units Ceftriaxone Sodium 1 gm/ (Sodium Chloride) 50 mls @ 200 mls/hr IVPB Q24H [facility] Lidocaine (Lidoderm 5% Patch*) 1 patch TRANSDERM DAILY [facility] Metoprolol Succinate (Toprol Xl Tab*) 50 mg PO DAILY [facility] Multivitamins/Minerals (Theragran/Minerals Tab*) 1 tab PO DAILY [facility] Ondansetron HCl (Zofran Odt Tab*) 8 mg PO Q8H PRN PRN Reason: NAUSEA/VOMITING Oxycodone HCl (Oxycontin(*)) 15 mg PO Q12HR [facility] Oxycodone HCl (Roxycodone Tab*) 5 mg PO Q3H PRN PRN Reason: PAIN - UNRELIEVED Pantoprazole Sodium (Protonix Tab*) 40 mg PO BID [facility] Last Admin: 07/05/18 22:59 Dose: 40 mg Potassium Chloride (Klor Con Er Tab*) 20 meq PO DAILY [facility] Torsemide (Torsemide) 40 mg PO DAILY [facility] Vital Signs - 8 hr 07/06/18 07/06/18 07/06/18 00:31 00:45 01:00 Temperature Pulse Rate 111 95 96 Respiratory 27 27 32 Rate Blood Pressure 98/69 118/68 122/85 (mmHg) O2 Sat by Pulse 98 97 93 Oximetry 07/06/18 07/06/18 07/06/18 01:01 01:16 01:30 Temperature Pulse Rate 109 97 113 Respiratory 24 28 23 Rate Blood Pressure 107/66 108/94 (mmHg) O2 Sat by Pulse 92 98 Oximetry 07/06/18 07/06/18 07/06/18 01:45 02:00 02:01 Temperature Pulse Rate 110 105 Respiratory 25 21 17 Rate Blood Pressure 116/75 103/65 (mmHg) O2 Sat by Pulse 95 96 Oximetry 07/06/18 07/06/18 07/06/18 02:15 02:30 02:45 Temperature Pulse Rate 100 108 93 Respiratory 26 38 30 Rate Blood Pressure 126/68 118/82 111/77 (mmHg) O2 Sat by Pulse 99 98 96 Oximetry 07/06/18 07/06/18 07/06/18 03:00 03:01 03:16 Temperature Pulse Rate 89 96 97 Respiratory 25 35 24 Rate Blood Pressure 122/75 112/59 (mmHg) O2 Sat by Pulse 97 97 99 Oximetry 07/06/18 07/06/18 07/06/18 03:30 03:57 04:00 Temperature 98.6 F Pulse Rate 94 107 Respiratory 22 20 Rate Blood Pressure 106/76 118/73 (mmHg) O2 Sat by Pulse 99 99 Oximetry 07/06/18 07/06/18 07/06/18 04:15 04:21 04:30 Temperature Pulse Rate 106 98 101 Respiratory 28 18 18 Rate Blood Pressure 126/79 132/82 (mmHg) O2 Sat by Pulse 98 99 100 Oximetry 07/06/18 07/06/18 07/06/18 04:45 05:00 05:15 Temperature Pulse Rate 102 109 103 Respiratory 20 20 31 Rate Blood Pressure 116/70 110/79 121/73 (mmHg) O2 Sat by Pulse 98 99 97 Oximetry 07/06/18 07/06/18 07/06/18 05:30 05:46 06:00 Temperature Pulse Rate 106 103 101 Respiratory 28 27 18 Rate Blood Pressure 125/63 113/62 130/71 (mmHg) O2 Sat by Pulse 99 98 96 Oximetry 07/06/18 07/06/18 07/06/18 06:15 06:30 06:46 Temperature Pulse Rate 95 108 102 Respiratory 31 18 22 Rate Blood Pressure 127/102 108/82 124/87 (mmHg) O2 Sat by Pulse 96 98 98 Oximetry 07/06/18 07/06/18 07:00 07:01 Temperature Pulse Rate 88 100 Respiratory 17 18 Rate Blood Pressure 128/83 (mmHg) O2 Sat by Pulse 97 97 Oximetry Oxygen Devices in Use Now: BiPAP Appearance: Alert, partly up on ICU bed, BIPAP in place. In fair spirits. Looks comfortable but c/o neck pain. Ice pack on neck. Eyes: No Scleral Icterus Respiratory: Symmetrical Chest Expansion and Respiratory Effort, Clear to Auscultation, Clear to Percussion Cardiovascular: NL Sounds; No Murmurs; No JVD, No Edema, - - irreg Extremities: No Clubbing, Cyanosis, - - 1+ edema BL Skin: No Rash or Ulcers, No Nodules or Sclerosis, - Neurological: Alert and Oriented x 3, NL Sensation Result Diagrams: 07/06/18 03:00 07/06/18 03:00 Additional Lab and Data: Lab Results 07/05/18 07/05/18 07/05/18 Range/Units 14:52 14:52 14:52 WBC 8.8 (3.5-10.8) 10^3/uL RBC 3.91 L (4.18-5.48) 10^6 /uL Hgb 12.3 L (14.0-18.0) g/dL Hct 38 (36-46) % MCV 97 H (80-94) fL MCH 32 H (27-31) pg MCHC 32 (31-36) g/dL RDW 14 (10.5-15) % Plt Count 223 (150-450) 10^3/uL MPV 7.2 L (7.4-10.4) fL Neut % (Auto) 68.7 % Lymph % (Auto) 16.2 % Rooks % (Auto) 11.0 % Eos % (Auto) 3.8 % Baso % (Auto) 0.3 % Absolute Neuts (auto) 6.1 (1.5-7.7) 10^3/ul Absolute Lymphs (auto) 1.4 (1.0-4.8) 10^3/ul Absolute Monos (auto) 1.0 H (0-0.8) 10^3/ul Absolute Eos (auto) 0.3 (0-0.6) 10^3/ul Absolute Basos (auto) 0 (0-0.2) 10^3/ul Absolute Nucleated RBC 0 10^3/ul Nucleated RBC % 0 INR (Anticoag Therapy) 0.94 (0.77-1.02) APTT 28.9 (26.0-36.3) seconds Sodium 142 (135-145) mmol/L Potassium 4.1 (3.5-5.0) mmol/L Chloride 101 (101-111) mmol/L Carbon Dioxide 37 H (22-32) mmol/L Anion Gap 4 (2-11) mmol/L BUN 14 (6-24) mg/dL Creatinine 0.60 L (0.67-1.17) mg/dL Est GFR ( Amer) 158.5 (>60) Est GFR (Non-Af Amer) 131.0 (>60) BUN/Creatinine Ratio 23.3 H (8-20) Glucose 101 H (70-100) mg/dL Lactic Acid (0.5-2.0) mmol/L Calcium 8.6 (8.6-10.3) mg/dL Total Bilirubin 0.60 (0.2-1.0) mg/dL AST 18 (13-39) U/L ALT 16 (7-52) U/L Alkaline Phosphatase 70 (34-104) U/L Troponin I 0.02 (<0.04) ng/mL Total Protein 6.1 L (6.4-8.9) g/dL Albumin 3.2 (3.2-5.2) g/dL Globulin 2.9 (2-4) g/dL Albumin/Globulin Ratio 1.1 (1-3) 07/05/18 Range/Units 14:52 WBC (3.5-10.8) 10^3/uL RBC (4.18-5.48) 10^6 /uL Hgb (14.0-18.0) g/dL Hct (36-46) % MCV (80-94) fL MCH (27-31) pg MCHC (31-36) g/dL RDW (10.5-15) % Plt Count (150-450) 10^3/uL MPV (7.4-10.4) fL Neut % (Auto) % Lymph % (Auto) % Rooks % (Auto) % Eos % (Auto) % Baso % (Auto) % Absolute Neuts (auto) (1.5-7.7) 10^3/ul Absolute Lymphs (auto) (1.0-4.8) 10^3/ul Absolute Monos (auto) (0-0.8) 10^3/ul Absolute Eos (auto) (0-0.6) 10^3/ul Absolute Basos (auto) (0-0.2) 10^3/ul Absolute Nucleated RBC 10^3/ul Nucleated RBC % INR (Anticoag Therapy) (0.77-1.02) APTT (26.0-36.3) seconds Sodium (135-145) mmol/L Potassium (3.5-5.0) mmol/L Chloride (101-111) mmol/L Carbon Dioxide (22-32) mmol/L Anion Gap (2-11) mmol/L BUN (6-24) mg/dL Creatinine (0.67-1.17) mg/dL Est GFR ( Amer) (>60) Est GFR (Non-Af Amer) (>60) BUN/Creatinine Ratio (8-20) Glucose (70-100) mg/dL Lactic Acid 0.5 (0.5-2.0) mmol/L Calcium (8.6-10.3) mg/dL Total Bilirubin (0.2-1.0) mg/dL AST (13-39) U/L ALT (7-52) U/L Alkaline Phosphatase (34-104) U/L Troponin I (<0.04) ng/mL Total Protein (6.4-8.9) g/dL Albumin (3.2-5.2) g/dL Globulin (2-4) g/dL Albumin/Globulin Ratio (1-3) Microbiology and Other Data: Microbiology 07/06/18 00:00 Nasal Screen MRSA (PCR) - Final Nasal Mrsa Not Detected Assess/Plan/Problems-Billing Assessment: - Patient Problems (1) CHF (congestive heart failure) Current Visit: Yes Status: Acute Code(s): I50.9 - HEART FAILURE, UNSPECIFIED SNOMED Code(s): 56537212 Comment: Received 2 L NSS in ED 07/05. Good diuresis with IV furosemide. Listed as taking PRN furosemide at home, pt says it doesn't help. Start daily po torsemide 07/06. (2) Atrial fibrillation Current Visit: Yes Status: Acute Code(s): I48.91 - UNSPECIFIED ATRIAL FIBRILLATION SNOMED Code(s): 18325118 Comment: Echo ordered for 07/07. Likely will need chronic AC. Continue DVT dose heparin for now. Change metoprolol succinate to 75 mg daily. (3) Urinary retention Current Visit: No Status: Acute Code(s): R33.9 - RETENTION OF URINE, UNSPECIFIED SNOMED Code(s): 765568355 Comment: - Chronic, self catheterizes at home, follows with Dr. Cortez. - Continue ellison. ? was complying with Dr. Cortez's recommended frequency of self-cath at home. (4) Elevated troponin Current Visit: Yes Status: Acute Code(s): R74.8 - ABNORMAL LEVELS OF OTHER SERUM ENZYMES SNOMED Code(s): 356476225 Comment: Likely demand ischemia. Consider stress test 07/08. (5) COPD (chronic obstructive pulmonary disease) Current Visit: No Status: Acute Code(s): J44.9 - CHRONIC OBSTRUCTIVE PULMONARY DISEASE, UNSPECIFIED SNOMED Code(s): 34441877 Comment: - Continue inhalers and PRN albuterol. (6) Neck pain Current Visit: Yes Status: Acute Code(s): M54.2 - CERVICALGIA SNOMED Code( s): 06964294 Comment: Likely related to falls. CT C spine neg for fracture or dislocation. Continue analgesics. (7) Recurrent falls Current Visit: No Status: Acute Code(s): R29.6 - REPEATED FALLS SNOMED Code(s): 059195980 Comment: PT eval requested. (8) Chronic pain Current Visit: No Status: Acute Code(s): G89.29 - OTHER CHRONIC PAIN SNOMED Code(s): 85168675 Comment: Resume home dose oxycodone SR, also give PRN dose oxycodone IR.
[2018-07-06] MEDS ORDERED: Metoprolol Succinate XL TAB* 25 MG PO ONE (08:39)
--- NOTE | 2018-07-06 08:49 | PN ---
"Progress Note - Progress Note Date of Service: 07/06/18 Note: report was requested by: Ashok Abhay Grove | Reference #: [id number] My Prescriptions Patient Name: Familia Sethi Date: 1940 Address: [address] [place] [address] Sex: Male Rx Written Rx Dispensed Drug Quantity Days Supply Prescriber Name 01/14/2018 01/14/2018 tramadol hcl 50 mg tablet 60 30 Morris Grovedric Patient Name: Familia Sethi Date: 1940 Address: [address] [place] [address] Sex: Male Rx Written Rx Dispensed Drug Quantity Days Supply Prescriber Name 06/13/2018 06/21/2018 oxycontin er 15 mg tablet 60 30 Rhianna Morfin T 05/21/2018 05/22/2018 oxycontin er 15 mg tablet 60 30 Svetlana Morfinbeth T 04/10/2018 04/13/2018 oxycontin er 15 mg tablet 90 30 Juan Magana MD 02/12/2018 02/13/2018 oxycodone-acetaminophen 10-325 mg tab 120 30 [place] Foley 02/12/2018 02/13/2018 oxycontin er 15 mg tablet 120 30 [place] Foley 01/17/2018 01/18/2018 oxycodone-acetaminophen 7.5-325 mg tablet 120 30 Rhianna Morfin T 12/21/2017 12/22/2017 oxycontin er 15 mg tablet 120 30 Rhianna Morfin T 11/19/2017 11/23/2017 oxycontin er 15 mg tablet 120 30 Juan Magana MD 10/23/2017 10/23/2017 oxycontin 15 mg tablet 120 30 [place] Foley 09/20/2017 09/21/2017 oxycontin er 15 mg tablet 120 30 Rhianna Morfin T 09/11/2017 09/14/2017 oxycontin er 20 mg tablet 8 4 Kacie Allen 08/14/2017 08/16/2017 oxycontin er 15 mg tablet 120 30 [place] Foley 07/10/2017 07/17/2017 oxycontin er 15 mg tablet 120 30 [place] Foley"
[2018-07-06] MEDS ORDERED: Metoprolol Succinate XL TAB* 50 MG PO SCH (09:00)
[2018-07-06] MEDS: Aspirin TAB* 325 MG PO SCH (09:29)
[2018-07-06] MEDS: oxyCODONE SR TAB(*) 15 MG TAB.SR PO SCH ×2 (09:30→21:00)
[2018-07-06] MEDS: Multivitamins/Minerals TAB PO SCH (09:30)
[2018-07-06] MEDS: Escitalopram * 20 MG TABLET PO SCH (09:30)
[2018-07-06] MEDS: Metoprolol Succinate XL TAB* 25 MG PO SCH (09:30)
[2018-07-06] MEDS: Torsemide TAB 10 MG PO SCH (09:30)
[2018-07-06] MEDS: Pantoprazole TAB * 40 MG TAB PO SCH ×2 (09:31→21:01)
[2018-07-06] MEDS: oxyCODONE TAB* 5 MG TAB PO PRN ×3 (09:31→16:41)
[2018-07-06] MEDS: Potassium Chlor TAB* 20 MEQ TAB.ER PO SCH (09:31)
[2018-07-06] MEDS: Lidocaine PATCH 5%* 1 PATCH TRANSDERM SCH (10:25)
[2018-07-06] MEDS: Mometasone/Formoter 200/5 MDI INH SCH ×2 (12:29→20:27)
[2018-07-06] MEDS: cefTRIAXone(*) 1 GM in NS 0.9% 50 ML* 50 ML IVPB SCH (16:41)
[2018-07-06] MEDS ORDERED: Furosemide IV* 10 MG/ML VIAL (40 MG) IV ONE (19:45)
[2018-07-06] MEDS: Acetaminophen TAB* 325 MG PO PRN (21:00)
[2018-07-07] MEDS: Acetaminophen TAB* 325 MG PO PRN ×3 (03:59→20:53)
[2018-07-07] MEDS: Heparin VIAL(*) 5000 UNITS/ML VIAL (FIVE THOUSAND) SUBCUT SCH ×3 (05:45→20:55)
[2018-07-07] MEDS: Mometasone/Formoter 200/5 MDI INH SCH ×2 (08:09→19:46)
[2018-07-07] MEDS: Metoprolol Succinate XL TAB* 25 MG PO SCH (08:14)
[2018-07-07] MEDS: Lidocaine PATCH 5%* 1 PATCH TRANSDERM SCH (08:14)
[2018-07-07] MEDS: Aspirin TAB* 325 MG PO SCH (08:14)
[2018-07-07] MEDS: oxyCODONE SR TAB(*) 15 MG TAB.SR PO SCH ×2 (08:15→20:52)
[2018-07-07] MEDS: Multivitamins/Minerals TAB PO SCH (08:15)
[2018-07-07] MEDS: Escitalopram * 20 MG TABLET PO SCH (08:15)
[2018-07-07] MEDS: Potassium Chlor TAB* 20 MEQ TAB.ER PO SCH (08:15)
[2018-07-07] MEDS: Torsemide TAB 10 MG PO SCH (08:15)
[2018-07-07] MEDS: Pantoprazole TAB * 40 MG TAB PO SCH ×2 (08:15→20:52)
[2018-07-07 08:59] LABS: BUN/Creatinine Ratio 24.6 (8-20); Calcium 8.5 mg/dL (8.6-10.3); EGFR African American 168.2 (>60); Potassium 3.4 mmol/L (3.5-5.0)
--- NOTE | 2018-07-07 09:28 | PN ---
Subjective Date of Service: 07/07/18 Interval History: C/O headache and neck pain. Objective Active Medications: Acetaminophen (Tylenol Tab*) 650 mg PO Q6H PRN PRN Reason: PAIN Last Admin: 07/07/18 03:59 Dose: 650 mg Al Hydrox/Mg Hydrox/Simethicone (Maalox Plus*) 30 ml PO Q6H PRN PRN Reason: INDIGESTION Albuterol/Ipratropium (Duoneb (Albuterol 2.5 Mg/Ipratropium 0.5 Mg)) 1 neb INH Q2H PRN PRN Reason: SOB/WHEEZING Aspirin (Aspirin Tab*) 325 mg PO DAILY [facility] Last Admin: 07/07/18 08:14 Dose: 325 mg Calcium Carbonate (Tums*) 500 mg PO Q4H PRN PRN Reason: HEARTBURN Escitalopram Oxalate (Lexapro *) 20 mg PO DAILY [facility] Last Admin: 07/07/18 08:15 Dose: 20 mg Guaifenesin (Mucinex*) 1,200 mg PO BID PRN PRN Reason: CONGESTION Heparin Sodium (Porcine) (Heparin Vial(*)) 5,000 units SUBCUT Q8HR [facility] Last Admin: 07/07/18 05:45 Dose: 5,000 units Ceftriaxone Sodium 1 gm/ (Sodium Chloride) 50 mls @ 200 mls/hr IVPB Q24H [facility] Last Admin: 07/06/18 16:41 Dose: 200 mls/hr Lidocaine (Lidoderm 5% Patch*) 1 patch TRANSDERM DAILY [facility] Last Admin: 07/07/18 08:14 Dose: 1 patch Metoprolol Succinate (Toprol Xl Tab*) 75 mg PO DAILY [facility] Last Admin: 07/07/18 08:14 Dose: 75 mg Mometasone Furoate/Formoterol Fumar (Dulera 200/5 Mdi*) 2 puff INH BID [facility]; Protocol Last Admin: 07/07/18 08:09 Dose: 2 puff Multivitamins/Minerals (Theragran/Minerals Tab*) 1 tab PO DAILY [facility] Last Admin: 07/07/18 08:15 Dose: 1 tab Ondansetron HCl (Zofran Odt Tab*) 8 mg PO Q8H PRN PRN Reason: NAUSEA/VOMITING Last Admin: 07/06/18 09:30 Dose: 8 mg Oxycodone HCl (Oxycontin(*)) 15 mg PO Q12HR [facility] Last Admin: 07/07/18 08:15 Dose: 15 mg Oxycodone HCl (Roxycodone Tab*) 5 mg PO Q3H PRN PRN Reason: PAIN - UNRELIEVED Last Admin: 07/06/18 16:41 Dose: 5 mg Pantoprazole Sodium (Protonix Tab*) 40 mg PO BID [facility] Last Admin: 07/07/18 08:15 Dose: 40 mg Potassium Chloride (Klor Con Er Tab*) 20 meq PO DAILY [facility] Last Admin: 07/07/18 08:15 Dose: 20 meq Torsemide (Torsemide) 40 mg PO DAILY [facility] Last Admin: 07/07/18 08:15 Dose: 40 mg Vital Signs - 8 hr 07/07/18 07/07/18 07/07/18 03:53 08:13 08:15 Temperature 97.5 F Pulse Rate 81 85 Respiratory 18 20 16 Rate Blood Pressure 107/49 (mmHg) O2 Sat by Pulse 99 99 Oximetry Oxygen Devices in Use Now: Nasal Cannula Appearance: Alert, partly up in bed. Ice pack on neck. Appears uncomfortabe/ unhappy. Eyes: No Scleral Icterus Neck: NL Appearance and Movements; NL JVP, No Thyroid Enlargement, Masses Respiratory: Symmetrical Chest Expansion and Respiratory Effort, Clear to Auscultation, Clear to Percussion Cardiovascular: NL Sounds; No Murmurs; No JVD, RRR, - - 1+ edema BL Extremities: No Clubbing, Cyanosis, - - 1+ edema BL Skin: No Rash or Ulcers, No Nodules or Sclerosis Neurological: Alert and Oriented x 3, NL Sensation Result Diagrams: 07/06/18 03:00 07/07/18 08:19 Additional Lab and Data: Lab Results 07/05/18 07/05/18 07/05/18 Range/Units 14:52 14:52 14:52 WBC 8.8 (3.5-10.8) 10^3/uL RBC 3.91 L (4.18-5.48) 10^6 /uL Hgb 12.3 L (14.0-18.0) g/dL Hct 38 (36-46) % MCV 97 H (80-94) fL MCH 32 H (27-31) pg MCHC 32 (31-36) g/dL RDW 14 (10.5-15) % Plt Count 223 (150-450) 10^3/uL MPV 7.2 L (7.4-10.4) fL Neut % (Auto) 68.7 % Lymph % (Auto) 16.2 % [place] % (Auto) 11.0 % Eos % (Auto) 3.8 % Baso % (Auto) 0.3 % Absolute Neuts (auto) 6.1 (1.5-7.7) 10^3/ul Absolute Lymphs (auto) 1.4 (1.0-4.8) 10^3/ul Absolute Monos (auto) 1.0 H (0-0.8) 10^3/ul Absolute Eos (auto) 0.3 (0-0.6) 10^3/ul Absolute Basos (auto) 0 (0-0.2) 10^3/ul Absolute Nucleated RBC 0 10^3/ul Nucleated RBC % 0 INR (Anticoag Therapy) 0.94 (0.77-1.02) APTT 28.9 (26.0-36.3) seconds Sodium 142 (135-145) mmol/L Potassium 4.1 (3.5-5.0) mmol/L Chloride 101 (101-111) mmol/L Carbon Dioxide 37 H (22-32) mmol/L Anion Gap 4 (2-11) mmol/L BUN 14 (6-24) mg/dL Creatinine 0.60 L (0.67-1.17) mg/dL Est GFR ( Amer) 158.5 (>60) Est GFR (Non-Af Amer) 131.0 (>60) BUN/Creatinine Ratio 23.3 H (8-20) Glucose 101 H (70-100) mg/dL Lactic Acid (0.5-2.0) mmol/L Calcium 8.6 (8.6-10.3) mg/dL Total Bilirubin 0.60 (0.2-1.0) mg/dL AST 18 (13-39) U/L ALT 16 (7-52) U/L Alkaline Phosphatase 70 (34-104) U/L Troponin I 0.02 (<0.04) ng/mL Total Protein 6.1 L (6.4-8.9) g/dL Albumin 3.2 (3.2-5.2) g/dL Globulin 2.9 (2-4) g/dL Albumin/Globulin Ratio 1.1 (1-3) /08/18 Range/Units 14:52 WBC (3.5-10.8) 10^3/uL RBC (4.18-5.48) 10^6 /uL Hgb (14.0-18.0) g/dL Hct (36-46) % MCV (80-94) fL MCH (27-31) pg MCHC (31-36) g/dL RDW (10.5-15) % Plt Count (150-450) 10^3/uL MPV (7.4-10.4) fL Neut % (Auto) % Lymph % (Auto) % [place] % (Auto) % Eos % (Auto) % Baso % (Auto) % Absolute Neuts (auto) (1.5-7.7) 10^3/ul Absolute Lymphs (auto) (1.0-4.8) 10^3/ul Absolute Monos (auto) (0-0.8) 10^3/ul Absolute Eos (auto) (0-0.6) 10^3/ul Absolute Basos (auto) (0-0.2) 10^3/ul Absolute Nucleated RBC 10^3/ul Nucleated RBC % INR (Anticoag Therapy) (0.77-1.02) APTT (26.0-36.3) seconds Sodium (135-145) mmol/L Potassium (3.5-5.0) mmol/L Chloride (101-111) mmol/L Carbon Dioxide (22-32) mmol/L Anion Gap (2-11) mmol/L BUN (6-24) mg/dL Creatinine (0.67-1.17) mg/dL Est GFR ( Amer) (>60) Est GFR (Non-Af Amer) (>60) BUN/Creatinine Ratio (8-20) Glucose (70-100) mg/dL Lactic Acid 0.5 (0.5-2.0) mmol/L Calcium (8.6-10.3) mg/dL Total Bilirubin (0.2-1.0) mg/dL AST (13-39) U/L ALT (7-52) U/L Alkaline Phosphatase (34-104) U/L Troponin I (<0.04) ng/mL Total Protein (6.4-8.9) g/dL Albumin (3.2-5.2) g/dL Globulin (2-4) g/dL Albumin/Globulin Ratio (1-3) Microbiology and Other Data: Microbiology 07/06/18 00:00 Nasal Screen MRSA (PCR) - Final Nasal Mrsa Not Detected Assess/Plan/Problems-Billing Assessment: - Patient Problems (1) CHF (congestive heart failure) Current Visit: Yes Status: Acute Code(s): I50.9 - HEART FAILURE, UNSPECIFIED SNOMED Code(s): 45925701 Comment: Received 2 L NSS in ED 07/05. Good diuresis with IV furosemide. Listed as taking PRN furosemide at home, pt says it doesn't help. Started daily po torsemide 07/06. Received furosemide 40 mg IV 07/06 19:54 hrs. BMP . (2) Atrial fibrillation Current Visit: Yes Status: Acute Code(s): I48.91 - UNSPECIFIED ATRIAL FIBRILLATION SNOMED Code(s): 18522429 Comment: Echo ordered for 07/07. Likely will need chronic AC. Continue DVT dose heparin for now. Continue metoprolol succinate 75 mg daily. (3) Urinary retention Current Visit: No Status: Acute Code(s): R33.9 - RETENTION OF URINE, UNSPECIFIED SNOMED Code(s): 288696824 Comment: - Chronic, self catheterizes at home, follows with Dr. Cortez. - Continue ellison. ? was complying with Dr. Cortez's recommended frequency of self-cath at home. (4) Elevated troponin Current Visit: Yes Status: Acute Code(s): R74.8 - ABNORMAL LEVELS OF OTHER SERUM ENZYMES SNOMED Code(s): 010959728 Comment: Likely demand ischemia. Patient does not want any invasive cardiac procedures such as stenting, will not do stress test. (5) COPD (chronic obstructive pulmonary disease) Current Visit: No Status: Acute Code(s): J44.9 - CHRONIC OBSTRUCTIVE PULMONARY DISEASE, UNSPECIFIED SNOMED Code(s): 13135435 Comment: - Continue inhalers and PRN albuterol. CO2 in BMP up to 45, start acetazolamide. BMP 07/08/18. (6) Neck pain Current Visit: Yes Status: Acute Code(s): M54.2 - CERVICALGIA SNOMED Code( s): 97042347 Comment: Likely related to falls. CT C spine neg for fracture or dislocation. Continue analgesics. (7) Recurrent falls Current Visit: No Status: Acute Code(s): R29.6 - REPEATED FALLS SNOMED Code(s): 743643411 Comment: PT eval requested. (8) Chronic pain Current Visit: No Status: Acute Code(s): G89.29 - OTHER CHRONIC PAIN SNOMED Code(s): 11848723 Comment: Resume home dose oxycodone SR, also give PRN dose oxycodone IR. Pain control is didfficult as he appears lethargic at times and there is concern about his oxygenation with narcotics.
[2018-07-07] MEDS: acetaZOLAMIDE TAB* 250 MG PO SCH ×2 (10:52→20:51)
--- NOTE | 2018-07-07 13:54 | ECHO ---
Patient: CRYSTAL CAMPOS [facility] Rec#: [id number] : 1940 Date: 07/07/2018 Age: 78y Height: 185 cm / 72.8 in Weight: 130 kg / 286.5 lbs Sex: M BSA: 2.5 Room#: 450 Admit Date#: 07/05/2018 Type: Inpatient Referring: Ashok Grove MD Reading: Nell Gonzalez MD Barrel Cap Setter: Carmina AustinRDCS,RDMS CC: Royal Paz MD Transthoracic Echocardiogram Indication: ABN EKG BP: 107/49 HR: 77 Rhythm: A-Fib Findings History: COPD, INDIGO, CAD Technical Comments: The study is technically limited due to the patient's history of COPD. Left Ventricle: The left ventricular chamber size is normal. Mild to moderate concentric left ventricular hypertrophy is observed. There is mildly decreased left ventricular systolic function. The estimated ejection fraction is 45-50%. The assessment of diastolic function is non-diagnostic. Left Atrium: The left atrium is mildly dilated. Right Ventricle: The right ventricular cavity size is normal. The right ventricular global systolic function is low normal. Right Atrium: The right atrium is mild to moderately dilated. Aortic Valve: There is no evidence of aortic valve thickening. There is no evidence of aortic regurgitation. There is no evidence of aortic stenosis. Mitral Valve: The mitral valve leaflets appear normal. There is no evidence of mitral regurgitation. There is no evidence of mitral stenosis. Tricuspid Valve: The tricuspid valve leaflets are not thickened. There is no evidence of tricuspid valve regurgitation. Unable to estimate the right ventricular systolic pressure. Pulmonic Valve: The pulmonic valve structure is not well visualized. Pericardium: There is no significant pericardial effusion. Aorta: There is mild dilatation of the ascending aorta. The aortic arch is not well visualized. Patient was wearing a neck brace. There is mild dilatation of the aortic root. Pulmonary Artery: The main pulmonary artery is not well visualized. Venous: The inferior vena cava is not visualized. Summary: There are changes noted when compared to the previous study done on 05/24/2018, Lv EF was reported 55% then. Conclusions The study is technically limited due to the patient's history of COPD. The left ventricular chamber size is normal. Mild to moderate concentric left ventricular hypertrophy is observed. There is mildly decreased left ventricular systolic function. The estimated ejection fraction is 45-50%. The assessment of diastolic function is non-diagnostic. The left atrium is mildly dilated. The right atrium is mild to moderately dilated. There is mild dilatation of the ascending aorta. There is mild dilatation of the aortic root. Measurements Name Value Normal Range RVIDd (AP) 2D 3.5 cm (0.9 - 2.6) RVDdMajor (2D) 3.5 cm (2.2 - 4.4) RAd ISD 4CH 6.4 cm (3.4 - 4.9) RA (A4C)W 4.2 cm (2.9 - 4.6) IVSd (2D) 1.2 cm (0.6 - 1) LVPWd (2D) 1.4 cm (0.6 - 1) LVIDd (2D) 4.7 cm (3.6 - 5.4) LVIDs (2D) 3.9 cm - LV FS (2D) 17 % (25 - 45) Ao root diameter (2D) 3.8 cm (2.1 - 3.5) Ascending Ao 3.7 cm (2.1 - 3.4) LA dimension (AP) 2D 4.9 cm (2.3 - 3.8) LAd ISD 4CH 5.7 cm (2.9 - 5.3) LA ISD 4CH W 5.3 cm (2.5 - 4.5) Name Value Normal Range LA ESV BP (A/L) index 40 ml/m2 - Name Value Normal Range MV E-wave Vmax 1.2 m/sec - MV deceleration time 185 msec - LV lateral e' Vmax 0.15 m/sec - LV E:e' lateral ratio 8 ratio - Name Value Normal Range AV Vmax 1.3 m/sec - AV peak gradient 7 mmHg - LVOT Vmax 1.2 m/sec - LVOT peak gradient 6 mmHg - Name Value Normal Range MV Vmax 1.2 m/sec - MV VTI 22 cm - MV peak gradient 6 mmHg - MV mean gradient 2 mmHg - MV PHT 82 msec - MVA (PHT) 2.7 cm2 - Name Value Normal Range RAP 8 mmHg - Name Value Normal Range PV Vmax 0.9 m/sec - PV peak gradient 3.2 mmHg -
[2018-07-07] MEDS: oxyCODONE TAB* 5 MG TAB PO PRN (15:10)
[2018-07-07] MEDS: cefTRIAXone(*) 1 GM in NS 0.9% 50 ML* 50 ML IVPB SCH (16:15)
[2018-07-08] MEDS: Heparin VIAL(*) 5000 UNITS/ML VIAL (FIVE THOUSAND) SUBCUT SCH ×2 (05:39→14:28)
[2018-07-08] MEDS: Acetaminophen TAB* 325 MG PO PRN (05:45)
[2018-07-08 06:45] LABS: BUN/Creatinine Ratio 24.2 (8-20); Calcium 8.6 mg/dL (8.6-10.3); EGFR Non-African American 117.3 (>60); Potassium 3.5 mmol/L (3.5-5.0)
[2018-07-08] MEDS: Mometasone/Formoter 200/5 MDI INH SCH (07:55)
[2018-07-08] MEDS: Torsemide TAB 10 MG PO SCH (09:33)
[2018-07-08] MEDS: oxyCODONE SR TAB(*) 15 MG TAB.SR PO SCH ×2 (09:33→21:47)
[2018-07-08] MEDS: Potassium Chlor TAB* 20 MEQ TAB.ER PO SCH (09:33)
[2018-07-08] MEDS: Pantoprazole TAB * 40 MG TAB PO SCH ×2 (09:33→21:47)
[2018-07-08] MEDS: acetaZOLAMIDE TAB* 250 MG PO SCH ×2 (09:33→21:47)
[2018-07-08] MEDS: Metoprolol Succinate XL TAB* 25 MG PO SCH (09:33)
[2018-07-08] MEDS: Multivitamins/Minerals TAB PO SCH (09:33)
[2018-07-08] MEDS: Lidocaine PATCH 5%* 1 PATCH TRANSDERM SCH (09:33)
[2018-07-08] MEDS: Aspirin TAB* 325 MG PO SCH (09:33)
[2018-07-08] MEDS: Escitalopram * 20 MG TABLET PO SCH (09:33)
--- NOTE | 2018-07-08 14:13 | PN ---
Subjective Date of Service: 07/08/18 Interval History: C/O headache. Anxious to go home. Objective Active Medications: Acetaminophen (Tylenol Tab*) 650 mg PO Q6H PRN PRN Reason: PAIN Last Admin: 07/08/18 05:45 Dose: 650 mg Acetazolamide (Diamox Tab*) 250 mg PO BID [facility] Last Admin: 07/08/18 09:33 Dose: 250 mg Al Hydrox/Mg Hydrox/Simethicone (Maalox Plus*) 30 ml PO Q6H PRN PRN Reason: INDIGESTION Albuterol/Ipratropium (Duoneb (Albuterol 2.5 Mg/Ipratropium 0.5 Mg)) 1 neb INH Q2H PRN PRN Reason: SOB/WHEEZING Aspirin (Aspirin Tab*) 325 mg PO DAILY [facility] Last Admin: 07/08/18 09:33 Dose: 325 mg Calcium Carbonate (Tums*) 500 mg PO Q4H PRN PRN Reason: HEARTBURN Escitalopram Oxalate (Lexapro *) 20 mg PO DAILY [facility] Last Admin: 07/08/18 09:33 Dose: 20 mg Guaifenesin (Mucinex*) 1,200 mg PO BID PRN PRN Reason: CONGESTION Heparin Sodium (Porcine) (Heparin Vial(*)) 5,000 units SUBCUT Q8HR [facility] Last Admin: 07/08/18 05:39 Dose: 5,000 units Ceftriaxone Sodium 1 gm/ (Sodium Chloride) 50 mls @ 200 mls/hr IVPB Q24H [facility] Last Admin: 07/07/18 16:15 Dose: 200 mls/hr Lidocaine (Lidoderm 5% Patch*) 1 patch TRANSDERM DAILY [facility] Last Admin: 07/08/18 09:33 Dose: 1 patch Metoprolol Succinate (Toprol Xl Tab*) 75 mg PO DAILY [facility] Last Admin: 07/08/18 09:33 Dose: 75 mg Mometasone Furoate/Formoterol Fumar (Dulera 200/5 Mdi*) 2 puff INH BID [facility]; Protocol Last Admin: 07/08/18 07:55 Dose: 2 puff Multivitamins/Minerals (Theragran/Minerals Tab*) 1 tab PO DAILY [facility] Last Admin: 07/08/18 09:33 Dose: 1 tab Ondansetron HCl (Zofran Odt Tab*) 8 mg PO Q8H PRN PRN Reason: NAUSEA/VOMITING Last Admin: 07/06/18 09:30 Dose: 8 mg Oxycodone HCl (Oxycontin(*)) 15 mg PO Q12HR [facility] Last Admin: 07/08/18 09:33 Dose: 15 mg Oxycodone HCl (Roxycodone Tab*) 5 mg PO Q3H PRN PRN Reason: PAIN - UNRELIEVED Last Admin: 07/07/18 15:10 Dose: 5 mg Pantoprazole Sodium (Protonix Tab*) 40 mg PO BID [facility] Last Admin: 07/08/18 09:33 Dose: 40 mg Potassium Chloride (Klor Con Er Tab*) 20 meq PO DAILY [facility] Last Admin: 07/08/18 09:33 Dose: 20 meq Torsemide (Torsemide) 40 mg PO DAILY [facility] Last Admin: 07/08/18 09:33 Dose: 40 mg Vital Signs - 8 hr 07/08/18 07/08/18 07/08/18 07:58 09:33 12:23 Temperature 97.3 F Pulse Rate 81 91 Respiratory 16 14 16 Rate Blood Pressure 102/59 (mmHg) O2 Sat by Pulse 98 100 Oximetry Oxygen Devices in Use Now: Nasal Cannula Appearance: Alert but tends to close his eyes during my visit. In a chair. Looks comfortable. Eyes: No Scleral Icterus Respiratory: Symmetrical Chest Expansion and Respiratory Effort, Clear to Auscultation, Clear to Percussion Cardiovascular: NL Sounds; No Murmurs; No JVD, RRR Extremities: No Clubbing, Cyanosis, - - Tr edema BL Skin: No Rash or Ulcers, No Nodules or Sclerosis, - Neurological: Alert and Oriented x 3, NL Sensation Result Diagrams: 07/06/18 03:00 07/08/18 06:07 Additional Lab and Data: Lab Results 07/05/18 07/05/18 07/05/18 Range/Units 14:52 14:52 14:52 WBC 8.8 (3.5-10.8) 10^3/uL RBC 3.91 L (4.18-5.48) 10^6 /uL Hgb 12.3 L (14.0-18.0) g/dL Hct 38 (36-46) % MCV 97 H (80-94) fL MCH 32 H (27-31) pg MCHC 32 (31-36) g/dL RDW 14 (10.5-15) % Plt Count 223 (150-450) 10^3/uL MPV 7.2 L (7.4-10.4) fL Neut % (Auto) 68.7 % Lymph % (Auto) 16.2 % [place] % (Auto) 11.0 % Eos % (Auto) 3.8 % Baso % (Auto) 0.3 % Absolute Neuts (auto) 6.1 (1.5-7.7) 10^3/ul Absolute Lymphs (auto) 1.4 (1.0-4.8) 10^3/ul Absolute Monos (auto) 1.0 H (0-0.8) 10^3/ul Absolute Eos (auto) 0.3 (0-0.6) 10^3/ul Absolute Basos (auto) 0 (0-0.2) 10^3/ul Absolute Nucleated RBC 0 10^3/ul Nucleated RBC % 0 INR (Anticoag Therapy) 0.94 (0.77-1.02) APTT 28.9 (26.0-36.3) seconds Sodium 142 (135-145) mmol/L Potassium 4.1 (3.5-5.0) mmol/L Chloride 101 (101-111) mmol/L Carbon Dioxide 37 H (22-32) mmol/L Anion Gap 4 (2-11) mmol/L BUN 14 (6-24) mg/dL Creatinine 0.60 L (0.67-1.17) mg/dL Est GFR ( Amer) 158.5 (>60) Est GFR (Non-Af Amer) 131.0 (>60) BUN/Creatinine Ratio 23.3 H (8-20) Glucose 101 H (70-100) mg/dL Lactic Acid (0.5-2.0) mmol/L Calcium 8.6 (8.6-10.3) mg/dL Total Bilirubin 0.60 (0.2-1.0) mg/dL AST 18 (13-39) U/L ALT 16 (7-52) U/L Alkaline Phosphatase 70 (34-104) U/L Troponin I 0.02 (<0.04) ng/mL Total Protein 6.1 L (6.4-8.9) g/dL Albumin 3.2 (3.2-5.2) g/dL Globulin 2.9 (2-4) g/dL Albumin/Globulin Ratio 1.1 (1-3) 07/05/18 Range/Units 14:52 WBC (3.5-10.8) 10^3/uL RBC (4.18-5.48) 10^6 /uL Hgb (14.0-18.0) g/dL Hct (36-46) % MCV (80-94) fL MCH (27-31) pg MCHC (31-36) g/dL RDW (10.5-15) % Plt Count (150-450) 10^3/uL MPV (7.4-10.4) fL Neut % (Auto) % Lymph % (Auto) % [place] % (Auto) % Eos % (Auto) % Baso % (Auto) % Absolute Neuts (auto) (1.5-7.7) 10^3/ul Absolute Lymphs (auto) (1.0-4.8) 10^3/ul Absolute Monos (auto) (0-0.8) 10^3/ul Absolute Eos (auto) (0-0.6) 10^3/ul Absolute Basos (auto) (0-0.2) 10^3/ul Absolute Nucleated RBC 10^3/ul Nucleated RBC % INR (Anticoag Therapy) (0.77-1.02) APTT (26.0-36.3) seconds Sodium (135-145) mmol/L Potassium (3.5-5.0) mmol/L Chloride (101-111) mmol/L Carbon Dioxide (22-32) mmol/L Anion Gap (2-11) mmol/L BUN (6-24) mg/dL Creatinine (0.67-1.17) mg/dL Est GFR ( Amer) (>60) Est GFR (Non-Af Amer) (>60) BUN/Creatinine Ratio (8-20) Glucose (70-100) mg/dL Lactic Acid 0.5 (0.5-2.0) mmol/L Calcium (8.6-10.3) mg/dL Total Bilirubin (0.2-1.0) mg/dL AST (13-39) U/L ALT (7-52) U/L Alkaline Phosphatase (34-104) U/L Troponin I (<0.04) ng/mL Total Protein (6.4-8.9) g/dL Albumin (3.2-5.2) g/dL Globulin (2-4) g/dL Albumin/Globulin Ratio (1-3) Microbiology and Other Data: Microbiology 07/06/18 00:00 Nasal Screen MRSA (PCR) - Final Nasal Mrsa Not Detected Assess/Plan/Problems-Billing Assessment: - Patient Problems (1) CHF (congestive heart failure) Current Visit: Yes Status: Acute Code(s): I50.9 - HEART FAILURE, UNSPECIFIED SNOMED Code(s): 39304131 Comment: Received 2 L NSS in ED 07/05. Good diuresis with IV furosemide. Listed as taking PRN furosemide at home, pt says it doesn't help. Started daily po torsemide 07/06. Received furosemide 40 mg IV 07/06 19:54 hrs. BMP . (2) Atrial fibrillation Current Visit: Yes Status: Acute Code(s): I48.91 - UNSPECIFIED ATRIAL FIBRILLATION SNOMED Code(s): 56325856 Comment: Echo ordered for 07/07. Chadvasc score 3, start apixaban 07/08 PM. Continue metoprolol succinate 75 mg daily. (3) Urinary retention Current Visit: No Status: Acute Code(s): R33.9 - RETENTION OF URINE, UNSPECIFIED SNOMED Code(s): 996192694 Comment: - Chronic, self catheterizes at home, follows with Dr. Cortez. - Continue ellison. ? was complying with Dr. Crotez's recommended frequency of self-cath at home. (4) Elevated troponin Current Visit: Yes Status: Acute Code(s): R74.8 - ABNORMAL LEVELS OF OTHER SERUM ENZYMES SNOMED Code(s): 329687160 Comment: Likely demand ischemia. Patient does not want any invasive cardiac procedures such as stenting, will not do stress test. (5) COPD (chronic obstructive pulmonary disease) Current Visit: No Status: Acute Code(s): J44.9 - CHRONIC OBSTRUCTIVE PULMONARY DISEASE, UNSPECIFIED SNOMED Code(s): 12082523 Comment: - Continue inhalers and PRN albuterol. CO2 in BMP down to 43 on 07/08 after 1 day of acetazolamide. BMP 07/09/18. Overnight study 07/08 - 07/09 on CPAP with 4 L/min O2 to see if CPAP is adequate for him. to bring in his home CPAP machine 48 PM to see if it works. (6) Neck pain Current Visit: Yes Status: Acute Code(s): M54.2 - CERVICALGIA SNOMED Code( s): 92432733 Comment: Likely related to falls. CT C spine neg for fracture or dislocation. Continue analgesics. (7) Recurrent falls Current Visit: No Status: Acute Code(s): R29.6 - REPEATED FALLS SNOMED Code(s): 037367227 Comment: PT eval requested. (8) Chronic pain Current Visit: No Status: Acute Code(s): G89.29 - OTHER CHRONIC PAIN SNOMED Code(s): 34998314 Comment: Resume home dose oxycodone SR, also give PRN dose oxycodone IR. Pain control is didfficult as he appears lethargic at times and there is concern about his oxygenation with narcotics.
[2018-07-08] MEDS: cefTRIAXone(*) 1 GM in NS 0.9% 50 ML* 50 ML IVPB SCH (16:26)
[2018-07-08] MEDS: oxyCODONE TAB* 5 MG TAB PO PRN (16:34)
[2018-07-08] MEDS: Apixaban* 5 MG TAB PO SCH (21:47)
[2018-07-09] MEDS: oxyCODONE TAB* 5 MG TAB PO PRN ×2 (01:36→16:47)
[2018-07-09] MEDS: Mometasone/Formoter 200/5 MDI INH SCH ×3 (05:25→20:47)
[2018-07-09 07:02] LABS: BUN/Creatinine Ratio 25.4 (8-20); Calcium 8.7 mg/dL (8.6-10.3); EGFR African American 149.8 (>60); EGFR Non-African American 123.8 (>60); Potassium 3.6 mmol/L (3.5-5.0)
[2018-07-09] MEDS: Multivitamins/Minerals TAB PO SCH (09:37)
[2018-07-09] MEDS: oxyCODONE SR TAB(*) 15 MG TAB.SR PO SCH (09:37)
[2018-07-09] MEDS: Pantoprazole TAB * 40 MG TAB PO SCH ×2 (09:37→20:08)
[2018-07-09] MEDS: Potassium Chlor TAB* 20 MEQ TAB.ER PO SCH (09:37)
[2018-07-09] MEDS: Escitalopram * 20 MG TABLET PO SCH (09:38)
[2018-07-09] MEDS: Lidocaine PATCH 5%* 1 PATCH TRANSDERM SCH (09:38)
[2018-07-09] MEDS: Metoprolol Succinate XL TAB* 25 MG PO SCH (09:38)
[2018-07-09] MEDS: acetaZOLAMIDE TAB* 250 MG PO SCH ×2 (09:38→20:07)
[2018-07-09] MEDS: Apixaban* 5 MG TAB PO SCH ×2 (09:38→20:07)
[2018-07-09] MEDS: Torsemide TAB 10 MG PO SCH (09:38)
[2018-07-09] MEDS: Aspirin TAB* 325 MG PO SCH (09:38)
[2018-07-09] MEDS: cefTRIAXone(*) 1 GM in NS 0.9% 50 ML* 50 ML IVPB SCH (16:48)
--- NOTE | 2018-07-09 19:57 | PN ---
Subjective Date of Service: 07/09/18 Interval History: patient seen today, alert no distress. complains of back ache and headache Past Medical History: Unchanged from Admission Objective Active Medications: Acetaminophen (Tylenol Tab*) 650 mg PO Q6H PRN PRN Reason: PAIN Last Admin: 07/08/18 05:45 Dose: 650 mg Acetazolamide (Diamox Tab*) 250 mg PO BID [facility] Last Admin: 07/09/18 09:38 Dose: 250 mg Al Hydrox/Mg Hydrox/Simethicone (Maalox Plus*) 30 ml PO Q6H PRN PRN Reason: INDIGESTION Albuterol/Ipratropium (Duoneb (Albuterol 2.5 Mg/Ipratropium 0.5 Mg)) 1 neb INH Q2H PRN PRN Reason: SOB/WHEEZING Apixaban (Eliquis*) 5 mg PO BID [facility] Last Admin: 07/09/18 09:38 Dose: 5 mg Aspirin (Aspirin Tab*) 325 mg PO DAILY [facility] Last Admin: 07/09/18 09:38 Dose: 325 mg Calcium Carbonate (Tums*) 500 mg PO Q4H PRN PRN Reason: HEARTBURN Escitalopram Oxalate (Lexapro *) 20 mg PO DAILY [facility] Last Admin: 07/09/18 09:38 Dose: 20 mg Guaifenesin (Mucinex*) 1,200 mg PO BID PRN PRN Reason: CONGESTION Ceftriaxone Sodium 1 gm/ (Sodium Chloride) 50 mls @ 200 mls/hr IVPB Q24H [facility] Last Admin: 07/09/18 16:48 Dose: 200 mls/hr Lidocaine (Lidoderm 5% Patch*) 1 patch TRANSDERM DAILY [facility] Last Admin: 07/09/18 09:38 Dose: 1 patch Metoprolol Succinate (Toprol Xl Tab*) 75 mg PO DAILY [facility] Last Admin: 07/09/18 09:38 Dose: 75 mg Mometasone Furoate/Formoterol Fumar (Dulera 200/5 Mdi*) 2 puff INH BID [facility]; Protocol Last Admin: 07/09/18 14:25 Dose: Not Given Multivitamins/Minerals (Theragran/Minerals Tab*) 1 tab PO DAILY [facility] Last Admin: 07/09/18 09:37 Dose: 1 tab Ondansetron HCl (Zofran Odt Tab*) 8 mg PO Q8H PRN PRN Reason: NAUSEA/VOMITING Last Admin: 07/06/18 09:30 Dose: 8 mg Oxycodone HCl (Oxycontin(*)) 15 mg PO Q12HR [facility] Last Admin: 07/09/18 09:37 Dose: 15 mg Oxycodone HCl (Roxycodone Tab*) 5 mg PO Q3H PRN PRN Reason: PAIN - UNRELIEVED Last Admin: 07/09/18 16:47 Dose: 5 mg Pantoprazole Sodium (Protonix Tab*) 40 mg PO BID [facility] Last Admin: 07/09/18 09:37 Dose: 40 mg Potassium Chloride (Klor Con Er Tab*) 20 meq PO DAILY [facility] Last Admin: 07/09/18 09:37 Dose: 20 meq Torsemide (Torsemide) 40 mg PO DAILY [facility] Last Admin: 07/09/18 09:38 Dose: 40 mg Vital Signs - 8 hr 07/09/18 07/09/18 07/09/18 12:17 16:47 19:13 Temperature 97.3 F Pulse Rate 89 Respiratory 22 18 20 Rate Blood Pressure 144/75 (mmHg) Oxygen Devices in Use Now: Nasal Cannula Appearance: awake, no distress, sleepy but arousable. Eyes: No Scleral Icterus Neck: NL Appearance and Movements; NL JVP Respiratory: Symmetrical Chest Expansion and Respiratory Effort, - - poor air flow Cardiovascular: NL Sounds; No Murmurs; No JVD Result Diagrams: 07/06/18 03:00 07/09/18 06:26 Additional Lab and Data: Lab Results 07/05/18 07/05/18 07/05/18 Range/Units 14:52 14:52 14:52 WBC 8.8 (3.5-10.8) 10^3/uL RBC 3.91 L (4.18-5.48) 10^6 /uL Hgb 12.3 L (14.0-18.0) g/dL Hct 38 (36-46) % MCV 97 H (80-94) fL MCH 32 H (27-31) pg MCHC 32 (31-36) g/dL RDW 14 (10.5-15) % Plt Count 223 (150-450) 10^3/uL MPV 7.2 L (7.4-10.4) fL Neut % (Auto) 68.7 % Lymph % (Auto) 16.2 % Bell % (Auto) 11.0 % Eos % (Auto) 3.8 % Baso % (Auto) 0.3 % Absolute Neuts (auto) 6.1 (1.5-7.7) 10^3/ul Absolute Lymphs (auto) 1.4 (1.0-4.8) 10^3/ul Absolute Monos (auto) 1.0 H (0-0.8) 10^3/ul Absolute Eos (auto) 0.3 (0-0.6) 10^3/ul Absolute Basos (auto) 0 (0-0.2) 10^3/ul Absolute Nucleated RBC 0 10^3/ul Nucleated RBC % 0 INR (Anticoag Therapy) 0.94 (0.77-1.02) APTT 28.9 (26.0-36.3) seconds Sodium 142 (135-145) mmol/L Potassium 4.1 (3.5-5.0) mmol/L Chloride 101 (101-111) mmol/L Carbon Dioxide 37 H (22-32) mmol/L Anion Gap 4 (2-11) mmol/L BUN 14 (6-24) mg/dL Creatinine 0.60 L (0.67-1.17) mg/dL Est GFR ( Amer) 158.5 (>60) Est GFR (Non-Af Amer) 131.0 (>60) BUN/Creatinine Ratio 23.3 H (8-20) Glucose 101 H (70-100) mg/dL Lactic Acid (0.5-2.0) mmol/L Calcium 8.6 (8.6-10.3) mg/dL Total Bilirubin 0.60 (0.2-1.0) mg/dL AST 18 (13-39) U/L ALT 16 (7-52) U/L Alkaline Phosphatase 70 (34-104) U/L Troponin I 0.02 (<0.04) ng/mL Total Protein 6.1 L (6.4-8.9) g/dL Albumin 3.2 (3.2-5.2) g/dL Globulin 2.9 (2-4) g/dL Albumin/Globulin Ratio 1.1 (1-3) 07/05/18 Range/Units 14:52 WBC (3.5-10.8) 10^3/uL RBC (4.18-5.48) 10^6 /uL Hgb (14.0-18.0) g/dL Hct (36-46) % MCV (80-94) fL MCH (27-31) pg MCHC (31-36) g/dL RDW (10.5-15) % Plt Count (150-450) 10^3/uL MPV (7.4-10.4) fL Neut % (Auto) % Lymph % (Auto) % Bell % (Auto) % Eos % (Auto) % Baso % (Auto) % Absolute Neuts (auto) (1.5-7.7) 10^3/ul Absolute Lymphs (auto) (1.0-4.8) 10^3/ul Absolute Monos (auto) (0-0.8) 10^3/ul Absolute Eos (auto) (0-0.6) 10^3/ul Absolute Basos (auto) (0-0.2) 10^3/ul Absolute Nucleated RBC 10^3/ul Nucleated RBC % INR (Anticoag Therapy) (0.77-1.02) APTT (26.0-36.3) seconds Sodium (135-145) mmol/L Potassium (3.5-5.0) mmol/L Chloride (101-111) mmol/L Carbon Dioxide (22-32) mmol/L Anion Gap (2-11) mmol/L BUN (6-24) mg/dL Creatinine (0.67-1.17) mg/dL Est GFR ( Amer) (>60) Est GFR (Non-Af Amer) (>60) BUN/Creatinine Ratio (8-20) Glucose (70-100) mg/dL Lactic Acid 0.5 (0.5-2.0) mmol/L Calcium (8.6-10.3) mg/dL Total Bilirubin (0.2-1.0) mg/dL AST (13-39) U/L ALT (7-52) U/L Alkaline Phosphatase (34-104) U/L Troponin I (<0.04) ng/mL Total Protein (6.4-8.9) g/dL Albumin (3.2-5.2) g/dL Globulin (2-4) g/dL Albumin/Globulin Ratio (1-3) Microbiology and Other Data: Microbiology 07/06/18 00:00 Nasal Screen MRSA (PCR) - Final Nasal Mrsa Not Detected Assess/Plan/Problems-Billing Assessment: - Patient Problems (1) Atrial fibrillation Current Visit: Yes Status: Acute Code(s): I48.91 - UNSPECIFIED ATRIAL FIBRILLATION SNOMED Code(s): 96481714 Comment: - Echo ordered for 07/07. Chadvasc score 3, started apixaban 07/08 PM. Continue metoprolol succinate 75 mg daily. (2) CHF (congestive heart failure) Current Visit: Yes Status: Acute Code(s): I50.9 - HEART FAILURE, UNSPECIFIED SNOMED Code(s): 16251898 Comment: s/p 2 L NSS in ED 07/05. On daily po torsemide 07/06. Diamox 250 mg bid- (3) CAD (coronary artery disease) Current Visit: No Status: Acute Code(s): I25.10 - ATHSCL HEART DISEASE OF [place] CORONARY ARTERY W/O ANG PCTRS SNOMED Code(s): 94433964 Comment: - continue ASA to 81 mg -Continue Metoprolol (4) COPD (chronic obstructive pulmonary disease) Current Visit: No Status: Acute Code(s): J44.9 - CHRONIC OBSTRUCTIVE PULMONARY DISEASE, UNSPECIFIED SNOMED Code(s): 15853744 Comment: - Continue inhalers and PRN albuterol. - CO2 improving now that he is acetazolamide 250 mg bid. - I will check ABG in am to assess his pH and make sure he is not getting acidotic - Overnight study 07/08 - 07/09 on CPAP with 4 L/min O2 but continue to be hypoxic. Attempted to request Bipap as his CPAP is not adequate to avoid his hypoxia (5) Chronic pain Current Visit: No Status: Acute Code(s): G89.29 - OTHER CHRONIC PAIN SNOMED Code(s): 77960601 Comment: - I will try to cut back on oxycodone IR to Q 6hr secondary to increase lethargy. Will keep him on oxycodone SR. Pain control is didfficult as he appears lethargic at times and there is concern about his oxygenation with narcotics. (6) Obstructive sleep apnea on CPAP Current Visit: No Status: Chronic Code(s): G47.33 - OBSTRUCTIVE SLEEP APNEA (ADULT) (PEDIATRIC) SNOMED Code(s): 00856713 Comment: -Continue CPAP, will attempt Bipap approval based on his nocturnal oximetry (7) DVT prophylaxis Current Visit: No Status: Acute Code(s): DPB9811 - SNOMED Code(s): 433213969 Comment: - On abixipan
[2018-07-09] MEDS ORDERED: oxyCODONE TAB* 5 MG TAB PO PRN (20:00)
[2018-07-09] MEDS: oxyCODONE SR TAB(*) 10 MG TAB.SR PO SCH (21:36)
[2018-07-10 08:25] LABS: ABS Basophils 0 10^3/ul (0-0.2); ABS Eosinophils 0.3 10^3/ul (0-0.6); ABS Lymphocytes 1.8 10^3/ul (1.0-4.8); ABS Monocytes 1.1 10^3/ul (0-0.8); ABS Neutrophils 6.8 10^3/ul (1.5-7.7); ABS Nucleated RBC 0 10^3/ul; Eosinophil % 2.6 %; Hematocrit 39 % (36-46); Hemoglobin 12.7 g/dL (14.0-18.0); Mean Corpuscular HGB Conc 32 g/dL (31-36); Mean Corpuscular Hemoglobin 31 pg (27-31); Mean Corpuscular Volume 97 fL (80-94); Mean Platelet Volume 8.5 fL (7.4-10.4); Nucleated Red Blood Cells % 0; Platelet Count 228 10^3/uL (150-450); Red Blood Count 4.05 10^6 /uL (4.18-5.48); Red Cell Distribution Width 14 % (10.5-15); White Blood Count 10.1 10^3/uL (3.5-10.8)
[2018-07-10] MEDS: Lidocaine PATCH 5%* 1 PATCH TRANSDERM SCH (08:42)
[2018-07-10] MEDS: Aspirin TAB* 325 MG PO SCH (08:43)
[2018-07-10] MEDS: oxyCODONE SR TAB(*) 10 MG TAB.SR PO SCH (08:43)
[2018-07-10] MEDS: acetaZOLAMIDE TAB* 250 MG PO SCH (08:43)
[2018-07-10] MEDS: Torsemide TAB 10 MG PO SCH (08:43)
[2018-07-10] MEDS: Pantoprazole TAB * 40 MG TAB PO SCH (08:43)
[2018-07-10] MEDS: Metoprolol Succinate XL TAB* 25 MG PO SCH (08:43)
[2018-07-10] MEDS: Multivitamins/Minerals TAB PO SCH (08:43)
[2018-07-10] MEDS: Escitalopram * 20 MG TABLET PO SCH (08:43)
[2018-07-10] MEDS: Potassium Chlor TAB* 20 MEQ TAB.ER PO SCH (08:44)
[2018-07-10] MEDS: Apixaban* 5 MG TAB PO SCH (08:44)
[2018-07-10 08:50] LABS: Albumin 3.4 g/dL (3.2-5.2); Albumin/Globulin Ratio 1.1 (1-3); BUN/Creatinine Ratio 21.9 (8-20); Calcium 9.1 mg/dL (8.6-10.3); EGFR African American 147.1 (>60); EGFR Non-African American 121.6 (>60); Indirect Bilirubin 0.4 mg/dL (0.3-1.0); Magnesium 1.9 mg/dL (1.9-2.7); Phosphorus 2.6 mg/dL (2.5-5.0); Potassium 3.6 mmol/L (3.5-5.0); Total Bilirubin 0.5 mg/dL (0.2-1.0); Total Protein 6.4 g/dL (6.4-8.9)
[2018-07-10] MEDS: Mometasone/Formoter 200/5 MDI INH SCH (09:02)
[2018-07-10 13:05] VITALS: BP 98/55
--- NOTE | 2018-07-10 20:14 | DS ---
CC: Dr. Royal Paz; Dr. Brad Jacob * DISCHARGE SUMMARY: DATE OF ADMISSION: 07/05/18 DATE OF DISCHARGE: 07/10/18. CARDIOLOGY: Dr. Brad Jacob. HOSPITAL COURSE: Patient presented on 07/05/18 to the hospital after a fall at home related to dizziness. Apparently, he fell while he was trying to get out of his recliner 2 days prior to presentation and he declined to come into the ER for evaluation. Since then, he was getting more sleepy, less alert, and she expressed him being noncompliant with his BiPAP at home. In the emergency room , he was given 2 L of IV fluids and he was given Cardizem afterwards due to the sudden onset of pulmonary edema after the 2 L. Therefore, patient was admitted to the tele floor for [id number] respiratory failure secondary to flash pulmonary edema and the hypercapnic respiratory failure. A urinalysis was positive for UTI and he was started empirically on ceftriaxone. Patient was maintained in the hospital and he was followed on a daily basis. He was seen by me for the first encounter on 07/09/18 and during that evaluation, patient was quite lethargic and obtunded. I discontinued his short-acting oxycodone. He was kept on his home regimen of the OxyContin b.i.d. Also, I did note that he was started on Eliquis for his AFib on 07/08/18 as well as Diamox due to his contraction alkalosis exacerbated by his hypercapnia. He was seen again this morning and I repeated his blood work including his CBC, which seems to be stable, no evidence of anemia. His blood gas improved with a pH 7.44, his CO2 dropped from 75 down to 49, and he was maintaining good saturation 99%, with a serum bicarb drop from 45 down to 34 on today's chemistry. I had a very long discussion with the patient and the in the room. Most of the discussion took place with the participating while the patient nodding on and off, listening without any comment. I explained in detail the importance of adhering to his CPAP and BiPAP due to his hypercapnia. I actually had the bring the BiPAP from home and I helped set it up, which had a good seal and the pressure currently is 13/10. Also, I explained the importance of weaning off narcotic, to discuss with his provider whether or not Suboxone is an option as it would be beneficial to control his pain and avoid CO2 narcosis and the decrease in his respiratory drive. The was made aware of all the benefits and the risks of narcotic and respiratory compromise. Also, regarding his diuretic, I suggested to be placed on Diamox, to discuss with his urology physician or his primary with the potential to further titrate it up or down pending his chemistry and routine p.r.n. blood gas on an elective basis to assess whether or not the patient should be maintained. For now, I gave him Diamox 250 mg b.i.d. for 1 week. I asked her to cut down the Lasix from 40 down to 20 mg daily while he is on Diamox and further recommendation regarding the treatment with his outpatient provider. I do feel the benefit of Diamox would probably help eliminate the metabolic alkalosis which was induced by his hypercapnia and with the hope that it increases his respiratory drive. With the above statements and evaluation, I deemed the patient stable for discharge with the recommendations as it will be outlined below. PHYSICAL EXAM ON DISCHARGE: His temperature 97.8, pulse 64, respiratory rate 18 , saturation 99% on 3 L, blood pressure 98/55; 110/63; 142/60. Generally, he is awake, arousable, but falls asleep easily. Head and Neck: Normocephalic, atraumatic. Supple. Cardiovascular: S1, S2, irregularly irregular. Abdomen: Positive bowel sounds. Obese, soft. Extremities: He does have +2 edema. DIAGNOSTIC STUDIES/LAB DATA: He had multiple CBCs, fairly unremarkable. Blood gas on presentation; pH 7.31/75/106/31, 100% on 80% oxygen. Repeat blood gas 07/10/18 after 48 hours on Diamox; pH 7.44, pCO2 of 49, pO2 of 81, bicarb 31. Chemistry was significant for contraction alkalosis and compensatory metabolic alkalosis due to his hypercapnia with a bicarb of 45 on 07/07/18, is down to 34 on 07/10/18 with normal chemistry, potassium 3.6, magnesium 1.9, phosphorus 2.6. Troponin was 0.8, it peaked at 0.25, down to 0.15 on 07/06/18. Urinalysis was positive with urine culture positive for Enterococcus faecalis sensitive to Cipro. Diagnostic imaging: He had CT scan of the brain, 07/05/18, on presentation after a fall, shows stable chronic findings without any acute abnormality or bleed. Cervical spine CT shows no evidence of fracture or subluxation, mild DJD with cervical spondylosis. CT scan of the chest, abdomen and pelvis shows right upper and lower lobe infiltrates adjacent to the right hilum and left lower lobe infiltrates. Recommend followup chest x-ray versus neoplastic reason. Pulmonary edema finding. Pelvic and hip x-rays show no radiographical evidence of malalignment or fracture. Knee x-ray: Small suprapatellar effusion and DJD. Chest x-ray suggestive of pulmonary edema on 07/05/18, bibasilar pleural effusion. Repeat chest x-ray, 07/07/18, consistent with pulmonary edema. DISCHARGE MEDICATIONS: Continue his home medications: 1. Albuterol inhaler every 4 hours. 2. Aspirin 325 daily. 3. Symbicort 1 puff b.i.d. 4. Avodart 0.5 daily. 5. Advair 1 puff b.i.d. 6. Lasix decreased from 40 down to 20 mg daily while on Diamox. 7. Mucinex 600 b.i.d. 8. Meclizine 12.5 as needed. 9. Meloxicam 15 mg daily. 10. Toprol-XL 50 daily. 11. Multivitamin daily. 12. Omeprazole 20 b.i.d. 13. Oxycodone SR 15 mg every 12 hours. 14. Diamox 250 mg b.i.d. for 1 week. I discussed with his the benefit of acetazolamide with cor pulmonale and pulmonary hypertension; however, very strict adherence to compliance with the dosage and blood work as an outpatient. 15. Tums as needed. 16. Cipro 250 b.i.d. for 5 days. 17. Lexapro 20 daily. 18. Lidocaine patch. 19. Potassium 20 mEq daily. DISCHARGE INSTRUCTIONS: 1. Patient is to follow up with his primary care provider, Dr. Royal Paz, in 1 week. 2. Patient to discuss with PCP versus his urology physician the benefits regarding Diamox. Strict adherence to appointments and outpatient chemistry when ordered by PCP or urology physician to ensure safety while taking Diamox. 3. Follow up with Dr. Brad Jacob regarding his AFib. I elected to keep him on aspirin without full anticoagulation with Eliadam due to the risk of fall. Patient normally at home does not take any anticoagulation. It was started on admission, for which I took the liberty to discontinue. Keep him on aspirin and further discussion with his foot orthopedist the benefit and risk of anticoagulation given his increased risk of fall. 4. Patient to follow up with the respiratory at [facility] for a repeat sleep study as the patient will benefit from BiPAP titration study during the sleep test. 5. Patient to follow up with his urology physician. 6. Recommendation to repeat a chest x-ray in about 2 weeks to make sure complete resolution of his pulmonary edema and questionable pulmonary infiltrate. He did take ceftriaxone for 5 days while in-house. He will be sent on oral Cipro to complete his treatment for UTI of Enterococcus faecalis. [id number]/[facility] #: [id number] MTDD
--- NOTE | 2018-07-13 00:03 | DS ---
DISCHARGE SUMMARY: ADDENDUM: I was asked by the medical record to add a disposition to my discharge summary, the david hernandez was discharged home. [id number]/[facility] #: [id number]
== END 2018-07-10 15:00 | disposition home health service (06) | DRG 291 ==
LOC: ED 14:25 → ICU 20:10 → MEDTELE 07-06 08:24
PROVIDERS: ADMIT Internal Medicine; ATTEND Internal Medicine
PROC: 5A09357 Assistance with Respiratory Ventilation, Less than 24 Consecutive Hours, Continuous Positive Airway Pressure (ICD-10-PCS; principal; 2018-07-05)
PROC: 0T9B70Z Drainage of Bladder with Drainage Device, Via Natural or Artificial Opening (ICD-10-PCS; 2018-07-05)
DX: I11.0 Hypertensive heart disease with heart failure (principal); J96.22 Acute and chronic respiratory failure with hypercapnia; J96.21 Acute and chronic respiratory failure with hypoxia; J81.1 Chronic pulmonary edema; N39.0 Urinary tract infection, site not specified; E87.3 Alkalosis; I50.33 Acute on chronic diastolic (congestive) heart failure; J44.9 Chronic obstructive pulmonary disease, unspecified; I25.10 Atherosclerotic heart disease of native coronary artery without angina pectoris; R51 Headache; M54.2 Cervicalgia; I48.91 Unspecified atrial fibrillation; R33.9 Retention of urine, unspecified; R74.8 Abnormal levels of other serum enzymes; R29.6 Repeated falls; G47.33 Obstructive sleep apnea (adult) (pediatric); W19.XXXA Unspecified fall, initial encounter; R58 Hemorrhage, not elsewhere classified; K57.90 Diverticulosis of intestine, part unspecified, without perforation or abscess without bleeding; K21.9 Gastro-esophageal reflux disease without esophagitis; K44.9 Diaphragmatic hernia without obstruction or gangrene; M46.90 Unspecified inflammatory spondylopathy, site unspecified; F32.9 Major depressive disorder, single episode, unspecified; G43.909 Migraine, unspecified, not intractable, without status migrainosus; M19.012 Primary osteoarthritis, left shoulder; Z96.643 Presence of artificial hip joint, bilateral; R40.2412 Glasgow coma scale score 13-15, at arrival to emergency department; B95.2 Enterococcus as the cause of diseases classified elsewhere; M47.812 Spondylosis without myelopathy or radiculopathy, cervical region; M25.461 Effusion, right knee; Z91.19 Patient's noncompliance with other medical treatment and regimen; N31.9 Neuromuscular dysfunction of bladder, unspecified; G89.4 Chronic pain syndrome; I44.7 Left bundle-branch block, unspecified; Y92.9 Unspecified place or not applicable; Z90.49 Acquired absence of other specified parts of digestive tract; Z86.73 Personal history of transient ischemic attack (TIA), and cerebral infarction without residual deficits; Z83.3 Family history of diabetes mellitus; Z79.82 Long term (current) use of aspirin; Z91.041 Radiographic dye allergy status; Z91.81 History of falling
CPT/HCPCS: 36415; 36600; 70450; 71045; 71046; 71250; 72125; 74176; 80048; 80053; 80076; 81003; 81015; 82803; 83605; 83735; 83880; 84100; 84484; 85025; 85610; 85730; 86140; 87040; 87077; 87086; 87186; 87641; 93005; 93306; 94640; 94660; 94762; 99283; A9270-GY; G8978-GP-CK; G8979-GP-CI; J0456; J0696; J1644; J1885; J1940; J2765

== ENCOUNTER 2018-07-28 14:36 | Inpatient (IN) | payer MEDICARE ==
--- OUTSIDE RECORDS SUMMARY | 2018-07-28 14:48 | XMS REPORT | Continuity of Care Document ---
:1940 External Reference #:[id number] Author Name Darlene Harleyecca Care Team Providers Name Role Phone Royal Paz MD Primary Care Physician Unavailable Payers Date Identification Numbers Payment Provider Subscriber Effective: 2007 Policy Number: [id number] Medicare Familia Sethi PayID: [id number] [address] [place] [address] Policy Number: [id number] [facility] Familia Sethi PayID: [id number] [address] [place] [address] Effective: 2010 Policy Number: [id number] Hansa Sethi Expires: 2013 PayID: [id number] [address] [address] RACHEL Rush [address] Effective: 2013 Policy Number: [id number] BS Hansa Sethi Expires: 2017 PayID: [id number] [facility] [id number] R[place]HEL Rush [address] Advance Directives Description No Information Available Problems Date Description Provider Status Onset: 08/10/2014 Coronary arteriosclerosis Brad Jacob M.D., [facility], Active FASNC Onset: 08/10/2014 Palpitations Brad Jacob M.D., [facility], Active FASNC Onset: 07/24/2016 Difficulty breathing Brad Jacob M.D., [facility], Active FASNC Onset: 08/30/2016 Paroxysmal atrial fibrillation Brad Jacob M.D., [facility] , Active FASJOVAN Family History Date Family Member(s) Observation Comments Father CAD, DM Mother Cancer Social History Type Date Description Comments Sex Unknown Lives With Occupation Retired ETOH Use Denies alcohol use Tobacco Use Start: Unknown Patient has never smoked Smoking Status Reviewed: 03/13/18 Patient has never smoked Exercise Type/Frequency Does not exercise Allergies, Adverse Reactions, Alerts Date Description Reaction Status Severity Comments 08/30/2016 NKDA Active 08/30/2016 Contrast Dye hives, itching Active Moderate 02/04/2014 NKDA Inactive Medications Medication Date Status Form Strength Qnty SIG Indications Ordering Provider Metoprolol 08/02/ Active Tablets ER 25mg 90tab 2 tab by Brad Succinate ER 2016 24HR s mouth every Klarissa Jacob, CAROL, RACHEL Omeprazole / Active 20mg 1 tablet po Unknown 0000 b.i.d Advair Diskus / Active Aerosol 500-50mcg/ 1unit 1 puff Unknown 0000 Dose s twice a day Furosemide / Active Tablets 20mg 1-2 tablet Unknown 0000 po as needed Duloxetine HCL / Active Caps DR 30mg 1 cap po Unknown 0000 Part daily Albuterol / Active q 4-6 as Unknown Sulfate/ 0000 needed Nebulizer Multivitamins / Active 1 tablet po Unknown 0000 daily Ventolin HFA / Active Aerosol 108(90Base 2 puffs by Unknown 0000 ) mcg/Act mouth four times a day as needed Polyethylene / Active Powder 3350NF 17 g 1 Unknown Glycol 3350( 0000 capful in 8 Miralax) oz glass water daily Zofran / Active Tablets 8mg take one Unknown 0000 capsule/tab let tid by mouth as needed for nausea Dicyclomine HCL / Active Tablets 20mg 1 by mouth Unknown 0000 tid Bethanechol / Active Tablets 10mg 1 po qid Unknown Chloride 0000 prn Dutasteride / Active Capsules 0.5mg 1 cap by Unknown 0000 mouth daily Aspirin Ec / Active Tablets DR 325mg take 1 tab Unknown 0000 by mouth daily Oxycodone-Aceta / Active Tablets 10-325mg take 1 Unknown minophen 0000 tablet by mouth every 6 hours as needed for pain Aspirin 08/14/ Hx Tablets 81mg 1 by mouth Brad 2016 - every day Delmar 01/10/ Irasema Jacob M.D., CAROL, RACHEL Xarelto 08/02/ Hx Tablets 20mg 30tab 1 tab by Brad 2017 - s mouth every Jacobsen day(On , 2016 Hold) Klarissa, [facility], [facility] Compazine 08/06/ Hx Tablets 5mg 20tab one tablet Ronald 2014 - s by mouth F. 07/23/ every tid Sophia, 2017 as needed M.D. nausea Zofran 08/06/ Hx Tablets 4mg 80tab 1 tab by Ronald 2014 - s mouth every F. 01/11/ 6 hours as Sophia, 2016 needed M.D. nausea Oxycontin / Hx 80mg 2 tablet Magana, 0000 - Am, 1 Juan, 01/11/ tablet 2016 lunch , 2 tablets PM Bupropion HCL / Hx 150mg 1 tab q day Unknown SR - 2016 Metoprolol / Hx 50mg 1 PO Q day Unknown Tartrate 0000 - 2014 Celebrex / Hx 200mg 1 tablet po Unknown 0000 - daily Am 2015 Cymbalta / Hx 30mg 1 POq day Unknown 0000 - 2016 Aggrenox / Hx Caps ER 25-200mg 180ca 1 by mouth Unknown 0000 - 12HR ps twice a day 2015 Spiriva 00/ Hx Capsules 18mcg 3mon 1 Unknown Handihaler 0000 - inhalation 01/01/ by mouth 2016 every night Oxycontin 00/00/ Hx Tab ER 12H 15mg 60tab 1 tab by Magana, 0000 - Abuse-Det s mouth b.id. Juan, 01/11/ Am/PM 2015 Metoprolol 00/00/ Hx Tablets ER 100mg 1/2 tablet Unknown Succinate ER 0000 - 24HR po daily 2016 Vitamin D3 00/ Hx 2000Iu 2 cap po Unknown 0000 - daily Am 2016 Vitamin B-12 00/ Hx Tablets 500mcg 1 tablet po Unknown 0000 - every day Natural 2016 Oxycontin /00/ Hx Tab ER 12H 40mg by mouth Unknown 0000 - Abuse-Det every 8 2016 Oxycontin 00/00/ Hx Tab ER 12H 60mg 1 tablet by Unknown 0000 - Abuse-Det mouth every 04/23/ 8 hours 2016 Aspirin / Hx Tablets DR 325mg 1 by mouth Unknown 0000 - every day 2016 Oxycontin / Hx 15mg 4 times Unknown 0000 - daily for 03/12/ back pain 2017 Medications Administered in Office Medication Date Status Form Strength Qnty SIG Indications Ordering Provider Depomedrol 40MG 03/13/ Administered Injection Dirk 2017 Klarissa Burleson Depomedrol 40MG 03/13/ Administered Injection Dirk 2017 Klarissa Burleson Depomedrol 40MG 06/20/ Administered Injection Johnathan 2017 SAMRA Richards Depomedrol 40MG 06/20/ Administered Injection Johnathan 2017 SAMRA Richards Depomedrol 40MG 01/11/ Administered Injection Dirk 2016 Klarissa Burleson Depomedrol 40MG 01/11/ Administered Injection Dirk 2016 Klarissa Burleson Depomedrol 40MG 10/09/ Administered Injection Dirk 2016 Klarissa Burleson Depomedrol 40MG 10/09/ Administered Injection Dirk 2016 Klarissa Burleson Inj, 08/14/ Administered Injection Brad Jacobsen Regadenoson, 0.1 2016 MG Klarissa Jacob, FACC, FASNC Aminophylline 08/14/ Administered Injection Brad Jacobsen 2016 Klarissa Jacob, FACC, FASNC Technetium TC 08/14/ Administered Injection Brad Jacobsen 99M Tetrofosmin, 2016 Cecil, Per Unit Dose Up M.D., To 40 FACC, Millicuries FASNC Depomedrol 80MG 09/07/ Administered Injection Dirk 2014 Klraissa Burleson Inj, 08/17/ Administered Injection Brad Jacobsen Regadenoson, 0.1 2014 MG Klarissa Jacob, FACC, FASNC Technetium TC 08/17/ Administered Injection Brad Jacobsen 99M Tetrofosmin, 2014 Cecil, Per Unit Dose Up M.D., To 40 FACC, Millicuries FASNC Technetium TC 08/11/ Administered Injection Ica 99M Tetrofosmin, 2015 Nuclear Per Unit Dose Up Schedule To 40 Millicuries Depomedrol 80MG 02/04/ Administered Injection Dirk 2013 Klarissa Burleson Depomedrol 80MG 04/22/ Administered Injection Yusuf 2013 Klarissa Pressley Depomedrol 80MG 11/12/ Administered Injection Yusuf 2012 Klarissa Pressley Depomedrol 80MG 12/26/ Administered Injection Franck 2010 Klarissa Burleson Immunizations Description No Information Available Vital Signs Date Vital Result Comment 03/13/2018 11:12am Height 73 inches 6'1" Weight 250.00 lb BP Systolic 106 mmHg BP Diastolic 64 mmHg Respiratory Rate 16 /min Body Temperature 98.8 F Pain Level 10 BMI (Body Mass Index) 33.0 kg/m2 06/20/2017 10:54am Height 73 inches 6'1" Weight 250.00 lb Respiratory Rate 20 /min Pain Level 8 BMI (Body Mass Index) 33.0 kg/m2 01/11/2017 10:48am Height 73 inches 6'1" Weight 250.00 lb BP Systolic 120 mmHg BP Diastolic 78 mmHg Respiratory Rate 18 /min Body Temperature 97.8 F BMI (Body Mass Index) 33.0 kg/m2 10/09/2016 2:22pm Height 74 inches 6'2" Weight 239.00 lb Heart Rate 81 /min BP Systolic 115 mmHg BP Diastolic 80 mmHg Respiratory Rate 20 /min Body Temperature 98.1 F Pain Level 9 BMI (Body Mass Index) 30.7 kg/m2 08/30/2016 11:19am Height 74 inches 6'2" Weight 239.50 lb with shoes Heart Rate 84 /min BP Systolic Sitting 126 mmHg Rue large cuff BP Diastolic Sitting 74 mmHg Rue large cuff BP Systolic Standing 128 mmHg Rue large cuff BP Diastolic Standing 84 mmHg Rue large cuff Respiratory Rate 18 /min BMI (Body Mass Index) 30.7 kg/m2 08/30/2016 10:52am Height 74 inches 6'2" Ejection Fraction 55-60% 08/07/16 07/24/2016 12:50pm Height 74 inches 6'2" Weight 251.00 lb Heart Rate 78 /min BP Systolic Sitting 116 mmHg right arm, large cuff BP Diastolic Sitting 78 mmHg right arm, large cuff BP Systolic Standing 106 mmHg right arm, large cuff BP Diastolic Standing 72 mmHg right arm, large cuff BMI (Body Mass Index) 32.2 kg/m2 Ejection Fraction 55-60% 08/20/14 01/12/2016 9:09am Height 74 inches 6'2" Weight 255.00 lb Body Temperature 98.1 F Pain Level 10 BMI (Body Mass Index) 32.7 kg/m2 09/07/2014 10:03am Height 74 inches 6'2" Weight 285.00 lb Pain Level 9 BMI (Body Mass Index) 36.6 kg/m2 08/26/2014 10:24am Height 74 inches 6'2" Weight 284.00 lb with shoes (283lb 1 month ago ) Heart Rate 88 /min BP Systolic Sitting 94 mmHg Ra lg cuff BP Diastolic Sitting 60 mmHg Ra lg cuff Respiratory Rate 17 /min Pain Level 9 pt states pain in knees BMI (Body Mass Index) 36.5 kg/m2 Ejection Fraction 55-60% date 08/20/14 08/10/2014 11:55am Height 74 inches 6'2" Weight 260.00 lb with shoes Heart Rate 70 /min BP Systolic Sitting 90 mmHg Ra lg cuff BP Diastolic Sitting 60 mmHg Ra lg cuff BP Systolic Standing 82 mmHg Ra lg cuff BP Diastolic Standing 52 mmHg Ra lg cuff Respiratory Rate 16 /min BMI (Body Mass Index) 33.4 kg/m2 Ejection Fraction 50-55% 05/28/11 02/04/2014 8:43am Height 74 inches 6'2" Weight 280.00 lb Heart Rate 80 /min BP Systolic 102 mmHg BP Diastolic 70 mmHg BMI (Body Mass Index) 35.9 kg/m2 Results Test Date Facility Test Result H/L Range Note Surgical 12/25/2012 [facility] S RUN DATE: [address] 12/26/ <[place] [address] NOTE> [phone] Lipid Profile 07/24/2011 [facility] Triglyceride 108 mg/dL 40 -200 (Trig/Chol/HDL) [address] [place] [address] [phone] Cholesterol 133 mg/dL Less Than 200 2 High Density Lipoprotein 25 mg/dL Low 40-60 3 Cholesterol/HDL Ratio 5.32 AVERAGE High 1-4.97 Low Density Lipoprotein 86 mg/dL Less Than 100 4 Basic Metabolic Panel 07/24/2011 [facility] Sodium 137 mmol/L 135-[address] [place] [address] [phone] Potassium 4.5 mmol/L 3.5-5.0 Chloride 102 mmol/L 101-111 Co2 (Carbon Dioxide) 31.0 mmol/L 22-32 Anion Gap 4.0 mmol/L 2-11 5 Glucose 76 mg/dL 70-100 BUN 10 mg/dL 6-24 Creatinine 0.7 mg/dL 0.50-1.40 One Over Creatinine 1.42 BUN/Creatinine Ratio 14.3 8-20 Calcium 8.2 mg/dL 8.1-9.9 eGFR Non- 111.8 > 60 eGFR 143.8 > 60 6 Drug Abuse 10 Serum 05/28/2011 [facility] Amphetamines Negative () [address] [place] [address] [phone] Barbiturates Negative () Benzodiazepines Negative () Cocaine And Metabolite Negative () Opiates Negative () Phencyclidine Negative () THC (Marijuana) Metabolite Negative () Methadone Negative () Methaqualone Negative () Propoxyphene Negative () Specimen Type Serum Plasma () 7 Laboratory test 12/28/2010 [facility] BUN 23 mg/dL 6-24 [address] [place] [address] [phone] Creatinine 12/28/2010 [facility] Creatinine 0.9 mg/dL 0.50- 1.40 [address] [place] [address] [phone] One Over Creatinine 1.11 eGFR Non- 83.9 > 60 eGFR 107.9 > 60 8 1 RUN DATE: 12/26/12 [facility] LAB LIVE PAGE 1 RUN TIME: [address] [place], [place] [address] Specimen Inquiry Name: FAMILIA SETHI : [address]: Yusuf Pressley MD Acct: [id number] Unit: [id number] AGE: 72 Location: OR Re12/25/12 SEX: M Status: REG SDC SPEC: [id number] DAI: 12/25/12- SUBM DR: Yusuf Pressley MD REQ: [id number] RECD: 12/25/12 STATUS: SOUT _ ORDERED: LEVEL III FINAL DIAGNOSIS Shoulder, left, shavings: Hyperplastic synovium with fibrosis and myxoid change, and fragments of fibrocartilage with myxoid degeneration. PRE-OPERATIVE DIAGNOSIS Left arm arthritis GROSS DESCRIPTION The specimen is received in formalin labeled Familia Sethi, Left Shoulder Shavings, and consists of a 3.0 x 2.5 x 1.5 cm. aggregate of yellow and white tissue fragments. Upper Cutter Out sections, one cassette. Signed (signature on file) Aaron Perez MD 1532 END OF REPORT * ML=Testing performed at Main Lab DEPARTMENT OF PATHOLOGY, [address] [place] [address] Aaron Perez M.D. Director [facility] Permit #[id number] 2 CHOLESTEROL INTERPRETATION: Desirable: Less than 200 MG/DL Borderline-High Risk: 200-239 MG/DL High-Risk: 240 MG/DL and over 3 HDL INTERPRETATION: Undesirable: High Risk: Less than 40 MG/DL Desirable: Low Risk: Greater than 60 MG/DL 4 LDL INTERPRETATION: Low Risk Optimal Level: LDL Less than 100 MG/DL Near or Above Optimal: LDL 100-129 MG/DL Borderline High Risk: LDL 130-159 MG/DL High Risk: LDL 160-189 MG/DL Very High Risk: LDL Greater than 189 MG/DL 5 Anion gap measurement may be of limited value in the presence of any alkalosis, especially in a combined acid base disorder. . 6 Because ethnic data is not always readily available, this report includes an eGFR for both -Americans and non- Americans. The National Kidney Disease Education Program (NKDEP) does not endorse the use of the MDRD equation for patients that are not between the ages of 18 and 70, are , have extremes of body size, muscle mass, or nutritional status, or are non- or non-. According to the National Kidney Foundation, irrespective of diagnosis, the stage of the disease is based on the level of kidney function: Stage Description GFR(mL/min/1.73 m(2)) 1 Kidney damage with normal or decreased GFR 90 2 Kidney damage with mild decrease in GFR 60-89 3 Moderate decrease in GFR 30-59 4 Severe decrease in GFR 15-29 5 Kidney failure <15 (or dialysis) 7 This specimen was screened by Immunoassay. Any positive result is confirmed by Gas Chromatography with Mass Spectrometry (GC/MS). The following threshold concentrations are used for this analysis: DRUG SCREENING CONFIRMATION THRESHOLD THRESHOLD Amphetamines 50 ng/mL 10 ng/mL Barbiturates 100 ng/mL 100 ng/mL Benzodiazepines 20 ng/mL See individual drug Cocaine and Metabolite 25 ng/mL 30 ng/mL Opiates 10 ng/mL 10 ng/mL Phencyclidine (PCP) 8 ng/mL 8 ng/mL Cannabinoids 5 ng/mL 2 ng/mL Methadone 25 ng/mL 50 ng/mL Methaqualone 100 ng/mL 100 ng/mL Propoxyphene 50 ng/mL 50 ng/mL Test Performed by: [facility] [employer]. [address] [place] [id number] 8 Because ethnic data is not always readily available, this report includes an eGFR for both -Americans and non- Americans. The National Kidney Disease Education Program (NKDEP) does not endorse the use of the MDRD equation for patients that are not between the ages of 18 and 70, are , have extremes of body size, muscle mass, or nutritional status, or are non- or non-. According to the National Kidney Foundation, irrespective of diagnosis, the stage of the disease is based on the level of kidney function: Stage Description GFR(mL/min/1.73 m(2)) 1 Kidney damage with normal or decreased GFR 90 2 Kidney damage with mild decrease in GFR 60-89 3 Moderate decrease in GFR 30-59 4 Severe decrease in GFR 15-29 5 Kidney failure <15 (or dialysis) Procedures Date Code Description Status 05/25/2018 77143 EKG, Interpretation Only Completed 05/24/2018 55973 ECHO Transthorasic Realtime 2D W Doppler & Color Flow Hosp Completed 03/13/2018 86615 Inject/Drain Joint/Bursa Major W/O US Completed 01/12/2018 27693 EKG, Interpretation Only Completed 09/05/2017 49596 ECHO Transthorasic Realtime 2D W Doppler & Color Flow Hosp Completed 09/04/2017 96424 EEG Recording Awake & Drowsy Completed 09/03/2017 03997 EKG, Interpretation Only Completed 06/20/2017 62843 Inject/Drain Joint/Bursa Major W/O US Completed 01/11/2017 70198 Inject/Drain Joint/Bursa Major W/O US Completed 10/09/2016 32836 Inject/Drain Joint/Bursa Major W/O US Completed 09/01/2016 32361 Mobile Cardiovascular Telemetry Over 24 HR Up To 30 Days Completed 08/30/2016 23628 EKG Tracing & Interpretation Completed 08/19/2016 55555 EKG, Interpretation Only Completed 08/17/2016 72941 EKG, Interpretation Only Completed 08/16/2016 97718 EEG Recording Awake & Drowsy Completed 08/14/2016 19570 Stress Test Completed 08/14/2016 97370 Myocardial Perfusion Imaging Tomographic (Spect) Multiple Completed Studies 08/12/2016 91345 Mobile Cardiovascular Telemetry Over 24 HR Up To 30 Days Completed 08/07/2016 17539 ECHO Transthorasic Realtime 2D W Doppler & Color Flow Hosp Completed 08/02/2016 47461 Holter Monitor Review (24 hr) review & interp only Completed 08/01/2016 40287 ECG Monitor/Recording W/Visual Superimposition Scanning Completed 07/24/2016 40890 EKG Tracing & Interpretation Completed 09/07/2014 99439 Inject/Drain Joint/Bursa Major W/O US Completed 08/20/2014 45917 ECHO Transthoracic, Real-Time 2D With Doppler And Color Completed Flow 08/17/2014 57929 Myocardial Perfusion Imaging Tomographic (Spect) Multiple Completed Studies 08/17/2014 39385 Stress Test Completed 08/17/2014 69765 Holter Monitoring 24 HR New Completed 08/10/2014 01164 EKG Tracing & Interpretation Completed 02/04/2014 02151 Xray Knee 3 Views Completed 02/04/2014 84636 Xray Knee 3 Views Completed 02/04/2014 78872 Rad Exam; Hip Unilat Completed 02/04/2014 32914 Rad Exam; Pelvis Completed 02/04/201407284 Inject/Drain Joint/Bursa Major W/O US Completed 04/22/201375520 Inject/Drain Joint/Bursa Major W/O US Completed 12/25/2012 19590 Arthroscopy Shoulder Debridement Extensive Completed 12/25/2012 60870 Arthroscopy Shoulder Debridement Extensive Completed 11/12/201201703 Inject/Drain Joint/Bursa Major W/O US Completed 09/27/2012 71035 Rad Exam; Hip Unilat Completed 09/27/2012 64912 Rad Exam; Hip Unilat Completed 09/27/2012 25681 Rad Shoulder Comp, Min. 2 Views Completed 09/27/2012 24498 Rad Exam; Pelvis Completed 11/30/2011 38748 Rad Shoulder Comp, Min. 2 Views Completed 12/26/2010 69858 Rad Shoulder Comp, Min. 2 Views Completed 12/26/2010 47992 Rad Exam; Pelvis Completed 12/26/201079116 Inject/Drain Joint/Bursa Major W/O US Completed 01/17/2010 67233 Rad Exam; Pelvis Completed 01/17/2010 23009 Rad Exam; LS Spine Comp Completed 06/04/2003 19559 EKG, Interpretation Only Completed Encounters Type Date Location Provider Dx Diagnosis Office Visit 05/30/2018 [facility] R41.82 Altered mental 11:12a jocelyn Guzman, status, Hospitalists M.DOneil unspecified J44.0 Chronic obstructive pulmon disease w acute lower resp infct J09.x1 Influenza due to ident novel influenza A virus w pneumonia J44.1 Chronic obstructive pulmonary disease w (acute) exacerbation [facility] mental 11:12a Assoc,jocelyn Zaidi M.D. status, Hospitalists unspecified J44.0 Chronic obstructive pulmon disease w acute lower resp infct J09.x1 Influenza due to ident novel influenza A virus w pneumonia J44.1 Chronic obstructive pulmonary disease w (acute) exacerbation Office Visit 05/28/2018 [facility] Jose Alejandro Camp J96.21 Acute and chronic 11:11a Assoc,pc MD Marah respiratory Hospitalists failure with hypoxia J96.22 Acute and chronic respiratory failure with hypercapnia J44.0 Chronic obstructive pulmon disease w acute lower resp infct J09.x1 Influenza due to ident novel influenza A virus w pneumonia J44.1 Chronic obstructive pulmonary disease w (acute) exacerbation Office Visit 05/25/2018 11:11a [facility] Ari J96.21 Acute and chronic Assoc,GRACY Waite respiratory Hospitalists failure with hypoxia J96.22 Acute and chronic respiratory failure with hypercapnia J44.0 Chronic obstructive pulmon disease w acute lower resp infct J09.x1 Influenza due to ident novel influenza A virus w pneumonia J44.1 Chronic obstructive pulmonary disease w (acute) exacerbation Office Visit 05/24/2018 11:10a [facility] Ari J96.01 Acute respiratory Assoc,GRACY Waite failure with Hospitalists hypoxia J44.0 Chronic obstructive pulmon disease w acute lower resp infct J11.1 Flu due to unidentified influenza virus w oth resp manifest J44.1 Chronic obstructive pulmonary disease w (acute) exacerbation Office [facility]2018 [facility] J[facility]22 Acute and chronic Assoc,jocelyn Grove M.D. respiratory Hospitalists failure with hypercapnia E87.2 Acidosis E72.20 Disorder of urea cycle metabolism, unspecified G47.33 Obstructive sleep apnea (adult) (pediatric) Office Visit 01/13/2018 [facility] Obstructive sleep Assoc,jocelyn Grove M.D. apnea (adult) Hospitalists (pediatric) E72.20 Disorder of urea cycle metabolism, unspecified Office Visit 01/12/2018 10:38a [facility] J96.22 Acute and chronic Assoc,jocelyn Grove M.D. respiratory Hospitalists failure with hypercapnia E87.2 Acidosis E72.20 Disorder of urea cycle metabolism, unspecified G47.33 Obstructive sleep apnea (adult) (pediatric) Office Visit 09/11/2017 9:48a [facility] Kacie J81.0 Acute pulmonary Assoc,pc Radha Roldan, edema Hospitalists [employer] SAL[employer] SPECIALIST D62 Acute posthemorrhagic anemia R42 Dizziness and giddiness S30.1xxA Contusion of abdominal wall, initial encounter Office Visit 09/10/2017 9:47a [facility] Kaylyn J81.0 Acute pulmonary Assoc,pc Lasha, [employer] SAL[employer] SPECIALIST edema Hospitalists D62 Acute posthemorrhagic anemia R42 Dizziness and giddiness S30.1xxA Contusion of abdominal wall, initial encounter Office Visit 09/09/2017 9:46a [facility] Kaylyn J81.0 Acute pulmonary Assoc,jocelyn Colby, [employer] SPECIALIST edema Hospitalists R42 Dizziness and giddiness D62 Acute posthemorrhagic anemia S30.1xxA Contusion of abdominal wall, initial encounter Office Visit 09/08/2017 9:46a [facility] Kaylyn J81.0 Acute pulmonary Assoc,pc Lasha, [employer] SAL[employer] SPECIALIST edema Hospitalists R42 Dizziness and giddiness D62 Acute posthemorrhagic anemia S30.1xxA Contusion of abdominal wall, initial encounter Office Visit 09/07/2017 9:45a [facility] Kaylyn J81.0 Acute pulmonary Assoc,jocelyn Colby, [employer] SAL[employer] SPECIALIST edema Hospitalists R42 Dizziness and giddiness D62 Acute posthemorrhagic anemia Office Visit 09/06/2017 9:43a [facility] Kaylyn J81.0 Acute pulmonary Assoc,jocelyn Colby, [employer] SAL[employer] SPECIALIST edema Hospitalists D62 Acute posthemorrhagic anemia R42 Dizziness and giddiness R40.0 Somnolence Office Visit 09/05/2017 9:42a [facility] Kaylyn J81.0 Acute pulmonary Assoc,pc Lasha, [employer]IST edema Hospitalists R40.0 Somnolence R42 Dizziness and giddiness D62 Acute posthemorrhagic anemia Office Visit 09/04/2017 9:40a [facility] Adeline Chavez J81.0 Acute pulmonary Assoc,pc N.P. edema Hospitalists R40.0 Somnolence R42 Dizziness and giddiness S30.1xxA Contusion of abdominal wall, initial encounter Office Visit 09/03/2017 9:39a [facility] Adeline Chavez, J81.0 Acute pulmonary Assoc,pc N.POneil edema Hospitalists R40.0 Somnolence R42 Dizziness and giddiness S30.1xxA Contusion of abdominal wall, initial encounter Office Visit 09/02/2017 9:38a [facility] Ari J81.0 Acute pulmonary Assoc,pc GRACY James edema Hospitalists R40.0 Somnolence R42 Dizziness and giddiness S30.1xxA Contusion of abdominal wall, initial encounter Office Visit 09/01/2017 9:26a [facility] Ari R42 Dizziness and Assoc,GRACY Waite giddiness Hospitalists S30.1xxA Contusion of abdominal wall, initial encounter I95.9 Hypotension, unspecified W19.xxxA Unspecified fall, initial encounter Office Visit 08/31/2017 9:21a [facility] Areli R42 Dizziness and Assoc,jocelyn Macias NP giddiness Hospitalists S30.1xxA Contusion of abdominal wall, initial encounter I95.9 Hypotension, unspecified W19.xxxA Unspecified fall, initial encounter Office Visit 01/11/2017 [facility] Franck Burleson, M19.012 Primary 10:30a Services Of MMarcus osteoarthritis, left C.M.A. shoulder M19.011 Primary osteoarthritis, right shoulder M51.86 Other intervertebral disc disorders, lumbar region Office Visit 10/09/2016 [facility] Franck Burleson, M17.12 Unilateral primary 2:15p Services Of MOneilDOneil osteoarthritis, left C.M.A. knee M17.11 Unilateral primary osteoarthritis, right knee M17.0 Bilateral primary osteoarthritis of knee Office Visit 08/30/2016 11:00a [facility] Brad Jacobsen I48.0 Paroxysmal atrial Of Fritz Jacob M.D., fibrillation [facility], [facility] Office Visit 08/21/2016 11:25a [facility] R56.9 Unspecified Assoc,yonas Sanchez M.D. R50.9 Fever, unspecified R40.0 Somnolence G89.29 Other chronic pain Office Visit 08/20/2016 [facility] R56.9 Unspecified 11:25a Assoc,pc Stallone, M.D. convulsions Hospitalists R50.9 Fever, unspecified R40.0 Somnolence G89.29 Other chronic pain Office Visit 08/19/2016 [facility] R50.9 Fever, 11:25a Assoc,jocelyn Mccullough M.D. unspecified Hospitalists R56.9 Unspecified convulsions R40.0 Somnolence G89.29 Other chronic pain Office Visit 08/18/2016 [facility] R50.9 Fever, 11:24a Assoc,jocelyn Mccullough M.D. unspecified Hospitalists R56.9 Unspecified convulsions R40.0 Somnolence G89.29 Other chronic pain Office Visit 08/16/2016 11:23a [facility] Ashok R50.9 Fever, Assoc,jocelyn Grove M.D. unspecified Hospitalists R40.0 Somnolence R56.9 Unspecified convulsions G89.29 Other chronic pain Office Visit 08/16/2016 Neurohospitalist [place] Wall R56.9 Unspecified 1:30p Clinic Klarissa Fleming convulsions I67.9 Cerebrovascular disease, unspecified Office Visit 08/15/2016 11:22a [facility] Valente R50.9 Fever, Assoc,pc MD Arthur unspecified Hospitalists R40.0 Somnolence R56.9 Unspecified convulsions G89.29 Other chronic pain Office Visit 08/15/2016 Neurohospitalist Gatito R41.82 Altered mental 1:30p Clinic MD Lindsay status, unspecified R50.9 Fever, unspecified R56.9 Unspecified convulsions Office Visit 07/24/2016 1:15p [facility] Of Brad Jacobsen R00.2 Palpitations Fritz Jacob M.D., [facility], [facility] R06.00 Dyspnea, unspecified 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 shoulder Z96.641 Presence of right artificial hip joint M25.551 Pain in right hip Office Visit 04/24/2015 [facility] Martin Ewing R07.9 Chest pain, 12:39p Assoc,pc Klarissa Morton,FACP unspecified Hospitalists T40.601A Poisoning by unsp narcotics, accidental, init Office Visit 09/07/2014 9:30a Orthopedic Franck Burleson 715.96 Osteoarthrosis Services Of Klarissa Unspec Genlzd Or C.M.A. Localized Lower Leg 715.36 Osteoarthrosis Localzd Not Spec Prime Or 2Ndy Lower Leg Office Visit 08/26/2014 [place] Brad Jacobsen 414.01 Coronary 10:30a Cardiology Of Klarissa Jacob, Atherosclerosis [facility], [facility] [place] Office Visit 08/10/2014 [place] Brad Jacobsen 414.01 Coronary 12:15p Cardiology Of Klarissa Jacob, Atherosclerosis [facility], [facility] [place] 785.1 Palpitations Office Visit 05/18/2014 2:07p Neurohospitalist Clinic [place] Wall 784.0 Headache Klarissa Fleming 780.79 Malaise And Fatigue Other 787.02 Nausea Alone Office Visit 02/04/2014 8:15a Orthopedic Franck Burleson 716.96 Arthropathy Unspec Services Of [place] Lower Leg C.M.A. 719.45 Pain Joint Pelvic Region & Thigh 338.29 Other Chronic Pain Office Visit 04/22/2013 10:15a Racheal Brooke5.11 Osteoarthrosis Services Of M.DOneil Localized Prim C.M.A. Shoulder Region Office Visit 12/05/2012 11:45a Margarita Pressley 726.10 Bursae & Tendon Services Of [place] Disorders Shoulder C.M.A. Region Unspec Office Visit 11/12/2012 11:45a Racheal Brooke5.11 Osteoarthrosis Services Of M.DOneil Localized Prim C.M.A. Shoulder Region 718.81 Derangement Joint Other Not Elsewhere Class Shoulder 726.19 Shoulder Disorders Other Spec Office Visit 09/27/2012 10:15a Sarina Jimenez.11 Osteoarthrosis Services Of M.D. Localized Prim C.M.A. Shoulder Region V43.64 Hip Replacement By Other Means Office Visit 11/30/2011 Sarina Brooke.11 Osteoarthrosis 11:00a Services Of C.M.A. Klarissa Localized Prim Shoulder Region Office Visit 02/06/2011 Orthopedic Franck Burleson, 716.91 Arthropathy Unspec 8:30a Services Of Leighton Cyr Shoulder Region Office Visit 01/13/2011 Neurosurgery Sheldon Romero 431 Hemorrhage 10:15a Services Of Fritz Funes M.D. Intracerebral Office Visit 12/28/2010 Neurosurgery Sheldon Romero 436 Cerebrovascular 2:15p Services Of Fritz Funes M.D. Disease Acute Ill-Defined Office Visit 12/26/2010 Orthopedic Franck Burleson, 716.91 Arthropathy Unspec 8:45a Services Of Leighton Cyr Shoulder Region 996.77 Complication Due To Internal Joint Prosthesis V43.64 Hip Replacement By Other Means Office Visit 01/17/2010 9:30a Orthopedic Franck Burleson, 722.93 Disc Disorder Services Of Leighton Cyr Other & Unspec Lumbar Region 724.02 Spinal Stenosis, Lumbar Region, W/O Neurogenic Claudication 721.3 Spondylosis Lumbar W/O Myelopathy Plan of Treatment Future Appointment(s):07/23/2018 1:00 pm - Traveling ECHO 1 at [facility]08/16/2018 11:30 am - Brad Jacob M.D., [facility], [facility] at [facility]03/13/2018 - Franck Burleson M.D.M17.12 Unilateral primary osteoarthritis, left kneeFollow up:Follow up: 2018 as needed, after end of May for knee shots Stay active with your tfcotrE32.11 Unilateral primary osteoarthritis, right knee
[2018-07-28] MEDS ORDERED: Furosemide IV* 10 MG/ML VIAL (40 MG) IV ONE (14:51)
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
[2018-07-28 15:34] LABS: ABS Basophils 0 10^3/ul (0-0.2); ABS Eosinophils 0.6 10^3/ul (0-0.6); ABS Lymphocytes 1.4 10^3/ul (1.0-4.8); ABS Monocytes 0.7 10^3/ul (0-0.8); ABS Nucleated RBC 0 10^3/ul; Eosinophil % 6.5 %; Hematocrit 36 % (36-46); Hemoglobin 11.8 g/dL (14.0-18.0); Lymphocyte % 14.2 %; Mean Corpuscular HGB Conc 33 g/dL (31-36); Mean Corpuscular Hemoglobin 32 pg (27-31); Mean Corpuscular Volume 97 fL (80-94); Mean Platelet Volume 8.4 fL (7.4-10.4); Nucleated Red Blood Cells % 0; Platelet Count 158 10^3/uL (150-450); Red Blood Count 3.73 10^6 /uL (4.18-5.48); Red Cell Distribution Width 14 % (10.5-15); White Blood Count 9.7 10^3/uL (3.5-10.8)
[2018-07-28 15:52] LABS: Albumin 3.3 g/dL (3.2-5.2); Albumin/Globulin Ratio 1.4 (1-3); C Reactive Protein 5.09 mg/L (<8.01); EGFR African American 158.5 (>60); Globulin 2.3 g/dL (2-4); Potassium 3.9 mmol/L (3.5-5.0); Total Bilirubin 0.4 mg/dL (0.2-1.0); Total Protein 5.6 g/dL (6.4-8.9)
[2018-07-28 15:55] LABS: Troponin I 0.02 ng/mL (<0.04)
[2018-07-28 15:56] LABS: CKMB ng/mL 2.4 ng/mL (0.6-6.3)
[2018-07-28 16:07] LABS: Activated Partial Thrombo Time 27.4 seconds (26.0-36.3); INR 1.01 (0.82-1.09)
[2018-07-28 18:48] LABS: ABS Basophils 0.1 10^3/ul (0-0.2); ABS Eosinophils 0.1 10^3/ul (0-0.6); ABS Lymphocytes 1.5 10^3/ul (1.0-4.8); ABS Monocytes 0.9 10^3/ul (0-0.8); ABS Neutrophils 7.9 10^3/ul (1.5-7.7); ABS Nucleated RBC 0 10^3/ul; Eosinophil % 1.2 %; Hematocrit 35 % (36-46); Hemoglobin 11.7 g/dL (14.0-18.0); Lymphocyte % 14.2 %; Mean Corpuscular HGB Conc 33 g/dL (31-36); Mean Corpuscular Hemoglobin 32 pg (27-31); Mean Corpuscular Volume 97 fL (80-94); Mean Platelet Volume 8.7 fL (7.4-10.4); Nucleated Red Blood Cells % 0; Platelet Count 182 10^3/uL (150-450); Red Blood Count 3.63 10^6 /uL (4.18-5.48); Red Cell Distribution Width 14 % (10.5-15); White Blood Count 10.5 10^3/uL (3.5-10.8)
[2018-07-28] MEDS ORDERED: Albuterol 2.5 MG/3 ML NEB.SOL* (0.083%) INH PRN (20:18)
[2018-07-28] MEDS ORDERED: Albuterol HFA INHALER* 8 gm MDI INH PRN (20:18)
[2018-07-28] MEDS ORDERED: Acetaminophen TAB* 325 MG PO PRN (20:23)
[2018-07-28] MEDS ORDERED: Ondansetron INJ* 2 MG/ML VIAL IV PRN (20:32)
[2018-07-28] MEDS ORDERED: Tamsulosin CAP* 0.4 MG PO SCH (21:00)
[2018-07-28] MEDS ORDERED: Fluticasone-Salmeterol 500-50* DISKUS INH SCH (21:00)
[2018-07-28] MEDS ORDERED: Metoprolol Succinate XL TAB* 50 MG PO SCH (21:00)
[2018-07-28] MEDS ORDERED: Mometasone/Formoter 200/5 MDI INH SCH (22:05)
[2018-07-28] MEDS ORDERED: oxyCODONE SR TAB(*) 15 MG TAB.SR PO SCH (23:00)
[2018-07-28] MEDS: Pantoprazole TAB * 40 MG TAB PO SCH (23:24)
[2018-07-28] MEDS: guaiFENesin ER TAB 600 MG PO SCH (23:24)
[2018-07-29 00:53] LABS: Influenza A Molecular NEGATIVE (Negative); Influenza B Molecular NEGATIVE (Negative)
--- NOTE | 2018-07-29 01:03 | HP ---
HISTORY AND PHYSICAL: DATE OF ADMISSION: 07/28/18 CHIEF COMPLAINT: Nosebleed. PRIMARY CARE PROVIDER: Dr. Royal Paz. CITY DESIGNER: Rekha Sethi, patient's . CODE STATUS: Full. SOURCE OF INFORMATION: History of present illness is obtained by patient and review of medical chart and patient is a fair historian. HISTORY OF PRESENT ILLNESS: This is a 78-year-old male with a past medical history of COPD; on chronic home oxygen at 4 L, heart failure with reduced ejection fraction at 45% in July 2018, sleep apnea; intermittently compliant on BiPAP, chronic pain; on opiates, neurogenic bladder of unclear etiology requiring self- cath, CAD and history of CVA without deficit, paroxysmal atrial fibrillation; not on anticoagulation who presented this evening with nosebleed. Patient reports that he woke up this morning and took off his BiPAP mask to cough and he coughed up a large blood clot about the size of half a golf ball. He called emergency medical services and they found him to be hypoxic into the low 80s and they started him back on BiPAP and brought him to the emergency room. Patient states he was in his usual state of health prior. He has issues with chronic hypercarbic respiratory failure and has been admitted for the same in the past. His last admission was on 07/05/18 and he was only discharged on 07/13/18. Some of this is secondary to his compliance with BiPAP at home as well as his use of chronic sedating medications, but otherwise he had had no symptoms of prodrome, no chest pain, no increasing cough with sputum, no pleuritic chest pain, no changes to appetite. He does take aspirin 325 mg assumed to be for his paroxysmal atrial fibrillation, but takes no other blood thinners. EMERGENCY ROOM COURSE: His blood pressure was 136/120, temperature 97.1, heart rate in fib in the 100s, satting 94% on BiPAP with 100% FiO2, respiratory rate is 24 as he arrived. His initial blood gas was drawn when he arrived to the emergency room and it was 7.31, 73, 179, 100. He remained on BiPAP. Labs were drawn. His CBC was stable. His BNP was unremarkable, save for an elevated CO2 , which is consistent with his baseline and high. An EKG was done, which showed atrial fibrillation with left bundle-branch block with no changes from his prior hospitalization. A chest x-ray was done, which showed crowed lung volumes, cardiomegaly, and edema. Brain CT was done, which showed air-fluid levels in the frontal and maxillary sinuses, but otherwise no acute intracranial pathology. The patient was removed off BiPAP after 2 hours and was found to be stable on his home 4 L nasal cannula. His repeat gas was 7.4, 60, 119, and 99. Hospitalist team was asked to evaluate the patient for further management and treatment. He did have a nasal tamponade "Rhino Rocket" placed in his nose while in the emergency room, which effectively discontinued the bleed and he also received Lasix 40 mg IV x1, 2 nebulizing treatments while in the emergency room before being admitted to the floor. PAST MEDICAL HISTORY: 1. COPD and chronic hypercarbic respiratory failure, on 4 L nasal cannula at baseline. 2. Heart failure with reduced ejection fraction at 45% in July 2018. 3. INDIGO, intermittently compliant on BiPAP. 4. Chronic pain, on long-term opiate use. 5. Neurogenic bladder of unclear etiology, requiring 4 times daily self- catheterization. 6. CAD and history of CVA without deficit. 7. Paroxysmal atrial fibrillation, not on anticoagulation. 8. History of left arm arteriovenous malformation with repair. 9. ?Prior CT lungs showing lung nodules under surveillance, though it seems these have been lost to followup. PAST SURGICAL HISTORY: He is status post bilateral hip replacements, status post cholecystectomy, status post tonsillectomy, and status post AVM repair in left arm. MEDICATIONS: 1. Aspirin 325 mg p.o. daily. 2. Symbicort 2 puffs inhaled b.i.d. 3. Avodart 0.5 mg p.o. daily. 4. Lexapro 20 mg p.o. daily. 5. Breo Ellipta inhaler 1 puff inhaled daily. 6. Lasix 20 to 40 mg p.o. daily p.r.n. 7. Meloxicam 15 mg p.o. daily. 8. Omeprazole 20 mg p.o. b.i.d. 9. Albuterol nebulizer solution q.4 to 6 hours p.r.n. for shortness of breath. 10. Lidocaine patch transdermally daily. 11. Metoprolol succinate 12.5 mg p.o. b.i.d. 12. Multivitamin 1 tab p.o. daily. 13. Extended release oxycodone 15 mg p.o. daily. ALLERGIES: ORAL and IV DYE. FAMILY HISTORY: Patient's father is from coronary artery disease. Mother is with history of breast cancer and history of diabetes. SOCIAL HISTORY: Patient is retired. He lives with his . He is a lifetime nontobacco user and social alcohol user with scant use and lifetime non-illicit user. 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 REVIEW OF SYSTEMS: Patient denies fevers, chills, or malaise. HEENT: Does endorse headache. No vision changes. No sore throat. Nasal bleed starting for 1 day. Cardiovascular: Denies chest pains, palpitations, or orthopnea. Respiratory: Does endorse shortness of breath and cough, nonproductive, aside from 1 episode of hemoptysis. No change in sputum color. No pleuritic chest pain. GI: Denies nausea, vomiting, diarrhea, or abdominal pain. : Denies dysuria or hematuria. Musculoskeletal: Denies myalgias, arthralgias, or weakness. Skin: Denies rashes or lesions. Neurologic: Denies focal weakness or numbness. Psychiatric: Denies depression or anxiety. Endocrine: Denies polyuria or polydipsia. Heme: Denies easy bruising, bleeding, or lymphadenopathy. PHYSICAL EXAMINATION GENERAL: This is a chronically ill-appearing man, but in no acute distress, sitting on the hospital bed, A and O x2 to 3 VITAL SIGNS: At time of physical exam are blood pressure 125/75, heart rate 102 ; in fib, respiratory rate 19, oxygen saturation 97% on 4 L nasal cannula. HEENT: His pupils are equal and reactive to light bilaterally. His extraocular muscles are intact and his sclerae are anicteric. Right naris has a tamponade "Rhino Rocket" placed. Oropharynx is with moist mucous membranes without lesions. NECK: Supple with no supraclavicular or cervical lymphadenopathy. LUNGS: With bilateral crackles to the mid lung bases. No kesha consolidation or wheezing. CARDIAC: Irregularly irregular with no murmurs, rubs, or gallops. ABDOMEN: Belly is soft, nontender, and nondistended with normoactive bowel sounds. SKIN: Without lesions or ulcers. MUSCULOSKELETAL: He moves all 4 limbs spontaneously. EXTREMITIES: He has 2+ mild pitting edema to bilateral lower extremities. Chronic venostasis and palpable 2+ pulses and bilateral DPs. NEURO: No focal deficits, though poor attention span, CN 2-12 intact AOx2, at times clearing to 3 DIAGNOSTIC STUDIES/LAB DATA: Two CBCs were obtained with initial white blood cell count of 9.7, hemoglobin 11.8, hematocrit 36, and platelets of 158. Repeat CBC 4 hours later with hemoglobin 11.7 and hematocrit 35. BMP was obtained with sodium 141, potassium 3.9, chloride 103, carbon dioxide 34, anion gap 4, BUN 18, creatinine 0.6, glucose 156, lactic acid flat at 0.6, calcium is 8. LFTs done which show AST 18, ALT 10, alkaline phosphatase 91. Troponin 0.02 , BNP at 229. Albumin 3.3. INR was done which is 1.01. Blood gases were obtained, which showed first blood gas 7.31, 73, 179, and 100 and second blood gas 7.46, 60, 119, 99.3. Imaging includes a brain CT which shows no acute intracranial pathology and air - fluid levels in bilateral frontal sinuses, thought to be blood or possible infection. Chest x-ray shows small lung volumes, cardiomegaly, and bilateral interstitial edema. EKG shows atrial fibrillation with rates in the 90s with incomplete left bundle - branch block consistent with prior imaging. Labs and EKG are reviewed by myself. ASSESSMENT AND PLAN: This is a 78-year-old male with a past medical history of chronic obstructive pulmonary disease and chronic hypercarbic respiratory failure, heart failure with reduced ejection fraction at 45%, obstructive sleep apnea with intermittent compliance on CPAP, chronic pain; on opiates, neurogenic bladder of unclear etiology requiring self-cath, coronary artery disease, history of stroke without deficit, and paroxysmal atrial fibrillation; not on anticoagulation who presented this evening with epistaxis and acute-on- chronic hypercapnic respiratory failure requiring brief rescue BiPAP in the emergency room and quickly transitioned to his home oxygen requirement. 1. Epistaxis. He has been packed in the emergency room, particularly in the right naris with success of discontinuation of bleeding. This is all possibly exacerbated from wearing his CPAP with dry air and appears to be an anterior bleed given cessation of bleeding with frontal packing. I spoke with the head of our hospitalist team given we do not have ENT services inpatient in this hospitalization, although they have had success in obtaining outpatient followup appointments for patients with "Rhino Rockets" for removal and they are stable to be left in for 2 to 3 days. The hospitalist director felt this patient was stable for admission with this in place knowing that it could be removed as an outpatient and given that the likelihood that this was a posterior bleed was unlikely. Furthermore, CT of brain does show air-fluid levels, although this is likely blood and not infection. We will hold on antibiotics. 2. [id number] hypercapnic respiratory failure. This is likely triggered by multifactorial causes, nosebleed, pain medications, and pulmonary edema. He is status post BiPAP with excellent improvement. We will continue to diurese and continue to encourage BiPAP here in the hospital. He appears to be a chronic retainer and he does follow with pulmonology. He is compensated at this time with no need for further BiPAP, thus stable for the floor. 3. Heart failure with reduced ejection fraction. Patient on 20 to 40 mg of p.o. Lasix daily. We will continue with IV Lasix as he looks slightly volume overloaded with edema and we will resume 40 mg IV Lasix daily starting tomorrow morning. 4. Obstructive sleep apnea. We will continue to offer home CPAP nightly. 5. Chronic obstructive pulmonary disease. He is on baseline 4 L nasal cannula. We will continue to offer his home needs as well as nebulizer p.r.n. and home inhalers, which include inhaled corticosteroid and long-acting muscarinic agent. 6. BPH. We are holding his home Avodart and starting tamsulosin in its place. 7. Neurogenic bladder. No acute issues at this time. Will place ellison cath at this time in setting of active diuresis 8. Paroxysmal atrial fibrillation. Currently, KAELA-VASC score is greater than 4, although it appears that he and primary have had shared decision-making discussion and he has opted not for anticoagulation. He is on aspirin 325 mg, which will be on hold for now given his current admission for epistaxis. I did discuss the risks, albeit small of stroke, in holding antiplatelets in the setting of history of stroke, coronary artery disease, and paroxysmal atrial fibrillation and patient and his family have determined that the bleeding risks seem to outweigh the benefits. Continue on home beta blockers. 9. History of cerebrovascular accident. As above, holding aspirin, but continuing beta blockers. For some reason, this patient is not on a statin and we will suggest one on discharge. 10. Chronic pain. We will offer long-acting opiates at q day from BID 11. Coronary artery disease. As above, hold aspirin and continue beta blockers. 12. Gastroesophageal reflux disease. Hold home omeprazole and start pantoprazole. 13. Depression. Continue home Lexapro. 14. DVT prophylaxis. We will hold for now and offer thromboembolic disease stockings. 15. FEN. Heart-healthy diet. 16. Disposition. Patient is stable for admission to the [address] [place] [address] on telemetry. He has unstable vital signs and has been off rescue BiPAP for the last 4 hours with no decompensation. Furthermore, this is very consistent with his baseline breathing status and we will continue to diurese and hopefully discharge within the next 24 to 48 hours with outpatient ENT followup as this is his only presenting medical concern. 17. Code status is full. TIME SPENT: Forty-five minutes were spent on the planning of this admission with over half of that spent directly at the bedside with the patient providing direct patient care. The plan of care was discussed with the patient and his family including inpatient diuresis and possible followup in ENT outpatient clinic for removal of naris packing device and if further complications from an ENT standpoint, may need transferring. They fully understand and elect for admission. [id number]/[facility] #: [id number] DARREN
[2018-07-29 05:58] LABS: ABS Basophils 0 10^3/ul (0-0.2); ABS Eosinophils 0.4 10^3/ul (0-0.6); ABS Lymphocytes 2.1 10^3/ul (1.0-4.8); ABS Monocytes 0.8 10^3/ul (0-0.8); ABS Neutrophils 5.1 10^3/ul (1.5-7.7); ABS Nucleated RBC 0 10^3/ul; Eosinophil % 4.9 %; Hematocrit 34 % (36-46); Hemoglobin 11.1 g/dL (14.0-18.0); Mean Corpuscular HGB Conc 33 g/dL (31-36); Mean Corpuscular Hemoglobin 32 pg (27-31); Mean Corpuscular Volume 96 fL (80-94); Mean Platelet Volume 8.5 fL (7.4-10.4); Nucleated Red Blood Cells % 0.1; Platelet Count 137 10^3/uL (150-450); Red Cell Distribution Width 14 % (10.5-15); White Blood Count 8.5 10^3/uL (3.5-10.8)
[2018-07-29 06:17] LABS: BUN/Creatinine Ratio 36.2 (8-20); Calcium 8.7 mg/dL (8.6-10.3); EGFR African American 164.8 (>60); EGFR Non-African American 136.2 (>60); Potassium 3.6 mmol/L (3.5-5.0)
[2018-07-29] MEDS: Pantoprazole TAB * 40 MG TAB PO SCH (08:15)
[2018-07-29] MEDS: guaiFENesin ER TAB 600 MG PO SCH (08:15)
[2018-07-29] MEDS ORDERED: oxyCODONE SR TAB(*) 15 MG TAB.SR PO SCH (09:00)
[2018-07-29] MEDS ORDERED: Metoprolol Succinate XL TAB* 50 MG PO SCH (09:00)
[2018-07-29] MEDS ORDERED: Multivitamins/Minerals TAB PO SCH (09:00)
[2018-07-29] MEDS ORDERED: oxyCODONE SR TAB(*) 10 MG TAB.SR PO SCH (09:00)
[2018-07-29] MEDS ORDERED: Escitalopram * 20 MG TABLET PO SCH (09:00)
[2018-07-29] MEDS ORDERED: Lidocaine PATCH 5%* 1 PATCH TRANSDERM SCH (09:00)
[2018-07-29] MEDS ORDERED: Furosemide IV* 10 MG/ML VIAL (40 MG) IV SCH (09:00)
[2018-07-29] MEDS ORDERED: Sodium Phosphate ADULT ENEMA* 118 ml bottle PR PRN (11:45)
[2018-07-29] MEDS ORDERED: Bisacodyl SUPP* 10 MG SUPP PR PRN (11:45)
[2018-07-29 11:52] VITALS: BP 93/51
--- NOTE | 2018-07-29 20:38 | DS ---
CC: Dr. Royal Paz; Dr. Cortez; Dr. Guerrero, [facility] * DISCHARGE SUMMARY: DATE OF ADMISSION: 07/28/18 DATE OF DISCHARGE: 07/29/18 PRIMARY CARE PROVIDER: Dr. Royal Paz. DISCHARGE DIAGNOSES: 1. Acute hypercapnic respiratory failure in a patient with history of chronic hypoxemic respiratory failure due to epistaxis, status post Rhino Rocket placed in the right nostril by the ED provider. 2. Exacerbation of chronic systolic congestive heart failure with EF of 45% noted in July of 2018. SECONDARY DIAGNOSES: 1. History of chronic obstructive pulmonary disease, on oxygen at 4 L at baseline. 2. History of congestive heart failure, EF of 45% in July of 2018. 3. Obstructive sleep apnea, on CPAP. The patient is scheduled for sleep study , to be placed on BiPAP. 4. History of chronic pain, on long-term opiate use. 5. History of neurogenic bladder with self-catheterization. 6. Coronary artery disease. 7. History of cerebrovascular accident without deficits. 8. History of paroxysmal atrial fibrillation, not on anticoagulation. 9. History of left arm arteriovenous malformation with repair. MEDICATIONS AT DISCHARGE: Include: 1. Symbicort 2 puffs b.i.d. 2. Albuterol inhaler on a p.r.n. basis. 3. Albuterol nebulizer on a p.r.n. basis. 4. Avodart 0.5 mg daily. 5. Breo Ellipta 1 inhalation daily. 6. Mobic 15 mg daily. 7. Metoprolol succinate 12.5 mg b.i.d. 8. Multivitamin 1 tablet daily. 9. Omeprazole 20 mg b.i.d. 10. Oxycodone SR 15 mg daily. 11. Lexapro 20 mg daily. 12. Furosemide 40 mg daily. 13. Lidocaine patch 1 patch transdermally to upper back painful area as needed. LABORATORY DATA AND STUDIES PERFORMED DURING THE HOSPITAL STAY: Included on , pH of 7.4, pCO2 of 60, pO2 of 119, and bicarb of 32. On 07/29/18, white blood cell count of 14.5, hemoglobin of 11.1, hematocrit of 34, MCV of 96, and platelets of 137. On 07/29/18, sodium of 142, potassium of 3.6, chloride 101, carbon dioxide 37, BUN 21, creatinine 0.5. Portable chest x-ray on 07/28/18: "Cardiomegaly with pulmonary interstitial edema. Low lung volumes." HOSPITALIZATION COURSE: Familia Sethi is a 78-year-old male with history of paroxysmal atrial fibrillation, left bundle branch block, not on anticoagulation ; with history of chronic pain; obstructive sleep apnea, on CPAP; as well as chronic oxygen use due to COPD, who presented to the hospital after a sudden epistaxis that occurred when he got up in the morning and took off his CPAP mask. He came into the emergency department in acute distress with oxygen saturations in the 70s. He was treated with oxygen and a procedure with placement of the Rhino Rocket in his right nostril with good result. During this episode of epistaxis, he developed acute hypercapnic respiratory failure and required overnight hospital stay. He was placed on IV Lasix for a couple of doses with good results. By the time of discharge, he was back to his baseline oxygen needs at 4 L. I discussed with the patient that due to the Rhino Rocket in place, he will need to use a mask for his CPAP and not the nose mask that he usually uses. The patient has both kinds of the masks at home. I discussed the case briefly with the ENT provider from [facility], who recommended for the patient to follow up with his office in 2 to 3 days to take the device out of the nose. The patient is to call Dr. Guerrero's office and schedule an appointment on 08/01/18 or 08/02/18 for a followup. Until this evaluation is concluded, the patient is to continue to be taken off aspirin that was held during his hospital stay due to the epistaxis. His Lasix was placed at this point at 40 mg daily and in the past he used it from 20 to 40 mg on as-needed basis. The patient is also asked to follow up with his primary care provider in approximately 4 to 7 days. PHYSICAL EXAMINATION: At the time of discharge, blood pressure of 123/66, heart rate of 74 and irregular, respiratory rate 15, oxygen saturation 91% on 4 L of oxygen via nasal cannula, temperature 97.5. General: The patient is a very pleasant 78-year-old male, who is in no acute distress. Alert, awake, and oriented x3. HEENT: Head: Atraumatic, normocephalic. Eyes: Pupils are equal , reactive to light and accommodation. Oropharynx is clear. Mucosa moist. Neck : Supple. No JVD. No bruits bilaterally. Cardiovascular: Irregularly irregular rhythm. No murmurs. Respiratory: Fine crackles at bilateral bases, otherwise clear. Abdomen: Soft, nontender. Bowel sounds are present in all 4 quadrants. Extremities: There is +1 pitting pedal edema, which as per the patient is chronic. There is no clubbing or cyanosis. On evaluation of the patient's nose, the Rhino Rocket in the right nostril. There is no evidence of acute epistaxis present. CONDITION AT DISCHARGE: Stable. Please note that this is a short summary of the patient's hospitalization. Please refer to further medical records for details. TIME SPENT: Approximately 40 minutes was spent on the patient's discharge. [id number]/[facility] #: [id number] MTDD
[2018-07-29] MEDS ORDERED: Lidocaine Patch REMOVE* 1 NOTE MISC PATCH OFF SCH (21:00)
== END 2018-07-29 14:10 | disposition home or self-care (01) | DRG 189 ==
LOC: ED 14:36 → MEDTELE 20:14
PROVIDERS: ADMIT Internal Medicine; ATTEND Internal Medicine
PROC: 2Y41X5Z Packing of Nasal Region using Packing Material (ICD-10-PCS; principal; 2018-07-28)
DX: J96.22 Acute and chronic respiratory failure with hypercapnia (principal); I50.23 Acute on chronic systolic (congestive) heart failure; F33.9 Major depressive disorder, recurrent, unspecified; J96.11 Chronic respiratory failure with hypoxia; R04.0 Epistaxis; J44.9 Chronic obstructive pulmonary disease, unspecified; I48.0 Paroxysmal atrial fibrillation; G47.33 Obstructive sleep apnea (adult) (pediatric); G89.29 Other chronic pain; N31.9 Neuromuscular dysfunction of bladder, unspecified; I25.10 Atherosclerotic heart disease of native coronary artery without angina pectoris; K21.9 Gastro-esophageal reflux disease without esophagitis; I44.7 Left bundle-branch block, unspecified; Z96.643 Presence of artificial hip joint, bilateral; Z86.73 Personal history of transient ischemic attack (TIA), and cerebral infarction without residual deficits; Z99.81 Dependence on supplemental oxygen; Z99.89 Dependence on other enabling machines and devices; Z79.82 Long term (current) use of aspirin; Z79.899 Other long term (current) drug therapy; Z91.041 Radiographic dye allergy status; Z82.49 Family history of ischemic heart disease and other diseases of the circulatory system; Z83.3 Family history of diabetes mellitus; Z80.3 Family history of malignant neoplasm of breast
CPT/HCPCS: 36415; 70450; 71045; 80048; 80053; 82550; 82553; 82803; 83605; 83880; 84484; 85025; 85610; 85730; 86140; 93005; 94640; 94660; 99284; A9270-GY; J1940

== ENCOUNTER 2018-09-13 17:38 | Emergency (ER) | payer MEDICARE ==
--- OUTSIDE RECORDS SUMMARY | 2018-09-13 17:58 | XMS REPORT | Continuity of Care Document ---
:1940 External Reference #:[id number] Author Name Beverley Jones Care Team Providers Name Role Phone Royal Paz MD Primary Care Physician Unavailable Payers Date Identification Numbers Payment Provider Subscriber Effective: 2007 Policy Number: [id number] Medicare Familia Sethi PayID: [id number] [address] [place] [address] Policy [address]: [id number] [facility] Familia Sethi PayID: [id number] [address] [place] [address] Effective: 2010 Policy Number: [id number] BS Hansa Sethi Expires: 2013 PayID: [id number] [address] [address] RACHEL Rush [address] Effective: 2013 Policy Number: [id number] BS Hansa Sethi Expires: 2017 PayID: [id number] [facility] [id number] RACHEL Rush [address] Problems Active Problems Provider Date Coronary arteriosclerosis [facility] On[facility]: 2014 Palpitations Brad Jacob M.D., [facility] Onset: 08/10/2014 Difficulty breathing Brad Jacob M.D., [facility] Onset: 07/24/2016 Paroxysmal atrial fibrillation Brad Jacob M.D., RACHEL MEDINA Onset: Chest pain [facility] M.[facility]., [facility] Onset: 09/02/2018 Family History Date Family Member(s) Observation Comments Father CAD, DM Mother Cancer Social History Type Date Description Comments Sex Unknown Lives With Occupation Retired ETOH Use Denies alcohol use Tobacco Use Start: Unknown Patient has never smoked Recreational Drug Use Denies Drug Use Smoking Status Reviewed: 09/02/18 Patient has never smoked Exercise Type/Frequency Does not exercise Allergies, Adverse Reactions, Alerts Active Allergies Reaction Severity Comments Date NKDA 08/30/2016 Contrast Dye hives, itching Moderate 08/30/2016 Inactive Allergies NKDA 02/04/2014 Medications Active Medications SIG Qnty Indications Ordering Provider Date Metoprolol Succinate ER 1 tab daily 90tabs Brad Jacob, 08/02/2016 Klarissa, FACC, FASNC 25mg Tablets ER 24HR Zofran 2 tab by mouth 80tabs Ronald Rashid 08/06/2014 4mg Tablets every 6 hours Klarissa Cortes as needed nausea Oxycontin one by mouth Unknown 15mg Tab ER 12H every 12 hours Abuse-Det Incruse Ellipta inhale one puff Unknown 62.5mcg/Inh by mouth every Aerosol day Meloxicam 1 by mouth Unknown 15mg Tablets every day Escitalopram Oxalate 1 by mouth Unknown 20mg every day Tablets Aspirin Ec take 1 tab by Unknown 325mg Tablets DR mouth daily Dutasteride 1 cap by mouth Unknown 0.5mg Capsules daily Bethanechol Chloride 1 po qid prn Unknown 10mg Tablets Zofran take one Unknown 8mg Tablets capsule/tablet tid by mouth as needed for nausea Polyethylene Glycol 17 g 1 capful Unknown 3350( Miralax) in 8 oz glass 3350NF water daily Powder Ventolin HFA 2 puffs by Unknown 108(90Base) mouth four mcg/Act Aerosol times a day as needed Multivitamins 1 tablet po Unknown daily Albuterol Sulfate/ q 4-6 as needed Unknown Nebulizer Furosemide 1-2 tablet po Unknown 20mg Tablets as needed Advair Diskus 1 puff twice a 1units Unknown day 500-50mcg/Dose Aerosol Omeprazole 1 tablet po Unknown 20mg b.i.d History Medications Aspirin 1 by mouth every Brad Jacob, 08/14/2016 - 81mg Tablets day Klarissa, [facility] 01/10/2017 Xarelto 1 tab by mouth 30tabs Brad Jacob, 08/02/2016 - 20mg Tablets every day(On Hold) Klarissa, [facility] 01/10/2017 Compazine one tablet by mouth 20tabs Ronald Rashid 08/06/2014 - 5mg Tablets every tid as Klarissa Cortes 07/23/2016 needed nausea Oxycodone-Acetaminop take 1 tablet by Unknown - hen mouth every 6 hours 09/01/2018 10-325mg Tablets as needed for pain Oxycontin 4 times daily for Unknown - 15mg back pain 03/12/2018 Dicyclomine HCL 1 by mouth tid Unknown - 20mg 09/01/2018 Tablets Aspirin 1 by mouth every Unknown - 325mg Tablets day 08/13/2016 Oxyconashu 1 tablet by mouth Unknown - 60mg Tab ER every 8 hours 07/23/2016 12H Abuse-Det Oxycontin by mouth every 8 Unknown - 40mg Tab ER hours 07/23/2016 12H Abuse-Det Vitamin B-12 1 tablet po every Unknown - Natural day 07/23/2016 500mcg Tablets Vitamin D3 2 cap po daily Am Unknown - 2000Iu 07/23/2016 Duloxetine HCL 1 cap po daily Unknown - 30mg 09/01/[address] Bell Metoprolol Succinate 1/2 tablet po daily Unknown - ER 07/23/2016 100mg Tablets ER 24HR Oxycontin 1 tab by mouth 60tabs Juan Magana, - 15mg Tab ER b.id. Am/PM 01/12/2016 12H Abuse-Det Spiriva Handihaler 1 inhalation by 3mon Unknown - mouth every night 01/02/2016 18mcg Capsules Aggrenox 1 by mouth twice a 180caps Unknown - 25-200mg day 01/02/2016 Caps ER 12HR Cymbalta 1 POq day Unknown - 30mg 07/23/2016 Celebrex 1 tablet po daily Unknown - 200mg Am 01/02/2016 Metoprolol Tartrate 1 PO Q day Unknown - 08/07/2014 50mg Bupropion HCL SR 1 tab q day Unknown - 01/10/2017 150mg Oxycontin 2 tablet Am, 1 Juan Magana, - 80mg tablet lunch , 2 01/12/2016 tablets PM Medications Administered in Office Medication SIG Qnty Indications Ordering Provider Date Depmatthewrol 40MG Franck Burleson M.D. 03/13/2018 Injection Depomedrol 40MG Franck Burleson M.D. 03/13/2018 Injection Depomedrol 40MG Johnathan Richards PA-C 06/20/2017 Injection Depomedrol 40MG Johnathan Richards PA-C 06/20/2017 Injection Depomedrol 40MG Franck Burleson M.D. 01/11/2017 Injection Depomedrol 40MG Franck Burleson M.D. 01/11/2017 Injection Depomedrol 40MG Franck Burleson M.D. 10/09/2016 Injection Depomedrol 40MG Franck Burleson M.D. 10/09/2016 Injection Inj, Regadenoson, 0.1 MG Brad Jacob M.D., 08/14/2016 Injection CAROL FASJOVAN Aminophylline Brad Jacob M.D., 08/14/2016 Injection RACHEL MEDINA Technetium TC 99M Brad Jacob M.D., 08/14/2016 Tetrofosmin, Per Unit Dose Up CAROL FASNC To 40 Millicuries Injection Depomedrol 80MG Franck Burleson M.D. 09/07/2014 Injection Inj, Regadenoson, 0.1 MG Brad Jacob M.D., 08/17/2014 Injection FACCheryl, FASJOVAN Technetium TC 99M Brad Jacob M.D., 08/17/2014 Tetrofosmin, Per Unit Dose Up FACC, FASNC To 40 Millicuries Injection Technetium TC 99M [facility] Schedule 08/11/2014 Tetrofosmin, Per Unit Dose Up To 40 Millicuries Injection Depomedrol 80MG Franck Burleson M.D. 02/04/2014 Injection Depomedrol 80MG Yusuf Pressley M.D. 04/22/2013 Injection Depomedrol 80MG Yusuf Pressley M.D. 11/12/2012 Injection Depomedrol 80MG Franck Burleson M.D. 12/26/2010 Injection Vital Signs Date Vital Result Comment 09/02/2018 1:34pm Height 73 inches 6'1" Weight 270.00 lb Heart Rate 96 /min BP Systolic Sitting 110 mmHg Rue reg cuff BP Diastolic Sitting 60 mmHg Rue reg cuff BMI (Body Mass Index) 35.6 kg/m2 Ejection Fraction 45-50% 07/07/18 echo 03/13/2018 11:12am Height 73 inches 6'1" Weight [...] Facility Test Result H/L Range Note Surgical Pathology 12/25/2012 [facility] S RUN DATE: [address] <[place] [address] NOTE> [phone] Basic Metabolic 07/24/2011 [facility] Sodium 137 mmol/L 135- [address] [place] [address] [phone] Potassium 4.5 mmol/L 3.5-5.0 Chloride 102 mmol/L 101-111 Co2 (Carbon Dioxide) 31.0 mmol/L 22-32 Anion Gap 4.0 mmol/L 2-11 2 Glucose 76 mg/dL 70-100 BUN 10 mg/dL 6-24 Creatinine 0.7 mg/dL 0.50-1.40 One Over Creatinine 1.42 BUN/Creatinine Ratio 14.3 8-20 Calcium 8.2 mg/dL 8.1-9.9 eGFR Non- 111.8 > 60 eGFR 143.8 > 60 3 Lipid Profile 07/24/2011 [facility] Triglyceride 108 mg/dL 40 -200 (Trig/Chol/HDL) [address] [place] [address] [phone] Cholesterol 133 mg/dL Less Than 200 4 High Density Lipoprotein 25 mg/dL Low 40-60 5 Cholesterol/HDL Ratio 5.32 AVERAGE High 1-4.97 Low Density Lipoprotein 86 mg/dL Less Than 100 6 Drug Abuse 10 Serum 05/28/2011 [facility] Amphetamines Negative () [address] [place] [address] [phone] Barbiturates Negative () Benzodiazepines Negative () Cocaine And Metabolite Negative () Opiates Negative () Phencyclidine Negative () THC (Marijuana) Metabolite Negative () Methadone Negative () Methaqualone Negative () Propoxyphene Negative () Specimen Type Serum Plasma () 7 Creatinine 12/28/2010 [facility] Creatinine 0.9 mg/dL 0.50- 1.[address] [place] [address] [phone] One Over Creatinine 1.11 eGFR Non- 83.9 > 60 eGFR 107.9 > 60 8 Laboratory test finding 12/28/2010 [facility] BUN 23 mg/dL 6- [address] [place] [address] [phone] 1 RUN DATE: 12/26/12 [facility] LAB LIVE PAGE 1 RUN TIME: [address] [place] [address] Specimen Inquiry Name: FAMILIA SETHI Jonathan : [address]: Yusuf Pressley MD Acct: [id number] Unit: [id number] AGE: 72 Location: OR Re12/25/12 SEX: M Status: REG [facility] SPEC: [id number] DAI: 12/25/12- [facility] DR: Yusuf Pressley MD REQ: [id number] RECD: 12/25/12 STATUS: SOUT _ ORDERED: LEVEL III FINAL DIAGNOSIS Shoulder, left, shavings: Hyperplastic synovium with fibrosis and myxoid change, and fragments of fibrocartilage with myxoid degeneration. PRE-OPERATIVE DIAGNOSIS Left arm arthritis GROSS DESCRIPTION The specimen is received in formalin labeled Familia Sethi, Left Shoulder Shavings, and consists of a 3.0 x 2.5 x 1.5 cm. aggregate of yellow and white tissue fragments. Cotton Farmworker sections, one cassette. Signed (signature on file) Aaron Perez MD 1532 END OF REPORT * ML=Testing performed at Main Lab DEPARTMENT OF PATHOLOGY, [address] [place] [address] Aaron Perez M.D. Director [facility] Permit #[id number] 2 Anion gap measurement may be of limited value in the presence of any alkalosis, especially in a combined acid base disorder. . 3 Because ethnic data is not always readily [...] 15-29 5 Kidney failure <15 (or dialysis) 4 CHOLESTEROL INTERPRETATION: Desirable: Less than 200 MG/DL Borderline-High Risk: 200-239 MG/DL High-Risk: 240 MG/DL and over 5 HDL INTERPRETATION: Undesirable: High Risk: Less than 40 MG/DL Desirable: Low Risk: Greater than 60 MG/DL 6 LDL INTERPRETATION: Low Risk Optimal Level: LDL Less than 100 MG/DL Near or Above Optimal: LDL 100-129 MG/DL Borderline High Risk: LDL 130-159 MG/DL High Risk: LDL 160-189 MG/DL Very High Risk: LDL Greater than 189 MG/DL 7 This specimen was screened by Immunoassay. [...] 50 ng/mL 50 ng/mL Test Performed by: [facility] [email or web address]. [address] [place] [address] 8 Because ethnic data is not always [...] (or dialysis) Procedures Date Code Description Status 09/02/2018 09909 EKG Tracing & Interpretation Completed 07/07/2018 55557 ECHO Transthorasic Realtime 2D W Doppler & Color Flow Hosp Completed 07/06/2018 22870 EKG, Interpretation Only Completed 07/05/2018 84545 EKG, Interpretation Only Completed 05/25/2018 15920 EKG, Interpretation Only Completed 05/24/2018 89486 ECHO Transthorasic Realtime 2D W Doppler & Color Flow Hosp Completed 03/13/2018 14419 Inject/Drain Joint/Bursa Major W/O US Completed 01/12/2018 47934 EKG, Interpretation Only Completed 09/05/2017 65422 ECHO Transthorasic Realtime 2D W Doppler & Color Flow Hosp Completed 09/04/2017 16990 EEG Recording Awake & Drowsy Completed 09/03/2017 58754 EKG, Interpretation Only Completed 06/20/2017 69633 Inject/Drain Joint/Bursa Major W/O US Completed 01/11/2017 99475 Inject/Drain Joint/Bursa Major W/O US Completed 10/09/2016 39573 Inject/Drain Joint/Bursa Major W/O US Completed 09/01/2016 92799 Mobile Cardiovascular Telemetry Over 24 HR Up To 30 Days Completed 08/30/2016 82848 EKG Tracing & Interpretation Completed 08/19/2016 29537 EKG, Interpretation Only Completed 08/17/2016 62651 EKG, Interpretation Only Completed 08/16/2016 94536 EEG Recording Awake & Drowsy Completed 08/14/2016 32907 Stress Test Completed 08/14/2016 80611 Myocardial Perfusion Imaging Tomographic (Spect) Multiple Completed Studies 08/12/2016 69625 Mobile Cardiovascular Telemetry Over 24 HR Up To 30 Days Completed 08/07/2016 65156 ECHO Transthorasic Realtime 2D W Doppler & Color Flow Hosp Completed 08/02/2016 63459 Holter Monitor Review (24 hr)dr review & interp only Completed 08/01/2016 12638 ECG Monitor/Recording W/Visual Superimposition Scanning Completed 07/24/2016 11165 EKG Tracing & Interpretation Completed 09/07/2014 06987 Inject/Drain Joint/Bursa Major W/O US Completed 08/20/2014 92345 ECHO Transthoracic, Real-Time 2D With Doppler And Color Completed Flow 08/17/2014 62735 Holter Monitoring 24 HR New Completed 08/17/2014 74551 Stress Test Completed 08/17/2014 38932 Myocardial Perfusion Imaging Tomographic (Spect) Multiple Completed Studies 08/10/2014 39361 EKG Tracing & Interpretation Completed 02/04/2014 60973 Xray Knee 3 Views Completed 02/04/2014 42522 Xray Knee 3 Views Completed 02/04/2014 17873 Rad Exam; Hip Unilat Completed 02/04/2014 82059 Rad Exam; Pelvis Completed 02/04/2014 78960 Inject/Drain Joint/Bursa Major W/O US Completed 04/22/2013 38142 Inject/Drain Joint/Bursa Major W/O US Completed 12/25/2012 26504 Arthroscopy Shoulder Debridement Extensive Completed 12/25/2012 00802 Arthroscopy Shoulder Debridement Extensive Completed 11/12/2012 59416 Inject/Drain Joint/Bursa Major W/O US Completed 09/27/2012 53655 Rad Exam; Hip Unilat Completed 09/27/2012 49280 Rad Exam; Hip Unilat Completed 09/27/2012 68314 Rad Shoulder Comp, Min. 2 Views Completed 09/27/2012 69930 Rad Exam; Pelvis Completed 11/30/2011 37799 Rad Shoulder Comp, Min. 2 Views Completed 12/26/2010 59728 Rad Shoulder Comp, Min. 2 Views Completed 12/26/2010 68871 Rad Exam; Pelvis Completed 12/26/2010 46358 Inject/Drain Joint/Bursa Major W/O US Completed 01/17/2010 98301 Rad Exam; Pelvis Completed 01/17/2010 27717 Rad Exam; LS Spine Comp Completed 06/04/2003 05146 EKG, Interpretation Only Completed Encounters Type Date Location Provider Dx Diagnosis Office Visit 07/29/2018 [facility] Margot Brewerhn, J96.22 Acute and chronic 10:10a jocelyn Guzman M.D. respiratory Hospitalists failure with hypercapnia I50.23 Acute on chronic systolic (congestive) heart failure J96.11 Chronic respiratory failure with hypoxia R04.0 Epistaxis Office Visit 07/28/2018 10:09a [facility] Donna Han J96.22 Acute and chronic jocelyn Guzman MD respiratory Hospitalists failure with hypercapnia I50.9 Heart failure, unspecified R04.0 Epistaxis [facility] and 10:14a jocelyn Guzman M.D. chronic Hospitalists respiratory failure with hypercapnia N39.0 Urinary tract infection, site not specified I48.91 Unspecified atrial fibrillation Office Visit 07/09/2018 [facility] I48.91 Unspecified 10:14a jocelyn Guzman M.D. atrial Hospitalists fibrillation I50.9 Heart failure, unspecified I25.10 Athscl heart disease of [place] coronary artery w/o ang pctrs J44.9 Chronic obstructive pulmonary disease, unspecified [facility] failure, Assjocelyn vital M.D. unspecified Hospitalists I48.91 Unspecified atrial fibrillation J44.9 Chronic obstructive pulmonary disease, unspecified M54.2 Cervicalgia G89.29 Other chronic pain R29.6 Repeated falls Office Visit [facility]/07[facility]2018 [facility]9 Heart failure, Assocjocelyn M.D. unspecified Hospitalists I48.91 Unspecified atrial fibrillation J44.9 Chronic obstructive pulmonary disease, unspecified M54.2 Cervicalgia G89.29 Other chronic pain R29.6 Repeated falls Office Visit 07/06/2018 [facility] I50.9 Heart failure, Assoc,jocelyn Grove M.D. unspecified Hospitalists I48.91 Unspecified atrial fibrillation J44.9 Chronic obstructive pulmonary disease, unspecified M54.2 Cervicalgia R33.9 Retention of urine, unspecified R29.6 Repeated falls R74.8 Abnormal levels of other serum enzymes Office Visit 07/05/2018 10:11a [facility] Bibi J96.22 Acute and chronic Assoc,jocelyn Orozco DO respiratory Hospitalists failure with hypercapnia J96.11 Chronic respiratory failure with hypoxia N39.0 Urinary tract infection, site not specified R33.9 Retention of urine, unspecified R29.6 Repeated falls Office Visit 05/30/2018 [facility] R41.82 Altered mental 11:12a Assocjocelyn M.D. status, Hospitalists unspecified J44.0 Chronic obstructive pulmon disease w acute lower resp infct J09.x1 Influenza due to ident novel influenza A virus w pneumonia J44.1 Chronic obstructive pulmonary disease w (acute) exacerbation Office Visit 05/29/2018 [facility] R41.82 Altered mental 11:12a Assocjocelyn M.D. status, Hospitalists unspecified J44.0 Chronic obstructive pulmon disease w acute lower resp infct J09.x1 Influenza due to ident novel influenza A virus w pneumonia J44.1 Chronic obstructive pulmonary disease w (acute) exacerbation Office Visit 05/28/2018 [facility] Jose Alejandro Camp J96.21 Acute and chronic 11:11a Assoc,jocelyn Crystal MD respiratory Hospitalists failure with hypoxia J96.22 Acute and chronic respiratory failure with hypercapnia J44.0 Chronic obstructive pulmon disease w acute lower resp infct J09.x1 Influenza due to ident novel influenza A virus w pneumonia J44.1 Chronic obstructive pulmonary disease w (acute) exacerbation Office Visit 05/25/2018 11:11a [facility] Ari J96.21 Acute and chronic Assoc,GRACY Waite respiratory Hospitalists failure with hypoxia J96.22 Acute and chronic respiratory failure with hypercapnia J44.0 Chronic obstructive pulmon disease w acute lower resp infct J09.x1 Influenza due to ident novel influenza A virus w pneumonia J44.1 Chronic obstructive pulmonary disease w (acute) exacerbation Office Visit 05/24/2018 11:10a [facility] Ari J96.01 Acute respiratory Assoc,pc GRACY James failure with Hospitalists hypoxia J44.0 Chronic obstructive pulmon disease w acute lower resp infct J11.1 Flu due to unidentified influenza virus w oth resp manifest J44.1 Chronic obstructive pulmonary disease w (acute) exacerbation Office Visit 01/14/2018 10:39a [facility] J96.22 Acute and chronic Assoc,jocelyn Grove M.D. respiratory Hospitalists failure with hypercapnia E87.2 Acidosis E72.20 Disorder of urea cycle metabolism, unspecified G47.33 Obstructive sleep apnea (adult) (pediatric) Office Visit 01/13/2018 10:39a [facility] G47.33 Obstructive sleep Assoc,jocelyn Grove M.D. apnea (adult) Hospitalists (pediatric) E72.20 Disorder of urea cycle metabolism, unspecified Office Visit 01/12/2018 10:38a [facility] J96.22 Acute and chronic Assoc,jocelyn Grove M.D. respiratory Hospitalists failure with hypercapnia E87.2 Acidosis E72.20 Disorder of urea cycle metabolism, unspecified G47.33 Obstructive sleep apnea (adult) (pediatric) Office Visit 09/11/2017 9:48a [facility] Kacie J81.0 Acute pulmonary Assoc,jocelyn Roldan, edema Hospitalists BILLET EXAMINER D62 Acute posthemorrhagic anemia R42 Dizziness and giddiness S30.1xxA Contusion of abdominal wall, initial encounter Office Visit 09/10/2017 9:47a [facility] J81.0 Acute pulmonary Assoc,jocelyn Colby, BILLET EXAMINER edema Hospitalists D62 Acute posthemorrhagic anemia R42 Dizziness and giddiness S30.1xxA Contusion of abdominal wall, initial encounter Office Visit 09/09/2017 9:46a [facility] J81.0 Acute pulmonary Assoc,jocelyn Colby, BILLET EXAMINER edema Hospitalists R42 Dizziness and giddiness D62 Acute posthemorrhagic anemia S30.1xxA Contusion of abdominal wall, initial encounter Office Visit 09/08/2017 9:46a [facility] J81.0 Acute pulmonary Assoc,jocelyn Colby, BILLET EXAMINER edema Hospitalists R42 Dizziness and giddiness D62 Acute posthemorrhagic anemia S30.1xxA Contusion of abdominal wall, initial encounter Office Visit 09/07/2017 9:45a [facility] Kaylyn J81.0 Acute pulmonary Assoc,jocelyn Colby, BILLET EXAMINER edema Hospitalists R42 Dizziness and giddiness D62 Acute posthemorrhagic anemia Office Visit 09/06/2017 9:43a [facility] Kaylyn J81.0 Acute pulmonary Assoc,jocelyn Colby, BILLET EXAMINER edema Hospitalists D62 Acute posthemorrhagic anemia R42 Dizziness and giddiness R40.0 Somnolence Office Visit 09/05/2017 9:42a [facility] Kaylyn J81.0 Acute pulmonary Assoc,jocelyn Colby, BILLET EXAMINER edema Hospitalists R40.0 Somnolence R42 Dizziness and giddiness D62 Acute posthemorrhagic anemia Office Visit 09/04/2017 9:40a [facility] Adeline Chavez J81.0 Acute pulmonary Assoc,pc N.P. edema Hospitalists R40.0 Somnolence R42 Dizziness and giddiness S30.1xxA Contusion of abdominal wall, initial encounter Office Visit 09/03/2017 9:39a [facility] Adelinenabeel Chavez J81.0 Acute pulmonary Assoc,pc N.P. edema Hospitalists R40.0 Somnolence R42 Dizziness and giddiness S30.1xxA Contusion of abdominal wall, initial encounter Office Visit 09/02/2017 9:38a [facility] Ari J81.0 Acute pulmonary Assoc,GRACY Waite edema Hospitalists R40.0 Somnolence R42 Dizziness and giddiness S30.1xxA Contusion of abdominal wall, initial encounter Office Visit 09/01/2017 9:26a [facility] Ari R42 Dizziness and Assoc,GRACY Waite giddiness Hospitalists S30.1xxA Contusion of abdominal wall, initial encounter I95.9 Hypotension, unspecified W19.xxxA Unspecified fall, initial encounter Office Visit 08/31/2017 9:21a [facility] Areli R42 Dizziness and Assoc,jocelyn Macias NP giddiness Hospitalists S30.1xxA Contusion of abdominal wall, initial encounter I95.9 Hypotension, unspecified W19.xxxA Unspecified fall, initial encounter Office Visit 01/11/2017 Orthopedic Franck Burleson, M19.012 Primary 10:30a Services Of M.D. osteoarthritis, left C.M.A. shoulder M19.011 Primary osteoarthritis, right shoulder M51.86 Other intervertebral disc disorders, lumbar region Office Visit 10/09/2016 Orthopedic Franck Burleson, M17.12 Unilateral primary 2:15p Services Of M.D. osteoarthritis, left C.M.A. knee M17.11 Unilateral primary osteoarthritis, right knee M17.0 Bilateral primary osteoarthritis of knee Office Visit 08/30/2016 11:00a [facility] Brad Jacobsen I48.0 Paroxysmal atrial Of Fritz Jacob M.D., fibrillation FAC, [facility] Office Visit 08/21/2016 11:25a [facility] Feroz R56.9 Unspecified Assocjocelyn convulsions Hospitalists M.D. R50.9 Fever, unspecified R40.0 Somnolence G89.29 Other chronic pain Office Visit 08/20/2016 [facility] Feroz R56.9 Unspecified 11:25a Assocjocelyn M.D. convulsions Hospitalists R50.9 Fever, unspecified R40.0 Somnolence G89.29 Other chronic pain Office Visit 08/19/2016 [facility] Feroz R50.9 Fever, 11:25a Assjocelyn vital M.D. unspecified Hospitalists R56.9 Unspecified convulsions R40.0 Somnolence G89.29 Other chronic pain Office Visit 08/18/2016 [facility] Feroz R50.9 Fever, 11:24a Assocjocelyn M.D. unspecified Hospitalists R56.9 Unspecified convulsions R40.0 Somnolence G89.29 Other chronic pain Office Visit 08/16/2016 11:23a [facility] Ashok R50.9 Fever, Assoc,jocelyn Grove M.D. unspecified Hospitalists R40.0 Somnolence R56.9 Unspecified convulsions G89.29 Other chronic pain Office Visit 08/16/2016 [facility] [place] Wall R56.9 Unspecified 1:30p Clinic Klarissa Fleming convulsions I67.9 Cerebrovascular disease, unspecified Office Visit 08/15/2016 11:22a [facility] Valente R50.9 Fever, Assoc,jocelyn Gibson MD unspecified Hospitalists R40.0 Somnolence R56.9 Unspecified convulsions G89.29 Other chronic pain Office Visit 08/15/2016 [facility] [place] R41.82 Altered mental 1:30p Clinic MD Lindsay status, unspecified R50.9 Fever, unspecified R56.9 Unspecified convulsions Office Visit 07/24/2016 1:15p [facility] Brad Jacobsen R00.2 Palpitations Fritz Jacob M.D., [facility] R06.00 Dyspnea, unspecified I25.10 Athscl heart disease of [place] coronary artery w/o ang pctrs Office Visit 01/12/2016 Orthopedic Franck Burleson, M19.011 Primary 8:45a Services Of Klarissa osteoarthritis, right C.M.A. shoulder Z96.641 Presence of right artificial hip joint M25.551 Pain in right hip Office Visit 04/24/2015 [facility] Martin Ewing R07.9 Chest pain, 12:39p Assoc,jocelyn Morton M.D.,FACP unspecified Hospitalists T40.601A Poisoning by unsp narcotics, accidental, init Office Visit 09/07/2014 9:30a Orthopedic Franck Burleson, 715.96 Osteoarthrosis Services Of [place] Unspec Genlzd Or C.M.A. Localized Lower Leg 715.36 Osteoarthrosis Localzd Not Spec Prime Or 2Ndy Lower Leg Office Visit 08/26/2014 [place] Brad Jacobsen 414.01 Coronary 10:30a Cardiology Of [place] Jacob, Atherosclerosis [facility], FAS[facility] [place] Office Visit 08/10/2014 [place] Brad Jacobsen 414.01 Coronary 12:15p Cardiology Of [place] Jacob, Atherosclerosis [facility], [facility] [place] 785.1 Palpitations Office Visit 05/18/2014 2:07p [facility] [place] 784.0 Headache [place] Fleming 780.79 Malaise And Fatigue Other 787.02 Nausea Alone Office Visit 02/04/2014 8:15a Orthopedic Franck Burleson, 716.96 Arthropathy Unspec Services Of [place] Lower Leg C.MDiana 719.45 Pain Joint Pelvic Region & Thigh 338.29 Other Chronic Pain Office Visit 04/22/2013 10:15a Margarita Pressley 715.11 Osteoarthrosis Services Of M.D. Localized Prim C.M.A. Shoulder Region Office Visit 12/05/2012 11:45a Margarita Pressley 726.10 Bursae & Tendon Services Of M.D. Disorders Shoulder C.M.A. Region Unspec Office Visit 11/12/2012 11:45a Margarita Pressley 715.11 Osteoarthrosis Services Of M.D. Localized Prim C.M.A. Shoulder Region 718.81 Derangement Joint Other Not Elsewhere Class Shoulder 726.19 Shoulder Disorders Other Spec Office Visit 09/27/2012 10:15a Margarita Burleson 715.11 Osteoarthrosis Services Of M.DOneil Localized Prim C.M.AOneil Shoulder Region V43.64 Hip Replacement By Other Means Office Visit 11/30/2011 Sarina Brooke.11 Osteoarthrosis 11:00a Services Of [place]on Cyr Localized Prim Shoulder Region Office Visit 02/06/2011 Margarita Burleson 716.91 Arthropathy Unspec 8:30a Services Of [place] C[place] Shoulder Region Office Visit 01/13/2011 Neurosurgery Sheldon Romero 431 Hemorrhage 10:15a Services Of Fritz Funes M.D. Intracerebral Office Visit 12/28/2010 Neurosurgery Sheldon Romero 436 Cerebrovascular 2:15p Services Of Fritz Funes M.D. 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 Please continue your oxygen supplementation.Follow up:OV after TOE in 6 months
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
[2018-09-13 19:27] LABS: ABS Eosinophils 0.4 10^3/ul (0-0.6); ABS Lymphocytes 1.7 10^3/ul (1.0-4.8); ABS Neutrophils 8.3 10^3/ul (1.5-7.7); Eosinophil % 3.6 %; Hematocrit 36 % (42-52); Hemoglobin 11.6 g/dL (14.0-18.0); Lymphocyte % 14.6 %; Mean Corpuscular HGB Conc 32 g/dL (31-36); Mean Corpuscular Hemoglobin 30 pg (27-31); Mean Corpuscular Volume 94 fL (80-94); Mean Platelet Volume 7.9 fL (7.4-10.4); Platelet Count 194 10^3/uL (150-450); Red Blood Count 3.81 10^6 /uL (4.18-5.48); Red Cell Distribution Width 14 % (10-15); White Blood Count 11.4 10^3/uL (3.5-10.8)
[2018-09-13] MEDS ORDERED: Albuterol/Ipratropium NEB.SOL* Albuterol 2.5 MG/Ipratropium 0.5 MG 3 ML INH ONE (19:35)
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
[2018-09-13 19:46] LABS: ALT 8 U/L (7-52); AST 13 U/L (13-39); Albumin 3.5 g/dL (3.2-5.2); Albumin/Globulin Ratio 1.3 (1-3); Alkaline Phosphatase 64 U/L (34-104); Anion Gap 5 mmol/L (2-11); Blood Urea Nitrogen 18 mg/dL (6-24); CO2 Carbon Dioxide 36 mmol/L (22-32); Calcium 8.9 mg/dL (8.6-10.3); Chloride 101 mmol/L (101-111); EGFR African American 158.5 (>60); Globulin 2.7 g/dL (2-4); Glucose 107 mg/dL (70-100); Potassium 3.9 mmol/L (3.5-5.0); Sodium 142 mmol/L (135-145); Total Protein 6.2 g/dL (6.4-8.9); Troponin I 0.01 ng/mL (<0.04)
[2018-09-13 19:58] LABS: Alcohol < 10 mg/dL (<10)
[2018-09-13 20:12] LABS: Urine Appearance Cloudy; Urine Bacteria Absent (Absent); Urine Bilirubin Negative (Negative); Urine Blood 1+ (Negative); Urine Color Yellow; Urine Glucose Negative (Negative); Urine Ketones Negative (Negative); Urine Nitrite Negative (Negative); Urine Protein Negative (Negative); Urine Red Blood Cell 2+(6-10/hpf) (Absent); Urine Urobilinogen Negative (Negative); Urine White Blood Cell 3+(>20/hpf) (Absent)
[2018-09-13 20:13] LABS: TSH (Thyroid Stimulating Horm) 1.84 mcIU/mL (0.34-5.60)
[2018-09-13] MEDS ORDERED: Amoxicillin/Clavulanate TAB* 875 MG PO ONE (21:11)
[2018-09-13] MEDS ORDERED: oxyCODONE SR TAB(*) 15 MG TAB.SR PO ONE (21:11)
[2018-09-13 22:20] VITALS: BP 140/81
--- NOTE | 2018-09-16 05:29 | PN ---
Progress Note - Progress Note Date of Service: 09/13/18 Note: Culture grew Enterococcus faecalis Patient was placed on augmentin prior to discharge Sensitive organism Nothing further this time
== END 2018-09-13 22:18 | disposition home or self-care (01) ==
LOC: ED 17:38
DX: N39.0 Urinary tract infection, site not specified (principal); R41.0 Disorientation, unspecified; I48.91 Unspecified atrial fibrillation; I25.10 Atherosclerotic heart disease of native coronary artery without angina pectoris; I10 Essential (primary) hypertension; J44.9 Chronic obstructive pulmonary disease, unspecified; Z79.01 Long term (current) use of anticoagulants; Z91.041 Radiographic dye allergy status
CPT/HCPCS: 36415; 70450; 72125; 80053; 80320; 81003; 81015; 83605; 84443; 84484; 85025; 87077; 87086; 87186; 93005; 99283; A9270-GY; G0480

== ENCOUNTER 2018-09-23 20:00 | Observation (INO) | payer MEDICARE ==
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
[2018-09-23] MEDS ORDERED: fentaNYL* 50 MCG/ML 2 ML VIAL (100 MCG VIAL) IV SLOW PU ONE ×2 (20:56→22:11)
[2018-09-23] MEDS ORDERED: NS 0.9% 1000 ML** 400 ML IV SCH (21:00)
[2018-09-23 21:24] LABS: ABS Eosinophils 0.4 10^3/ul (0-0.6); ABS Lymphocytes 1.5 10^3/ul (1.0-4.8); ABS Monocytes 1.1 10^3/ul (0-0.8); ABS Neutrophils 6.3 10^3/ul (1.5-7.7); Eosinophil % 4.7 %; Hematocrit 37 % (42-52); Hemoglobin 11.8 g/dL (14.0-18.0); Lymphocyte % 15.5 %; Mean Corpuscular HGB Conc 32 g/dL (31-36); Mean Corpuscular Hemoglobin 30 pg (27-31); Mean Corpuscular Volume 93 fL (80-94); Mean Platelet Volume 7.6 fL (7.4-10.4); Platelet Count 179 10^3/uL (150-450); Red Blood Count 3.99 10^6 /uL (4.18-5.48); Red Cell Distribution Width 14 % (10-15); White Blood Count 9.4 10^3/uL (3.5-10.8)
[2018-09-23 21:44] LABS: Albumin 3.4 g/dL (3.2-5.2); Albumin/Globulin Ratio 1.3 (1-3); BUN/Creatinine Ratio 21.2 (8-20); Calcium 9.2 mg/dL (8.6-10.3); EGFR Non-African American 154.5 (>60); Globulin 2.6 g/dL (2-4); Magnesium 1.8 mg/dL (1.9-2.7); Potassium 3.9 mmol/L (3.5-5.0); Total Bilirubin 0.4 mg/dL (0.2-1.0)
[2018-09-23] MEDS ORDERED: Morphine INJ* 2 MG/ML 1 ML SYRINGE (TWO MG - NEW SYRINGE VERSION) IV PRN (22:52)
[2018-09-23] MEDS ORDERED: Al Hydrox/Mg Hydrox/Simet LIQ* 30 ML UDC PO PRN (22:52)
[2018-09-23] MEDS ORDERED: Albuterol HFA INHALER* 8 gm MDI INH PRN (22:54)
[2018-09-23] MEDS ORDERED: Albuterol 2.5 MG/3 ML NEB.SOL* (0.083%) INH PRN (22:54)
[2018-09-23] MEDS ORDERED: oxyCODONE TAB* 5 MG TAB PO PRN (22:56)
[2018-09-24 01:13] LABS: Urine Appearance Clear; Urine Bilirubin Negative (Negative); Urine Blood Negative (Negative); Urine Color Yellow; Urine Glucose Negative (Negative); Urine Ketones Negative (Negative); Urine Nitrite Negative (Negative); Urine Protein Negative (Negative); Urine Urobilinogen Negative (Negative)
--- NOTE | 2018-09-24 02:14 | HP ---
CC: Dr. Melchor; Dr. Paz * HISTORY AND PHYSICAL: DATE OF ADMISSION: 09/23/18 PRIMARY CARE PROVIDER: Dr. Paz. CHIEF COMPLAINT: Status post fall a week and a half ago and left hip pain. HISTORY OF PRESENT ILLNESS: Familia Sethi is a 78-year-old male with a history of chronic bilateral leg edema; chronic hypoxemic respiratory failure, on oxygen at 2 to 4 L; chronic systolic CHF with EF of 45%, who presented to the hospital complaining of intractable left hip pain after a fall a week before. Workup in the ED with x-rays failed to demonstrate any hip fracture. The patient has a history of bilateral hip replacements in the past. He is going to be placed on overnight observation with a diagnosis of intractable left hip pain. PAST MEDICAL HISTORY: 1. COPD and chronic hypercapnic respiratory failure, on 4 L of oxygen via nasal cannula and baseline. 2. History of chronic systolic CHF with EF of 45% in July of 2018. 3. Obstructive sleep apnea, intermittent, on BiPAP. 4. History of chronic pain and long-term opioid use. 5. History of neurogenic bladder. The patient self catheterizes several times a day. 6. History of coronary artery disease. 7. History of CVA without deficit. 8. History of paroxysmal atrial fibrillation, anticoagulation with Eliquis. 9. History of left arm AV malformation with repair. 10. History of bilateral hip replacement. 11. Cholecystectomy. 12. . 13. History of AVM repair in left arm. MEDICATIONS AT HOME: Include: 1. Eliquis 5 mg b.i.d. The patient stated that he stopped his aspirin while he was placed on Eliquis within the past month by his primary care provider for his atrial fibrillation. 2. Crestor 5 mg daily. 3. Incruse Ellipta 1 inhalation daily. 4. Furosemide 40 mg daily. 5. Albuterol inhaler on a p.r.n. basis. 6. Nebulizers with albuterol on a p.r.n. basis. 7. Ferrous sulfate 350 mg daily. 8. Meloxicam 15 mg daily. 9. Lidoderm patch 5% one patch transdermal daily to the affected area. 10. Lexapro 20 mg daily. 11. Avodart 0.5 mg daily. 12. OxyContin 15 mg daily. 13. Omeprazole 20 mg b.i.d. 14. Toprol XL 25 mg daily. 15. Aspirin 325 mg 1 tablet daily. ALLERGIES: Include oral and IV dye. FAMILY HISTORY: Father secondary to heart disease. Mother with a history of breast cancer and diabetes. SOCIAL HISTORY: The patient is retired, lives with his . He rarely uses alcohol. Denies any tobacco or drug use. 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 REVIEW OF SYSTEMS: Please see history of present illness. In addition to the above mentioned, the patient stated that he has bilateral leg edema which is chronic, right leg is usually worse more than the left. He has chronic hypoxemic respiratory failure and his oxygen needs and dyspnea on exertion are at baseline. He denies any chest pain. His appetite has been rather poor recently due to pain and left hip spasms when he tries to walk. At baseline, he ambulates with a roller walker, but it had been very limited in the past week. Other remaining 12 systems were reviewed with the patient and were otherwise negative. PHYSICAL EXAMINATION GENERAL: The patient is a pleasant 78-year-old male who is in no acute distress , alert, awake, and oriented x3. VITAL SIGNS: Blood pressure 130/79, heart rate of 90 and irregularly irregular , respiratory rate 18, oxygen saturation 98% on 2 L of oxygen via nasal cannula , temperature 98.2. HEENT: Head atraumatic, normocephalic. Eyes: Pupils are equal and reactive to light and accommodation. Oropharynx clear. Mucosa moist. NECK: Supple. No JVD. No bruits bilaterally. RESPIRATORY: Clear to auscultation bilaterally. CARDIOVASCULAR: Irregularly irregular rhythm. No murmur. ABDOMEN: Soft, nontender. Bowel sounds present in all 4 quadrants. EXTREMITIES: +2 pitting edema, right more than left. There is no clubbing, no cyanosis. Pulses are poorly palpable due to edema, but present bilaterally. NEUROLOGIC: Speech clear. Cranial nerves II through XII grossly intact. Motor strength 5/5 bilaterally with limitation of the left leg raise due to pain elicited when tying to do so. There is no tenderness of the left hip area or left thigh area. SKIN: On evaluation of the skin, no ecchymotic areas or rashes noted. LABORATORY DATA: White cell count of 9.4, hemoglobin of 11.8, hematocrit of 37 , and platelets of 179. Sodium is 142, potassium 2.9, chloride 103, carbon dioxide 34, BUN 11, and creatinine 0.52. Liver functions are unremarkable. Magnesium of 1.8. ASSESSMENT: 1. Left hip pain. At this point, the patient is status post bilateral hip replacements. His x-ray initially did not show any evidence of a fracture. I will obtain CT to evaluate it further and ask Dr. Melchor from Orthopedic Surgery to see the patient in the morning. I will also ask Physical Therapy and Occupational Therapy to see the patient in evaluation. The patient is going to be placed on OxyContin as well as Soma on as needed basis. 2. For his obstructive sleep apnea, the patient is going to be continued on BiPAP at home at night. 3. For his chronic obstructive pulmonary disease, does not appear to be in exacerbation. His inhalers are going to be continued and chronic oxygen as previously used. 4. For gastroesophageal reflux disease, the patient is going to be continued on PPI. 5. For DVT prophylaxis, the patient is going to be continued on his Eliquis. 6. The patient's code status is full and his surrogate is his . TIME SPENT: Approximately 65 minutes were spent in evaluation of this patient, more than half the time was spent [id number] with the patient during the interview and physical exam. [id number]/[facility] #: [id number] DARREN
[2018-09-24] MEDS: Carisoprodol TAB* 350 MG PO PRN (08:01)
[2018-09-24] MEDS: Multivitamins/Minerals TAB PO SCH (08:02)
[2018-09-24] MEDS: Furosemide TAB* 40 MG PO SCH (08:02)
[2018-09-24] MEDS: Pantoprazole TAB * 40 MG TAB PO SCH (08:02)
[2018-09-24] MEDS: Apixaban* 5 MG TAB PO SCH ×2 (08:02→23:11)
[2018-09-24] MEDS: Ferrous Sulfate TAB* 325 MG PO SCH (08:02)
[2018-09-24] MEDS: Metoprolol Succinate XL TAB* 25 MG PO SCH (08:02)
[2018-09-24] MEDS: Docusate CAP* 100 MG PO SCH ×2 (08:02→23:12)
[2018-09-24] MEDS: Lidocaine PATCH 5%* 1 PATCH TRANSDERM SCH (08:03)
[2018-09-24] MEDS: Escitalopram * 20 MG TABLET PO SCH (08:27)
[2018-09-24 08:37] LABS: White Blood Count 9.2 10^3/uL (3.5-10.8)
[2018-09-24] MEDS ORDERED: Spiriva Inhaler DEVICE* 1 EACH DEVICE INH ONE (09:00)
[2018-09-24] MEDS ORDERED: oxyCODONE SR TAB(*) 15 MG TAB.SR PO SCH (09:00)
[2018-09-24] MEDS ORDERED: Umeclidinium 62.5 MDI(NF) MDI INH SCH (09:00)
--- NOTE | 2018-09-24 09:31 | PN ---
Subjective Date of Service: 09/24/18 Interval History: Sedated, received oxycodone 15mg this AM after repeated reporting pain to RN afterwhich much more sedated, less interactive but awake and in respiratory distress. Also received fentanyl in the ED and IV morphine overnight Objective Active Medications: Acetaminophen (Tylenol Tab*) 650 mg PO Q4H PRN PRN Reason: FEVER/PAIN Al Hydrox/Mg Hydrox/Simethicone (Maalox Plus*) 30 ml PO Q6H PRN PRN Reason: INDIGESTION Albuterol (Ventolin 2.5 Mg/3 Ml Neb.Damaris*) 2.5 mg INH Q4H PRN PRN Reason: SHORTNESS OF BREATH Albuterol (Ventolin Hfa Inhaler*) 2 puff INH Q4H PRN PRN Reason: SHORTNESS OF BREATH Apixaban (Eliquis*) 5 mg PO BID [facility] Last Admin: 09/24/18 08:02 Dose: 5 mg Carisoprodol (Soma Tab*) 350 mg PO TID PRN PRN Reason: SPASMS Last Admin: 09/24/18 08:01 Dose: 350 mg Docusate Sodium (Colace Cap*) 100 mg PO BID [facility] Last Admin: 09/24/18 08:02 Dose: 100 mg Escitalopram Oxalate (Lexapro *) 20 mg PO DAILY [facility] Last Admin: 09/24/18 08:27 Dose: 20 mg Ferrous Sulfate (Ferrous Sulfate Tab*) 325 mg PO DAILY [facility] Last Admin: 09/24/18 08:02 Dose: 325 mg Furosemide (Lasix Tab*) 40 mg PO DAILY [facility] Last Admin: 09/24/18 08:02 Dose: 40 mg Lidocaine (Lidoderm 5% Patch*) 1 patch TRANSDERM DAILY [facility] Last Admin: 09/24/18 08:03 Dose: 1 patch Metoprolol Succinate (Toprol Xl Tab*) 25 mg PO DAILY [facility] Last Admin: 09/24/18 08:02 Dose: 25 mg Multivitamins/Minerals (Theragran/Minerals Tab*) 1 tab PO DAILY [facility] Last Admin: 09/24/18 08:02 Dose: 1 tab Pantoprazole Sodium (Protonix Tab*) 40 mg PO DAILY [facility] Last Admin: 09/24/18 08:02 Dose: 40 mg Pharmacy Profile Note (Lidocaine Patch Remove*) 1 note PATCH OFF BEDTIME [facility] Tiotropium Force (Spiriva Cap.Inh*) 1 cap INH DAILY [facility] Vital Signs - 8 hr 09/24/18 09/24/18 09/24/18 03:15 07:00 08:01 Temperature 97.1 F 98.1 F Pulse Rate 84 89 Respiratory 20 28 18 Rate Blood Pressure 122/74 139/68 (mmHg) O2 Sat by Pulse 100 100 Oximetry 09/24/18 08:02 Temperature Pulse Rate Respiratory 18 Rate Blood Pressure (mmHg) O2 Sat by Pulse Oximetry Oxygen Devices in Use Now: Nasal Cannula Appearance: sleepy, easy to wake, falls asleep while talking Eyes: No Scleral Icterus, PERRLA Ears/Nose/Mouth/Throat: NL Teeth, Lips, Gums, Clear Oropharnyx Neck: NL Appearance and Movements; NL JVP, Trachea Midline Respiratory: Symmetrical Chest Expansion and Respiratory Effort, Clear to Auscultation Cardiovascular: RRR Abdominal: NL Sounds; No Tenderness; No Distention, No Hepatosplenomegaly Lymphatic: No Cervical Adenopathy Extremities: - - 2+ LE edema Neurological: - - AOx2 to self and location but says "trump" for the year repeatedly when asked Result Diagrams: 09/24/18 08:10 09/23/18 21:18 Assess/Plan/Problems-Billing Assessment: 78 yo M h/o chronic pain on narcotics, NIDIGO, b/l THR pw falls and left hip pain w /out evidence of underlying fracture/dislocation - Patient Problems (1) Pain Comment: discontinung pain medications except soma Will add back home oxycodone when more awake refrain from additional narcatic increases given obvious sedation PT ordered (2) INDIGO (obstructive sleep apnea) Comment: machine in room (3) Fall Comment: suspect narcotics for chronic pain are contributing (4) Afib Comment: екатерина metoprolol (5) Systolic heart failure Comment: chronic c/w lasix stop normal saline (6) DVT prophylaxis Comment: екатерина
[2018-09-24] MEDS: Tiotropium CAP.INH* CAP.INH/18 MCG (USE ORDER SET !) INH SCH (10:30)
--- NOTE | 2018-09-24 12:49 | CONS ---
CONSULTATION REPORT: DATE OF CONSULT: 09/24/18 PRIMARY CARE PROVIDER: Dr. Paz. ORTHOPEDIC ATTENDING: Dr. Silverio Melchor. CHIEF COMPLAINT: Status post fall a week ago with left hip pain. HISTORY OF PRESENT ILLNESS: The patient is a 78-year-old male with history of bilateral total hip arthroplasty, who presented to the hospital after intractable hip pain after a fall 1 week ago as well as a fall yesterday, which occurred when missing the shower chair and fell onto the floor. Today, the patient is very sedated, but he is able to report to me the pain is localized to the hip, onset 1 week ago immediately after the fall with inability to bear weight since. He reports no pain of other extremities and no pain in left leg aside from at the side of the hip. He does have left total hip replacement done in the year [address] Burleson. He denies any numbness or weakness in the leg. He denies any feeling of fever or chills. 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 PAST SURGICAL HISTORY: Bilateral hip replacements in 1999 and 2000, cholecystectomy, AVM repair left arm. HOME MEDICATIONS: As in med rec. ALLERGIES: ORAL and IV CONTRAST DYE. FAMILY HISTORY: Father secondary to heart disease. SOCIAL HISTORY: The patient is retired. He lives at home with his . 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 REVIEW OF SYSTEMS: The patient is currently very sedated, unable to offer a good history, though reports he has left hip pain. PHYSICAL EXAM: Vital Signs: Temperature 98.1, pulse rate 89, respiratory rate 28, oxygen saturation 100% on 3 L of oxygen, and blood pressure 139/68. General : The patient is pleasant, he is in no acute distress. He is sedated. He is falling asleep during my exam, though does answer some of my questions, though mostly I could get no response from him. HEENT: Head is normocephalic, atraumatic. Respiratory: Normal rate and effort of breathing. Abdomen: Nondistended. Extremities: Bilateral upper extremities; skin envelope intact, nontender to palpation. No obvious bony deformity. Able to flex and extend digits, wrists, elbows and shoulders without pain. Lower extremities; right skin envelope intact. No obvious bony deformity. Nontender to palpation. Able to flex and extend digits, ankle, knee and hip without pain. Negative log roll. Left lower extremity skin envelope intact. No obvious bony deformity. No rotation of the limb. Able to flex the hip 0 to 90 degrees without pain. Also able to internally and externally rotate without pain. He is tender to palpation mildly over the hip, there is no ecchymosis or erythema. He is not otherwise tender to palpation. Able to flex and extend the knee 0 to 90 as well without pain, and no pain with flexion and extension of the digits or the ankle. Negative log roll and negative heel strike. No midline tenderness of the lumbar spine. Neuro: Sensation intact to light touch bilateral lower extremities. DP palpable bilateral lower extremities. DIAGNOSTIC STUDIES/LAB DATA: White blood cell count 9.2. CRP 6.6. Pelvis CT, no acute fracture. Positive for 2.1 x 5.3 cm soft tissue hematoma in the right lateral buttock. ASSESSMENT: Left hip pain, osteoarthritis and contusion. No acute fracture on CT or Xray. No sign of infection. Exam is limited due to sedation, would recommend repeat lower extremity exam when he is less sedated. PLAN: I reviewed this case with Dr. Melchor, who agrees with assessment and plan. The patient can be weightbearing as tolerated with assistance. He should get up with physical therapy and attempt to ambulate. If there are any further questions concern, please feel free to reach out to Orthopedics for any further issues. Plan to reexamine patient to ensure no new complaints/ changes in exam with decreased sedation. GRACY JACKMAN [id number]/[facility] #: [id number] DARREN
[2018-09-24] MEDS: Acetaminophen TAB* 325 MG PO PRN (14:29)
[2018-09-24] MEDS ORDERED: Lidocaine Patch REMOVE* 1 NOTE MISC PATCH OFF SCH (21:00)
[2018-09-25] MEDS: Acetaminophen TAB* 325 MG PO PRN ×3 (00:42→16:28)
[2018-09-25] MEDS: Tiotropium CAP.INH* CAP.INH/18 MCG (USE ORDER SET !) INH SCH (07:34)
--- NOTE | 2018-09-25 08:51 | PN ---
Progress Note - Progress Note Date of Service: 09/25/18 Note: I saw Familia this morning. He was sedated and minimally arousable. Unable to answer questions and participate in exam. No obvious discomfort with L hip PROM. He did react with palpation of lateral L hip. WBC and CRP WNL No fx seen on xray or CT A: Left hip contusion P: PT, mobilization Will need more thorough exam once less sedated and able to participate DVT prophylaxis
[2018-09-25] MEDS: Lidocaine PATCH 5%* 1 PATCH TRANSDERM SCH (09:09)
[2018-09-25] MEDS: Multivitamins/Minerals TAB PO SCH (09:11)
[2018-09-25] MEDS: Ferrous Sulfate TAB* 325 MG PO SCH (09:11)
[2018-09-25] MEDS: Escitalopram * 20 MG TABLET PO SCH (09:11)
[2018-09-25] MEDS: Metoprolol Succinate XL TAB* 25 MG PO SCH (09:12)
[2018-09-25] MEDS: Pantoprazole TAB * 40 MG TAB PO SCH (09:12)
[2018-09-25] MEDS: Docusate CAP* 100 MG PO SCH (09:12)
[2018-09-25] MEDS: Apixaban* 5 MG TAB PO SCH (09:12)
[2018-09-25] MEDS: Furosemide TAB* 40 MG PO SCH (09:12)
[2018-09-25] MEDS: Carisoprodol TAB* 350 MG PO PRN (13:07)
[2018-09-25 13:34] VITALS: BP 109/65
--- NOTE | 2018-09-25 17:41 | PN ---
Progress Note - Progress Note Date of Service: 09/25/18 Note: Again examined patient oob in chair this afternoon, he remained sedated but less so than previous exams. His was at bedside. He was mildly tender to palpation over the left hip, no point tenderness throughout the rest of the LLE. Able to passively range the left ankle, knee 0-90 flexion and hip 0-90 flexion without pain. No pain with log roll of the left hip. His reports he was able to ambulate after both falls. Suspect left hip contusion. Once patient is again less sedated if he reports a change in pain or exam please follow up with orthopedics for further evaluation.
--- NOTE | 2018-09-25 17:46 | DS ---
CC: Dr. Paz; Dr. Silverio Melchor from Orthopedic Surgery * DISCHARGE SUMMARY: DATE OF ADMISSION: 09/23/18 DATE OF DISCHARGE: 09/25/18 PRIMARY CARE PROVIDER: Dr. Paz. DISPOSITION: Home. CONDITION ON DISCHARGE: Improved. MEDICATIONS ON DISCHARGE: 1. Crestor 5 mg daily. 2. Incruse Ellipta 1 puff inhaled daily. 3. Lasix 40 mg daily as needed. 4. Albuterol 2 puffs every 4 hours as needed. 5. Albuterol/Ventolin nebulizer every 4 to 6 hours as needed. 6. Ferrous sulfate 325 mg daily. 7. Eliquis 5 mg twice daily. 8. Mobic 15 mg daily. 9. Lidocaine patch, 1 patch daily transdermally. 10. Lexapro 20 mg daily. 11. Avodart 0.5 mg daily. 12. Oxycodone sustained release 15 mg daily. 13. Omeprazole 20 mg twice daily. 14. Metoprolol succinate 25 mg daily. 15. Aspirin 325 mg daily. 16. Multivitamin 1 tab daily. PRIMARY DIAGNOSIS: Fall with pain. SECONDARY DIAGNOSES: Include: 1. Acute confusional state while hospitalized. 2. Chronic obstructive pulmonary disease with chronic hypercapnic respiratory failure and hypoxic respiratory failure, on home oxygen. 3. Systolic heart failure, chronic. 4. Obstructive sleep apnea. 5. Chronic pain. 6. Neurogenic bladder with self-catheterization at home. 7. Coronary artery disease. 8. Cerebrovascular accident. 9. Paroxysmal atrial fibrillation. 10. Bilateral hip replacements. PERTINENT LABORATORY DATA: Includes benign urine. PERTINENT IMAGING: CT of the pelvis, impression: No acute fracture. There is a 2.1 x 5.3 cm soft tissue hematoma in the right lateral buttock. HISTORY OF PRESENT ILLNESS AND HOSPITAL COURSE: This is a 78-year-old man, past medical history as outlined in the history of present illness on the day of admission with chronic pain, on home narcotics, presented to the hospital after a fall with intractable left hip pain. He was evaluated in the emergency room and was found without any hip fracture and/or dislocation; however, his pain was intractable, was unable to ambulate. He was admitted to the hospital for further management. He then received significant amount of narcotics in the emergency room and overnight on the first day of admission including fentanyl and IV morphine. In the following day or the day prior to discharge on 09/24/18, he was significantly lethargic or increasingly lethargic and somnolent, which improved with withholding all narcotics until the day of discharge on 09/25/18. On the day of 09/25/18, his pain was improved and his mental status was back at baseline when seen with his at bedside. He worked with physical therapy and had significant needs including 2-person assist for standing and transferring. It is my recommendation to patient and his on multiple conversations that he move from this institution to a subacute rehab for further physical therapy and assistance before moving home. The patient and his healthcare proxy/his did not agree with this plan of action and much preferred to return home. I discussed the risks of returning home including recurrent falls and/or injury that could result in severe morbidity and/or mortality resulting from falls and head strike and/or broken bones. The patient acknowledged that there was risk in returning home; however, that was his preference and would not accept any disposition to subacute rehab. My evaluation of his capacity, the patient did understand the risks and benefits of choosing to return home as did his , they understood alternatives and was free of any substance alterations or mental illness that would hinder his ability to make this decision. I also discussed with the patient and his that the narcotics he taken for his chronic were likely to have contributed to increased risk for fall, which was primarily responsible for his presentation to the hospital and he should consider titrating these medications down. However, the patient was not willing to attempt on a narcotic titration while hospitalized and seemed precontemplative to address this as an outpatient. At followup, please: 1. Please consider narcotic titration as indicated above. 2. The patient was seen in the hospital by Dr. Melchor, had a difficult time with hip examination given the patient's lethargy. Recommended followup when pain is improved. Please ensure the patient follows up with Orthopedic Surgery upon discharge. 3. No other specific labs or vitals that need followup. Reasons to return to the hospital including but not limited to recurrent or worsening symptoms, worsening pain, decreased mobility, chest pain, shortness of breath, nausea, vomiting, lightheadedness, loss of consciousness, or near loss of consciousness, bleeding from any source or falls that would include significant injury and/or head strike while he is on a blood thinner, discussed with the patient, they acknowledged understanding. TIME SPENT: Greater than 90 minutes was spent on discharge of this patient, greater than half was spent [id number] with the patient. Please note, the patient intermittently bladder caths at home, had a Osorio catheter placed in the emergency room, did not want to remove prior to discharge and was sent home with the Osorio catheter, which would be maintained by VNS. He and his were taught how to care for prior to the discharge. [id number]/[facility] #: [id number] DARREN
== END 2018-09-25 16:40 | disposition home or self-care (01) ==
LOC: ED 20:00 → MED 22:52
PROVIDERS: ADMIT Internal Medicine; ATTEND Internal Medicine
DX: R52 Pain, unspecified (principal); Z91.81 History of falling; J44.9 Chronic obstructive pulmonary disease, unspecified; R41.0 Disorientation, unspecified; I50.22 Chronic systolic (congestive) heart failure; G47.33 Obstructive sleep apnea (adult) (pediatric); I25.10 Atherosclerotic heart disease of native coronary artery without angina pectoris; I63.9 Cerebral infarction, unspecified; I48.0 Paroxysmal atrial fibrillation; Z96.641 Presence of right artificial hip joint; Z79.01 Long term (current) use of anticoagulants; Z79.82 Long term (current) use of aspirin; Z79.899 Other long term (current) drug therapy; K21.9 Gastro-esophageal reflux disease without esophagitis; R60.0 Localized edema
CPT/HCPCS: 36415; 72192; 80053; 81003; 83735; 83880; 85025; 85048; 85652; 85730; 86140; 93005; 94640; 94660; 96374; 96375; 99284; A9270-GY; G0378; G8978-GP-CL; G8978-GP-CM; G8979-GP-CI; G8979-GP-CJ; G8987-GO-CM; G8988-GO-CJ; J2270; J3010

== ENCOUNTER 2018-10-01 13:12 | Inpatient (IN) | payer MEDICARE ==
[2018-10-01] MEDS ORDERED: Ondansetron INJ* 2 MG/ML VIAL IV ONE (15:06)
[2018-10-01] MEDS ORDERED: Morphine 4 MG/ML VIAL (1 ml) 4 MG/ML VIAL IV ONE ×2 (15:06→16:02)
[2018-10-01 15:46] LABS: ABS Basophils 0.1 10^3/ul (0-0.2); ABS Eosinophils 0.4 10^3/ul (0-0.6); ABS Lymphocytes 1.9 10^3/ul (1.0-4.8); ABS Monocytes 1.1 10^3/ul (0-0.8); ABS Neutrophils 6.8 10^3/ul (1.5-7.7); Eosinophil % 4.3 %; Hematocrit 37 % (42-52); Hemoglobin 12.3 g/dL (14.0-18.0); Lymphocyte % 18.4 %; Mean Corpuscular HGB Conc 33 g/dL (31-36); Mean Corpuscular Hemoglobin 31 pg (27-31); Mean Corpuscular Volume 92 fL (80-94); Mean Platelet Volume 7.7 fL (7.4-10.4); Platelet Count 166 10^3/uL (150-450); Red Blood Count 4.02 10^6 /uL (4.18-5.48); Red Cell Distribution Width 14 % (10-15); White Blood Count 10.4 10^3/uL (3.5-10.8)
[2018-10-01] MEDS ORDERED: Ketorolac INJ* 30 MG/ML 1 ML VIAL IV PUSH ONE (16:13)
[2018-10-01 16:25] LABS: Albumin 3.3 g/dL (3.2-5.2); Albumin/Globulin Ratio 1.3 (1-3); BUN/Creatinine Ratio 25.4 (8-20); C Reactive Protein 14.59 mg/L (<8.01); EGFR African American 161.6 (>60); EGFR Non-African American 133.6 (>60); Globulin 2.6 g/dL (2-4); Potassium 4.3 mmol/L (3.5-5.0); Total Bilirubin 0.5 mg/dL (0.2-1.0); Total Protein 5.9 g/dL (6.4-8.9)
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
--- NOTE | 2018-10-01 18:00 | CONSULT ---
Consult Consult: Orthopedic Surgery Consultation Date: 10/01/18 Requesting Service: ER Chief Complaint: Left lower extremity pain History: 78M with multiple medical comorbidities. He had a recent hospitalization with left hip pain and difficulty with ambulation. He ended up being discharged home and did well for a few days, but then a couple days prior to this most recent presentation, started complaining of pain in the left lower leg. No injury or falls. No fevers or chills. He reports pain from the left knee to the left ankle. He is confused with giving a history and does contradict himself multiple times. His gives a clearer history. She does report that he has been having some weakness in the left lower extremity as well. Review of Systems: Negative for fever, recent visual changes, difficulty swallowing, chest pain, shortness of breath, abdominal pain, and diffuse rash. Positive for weakness and falls. PMH: COPD, CHF, INDIGO, chronic pain, neurogenic bladder, CAD, CVA, atrial fibrillation on Eliquis PSH: Bilateral total hip replacement, cholecystectomy, AVM repair Medications: Eliquis, Crestor, furosemide, albuterol, meloxicam, Lidoderm, Lexapro, Avodart, OxyContin, omeprazole, Toprol, aspirin Allergies: Oral and IV dye SH: Lives with . Retired. No tobacco or alcohol use. FH: Coronary artery disease, cancer, diabetes Physical Examination: Constitutional: Temp Pulse Resp BP Pulse Ox 97.6 F 86 20 105/62 100 10/01/18 16:51 10/01/18 17:40 10/01/18 15:18 10/01/18 17:40 10/01/18 17:40 General appearance is healthy and non-septic in no acute distress. Cardiovascular: Pulse examination demonstrates positive pedal pulses with brisk capillary refill. There are no varicosities. Abdomen: Soft and nontender Lymphatic: No lymphadenopathy appreciated. Skin: Bilateral upper and lower extremity examination demonstrates no ulcerative lesions. Psychiatric / Neurological: Appropriate affect. Alert and oriented to person, place. Normoreflexive deep tendon reflex of the affected extremity. Musculoskeletal: Bilateral upper extremities and contralateral lower extremity show full range of motion with no evidence of instability and no tenderness with palpation and 5 /5 strength. There is no gross deformity. He has no tenderness about the hip and painless hip range of motion. No tenderness about the thigh. He does appear to have some tenderness about the lateral tibial plateau and some pain with knee range of motion, although this is inconsistent. During part of exam he seemed to have a lot of pain with knee range of motion, and during other parts he seemed to have no pain. Initially, he had tenderness when I palpated the lower leg, but again, once he was distracted, this did not bother him at all. I was able to get him to range the hip, knee and ankle on his own without pain. Skin intact No calf TTP He has b/l LE edema equal bilaterally He seems to have some diminished sensation to light touch bilaterally in his feet. Imaging: X-rays were obtained, and independently interpreted and show no fracture of the hip, femur, knee, leg, ankle, foot. Also reviewed his CT scan and did not see any fractures or malalignment. He does have knee osteoarthritis. He does have bilateral total hip replacements. Labs: WBC 10 Impression and Plan: Left lower extremity pain, very inconsistent on examination. Difficulty with ambulation. It is not entirely clear what the source of his pain is, and his exam changed significantly throughout my time with him. It does appear that the knee is the epicenter of the pain. We could consider an MRI to assess for insufficiency fracture that is not being appreciated on x-ray or CT scan. I do not think he has a septic joint given his good range of motion. No evidence of compartment syndrome on exam. I would recommend an ultrasound to rule out a DVT. Another possibility would be lumbar spine pathology causing left lower extremity pain and some weakness. Consideration could be given to lumbar spine imaging and involvement of a verifying specialist if needed. Silverio Melchor MD
[2018-10-01] MEDS ORDERED: Furosemide TAB* 40 MG PO PRN (18:08)
[2018-10-01] MEDS ORDERED: Albuterol 2.5 MG/3 ML NEB.SOL* (0.083%) INH PRN (18:08)
[2018-10-01] MEDS ORDERED: oxyCODONE SR TAB(*) 15 MG TAB.SR PO SCH (21:00)
[2018-10-01] MEDS: Apixaban* 5 MG TAB PO SCH (21:09)
[2018-10-01] MEDS: Pantoprazole TAB * 40 MG TAB PO SCH (21:09)
--- NOTE | 2018-10-02 04:01 | HP ---
CC: Dr. Melchor; Dr. Paz * HISTORY AND PHYSICAL: DATE OF ADMISSION: 10/01/18 PROVIDER: Areli Macias NP PRIMARY CARE PROVIDER: Dr. Paz. ATTENDING PROVIDER: Donna Han MD * (DICTATED BY ARELI MACIAS NP) CHIEF COMPLAINT: Weakness, left leg pain. HISTORY OF PRESENT ILLNESS: Mr. Sethi is a 78-year-old male with a history of chronic bilateral leg edema and chronic respiratory failure requiring oxygen at 2 to 4 L, systolic congestive heart failure with an EF of 45%, history of COPD, coronary artery disease, CVA without deficit, paroxysmal atrial fibrillation on Eliquis, history of left arm AV malformation repair, who presented to the emergency room complaining of left leg pain. The patient reports that he continues to have left leg pain and it was hard to walk and maneuver at home. The patient reports that he was unable to stand, unable to participate in home PT due to the pain in his left leg. He had a workup in the emergency room with several x-rays and a CT of the left leg which did not show any acute fracture or pathology. He was also seen and evaluated by Dr. Melchor from Orthopedics who recommended an MRI of the knee. Due to the patient's intractable pain and inability to ambulate, we were asked to see and evaluate him for admission. PAST MEDICAL HISTORY: Significant for: 1. Chronic obstructive pulmonary disease with chronic hypercapnic respiratory failure and hypoxic respiratory failure, on home oxygen. 2. Systolic congestive heart failure, chronic. 3. Obstructive sleep apnea. 4. Neurogenic bladder with self-catheterization. 5. Coronary artery disease. 6. History of CVA. 7. History of paroxysmal atrial fibrillation, on Eliquis. 8. History of left arm AV malformation with repair. PAST SURGICAL HISTORY: 1. Bilateral hip replacements. 2. AVM repair of the left arm. MEDICATIONS: Home medications include: 1. Crestor 5 mg p.o. daily. 2. Incruse Ellipta 1 puff inhale daily. 3. Lasix 40 mg p.o. daily. 4. Albuterol 2 puffs every 4 hours as needed. 5. Albuterol/Ventolin nebulizer every 4 to 6 hours as needed. 6. Ferrous sulfate 325 mg p.o. daily. 7. Eliquis 5 mg p.o. b.i.d. 8. Lidocaine patch, 1 patch daily transdermally. 9. Lexapro 20 mg p.o. daily. 10. Avodart 0.5 mg daily. 11. Oxycodone sustained release 15 mg b.i.d. 12. Omeprazole 20 mg twice daily. 13. Metoprolol 25 mg p.o. daily. 14. Multivitamin 1 tab p.o. daily. ALLERGIES: ORAL and IV CONTRAST. FAMILY HISTORY: Father secondary to heart disease. Mother with a history of breast cancer and diabetes. SOCIAL HISTORY: The patient is retired, he lives with his . He rarely uses alcohol. Denies any tobacco or illicit drug use. He is retried. Surrogate decision maker in the event he is unable to make his own decision is his , Rekha Sethi. REVIEW OF SYSTEMS: The patient denies any fevers, unintended weight loss, chest pain. He does report edema to the lower extremities. Denies any cough, hemoptysis or shortness of breath. No nausea, vomiting, diarrhea, or abdominal pain. No gross hematuria or dysuria. He does complain of left leg pain, left hip pain, and lower back pain as well as left knee pain. Denies any visual complaints, dysphagia. He does complain of left knee joint pain. He does have open ulcer on his left inner buttock. Denies psychosis or anxiety. PHYSICAL EXAMINATION GENERAL: At this time, Mr. Sethi is a 78-year-old male. He is in no acute distress. He is awake, alert, and oriented x3. VITAL SIGNS: Blood pressure 121/72, heart rate is 95, respirations are 20, O2 saturation 99%, temperature was 97.6. HEENT: Head is atraumatic, normocephalic. Eyes: EOMs are intact. Sclerae anicteric and not pale. Oral mucosa appeared to be moist. NECK: Supple. LUNGS: Clear to auscultation bilaterally. No wheezes, rales, or rhonchi. They are diminished in the bases. ABDOMEN: Obese, soft, and nontender. Bowel sounds are present x4. EXTREMITIES: He is able to move all 4 extremities. Pedal pulses are +2 bilaterally. He does have pain with movement of his left leg. He does have hip and knee pain with movement. He does complain of L-spine tenderness with palpation and SI joint pain with palpation. He does report shooting pain down the back of his leg with palpation of the SI joint. He does complain of left knee pain with touch and palpation to left in her knee. NEUROLOGIC: He is awake, alert, and oriented x3. Speech is clear. Thought process is intact. There are no gross focal deficits. SKIN: He does have an open ulceration noted to his left buttock. LABORATORY DATA AND DIAGNOSTIC STUDIES: WBCs are 10.4, RBCs 4.02, hemoglobin 12.3, hematocrit was 37, platelet count 166. Sodium 142, potassium 4.3, chloride 102, carbon dioxide was 35. Anion gap was 5. BUN was 15, creatinine 0.59. Glucose was 98. Calcium 9.0. ASTs were 16, ALTs were 9, alkaline phosphatase was 76. Total CK was 49. C-reactive protein was 14.59. BNP was 202. Total protein was 5.9. He had a knee x-ray of the left knee, osteopenia, osteoarthritis, no acute osseous injury. The degree of osteopenia may make a nondisplaced fracture radiographically occult. He had a lower extremity x-ray, osteopenia, no acute osseous injury. The degree of osteopenia may make a nondisplaced fracture radiographically occult. If symptoms persist, recommend a repeat imaging. He had a femur x-ray on the left, osteopenia, status post bilateral hip arthroplasties. No acute osseous injury. He had a left foot x-ray, osteopenia , osteoarthritis, soft tissue swelling, no acute osseous injury. He had a CT of the lower extremity, osteopenia, osteoarthritis, extensive soft tissue swelling, most pronounced along with distal lower extremity. No acute osseous injury. He had a venous Doppler, no evidence of right lower extremity DVT to the knee. Posterior tibial vein is also patent; however, the right peroneal vein could not be visualized. Greater saphenous vein was not visualized. Exam was limited by subcutaneous edema and the patient's pain. He had a CT of the lumbar spine. Radiologist's impression, diffuse degenerative disk and facet disease. Findings are similar to compared study from 08/31/17. No acute fracture or destructive lesions. Thecal impaction with diffuse wall thickening. ASSESSMENT AND PLAN: Mr. Sethi is a 78-year-old male with a past medical history significant for chronic obstructive pulmonary disease with hypoxic respiratory failure requiring chronic oxygen, systolic congestive heart failure , obstructive sleep apnea, atrial fibrillation, on Eliquis, history of cerebrovascular accident, and history of coronary artery disease, who presented to the emergency room with complaints of left leg pain, inability to stand and ambulate. We were asked to evaluate due to intractable left leg pain. He will be admitted under observation for: 1. Left leg pain. The patient has an unclear cause of his left leg pain. He was seen in consultation by Dr. Melchor from Orthopedics, who has recommended an MRI of the knee. MRI was ordered and is currently pending. The patient also does have some SI joint and lumbar spine tenderness with palpation. The CT of the lumbar spine did not show any acute fractures. We will continue with pain management. I will order PT evaluation and further recommendations as per Orthopedics. The patient will likely need subacute rehab at discharge. The patient was recently here on 09/23/18 to 09/25/18 for left hip pain and fall and at that time, refused subacute rehab and was discharged home against medical advice. I will continue his oxycodone sustained release 50 mg p.o. daily. The patient's does report that the patient takes this twice daily. I will order it once daily as the patient is very drowsy and unable to stay awake during conversation. 2. Obstructive sleep apnea. The patient should continue on BiPAP at night. He should continue home medications as previously prescribed. 3. Atrial fibrillation. He will continue on metoprolol 25 mg daily and Eliquis 5 mg p.o. b.i.d. 4. Hyperlipidemia. I will place him on atorvastatin 10 mg p.o. daily. 5. COPD. The patient will continue on albuterol and Ventolin nebulizers every 4 hours as needed for shortness of breath and Incruse Ellipta inhaler daily. 6. History of systolic heart failure. The patient appears to be euvolemic. I will continue him on Lasix 40 mg p.o. daily. 7. GERD. The patient will continue on pantoprazole 40 mg p.o. b.i.d. 8. DVT prophylaxis. The patient will continue on Eliquis 5 mg p.o. b.i.d. 9. Code status. The patient is a full code. 10. Diet. The patient can have a heart-healthy caffeine okay diet. TIME SPENT: Time spent on this admission was 65 minutes, greater than half that time was spent at the bedside reviewing the events leading thus far to his hospitalization, performing physical exam, and reviewing my plan of care. I have discussed this with my attending Dr. Donna Han; she is in agreement with my plan. ARELI MACIAS, CHANCELLOR [id number]/[facility] #: [id number] DARREN
[2018-10-02] MEDS: Metoprolol Succinate XL TAB* 25 MG PO SCH (07:51)
[2018-10-02] MEDS: Atorvastatin* 10 MG TAB PO SCH (07:51)
[2018-10-02] MEDS: Apixaban* 5 MG TAB PO SCH ×2 (07:51→20:37)
[2018-10-02] MEDS: Pantoprazole TAB * 40 MG TAB PO SCH ×2 (07:51→20:37)
[2018-10-02] MEDS: Furosemide TAB* 40 MG PO SCH (07:51)
[2018-10-02] MEDS: Ferrous Sulfate TAB* 325 MG PO SCH (07:51)
[2018-10-02] MEDS: Multivitamins/Minerals TAB PO SCH ×2 (07:52→08:00)
[2018-10-02] MEDS: Acetaminophen TAB* 325 MG PO PRN ×3 (07:52→20:36)
[2018-10-02] MEDS: Lidocaine PATCH 5%* 1 PATCH TRANSDERM SCH (07:56)
[2018-10-02] MEDS: oxyCODONE SR TAB(*) 15 MG TAB.SR PO SCH (10:06)
--- NOTE | 2018-10-02 10:30 | PN ---
Progress Note - Progress Note Date of Service: 10/02/18 Note: Attempted to evaluate patient this am. Laying supine in bed partially on his right side. Opens eyes to voice and then immediately falls asleep. Nursing reports he has been excessively somnolent this am. Narcotic pain meds have been held secondary to this. When patient awake reports continued diffuse left leg/ hip pain. Awaiting cardiology records from outside facility to see if he can have MRI of the left knee to rule out occult fracture. Recent workup thus far showing no fractures LLE, degenerative changes LS spine. P: Await MRI left knee ( awaiting records/ cardiac hardware) pain management per medicine
[2018-10-02] MEDS: Escitalopram * 20 MG TABLET PO SCH (13:38)
[2018-10-02] MEDS: Albuterol HFA INHALER* 8 gm MDI INH PRN (15:23)
[2018-10-02 17:45] LABS: Urine Appearance Cloudy; Urine Bacteria Absent (Absent); Urine Bilirubin Negative (Negative); Urine Blood Negative (Negative); Urine Color Yellow; Urine Glucose Negative (Negative); Urine Ketones Negative (Negative); Urine Nitrite Negative (Negative); Urine Protein Negative (Negative); Urine Red Blood Cell Trace(0-2/hpf) (Absent); Urine Specific Gravity 1.008 (1.010-1.030); Urine Urobilinogen Negative (Negative); Urine White Blood Cell 1+(6-10/hpf) (Absent)
--- NOTE | 2018-10-02 19:44 | PN ---
Subjective Date of Service: 10/02/18 Interval History: HOSPITALIST PROGRESS NOTE Patient seen and examined at bedside. Care reviewed and d/w Yuly Stratton RN. Patient was lethargic during my visit. Had complained of severe back and left leg pain, but when nurse went to administer pain medication, had to hold it due to his drowsiness. Family History: Unchanged from Admission Social History: Unchanged from Admission Past Medical History: Unchanged from Admission Objective Active Medications: Acetaminophen (Tylenol Tab*) 650 mg PO Q4H PRN PRN Reason: FEVER/PAIN Last Admin: 10/02/18 13:38 Dose: 650 mg Albuterol (Ventolin 2.5 Mg/3 Ml Neb.Damaris*) 2.5 mg INH Q4H PRN PRN Reason: SHORTNESS OF BREATH Albuterol (Ventolin Hfa Inhaler*) 2 puff INH Q4H PRN PRN Reason: SHORTNESS OF BREATH Last Admin: 10/02/18 15:23 Dose: 2 puff Apixaban (Eliquis*) 5 mg PO BID [facility] Last Admin: 10/02/18 07:51 Dose: 5 mg Atorvastatin Calcium (Lipitor*) 10 mg PO DAILY [facility]; Protocol Last Admin: 10/02/18 07:51 Dose: 10 mg Escitalopram Oxalate (Lexapro *) 20 mg PO DAILY [facility] Last Admin: 10/02/18 13:38 Dose: 20 mg Ferrous Sulfate (Ferrous Sulfate Tab*) 325 mg PO DAILY [facility] Last Admin: 10/02/18 07:51 Dose: 325 mg Furosemide (Lasix Tab*) 40 mg PO DAILY [facility] Last Admin: 10/02/18 07:51 Dose: 40 mg Lidocaine (Lidoderm 5% Patch*) 1 patch TRANSDERM DAILY [facility] Last Admin: 10/02/18 07:56 Dose: 1 patch Metoprolol Succinate (Toprol Xl Tab*) 25 mg PO DAILY [facility] Last Admin: 10/02/18 07:51 Dose: 25 mg Multivitamins/Minerals (Theragran/Minerals Tab*) 1 tab PO DAILY [facility] Last Admin: 10/02/18 08:00 Dose: Not Given Oxycodone HCl (Oxycontin(*)) 15 mg PO DAILY [facility] Last Admin: 10/02/18 10:06 Dose: Not Given Pantoprazole Sodium (Protonix Tab*) 40 mg PO BID [facility] Last Admin: 10/02/18 07:51 Dose: 40 mg Pharmacy Profile Note (Lidocaine Patch Remove*) 1 note PATCH OFF 2099 [facility] Vital Signs - 8 hr 10/02/18 10/02/18 15:00 15:24 Temperature 97.5 F Pulse Rate 80 81 Respiratory 24 18 Rate Blood Pressure 122/68 (mmHg) O2 Sat by Pulse 98 96 Oximetry Oxygen Devices in Use Now: Nasal Cannula Appearance: Elderly morbid obese male lying in bed in NAD, lethargic Respiratory: Symmetrical Chest Expansion and Respiratory Effort, Clear to Auscultation Cardiovascular: - - Normal S1 and S2, irregularly irregular Abdominal: - - Obese Neurological: - - Drowsy, arousable Result Diagrams: 10/01/18 15:35 10/01/18 15:35 Assess/Plan/Problems-Billing Assessment: Mr Sethi is a 78yo M with PMH of obesity, COPD on home O2, systolic CHF, INDIGO , neurogenic bladder (self caths at home), CAD, CVA, PAF on Apixaban, h/o left arm AVM coiling, [place] [facility] [place]25 after sustaining a fall with c/o left hip pain; presented to ED on 10/01/18 c/o left leg pain and inability to ambulate. - Patient Problems (1) Left leg pain Comment: - Etiology unclear at this time. - Ortho input appreciated. - Extensive w/u done so far with no clear source, including doppler negative for DVT. 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 D/w Dr Melchor - unclear if further imaging would be benefitial. - Continue pain management. - Patient requires a Gisel lift for transfers - will need GIO. (2) INDIGO (obstructive sleep apnea) Comment: - Continue BiPAP. (3) Afib Comment: - Continue Apixaban and Metoprolol. (4) COPD (chronic obstructive pulmonary disease) Comment: - Continue bronchodilators. (5) Neurogenic bladder Comment: - Usually self caths at home, but unable to do so now - will place Osorio. (6) DVT prophylaxis Comment: - Apixaban. (7) Full code status Comment: Status and Disposition: OBV.
[2018-10-02] MEDS: Lidocaine Patch REMOVE* 1 NOTE MISC PATCH OFF SCH (20:37)
[2018-10-03] MEDS: oxyCODONE TAB* 5 MG TAB PO PRN ×2 (01:44→17:48)
[2018-10-03] MEDS: Apixaban* 5 MG TAB PO SCH ×2 (08:16→21:16)
[2018-10-03] MEDS: Atorvastatin* 10 MG TAB PO SCH (08:16)
[2018-10-03] MEDS: Ferrous Sulfate TAB* 325 MG PO SCH (08:16)
[2018-10-03] MEDS: Metoprolol Succinate XL TAB* 25 MG PO SCH (08:16)
[2018-10-03] MEDS: Escitalopram * 20 MG TABLET PO SCH (08:16)
[2018-10-03] MEDS: oxyCODONE SR TAB(*) 15 MG TAB.SR PO SCH (08:16)
[2018-10-03] MEDS: Pantoprazole TAB * 40 MG TAB PO SCH ×2 (08:16→21:16)
[2018-10-03] MEDS: Furosemide TAB* 40 MG PO SCH (08:16)
[2018-10-03] MEDS: Lidocaine PATCH 5%* 1 PATCH TRANSDERM SCH (08:18)
[2018-10-03] MEDS: Multivitamins/Minerals TAB PO SCH (08:19)
--- NOTE | 2018-10-03 12:54 | PN ---
Subjective Date of Service: 10/03/18 Interval History: C/O pain L leg thigh to toes, hasn't been out of bed today. C/O bedsores. Frequently states "I want to go home." Family History: Unchanged from Admission Social History: Unchanged from Admission Past Medical History: Unchanged from Admission Objective Active Medications: Acetaminophen (Tylenol Tab*) 650 mg PO Q4H PRN PRN Reason: FEVER/PAIN Last Admin: 10/02/18 20:36 Dose: 650 mg Albuterol (Ventolin 2.5 Mg/3 Ml Neb.Damaris*) 2.5 mg INH Q4H PRN PRN Reason: SHORTNESS OF BREATH Last Admin: 10/02/18 19:50 Dose: 2.5 mg Albuterol (Ventolin Hfa Inhaler*) 2 puff INH Q4H PRN PRN Reason: SHORTNESS OF BREATH Last Admin: 10/02/18 15:23 Dose: 2 puff Apixaban (Eliquis*) 5 mg PO BID [facility] Last Admin: 10/03/18 08:16 Dose: 5 mg Atorvastatin Calcium (Lipitor*) 10 mg PO DAILY [facility]; Protocol Last Admin: 10/03/18 08:16 Dose: 10 mg Escitalopram Oxalate (Lexapro *) 20 mg PO DAILY [facility] Last Admin: 10/03/18 08:16 Dose: 20 mg Ferrous Sulfate (Ferrous Sulfate Tab*) 325 mg PO DAILY [facility] Last Admin: 10/03/18 08:16 Dose: 325 mg Furosemide (Lasix Tab*) 40 mg PO DAILY [facility] Last Admin: 10/03/18 08:16 Dose: 40 mg Gabapentin (Neurontin Cap(*)) 100 mg PO TID [facility] Lidocaine (Lidoderm 5% Patch*) 1 patch TRANSDERM DAILY [facility] Last Admin: 10/03/18 08:18 Dose: Not Given Metoprolol Succinate (Toprol Xl Tab*) 25 mg PO DAILY [facility] Last Admin: 10/03/18 08:16 Dose: 25 mg Multivitamins/Minerals (Theragran/Minerals Tab*) 1 tab PO DAILY [facility] Last Admin: 10/03/18 08:19 Dose: Not Given Oxycodone HCl (Oxycontin(*)) 15 mg PO DAILY [facility] Last Admin: 10/03/18 08:16 Dose: 15 mg Oxycodone HCl (Roxycodone Tab*) 5 mg PO Q6H PRN PRN Reason: SEVERE PAIN Last Admin: 10/03/18 01:44 Dose: 5 mg Pantoprazole Sodium (Protonix Tab*) 40 mg PO BID [facility] Last Admin: 10/03/18 08:16 Dose: 40 mg Pharmacy Profile Note (Lidocaine Patch Remove*) 1 note PATCH OFF 2100 [facility] Last Admin: 10/02/18 20:37 Dose: 1 note Vital Signs - 8 hr 10/03/18 10/03/18 10/03/18 07:00 08:00 08:16 Temperature 97.8 F Pulse Rate 88 Respiratory 26 24 24 Rate Blood Pressure 146/86 (mmHg) O2 Sat by Pulse 100 Oximetry 10/03/18 11:00 Temperature 97 F Pulse Rate 92 Respiratory 20 Rate Blood Pressure 130/64 (mmHg) O2 Sat by Pulse 98 Oximetry Oxygen Devices in Use Now: Nasal Cannula Appearance: Alert, partly up in bed. Neutral affect, looks comfortable. Eyes: No Scleral Icterus Extremities: No Edema, No Clubbing, Cyanosis, - - No tenderness. Can flex L hip and L knee without signs of discomfort. Skin: No Rash or Ulcers, No Nodules or Sclerosis, - Neurological: Alert and Oriented x 3, NL Sensation Result Diagrams: 10/01/18 15:35 10/01/18 15:35 Additional Lab and Data: Lab Results 10/01/18 10/01/18 10/01/18 Range/Units 15:35 15:35 15:47 WBC 10.4 (3.5-10.8) 10^3/uL RBC 4.02 L (4.18-5.48) 10^6 /uL Hgb 12.3 L (14.0-18.0) g/dL Hct 37 L (42-52) % MCV 92 (80-94) fL MCH 31 (27-31) pg MCHC 33 (31-36) g/dL RDW 14 (10-15) % Plt Count 166 (150-450) 10^3/uL MPV 7.7 (7.4-10.4) fL Neut % (Auto) 65.6 % Lymph % (Auto) 18.4 % [place] % (Auto) 11.0 % Eos % (Auto) 4.3 % Baso % (Auto) 0.7 % Absolute Neuts (auto) 6.8 (1.5-7.7) 10^3/ul Absolute Lymphs (auto) 1.9 (1.0-4.8) 10^3/ul Absolute Monos (auto) 1.1 H (0-0.8) 10^3/ul Absolute Eos (auto) 0.4 (0-0.6) 10^3/ul Absolute Basos (auto) 0.1 (0-0.2) 10^3/ul Absolute Nucleated RBC 0.0 10^3/ul Nucleated RBC % 0.0 Sodium 142 (135-145) mmol/L Potassium 4.3 (3.5-5.0) mmol/L Chloride 102 (101-111) mmol/L Carbon Dioxide 35 H (22-32) mmol/L Anion Gap 5 (2-11) mmol/L BUN 15 (6-24) mg/dL Creatinine 0.59 L (0.67-1.17) mg/dL Est GFR ( Amer) 161.6 (>60) Est GFR (Non-Af Amer) 133.6 (>60) BUN/Creatinine Ratio 25.4 H (8-20) Glucose 98 (70-100) mg/dL Calcium 9.0 (8.6-10.3) mg/dL Total Bilirubin 0.50 (0.2-1.0) mg/dL AST 16 (13-39) U/L ALT 9 (7-52) U/L Alkaline Phosphatase 76 (34-104) U/L Total Creatine Kinase 49 (10-223) U/L C-Reactive Protein 14.59 H (<8.01) mg/L B-Natriuretic Peptide 202 H (<=100) pg/mL Total Protein 5.9 L (6.4-8.9) g/dL Albumin 3.3 (3.2-5.2) g/dL Globulin 2.6 (2-4) g/dL Albumin/Globulin Ratio 1.3 (1-3) Assess/Plan/Problems-Billing Assessment: Mr Sethi is a 78yo M with PMH of obesity, COPD on home O2, systolic CHF, INDIGO , neurogenic bladder (self caths at home), CAD, CVA, PAF on Apixaban, h/o left arm AVM coiling, recent admission to [facility] from 09/23 to 09/25 after sustaining a fall with c/o left hip pain; presented to ED on 10/01/18 c/o left leg pain and inability to ambulate. - Patient Problems (1) Left leg pain Current Visit: Yes Status: Acute Code(s): M79.605 - PAIN IN LEFT LEG SNOMED Code(s): 036434043 Comment: - Etiology unclear at this time. Note has been patient in [facility] > 20 yrs. - Ortho input appreciated. - Extensive w/u done so far with no clear source, including doppler negative for DVT. 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 D/w Dr Melchor - unclear if further imaging would be beneficial. Gabapentin started 7/4 2 PM, would titrate up if no effect. Patient requests "Soma" but I don't see any indication for that. - Continue pain management. - Patient requires a Gisel lift for transfers - will need GIO. (2) INDIGO (obstructive sleep apnea) Current Visit: Yes Status: Acute Code(s): G47.33 - OBSTRUCTIVE SLEEP APNEA ( ADULT) (PEDIATRIC) SNOMED Code(s): 31370115 Comment: - Continue BiPAP. Uses O2 3 L at home, would not exceed that here. Note chronic CO2 retention. (3) Afib Current Visit: Yes Status: Acute Code(s): I48.91 - UNSPECIFIED ATRIAL FIBRILLATION SNOMED Code(s): 24671274 Comment: - Continue Apixaban and Metoprolol. (4) COPD (chronic obstructive pulmonary disease) Current Visit: Yes Status: Acute Code(s): J44.9 - CHRONIC OBSTRUCTIVE PULMONARY DISEASE, UNSPECIFIED SNOMED Code(s): 11913210 Comment: - Continue bronchodilators. Status and Disposition: OBV.
[2018-10-03] MEDS: Gabapentin CAP(*) 100 MG PO SCH ×2 (13:50→21:16)
[2018-10-03] MEDS: Acetaminophen TAB* 325 MG PO PRN ×2 (13:50→17:47)
[2018-10-03] MEDS: Lidocaine Patch REMOVE* 1 NOTE MISC PATCH OFF SCH (21:16)
[2018-10-04] MEDS: Acetaminophen TAB* 325 MG PO PRN ×3 (02:35→17:36)
[2018-10-04] MEDS: Albuterol HFA INHALER* 8 gm MDI INH PRN ×3 (02:45→19:27)
[2018-10-04] MEDS: Ferrous Sulfate TAB* 325 MG PO SCH (08:28)
[2018-10-04] MEDS: Metoprolol Succinate XL TAB* 25 MG PO SCH (08:28)
[2018-10-04] MEDS: Escitalopram * 20 MG TABLET PO SCH (08:28)
[2018-10-04] MEDS: Furosemide TAB* 40 MG PO SCH (08:28)
[2018-10-04] MEDS: Atorvastatin* 10 MG TAB PO SCH (08:29)
[2018-10-04] MEDS: Gabapentin CAP(*) 100 MG PO SCH ×3 (08:30→21:10)
[2018-10-04] MEDS: oxyCODONE SR TAB(*) 15 MG TAB.SR PO SCH (08:31)
[2018-10-04] MEDS: Multivitamins/Minerals TAB PO SCH (08:31)
[2018-10-04] MEDS: Lidocaine PATCH 5%* 1 PATCH TRANSDERM SCH (08:32)
[2018-10-04] MEDS: Apixaban* 5 MG TAB PO SCH ×2 (08:32→21:10)
[2018-10-04] MEDS: Pantoprazole TAB * 40 MG TAB PO SCH ×2 (08:32→21:10)
--- NOTE | 2018-10-04 14:26 | PN ---
Subjective Date of Service: 10/04/18 Interval History: No acute events overnight, afebrile. UCx with 50-75K Klebsiella Pna Pain in left leg (specifically thigh and knee) when sitting on side of bed (12/10 ) but not currently. Pain in neck turning side to side ("stretching" pain radiating down toward sternum) for several weeks. Lost both brothers and a son in recent years. Things have gone done hill since. Family History: Unchanged from Admission Social History: Unchanged from Admission Past Medical History: Unchanged from Admission Objective Active Medications: Acetaminophen (Tylenol Tab*) 650 mg PO Q4H PRN PRN Reason: FEVER/PAIN Last Admin: 10/04/18 11:33 Dose: 650 mg Albuterol (Ventolin 2.5 Mg/3 Ml Neb.Damaris*) 2.5 mg INH Q4H PRN PRN Reason: SHORTNESS OF BREATH Last Admin: 10/02/18 19:50 Dose: 2.5 mg Albuterol (Ventolin Hfa Inhaler*) 2 puff INH Q4H PRN PRN Reason: SHORTNESS OF BREATH Last Admin: 10/04/18 07:39 Dose: 2 puff Apixaban (Eliquis*) 5 mg PO BID [facility] Last Admin: 10/04/18 08:32 Dose: 5 mg Atorvastatin Calcium (Lipitor*) 10 mg PO DAILY [facility]; Protocol Last Admin: 10/04/18 08:29 Dose: 10 mg Escitalopram Oxalate (Lexapro *) 20 mg PO DAILY [facility] Last Admin: 10/04/18 08:28 Dose: 20 mg Ferrous Sulfate (Ferrous Sulfate Tab*) 325 mg PO DAILY [facility] Last Admin: 10/04/18 08:28 Dose: 325 mg Furosemide (Lasix Tab*) 40 mg PO DAILY [facility] Last Admin: 10/04/18 08:28 Dose: 40 mg Gabapentin (Neurontin Cap(*)) 100 mg PO TID [facility] Last Admin: 10/04/18 13:58 Dose: 100 mg Ceftriaxone Sodium 1 gm/ (Sodium Chloride) 50 mls @ 200 mls/hr IVPB Q24H [facility] Lidocaine (Lidoderm 5% Patch*) 1 patch TRANSDERM DAILY [facility] Last Admin: 10/04/18 08:32 Dose: 1 patch Metoprolol Succinate (Toprol Xl Tab*) 25 mg PO DAILY [facility] Last Admin: 10/04/18 08:28 Dose: 25 mg Multivitamins/Minerals (Theragran/Minerals Tab*) 1 tab PO DAILY [facility] Last Admin: 10/04/18 08:31 Dose: 1 tab Oxycodone HCl (Oxycontin(*)) 15 mg PO DAILY [facility] Last Admin: 10/04/18 08:31 Dose: 15 mg Oxycodone HCl (Roxycodone Tab*) 5 mg PO Q6H PRN PRN Reason: SEVERE PAIN Last Admin: 10/03/18 17:48 Dose: 5 mg Pantoprazole Sodium (Protonix Tab*) 40 mg PO BID [facility] Last Admin: 10/04/18 08:32 Dose: 40 mg Pharmacy Profile Note (Lidocaine Patch Remove*) 1 note PATCH OFF 2099 [facility] Last Admin: 10/03/18 21:16 Dose: Not Given Vital Signs - 8 hr 10/04/18 10/04/18 10/04/18 07:15 07:40 08:30 Temperature 97.7 F Pulse Rate 97 Respiratory 24 24 Rate Blood Pressure 191/90 142/80 (mmHg) O2 Sat by Pulse 100 Oximetry 10/04/18 10/04/18 10/04/18 08:31 11:22 13:58 Temperature 96.8 F Pulse Rate 87 Respiratory 24 26 25 Rate Blood Pressure 132/70 (mmHg) O2 Sat by Pulse 99 Oximetry Oxygen Devices in Use Now: Nasal Cannula Appearance: NAD, initially asleep but easily arousable. Eyes: No Scleral Icterus, PERRLA Ears/Nose/Mouth/Throat: Clear Oropharnyx Neck: NL Appearance and Movements; NL JVP Respiratory: Symmetrical Chest Expansion and Respiratory Effort, - - anteriorly CTAB Cardiovascular: NL Sounds; No Murmurs; No JVD Abdominal: - - soft, some RUQ tenderness, no rebound, no guarding no López's sign. Extremities: No Edema Skin: No Rash or Ulcers, No Nodules or Sclerosis Neurological: Alert and Oriented x 3 Nutrition: Taking PO's Result Diagrams: 10/01/18 15:35 10/01/18 15:35 Microbiology and Other Data: Microbiology 10/02/18 13:55 Urine Urine Culture - Final Klebsiella Pneumoniae Assess/Plan/Problems-Billing Assessment: Mr Sethi is a 78yo M with PMH of obesity, COPD on home O2, systolic CHF, INDIGO , neurogenic bladder (self caths at home), CAD, CVA, pAFib on Apixaban, h/o left arm AVM coiling, recent admission to [facility] from 09/23 to 09/25 after sustaining a fall with c/o left hip pain; presented to ED on 10/01/18 c/o left leg pain and inability to ambulate. - Patient Problems (1) Left leg pain Current Visit: Yes Status: Acute Code(s): M79.605 - PAIN IN LEFT LEG SNOMED Code(s): 612125754 Comment: - Etiology unclear at this time. Note has been patient in [facility] > 20 yrs. - Ortho input appreciated. - Extensive w/u done so far with no clear source, including doppler negative for DVT. - Ortho recommended MRI knee, but patient had left arm AVM coiling and after reviewing records from [facility], he was deemed not a candidate, as the operative report does not state coils turbine assembler and they cannot check if these are MRI compatible or not. D/w Dr Melchor - unclear if further imaging would be beneficial. Gabapentin started 10/03 2 PM, will increase to 200 TID. - adding robaxin for his neck pains - Continue pain management. - Patient requires a Gisel lift for transfers - will need GIO. (2) UTI due to Klebsiella species Current Visit: Yes Status: Acute Code(s): N39.0 - URINARY TRACT INFECTION, SITE NOT SPECIFIED; B96.1 - KLEBSIELLA PNEUMONIAE THE CAUSE OF DISEASES [facility] SNOMED Code(s): 454583091756993 Comment: Start CFTX 1g q24 (3) Afib Current Visit: Yes Status: Acute Code(s): I48.91 - UNSPECIFIED ATRIAL FIBRILLATION SNOMED Code(s): 67946811 Comment: - Continue Apixaban 5mg BID and Metoprolol succinate 25mg daily (4) COPD (chronic obstructive pulmonary disease) Current Visit: Yes Status: Acute Code(s): J44.9 - CHRONIC OBSTRUCTIVE PULMONARY DISEASE, UNSPECIFIED SNOMED Code(s): 63720114 Comment: - Continue bronchodilators. - not in acute exacerbation. - chronic hypoxic respiratory failure. (5) Neurogenic bladder Current Visit: Yes Status: Acute Code(s): N31.9 - NEUROMUSCULAR DYSFUNCTION OF BLADDER, UNSPECIFIED SNOMED Code(s): 058981105 Comment: - Usually self caths at home, but unable to do so now and Osorio was placed. (6) INDIGO (obstructive sleep apnea) Current Visit: Yes Status: Acute Code(s): G47.33 - OBSTRUCTIVE SLEEP APNEA ( ADULT) (PEDIATRIC) SNOMED Code(s): 17087411 Comment: - Continue BiPAP. Uses O2 3 L at home, would not exceed that here. Note chronic CO2 retention. (7) BPH (benign prostatic hyperplasia) Current Visit: No Status: Acute Code(s): N40.0 - BENIGN PROSTATIC HYPERPLASIA WITHOUT LOWER URINRY TRACT SYMP SNOMED Code(s): 190462383 Comment: -Continue Finasteride (8) Neck pain Current Visit: No Status: Acute Code(s): M54.2 - CERVICALGIA SNOMED Code(s ): 80539040 Comment: Likely related to falls. CT C spine neg for fracture or dislocation. Continue analgesics. adding robaxin given description of "stretching" pain with movements. Status and Disposition: medicine inpatient. referred to [facility].
[2018-10-04] MEDS ORDERED: Methocarbamol TAB* 500 MG PO PRN (14:50)
[2018-10-04] MEDS: cefTRIAXone(*) 1 GM in NS 0.9% 50 ML* 50 ML IVPB SCH (15:16)
[2018-10-04] MEDS: oxyCODONE TAB* 5 MG TAB PO PRN (18:11)
[2018-10-04] MEDS ORDERED: Ketorolac INJ* 15 MG/ML 1 ML VIAL IV PUSH ONE (20:02)
[2018-10-04] MEDS: Lidocaine Patch REMOVE* 1 NOTE MISC PATCH OFF SCH (21:17)
[2018-10-05] MEDS: Albuterol HFA INHALER* 8 gm MDI INH PRN ×2 (04:59→19:26)
[2018-10-05] MEDS: oxyCODONE TAB* 5 MG TAB PO PRN ×3 (06:05→21:15)
[2018-10-05 06:50] LABS: ABS Eosinophils 0.7 10^3/ul (0-0.6); ABS Lymphocytes 1.8 10^3/ul (1.0-4.8); ABS Monocytes 0.9 10^3/ul (0-0.8); ABS Neutrophils 4.7 10^3/ul (1.5-7.7); Eosinophil % 8.8 %; Hematocrit 37 % (42-52); Hemoglobin 12.7 g/dL (14.0-18.0); Lymphocyte % 22.1 %; Mean Corpuscular HGB Conc 34 g/dL (31-36); Mean Corpuscular Hemoglobin 31 pg (27-31); Mean Corpuscular Volume 92 fL (80-94); Mean Platelet Volume 8.3 fL (7.4-10.4); Platelet Count 165 10^3/uL (150-450); Red Blood Count 4.04 10^6 /uL (4.18-5.48); Red Cell Distribution Width 14 % (10-15); White Blood Count 8.3 10^3/uL (3.5-10.8)
[2018-10-05 07:13] LABS: BUN/Creatinine Ratio 24.4 (8-20); C Reactive Protein 11.95 mg/L (<8.01); Calcium 8.7 mg/dL (8.6-10.3); EGFR African American 220.9 (>60); EGFR Non-African American 182.6 (>60); Potassium 3.8 mmol/L (3.5-5.0)
[2018-10-05] MEDS: oxyCODONE SR TAB(*) 15 MG TAB.SR PO SCH (08:25)
[2018-10-05] MEDS: Ferrous Sulfate TAB* 325 MG PO SCH (08:26)
[2018-10-05] MEDS: Multivitamins/Minerals TAB PO SCH (08:26)
[2018-10-05] MEDS: Gabapentin CAP(*) 100 MG PO SCH ×3 (08:26→21:10)
[2018-10-05] MEDS: Pantoprazole TAB * 40 MG TAB PO SCH ×2 (08:26→21:10)
[2018-10-05] MEDS: Metoprolol Succinate XL TAB* 25 MG PO SCH (08:26)
[2018-10-05] MEDS: Atorvastatin* 10 MG TAB PO SCH (08:26)
[2018-10-05] MEDS: Lidocaine PATCH 5%* 1 PATCH TRANSDERM SCH (08:26)
[2018-10-05] MEDS: Apixaban* 5 MG TAB PO SCH ×2 (08:26→21:10)
[2018-10-05] MEDS: Escitalopram * 20 MG TABLET PO SCH (08:26)
[2018-10-05] MEDS: Furosemide TAB* 40 MG PO SCH (08:26)
--- NOTE | 2018-10-05 10:35 | PN ---
Subjective Date of Service: 10/05/18 Interval History: He states his worst problem is his sacral/buttock pain. Some pain with standing with PT and with re-positioning in bed. Family History: Unchanged from Admission Social History: Unchanged from Admission Past Medical History: Unchanged from Admission Objective Active Medications: Acetaminophen (Tylenol Tab*) 650 mg PO Q4H PRN PRN Reason: FEVER/PAIN Last Admin: 10/04/18 17:36 Dose: 650 mg Albuterol (Ventolin 2.5 Mg/3 Ml Neb.Damaris*) 2.5 mg INH Q4H PRN PRN Reason: SHORTNESS OF BREATH Last Admin: 10/02/18 19:50 Dose: 2.5 mg Albuterol (Ventolin Hfa Inhaler*) 2 puff INH Q4H PRN PRN Reason: SHORTNESS OF BREATH Last Admin: 10/05/18 04:59 Dose: 2 puff Apixaban (Eliquis*) 5 mg PO BID [facility] Last Admin: 10/05/18 08:26 Dose: 5 mg Atorvastatin Calcium (Lipitor*) 10 mg PO DAILY [facility]; Protocol Last Admin: 10/05/18 08:26 Dose: 10 mg Escitalopram Oxalate (Lexapro *) 20 mg PO DAILY [facility] Last Admin: 10/05/18 08:26 Dose: 20 mg Ferrous Sulfate (Ferrous Sulfate Tab*) 325 mg PO DAILY [facility] Last Admin: 10/05/18 08:26 Dose: 325 mg Furosemide (Lasix Tab*) 40 mg PO DAILY [facility] Last Admin: 10/05/18 08:26 Dose: 40 mg Gabapentin (Neurontin Cap(*)) 200 mg PO TID [facility] Last Admin: 10/05/18 08:26 Dose: 200 mg Ceftriaxone Sodium 1 gm/ (Sodium Chloride) 50 mls @ 200 mls/hr IVPB Q24H [facility] Last Admin: 10/04/18 15:16 Dose: 200 mls/hr Lidocaine (Lidoderm 5% Patch*) 1 patch TRANSDERM DAILY [facility] Last Admin: 10/05/18 08:26 Dose: 1 patch Methocarbamol (Robaxin Tab*) 750 mg PO TID PRN PRN Reason: Muscles spasms Metoprolol Succinate (Toprol Xl Tab*) 25 mg PO DAILY [facility] Last Admin: 10/05/18 08:26 Dose: 25 mg Multivitamins/Minerals (Theragran/Minerals Tab*) 1 tab PO DAILY [facility] Last Admin: 10/05/18 08:26 Dose: 1 tab Oxycodone HCl (Oxycontin(*)) 15 mg PO DAILY [facility] Last Admin: 10/05/18 08:25 Dose: 15 mg Oxycodone HCl (Roxycodone Tab*) 5 mg PO Q6H PRN PRN Reason: SEVERE PAIN Last Admin: 10/05/18 06:05 Dose: 5 mg Pantoprazole Sodium (Protonix Tab*) 40 mg PO BID [facility] Last Admin: 10/05/18 08:26 Dose: 40 mg Pharmacy Profile Note (Lidocaine Patch Remove*) 1 note PATCH OFF 2100 [facility] Last Admin: 10/04/18 21:17 Dose: 1 note Vital Signs - 8 hr 10/05/18 10/05/18 10/05/18 05:00 06:05 07:40 Temperature 98.4 F Pulse Rate 71 90 Respiratory 16 18 18 Rate Blood Pressure 117/55 (mmHg) O2 Sat by Pulse 99 100 Oximetry 10/05/18 10/05/18 08:25 08:26 Temperature Pulse Rate Respiratory 24 24 Rate Blood Pressure (mmHg) O2 Sat by Pulse Oximetry Oxygen Devices in Use Now: Nasal Cannula Appearance: Alert, supine in bed. In fair spirits. Looks comfortable at rest. Eyes: No Scleral Icterus Extremities: No Edema, No Clubbing, Cyanosis, - Skin: No Rash or Ulcers, No Nodules or Sclerosis, - Neurological: Alert and Oriented x 3, NL Sensation Result Diagrams: 10/05/18 06:02 10/05/18 06:02 Additional Lab and Data: Lab Results 10/01/18 10/01/18 10/01/18 Range/Units 15:35 15:35 15:47 WBC 10.4 (3.5-10.8) 10^3/uL RBC 4.02 L (4.18-5.48) 10^6 /uL Hgb 12.3 L (14.0-18.0) g/dL Hct 37 L (42-52) % MCV 92 (80-94) fL MCH 31 (27-31) pg MCHC 33 (31-36) g/dL RDW 14 (10-15) % Plt Count 166 (150-450) 10^3/uL MPV 7.7 (7.4-10.4) fL Neut % (Auto) 65.6 % Lymph % (Auto) 18.4 % [place] % (Auto) 11.0 % Eos % (Auto) 4.3 % Baso % (Auto) 0.7 % Absolute Neuts (auto) 6.8 (1.5-7.7) 10^3/ul Absolute Lymphs (auto) 1.9 (1.0-4.8) 10^3/ul Absolute Monos (auto) 1.1 H (0-0.8) 10^3/ul Absolute Eos (auto) 0.4 (0-0.6) 10^3/ul Absolute Basos (auto) 0.1 (0-0.2) 10^3/ul Absolute Nucleated RBC 0.0 10^3/ul Nucleated RBC % 0.0 Sodium 142 (135-145) mmol/L Potassium 4.3 (3.5-5.0) mmol/L Chloride 102 (101-111) mmol/L Carbon Dioxide 35 H (22-32) mmol/L Anion Gap 5 (2-11) mmol/L BUN 15 (6-24) mg/dL Creatinine 0.59 L (0.67-1.17) mg/dL Est GFR ( Amer) 161.6 (>60) Est GFR (Non-Af Amer) 133.6 (>60) BUN/Creatinine Ratio 25.4 H (8-20) Glucose 98 (70-100) mg/dL Calcium 9.0 (8.6-10.3) mg/dL Total Bilirubin 0.50 (0.2-1.0) mg/dL AST 16 (13-39) U/L ALT 9 (7-52) U/L Alkaline Phosphatase 76 (34-104) U/L Total Creatine Kinase 49 (10-223) U/L C-Reactive Protein 14.59 H (<8.01) mg/L B-Natriuretic Peptide 202 H (<=100) pg/mL Total Protein 5.9 L (6.4-8.9) g/dL Albumin 3.3 (3.2-5.2) g/dL Globulin 2.6 (2-4) g/dL Albumin/Globulin Ratio 1.3 (1-3) Microbiology and Other Data: Microbiology 10/02/18 13:55 Urine Urine Culture - Final Klebsiella Pneumoniae Assess/Plan/Problems-Billing Assessment: Mr Sethi is a 78yo M with PMH of obesity, COPD on home O2, systolic CHF, INDIGO , neurogenic bladder (self caths at home), CAD, CVA, pAFib on Apixaban, h/o left arm AVM coiling, recent admission to [facility] from 09/23 to 09/25 after sustaining a fall with c/o left hip pain; presented to ED on 10/01/18 c/o left leg pain and inability to ambulate. - Patient Problems (1) Left leg pain Current Visit: Yes Status: Acute Code(s): M79.605 - PAIN IN LEFT LEG SNOMED Code(s): 608741587 Comment: - Etiology unclear. Note has been patient in [facility] > 20 yrs. - Extensive w/u done so far with no clear source, including doppler negative for DVT. - Ortho recommended MRI knee, but not a candidate due to left arm AVM coiling. The operative report from [facility] does not state coil's cement handler and they cannot check if these are MRI compatible. D/w Dr Melchor - unclear if further imaging would be beneficial. Gabapentin started 10/03 2 PM, will increase to 200 TID. - adding robaxin for his neck pains - Continue pain management. - Patient requires a Gisel lift for transfers - will need GIO. (2) INDIGO (obstructive sleep apnea) Current Visit: Yes Status: Acute Code(s): G47.33 - OBSTRUCTIVE SLEEP APNEA ( ADULT) (PEDIATRIC) SNOMED Code(s): 17754897 Comment: - Continue BiPAP. Uses O2 3 L at home, would not exceed that here. Note chronic CO2 retention. (3) Afib Current Visit: Yes Status: Acute Code(s): I48.91 - UNSPECIFIED ATRIAL FIBRILLATION SNOMED Code(s): 48260834 Comment: - Continue Apixaban 5mg BID and Metoprolol succinate 25mg daily (4) COPD (chronic obstructive pulmonary disease) Current Visit: Yes Status: Acute Code(s): J44.9 - CHRONIC OBSTRUCTIVE PULMONARY DISEASE, UNSPECIFIED SNOMED Code(s): 85657391 Comment: - Continue bronchodilators. - not in acute exacerbation. - chronic hypoxic respiratory failure. (5) Decubitus ulcer Current Visit: Yes Status: Acute Code(s): L89.90 - PRESSURE ULCER OF UNSPECIFIED SITE, UNSPECIFIED STAGE SNOMED Code(s): 233264959 Comment: Shallow 1 cm ulcer L upper buttock, no exudate. Air mattress ordered. Nurse will asses for barrier cream (applied) vs Duoderm. Status and Disposition: medicine inpatient. referred to [facility].
--- NOTE | 2018-10-05 10:48 | PN ---
Subjective Date of Service: 10/05/18 Interval History: Addition to earlier note today. Family History: Unchanged from Admission Social History: Unchanged from Admission Past Medical History: Unchanged from Admission Objective Active Medications: Acetaminophen (Tylenol Tab*) 650 mg PO Q4H PRN PRN Reason: FEVER/PAIN Last Admin: 10/04/18 17:36 Dose: 650 mg Albuterol (Ventolin 2.5 Mg/3 Ml Neb.Damaris*) 2.5 mg INH Q4H PRN PRN Reason: SHORTNESS OF BREATH Last Admin: 10/02/18 19:50 Dose: 2.5 mg Albuterol (Ventolin Hfa Inhaler*) 2 puff INH Q4H PRN PRN Reason: SHORTNESS OF BREATH Last Admin: 10/05/18 04:59 Dose: 2 puff Apixaban (Eliquis*) 5 mg PO BID [facility] Last Admin: 10/05/18 08:26 Dose: 5 mg Atorvastatin Calcium (Lipitor*) 10 mg PO DAILY [facility]; Protocol Last Admin: 10/05/18 08:26 Dose: 10 mg Escitalopram Oxalate (Lexapro *) 20 mg PO DAILY [facility] Last Admin: 10/05/18 08:26 Dose: 20 mg Ferrous Sulfate (Ferrous Sulfate Tab*) 325 mg PO DAILY [facility] Last Admin: 10/05/18 08:26 Dose: 325 mg Furosemide (Lasix Tab*) 40 mg PO DAILY [facility] Last Admin: 10/05/18 08:26 Dose: 40 mg Gabapentin (Neurontin Cap(*)) 200 mg PO TID [facility] Last Admin: 10/05/18 08:26 Dose: 200 mg Ceftriaxone Sodium 1 gm/ (Sodium Chloride) 50 mls @ 200 mls/hr IVPB Q24H [facility] Last Admin: 10/04/18 15:16 Dose: 200 mls/hr Lidocaine (Lidoderm 5% Patch*) 1 patch TRANSDERM DAILY [facility] Last Admin: 10/05/18 08:26 Dose: 1 patch Methocarbamol (Robaxin Tab*) 750 mg PO TID PRN PRN Reason: Muscles spasms Metoprolol Succinate (Toprol Xl Tab*) 25 mg PO DAILY [facility] Last Admin: 10/05/18 08:26 Dose: 25 mg Multivitamins/Minerals (Theragran/Minerals Tab*) 1 tab PO DAILY [facility] Last Admin: 10/05/18 08:26 Dose: 1 tab Oxycodone HCl (Oxycontin(*)) 15 mg PO DAILY [facility] Last Admin: 10/05/18 08:25 Dose: 15 mg Oxycodone HCl (Roxycodone Tab*) 5 mg PO Q6H PRN PRN Reason: SEVERE PAIN Last Admin: 10/05/18 06:05 Dose: 5 mg Pantoprazole Sodium (Protonix Tab*) 40 mg PO BID [facility] Last Admin: 10/05/18 08:26 Dose: 40 mg Pharmacy Profile Note (Lidocaine Patch Remove*) 1 note PATCH OFF 2100 [facility] Last Admin: 10/04/18 21:17 Dose: 1 note Vital Signs - 8 hr 10/05/18 10/05/18 10/05/18 05:00 06:05 07:40 Temperature 98.4 F Pulse Rate 71 90 Respiratory 16 18 18 Rate Blood Pressure 117/55 (mmHg) O2 Sat by Pulse 99 100 Oximetry 10/05/18 10/05/18 08:25 08:26 Temperature Pulse Rate Respiratory 24 24 Rate Blood Pressure (mmHg) O2 Sat by Pulse Oximetry Oxygen Devices in Use Now: Nasal Cannula Result Diagrams: 10/05/18 06:02 10/05/18 06:02 Additional Lab and Data: Lab Results 10/01/18 10/01/18 10/01/18 Range/Units 15:35 15:35 15:47 WBC 10.4 (3.5-10.8) 10^3/uL RBC 4.02 L (4.18-5.48) 10^6 /uL Hgb 12.3 L (14.0-18.0) g/dL Hct 37 L (42-52) % MCV 92 (80-94) fL MCH 31 (27-31) pg MCHC 33 (31-36) g/dL RDW 14 (10-15) % Plt Count 166 (150-450) 10^3/uL MPV 7.7 (7.4-10.4) fL Neut % (Auto) 65.6 % Lymph % (Auto) 18.4 % [place] % (Auto) 11.0 % Eos % (Auto) 4.3 % Baso % (Auto) 0.7 % Absolute Neuts (auto) 6.8 (1.5-7.7) 10^3/ul Absolute Lymphs (auto) 1.9 (1.0-4.8) 10^3/ul Absolute Monos (auto) 1.1 H (0-0.8) 10^3/ul Absolute Eos (auto) 0.4 (0-0.6) 10^3/ul Absolute Basos (auto) 0.1 (0-0.2) 10^3/ul Absolute Nucleated RBC 0.0 10^3/ul Nucleated RBC % 0.0 Sodium 142 (135-145) mmol/L Potassium 4.3 (3.5-5.0) mmol/L Chloride 102 (101-111) mmol/L Carbon Dioxide 35 H (22-32) mmol/L Anion Gap 5 (2-11) mmol/L BUN 15 (6-24) mg/dL Creatinine 0.59 L (0.67-1.17) mg/dL Est GFR ( Amer) 161.6 (>60) Est GFR (Non-Af Amer) 133.6 (>60) BUN/Creatinine Ratio 25.4 H (8-20) Glucose 98 (70-100) mg/dL Calcium 9.0 (8.6-10.3) mg/dL Total Bilirubin 0.50 (0.2-1.0) mg/dL AST 16 (13-39) U/L ALT 9 (7-52) U/L Alkaline Phosphatase 76 (34-104) U/L Total Creatine Kinase 49 (10-223) U/L C-Reactive Protein 14.59 H (<8.01) mg/L B-Natriuretic Peptide 202 H (<=100) pg/mL Total Protein 5.9 L (6.4-8.9) g/dL Albumin 3.3 (3.2-5.2) g/dL Globulin 2.6 (2-4) g/dL Albumin/Globulin Ratio 1.3 (1-3) Microbiology and Other Data: Microbiology 10/02/18 13:55 Urine Urine Culture - Final Klebsiella Pneumoniae Assess/Plan/Problems-Billing Assessment: Mr Sethi is a 78yo M with PMH of obesity, COPD on home O2, systolic CHF, INDIGO , neurogenic bladder (self caths at home), CAD, CVA, pAFib on Apixaban, h/o left arm AVM coiling, [place] [facility] [place] after sustaining a fall with c/o left hip pain; presented to ED on 10/01/18 c/o left leg pain and inability to ambulate. - Patient Problems (1) Left leg pain Current Visit: Yes Status: Acute Code(s): M79.605 - PAIN IN LEFT LEG SNOMED Code(s): 924064590 Comment: - Etiology unclear. Note has been patient in [facility] > 20 yrs. - Extensive w/u done so far with no clear source, including doppler negative for DVT. - Ortho recommended MRI knee, but not a candidate due to left arm AVM coiling. The operative report from [facility] does not state coil's refinery operator reforming unit and they cannot check if these are MRI compatible. D/w Dr Melchor - unclear if further imaging would be beneficial. Gabapentin started 7 2 PM, will increase to 200 TID. - adding robaxin for his neck pains - Continue pain management. - Patient requires a Gisel lift for transfers - will need GIO. (2) INDIGO (obstructive sleep apnea) Current Visit: Yes Status: Acute Code(s): G47.33 - OBSTRUCTIVE SLEEP APNEA ( ADULT) (PEDIATRIC) SNOMED Code(s): 22899147 Comment: - Continue BiPAP. Uses O2 3 L at home, would not exceed that here. Note chronic CO2 retention. (3) Afib Current Visit: Yes Status: Acute Code(s): I48.91 - UNSPECIFIED ATRIAL FIBRILLATION SNOMED Code(s): 46076810 Comment: - Continue Apixaban 5mg BID and Metoprolol succinate 25mg daily (4) COPD (chronic obstructive pulmonary disease) Current Visit: Yes Status: Acute Code(s): J44.9 - CHRONIC OBSTRUCTIVE PULMONARY DISEASE, UNSPECIFIED SNOMED Code(s): 59420885 Comment: - Continue bronchodilators. - not in acute exacerbation. - chronic hypoxic respiratory failure. (5) Decubitus ulcer Current Visit: Yes Status: Acute Code(s): L89.90 - PRESSURE ULCER OF UNSPECIFIED SITE, UNSPECIFIED STAGE SNOMED Code(s): 926062728 Comment: Shallow 1 cm ulcer L upper buttock, no exudate. Air mattress ordered. Nurse will asses for barrier cream (applied) vs Duoderm. (6) UTI (urinary tract infection) Current Visit: Yes Status: Acute Comment: K. pneumoniae sens to first-gen ceph. Ceftriaxone started 10/04. Status and Disposition: medicine inpatient. referred to [facility].
[2018-10-05] MEDS: cefTRIAXone(*) 1 GM in NS 0.9% 50 ML* 50 ML IVPB SCH (15:43)
[2018-10-05] MEDS: Acetaminophen TAB* 325 MG PO PRN (19:26)
[2018-10-05] MEDS: Lidocaine Patch REMOVE* 1 NOTE MISC PATCH OFF SCH (21:13)
[2018-10-06] MEDS ORDERED: Ondansetron INJ* 2 MG/ML VIAL ONE (04:58)
[2018-10-06] MEDS: Ondansetron INJ* 2 MG/ML VIAL IV PRN (05:00)
[2018-10-06] MEDS: Lidocaine PATCH 5%* 1 PATCH TRANSDERM SCH (08:36)
[2018-10-06] MEDS: Ferrous Sulfate TAB* 325 MG PO SCH (08:37)
[2018-10-06] MEDS: Furosemide TAB* 40 MG PO SCH (08:37)
[2018-10-06] MEDS: Atorvastatin* 10 MG TAB PO SCH (08:38)
[2018-10-06] MEDS: Escitalopram * 20 MG TABLET PO SCH (08:38)
[2018-10-06] MEDS: Multivitamins/Minerals TAB PO SCH (08:38)
[2018-10-06] MEDS: oxyCODONE SR TAB(*) 15 MG TAB.SR PO SCH (08:38)
[2018-10-06] MEDS: Pantoprazole TAB * 40 MG TAB PO SCH ×2 (08:38→22:00)
[2018-10-06] MEDS: Gabapentin CAP(*) 100 MG PO SCH (08:38)
[2018-10-06] MEDS: Metoprolol Succinate XL TAB* 25 MG PO SCH (08:38)
[2018-10-06] MEDS: Apixaban* 5 MG TAB PO SCH ×2 (08:39→22:00)
--- NOTE | 2018-10-06 12:36 | PN ---
Subjective Date of Service: 10/06/18 Interval History: No new c/o. Migrating pains, oftenj appears sedated to nurse. Family History: Unchanged from Admission Social History: Unchanged from Admission Past Medical History: Unchanged from Admission Objective Active Medications: Acetaminophen (Tylenol Tab*) 650 mg PO Q4H PRN PRN Reason: FEVER/PAIN Last Admin: 10/05/18 19:26 Dose: 650 mg Albuterol (Ventolin 2.5 Mg/3 Ml Neb.Damaris*) 2.5 mg INH Q4H PRN PRN Reason: SHORTNESS OF BREATH Last Admin: 10/02/18 19:50 Dose: 2.5 mg Albuterol (Ventolin Hfa Inhaler*) 2 puff INH Q4H PRN PRN Reason: SHORTNESS OF BREATH Last Admin: 10/05/18 19:26 Dose: 2 puff Apixaban (Eliquis*) 5 mg PO BID [facility] Last Admin: 10/06/18 08:39 Dose: 5 mg Atorvastatin Calcium (Lipitor*) 10 mg PO DAILY [facility]; Protocol Last Admin: 10/06/18 08:38 Dose: 10 mg Cholecalciferol (Vitamin D Tab*) 1,000 units PO DAILY [facility] Escitalopram Oxalate (Lexapro *) 20 mg PO DAILY [facility] Last Admin: 10/06/18 08:38 Dose: 20 mg Ferrous Sulfate (Ferrous Sulfate Tab*) 325 mg PO DAILY [facility] Last Admin: 10/06/18 08:37 Dose: 325 mg Furosemide (Lasix Tab*) 40 mg PO DAILY [facility] Last Admin: 10/06/18 08:37 Dose: 40 mg Gabapentin (Neurontin Cap(*)) 100 mg PO TID [facility] Ceftriaxone Sodium 1 gm/ (Sodium Chloride) 50 mls @ 200 mls/hr IVPB Q24H [facility] Last Admin: 10/05/18 15:43 Dose: 200 mls/hr Ibuprofen (Motrin Tab*) 600 mg PO TID [facility] Lidocaine (Lidoderm 5% Patch*) 1 patch TRANSDERM DAILY [facility] Last Admin: 10/06/18 08:36 Dose: 1 patch Methocarbamol (Robaxin Tab*) 750 mg PO TID PRN PRN Reason: Muscles spasms Last Admin: 10/05/18 13:09 Dose: 750 mg Metoprolol Succinate (Toprol Xl Tab*) 25 mg PO DAILY [facility] Last Admin: 10/06/18 08:38 Dose: 25 mg Multivitamins/Minerals (Theragran/Minerals Tab*) 1 tab PO DAILY [facility] Last Admin: 10/06/18 08:38 Dose: 1 tab Ondansetron HCl (Zofran Inj*) 4 mg IV Q6H PRN PRN Reason: NAUSEA Last Admin: 10/06/18 05:00 Dose: 4 mg Oxycodone HCl (Oxycontin(*)) 15 mg PO DAILY [facility] Last Admin: 10/06/18 08:38 Dose: 15 mg Oxycodone HCl (Roxycodone Tab*) 5 mg PO Q6H PRN PRN Reason: SEVERE PAIN Last Admin: 10/05/18 21:15 Dose: 5 mg Pantoprazole Sodium (Protonix Tab*) 40 mg PO BID [facility] Last Admin: 10/06/18 08:38 Dose: 40 mg Pharmacy Profile Note (Lidocaine Patch Remove*) 1 note PATCH OFF 2100 [facility] Last Admin: 10/05/18 21:13 Dose: 1 note Vital Signs - 8 hr 10/06/18 10/06/18 10/06/18 07:13 08:00 08:38 Temperature 97.3 F Pulse Rate 78 Respiratory 18 22 24 Rate Blood Pressure 138/72 (mmHg) O2 Sat by Pulse 99 Oximetry Oxygen Devices in Use Now: BiPAP - When sleeping, High Flow Nasal Cannula Appearance: Lethargic but answers and follows commands. Partly up in bed. Looks comfortable. Eyes: No Scleral Icterus Extremities: No Edema, No Clubbing, Cyanosis, - Skin: No Rash or Ulcers, No Nodules or Sclerosis, - Neurological: NL Sensation - Lethargic but answers with one word answers and follows commands. Result Diagrams: 10/05/18 06:02 10/05/18 06:02 Additional Lab and Data: Lab Results 10/01/18 10/01/18 10/01/18 Range/Units 15:35 15:35 15:47 WBC 10.4 (3.5-10.8) 10^3/uL RBC 4.02 L (4.18-5.48) 10^6 /uL Hgb 12.3 L (14.0-18.0) g/dL Hct 37 L (42-52) % MCV 92 (80-94) fL MCH 31 (27-31) pg MCHC 33 (31-36) g/dL RDW 14 (10-15) % Plt Count 166 (150-450) 10^3/uL MPV 7.7 (7.4-10.4) fL Neut % (Auto) 65.6 % Lymph % (Auto) 18.4 % [place] % (Auto) 11.0 % Eos % (Auto) 4.3 % Baso % (Auto) 0.7 % Absolute Neuts (auto) 6.8 (1.5-7.7) 10^3/ul Absolute Lymphs (auto) 1.9 (1.0-4.8) 10^3/ul Absolute Monos (auto) 1.1 H (0-0.8) 10^3/ul Absolute Eos (auto) 0.4 (0-0.6) 10^3/ul Absolute Basos (auto) 0.1 (0-0.2) 10^3/ul Absolute Nucleated RBC 0.0 10^3/ul Nucleated RBC % 0.0 Sodium 142 (135-145) mmol/L Potassium 4.3 (3.5-5.0) mmol/L Chloride 102 (101-111) mmol/L Carbon Dioxide 35 H (22-32) mmol/L Anion Gap 5 (2-11) mmol/L BUN 15 (6-24) mg/dL Creatinine 0.59 L (0.67-1.17) mg/dL Est GFR ( Amer) 161.6 (>60) Est GFR (Non-Af Amer) 133.6 (>60) BUN/Creatinine Ratio 25.4 H (8-20) Glucose 98 (70-100) mg/dL Calcium 9.0 (8.6-10.3) mg/dL Total Bilirubin 0.50 (0.2-1.0) mg/dL AST 16 (13-39) U/L ALT 9 (7-52) U/L Alkaline Phosphatase 76 (34-104) U/L Total Creatine Kinase 49 (10-223) U/L C-Reactive Protein 14.59 H (<8.01) mg/L B-Natriuretic Peptide 202 H (<=100) pg/mL Total Protein 5.9 L (6.4-8.9) g/dL Albumin 3.3 (3.2-5.2) g/dL Globulin 2.6 (2-4) g/dL Albumin/Globulin Ratio 1.3 (1-3) Microbiology and Other Data: Microbiology 10/02/18 13:55 Urine Urine Culture - Final Klebsiella Pneumoniae Assess/Plan/Problems-Billing Assessment: Mr Sethi is a 78yo M with PMH of obesity, COPD on home O2, systolic CHF, INDIGO , neurogenic bladder (self caths at home), CAD, CVA, pAFib on Apixaban, h/o left arm AVM coiling, [place] [facility] [place]25 after sustaining a fall with c/o left hip pain; presented to ED on 10/01/18 c/o left leg pain and inability to ambulate. - Patient Problems (1) Left leg pain Current Visit: Yes Status: Acute Code(s): M79.605 - PAIN IN LEFT LEG SNOMED Code(s): 858438274 Comment: - Etiology unclear. Note has been patient in [facility] > 20 yrs. - Extensive w/u done so far with no clear source, including doppler negative for DVT. - Ortho recommended MRI knee, but not a candidate due to left arm AVM coiling. The operative report from [facility] does not state coil's folding machine setter and they cannot check if these are MRI compatible. D/w Dr Melchor - unclear if further imaging would be beneficial. Gabapentin started 10/03 2 PM, increased to 200 TID, start to taper off 10/06 as no clear benefit and patient if anything more lethargic. - adding robaxin for his neck pains--uses infrequently, would d/c if using less than once a day. - Patient requires a Gisel lift for transfers - will need GIO. Trial scheduled ibuprofen start 2 PM 10/06, would stop after 2 days if no clear benefit. (2) INDIGO (obstructive sleep apnea) Current Visit: Yes Status: Acute Code(s): G47.33 - OBSTRUCTIVE SLEEP APNEA ( ADULT) (PEDIATRIC) SNOMED Code(s): 76844080 Comment: - Continue BiPAP. Uses O2 3 L at home, would not exceed that here. Note chronic CO2 retention. (3) Afib Current Visit: Yes Status: Acute Code(s): I48.91 - UNSPECIFIED ATRIAL FIBRILLATION SNOMED Code(s): 62733664 Comment: - Continue Apixaban 5mg BID and Metoprolol succinate 25mg daily (4) COPD (chronic obstructive pulmonary disease) Current Visit: Yes Status: Acute Code(s): J44.9 - CHRONIC OBSTRUCTIVE PULMONARY DISEASE, UNSPECIFIED SNOMED Code(s): 58767208 Comment: - Continue bronchodilators. - not in acute exacerbation. - chronic hypoxic respiratory failure. CO2 retention could be contributing to his lethargy. Nursing staff asked to titrate O2 flow rate to keep O2 sat 88-92% starting 10/06. (5) Decubitus ulcer Current Visit: Yes Status: Acute Code(s): L89.90 - PRESSURE ULCER OF UNSPECIFIED SITE, UNSPECIFIED STAGE SNOMED Code(s): 603532537 Comment: Shallow 1 cm ulcer L upper buttock, no exudate. Air mattress ordered. Nurse will asses for barrier cream (applied) vs Duoderm. (6) UTI (urinary tract infection) Current Visit: Yes Status: Acute Comment: K. pneumoniae sens to first-gen ceph. Ceftriaxone started 10/04. Status and Disposition: medicine inpatient. referred to [facility].
[2018-10-06] MEDS ORDERED: Gabapentin CAP(*) 100 MG PO SCH (14:00)
[2018-10-06] MEDS: Cholecalciferol TAB* 1000 UNITS PO SCH (14:49)
[2018-10-06] MEDS: Ibuprofen TAB* 600 MG PO SCH ×2 (14:49→22:00)
[2018-10-06] MEDS ORDERED: D5W 1/2 NS KCl 20 Meq 1000 ML* 1,000 ML IV SCH (15:00)
[2018-10-06] MEDS: Albuterol HFA INHALER* 8 gm MDI INH PRN (15:05)
[2018-10-06] MEDS: cefTRIAXone(*) 1 GM in NS 0.9% 50 ML* 50 ML IVPB SCH (15:06)
[2018-10-06] MEDS ORDERED: acetaZOLAMIDE TAB* 250 MG PO SCH (15:30)
[2018-10-06] MEDS ORDERED: Furosemide IV* 10 MG/ML VIAL (40 MG) IV ONE (17:01)
--- NOTE | 2018-10-06 18:06 | HP ---
History of Present Illness - History of Present Illness Reason for Visit: ACUTE HYPERCAPNIC RESPIRATORY FAILURE History of Present Illness: 78 M with hx/o chronic pain, INDIGO on nocturnal bipap, AF on eliquis, COPD, CAD, CVA, decubitus ulcers transferred to the ICU for PCO2 100 and AMS. Patient admitted on 10/01 with weakness and LLE etiology unknown with the workup during this hospital course. He was getting pain meds and muscle relaxant which likely culminated his respiratory failure. 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 Negative: Fever, Chills Eyes: Negative: Pain ENT: Negative: Ear Pain Respiratory: Positive: Shortness of Breath, SOB with Excertion. Negative: Cough , Hemoptysis Cardiovascular: Negative: Chest Pain, Palpitations Gastrointestinal: Negative: Nausea, Vomiting, Abdominal Pain Genitourinary: Negative: Dysuria, Frequency, Incontinence Musculoskeletal: Positive: Neck Pain, Shoulder Pain, Back Pain, Leg Pain Neurological: Positive: Weakness - Medications/Allergies Allergies/Adverse Reactions: Allergies Allergy/AdvReac Type Severity Reaction Status Date / Time Iodinated Contrast- Oral and Allergy Intermediate Rash Verified 10/01/18 13:30 IV Dye Medications: Current Medications Acetaminophen (Tylenol Tab*) 650 mg PO Q4H PRN PRN Reason: FEVER/PAIN Last Admin: 10/05/18 19:26 Dose: 650 mg Acetazolamide (Diamox Tab*) 250 mg PO TID [facility] Last Admin: 10/06/18 16:26 Dose: 250 mg Albuterol (Ventolin 2.5 Mg/3 Ml Neb.Damaris*) 2.5 mg INH Q4H PRN PRN Reason: SHORTNESS OF BREATH Last Admin: 10/02/18 19:50 Dose: 2.5 mg Albuterol (Ventolin Hfa Inhaler*) 2 puff INH Q4H PRN PRN Reason: SHORTNESS OF BREATH Last Admin: 10/06/18 15:05 Dose: 2 puff Apixaban (Eliquis*) 5 mg PO BID [facility] Last Admin: 10/06/18 08:39 Dose: 5 mg Atorvastatin Calcium (Lipitor*) 10 mg PO DAILY [facility]; Protocol Last Admin: 10/06/18 08:38 Dose: 10 mg Cholecalciferol (Vitamin D Tab*) 1,000 units PO DAILY [facility] Last Admin: 10/06/18 14:49 Dose: 1,000 units Escitalopram Oxalate (Lexapro *) 20 mg PO DAILY [facility] Last Admin: 10/06/18 08:38 Dose: 20 mg Ferrous Sulfate (Ferrous Sulfate Tab*) 325 mg PO DAILY [facility] Last Admin: 10/06/18 08:37 Dose: 325 mg Furosemide (Lasix Tab*) 40 mg PO DAILY [facility] Last Admin: 10/06/18 08:37 Dose: 40 mg Ceftriaxone Sodium 1 gm/ (Sodium Chloride) 50 mls @ 200 mls/hr IVPB Q24H [facility] Last Admin: 10/06/18 15:06 Dose: 200 mls/hr Ibuprofen (Motrin Tab*) 600 mg PO TID [facility] Last Admin: 10/06/18 14:49 Dose: 600 mg Lidocaine (Lidoderm 5% Patch*) 1 patch TRANSDERM DAILY [facility] Last Admin: 10/06/18 08:36 Dose: 1 patch Methocarbamol (Robaxin Tab*) 750 mg PO TID PRN PRN Reason: Muscles spasms Last Admin: 10/05/18 13:09 Dose: 750 mg Metoprolol Succinate (Toprol Xl Tab*) 25 mg PO DAILY [facility] Last Admin: 10/06/18 08:38 Dose: 25 mg Multivitamins/Minerals (Theragran/Minerals Tab*) 1 tab PO DAILY [facility] Last Admin: 10/06/18 08:38 Dose: 1 tab Ondansetron HCl (Zofran Inj*) 4 mg IV Q6H PRN PRN Reason: NAUSEA Last Admin: 10/06/18 05:00 Dose: 4 mg Oxycodone HCl (Roxycodone Tab*) 5 mg PO Q6H PRN PRN Reason: SEVERE PAIN Last Admin: 10/05/18 21:15 Dose: 5 mg Pantoprazole Sodium (Protonix Tab*) 40 mg PO BID [facility] Last Admin: 10/06/18 08:38 Dose: 40 mg Pharmacy Profile Note (Lidocaine Patch Remove*) 1 note PATCH OFF 2100 [facility] Last Admin: 10/05/18 21:13 Dose: 1 note Exam - Exam Vital Signs: Vital Signs (72 hours) 10/03/18 10/03/18 10/03/18 19:14 20:00 20:39 Temperature 98.0 F Pulse Rate 82 Respiratory 20 20 20 Rate Blood Pressure 123/68 (mmHg) O2 Sat by Pulse 100 Oximetry 10/03/18 10/04/18 10/04/18 23:29 03:36 07:15 Temperature 97.4 F 97.9 F 97.7 F Pulse Rate 86 78 97 Respiratory 18 16 24 Rate Blood Pressure 112/60 134/74 191/90 (mmHg) O2 Sat by Pulse 96 94 100 Oximetry 10/04/18 10/04/18 10/04/18 07:40 08:30 08:31 Temperature Pulse Rate Respiratory 24 24 Rate Blood Pressure 142/80 (mmHg) O2 Sat by Pulse Oximetry 10/04/18 10/04/18 10/04/18 11:22 13:58 15:17 Temperature 96.8 F 98 F Pulse Rate 87 84 Respiratory 26 25 22 Rate Blood Pressure 132/70 137/66 (mmHg) O2 Sat by Pulse 99 99 Oximetry 10/04/18 10/04/18 10/04/18 18:11 19:29 19:42 Temperature 97.9 F Pulse Rate 74 91 Respiratory 18 16 24 Rate Blood Pressure 119/68 (mmHg) O2 Sat by Pulse 989 100 Oximetry 10/04/18 10/04/18 10/04/18 20:00 20:15 21:10 Temperature Pulse Rate Respiratory 22 22 22 Rate Blood Pressure (mmHg) O2 Sat by Pulse Oximetry 10/04/18 10/04/18 10/05/18 22:16 23:00 02:17 Temperature 98.5 F 97.2 F Pulse Rate 89 79 Respiratory 18 18 24 Rate Blood Pressure 143/72 153/91 (mmHg) O2 Sat by Pulse 100 97 Oximetry 10/05/18 10/05/18 10/05/18 05:00 06:05 07:40 Temperature 98.4 F Pulse Rate 71 90 Respiratory 16 18 18 Rate Blood Pressure 117/55 (mmHg) O2 Sat by Pulse 99 100 Oximetry 10/05/18 10/05/18 10/05/18 08:00 08:05 08:25 Temperature Pulse Rate Respiratory 16 16 24 Rate Blood Pressure (mmHg) O2 Sat by Pulse Oximetry 10/05/18 10/05/18 10/05/18 08:26 10:26 11:00 Temperature 97.1 F Pulse Rate 86 Respiratory 24 16 19 Rate Blood Pressure 145/67 (mmHg) O2 Sat by Pulse 100 Oximetry 10/05/18 10/05/18 10/05/18 13:07 13:09 15:00 Temperature 98.0 F Pulse Rate 87 Respiratory 18 18 20 Rate Blood Pressure 111/61 (mmHg) O2 Sat by Pulse 100 Oximetry 10/05/18 10/05/18 10/05/18 15:02 15:07 15:09 Temperature 98.0 F Pulse Rate 87 Respiratory 20 16 16 Rate Blood Pressure 111/61 (mmHg) O2 Sat by Pulse 100 Oximetry 10/05/18 10/05/18 10/05/18 19:36 19:44 21:10 Temperature 97.8 F Pulse Rate 72 Respiratory 26 24 24 Rate Blood Pressure 116/67 (mmHg) O2 Sat by Pulse 100 Oximetry 10/05/18 10/05/18 10/05/18 21:15 22:26 23:15 Temperature 98.3 F Pulse Rate 84 Respiratory 24 24 24 Rate Blood Pressure 128/67 (mmHg) O2 Sat by Pulse 100 Oximetry 10/06/18 10/06/18 10/06/18 02:00 07:13 08:00 Temperature 97.6 F 97.3 F Pulse Rate 89 78 Respiratory 20 18 22 Rate Blood Pressure 128/61 138/72 (mmHg) O2 Sat by Pulse 91 99 Oximetry 10/06/18 10/06/18 10/06/18 08:38 11:33 14:54 Temperature 97.7 F Pulse Rate 97 Respiratory 24 18 20 Rate Blood Pressure 138/63 (mmHg) O2 Sat by Pulse 100 Oximetry 10/06/18 10/06/18 15:30 15:37 Temperature 97.3 F Pulse Rate 92 Respiratory 20 Rate Blood Pressure 130/61 (mmHg) O2 Sat by Pulse 97 97 Oximetry Assessment/Plan - Assessment/Plan Assessment: 78 M requiring pain meds for control of acute on chronic pain especially involving his LLE transferred to ICU with acute hypercapnea Plan: # AMS due to hypercapnea # Acute hypercapnic respiratory failure PCO2 100 # HFrEF # INDIGO # LLE pain # K pna uti - discontinue long acting pain meds and muscle relaxants - bipap - Follow up ABG - NPO till mental status improves - resume other meds: eliquis, lexapro - CTX for 10 days (started 10/04) - LLE pain: Extensive w/u done so far with no clear source, including doppler negative for DVT. Ortho recommended MRI knee, but not a candidate due to left arm AVM coiling. The operative report from [facility] does not state coil's motor brakeman and they cannot check if these are MRI compatible. D/w Dr Melchor - unclear if further imaging would be beneficial. Prognosis: guarded code status: full Meets criteria for ICU for BIPAP use acutely CC time 45 minutes
[2018-10-06] MEDS: Lidocaine Patch REMOVE* 1 NOTE MISC PATCH OFF SCH (22:00)
[2018-10-06] MEDS: Methocarbamol TAB* 500 MG PO SCH (22:00)
[2018-10-07] MEDS: oxyCODONE TAB* 5 MG TAB PO PRN ×3 (03:38→20:26)
[2018-10-07 04:59] LABS: ABS Basophils 0.1 10^3/ul (0-0.2); ABS Eosinophils 0.5 10^3/ul (0-0.6); ABS Neutrophils 6.5 10^3/ul (1.5-7.7); Eosinophil % 5.3 %; Hematocrit 38 % (42-52); Hemoglobin 12.4 g/dL (14.0-18.0); Lymphocyte % 20.1 %; Mean Corpuscular HGB Conc 33 g/dL (31-36); Mean Corpuscular Hemoglobin 30 pg (27-31); Mean Corpuscular Volume 92 fL (80-94); Mean Platelet Volume 7.9 fL (7.4-10.4); Nucleated Red Blood Cells % 0.1; Platelet Count 166 10^3/uL (150-450); Red Cell Distribution Width 14 % (10-15); White Blood Count 10.2 10^3/uL (3.5-10.8)
[2018-10-07 05:02] LABS: Calcium 8.9 mg/dL (8.6-10.3); EGFR African American 149.8 (>60); EGFR Non-African American 123.8 (>60); Potassium 3.5 mmol/L (3.5-5.0)
[2018-10-07] MEDS: Albuterol HFA INHALER* 8 gm MDI INH PRN (07:09)
[2018-10-07] MEDS: Multivitamins/Minerals TAB PO SCH (08:10)
[2018-10-07] MEDS: Furosemide TAB* 40 MG PO SCH (08:10)
[2018-10-07] MEDS: Escitalopram * 20 MG TABLET PO SCH (08:10)
[2018-10-07] MEDS: Apixaban* 5 MG TAB PO SCH ×2 (08:10→19:36)
[2018-10-07] MEDS: Atorvastatin* 10 MG TAB PO SCH (08:10)
[2018-10-07] MEDS: Ferrous Sulfate TAB* 325 MG PO SCH (08:10)
[2018-10-07] MEDS: Methocarbamol TAB* 500 MG PO SCH ×2 (08:11→19:38)
[2018-10-07] MEDS: Pantoprazole TAB * 40 MG TAB PO SCH ×2 (08:11→19:36)
[2018-10-07] MEDS: Cholecalciferol TAB* 1000 UNITS PO SCH (08:11)
[2018-10-07] MEDS: Ibuprofen TAB* 600 MG PO SCH ×3 (08:12→19:36)
[2018-10-07] MEDS: Metoprolol Succinate XL TAB* 25 MG PO SCH (08:12)
[2018-10-07] MEDS: Lidocaine PATCH 5%* 1 PATCH TRANSDERM SCH (08:12)
--- NOTE | 2018-10-07 10:22 | PN ---
Progress Note - Progress Note Date of Service: 10/07/18 SOAP: Subjective: [] I saw Familia JOSEPH in chair today. He is able to communicate well with me today, much less sedated than he has been in the past. At rest, his left leg is entirely comfortable and pain free. He is also able to move the hip, knee and ankle without pain while seated, but to attempt to bear weight is very painful at the knee. Objective: []General: NAD, nontoxic appearing LLE: Skin envelope intact without rashes, lesions or erythema. Mildly tender to palpation over the lateral hip, lateral tibial plateau and proximal calf though tenderness is inconsistent and not reproducible when patient is distracted. Active flexion and extension of the hip 0-90 nonpainful, negative log roll, no pain with heel strike. Active flexion and extension 5-90 of the knee nonpainful. Foot and ankle entirely nontender, no pain with ankle and MTP ROM. Bilateral lower leg trace edema and tenderness with palpation, this is symmetric but again inconsistent and not reproducible with repeat exam. Assessment: [] LLE pain: inconsistent exam with unclear etiology, unable to obtain MRI of knee due to L arm AVM coil. No evidence of septic joint as patient has good nonpainful ROM, no elevation of WBC and afebrile. No evidence of compartment syndrome all compartments throughout LLE are compressible. DVT ruled out by dopplar. Possible Lumbar spine pathology. Plan: [] Okay to attempt to mobilize WBAT with assist Will follow weekly while in house, if new symptoms or continued concerns please contact orthopedics in the interim. Patient discussed with Dr Melchor today Vital Signs Temp 97.6 F 10/07/18 08:15 Pulse 94 10/07/18 10:00 Resp 21 10/07/18 10:00 BP 113/46 10/07/18 10:00 Pulse Ox 98 10/07/18 10:00 Intake & Output 10/06/18 10/07/18 10/07/18 18:59 06:59 18:59 Intake Total 438 50 120 Output Total 640 910 225 Balance -202 -860 -105 Weight 258 lb 6.108 oz Intake: IVPB 50 ceftriaoxone' 50 Oral 438 120 Output: Osorio 640 910 225 Other: # Bowel Movements 0 Laboratory Last Values WBC 10.2 10^3/uL (3.5-10.8) 10/07/18 04:32 RBC 4.10 10^6 /uL (4.18-5.48) L 10/07/18 04:32 Hgb 12.4 g/dL (14.0-18.0) L 10/07/18 04:32 Hct 38 % (42-52) L 10/07/18 04:32 MCV 92 fL (80-94) 10/07/18 04:32 MCH 30 pg (27-31) 10/07/18 04:32 MCHC 33 g/dL (31-36) 10/07/18 04:32 RDW 14 % (10-15) 10/07/18 04:32 Plt Count 166 10^3/uL (150-450) 10/07/18 04:32 MPV 7.9 fL (7.4-10.4) 10/07/18 04:32 Neut % (Auto) 64.1 % 10/07/18 04:32 Lymph % (Auto) 20.1 % 10/07/18 04:32 [place] % (Auto) 10.0 % 10/07/18 04:32 Eos % (Auto) 5.3 % 10/07/18 04:32 Baso % (Auto) 0.5 % 10/07/18 04:32 Absolute Neuts (auto) 6.5 10^3/ul (1.5-7.7) 10/07/18 04:32 Absolute Lymphs (auto) 2.0 10^3/ul (1.0-4.8) 10/07/18 04:32 Absolute Monos (auto) 1.0 10^3/ul (0-0.8) H 10/07/18 04:32 Absolute Eos (auto) 0.5 10^3/ul (0-0.6) 10/07/18 04:32 Absolute Basos (auto) 0.1 10^3/ul (0-0.2) 10/07/18 04:32 Absolute Nucleated RBC 0.0 10^3/ul 10/07/18 04:32 Nucleated RBC % 0.1 10/07/18 04:32 Patient Temperature Not Reportable 10/07/18 06:04 ABG pH 7.43 (7.35-7.45) 10/07/18 06:04 ABG pH (Temp Correct) Not Reportable 10/07/18 06:04 ABG pCO2 65 mmHg (35-45) H 10/07/18 06:04 ABG pCO2 (Temp Corrct Not Reportable 10/07/18 06:04 ABG pO2 76 mmHg (80-100) L 10/07/18 06:04 ABG pO2 (Temp Correct Not Reportable 10/07/18 06:04 ABG HCO3 37.0 mmol/L (19-31) H 10/07/18 06:04 ABG O2 Saturation 98.8 % (94.0-98.0) H 10/07/18 06:04 ABG Base Excess 15.5 mmol/L (-2.0-2.0) H 10/07/18 06:04 Respiration Rate 12 10/07/18 06:04 O2 Delivery Device bipap 10/07/18 06:04 Ventilator Type Not Reportable 10/07/18 06:04 Vent Mode Not Reportable 10/07/18 06:04 FiO2 30 10/07/18 06:04 Inspiratory Time Not Reportable 10/07/18 06:04 PEEP Not Reportable 10/07/18 06:04 Pressure Support Not Reportable 10/07/18 06:04 Pressure Control Not Reportable 10/07/18 06:04 EPAP 8 10/07/18 06:04 IPAP 14 10/07/18 06:04 BiPAP s/t 10/07/18 06:04 Sodium 140 mmol/L (135-145) 10/07/18 04:32 Potassium 3.5 mmol/L (3.5-5.0) 10/07/18 04:32 Chloride 97 mmol/L (101-111) L 10/07/18 04:32 Carbon Dioxide 41 mmol/L (22-32) H* 10/07/18 04:32 Anion Gap 2 mmol/L (2-11) 10/07/18 04:32 BUN 12 mg/dL (6-24) 10/07/18 04:32 Creatinine 0.63 mg/dL (0.67-1.17) L 10/07/18 04:32 Est GFR ( Amer) 149.8 (>60) 10/07/18 04:32 Est GFR (Non-Af Amer) 123.8 (>60) 10/07/18 04:32 BUN/Creatinine Ratio 19.0 (8-20) 10/07/18 04:32 Glucose 90 mg/dL (70-100) 10/07/18 04:32 POC Glucose (mg/dL) 141 mg/dL (70-100) H 10/02/18 13:37 Calcium 8.9 mg/dL (8.6-10.3) 10/07/18 04:32 Total Bilirubin 0.50 mg/dL (0.2-1.0) 10/01/18 15:35 AST 16 U/L (13-39) 10/01/18 15:35 ALT 9 U/L (7-52) 10/01/18 15:35 Alkaline Phosphatase 76 U/L (34-104) 10/01/18 15:35 Total Creatine Kinase 49 U/L (10-223) 10/01/18 15:35 C-Reactive Protein 11.95 mg/L (<8.01) H 10/05/18 06:02 B-Natriuretic Peptide 202 pg/mL (<=100) H 10/01/18 15:47 Total Protein 5.9 g/dL (6.4-8.9) L 10/01/18 15:35 Albumin 3.3 g/dL (3.2-5.2) 10/01/18 15:35 Globulin 2.6 g/dL (2-4) 10/01/18 15:35 Albumin/Globulin Ratio 1.3 (1-3) 10/01/18 15:35 25-OH Vitamin D Total 22.7 ng/mL (20-50) 10/06/18 05:42 Urine Color Yellow 10/02/18 13:55 Urine Appearance Cloudy 10/02/18 13:55 Urine pH 6.0 (5-9) 10/02/18 13:55 Ur Specific [place] 1.008 (1.010-1.030) L 10/02/18 13:55 Urine Protein Negative (Negative) 10/02/18 13:55 Urine Ketones Negative (Negative) 10/02/18 13:55 Urine Blood Negative (Negative) 10/02/18 13:55 Urine Nitrate Negative (Negative) 10/02/18 13:55 Urine Bilirubin Negative (Negative) 10/02/18 13:55 Urine Urobilinogen Negative (Negative) 10/02/18 13:55 Ur Leukocyte Esterase Trace (Negative) A 10/02/18 13:55 Urine WBC (Auto) 1+(6-10/hpf) (Absent) A 10/02/18 13:55 Urine RBC (Auto) Trace(0-2/hpf) (Absent) 10/02/18 13:55 Urine Bacteria Absent (Absent) 10/02/18 13:55 Urine Glucose Negative (Negative) 10/02/18 13:55
--- NOTE | 2018-10-07 10:49 | PN ---
Date of Service: 10/07/18 - 7 Critical Care Services: 78 yo M with PMH including Afib, systolic CHF, INDIGO, recurrent faills, CAD, COPD < seizure, chronic depression, chronic pain and neurogenic bladder presented to the ED on 10/01 with LLE pain. Seen in the ED on 09/23 after a fall. Since that time he has had worsening pain in the LLE, 10/10 below the knee and 5/10 above the knee. At time of presentation pt noted to be somnolent and unable to keep eyes open during exam. Per he has been on oxycontin for intractable pain. Physical exam notable for somnolence, general ill-appearance and distress, and worsened pain with movement to LLE. VSS. Labs unremarkable. XRs and CT of LLE with osteopenia, no visible fracture. Admitted to the medical service for further care; orthopedics consulted. . 10/02: Remains somnolent. Narcotic medications on hold. Unable to obtain MRI secondary to AVM coiling. 10/03: Started on Gabapentin. Continues to report pain in LLE 10/04: Urine culture with Klebsiella. Gabapentin dose increased. Robaxin added for chronic neck pain. Referred to [facility]. 10/05: Reports worst pain now sacral & buttock region. Some pain in LLE while standing with PT and on repositioning. 10/06: No new complaints. Reporting migratory pain. Per nursing often appears sedated. Started on trial of ibuprofen. No improvement with Gabapentin, tapered off. Decubitus ulcer to L upper buttock noted; air mattress and barrier cream ordered. In evening became overly sedated and developed acute respiratory failure with CO2 narcosis likely related to pain medication. Transferred to ICU for BiPAP needs 10/07: Weaned off BiPAP. Alert and oriented. Vital Signs: Temp Pulse Resp BP SpO2 FiO2 97.6 F 94 21 113/46 98 30 10/07/18 08:15 10/07/18 10:00 10/07/18 10:00 10/07/18 10:00 10/07/18 10:10/07 06:05 Physical Exam: Gen: sitting in chair, appears comfortable HEENT: NC in place Lungs: nonlabored Cardiac: RRR Abdomen: nondistended Extremities: warm, dry Neuro: alert, oriented. Depressed affect. Fluid Balance (Past 24 Hours): I= O= Net Intake & Output 10/05/18 10/06/18 10/07/18 10/08/18 06:59 06:59 06:59 06:59 Intake Total 960 900 488 120 Output Total 2075 1675 1550 225 Balance -1115 -775 -1062 -105 Weight 270 lb 11.2 oz 270 lb 8 oz 258 lb 6.108 oz Intake: IV Fluids 50 ceftriaoxone' 50 IVPB 50 ceftriaoxone' 50 Oral 960 850 438 120 Output: Urine 700 Osorio 5 975 1550 225 Other: Estimated Void Small Date of Last Bowel unknown Movement # Bowel Movements 0 1 0 Estimated Stool Amount Medium # Voids 1 Labs: Laboratory Results - last 24 hr 10/06/18 10/06/18 10/07/18 15:00 20:26 04:32 WBC 10.2 RBC 4.10 L Hgb 12.4 L Hct 38 L MCV 92 MCH 30 MCHC 33 RDW 14 Plt Count 166 MPV 7.9 Neut % (Auto) 64.1 Lymph % (Auto) 20.1 [place] % (Auto) 10.0 Eos % (Auto) 5.3 Baso % (Auto) 0.5 Absolute Neuts (auto) 6.5 Absolute Lymphs (auto) 2.0 Absolute Monos (auto) 1.0 H Absolute Eos (auto) 0.5 Absolute Basos (auto) 0.1 Absolute Nucleated RBC 0.0 Nucleated RBC % 0.1 Patient Temperature Not Reportable Not Reportable ABG pH 7.29 L 7.41 ABG pH (Temp Correct) Not Reportable Not Reportable ABG pCO2 100 H* 81 H* ABG pCO2 (Temp Corrct Not Reportable Not Reportable ABG pO2 91 81 ABG pO2 (Temp Correct Not Reportable Not Reportable ABG HCO3 37.7 H 41.8 H* ABG O2 Saturation 98.4 H 98.7 H ABG Base Excess 16.4 H 21.7 H Respiration Rate Not Reportable 12 O2 Delivery Device nasal cannula 3lpm bipap Ventilator Type Not Reportable Not Reportable Vent Mode Not Reportable Not Reportable FiO2 Not Reportable 30 Inspiratory Time Not Reportable Not Reportable PEEP Not Reportable Not Reportable Pressure Support Not Reportable Not Reportable Pressure Control Not Reportable Not Reportable EPAP Not Reportable 8 IPAP Not Reportable 14 BiPAP Not Reportable s/t Sodium Potassium Chloride Carbon Dioxide Anion Gap BUN Creatinine Est GFR ( Amer) Est GFR (Non-Af Amer) BUN/Creatinine Ratio Glucose Calcium 10/07/18 10/07/18 04:32 06:04 WBC RBC Hgb Hct MCV MCH MCHC RDW Plt Count MPV Neut % (Auto) Lymph % (Auto) [place] % (Auto) Eos % (Auto) Baso % (Auto) Absolute Neuts (auto) Absolute Lymphs (auto) Absolute Monos (auto) Absolute Eos (auto) Absolute Basos (auto) Absolute Nucleated RBC Nucleated RBC % Patient Temperature Not Reportable ABG pH 7.43 ABG pH (Temp Correct) Not Reportable ABG pCO2 65 H ABG pCO2 (Temp Corrct Not Reportable ABG pO2 76 L ABG pO2 (Temp Correct Not Reportable ABG HCO3 37.0 H ABG O2 Saturation 98.8 H ABG Base Excess 15.5 H Respiration Rate 12 O2 Delivery Device bipap Ventilator Type Not Reportable Vent Mode Not Reportable FiO2 30 Inspiratory Time Not Reportable PEEP Not Reportable Pressure Support Not Reportable Pressure Control Not Reportable EPAP 8 IPAP 14 BiPAP s/t Sodium 140 Potassium 3.5 Chloride 97 L Carbon Dioxide 41 H* Anion Gap 2 BUN 12 Creatinine 0.63 L Est GFR ( Amer) 149.8 Est GFR (Non-Af Amer) 123.8 BUN/Creatinine Ratio 19.0 Glucose 90 Calcium 8.9 Studies: 10/06 CXR - cardiogenic pulmonary edema with bibasilar pleural effusions / CT lumbar spine - diffuse degenerative disc and facet disease. No acute fracture or destructive lesion. Fecal impaction with diffuse rectal wall thickening 7/2 US L Leg - no evidence of DVT. Posterior tibial vein also patent. Peroneal vein not visualized. Greater saphenous vein not visualized. 7/2 CT L leg - osteopenia, osteoarthritis, no visible fracture. Extensive soft tissue swelling most pronounced along distal lower extremity. 7/ XR L femur - osteopenia, no visible fracture 7/2 XR L knee - osteopenia, osteoarthritis, no visible fracture 7/2 XR L tib/fib - osteopenia, no visible fracture /2 XR L foot - osteopenia, osteoarthritis, no visible fracture. soft tissue swelling Nutrition: heart healthy Impression: 78 yo M with chronic pain, chronic depression, CAD, CHF, INDIGO, COPD presented to the ED on 10/01 with LLE pain after a fall a week prior. Workup negative for fracture. Transferred to ICU 10/06 with hypercapneic respiratory failure and CO2 narcosis secondary to narcotics. Plan: Cardiovascular: (1) Afib; (2) CAD; (3) chronic systolic CHF -- HR 76-100 -- SBP 84-138 -- Telemetry -- Eliquis -- atorvastatin -- Metoprolol -- Lasix Home meds: Metoprolol, Eliquis, Rosuvastatin, Lasix Pulmonary: (1) Acute on chronic hypercarbic respiratory failure due to narcotics, resolved; (2) CO2 narcosis, resolved; (3) Pulmonary edema; (4) INDIGO on CPAP; (5) COPD -- RR 12-32 -- sats 91-100 on 3L NC -- CXR, 10/06: cardiogenic pulmonary edema with bilateral pleural effusions -- ABG: pH 7.43; pCO2 65; pO2 76; HCO3 37; BE 15.5; %O2 Sat 98.8. on BiPAP -- PRN Albuterol Home meds: albuterol, Umeclidium [place] Gastrointestinal: (1) Constipation; (2) Diffuse rectal wall thickening; (3) hx of hyperammonemia;(4) hx of esophageal stricture -- CT lumbar spine, 10/01: Diffuse rectal wall thickening ~ 9mm, with constipation -- check ammonia with AM labs -- diet: Cardiac -- bowel regimen: Miralax -- ulcer prophylaxis: Protonix -- PRN Zofran -- GI team consulted for rectal wall thickening. Per pt he has not followed up with a GI eval or colonoscopy any time recently Home meds: Omeprazole Endocrine: No acute issues -- monitor BGs Home meds: None Renal: (1) Klebsiella UTI; (2) Neurogenic bladder; (3) BPH; (4) hx of hematuria -- UOP: 65 ml/hr -- Cr 0.63 from 0.45 -- Lytes Na 140 from 143 K 3.5 Ca 8.9 -- Lasix -- resume home avodart Home meds: Avodart, Lasix Infectious disease: (1) Klebsiella UTI -- Tmax 97.7 -- WBC 10.2 from 8.3 -- Micro 7/3 Urine Klebsiella -- ABX Rocephin x 7 days Home meds: None Neurologic: (1) Acute left lower extremity pain; (2) Left hip pain; (3) Neck pain; (4) Chronic pain; (5) Chronic narcotic use; (6) Acute on Chronic depression; (7) hx of seizure; (8) hx of dizziness; (9) Frequent falls -- PRN Tylenol -- ARTI Ibuprofen -- Lidoderm patch -- Robaxin for neck pain -- PRN Oxycodone -- Lexapro -- PT OT -- PT has followed with [facility] for > 20 years; per patient he was discharged from their clinic -- consult pain service -- consult psychiatry. per patient his depression is not well controlled and he "does know if he can make it through the night" Home meds: Lidoderm patch, Lexapro, Roxicodone Hematological: (1) Chronic anemia -- Hgb 12.4 from 12.7 -- Plt 166 from 165 -- DVT prophylaxis: Eliquis -- ferrous sulfate Home meds: Ferrous sulfate, Eliquis Metabolic: No acute issues Home meds: None Other: (1) L buttock decubitus ulcer -- local wound care -- off loading -- cholecalciferol -- MVI Home meds: MVI Deep vein thrombosis prophylaxis: Eliquis Dietary: Protonix Condition: serous Prognosis: poor Code status: full Disposition: transfer to floor Family updated at bedside regarding interval events and plan of care Cumulative time spent in the care of this patient (excluding any procedure time) : at least 40 minutes. Patient care included clinical interview (with patient and/or family), bedside exam of the patient, review of labs, x-rays, and other ancillary data, coordination of (respiratory, nursing care, review of patient's records, discussion regarding patients management with involved consultants, primary physician, pharmacists, and other healthcare personnel (dietary, case management , physical/occupational therapy etc.)
[2018-10-07] MEDS ORDERED: Polyethylene Glycol 3350* 17 GM PACKET PO PRN (11:32)
[2018-10-07] MEDS: QUEtiapine TAB* 25 MG PO SCH (13:02)
[2018-10-07] MEDS: Finasteride TAB* 5 MG PO SCH (13:02)
[2018-10-07] MEDS ORDERED: PEG 3000 GI LAVAGE* 1 GALLON PO ONE (13:57)
--- NOTE | 2018-10-07 14:40 | CONS ---
CONSULTATION REPORT: DATE OF CONSULT: 10/07/18 INDICATION: Rectal wall thickening. REQUESTING PHYSICIAN: Dr. Navarrete in the ICU. HISTORY OF PRESENT ILLNESS: Mr. Sethi is a pleasant 78-year-old gentleman with chronic lower extremity pain, who was admitted on 10/01/18 for weakness and left lower extremity edema of unknown etiology. At that time, he did have a lumbosacral CT, which revealed rectal thickening. A GI consultation was called this morning due to the rectal thickening seen on CT. The patient denies any symptoms at this time. He denies any rectal pain. He states that he usually is constipated and he only moves his bowels every second to third day. He did have a colonoscopy approximately [address] Zelaya, however , was an incomplete colonoscopy and no followup was every obtained. There was no mention of any rectal pathology back in 2009. The patient denies any unintentional weight loss. He denies any bright red blood in the stools. He does have a history of COPD, paroxysmal AFib and sleep apnea. PAST MEDICAL HISTORY: Please see the HPI. Additionally, he has congestive heart failure, neurogenic bladder, coronary artery disease, history of a CVA. He is totally bedbound and requires total assist with any movement. PAST SURGICAL HISTORY: Includes hip replacements. MEDICATIONS AT HOME: Include: 1. Crestor. 2. Eliquis. 3. Omeprazole. 4. Oxycodone. 5. Avodart. 6. Lexapro. 7. Ferrous sulfate. 8. Albuterol. 9. Lasix. ALLERGIES: ORAL and IV CONTRAST DYE. FAMILY HISTORY: Coronary artery disease, breast cancer and diabetes. SOCIAL HISTORY: He denies any tobacco or alcohol use. REVIEW OF SYSTEMS: A 12-systems were reviewed and other than that mentioned in the HPI were unremarkable. PHYSICAL EXAM: Temperature is 96.7, blood pressure is 92/51, pulse of 100. General: Chronically ill appearing male, lying flat in a chair. HEENT: Mucous membranes are moist. Dentition is poor. Lungs are clear to auscultation bilaterally. No wheezes, rales, or rhonchi. Heart: Irregular rate and rhythm. No murmurs. Abdomen: Morbidly obese, positive bowel sounds, soft, nontender, nondistended. Extremities: Positive bilateral lower extremity edema. Rectal exam deferred at this time due to the fact that the patient is a total assist and in a chair currently. DIAGNOSTIC STUDIES/LAB DATA: Of note, hemoglobin is 12.4, white count is 10.2, platelets of 166, baseline hemoglobin is somewhere in the mid 12 range. BUN is 12, creatinine is 0.63. CT of his lumbar spine on 10/01/18 revealed fecal impaction with diffuse rectal wall thickening. ASSESSMENT AND PLAN: This is a 78-year-old gentleman who was admitted for intractable lower extremity pain, who was found to have incidentally rectal wall thickening. We were consulted by the ICU staff for further management. It has been 9 years since his incomplete colonoscopy with Dr. Zelaya. At this point , we should pursue a flexible sigmoidoscopy to look at the rectal wall to make sure it is not a malignant process. He will be given tap-water enemas and then sedated for a flex sig. He is a Gisel lift and will require total assistance. [id number]/CPS #: [id number] MTDD
[2018-10-07] MEDS: cefTRIAXone(*) 1 GM in NS 0.9% 50 ML* 50 ML IVPB SCH (16:20)
--- NOTE | 2018-10-07 16:54 | CONSULT ---
Consult Consult: INPATIENT PAIN CONSULTATION Familia Sethi is a 78 year old male. He has a long history of chronic pain and was a patient in the Pain Clinic here in 1999-04. He was discharged in 2000, and was on high dose opioids at that time (OxyContin 110 mg TID). He was seeing Dr. Magana in [place] for many years. He has a history of back pain and hip pain. According to [facility], he received prescriptions for OxyContin 15 mg BID from Isa Loredo, an [employer] who works in the Pain [facility] at [facility] and last picked up a prescription on September 21 of this year. Earlier this year, he was on 30 mg BID. According to the records, the patient fell at home in mid August. He was originally brought to the ER September 23 after a fall and he was having intractable left hip and thigh pain. He had an admission July 04 of this year after a fall as well. He was discharged with home services on September 25 but returned to the ER on October 01 and was admitted now with left knee pain. He had a work up in the ER including x-rays of his leg and left knee, had a CT scan of his knee, can't have MRI due to previous coiling of an AVM. He was admitted and given opioids (OxyContin 15 mg BID and oxycodone 5 mg Q6 PRN) but developed lethargy and MS changes yesterday. An ABG showed he had a PCO2 of 100 and he was transferred to the ICU. He has been unable to ambulate. He is being transferred with a jackeline. I am asked to see him for pain. His OxyContin was held overnight. He is on IV Ceftriaxone for a UTI with Klebsiella PAST MEDICAL HISTORY: COPD, INDIGO (uses BiPAP), Neurogenic bladder, CAD, depression, AVM, atrial fibrillation, CVA Allergies Allergy/AdvReac Type Severity Reaction Status Date / Time Iodinated Contrast- Oral and Allergy Intermediate Rash Verified 10/01/18 13:30 IV Dye Current Medications Acetaminophen (Tylenol Tab*) 650 mg PO Q4H PRN PRN Reason: FEVER/PAIN Last Admin: 10/05/18 19:26 Dose: 650 mg Albuterol (Ventolin 2.5 Mg/3 Ml Neb.Damaris*) 2.5 mg INH Q4H PRN PRN Reason: SHORTNESS OF BREATH Last Admin: 10/02/18 19:50 Dose: 2.5 mg Albuterol (Ventolin Hfa Inhaler*) 2 puff INH Q4H PRN PRN Reason: SHORTNESS OF BREATH Last Admin: 10/07/18 07:09 Dose: 2 puff Apixaban (Eliquis*) 5 mg PO BID [facility] Last Admin: 10/07/18 08:10 Dose: 5 mg Atorvastatin Calcium (Lipitor*) 10 mg PO DAILY [facility]; Protocol Last Admin: 10/07/18 08:10 Dose: 10 mg Cholecalciferol (Vitamin D Tab*) 1,000 units PO DAILY [facility] Last Admin: 10/07/18 08:11 Dose: 1,000 units Escitalopram Oxalate (Lexapro *) 20 mg PO DAILY [facility] Last Admin: 10/07/18 08:10 Dose: 20 mg Ferrous Sulfate (Ferrous Sulfate Tab*) 325 mg PO DAILY [facility] Last Admin: 10/07/18 08:10 Dose: 325 mg Finasteride (Proscar Tab*) 5 mg PO DAILY [facility] Last Admin: 10/07/18 13:02 Dose: 5 mg Furosemide (Lasix Tab*) 40 mg PO DAILY [facility] Last Admin: 10/07/18 08:10 Dose: 40 mg Ceftriaxone Sodium 1 gm/ (Sodium Chloride) 50 mls @ 200 mls/hr IVPB Q24H [facility] Stop: 10/11/18 14:59 Last Admin: 10/06/18 15:06 Dose: 200 mls/hr Ibuprofen (Motrin Tab*) 600 mg PO TID [facility] Last Admin: 10/07/18 13:02 Dose: 600 mg Lidocaine (Lidoderm 5% Patch*) 1 patch TRANSDERM DAILY [facility] Last Admin: 10/07/18 08:12 Dose: Not Given Methocarbamol (Robaxin Tab*) 500 mg PO BID [facility] Last Admin: 10/07/18 08:11 Dose: 500 mg Metoprolol Succinate (Toprol Xl Tab*) 25 mg PO DAILY [facility] Last Admin: 10/07/18 08:12 Dose: Not Given Multivitamins/Minerals (Theragran/Minerals Tab*) 1 tab PO DAILY [facility] Last Admin: 10/07/18 08:10 Dose: 1 tab Ondansetron HCl (Zofran Inj*) 4 mg IV Q6H PRN PRN Reason: NAUSEA Last Admin: 10/06/18 05:00 Dose: 4 mg Oxycodone HCl (Roxycodone Tab*) 5 mg PO Q6H PRN PRN Reason: SEVERE PAIN Last Admin: 10/07/18 09:06 Dose: 5 mg Pantoprazole Sodium (Protonix Tab*) 40 mg PO BID [facility] Last Admin: 10/07/18 08:11 Dose: 40 mg Pharmacy Profile Note (Lidocaine Patch Remove*) 1 note PATCH OFF 2100 [facility] Last Admin: 10/06/18 22:00 Dose: 1 note Polyethylene Glycol/Electrolytes (Miralax*) 17 gm PO DAILY PRN PRN Reason: CONSTIPATION Quetiapine Fumarate (Seroquel Tab*) 50 mg PO DAILY [facility] Last Admin: 10/07/18 13:02 Dose: 50 mg Quetiapine Fumarate (Seroquel Tab*) 100 mg PO BEDTIME [facility] SOCIAL HISTORY: Lives with in a 2 story house. He tells me he goes up and down the stairs once a day usually. Non smoker, non drinker ROS: No complaints of SOB or chest pain Vital Signs Temp Pulse Resp BP Pulse Ox 96.7 F 94 26 95/65 96 10/07/18 11:00 10/07/18 15:00 10/07/18 15:00 10/07/18 15:00 10/07/18 15:00 EXAM: LUNGS: Coarse BS HEART: Irreg S1, S2 ABDOMEN: Soft EXTREMITIES: I had difficulty getting either knee to extend to neutral. Left knee did not appear to be swollen or erythematous. Diffuse tenderness NEUROLOGIC: sleepy but arousable. Able to move 4 extremities ASSESSMENT: 1. Internal derangement, left knee 2. Chronic pain PLAN: I agree with holding OxyContin for now, using short acting oxycodone for pain control. I think we could try topical analgesic balm. Ice may be useful as well (or cold packs). Knee seems to be very arthritic and he may benefit from a steroid injection or brace. Given his ROM of his knees, would be surprised if he could do stairs. He seems to have been falling frequently since May. He cannot transfer at this time, and is using jackeline. Will ask PT to see, likely will need subacute rehab prior to returning home
[2018-10-07] MEDS: Ondansetron INJ* 2 MG/ML VIAL IV PRN (19:49)
[2018-10-07] MEDS ORDERED: QUEtiapine TAB* 100 MG PO SCH (21:00)
[2018-10-07] MEDS: Lidocaine Patch REMOVE* 1 NOTE MISC PATCH OFF SCH (22:53)
[2018-10-07] MEDS: Analgesic BALM* 114 GM TOPICAL SCH (22:55)
[2018-10-08 05:39] LABS: Hematocrit 37 % (42-52); Hemoglobin 12.1 g/dL (14.0-18.0); Mean Corpuscular HGB Conc 33 g/dL (31-36); Mean Corpuscular Hemoglobin 30 pg (27-31); Mean Corpuscular Volume 92 fL (80-94); Mean Platelet Volume 8.1 fL (7.4-10.4); Platelet Count 170 10^3/uL (150-450); Red Blood Count 4.03 10^6 /uL (4.18-5.48); Red Cell Distribution Width 14 % (10-15); White Blood Count 8.5 10^3/uL (3.5-10.8)
[2018-10-08 05:55] LABS: BUN/Creatinine Ratio 32.7 (8-20); Calcium 8.8 mg/dL (8.6-10.3); EGFR African American 175.2 (>60); EGFR Non-African American 144.8 (>60); Potassium 3.4 mmol/L (3.5-5.0)
--- NOTE | 2018-10-08 08:32 | PN ---
Date of Service: 10/08/18 - HD 8 Critical Care Services: 78 yo M with PMH including Afib, systolic CHF, INDIGO, recurrent faills, CAD, COPD < seizure, chronic depression, chronic pain and neurogenic bladder presented to the ED on 10/01 with LLE pain. Seen in the ED on 09/23 after a fall. Since that time he has had worsening pain in the LLE, 10/10 below the knee and 5/10 above the knee. At time of presentation pt noted to be somnolent and unable to keep eyes open during exam. Per he has been on oxycontin for intractable pain. Physical exam notable for somnolence, general ill-appearance and distress, and worsened pain with movement to LLE. VSS. Labs unremarkable. XRs and CT of LLE with osteopenia, no visible fracture. Admitted to the medical service for further care; orthopedics consulted. . 10/02: Remains somnolent. Narcotic medications on hold. Unable to obtain MRI secondary to AVM coiling. 10/03: Started on Gabapentin. Continues to report pain in LLE 10/04: Urine culture with Klebsiella. Gabapentin dose increased. Robaxin added for chronic neck pain. Referred to [facility]. 10/05: Reports worst pain now sacral & buttock region. Some pain in LLE while standing with PT and on repositioning. 10/06: No new complaints. Reporting migratory pain. Per nursing often appears sedated. Started on trial of ibuprofen. No improvement with Gabapentin, tapered off. Decubitus ulcer to L upper buttock noted; air mattress and barrier cream ordered. In evening became overly sedated and developed acute respiratory failure with CO2 narcosis likely related to pain medication. Transferred to ICU for BiPAP needs 10/07: Weaned off BiPAP. Alert and oriented. When questioned, endorsed significant depression. Psych consulted. Pain service consulted to assist with titration of regimen. GI consulted for thickening of rectum seen on 10/01 CT. 10/08: No overnight events. Vital Signs: Temp Pulse Resp BP SpO2 FiO2 97.1 F 89 21 112/65 94 30 10/08/18 07:00 10/08/18 07:00 10/08/18 07:00 10/08/18 07:00 10/08/18 07:00 10/08 04:00 Physical Exam: Gen: sleeping comfortably HEENT: NC in place Lungs: CTAB Cardiac: RRR Abdomen: soft, obese, nontender Extremities: warm, dry Neuro: sleeping Fluid Balance (Past 24 Hours): I= O= Net Intake & Output 10/06/18 10/07/18 10/08/18 10/09/18 06:59 06:59 06:59 06:59 Intake Total 336 852 3623 Output Total 1675 1550 1840 60 Balance -775 -1062 -740 -60 Weight 270 lb 8 oz 258 lb 6.108 oz 260 lb 2.327 oz Intake: IV Fluids 50 0 ceftriaoxone' 50 0 IVPB 50 ceftriaoxone' 50 Oral 591 651 1023 Output: Urine 700 Osorio 975 1550 1795 60 Straight Cath 45 Other: Estimated Void Small # Bowel Movements 1 0 0 Estimated Stool Amount Medium # Voids 1 Labs: Laboratory Results - last 24 hr 10/08/18 10/08/18 10/08/18 05:28 05:28 05:28 WBC 8.5 RBC 4.03 L Hgb 12.1 L Hct 37 L MCV 92 MCH 30 MCHC 33 RDW 14 Plt Count 170 MPV 8.1 Sodium 140 Potassium 3.4 L Chloride 100 L Carbon Dioxide 36 H Anion Gap 4 BUN 18 Creatinine 0.55 L Est GFR ( Amer) 175.2 Est GFR (Non-Af Amer) 144.8 BUN/Creatinine Ratio 32.7 H Glucose 102 H Calcium 8.8 Ammonia TNP 10/08/18 06:13 WBC RBC Hgb Hct MCV MCH MCHC RDW Plt Count MPV Sodium Potassium Chloride Carbon Dioxide Anion Gap BUN Creatinine Est GFR ( Amer) Est GFR (Non-Af Amer) BUN/Creatinine Ratio Glucose Calcium Ammonia TNP Studies: 10/06 CXR - cardiogenic pulmonary edema with bibasilar pleural effusions 10/01 CT lumbar spine - diffuse degenerative disc and facet disease. No acute fracture or destructive lesion. Fecal impaction with diffuse rectal wall thickening / US L Leg - no evidence of DVT. Posterior tibial vein also patent. Peroneal vein not visualized. Greater saphenous vein not visualized. / CT L leg - osteopenia, osteoarthritis, no visible fracture. Extensive soft tissue swelling most pronounced along distal lower extremity. 10/01 XR L femur - osteopenia, no visible fracture 10/01 XR L knee - osteopenia, osteoarthritis, no visible fracture 10/01 XR L tib/fib - osteopenia, no visible fracture 10/01 XR L foot - osteopenia, osteoarthritis, no visible fracture. soft tissue swelling Nutrition: heart healthy diet Impression: 78 yo M with chronic pain, chronic depression, CAD, CHF, INDIGO, COPD presented to the ED on 10/01 with LLE pain after a fall a week prior. Workup negative for fracture. Transferred to ICU 10/06 with hypercapneic respiratory failure and CO2 narcosis secondary to narcotics. Now returned to baseline. Plan: Cardiovascular: (1) Afib; (2) CAD; (3) chronic systolic CHF -- HR 83-100 -- SBP 86-127 -- Telemetry -- Eliquis -- atorvastatin -- Metoprolol -- Lasix Home meds: Metoprolol, Eliquis, Rosuvastatin, Lasix Pulmonary: (1) Acute on chronic hypercarbic respiratory failure due to narcotics, resolved; (2) CO2 narcosis, resolved; (3) Pulmonary edema; (4) INDIGO on CPAP; (5) COPD -- RR 14-34 -- sats 93-100 on 3L NC -- Nocturnal CPAP for INDIGO -- CXR, 10/06: cardiogenic pulmonary edema with bilateral pleural effusions -- PRN Albuterol Home meds: albuterol, Umeclidium [place] Gastrointestinal: (1) Constipation; (2) Diffuse rectal wall thickening; (3) hx of hyperammonemia;(4) hx of esophageal stricture -- CT lumbar spine, 10/01: Diffuse rectal wall thickening ~ 9mm, with constipation -- check ammonia with AM labs -- diet: Cardiac -- bowel regimen: Miralax -- ulcer prophylaxis: Protonix -- PRN Zofran -- GI team consulted for rectal wall thickening. Home meds: Omeprazole Endocrine: No acute issues -- monitor BGs Home meds: None Renal: (1) Klebsiella UTI; (2) Neurogenic bladder; (3) BPH; (4) hypokalemia; (5 ) hx of hematuria -- UOP: 65 ml/hr -- Cr 0.55 from 0.63 -- Lytes Na 140 from 140 K 3.4, replace Ca 8.8 -- Lasix -- Proscar Home meds: Avodart, Lasix Infectious disease: (1) Klebsiella UTI -- Tmax 99.2 -- WBC 8.5 from 10.2 -- Micro 7/3 Urine Klebsiella -- ABX Rocephin x 7 days Home meds: None Neurologic: (1) Acute left lower extremity pain; (2) Left hip pain; (3) Neck pain; (4) Chronic pain; (5) Chronic narcotic use; (6) Acute on Chronic depression; (7) hx of seizure; (8) hx of dizziness; (9) Frequent falls -- PRN Tylenol -- ARTI Ibuprofen -- Lidoderm patch, Beng[place] cream -- Robaxin for neck pain -- PRN Oxycodone -- Lexapro -- Seroquel for significant depression/anxiety symptoms preventing him from sleeping -- PT OT -- Pain service consult appreciated -- consult psychiatry. per patient his depression is not well controlled and he "does know if he can make it through the night" Home meds: Lidoderm patch, Lexapro, Roxicodone Hematological: (1) Chronic anemia -- Hgb 12.1 from 12.4 -- Plt 170 from 166 -- DVT prophylaxis: Eliquis -- ferrous sulfate Home meds: Ferrous sulfate, Eliquis Metabolic: No acute issues Home meds: None Other: (1) L buttock decubitus ulcer -- local wound care -- off loading -- cholecalciferol -- MVI Home meds: MVI Deep vein thrombosis prophylaxis: Eliquis Dietary: Protonix Condition: serious Prognosis: poor Code status: full Disposition: transfer to floor Cumulative time spent in the care of this patient (excluding any procedure time) : at least 30 minutes. Patient care included clinical interview (with patient and/or family), bedside exam of the patient, review of labs, x-rays, and other ancillary data, coordination of (respiratory, nursing care, review of patient's records, discussion regarding patients management with involved consultants, primary physician, pharmacists, and other healthcare personnel (dietary, case management , physical/occupational therapy etc.)
[2018-10-08] MEDS: Escitalopram * 20 MG TABLET PO SCH (08:57)
[2018-10-08] MEDS: Pantoprazole TAB * 40 MG TAB PO SCH ×2 (08:57→20:20)
[2018-10-08] MEDS: Metoprolol Succinate XL TAB* 25 MG PO SCH (08:57)
[2018-10-08] MEDS: Apixaban* 5 MG TAB PO SCH ×2 (08:57→20:20)
[2018-10-08] MEDS: Finasteride TAB* 5 MG PO SCH (08:57)
[2018-10-08] MEDS: Analgesic BALM* 114 GM TOPICAL SCH ×2 (08:58→22:16)
[2018-10-08] MEDS: Atorvastatin* 10 MG TAB PO SCH (08:58)
[2018-10-08] MEDS: Lidocaine PATCH 5%* 1 PATCH TRANSDERM SCH (08:58)
[2018-10-08] MEDS: Furosemide TAB* 40 MG PO SCH (08:59)
[2018-10-08] MEDS: Ferrous Sulfate TAB* 325 MG PO SCH (08:59)
[2018-10-08] MEDS: Cholecalciferol TAB* 1000 UNITS PO SCH (08:59)
[2018-10-08] MEDS: Ibuprofen TAB* 600 MG PO SCH ×3 (09:00→20:20)
[2018-10-08] MEDS: Multivitamins/Minerals TAB PO SCH (09:00)
[2018-10-08] MEDS: QUEtiapine TAB* 25 MG PO SCH ×2 (09:00→20:20)
[2018-10-08] MEDS: Methocarbamol TAB* 500 MG PO SCH ×2 (09:00→20:19)
[2018-10-08] MEDS: oxyCODONE TAB* 5 MG TAB PO PRN ×2 (10:52→22:52)
--- NOTE | 2018-10-08 10:53 | PN ---
Progress Note - Progress Note Date of Service: 10/08/18 - update Note: Reviewed records from [facility]. AVM coils were "Tornado" coils implanted in July 2011. Discussed with Radiology, these coils ARE compatible with MRI. Documentation sent to MR department. Orders for MR placed.
[2018-10-08] MEDS ORDERED: fentaNYL* 50 MCG/ML 2 ML VIAL (100 MCG VIAL) ONE (11:17)
[2018-10-08] MEDS ORDERED: Midazolam* 1 MG/ML 10 ML VIAL (10 MG) ONE (11:17)
[2018-10-08 11:30] LABS: Magnesium 1.8 mg/dL (1.9-2.7)
--- NOTE | 2018-10-08 13:28 | PRO ---
DATE: 10/08/18 - ROOM #453 REFERRING PHYSICIAN: Dr. Donna Han, hospitalist. PRIMARY CARE PHYSICIAN: Dr. Royal Paz. PROCEDURE: Flexible sigmoidoscopy after enema prep. INDICATION: This 78-year-old man with chronic lung disease, morbid obesity and numerous other orthopedic and musculoskeletal problems, had a thickened rectal wall suspected on CT of the spine. He has not been having any bowel or specific complaints. A partial colonoscopy by Dr. Zelaya 9 years ago (limited views of the proximal colon) had not shown any rectal pathology. Dr. Delvalle saw him yesterday and ordered tap water enema prep. The nurses state that 200 cc tap water was retained for half an hour and then some solid material was discharged and the second enema was more clear. No blood was seen. The patient's gave consent. Discussion paralleling that was held with the patient and he nodded his head, though did not speak freely preprocedure. Postprocedure, however, he spoke in a normal tone of voice. ENDOSCOPIST: Dr. Mooney. MEDICATIONS: Oral OxyContin given 45 minutes preprocedure with observed somnolence. FINDINGS: He is a morbidly obese man in the ICU with BiPAP applied. He denies any pain. He was positioned left side down and his vitals retaken. He appeared stable and sedated. The colonoscope was inserted and that encountered rectum one quarter full of solid stool. No blood was seen. Distention was symmetric and in an exam to 45 cm, approximately 80% of the rectal and colonic wall was seen. Other areas did not show any limit of distensibility and it is felt sufficient to rule out any intrinsic, mucosal or mural mass. The symmetric distensibility was substantial part of this interpretation. No blood was seen. IMPRESSION: Normal flexible sigmoidoscopy to 45 cm - small polyps cannot be ruled out, but there is no thick mural mass. [id number]/[facility] #: [id number] [facility]
--- NOTE | 2018-10-08 13:45 | CONS ---
CONSULTATION REPORT: DATE OF CONSULTATION: 10/08/18 ATTENDING PHYSICIAN: Dr. Cassidy Navarrete CONSULTING PHYSICIAN: Dr. Serjio Buitrago. REASON FOR CONSULT: Severe depression. SUBJECTIVE HISTORY: Mr. 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 One day prior to now the patient told the ICU attending that he was so depressed that he did not think that he could "make it through the night." He denied active suicidal ideations , but both the primary team and the patient's would like him evaluated for clinical depression. Mr. Sethi is seen in the ICU where he is preparing for sigmoidoscopy. He is extremely lethargic and neurovegetative and most of this history is provided by his Rekha who was present in the room. The history is that the patient's son approximately 3-1/2 years ago of sepsis and the patient has never been able to get over this. He has been through multiple other losses in his life such as the of both of his brothers, and his parents are similarly . Despite this he still maintains an interest in his grandchildren and his one great grandchild. They tend to perk him up when he is in their presence, but other than this he is increasingly isolative, somnolent, lethargic, and depressed. The patient does endorse depressed mood as well as excessive daytime sleepiness with insomnia at night, poor energy, poor concentration and marked psychomotor retardation. The patient denies any history of cinthia or psychosis in the past. He steadfastly denies suicidal or homicidal thinking at this time. I understand that at some point someone started him on escitalopram within the last half year and the patient is uncertain whether this was his primary care provider or one of his attendings here at [facility]. In addition, a trial of low-dose quetiapine was started in the ICU last night. PSYCHIATRIC HISTORY: The patient has been on escitalopram for the past 4 to 5 months. This was continued by his outpatient primary care provider, Dr. Paz in [place]. The patient denies any history of suicidality including suicidal intentions, plans or attempts. He has no history of psychiatric hospitalization. No history of exposure to abuse, trauma or neglect. He has no history of traumatic brain injury. SUBSTANCE ABUSE HISTORY: The patient is a social alcohol drinker who denies any history of tobacco or illicit drugs. PAST MEDICAL HISTORY: Medical history is quite extensive and significant for COPD, on home oxygen congestive heart failure; obstructive sleep apnea, on BiPAP ; neurogenic bladder with self catheterization; coronary artery disease; history of stroke; history of atrial fibrillation, on anticoagulant therapy; history of left arm AV malformation with repair; bilateral hip replacements; hyperlipidemia. MEDICATIONS: Include: 1. Crestor. 2. Ellipta. 3. Lasix. 4. Albuterol. 5. Ferrous sulfate. 6. Eliquis. 7. Lidocaine patch. 8. Lexapro 20 mg p.o. daily. 9. Avodart. 10. Oxycodone. 11. Omeprazole. 12. Metoprolol. 13. Multivitamins. 14. Quetiapine was started one night ago at a dose 75 mg nightly. FAMILY HISTORY: The patient has a son who suffers from depression. SOCIAL HISTORY: The patient was born and raised in [place], [place], and continues to live there with his . He is 1 of 3 brothers. Both of his brothers are . He grew up in an intact family and his parents are now . The patient dropped out of high school in the ninth grade and got a job. 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 He has been twice, several decades ago but then remarried 20 years ago to his current spouse. He has 2 sons, one of whom is . He also has 1 daughter with whom he is estranged. The patient's hobbies include race cars and [employer] firearms, all the guns have been sold and there are no weapons in the home currently. He was never in the . He is not yazdanism or spiritual. He has no significant legal history. MENTAL STATUS EXAM: The patient is an overweight, aging white male, who has a nasal cannula for oxygen. He is lying supine in bed, makes very little effort to converse with this observer. He appears to be extremely fatigued and lethargic. Speech is minimal without spontaneity. Mood is depressed with constricted affect. Thought process is linear, but impoverished. Thought content is significant for somatic concerns of pain in his bilateral feet as well as weakness. He is denying suicidal or homicidal ideations. He denies auditory or visual hallucinations. Insight and judgment are fair, given his willingness to receive antidepressant therapy. Cognitively he is awake, but somnolent and lethargic. DIAGNOSES: Winfall I: Major depressive disorder, single episode, severe, with atypical features. Winfall II: Deferred. 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 He does meet criteria for clinical depression with atypical features, given the presence of hypersomnolance and mood reactivity. This condition tends to respond best to less selective antidepressant strategies and it is perhaps not surprising that he has failed to respond to the strictly serotonergic Lexapro. By adding a trial of bupropion we can add noradrenergic and dopaminergic activity to his treatment. RECOMMENDATIONS TO PRIMARY TEAM: Psychiatry will start a trial of bupropion XL 150 mg daily and he can receive his first dose now. We will maintain him on escitalopram 20 mg daily and it is fine to also leave him on quetiapine 75 mg nightly. Psychiatry will continue to follow the patient. Since he is not suicidal nor risk to others, I do not believe that he warrants treatment in the Behavioral Science Unit. We will continue to co-manage his care with the primary team. Thank you for the consultation [id number]/[facility] #: [id number] DARREN
[2018-10-08] MEDS ORDERED: Magnesium Sulfate 1 GM IV* 1 GM/100 ML BAG IV ONE (13:46)
[2018-10-08] MEDS ORDERED: Potassium Chlor TAB* 20 MEQ TAB.ER PO ONE (13:47)
[2018-10-08] MEDS: BuPROPion XL* 150 MG TAB.XL PO SCH (15:32)
[2018-10-08] MEDS: cefTRIAXone(*) 1 GM in NS 0.9% 50 ML* 50 ML IVPB SCH (15:48)
[2018-10-08] MEDS: Albuterol HFA INHALER* 8 gm MDI INH PRN ×2 (17:59→21:29)
[2018-10-08] MEDS: Lidocaine Patch REMOVE* 1 NOTE MISC PATCH OFF SCH (22:16)
[2018-10-09 08:14] LABS: Hematocrit 39 % (42-52); Mean Corpuscular HGB Conc 33 g/dL (31-36); Mean Corpuscular Hemoglobin 30 pg (27-31); Mean Corpuscular Volume 92 fL (80-94); Mean Platelet Volume 8.1 fL (7.4-10.4); Platelet Count 179 10^3/uL (150-450); Red Blood Count 4.29 10^6 /uL (4.18-5.48); Red Cell Distribution Width 15 % (10-15); White Blood Count 8.3 10^3/uL (3.5-10.8)
[2018-10-09 08:24] LABS: BUN/Creatinine Ratio 30.6 (8-20); Calcium 9.1 mg/dL (8.6-10.3); EGFR African American 152.6 (>60); EGFR Non-African American 126.1 (>60); Magnesium 1.9 mg/dL (1.9-2.7); Potassium 4.2 mmol/L (3.5-5.0)
[2018-10-09] MEDS: Albuterol HFA INHALER* 8 gm MDI INH PRN (08:52)
[2018-10-09] MEDS: Ondansetron INJ* 2 MG/ML VIAL IV PRN (10:13)
[2018-10-09] MEDS: Methocarbamol TAB* 500 MG PO SCH ×2 (10:17→21:47)
[2018-10-09] MEDS: Cholecalciferol TAB* 1000 UNITS PO SCH (10:23)
[2018-10-09] MEDS: Metoprolol Succinate XL TAB* 25 MG PO SCH (10:23)
[2018-10-09] MEDS: Ibuprofen TAB* 600 MG PO SCH ×3 (10:23→21:48)
[2018-10-09] MEDS: Furosemide TAB* 40 MG PO SCH (10:24)
[2018-10-09] MEDS: QUEtiapine TAB* 25 MG PO SCH ×2 (10:25→21:47)
[2018-10-09] MEDS: Escitalopram * 20 MG TABLET PO SCH (10:26)
[2018-10-09] MEDS: Apixaban* 5 MG TAB PO SCH ×2 (10:26→21:47)
[2018-10-09] MEDS: Finasteride TAB* 5 MG PO SCH (10:26)
[2018-10-09] MEDS: Multivitamins/Minerals TAB PO SCH (10:26)
[2018-10-09] MEDS: Atorvastatin* 10 MG TAB PO SCH (10:27)
[2018-10-09] MEDS: Pantoprazole TAB * 40 MG TAB PO SCH ×2 (10:27→21:48)
[2018-10-09] MEDS: Ferrous Sulfate TAB* 325 MG PO SCH (10:27)
[2018-10-09] MEDS: Lidocaine PATCH 5%* 1 PATCH TRANSDERM SCH (10:31)
[2018-10-09] MEDS: BuPROPion XL* 150 MG TAB.XL PO SCH (11:39)
[2018-10-09] MEDS: Analgesic BALM* 114 GM TOPICAL SCH ×2 (11:39→21:52)
--- NOTE | 2018-10-09 13:07 | PN ---
Subjective Date of Service: 10/09/18 Interval History: Mr. Sethi is feeling better this morning. He wants to go home. Admits to SOB , but is at baseline oxygen requirements. He believes he can return home despite the fact that he was hoyered to a chair this morning. He typically self- caths at home and when asked if he could restart cathing he reported he could not because he needs to stand. He denies CP, N/V. Nursing reports depression and comments that are borderline suicidal. Family History: Unchanged from Admission Social History: Unchanged from Admission Past Medical History: Unchanged from Admission Objective Active Medications: Acetaminophen (Tylenol Tab*) 650 mg PO Q4H PRN FEVER/PAIN Albuterol (Ventolin 2.5 Mg/3 Ml Neb.Damaris*) 2.5 mg INH Q4H PRN SHORTNESS OF BREATH Albuterol (Ventolin Hfa Inhaler*) 2 puff INH Q4H PRN SHORTNESS OF BREATH Apixaban (Eliquis*) 5 mg PO BID ARTI Atorvastatin Calcium (Lipitor*) 10 mg PO DAILY ARTI Bupropion HCl (Wellbutrin Xl *) 150 mg PO DAILY ARTI Cholecalciferol (Vitamin D Tab*) 1,000 units PO DAILY ARTI Escitalopram Oxalate (Lexapro *) 20 mg PO DAILY ARTI Ferrous Sulfate (Ferrous Sulfate Tab*) 325 mg PO DAILY ARTI Finasteride (Proscar Tab*) 5 mg PO DAILY ARTI Furosemide (Lasix Tab*) 40 mg PO DAILY ARTI Ceftriaxone Sodium 1 gm/ (Sodium Chloride) 50 mls @ 200 mls/hr IVPB Q24H ARTI Ibuprofen (Motrin Tab*) 600 mg PO TID ARTI Lidocaine (Lidoderm 5% Patch*) 1 patch TRANSDERM DAILY ARTI Methocarbamol (Robaxin Tab*) 500 mg PO BID ARTI Metoprolol Succinate (Toprol Xl Tab*) 25 mg PO DAILY ARTI Multi-Ingredient Liniment/Rub (Abimael Rausch*) 1 applic TOPICAL BID ARTI Multivitamins/Minerals (Theragran/Minerals Tab*) 1 tab PO DAILY ARTI Ondansetron HCl (Zofran Inj*) 4 mg IV Q6H PRN NAUSEA Oxycodone HCl (Roxycodone Tab*) 5 mg PO Q6H PRN SEVERE PAIN Pantoprazole Sodium (Protonix Tab*) 40 mg PO BID ARTI Polyethylene Glycol/Electrolytes (Miralax*) 17 gm PO DAILY PRN CONSTIPATION Quetiapine Fumarate (Seroquel Tab*) 50 mg PO BEDTIME ARTI Quetiapine Fumarate (Seroquel Tab*) 25 mg PO DAILY ARTI Vital Signs - 8 hr 10/09/18 10/09/18 10/09/18 08:52 09:16 10:17 Temperature 98.2 F Pulse Rate 86 91 Respiratory 16 20 18 Rate Blood Pressure 130/61 (mmHg) O2 Sat by Pulse 96 100 Oximetry 10/09/18 11:47 Temperature 98.7 F Pulse Rate 61 Respiratory 19 Rate Blood Pressure 105/63 (mmHg) O2 Sat by Pulse 95 Oximetry Oxygen Devices in Use Now: Nasal Cannula - 2L Appearance: Elderly male sitting in chair in NAD Eyes: No Scleral Icterus Ears/Nose/Mouth/Throat: Mucous Membranes Moist Neck: NL Appearance and Movements; NL JVP, Trachea Midline Respiratory: Symmetrical Chest Expansion and Respiratory Effort, Clear to Auscultation Cardiovascular: NL Sounds; No Murmurs; No JVD Abdominal: NL Sounds; No Tenderness; No Distention Extremities: No Edema Neurological: Alert and Oriented x 3 Lines/Tubes/Other Access: Clean, Dry and Intact Peripheral IV Nutrition: Taking PO's Result Diagrams: 10/09/18 07:56 10/09/18 07:56 Assess/Plan/Problems-Billing Assessment: Mr. Sethi is a 78 yo M with PMH of obesity, COPD on home O2, systolic CHF, INDIGO, neurogenic bladder (self-caths at home), CAD, CVA, pAFib on Apixaban, h/o left arm AVM coiling, and recent admission to [facility] [place] from 09/23 to 09/25 after sustaining a fall with c/o left hip pain; who presented to ED with c/o left leg pain and inability to ambulate. Hospitalization complicated by acute respiratory failure requiring BiPAP. - Patient Problems (1) Acute on chronic respiratory failure with hypoxia and hypercapnia Code(s): J96.21 - ACUTE AND CHRONIC RESPIRATORY FAILURE WITH HYPOXIA; J96.22 - ACUTE AND CHRONIC RESPIRATORY FAILURE WITH HYPERCAPNIA Comment: - Requiring transfer to ICU for BiPAP, now back at baseline 2-3L NC - Secondary to narcotics and pulmonary edema - No indication for steroids or abx - Continue albuterol (2) UTI (urinary tract infection) Comment: - Urine culture growing 75-100k colonies Klebsiella - High risk for UTI d/t self-cathing - Continue ceftriaxone (day 5) (3) Left tibial fracture Code(s): S82.A - UNSP FRACTURE OF SHAFT OF LEFT TIBIA, INIT FOR CLOS FX Comment: - Left knee pain reported on admission with difficulty bearing weight - MRI yesterday showing subchondral insufficiency fracture at the lateral tibial plateau with associated bone marrow edema - Appreciate Ortho consult - Continue oxycodone (4) Depression Code(s): F32.9 - MAJOR DEPRESSIVE DISORDER, SINGLE EPISODE, UNSPECIFIED Comment: - Exacerbated during hospital stay - Psych following - Continue escitalopram, bupropion, Seroquel (5) Chronic systolic congestive heart failure Code(s): I50.22 - CHRONIC SYSTOLIC (CONGESTIVE) HEART FAILURE Comment: - CXR on 10/06 showing pulmonary edema, now resolved - No evidence of exacerbation - Echo in July shows EF 45-50% - Continue metoprolol, furosemide (6) Atrial fibrillation Code(s): I48.91 - UNSPECIFIED ATRIAL FIBRILLATION Comment: - Rate controlled - Continue metoprolol, Eliquis (7) CAD (coronary artery disease) Code(s): I25.10 - ATHSCL HEART DISEASE OF [place] CORONARY ARTERY W/O ANG PCTRS Comment: - Continue aspirin, metoprolol, atorvastatin (8) COPD (chronic obstructive pulmonary disease) Code(s): J44.9 - CHRONIC OBSTRUCTIVE PULMONARY DISEASE, UNSPECIFIED Comment: - Not in acute exacerbation - Continue albuterol; resume anticholinergic (9) Neurogenic bladder Code(s): N31.9 - NEUROMUSCULAR DYSFUNCTION OF BLADDER, UNSPECIFIED Comment: - Usually self caths at home, but does not have supplies so Osorio was placed - Family to bring in home supplies and will remove Osorio at that time (10) INDIGO (obstructive sleep apnea) Code(s): G47.33 - OBSTRUCTIVE SLEEP APNEA (ADULT) (PEDIATRIC) Comment: - Continue BiPAP (11) BPH (benign prostatic hyperplasia) Code(s): N40.0 - BENIGN PROSTATIC HYPERPLASIA WITHOUT LOWER URINRY TRACT SYMP Comment: - Continue finasteride (12) DVT prophylaxis Comment: - Eliquis (13) Full code status Code(s): Z78.9 - OTHER SPECIFIED HEALTH STATUS Comment: Status and Disposition: Inpatient. Anticipate d/c to [facility] when medically stable. Attending: Sherin Gusman
--- NOTE | 2018-10-09 13:08 | PN ---
Progress Note - Progress Note Date of Service: 10/09/18 SOAP: Subjective: []Patient seen OOB in chair with his present. His left knee remains painful. Denies pain of the left leg otherwise. Objective: []General: NAD, sitting comfortably in a chair LLE: Skin envelope intact, no tenderness to palpation of the LLE today, no tenderness at lateral tibial plateau. PROM ankle, knee and hip is nonpainful. Assessment: []Subchondral insufficiency fracture left lateral tibial plateau Plan: []TTWB LLE Hinged knee brace F/U outpt in 2 weeks, sooner with concerns Diagnostic Studies: L Knee MRI IMPRESSION: #. Subtle subchondral insufficiency fracture at the lateral tibial plateau with associated bone marrow edema. #. Advanced osteoarthritis. #. Small joint effusion without fat fluid level Vital Signs Temp 98.7 F 10/09/18 11:47 Pulse 61 10/09/18 11:47 Resp 19 10/09/18 11:47 BP 105/63 10/09/18 11:47 Pulse Ox 95 10/09/18 11:47 Intake & Output 10/08/18 10/09/18 10/09/18 18:59 06:59 18:59 Intake Total 375 125 Output Total 1186 250 Balance -811 -125 Weight 260 lb 2.327 oz Intake: Oral 375 125 Output: Urine 250 Osorio 1186 Laboratory Last Values WBC 8.3 10^3/uL (3.5-10.8) 10/09/18 07:56 RBC 4.29 10^6 /uL (4.18-5.48) 10/09/18 07:56 Hgb 13.0 g/dL (14.0-18.0) L 10/09/18 07:56 Hct 39 % (42-52) L 10/09/18 07:56 MCV 92 fL (80-94) 10/09/18 07:56 MCH 30 pg (27-31) 10/09/18 07:56 MCHC 33 g/dL (31-36) 10/09/18 07:56 RDW 15 % (10-15) 10/09/18 07:56 Plt Count 179 10^3/uL (150-450) 10/09/18 07:56 MPV 8.1 fL (7.4-10.4) 10/09/18 07:56 Neut % (Auto) 64.1 % 10/07/18 04:32 Lymph % (Auto) 20.1 % 10/07/18 04:32 [place] % (Auto) 10.0 % 10/07/18 04:32 Eos % (Auto) 5.3 % 10/07/18 04:32 Baso % (Auto) 0.5 % 10/07/18 04:32 Absolute Neuts (auto) 6.5 10^3/ul (1.5-7.7) 10/07/18 04:32 Absolute Lymphs (auto) 2.0 10^3/ul (1.0-4.8) 10/07/18 04:32 Absolute Monos (auto) 1.0 10^3/ul (0-0.8) H 10/07/18 04:32 Absolute Eos (auto) 0.5 10^3/ul (0-0.6) 10/07/18 04:32 Absolute Basos (auto) 0.1 10^3/ul (0-0.2) 10/07/18 04:32 Absolute Nucleated RBC 0.0 10^3/ul 10/07/18 04:32 Nucleated RBC % 0.1 10/07/18 04:32 Patient Temperature Not Reportable 10/07/18 06:04 ABG pH 7.43 (7.35-7.45) 10/07/18 06:04 ABG pH (Temp Correct) Not Reportable 10/07/18 06:04 ABG pCO2 65 mmHg (35-45) H 10/07/18 06:04 ABG pCO2 (Temp Corrct Not Reportable 10/07/18 06:04 ABG pO2 76 mmHg (80-100) L 10/07/18 06:04 ABG pO2 (Temp Correct Not Reportable 10/07/18 06:04 ABG HCO3 37.0 mmol/L (19-31) H 10/07/18 06:04 ABG O2 Saturation 98.8 % (94.0-98.0) H 10/07/18 06:04 ABG Base Excess 15.5 mmol/L (-2.0-2.0) H 10/07/18 06:04 Respiration Rate 12 10/07/18 06:04 O2 Delivery Device bipap 10/07/18 06:04 Ventilator Type Not Reportable 10/07/18 06:04 Vent Mode Not Reportable 10/07/18 06:04 FiO2 30 10/07/18 06:04 Inspiratory Time Not Reportable 10/07/18 06:04 PEEP Not Reportable 10/07/18 06:04 Pressure Support Not Reportable 10/07/18 06:04 Pressure Control Not Reportable 10/07/18 06:04 EPAP 8 10/07/18 06:04 IPAP 14 10/07/18 06:04 BiPAP s/t 10/07/18 06:04 Sodium 141 mmol/L (135-145) 10/09/18 07:56 Potassium 4.2 mmol/L (3.5-5.0) 10/09/18 07:56 Chloride 103 mmol/L (101-111) 10/09/18 07:56 Carbon Dioxide 36 mmol/L (22-32) H 10/09/18 07:56 Anion Gap 2 mmol/L (2-11) 10/09/18 07:56 BUN 19 mg/dL (6-24) 10/09/18 07:56 Creatinine 0.62 mg/dL (0.67-1.17) L 10/09/18 07:56 Est GFR ( Amer) 152.6 (>60) 10/09/18 07:56 Est GFR (Non-Af Amer) 126.1 (>60) 10/09/18 07:56 BUN/Creatinine Ratio 30.6 (8-20) H 10/09/18 07:56 Glucose 110 mg/dL (70-100) H 10/09/18 07:56 POC Glucose (mg/dL) 141 mg/dL (70-100) H 10/02/18 13:37 Calcium 9.1 mg/dL (8.6-10.3) 10/09/18 07:56 Magnesium 1.9 mg/dL (1.9-2.7) 10/09/18 07:56 Total Bilirubin 0.50 mg/dL (0.2-1.0) 10/01/18 15:35 AST 16 U/L (13-39) 10/01/18 15:35 ALT 9 U/L (7-52) 10/01/18 15:35 Alkaline Phosphatase 76 U/L (34-104) 10/01/18 15:35 Ammonia 55 mcmol/L (16-53) H 10/08/18 09:15 Total Creatine Kinase 49 U/L (10-223) 10/01/18 15:35 C-Reactive Protein 11.95 mg/L (<8.01) H 10/05/18 06:02 B-Natriuretic Peptide 202 pg/mL (<=100) H 10/01/18 15:47 Total Protein 5.9 g/dL (6.4-8.9) L 10/01/18 15:35 Albumin 3.3 g/dL (3.2-5.2) 10/01/18 15:35 Globulin 2.6 g/dL (2-4) 10/01/18 15:35 Albumin/Globulin Ratio 1.3 (1-3) 10/01/18 15:35 25-OH Vitamin D Total 22.7 ng/mL (20-50) 10/06/18 05:42 Urine Color Yellow 10/02/18 13:55 Urine Appearance Cloudy 10/02/18 13:55 Urine pH 6.0 (5-9) 10/02/18 13:55 Ur Specific [place] 1.008 (1.010-1.030) L 10/02/18 13:55 Urine Protein Negative (Negative) 10/02/18 13:55 Urine Ketones Negative (Negative) 10/02/18 13:55 Urine Blood Negative (Negative) 10/02/18 13:55 Urine Nitrate Negative (Negative) 10/02/18 13:55 Urine Bilirubin Negative (Negative) 10/02/18 13:55 Urine Urobilinogen Negative (Negative) 10/02/18 13:55 Ur Leukocyte Esterase Trace (Negative) A 10/02/18 13:55 Urine WBC (Auto) 1+(6-10/hpf) (Absent) A 10/02/18 13:55 Urine RBC (Auto) Trace(0-2/hpf) (Absent) 10/02/18 13:55 Urine Bacteria Absent (Absent) 10/02/18 13:55 Urine Glucose Negative (Negative) 10/02/18 13:55
--- NOTE | 2018-10-09 14:48 | CONSULT ---
Identification - Patient Identification Reason for Psychiatric Consultation: Patient Distress -: Patient is a 78 year old, M admitted on 10/01/18. - MHU Identification Employment Status: Disabled Hx Psychiatric Hospitalization: No History - Objective HPI: Familia is seen for follow up on . Staff indicates that earlier this morning he made parasuicidal statements to the effect that he misses his son and would be better off not being alive anymore. On exam he remains lethargic, with no spontaneous speech and minimal interactivity. He denies SI to me but endorses continued depressed mood and "antsyness" about going to [facility] after discharge. I understand from staff that he missed his morning dose of bupropion XL this AM due to pharmacy being out of stock with resupply not available until later today. I discussed the rationale for adding this medication and he offered consent. Exam Appearance: Obese Hygiene: Normal Grooming: Fairly Well Kept Psychomotor Activities: Abnormal-Decreased Exhibits Abnormal Movement: No Attitude and Relatedness: Withdrawn Eye Contact: Poor - Speech Quality: Unpressured Latencies: Long Quantity: Terse Patient's Decription of Mood: "Sad" Observed Affect: Constricted Affect Consistent with: Dysphoria Patient's Thought Process: Impoverished Thought Content: Yes Passive Wish, No Suicidal Planning, No Homicidal Ideation, No Paranoid Ideation Experiencing Hallucinations: No, Sensorium is Clear Type of Hallucinations: Visual: No, Auditory: No, Command: No Level of Consciousness: Alert Orientation: Yes Intact, Yes Orientated to Time, Yes Orientated to Place, Yes Orientated to Person Impulse Control: Poor Insight and Judgement: Impaired Impression - Impression Clinical Impression: 78 y.o. , white male with several medical comorbidities, depression and current medical hospitalization for severe pain and gait disturbance in setting of arthritis and small fracture of left knee being seen by psychiatry due to severe, atypical depressive illness. Inpatient DSM-V Dx: F32.9 Merits Inpatient Hospitalization: No BSU: Problem List - Patient Problems (1) MDD (major depressive disorder), single episode with atypical features Current Visit: Yes Status: Acute Priority: Medium Code(s): F32.9 - MAJOR DEPRESSIVE DISORDER, SINGLE EPISODE, UNSPECIFIED SNOMED Code(s): 57243476 Plan - Treatment Plan Treatment Plan: We have added bupropion XL 150mg PO qam and quetiapine 25mg PO qday/50mg PO qhs to his existing regimen of escitalopram 20mg PO qday. Will continue to follow. Continued Medication Management: Start Medication Medications: Current Medications Acetaminophen (Tylenol Tab*) 650 mg PO Q4H PRN PRN Reason: Fever/Pain 1-08/09 Albuterol (Ventolin 2.5 Mg/3 Ml Neb.Damaris*) 2.5 mg INH Q4H PRN PRN Reason: SHORTNESS OF BREATH Last Admin: 10/02/18 19:50 Dose: 2.5 mg Albuterol (Ventolin Hfa Inhaler*) 2 puff INH Q4H PRN PRN Reason: SHORTNESS OF BREATH Last Admin: 10/09/18 08:52 Dose: 2 puff Apixaban (Eliquis*) 5 mg PO BID [facility] Last Admin: 10/09/18 10:26 Dose: 5 mg Atorvastatin Calcium (Lipitor*) 10 mg PO DAILY [facility]; Protocol Last Admin: 10/09/18 10:27 Dose: 10 mg Bupropion HCl (Wellbutrin Xl *) 150 mg PO DAILY [facility] Last Admin: 10/09/18 11:39 Dose: Not Given Cholecalciferol (Vitamin D Tab*) 1,000 units PO DAILY [facility] Last Admin: 10/09/18 10:23 Dose: 1,000 units Escitalopram Oxalate (Lexapro *) 20 mg PO DAILY [facility] Last Admin: 10/09/18 10:26 Dose: 20 mg Ferrous Sulfate (Ferrous Sulfate Tab*) 325 mg PO DAILY [facility] Last Admin: 10/09/18 10:27 Dose: 325 mg Finasteride (Proscar Tab*) 5 mg PO DAILY [facility] Last Admin: 10/09/18 10:26 Dose: 5 mg Furosemide (Lasix Tab*) 40 mg PO DAILY [facility] Last Admin: 10/09/18 10:24 Dose: 40 mg Ceftriaxone Sodium 1 gm/ (Sodium Chloride) 50 mls @ 200 mls/hr IVPB Q24H [facility] Stop: 10/11/18 14:59 Last Admin: 10/08/18 15:48 Dose: 200 mls/hr Ibuprofen (Motrin Tab*) 600 mg PO TID [facility] Last Admin: 10/09/18 10:23 Dose: 600 mg Lidocaine (Lidoderm 5% Patch*) 1 patch TRANSDERM DAILY [facility] Last Admin: 10/09/18 10:31 Dose: Not Given Methocarbamol (Robaxin Tab*) 500 mg PO BID [facility] Last Admin: 10/09/18 10:17 Dose: 500 mg Metoprolol Succinate (Toprol Xl Tab*) 25 mg PO DAILY [facility] Last Admin: 10/09/18 10:23 Dose: 25 mg Multi-Ingredient Liniment/Rub (Abimael Rausch*) 1 applic TOPICAL BID [facility] Last Admin: 10/09/18 11:39 Dose: Not Given Multivitamins/Minerals (Theragran/Minerals Tab*) 1 tab PO DAILY [facility] Last Admin: 10/09/18 10:26 Dose: 1 tab Ondansetron HCl (Zofran Inj*) 4 mg IV Q6H PRN PRN Reason: NAUSEA Last Admin: 10/09/18 10:13 Dose: 4 mg Oxycodone HCl (Roxycodone Tab*) 5 mg PO Q6H PRN PRN Reason: Pain 5-01/09 Pantoprazole Sodium (Protonix Tab*) 40 mg PO BID [facility] Last Admin: 10/09/18 10:27 Dose: 40 mg Pharmacy Profile Note (Lidocaine Patch Remove*) 1 note PATCH OFF 2099 [facility] Last Admin: 10/08/18 22:16 Dose: Not Given Polyethylene Glycol/Electrolytes (Miralax*) 17 gm PO DAILY PRN PRN Reason: CONSTIPATION Quetiapine Fumarate (Seroquel Tab*) 50 mg PO BEDTIME [facility] Last Admin: 10/08/18 20:20 Dose: 50 mg Quetiapine Fumarate (Seroquel Tab*) 25 mg PO DAILY [facility] Last Admin: 10/09/18 10:25 Dose: 25 mg Umeclidinium [place] (Incruse Ellipta Mdi (Nf)) 1 inh INH DAILY [facility]
[2018-10-09] MEDS: cefTRIAXone(*) 1 GM in NS 0.9% 50 ML* 50 ML IVPB SCH (15:23)
[2018-10-09] MEDS: oxyCODONE TAB* 5 MG TAB PO PRN ×2 (15:28→21:48)
[2018-10-09] MEDS ORDERED: Melatonin 3 MG TAB PO PRN (21:47)
[2018-10-09] MEDS: Lidocaine Patch REMOVE* 1 NOTE MISC PATCH OFF SCH (21:52)
[2018-10-09] MEDS: Acetaminophen TAB* 325 MG PO PRN (23:12)
[2018-10-10 06:31] LABS: Hematocrit 40 % (42-52); Hemoglobin 13.2 g/dL (14.0-18.0); Mean Corpuscular HGB Conc 33 g/dL (31-36); Mean Corpuscular Hemoglobin 31 pg (27-31); Mean Corpuscular Volume 92 fL (80-94); Mean Platelet Volume 8.1 fL (7.4-10.4); Platelet Count 183 10^3/uL (150-450); Red Blood Count 4.28 10^6 /uL (4.18-5.48); Red Cell Distribution Width 14 % (10-15); White Blood Count 9.4 10^3/uL (3.5-10.8)
[2018-10-10 06:49] LABS: BUN/Creatinine Ratio 34.5 (8-20); Calcium 9.1 mg/dL (8.6-10.3); EGFR African American 175.2 (>60); EGFR Non-African American 144.8 (>60); Magnesium 1.8 mg/dL (1.9-2.7)
[2018-10-10] MEDS: oxyCODONE TAB* 5 MG TAB PO PRN (08:44)
[2018-10-10] MEDS: Furosemide TAB* 40 MG PO SCH (08:45)
[2018-10-10] MEDS: Atorvastatin* 10 MG TAB PO SCH (08:45)
[2018-10-10] MEDS: Finasteride TAB* 5 MG PO SCH (08:45)
[2018-10-10] MEDS: Metoprolol Succinate XL TAB* 25 MG PO SCH (08:45)
[2018-10-10] MEDS: Apixaban* 5 MG TAB PO SCH ×2 (08:46→19:45)
[2018-10-10] MEDS: Pantoprazole TAB * 40 MG TAB PO SCH ×2 (08:46→19:43)
[2018-10-10] MEDS: Multivitamins/Minerals TAB PO SCH (08:46)
[2018-10-10] MEDS: Methocarbamol TAB* 500 MG PO SCH ×2 (08:46→19:44)
[2018-10-10] MEDS: Ferrous Sulfate TAB* 325 MG PO SCH (08:47)
[2018-10-10] MEDS: Ibuprofen TAB* 600 MG PO SCH ×3 (08:47→19:43)
[2018-10-10] MEDS: Cholecalciferol TAB* 1000 UNITS PO SCH (08:47)
[2018-10-10] MEDS: QUEtiapine TAB* 25 MG PO SCH ×2 (08:47→19:42)
[2018-10-10] MEDS: BuPROPion XL* 150 MG TAB.XL PO SCH (08:48)
[2018-10-10] MEDS: Escitalopram * 20 MG TABLET PO SCH (08:48)
[2018-10-10] MEDS ORDERED: Umeclidinium 62.5 MDI(NF) MDI INH SCH (09:00)
[2018-10-10] MEDS ORDERED: Magnesium Sulfate 2 GM IV* 2 GM/50 ML BAG IVPB ONE (09:04)
[2018-10-10] MEDS: Ondansetron INJ* 2 MG/ML VIAL IV PRN (09:23)
[2018-10-10] MEDS ORDERED: Sodium Bicarbonate (ANTACID)* 650 MG TAB PO ONE (09:34)
[2018-10-10] MEDS ORDERED: Calcium Carbonate CHEW TAB* 500 MG (TUMS) PO ONE (09:35)
[2018-10-10] MEDS ORDERED: Spiriva Inhaler DEVICE* 1 EACH DEVICE INH SCH (11:00)
[2018-10-10] MEDS: Analgesic BALM* 114 GM TOPICAL SCH ×2 (11:45→21:29)
[2018-10-10] MEDS: Lidocaine PATCH 5%* 1 PATCH TRANSDERM SCH (11:45)
[2018-10-10] MEDS: Tiotropium CAP.INH* CAP.INH/18 MCG (USE ORDER SET !) INH SCH (12:55)
--- NOTE | 2018-10-10 14:32 | CONSULT ---
Identification - Patient Identification Reason for Psychiatric Consultation: Patient Distress -: Patient is a 78 year old, M admitted on 10/01/18. - MHU Identification Employment Status: Disabled Hx Psychiatric Hospitalization: No History - Objective HPI: Familia is seen in his [facility] room with his Rekha. He remains depressed but denies SI. The pharmacy received it's shipment of bupropion XL and he had the second dose of this this morning. He is sedated, perhaps secondary to AM quetiapine. The family is eschewing [facility] placement in favor of going home, perhaps tomorrow. Exam Appearance: Obese Hygiene: Normal Grooming: Fairly Well Kept Psychomotor Activities: Abnormal-Decreased Exhibits Abnormal Movement: No Attitude and Relatedness: Withdrawn Eye Contact: Poor - Speech Quality: Unpressured Latencies: Long Quantity: Terse Patient's Decription of Mood: "Sad" Observed Affect: Constricted Affect Consistent with: Dysphoria Patient's Thought Process: Impoverished Thought Content: Yes Passive Wish, No Suicidal Planning, No Homicidal Ideation, No Paranoid Ideation Experiencing Hallucinations: No, Sensorium is Clear Type of Hallucinations: Visual: No, Auditory: No, Command: No Level of Consciousness: Alert Orientation: Yes Intact, Yes Orientated to Time, Yes Orientated to Place, Yes Orientated to Person Impulse Control: Poor Insight and Judgement: Impaired Impression - Impression Clinical Impression: 78 y.o. , white male with several medical comorbidities, depression and current medical hospitalization for severe pain and gait disturbance in setting of arthritis and small fracture of left knee being seen by psychiatry due to severe, atypical depressive illness. Inpatient DSM-V Dx: F32.9 Merits Inpatient Hospitalization: No BSU: Problem List - Patient Problems (1) MDD (major depressive disorder), single episode with atypical features Current Visit: Yes Status: Acute Priority: Medium Code(s): F32.9 - MAJOR DEPRESSIVE DISORDER, SINGLE EPISODE, UNSPECIFIED SNOMED Code(s): 67724009 Plan - Treatment Plan Treatment Plan: We have added bupropion XL 150mg PO qam and quetiapine 25mg PO qday/50mg PO qhs to his existing regimen of escitalopram 20mg PO qday. Will change quetiapine to exclusive HS dosing to reduce daytime sedation. Psychiatry is supportive of plan to discharge home. Will continue to follow. Continued Medication Management: Start Medication Medications: Current Medications Acetaminophen (Tylenol Tab*) 650 mg PO Q4H PRN PRN Reason: Fever/Pain -08/09 Last Admin: 10/09/18 23:12 Dose: 650 mg Albuterol (Ventolin 2.5 Mg/3 Ml Neb.Damaris*) 2.5 mg INH Q4H PRN PRN Reason: SHORTNESS OF BREATH Last Admin: 10/02/18 19:50 Dose: 2.5 mg Albuterol (Ventolin Hfa Inhaler*) 2 puff INH Q4H PRN PRN Reason: SHORTNESS OF BREATH Last Admin: 10/09/18 08:52 Dose: 2 puff Apixaban (Eliquis*) 5 mg PO BID [facility] Last Admin: 10/10/18 08:46 Dose: 5 mg Atorvastatin Calcium (Lipitor*) 10 mg PO DAILY [facility]; Protocol Last Admin: 10/10/18 08:45 Dose: 10 mg Bupropion HCl (Wellbutrin Xl *) 150 mg PO DAILY [facility] Last Admin: 10/10/18 08:48 Dose: 150 mg Cholecalciferol (Vitamin D Tab*) 1,000 units PO DAILY [facility] Last Admin: 10/10/18 08:47 Dose: 1,000 units Device (Tiotropium Inhaler Device*) 1 each INH .USE w/ SPIRIVA CAPS [facility] Escitalopram Oxalate (Lexapro *) 20 mg PO DAILY [facility] Last Admin: 10/10/18 08:48 Dose: 20 mg Ferrous Sulfate (Ferrous Sulfate Tab*) 325 mg PO DAILY [facility] Last Admin: 10/10/18 08:47 Dose: 325 mg Finasteride (Proscar Tab*) 5 mg PO DAILY [facility] Last Admin: 10/10/18 08:45 Dose: 5 mg Furosemide (Lasix Tab*) 40 mg PO DAILY [facility] Last Admin: 10/10/18 08:45 Dose: 40 mg Ceftriaxone Sodium 1 gm/ (Sodium Chloride) 50 mls @ 200 mls/hr IVPB Q24H [facility] Stop: 10/11/18 14:59 Last Admin: 10/09/18 15:23 Dose: 200 mls/hr Ibuprofen (Motrin Tab*) 600 mg PO TID [facility] Last Admin: 10/10/18 08:47 Dose: 600 mg Lidocaine (Lidoderm 5% Patch*) 1 patch TRANSDERM DAILY [facility] Last Admin: 10/10/18 11:45 Dose: Not Given Melatonin (Melatonin) 3 mg PO QPM PRN PRN Reason: SLEEP Methocarbamol (Robaxin Tab*) 500 mg PO BID [facility] Last Admin: 10/10/18 08:46 Dose: 500 mg Metoprolol Succinate (Toprol Xl Tab*) 25 mg PO DAILY [facility] Last Admin: 10/10/18 08:45 Dose: 25 mg Multi-Ingredient Liniment/Rub (Abimael Rausch*) 1 applic TOPICAL BID [facility] Last Admin: 10/10/18 11:45 Dose: Not Given Multivitamins/Minerals (Theragran/Minerals Tab*) 1 tab PO DAILY [facility] Last Admin: 10/10/18 08:46 Dose: 1 tab Ondansetron HCl (Zofran Inj*) 4 mg IV Q6H PRN PRN Reason: NAUSEA Last Admin: 10/10/18 09:23 Dose: 4 mg Oxycodone HCl (Roxycodone Tab*) 5 mg PO Q6H PRN PRN Reason: Pain 5-01/09 Last Admin: 10/10/18 08:44 Dose: 5 mg Pantoprazole Sodium (Protonix Tab*) 40 mg PO BID [facility] Last Admin: 10/10/18 08:46 Dose: 40 mg Pharmacy Profile Note (Lidocaine Patch Remove*) 1 note PATCH OFF 2100 [facility] Last Admin: 10/09/18 21:52 Dose: Not Given Polyethylene Glycol/Electrolytes (Miralax*) 17 gm PO DAILY PRN PRN Reason: CONSTIPATION Quetiapine Fumarate (Seroquel Tab*) 50 mg PO BEDTIME [facility] Last Admin: 10/09/18 21:47 Dose: 50 mg Quetiapine Fumarate (Seroquel Tab*) 25 mg PO DAILY [facility] Last Admin: 10/10/18 08:47 Dose: 25 mg Tiotropium [place] (Spiriva Cap.Inh*) 1 cap INH DAILY [facility] Last Admin: 10/10/18 12:55 Dose: 1 cap - Discharge Plan Discharge Plan: Outpatient Follow Up
[2018-10-10] MEDS: cefTRIAXone(*) 1 GM in NS 0.9% 50 ML* 50 ML IVPB SCH (14:40)
--- NOTE | 2018-10-10 17:21 | PN ---
Subjective Date of Service: 10/10/18 Interval History: Pt is poor historian, especially in regards to time of symptom onset. chest pain, relieved with antacid RLQ redness and abdominal pain upon rolling over this AM, 11/09, with improving erythema since refusing [facility] bed offer, wanting to go home unable to get out of bed. has a hospital bed at home. Rekha later called and updated on phone. Family History: Unchanged from Admission Social History: Unchanged from Admission Past Medical History: Unchanged from Admission Objective Active Medications: Acetaminophen (Tylenol Tab*) 650 mg PO Q4H PRN PRN Reason: Fever/Pain 1-08/09 Last Admin: 10/09/18 23:12 Dose: 650 mg Albuterol (Ventolin 2.5 Mg/3 Ml Neb.Damaris*) 2.5 mg INH Q4H PRN PRN Reason: SHORTNESS OF BREATH Last Admin: 10/02/18 19:50 Dose: 2.5 mg Albuterol (Ventolin Hfa Inhaler*) 2 puff INH Q4H PRN PRN Reason: SHORTNESS OF BREATH Last Admin: 10/09/18 08:52 Dose: 2 puff Apixaban (Eliquis*) 5 mg PO BID [facility] Last Admin: 10/10/18 08:46 Dose: 5 mg Atorvastatin Calcium (Lipitor*) 10 mg PO DAILY [facility]; Protocol Last Admin: 10/10/18 08:45 Dose: 10 mg Bupropion HCl (Wellbutrin Xl *) 150 mg PO DAILY [facility] Last Admin: 10/10/18 08:48 Dose: 150 mg Cholecalciferol (Vitamin D Tab*) 1,000 units PO DAILY [facility] Last Admin: 10/10/18 08:47 Dose: 1,000 units Device (Tiotropium Inhaler Device*) 1 each INH .USE w/ SPIRIVA CAPS [facility] Escitalopram Oxalate (Lexapro *) 20 mg PO DAILY [facility] Last Admin: 10/10/18 08:48 Dose: 20 mg Ferrous Sulfate (Ferrous Sulfate Tab*) 325 mg PO DAILY [facility] Last Admin: 10/10/18 08:47 Dose: 325 mg Finasteride (Proscar Tab*) 5 mg PO DAILY [facility] Last Admin: 10/10/18 08:45 Dose: 5 mg Furosemide (Lasix Tab*) 40 mg PO DAILY [facility] Last Admin: 10/10/18 08:45 Dose: 40 mg Ceftriaxone Sodium 1 gm/ (Sodium Chloride) 50 mls @ 200 mls/hr IVPB Q24H [facility] Stop: 10/11/18 14:59 Last Admin: 10/10/18 14:40 Dose: 200 mls/hr Ibuprofen (Motrin Tab*) 600 mg PO TID [facility] Last Admin: 10/10/18 14:40 Dose: 600 mg Lidocaine (Lidoderm 5% Patch*) 1 patch TRANSDERM DAILY [facility] Last Admin: 10/10/18 11:45 Dose: Not Given Melatonin (Melatonin) 3 mg PO QPM PRN PRN Reason: SLEEP Methocarbamol (Robaxin Tab*) 500 mg PO BID [facility] Last Admin: 10/10/18 08:46 Dose: 500 mg Metoprolol Succinate (Toprol Xl Tab*) 25 mg PO DAILY [facility] Last Admin: 10/10/18 08:45 Dose: 25 mg Multi-Ingredient Liniment/Rub (Abimael Rausch*) 1 applic TOPICAL BID [facility] Last Admin: 10/10/18 11:45 Dose: Not Given Multivitamins/Minerals (Theragran/Minerals Tab*) 1 tab PO DAILY [facility] Last Admin: 10/10/18 08:46 Dose: 1 tab Ondansetron HCl (Zofran Inj*) 4 mg IV Q6H PRN PRN Reason: NAUSEA Last Admin: 10/10/18 09:23 Dose: 4 mg Oxycodone HCl (Roxycodone Tab*) 5 mg PO Q6H PRN PRN Reason: Pain 5-10 Last Admin: 10/10/18 08:44 Dose: 5 mg Pantoprazole Sodium (Protonix Tab*) 40 mg PO BID [facility] Last Admin: 10/10/18 08:46 Dose: 40 mg Pharmacy Profile Note (Lidocaine Patch Remove*) 1 note PATCH OFF 2100 [facility] Last Admin: 10/09/18 21:52 Dose: Not Given Polyethylene Glycol/Electrolytes (Miralax*) 17 gm PO DAILY PRN PRN Reason: CONSTIPATION Quetiapine Fumarate (Seroquel Tab*) 50 mg PO BEDTIME [facility] Last Admin: 10/09/18 21:47 Dose: 50 mg Tiotropium [place] (Spiriva Cap.Inh*) 1 cap INH DAILY [facility] Last Admin: 10/10/18 12:55 Dose: 1 cap Vital Signs - 8 hr 10/10/18 10/10/18 10/10/18 11:00 11:06 11:47 Temperature 98.8 F Pulse Rate 80 Respiratory 19 20 16 Rate Blood Pressure 104/68 (mmHg) O2 Sat by Pulse 97 Oximetry 10/10/18 10/10/18 12:56 15:00 Temperature 98.5 F Pulse Rate 81 87 Respiratory 18 24 Rate Blood Pressure 118/67 (mmHg) O2 Sat by Pulse 93 97 Oximetry Oxygen Devices in Use Now: Nasal Cannula Appearance: Chronically ill appearing. Eyes: No Scleral Icterus Ears/Nose/Mouth/Throat: NL Teeth, Lips, Gums Neck: NL Appearance and Movements; NL JVP, Trachea Midline Respiratory: - - rales right base Cardiovascular: NL Sounds; No Murmurs; No JVD, RRR Abdominal: NL Sounds; No Tenderness; No Distention, No Hepatosplenomegaly Extremities: - - trace edema, left knee in brace. Skin: No Rash or Ulcers Neurological: Alert and Oriented x 3 Lines/Tubes/Other Access: Clean, Dry and Intact Osorio Result Diagrams: 10/10/18 06:23 10/10/18 06:23 Additional Lab and Data: Laboratory Results - last 24 hr 10/10/18 10/10/18 10/10/18 06:23 06:23 06:23 WBC 9.4 RBC 4.28 Hgb 13.2 L Hct 40 L MCV 92 MCH 31 MCHC 33 RDW 14 Plt Count 183 MPV 8.1 Sodium 143 Potassium 4.0 Chloride 105 Carbon Dioxide 36 H Anion Gap 2 BUN 19 Creatinine 0.55 L Est GFR ( Amer) 175.2 Est GFR (Non-Af Amer) 144.8 BUN/Creatinine Ratio 34.5 H Glucose 108 H Calcium 9.1 Magnesium 1.8 L Troponin I B-Natriuretic Peptide 144 H 10/10/18 09:18 WBC RBC Hgb Hct MCV MCH MCHC RDW Plt Count MPV Sodium Potassium Chloride Carbon Dioxide Anion Gap BUN Creatinine Est GFR ( Amer) Est GFR (Non-Af Amer) BUN/Creatinine Ratio Glucose Calcium Magnesium Troponin I 0.00 B-Natriuretic Peptide Microbiology and Other Data: Microbiology 10/02/18 13:55 Urine Urine Culture - Final Klebsiella Pneumoniae Assess/Plan/Problems-Billing Assessment: Mr. Sethi is a 78 yo M with PMH of obesity, COPD on home O2, systolic CHF, INDIGO, neurogenic bladder (self-caths at home), CAD, CVA, pAFib on Apixaban, h/o left arm AVM coiling, and recent admission to [facility] from 09/23 to 09/25 after sustaining a fall with c/o left hip pain; who presented to ED with c/o left leg pain and inability to ambulate. Hospitalization complicated by acute respiratory failure requiring BiPAP. Insufficiency fracture of left knee. Gisel - Patient Problems (1) Left tibial fracture Current Visit: Yes Status: Acute Code(s): S82.A - UNSP FRACTURE OF SHAFT OF LEFT TIBIA, INIT FOR CLOS FX SNOMED Code(s): 54289845 Comment: - Left knee pain reported on admission with difficulty bearing weight - MRI yesterday showing subchondral insufficiency fracture at the lateral tibial plateau with associated bone marrow edema - Appreciate Ortho consult - Continue oxycodone - continue hinged knee brace. - Toe touch weight bearing. (2) Chest pain Current Visit: Yes Status: Acute Code(s): R07.9 - CHEST PAIN, UNSPECIFIED SNOMED Code(s): 05987420 Comment: likely epigastric origin/gas. relieved with sodium bicarb & calcium carbonate. EKG with LBBB(chronic), troponin negative. resolved. (3) Afib Current Visit: Yes Status: Deleted Code(s): I48.91 - UNSPECIFIED ATRIAL FIBRILLATION SNOMED Code(s): 15442176 Comment: - Continue Apixaban 5mg BID and Metoprolol succinate 25mg daily (4) COPD (chronic obstructive pulmonary disease) Current Visit: Yes Status: Acute Code(s): J44.9 - CHRONIC OBSTRUCTIVE PULMONARY DISEASE, UNSPECIFIED SNOMED Code(s): 08948986 Comment: - Not in acute exacerbation - Continue albuterol; resume anticholinergic (spiriva, formulary subsititute) (5) Neurogenic bladder Current Visit: Yes Status: Acute Code(s): N31.9 - NEUROMUSCULAR DYSFUNCTION OF BLADDER, UNSPECIFIED SNOMED Code(s): 546692226 Comment: - Usually self caths at home, but does not have supplies so Osorio was placed - Family to bring in home supplies and will remove Osorio at that time (6) INDIGO (obstructive sleep apnea) Current Visit: Yes Status: Acute Code(s): G47.33 - OBSTRUCTIVE SLEEP APNEA ( ADULT) (PEDIATRIC) SNOMED Code(s): 66571262 Comment: - Continue BiPAP (7) BPH (benign prostatic hyperplasia) Current Visit: No Status: Acute Code(s): N40.0 - BENIGN PROSTATIC HYPERPLASIA WITHOUT LOWER URINRY TRACT SYMP SNOMED Code(s): 301538289 Comment: - Continue finasteride (8) Neck pain Current Visit: No Status: Acute Code(s): M54.2 - CERVICALGIA SNOMED Code(s ): 33151837 Comment: Likely related to falls. CT C spine neg for fracture or dislocation. Continue analgesics. stopping robaxin given sleepiness (9) Chronic systolic congestive heart failure Current Visit: Yes Status: Acute Code(s): I50.22 - CHRONIC SYSTOLIC ( CONGESTIVE) HEART FAILURE SNOMED Code(s): 085709832 Comment: - CXR on 10/06 showing pulmonary edema, now resolved - No evidence of exacerbation - Echo in July shows EF 45-50% - Continue metoprolol, furosemide (10) DVT prophylaxis Current Visit: Yes Status: Acute Code(s): CNL9490 - SNOMED Code(s): 372706759 Comment: - Eliquis (11) Depression Current Visit: Yes Status: Acute Code(s): F32.9 - MAJOR DEPRESSIVE DISORDER , SINGLE EPISODE, UNSPECIFIED SNOMED Code(s): 29149136 Comment: - Exacerbated during hospital stay - Psych following - Continue escitalopram, bupropion, Seroquel (12) Full code status Current Visit: Yes Status: Acute Code(s): Z78.9 - OTHER SPECIFIED HEALTH STATUS SNOMED Code(s): 918604162 Comment: (13) UTI (urinary tract infection) Current Visit: Yes Status: Acute Comment: - Urine culture growing 75-100k colonies Klebsiella - High risk for UTI d/t self-cathing - Continue ceftriaxone (day 6/7) Status and Disposition: Inpatient. Anticipate d/c to [facility] vs leaving AMA to home
[2018-10-10] MEDS: Lidocaine Patch REMOVE* 1 NOTE MISC PATCH OFF SCH (21:29)
[2018-10-11] MEDS: Acetaminophen TAB* 325 MG PO PRN (06:04)
[2018-10-11] MEDS: oxyCODONE TAB* 5 MG TAB PO PRN (07:14)
[2018-10-11] MEDS: Tiotropium CAP.INH* CAP.INH/18 MCG (USE ORDER SET !) INH SCH (07:41)
[2018-10-11 08:44] LABS: Hematocrit 39 % (42-52); Hemoglobin 12.7 g/dL (14.0-18.0); Mean Corpuscular HGB Conc 33 g/dL (31-36); Mean Corpuscular Hemoglobin 30 pg (27-31); Mean Corpuscular Volume 92 fL (80-94); Mean Platelet Volume 7.9 fL (7.4-10.4); Platelet Count 178 10^3/uL (150-450); Red Blood Count 4.23 10^6 /uL (4.18-5.48); Red Cell Distribution Width 14 % (10-15); White Blood Count 10.5 10^3/uL (3.5-10.8)
[2018-10-11 09:07] LABS: BUN/Creatinine Ratio 27.3 (8-20); Calcium 9.1 mg/dL (8.6-10.3); EGFR African American 175.2 (>60); EGFR Non-African American 144.8 (>60); Magnesium 1.9 mg/dL (1.9-2.7)
[2018-10-11] MEDS: Escitalopram * 20 MG TABLET PO SCH (09:09)
[2018-10-11] MEDS: Apixaban* 5 MG TAB PO SCH (09:09)
[2018-10-11] MEDS: Ibuprofen TAB* 600 MG PO SCH ×2 (09:09→14:23)
[2018-10-11] MEDS: Ferrous Sulfate TAB* 325 MG PO SCH (09:09)
[2018-10-11] MEDS: Cholecalciferol TAB* 1000 UNITS PO SCH (09:10)
[2018-10-11] MEDS: Pantoprazole TAB * 40 MG TAB PO SCH (09:10)
[2018-10-11] MEDS: Metoprolol Succinate XL TAB* 25 MG PO SCH (09:10)
[2018-10-11] MEDS: Atorvastatin* 10 MG TAB PO SCH (09:10)
[2018-10-11] MEDS: Finasteride TAB* 5 MG PO SCH (09:11)
[2018-10-11] MEDS: Multivitamins/Minerals TAB PO SCH (09:11)
[2018-10-11] MEDS: Furosemide TAB* 40 MG PO SCH (09:11)
[2018-10-11] MEDS: BuPROPion XL* 150 MG TAB.XL PO SCH (09:13)
[2018-10-11] MEDS: Analgesic BALM* 114 GM TOPICAL SCH (09:13)
[2018-10-11] MEDS: Lidocaine PATCH 5%* 1 PATCH TRANSDERM SCH (09:13)
[2018-10-11] MEDS ORDERED: Magnesium CITRATE* 300 ML BTL PO ONE (12:34)
[2018-10-11] MEDS ORDERED: Docusate CAP* 100 MG PO PRN (12:34)
[2018-10-11] MEDS ORDERED: Senna TAB PO SCH (13:00)
[2018-10-11] MEDS: Ondansetron INJ* 2 MG/ML VIAL IV PRN (14:19)
--- NOTE | 2018-10-11 14:31 | DS ---
DISCHARGE SUMMARY: DATE OF ADMISSION: 10/01/18 DATE OF DISCHARGE: 10/11/18 ADMITTING PROVIDER: Areli Macias NP PRIMARY CARE PHYSICIAN: Dr. Paz. ATTENDING PHYSICIAN ON DAY OF DISCHARGE: Tito Parrish MD CONSULTING ORTHOPEDIC SURGEON: Dr. Melchor. CONSULTING PSYCHIATRIST: Dr. Buitrago. CHIEF COMPLAINT: Continued left leg pain causing inability and weakness. PRINCIPAL DIAGNOSES: Insufficiency fracture of the left tibia; severe depression; acute on chronic respiratory failure (hypercapnic and hypoxic), requiring ICU admission. HISTORY OF PRESENT ILLNESS AND HOSPITAL COURSE: Familia Sethi is a 78-year- old male with past medical history of chronic systolic congestive heart failure (EF 45%), COPD, CAD, chronic hypoxic respiratory failure, CVA, paroxysmal atrial fibrillation on Eliquis, left arm AV malformation repair, chronic bilateral lower extremity edema. Please see H and P of Areli Macias for full details, but briefly, the patient has been unable to participate in home PT and was admitted to the hospitalist service for further evaluation. Initially, he was not able to get an MRI of the knee due to unknown information about the AV malformation repair, but this was ultimately obtained and it did show an subtle subchondral insufficiency fracture of the lateral tibial plateau associated with bone marrow edema and was recommended to wear a hinged knee brace and follow up with Orthopedics in 2 weeks. His course was complicated by severe depression and was evaluated by Psychiatry and ultimately started on 2 new medications, Seroquel 50 mg q.h.s. and Lexapro 20 mg daily along with Wellbutrin 150 mg p.o. daily. The Wellbutrin and the Seroquel were new, though Lexapro was old. This course was complicated by transfer to the intensive care unit on 10/06/18 when he developed respiratory failure thought secondary to his pain medications, muscle relaxant. His pCO2 have been 100 and required rescue BiPAP. His x-ray at the time of the rapid response also was consistent with cardiogenic pulmonary edema with bibasilar pleural effusions. He was weaned off the BiPAP by 10/07/18. He was evaluated by Dr. Delvalle on 10/07/18 given history of rectal wall thickening seen on the CT scan. There was performed a flexible sigmoidoscopy with Dr. Mooney on 10/08/18, which was normal, though small polyps could not be ruled out. There is no thick mural mass. He was evaluated by Dr. Anton of the pain clinic and he recommended holding the OxyContin, transition to short-acting oxycodone and recommendation for continued physical therapy. The patient was notably depressed with borderline passive suicidal ideation to this provider and we started on new antidepressants including Wellbutrin 150 mg p.o. daily and antipsychotic Seroquel 50 mg p.o. q.h.s. in addition to his longstanding Lexapro 20 mg daily. He was transferred back to the floor and MRI was eventually obtained which did show the subtle subchondral insufficiency fracture of the left lateral tibial plateau with associated bone marrow edema, so recommended to continue use the hinged knee brace, continue physical therapy. He was wanting to go home , but Physical Therapy continued to need a Gisel for transfers and this was not considered a safe discharge plan. Ultimately, his and he consented to be discharged to [facility] Bed Status for continued mobility with physical therapy and rehabilitation. He does have a history of self cathing at home, but not able to pursue that unless he can stand up. He does have a Osorio catheter here, will need to have a voiding trial within the next week to 10 days at [facility], especially if he is able to stand with physical therapy and resume intermittent self-cathing. He of note also had a Klebsiella pneumoniae urinary tract infection, was treated with 7 days of ceftriaxone ( sensitive to that). DISCHARGE MEDICATIONS: Include: 1. Albuterol 2.5 mg inhaled q.4 hours p.r.n. and 2 puffs inhaled q.4 hours HFA p.r.n. 2. Eliquis 5 mg p.o. b.i.d. 3. Bupropion (Wellbutrin) 150 mg p.o. daily (new). 4. Cholecalciferol 1000 units p.o. daily (new). 5. Colace 100 mg p.o. b.i.d. p.r.n. (new). 6. Lexapro 20 mg p.o. daily. 7. Ferrous sulfate 325 mg p.o. daily. 8. Lasix 40 mg p.o. daily p.r.n. 9. Lidocaine 5% transdermal patch. 10. Metoprolol succinate 25 mg p.o. daily. 12. Multivitamin 1 tab p.o. daily. 13. Omeprazole 20 mg p.o. b.i.d. 14. Crestor 5 mg p.o. daily. 15. Senna 2 tabs p.o. daily (new). 16. Tylenol 650 mg p.o. q.4 hours p.r.n. (new). 17. Avodart 0.5 mg p.o. daily. 18. Ibuprofen 600 mg p.o. t.i.d. p.r.n. (new). 19. Oxycodone 5 mg p.o. q.6 hours p.r.n. (new). This is from the OxyContin 15 mg p.o. b.i.d. which was cancelled. 20. Incruse Ellipta 1 inhale daily. FOLLOWUP: He is to follow up with Dr. Royal Paz and providers at [facility]. Also he should see Dr. Silverio Melchor within 2 weeks of discharge. DIET: Heart healthy, unchanged. DISPOSITION: [facility]. CONDITION: Guarded. TIME SPENT ON DISCHARGE: Forty five minutes. [id number]/CPS #: [id number] MTDD
--- NOTE | 2018-10-11 15:38 | CONSULT ---
Identification - Patient Identification Reason for Psychiatric Consultation: Patient Distress -: Patient is a 78 year old, M admitted on 10/01/18. - MHU Identification Employment Status: Disabled Hx Psychiatric Hospitalization: No History - Objective HPI: Familia is seen in his [facility] room with his Rekha. He remains depressed but denies SI. He and his are originally declining [facility] placement, however, we are joined by Hospitalist Tito Parrish who makes a compelling case for [facility] care, namely, the patient's inability to transport himself safely for bathing, dressing and toileting, among other ADLs. Ultimately, Familia and his provide consent to transfer to [facility] at [facility]. Exam Appearance: Obese Hygiene: Normal Grooming: Fairly Well Kept Psychomotor Activities: Abnormal-Decreased Exhibits Abnormal Movement: No Attitude and Relatedness: Withdrawn Eye Contact: Poor - Speech Quality: Unpressured Latencies: Long Quantity: Terse Patient's Decription of Mood: "Sad" Observed Affect: Constricted Affect Consistent with: Dysphoria Patient's Thought Process: Impoverished Thought Content: Yes Passive Wish, No Suicidal Planning, No Homicidal Ideation, No Paranoid Ideation Experiencing Hallucinations: No, Sensorium is Clear Type of Hallucinations: Visual: No, Auditory: No, Command: No Level of Consciousness: Alert Orientation: Yes Intact, Yes Orientated to Time, Yes Orientated to Place, Yes Orientated to Person Impulse Control: Poor Insight and Judgement: Impaired Impression - Impression Clinical Impression: 78 y.o. , white male with several medical comorbidities, depression and current medical hospitalization for severe pain and gait disturbance in setting of arthritis and small fracture of left knee being seen by psychiatry due to severe, atypical depressive illness. Inpatient DSM-V Dx: F32.9 Merits Inpatient Hospitalization: No BSU: Problem List - Patient Problems (1) MDD (major depressive disorder), single episode with atypical features Current Visit: Yes Status: Acute Priority: Medium Code(s): F32.9 - MAJOR DEPRESSIVE DISORDER, SINGLE EPISODE, UNSPECIFIED SNOMED Code(s): 69154672 Plan - Treatment Plan Treatment Plan: We have added bupropion XL 150mg PO qam and quetiapine 50mg PO qhs to his existing regimen of escitalopram 20mg PO qday. Psychiatry is supportive of plan to discharge to [facility] setting. Will continue to follow. Continued Medication Management: Start Medication Medications: Current Medications Acetaminophen (Tylenol Tab*) 650 mg PO Q4H PRN PRN Reason: Fever/Pain 1-08/09 Last Admin: 10/11/18 06:04 Dose: 650 mg Albuterol (Ventolin 2.5 Mg/3 Ml Neb.Damaris*) 2.5 mg INH Q4H PRN PRN Reason: SHORTNESS OF BREATH Last Admin: 10/02/18 19:50 Dose: 2.5 mg Albuterol (Ventolin Hfa Inhaler*) 2 puff INH Q4H PRN PRN Reason: SHORTNESS OF BREATH Last Admin: 10/09/18 08:52 Dose: 2 puff Apixaban (Eliquis*) 5 mg PO BID [facility] Last Admin: 10/11/18 09:09 Dose: 5 mg Atorvastatin Calcium (Lipitor*) 10 mg PO DAILY [facility]; Protocol Last Admin: 10/11/18 09:10 Dose: 10 mg Bupropion HCl (Wellbutrin Xl *) 150 mg PO DAILY [facility] Last Admin: 10/11/18 09:13 Dose: 150 mg Cholecalciferol (Vitamin D Tab*) 1,000 units PO DAILY [facility] Last Admin: 10/11/18 09:10 Dose: 1,000 units Device (Tiotropium Inhaler Device*) 1 each INH .USE w/ SPIRIVA CAPS [facility] Docusate Sodium (Colace Cap*) 100 mg PO BID PRN PRN Reason: CONSTIPATION Last Admin: 10/11/18 14:27 Dose: 100 mg Escitalopram Oxalate (Lexapro *) 20 mg PO DAILY [facility] Last Admin: 10/11/18 09:09 Dose: 20 mg Ferrous Sulfate (Ferrous Sulfate Tab*) 325 mg PO DAILY [facility] Last Admin: 10/11/18 09:09 Dose: 325 mg Finasteride (Proscar Tab*) 5 mg PO DAILY [facility] Last Admin: 10/11/18 09:11 Dose: 5 mg Furosemide (Lasix Tab*) 40 mg PO DAILY [facility] Last Admin: 10/11/18 09:11 Dose: 40 mg Ibuprofen (Motrin Tab*) 600 mg PO TID [facility] Last Admin: 10/11/18 14:23 Dose: 600 mg Lidocaine (Lidoderm 5% Patch*) 1 patch TRANSDERM DAILY [facility] Last Admin: 10/11/18 09:13 Dose: Not Given Melatonin (Melatonin) 3 mg PO QPM PRN PRN Reason: SLEEP Last Admin: 10/10/18 19:44 Dose: 3 mg Metoprolol Succinate (Toprol Xl Tab*) 25 mg PO DAILY [facility] Last Admin: 10/11/18 09:10 Dose: 25 mg Multi-Ingredient Liniment/Rub (Abimael Rausch*) 1 applic TOPICAL BID [facility] Last Admin: 10/11/18 09:13 Dose: Not Given Multivitamins/Minerals (Theragran/Minerals Tab*) 1 tab PO DAILY [facility] Last Admin: 10/11/18 09:11 Dose: 1 tab Ondansetron HCl (Zofran Inj*) 4 mg IV Q6H PRN PRN Reason: NAUSEA Last Admin: 10/11/18 14:19 Dose: 4 mg Oxycodone HCl (Roxycodone Tab*) 5 mg PO Q6H PRN PRN Reason: Pain 5-1010 Last Admin: 10/11/18 07:14 Dose: 5 mg Pantoprazole Sodium (Protonix Tab*) 40 mg PO BID [facility] Last Admin: 10/11/18 09:10 Dose: 40 mg Pharmacy Profile Note (Lidocaine Patch Remove*) 1 note PATCH OFF 2100 [facility] Last Admin: 10/10/18 21:29 Dose: Not Given Polyethylene Glycol/Electrolytes (Miralax*) 17 gm PO DAILY PRN PRN Reason: CONSTIPATION Last Admin: 10/11/18 09:34 Dose: 17 gm Quetiapine Fumarate (Seroquel Tab*) 50 mg PO BEDTIME [facility] Last Admin: 10/10/18 19:42 Dose: 50 mg Senna (Senokot Tab*) 2 tab PO DAILY [facility] Last Admin: 10/11/18 14:26 Dose: 2 tab Tiotropium [place] (Spiriva Cap.Inh*) 1 cap INH DAILY [facility] Last Admin: 10/11/18 07:41 Dose: 1 cap
[2018-10-11 15:46] VITALS: BP 128/80
== END 2018-10-11 17:30 | disposition swing bed (61) | DRG 542 ==
LOC: ED 13:12 → MED 18:04 → OBSVTOIN 18:04 → MED 20:20 → ICU 10-06 17:47 → MEDTELE 10-08 17:50
PROVIDERS: ADMIT Internal Medicine; ATTEND Internal Medicine
PROC: 5A09357 Assistance with Respiratory Ventilation, Less than 24 Consecutive Hours, Continuous Positive Airway Pressure (ICD-10-PCS; 2018-10-01)
PROC: 0DJD8ZZ Inspection of Lower Intestinal Tract, Via Natural or Artificial Opening Endoscopic (ICD-10-PCS; principal; 2018-10-08)
DX: M84.462A Pathological fracture, left tibia, initial encounter for fracture (principal); J96.21 Acute and chronic respiratory failure with hypoxia; J96.22 Acute and chronic respiratory failure with hypercapnia; I50.22 Chronic systolic (congestive) heart failure; N39.0 Urinary tract infection, site not specified; F32.9 Major depressive disorder, single episode, unspecified; J44.9 Chronic obstructive pulmonary disease, unspecified; I25.10 Atherosclerotic heart disease of native coronary artery without angina pectoris; Z86.73 Personal history of transient ischemic attack (TIA), and cerebral infarction without residual deficits; I48.0 Paroxysmal atrial fibrillation; Z79.01 Long term (current) use of anticoagulants; I11.0 Hypertensive heart disease with heart failure; G47.33 Obstructive sleep apnea (adult) (pediatric); G89.29 Other chronic pain; B96.1 Klebsiella pneumoniae [K. pneumoniae] as the cause of diseases classified elsewhere; N31.9 Neuromuscular dysfunction of bladder, unspecified; Z96.643 Presence of artificial hip joint, bilateral; Z91.041 Radiographic dye allergy status; Z82.49 Family history of ischemic heart disease and other diseases of the circulatory system; Z83.3 Family history of diabetes mellitus; Z80.3 Family history of malignant neoplasm of breast; K21.9 Gastro-esophageal reflux disease without esophagitis; I73.9 Peripheral vascular disease, unspecified; M19.012 Primary osteoarthritis, left shoulder; M54.9 Dorsalgia, unspecified; Z90.49 Acquired absence of other specified parts of digestive tract; N40.1 Benign prostatic hyperplasia with lower urinary tract symptoms; M54.2 Cervicalgia; R07.9 Chest pain, unspecified; E66.01 Morbid (severe) obesity due to excess calories; Z68.33 Body mass index [BMI] 33.0-33.9, adult
CPT/HCPCS: 36415; 36600; 71045; 72131; 80048; 80053; 81003; 81015; 82140; 82306; 82550; 82803; 83735; 83880; 84484; 85025; 85027; 86140; 87077; 87086; 87186; 93005; 94640; 94660; 99284; A9270-GY; G8978-GP-CL; G8978-GP-CM; G8979-GP-CI; G8979-GP-CJ; G8987-GO-CM; G8988-GO-CJ; J0696; J1885; J1940; J2250; J2270; J2405; J3010; J3475

== ENCOUNTER 2018-11-24 11:48 | Inpatient (IN) | payer MEDICARE ==
[2018-11-24] MEDS: Propofol* 100 ML IV SCH ×2 (13:35→22:47)
[2018-11-24] MEDS ORDERED: Albuterol/Ipratropium NEB.SOL* Albuterol 2.5 MG/Ipratropium 0.5 MG 3 ML INH PRN (14:55)
[2018-11-24] MEDS: Lactated Ringers 1000 ML Bag* 1,000 ML IV ONE ×2 (15:10→20:18)
[2018-11-24] MEDS ORDERED: Heparin DRIP 25,000 UNITS(*) 25,000 UNITS/500 ML BAG IV SCH ×2 (15:45→16:15)
[2018-11-24 16:31] LABS: INR 1.09 (0.82-1.09)
[2018-11-24] MEDS ORDERED: fentaNYL* 50 MCG/ML 2 ML VIAL (100 MCG VIAL) ONE (16:31)
[2018-11-24] MEDS: Cefepime 1 GM in Dextrose(*) 1 GM/50 ML BAG IV SCH ×2 (16:40→17:15)
[2018-11-24 16:43] LABS: Albumin 2.8 g/dL (3.2-5.2); Albumin/Globulin Ratio 1.3 (1-3); BUN/Creatinine Ratio 35.1 (8-20); Calcium 8.5 mg/dL (8.6-10.3); EGFR African American 168.2 (>60); Globulin 2.1 g/dL (2-4); Potassium 3.7 mmol/L (3.5-5.0); Total Bilirubin 0.4 mg/dL (0.2-1.0); Total Protein 4.9 g/dL (6.4-8.9)
[2018-11-24] MEDS ORDERED: Heparin VIAL(*) 5000 UNITS/ML VIAL (FIVE THOUSAND) IV SCH (17:00)
[2018-11-24 17:53] LABS: ABS Lymphocytes 1.6 10^3/ul (1.0-4.8); ABS Monocytes 1.3 10^3/ul (0-0.8); ABS Neutrophils 11.9 10^3/ul (1.5-7.7); Hematocrit 34 % (42-52); Hemoglobin 11.2 g/dL (14.0-18.0); Mean Corpuscular HGB Conc 33 g/dL (31-36); Mean Corpuscular Hemoglobin 30 pg (27-31); Mean Corpuscular Volume 93 fL (80-94); Mean Platelet Volume 7.8 fL (7.4-10.4); Platelet Count 186 10^3/uL (150-450); Red Cell Distribution Width 16 % (10-15); White Blood Count 14.8 10^3/uL (3.5-10.8)
[2018-11-24] MEDS: Chlorhexidine MOUTHWASH 0.12%* 15 ML UDC TOPICAL SCH ×3 (17:56→22:32)
[2018-11-24] MEDS ORDERED: fentaNYL* 50 MCG/ML 2 ML VIAL (100 MCG VIAL) IV SLOW PU ONE (18:00)
[2018-11-25] MEDS: Metoprolol Succinate XL TAB* 25 MG PO SCH ×3 (02:14→13:47)
[2018-11-25] MEDS: Chlorhexidine MOUTHWASH 0.12%* 15 ML UDC TOPICAL SCH ×6 (02:14→23:23)
--- NOTE | 2018-11-25 04:07 | HP ---
ADMISSION HISTORY AND PHYSICAL: DATE OF ADMISSION: 11/24/18 REASON FOR ADMISSION: Respiratory failure. HISTORY OF PRESENT ILLNESS: This is a 78-year-old white male with a history of COPD, CHF, atrial fibrillation, history of depression, and chronic pain, who was admitted to [facility] on 11/22/18 with apparent pneumonia in the right lower lobe and was started on azithromycin and Rocephin. Initial blood gases showed a pO2 of 78, pCO2 of 69, and pH of 7.37 on 11/23/18 and the patient developed increasing respiratory distress in the freight associate of and blood gases at that time revealed an increase in pCO2 from 69 to 110 and a decrease in pH from 7.37 to 7.18. The patient was intubated at that time and was transferred to [facility] for further management. Vital signs were stable on transfer. Laboratory evaluations at [facility] showed an elevated white count with no left shift and elevated bicarb, normal renal function and normal lactic acid. Troponins and CK-MBs were also normal. Other medical problems include BPH, neurogenic bladder, obstructive sleep apnea, spinal stenosis, cerebrovascular accident, comminuted fracture of the left tibia , history of left AV malformation repair, multiple fractures of the ribs. OUTPATIENT MEDICATIONS: 1. Eliquis 5 mg twice daily. 2. Lipitor 10 mg daily. 3. Lasix 40 mg daily. 4. Oxycodone 5 mg p.o. q.6 hours p.r.n. severe pain. 5. Toprol-XL 25 mg daily. 6. Robaxin 750 mg 3 times a day. 7. Lexapro 20 mg daily. 8. Ventolin inhaler 2 puffs q.4 hours p.r.n. shortness of breath. 9. Albuterol nebulized solution 2.5 mg inhaled q.4 hours p.r.n. ALLERGIES: Allergic to CONTRAST DYE, which produces urticaria. REVIEW OF SYSTEMS: Unobtainable. PHYSICAL EXAMINATION GENERAL: The patient was unresponsive, but sedated with propofol, was intubated and receiving mechanical ventilation. VITAL SIGNS: Temp was 97 degrees temporal, pulse rate 110, respiratory rate 16 , O2 sat 94% with an FiO2 of 30%. Blood pressure was 92/66. HEENT: Pupils were mid position and reactive. There was no facial asymmetry. Oropharynx was clear. NECK: Supple. LUNGS: Breath sounds are distant, but there were no crackles or wheezes appreciated. CARDIAC: Irregular rhythm. There was a faint 1/6 early systolic murmur heard throughout the precordium. ABDOMEN: Obese, but not distended. EXTREMITIES: Warm and not cyanotic. There was trace edema in the lower extremities. NEUROLOGIC: There are no apparent focal deficits. DIAGNOSTIC STUDIES/LAB DATA: Admission laboratory data from this hospital are pending. Chest x-ray shows an enlarged cardiac silhouette with bilateral pleural effusions and possible infiltrate at both bases, which could represent atelectasis. Endotracheal tube is positioned near the nilda and is retracted. Electrocardiogram is pending. IMPRESSION: This patient has chronic obstructive pulmonary disease with probably chronic CO2 retention. The cause of the acute deterioration is unclear , but could be due to a combination of heart failure, pneumonia (although no evidence of at this point), and pulmonary embolism. MANAGEMENT PLAN: 1. We will continue with mechanical ventilation and add bronchodilators. 2. Check sputum Gram stain and culture to guide antibiotic therapy. 3. Unfortunately could not get a CTA of the chest to work up pulmonary embolism because of the DYE allergy, and V/Q scan will be unrevealing because chest x-ray is abnormal, so I will get an ultrasound of the leg veins to rule out deep vein thrombosis. (The patient will receive full anticoagulation for atrial fibrillation, so the presence of deep vein thrombosis would probably warrant an inferior vena cava filter.) For anticoagulation, we will use heparin drip initially rather than to continue oral anticoagulants. CRITICAL CARE TIME: 60 minutes. The patient's family in and made aware of the patient's current condition and plans for management. [id number]/[facility] #: [id number] [facility]
--- NOTE | 2018-11-25 04:07 | PRO ---
DATE OF PROCEDURE: 11/24/18 - ROOM #ICU-05 PROCEDURE: Insertion of a central venous catheter. INDICATION: This patient was admitted today with acute respiratory failure in need of multiple intravenous medications and a central line was considered necessary. DESCRIPTION OF PROCEDURE: The right internal jugular vein was entered under ultrasound guidance and a 7-Turkish triple-lumen catheter was advanced into the superior vena cava without difficulty. The patient tolerated the procedure well and a post-insertion chest x-ray has been ordered. [id number]/[facility] #: [id number] [facility]
[2018-11-25] MEDS: Cefepime 1 GM in Dextrose(*) 1 GM/50 ML BAG IV SCH ×2 (04:16→16:35)
[2018-11-25] MEDS ORDERED: fentaNYL* 50 MCG/ML 2 ML VIAL (100 MCG VIAL) IV SLOW PU PRN (04:29)
[2018-11-25 05:34] LABS: ABS Lymphocytes 1.9 10^3/ul (1.0-4.8); ABS Monocytes 1.4 10^3/ul (0-0.8); ABS Neutrophils 10.3 10^3/ul (1.5-7.7); Eosinophil % 0.1 %; Hematocrit 33 % (42-52); Hemoglobin 11.3 g/dL (14.0-18.0); Lymphocyte % 14.3 %; Mean Corpuscular HGB Conc 34 g/dL (31-36); Mean Corpuscular Hemoglobin 31 pg (27-31); Mean Corpuscular Volume 91 fL (80-94); Mean Platelet Volume 7.5 fL (7.4-10.4); Platelet Count 177 10^3/uL (150-450); Red Blood Count 3.64 10^6 /uL (4.18-5.48); Red Cell Distribution Width 16 % (10-15); White Blood Count 13.6 10^3/uL (3.5-10.8)
[2018-11-25 05:49] LABS: Calcium 8.8 mg/dL (8.6-10.3); EGFR African American 200.2 (>60); EGFR Non-African American 165.5 (>60); Potassium 3.5 mmol/L (3.5-5.0)
[2018-11-25] MEDS: Propofol* 100 ML IV SCH (06:11)
[2018-11-25] MEDS ORDERED: Perflutren Lipid Microsphere* 3 ML VIAL ONE (07:50)
[2018-11-25] MEDS ORDERED: Furosemide IV* 10 MG/ML VIAL (40 MG) ONE (09:35)
--- NOTE | 2018-11-25 09:36 | ECHO ---
*[facility]* [place] [address] Fax #: [phone] Transthoracic Echocardiogram Patient: Familia Sethi : 1940 Study Date: 11/25/2018 Age: 78 Gender: M HR: 119 bpm Height: 74 in /188 cm BSA: 2.41 m^2 Weight: 253.5 lb /115.2 kg BMI: 32.6 kg/m^2 *Mover: * Carmina Austin [facility] *Referring Physician: * Royal Luz *Reading Physician: * Nickolas Alarcon MD Indications: Resp Insufficiency. History: Atrial fibrillation. Congestive heart failure. Chronic obstructive pulmonary disease. Conclusions Summary: - Very poor echocardiogram images due to body habitus - Left ventricle: Systolic function is reduced. Although no diagnostic regional wall motion abnormality is identified, this possibility cannot be completely excluded on the basis of this study. Unable to estimate ejection fraction due to poor images despites using enhancement agent. - Mitral valve: Not well visualized. - Aortic valve: There is no evidence of stenosis. - Tricuspid valve: There is trace regurgitation. - Pericardium, extracardiac: There is no significant pericardial effusion. - Unable to compare to study of 07/05/18. Study data: Transthoracic echocardiogram. Procedure: Transthoracic echocardiography was performed. Image quality was poor even with Definity enhancement. Intravenous Definity , 2 mls was administered. Complete 2D, spectral Doppler, and color flow Doppler. Location: ICU Patient status: Inpatient. Patient room number: 5. Rhythm: Atrial fibrillation. Findings Left ventricle: The cavity size is normal. Wall thickness is mildly increased. Systolic function is reduced. Although no diagnostic regional wall motion abnormality is identified, this possibility cannot be completely excluded on the basis of this study. Left ventricular diastolic function parameters are indeterminate. Right ventricle: The cavity size is normal. Systolic function is mildly reduced. Left atrium: The atrium is mildly to moderately dilated. Right atrium: Not well visualized. Mitral valve: Not well visualized. There is no significant regurgitation. Aortic valve: The leaflets are normal thickness. There is no evidence of stenosis. There is no significant regurgitation. Tricuspid valve: The leaflets are normal thickness. There is trace regurgitation. Pulmonic valve: Not well visualized. There is no significant regurgitation. Aorta: The aorta is poorly visualized. Pericardium: There is no significant pericardial effusion. Pulmonary arteries: Not well visualized. Systolic pressure can not be accurately estimated. Systemic veins: Inferior vena cava: Not well visualized. Measurements Left ventricle Value Ref Aortic valve Value Ref E', lat brent, TDI 10.1 cm/sec >=10.0 Peak v, S 1.22 m/sec ---- E/e', lat brent, TDI 8 ------- Peak grad, S 6.0 mm Hg ---- LVOT Value Ref Mitral valve Value Ref Peak sujata, S 1.05 m/sec ------- Peak E 0.8 m/sec ---- Peak A 0.03 m/sec ---- Left atrium Value Ref Decel time 167 ms ---- ML dim, A4C 4.8 cm ------- Peak grad, D 2.6 mm Hg ---- SI dim, A4C 5.4 cm ------- Peak E/A ratio 32 ---- Vol/bsa, ES, A/L (H) 45 ml/m^2 16 - 34 Right atrium Value Ref Estimated RAP 8 mm Hg ------- Legend: (L) and (H) edgar values outside specified reference range. Prepared and electronically signed by Nickolas Alarcon MD 11/25/2018 09:35
[2018-11-25] MEDS ORDERED: Furosemide IV* 10 MG/ML VIAL (40 MG) IV ONE (09:41)
[2018-11-25] MEDS: Famotidine SUSP ORALSYR 8 MG/ML G TUBE SCH ×2 (09:44→13:47)
--- NOTE | 2018-11-25 09:51 | PN ---
Date of Service: 11/25/18 Critical Care Services: tolerating PST 5/5 well PST ABG's wnl--baseline hyper-capnea Vital Signs: Temp Pulse Resp BP SpO2 FiO2 98.8 F 121 25 150/91 93 30 11/25/18 07:29 11/25/18 09:30 11/25/18 07:33 11/25/18 09:30 11/25/18 09:30 11/25 08:33 Physical Exam: Gen:intubated. lethargic HEENT:EOMI Lungs: Decreased BS's Cardiac: Irregular, irregular (HR 120's) Abdomen:0bese, Soft, NTP. No rebound or guarding Extremities: 1+ TRACIE Neuro: moving all extremities Fluid Balance (Past 24 Hours): I= O= Net Intake & Output 11/23/18 11/24/18 11/25/18 11/26/18 06:59 06:59 06:59 06:59 Intake Total 1844.8 652.3 0 Output Total 886 380 Balance 1844.8 -233.7 -380 Weight 254 lb 1.6 oz Intake: IV Fluids 1580 545.5 LR 1492 501 NS 88 44.5 IVPB 72 55 ABX 72 55 Medicated IV 192.8 51.8 Heparin 84.8 0 Propofol 108 51.8 Oral 0 Output: Osorio 886 380 ADLs: Labs: Laboratory Results - last 24 hr 11/24/18 11/24/18 11/24/18 16:10 16:10 16:10 WBC RBC Hgb Hct MCV MCH MCHC RDW Plt Count MPV Neut % (Auto) Lymph % (Auto) [place] % (Auto) Eos % (Auto) Baso % (Auto) Absolute Neuts (auto) Absolute Lymphs (auto) Absolute Monos (auto) Absolute Eos (auto) Absolute Basos (auto) Absolute Nucleated RBC Nucleated RBC % INR (Anticoag Therapy) 1.09 APTT 25.0 L Patient Temperature ABG pH ABG pH (Temp Correct) ABG pCO2 ABG pCO2 (Temp Corrct ABG pO2 ABG pO2 (Temp Correct ABG HCO3 ABG O2 Saturation ABG Base Excess Respiration Rate O2 Delivery Device Ventilator Type Vent Mode FiO2 Inspiratory Time PEEP Pressure Support Pressure Control EPAP IPAP BiPAP Sodium 140 Potassium 3.7 Chloride 103 Carbon Dioxide 34 H Anion Gap 3 BUN 20 Creatinine 0.57 L Est GFR ( Amer) 168.2 Est GFR (Non-Af Amer) 139.0 BUN/Creatinine Ratio 35.1 H Glucose 103 H Calcium 8.5 L Total Bilirubin 0.40 AST 22 ALT 23 Alkaline Phosphatase 64 B-Natriuretic Peptide 296 H Total Protein 4.9 L Albumin 2.8 L Globulin 2.1 Albumin/Globulin Ratio 1.3 11/24/18 11/24/18 11/25/18 16:10 23:50 05:25 WBC 14.8 H 13.6 H RBC 3.70 L 3.64 L Hgb 11.2 L 11.3 L Hct 34 L 33 L MCV 93 91 MCH 30 31 MCHC 33 34 RDW 16 H 16 H Plt Count 186 177 MPV 7.8 7.5 Neut % (Auto) 80.2 75.3 Lymph % (Auto) 11.0 14.3 [place] % (Auto) 8.8 10.2 Eos % (Auto) 0.0 0.1 Baso % (Auto) 0.0 0.1 Absolute Neuts (auto) 11.9 H 10.3 H Absolute Lymphs (auto) 1.6 1.9 Absolute Monos (auto) 1.3 H 1.4 H Absolute Eos (auto) 0.0 0.0 Absolute Basos (auto) 0.0 0.0 Absolute Nucleated RBC 0.0 0.0 Nucleated RBC % 0.0 0.0 INR (Anticoag Therapy) APTT 43.6 H Patient Temperature ABG pH ABG pH (Temp Correct) ABG pCO2 ABG pCO2 (Temp Corrct ABG pO2 ABG pO2 (Temp Correct ABG HCO3 ABG O2 Saturation ABG Base Excess Respiration Rate O2 Delivery Device Ventilator Type Vent Mode FiO2 Inspiratory Time PEEP Pressure Support Pressure Control EPAP IPAP BiPAP Sodium Potassium Chloride Carbon Dioxide Anion Gap BUN Creatinine Est GFR ( Amer) Est GFR (Non-Af Amer) BUN/Creatinine Ratio Glucose Calcium Total Bilirubin AST ALT Alkaline Phosphatase B-Natriuretic Peptide Total Protein Albumin Globulin Albumin/Globulin Ratio 11/25/18 11/25/18 05:25 08:31 WBC RBC Hgb Hct MCV MCH MCHC RDW Plt Count MPV Neut % (Auto) Lymph % (Auto) [place] % (Auto) Eos % (Auto) Baso % (Auto) Absolute Neuts (auto) Absolute Lymphs (auto) Absolute Monos (auto) Absolute Eos (auto) Absolute Basos (auto) Absolute Nucleated RBC Nucleated RBC % INR (Anticoag Therapy) APTT Patient Temperature Not Reportable ABG pH 7.45 ABG pH (Temp Correct) Not Reportable ABG pCO2 52 H ABG pCO2 (Temp Corrct Not Reportable ABG pO2 82 ABG pO2 (Temp Correct Not Reportable ABG HCO3 32.8 H ABG O2 Saturation 98.0 ABG Base Excess 10.2 H Respiration Rate Not Reportable O2 Delivery Device Vent Ventilator Type Not Reportable Vent Mode Not Reportable FiO2 30 Inspiratory Time Not Reportable PEEP 5 Pressure Support 10 Pressure Control Not Reportable EPAP Not Reportable IPAP Not Reportable BiPAP Not Reportable Sodium 138 Potassium 3.5 Chloride 101 Carbon Dioxide 34 H Anion Gap 3 BUN 24 Creatinine 0.49 L Est GFR ( Amer) 200.2 Est GFR (Non-Af Amer) 165.5 BUN/Creatinine Ratio 49.0 H Glucose 89 Calcium 8.8 Total Bilirubin AST ALT Alkaline Phosphatase B-Natriuretic Peptide Total Protein Albumin Globulin Albumin/Globulin Ratio Impression: ARF on MV with hypercapnea JAVIER on DOAC Elliquis 5 BID Volume overload OA and users walker at baseline and presently active in rehab 2/2 ambulation issues Chronic back pains on multiple pain medications Plan: F/U ABG on PST Hold Sedation Continue empiric ABX and f/u Cx's Lasix 40 pre-extubation Increase BB for JAVIER and continue DOAC Critical Care Time: 45 minutes
[2018-11-25] MEDS ORDERED: Metoprolol Tartrate IV* 1 MG/ML 5 ML VIAL IV ONE (11:02)
[2018-11-25] MEDS ORDERED: Metoprolol Tartrate IV* 1 MG/ML 5 ML VIAL ONE (11:07)
--- NOTE | 2018-11-25 13:13 | CONSULT ---
Consult Consult: INPATIENT PAIN CONSULTATION Familia Sethi is a 78 year old male. He has a long history of chronic pain and was a patient in the Pain CLinic here in 1999-04. He was on high dose opioids while he was here and was discharged. He saw Dr. Magana in [place] for many years , and later saw Isa Loredo after Dr. Magana left [facility]. He was in the hospital here after he fell and had left hip and thigh pain in late August. He was also here in late September after a fall, then with left knee pain. He has severe OA of his left knee. He also has significant COPD. He can't have an MRI of the left knee because he had a previous coiling of an AVM. In his admission in September, he had been put on his home medications, OxyContin 15 BID and Percocet Q6, but developed hypercapnia and was sent to the ICU. His OXyCOntin was stopped. From there, he went to the swing bed unit at [facility] because of his frequent falls. He was discharged with home services about 10 days ago. He was developing trouble breathing and rhonchorous breath sounds. He went to [facility] November 22 for a chest x-ray and was admitted and tretaed for pneumonia. He developed increasing respiratory difficulty with a pCO2 of 110 on November 24 and was transferred to [facility] ICU. He is on IV cefepime and DuoNeb treatments. He has been complaining of knee pain. I am asked to see him. PAST MEDICAL HISTORY: COPD, INDIGO, Neurogenic bladder, CAD, depression, AVM, atrial fibrillation, CVA Allergies Allergy/AdvReac Type Severity Reaction Status Date / Time Iodinated Contrast Media Allergy Intermediate Rash Verified 10/01/18 13:30 [Iodinated Contrast- Oral and IV Dye] Current Medications Albuterol/Ipratropium (Duoneb (Albuterol 2.5 Mg/Ipratropium 0.5 Mg)) 1 neb INH Q6H PRN PRN Reason: SOB/WHEEZING Apixaban (Eliquis*) 5 mg PO BID [facility] Chlorhexidine Gluconate (Peridex Mouth Wash 0.12%*) 15 ml TOPICAL Q4H [facility] Last Admin: 11/25/18 12:08 Dose: Not Given Famotidine (Pepcid Susp 8mg/Ml) 20 mg G TUBE DAILY [facility] Last Admin: 11/25/18 09:44 Dose: Not Given Fentanyl Citrate (Fentanyl*) 25 mcg IV SLOW PU Q4H PRN PRN Reason: PAIN - SEVERE Last Admin: 11/25/18 05:13 Dose: 25 mcg Propofol (Diprivan*) 100 mls @ 0 mls/hr IV .PER PROTOCOL [facility]; Protocol Last Admin: 11/25/18 06:11 Dose: 10.4 mls/hr Cefepime HCl (Maxipime 1 Gm In Dextrose Duplex (*)) 1 gm in 50 mls @ 100 mls/ hr IV Q12H [facility] Last Admin: 11/25/18 04:16 Dose: 100 mls/hr Metoprolol Succinate (Toprol Xl Tab*) 25 mg PO DAILY [facility] Last Admin: 11/25/18 09:44 Dose: Not Given SOCIAL HISTORY: Lives with in a 2 story house, he sleeps on 1st floor, bathroom on 1st floor. Non smoker, no alcohol Vital Signs Temp Pulse Resp BP Pulse Ox 97.3 F 97 22 101/64 98 11/25/18 12:00 11/25/18 12:01 11/25/18 12:00 11/25/18 12:01 11/25/18 12:01 EXAM: LUNGS: Coarse BS HEART: Irreg rhythm ABDOMEN: Soft EXTREMITIES: Left knee diffusely tender, difficulty getting to neutral NEUROLOGIC: Sleepy but arousable. Moves 4 extremities ASSESSMENT: 1. Internal derangement left knee 2. Chronic low back pain 3. COPD PLAN: I would eliminate the IV fentanyl and try Percocet 5/325 1 every 6 hours PRN. Topical analgesic balm may also be helpful. He may have to get off opioids entirely given his CO2 retention, but he has cut back off all OxyCOntin this year. I will follow
[2018-11-25] MEDS: oxyCODONE/Acetamin 5/325 MG* TAB PO PRN ×2 (13:46→22:41)
[2018-11-25] MEDS: Apixaban* 5 MG TAB PO SCH (20:22)
[2018-11-26] MEDS: Cefepime 1 GM in Dextrose(*) 1 GM/50 ML BAG IV SCH ×2 (03:46→16:38)
[2018-11-26 03:56] LABS: ABS Eosinophils 0.1 10^3/ul (0-0.6); ABS Lymphocytes 1.6 10^3/ul (1.0-4.8); ABS Monocytes 1.1 10^3/ul (0-0.8); ABS Neutrophils 7.4 10^3/ul (1.5-7.7); Hematocrit 35 % (42-52); Hemoglobin 11.3 g/dL (14.0-18.0); Lymphocyte % 15.6 %; Mean Corpuscular HGB Conc 33 g/dL (31-36); Mean Corpuscular Hemoglobin 30 pg (27-31); Mean Corpuscular Volume 93 fL (80-94); Mean Platelet Volume 7.4 fL (7.4-10.4); Platelet Count 162 10^3/uL (150-450); Red Blood Count 3.74 10^6 /uL (4.18-5.48); Red Cell Distribution Width 16 % (10-15); White Blood Count 10.3 10^3/uL (3.5-10.8)
[2018-11-26] MEDS: Chlorhexidine MOUTHWASH 0.12%* 15 ML UDC TOPICAL SCH (03:58)
[2018-11-26 04:11] LABS: BUN/Creatinine Ratio 43.6 (8-20); Blood Urea Nitrogen 24 mg/dL (6-24); CO2 Carbon Dioxide 40 mmol/L (22-32); Calcium 8.4 mg/dL (8.6-10.3); Chloride 102 mmol/L (101-111); EGFR African American 175.2 (>60); EGFR Non-African American 144.8 (>60); Glucose 97 mg/dL (70-100); Potassium 3.6 mmol/L (3.5-5.0); Sodium 142 mmol/L (135-145)
[2018-11-26] MEDS: oxyCODONE/Acetamin 5/325 MG* TAB PO PRN ×3 (05:37→18:18)
--- NOTE | 2018-11-26 10:21 | PN ---
Date of Service: 11/26/18 Critical Care Services: s/p extubation. oxygenation wnl . remains on 2 liters NC and saturations high 90 's diuresed well with lasix yesterday still complaining of diffuse pain--back, head, shoulders Remains in JAVIER. HR still in low 100's. Remains on DOAC Vital Signs: Temp Pulse Resp BP SpO2 FiO2 96.1 F 109 18 130/90 97 35 11/26/18 08:47 11/26/18 08:01 11/26/18 08:01 11/26/18 08:01 11/26/18 08:01 11/26 01:32 Physical Exam: Gen: NAD. Lethargic. AO times 4 Lungs: Decreased BS's Cardiac: irregular, irregular Abdomen: Obese, Soft, NTP. No rebound or guarding Extremities: No TRACIE Neuro: No focal deficits Fluid Balance (Past 24 Hours): I= O= Net Intake & Output 11/24/18 11/25/18 11/26/18 11/27/18 06:59 06:59 06:59 06:59 Intake Total 1844.8 652.3 847.3 Output Total 886 3758 115 Balance 1844.8 -233.7 -2910.7 -115 Weight 254 lb 1.6 oz Intake: IV Fluids 1580 545.5 332.3 ABX 152.2 LR 1492 501 NS 88 44.5 180.1 IVPB 72 55 ABX 72 55 Medicated IV 192.8 51.8 45 Heparin 84.8 0 Propofol 108 51.8 45 Oral 470 Output: Osorio 886 3758 115 Labs: Laboratory Results - last 24 hr 11/26/18 11/26/18 03:41 03:41 WBC 10.3 RBC 3.74 L Hgb 11.3 L Hct 35 L MCV 93 MCH 30 MCHC 33 RDW 16 H Plt Count 162 MPV 7.4 Neut % (Auto) 72.4 Lymph % (Auto) 15.6 [place] % (Auto) 10.8 Eos % (Auto) 1.0 Baso % (Auto) 0.2 Absolute Neuts (auto) 7.4 Absolute Lymphs (auto) 1.6 Absolute Monos (auto) 1.1 H Absolute Eos (auto) 0.1 Absolute Basos (auto) 0.0 Absolute Nucleated RBC 0.0 Nucleated RBC % 0.0 Sodium 142 Potassium 3.6 Chloride 102 Carbon Dioxide 40 H BUN 24 Creatinine 0.55 L Est GFR ( Amer) 175.2 Est GFR (Non-Af Amer) 144.8 BUN/Creatinine Ratio 43.6 H Glucose 97 Calcium 8.4 L Impression: S/P ARF on MV Underlying COPD on home CPAP Poor ADL's at baseline with chronic back pains, knee, and shoulder pains Hx of OA Volume Overload Hx of JAVIER on DOAC PNA Plan: Patient can transfer to floor Continue empiric ABX for PNA Lasix 20 mg times one for volume overload Continue DOAC May need to increase BB for JAVIER. Continue DOAC Pain Mx evaluating patient Need to clarify patients anti-depressants and Seroquel CPAP at night D/W Hospitalist Critical Care Time: 55
[2018-11-26] MEDS ORDERED: Furosemide IV* 10 MG/ML 2 ML VIAL (20 MG) IV ONE (10:22)
[2018-11-26] MEDS: Famotidine SUSP ORALSYR 8 MG/ML G TUBE SCH (11:02)
[2018-11-26] MEDS: Apixaban* 5 MG TAB PO SCH ×2 (11:10→20:26)
[2018-11-26] MEDS: Metoprolol Succinate XL TAB* 25 MG PO SCH (11:10)
[2018-11-26] MEDS: Escitalopram * 20 MG TABLET PO SCH (11:36)
[2018-11-26] MEDS: Famotidine TAB* 20 MG PO SCH (11:36)
[2018-11-26] MEDS: Furosemide IV* 10 MG/ML 2 ML VIAL (20 MG) IV ONE ×2 (13:08→13:17)
[2018-11-26 13:48] LABS: Troponin I 0.02 ng/mL (<0.04)
[2018-11-26] MEDS ORDERED: Magnesium Sulfate 2 GM IV (Premix) IVPB ONE (14:45)
[2018-11-26 15:59] LABS: Magnesium 1.9 mg/dL (1.9-2.7)
[2018-11-26] MEDS ORDERED: KCL premix 10MEQ/50 ML x 1 TIME IV ONE (17:00)
[2018-11-27] MEDS: oxyCODONE/Acetamin 5/325 MG* TAB PO PRN ×4 (01:21→23:57)
[2018-11-27] MEDS: Cefepime 1 GM in Dextrose(*) 1 GM/50 ML BAG IV SCH ×2 (03:54→16:43)
[2018-11-27 05:34] LABS: ABS Eosinophils 0.3 10^3/ul (0-0.6); ABS Lymphocytes 1.4 10^3/ul (1.0-4.8); ABS Monocytes 1.1 10^3/ul (0-0.8); ABS Neutrophils 7.7 10^3/ul (1.5-7.7); Hematocrit 36 % (42-52); Hemoglobin 11.8 g/dL (14.0-18.0); Lymphocyte % 13.3 %; Mean Corpuscular HGB Conc 33 g/dL (31-36); Mean Corpuscular Hemoglobin 31 pg (27-31); Mean Corpuscular Volume 93 fL (80-94); Mean Platelet Volume 7.6 fL (7.4-10.4); Platelet Count 162 10^3/uL (150-450); Red Blood Count 3.82 10^6 /uL (4.18-5.48); Red Cell Distribution Width 16 % (10-15); White Blood Count 10.4 10^3/uL (3.5-10.8)
[2018-11-27 05:58] LABS: BUN/Creatinine Ratio 54.2 (8-20); Calcium 8.5 mg/dL (8.6-10.3); EGFR African American 205.1 (>60); EGFR Non-African American 169.5 (>60); Potassium 3.7 mmol/L (3.5-5.0)
[2018-11-27] MEDS: Furosemide IV* 10 MG/ML VIAL (40 MG) IV SCH (08:14)
[2018-11-27] MEDS: Famotidine TAB* 20 MG PO SCH (08:36)
[2018-11-27] MEDS: Escitalopram * 20 MG TABLET PO SCH (08:36)
[2018-11-27] MEDS: Apixaban* 5 MG TAB PO SCH ×2 (08:36→20:05)
[2018-11-27] MEDS: Metoprolol Succinate XL TAB* 25 MG PO SCH (08:36)
[2018-11-27] MEDS ORDERED: Metoprolol Tartrate TAB* 25 MG PO ONE (10:19)
[2018-11-27] MEDS: Azithromycin 500 mg/250 ml NS 500 MG/250 ML BAG IVPB SCH (10:30)
--- NOTE | 2018-11-27 10:47 | PN ---
Date of Service: 11/27/18 Critical Care Services: oxygenation improved. continue to diurese well in and and out of delirium remains in JAVIER but controlled Vital Signs: Temp Pulse Resp BP SpO2 FiO2 96.5 F 91 22 123/70 98 35 11/27/18 07:40 11/27/18 09:31 11/27/18 09:31 11/27/18 09:31 11/27/18 09:31 11/27 03:42 Physical Exam: Gen: confused. AO times 1 -2 HEENT: EOMI Lungs:Decreased BS's. Some crackles Cardiac: irregular, irregular Abdomen:obese, Soft, NTP. Extremities: No TRACIE Neuro:no focal deficits Fluid Balance (Past 24 Hours): I= O= Net Intake & Output 11/25/18 11/26/18 11/27/18 11/28/18 06:59 06:59 06:59 06:59 Intake Total 652.3 847.3 298.5 Output Total 886 3758 1280 320 Balance -233.7 -2910.7 -981.5 -320 Weight 254 lb 1.6 oz 253 lb 14.4 oz Intake: IV Fluids 545.5 332.3 99.5 ABX 152.2 LR 501 NS 44.5 180.1 99.5 IVPB 55 119 ABX 55 119 NS 0 Medicated IV 51.8 45 80 Heparin 0 Magnesium 55 Potassium 25 Propofol 51.8 45 Oral 470 Output: Urine 30 Osorio 886 3758 1250 320 Labs: Laboratory Results - last 24 hr 11/26/18 11/26/18 11/27/18 03:41 13:15 05:18 WBC RBC Hgb Hct MCV MCH MCHC RDW Plt Count MPV Neut % (Auto) Lymph % (Auto) Elbert % (Auto) Eos % (Auto) Baso % (Auto) Absolute Neuts (auto) Absolute Lymphs (auto) Absolute Monos (auto) Absolute Eos (auto) Absolute Basos (auto) Absolute Nucleated RBC Nucleated RBC % Sodium 142 142 Potassium 3.6 3.7 Chloride 102 101 Carbon Dioxide 40 H 39 H Anion Gap 2 BUN 24 26 H Creatinine 0.55 L 0.48 L Est GFR ( Amer) 175.2 205.1 Est GFR (Non-Af Amer) 144.8 169.5 BUN/Creatinine Ratio 43.6 H 54.2 H Glucose 97 132 H Calcium 8.4 L 8.5 L Magnesium 1.9 TNP Troponin I 0.02 11/27/18 05:18 WBC 10.4 RBC 3.82 L Hgb 11.8 L Hct 36 L MCV 93 MCH 31 MCHC 33 RDW 16 H Plt Count 162 MPV 7.6 Neut % (Auto) 73.4 Lymph % (Auto) 13.3 Elbert % (Auto) 10.1 Eos % (Auto) 3.0 Baso % (Auto) 0.2 Absolute Neuts (auto) 7.7 Absolute Lymphs (auto) 1.4 Absolute Monos (auto) 1.1 H Absolute Eos (auto) 0.3 Absolute Basos (auto) 0.0 Absolute Nucleated RBC 0.0 Nucleated RBC % 0.0 Sodium Potassium Chloride Carbon Dioxide Anion Gap BUN Creatinine Est GFR ( Amer) Est GFR (Non-Af Amer) BUN/Creatinine Ratio Glucose Calcium Magnesium Troponin I Impression: s/p ARF on MV COPD on home CPAP with hx of hypercapnea Volume overload JAVIER Hx on DOAC PNA chronic pain syndrome 2/2 BP's, OA, knee pains with limited ADL's at baseline Depression Plan: Continue cefepime times 5-7 days for PNA Continue to diurese patient - remains on lasix 40 qd JAVIER - remains on BB and DOAC. Cardiology to d/w patient cardioversion f/u Mg and replenish electrolytes pain Mx as per Pain Mx team -though now more delirious started back on SSRI yesterday CPAP at night patient will need placement. patient cannot be cared by at home. Critical Care Time: 56
[2018-11-27] MEDS: Potassium Chloride* LIQUID 20 MEQ/15 ML UDC PO SCH ×2 (10:49→23:57)
[2018-11-27 16:31] LABS: Magnesium 2.2 mg/dL (1.9-2.7)
[2018-11-27] MEDS ORDERED: fentaNYL* 50 MCG/ML 2 ML VIAL (100 MCG VIAL) ONE (17:08)
[2018-11-27] MEDS ORDERED: Midazolam* 1 MG/ML 5 ML VIAL (5 MG) ONE (17:09)
[2018-11-27] MEDS ORDERED: Flumazenil* 0.1 MG/ML 5 ML MDV ONE (17:09)
[2018-11-27] MEDS ORDERED: Naloxone* 0.4 MG/ML 1 ML VIAL ONE (17:10)
--- NOTE | 2018-11-27 17:46 | PN ---
Subjective Date of Service: 11/27/18 Interval History: patient earlier this morning, he was drowzy still post extubation yesterday. he was able to follow simple command. He did not have a very strong inspiratory drive yet. Will implement Bipap prn and at night, will increase toprol to 50 mg given his tacchcyardia still, supplemented his potassium and will give him one dose of diamox to assist with his diuresis (in addition to his lasix) and help with his metabolic alkalosis which is due to his CO2 retention with the hope he can improve ventilation baig. He did well with diamox in the past. Past Medical History: Unchanged from Admission Objective Active Medications: Acetazolamide (Diamox Tab*) 250 mg PO DAILY [facility] Albuterol/Ipratropium (Duoneb (Albuterol 2.5 Mg/Ipratropium 0.5 Mg)) 1 neb INH Q6H PRN PRN Reason: SOB/WHEEZING Last Admin: 11/26/18 13:06 Dose: 1 neb Apixaban (Eliquis*) 5 mg PO BID [facility] Last Admin: 11/27/18 08:36 Dose: 5 mg Escitalopram Oxalate (Lexapro *) 10 mg PO DAILY [facility] Famotidine (Pepcid Tab*) 20 mg PO DAILY [facility] Last Admin: 11/27/18 08:36 Dose: 20 mg Furosemide (Lasix Iv*) 40 mg IV DAILY [facility] Last Admin: 11/27/18 08:14 Dose: 40 mg Cefepime HCl (Maxipime 1 Gm In Dextrose Duplex (*)) 1 gm in 50 mls @ 100 mls/ hr IV Q12H [facility] Last Admin: 11/27/18 16:43 Dose: 100 mls/hr Azithromycin (Zithromax 500 Mg/250 Ml) 500 mg in 250 mls @ 250 mls/hr IVPB Q24H [facility] Last Admin: 11/27/18 10:30 Dose: 250 mls/hr Metoprolol Succinate (Toprol Xl Tab*) 50 mg PO DAILY [facility] Oxycodone/Acetaminophen (Percocet 5/325 Tab*) 1 tab PO Q6H PRN PRN Reason: PAIN - SEVERE Last Admin: 11/27/18 15:26 Dose: 1 tab Potassium Chloride (Potassium Chloride Liquid) 20 meq PO BID [facility] Last Admin: 11/27/18 10:49 Dose: 20 meq Vital Signs - 8 hr 11/27/18 11/27/18 11/27/18 10:00 10:30 11:00 Temperature Pulse Rate 101 87 96 Respiratory 23 24 21 Rate Blood Pressure 127/71 108/64 113/70 (mmHg) O2 Sat by Pulse 97 93 94 Oximetry 11/27/18 11/27/18 11/27/18 11:11 11:30 12:00 Temperature 97.4 F Pulse Rate 92 87 Respiratory 23 23 Rate Blood Pressure 100/67 96/71 (mmHg) O2 Sat by Pulse 95 96 Oximetry 11/27/18 11/27/18 11/27/18 12:30 13:00 13:30 Temperature Pulse Rate 87 88 84 Respiratory 29 21 22 Rate Blood Pressure 116/67 108/58 113/53 (mmHg) O2 Sat by Pulse 96 94 96 Oximetry 11/27/18 11/27/18 11/27/18 14:00 14:30 15:00 Temperature Pulse Rate 91 92 Respiratory 17 20 23 Rate Blood Pressure 118/72 113/77 (mmHg) O2 Sat by Pulse 96 95 Oximetry 11/27/18 11/27/18 11/27/18 15:01 15:20 15:26 Temperature 98.4 F Pulse Rate 90 Respiratory 22 23 Rate Blood Pressure 103/69 (mmHg) O2 Sat by Pulse 95 Oximetry 11/27/18 11/27/18 11/27/18 15:31 16:00 16:01 Temperature Pulse Rate 91 152 106 Respiratory 20 24 26 Rate Blood Pressure 93/50 99/70 (mmHg) O2 Sat by Pulse 95 88 98 Oximetry 11/27/18 16:30 Temperature Pulse Rate Respiratory 23 Rate Blood Pressure 115/72 (mmHg) O2 Sat by Pulse Oximetry Oxygen Devices in Use Now: Nasal Cannula Appearance: awake but remains drowzy Eyes: - - EOMI, Ears/Nose/Mouth/Throat: - - dry oral mucosa Neck: NL Appearance and Movements; NL JVP, Trachea Midline Respiratory: Symmetrical Chest Expansion and Respiratory Effort, Clear to Auscultation Cardiovascular: NL Sounds; No Murmurs; No JVD, No Edema Extremities: - - edema bilateral extremeties Skin: No Rash or Ulcers Result Diagrams: 11/27/18 05:18 11/27/18 05:18 Microbiology and Other Data: Microbiology 11/24/18 15:35 Gram Stain - Final Sputum Trach Sputum Culture - Final YEAST Normal [place] 11/24/18 22:45 Urine Culture - Final Urine No Growth (<1,000 CFU/mL) 11/24/18 13:40 Nasal Screen MRSA (PCR) - Final Nasal Mrsa Not Detected Assess/Plan/Problems-Billing Assessment: 78 y/o male admitted for acute respiratory failure secondary to pneumonaie bibasilar with underlying CHF systollic and OHS and COPD s/p mechanical ventilation, extubated on 11/26/18 - Patient Problems (1) Acute on chronic respiratory failure with hypoxia and hypercapnia Current Visit: No Status: Acute Code(s): J96.21 - ACUTE AND CHRONIC RESPIRATORY FAILURE WITH HYPOXIA; J96.22 - ACUTE AND CHRONIC RESPIRATORY FAILURE WITH HYPERCAPNIA SNOMED Code(s): 43848325889361 Comment: - Multifactorial. Secondary to pneumonaie, CHF and COPD - s/p mechanical intubations. Extubated 11/26/18 and transferred to the hospitalist service today 11/27/18 - He remained drowzy, will keep in in ICU - Will place him on BiPAP, prn and at night - Continue cefepime 1 gm Q12hrs and will add azithromycin 500 mg IV daily - Continue lasix 40 mg IV daily and will add diamox 250 mg IV Q noon. Monitor electrolyes carefully. I increased his potassium to 20 meq bid - Incentive spirometer, out of bed (2) COPD (chronic obstructive pulmonary disease) Current Visit: No Status: Acute Code(s): J44.9 - CHRONIC OBSTRUCTIVE PULMONARY DISEASE, UNSPECIFIED SNOMED Code(s): 04303075 Comment: - Continue albuterol; azithromycin, - bipap - Reassess in am if not better with diuresis (CHF) will implement Predinsone (3) Atrial fibrillation Current Visit: No Status: Acute Code(s): I48.91 - UNSPECIFIED ATRIAL FIBRILLATION SNOMED Code(s): 23726657 Comment: - rate uncontrolled, I increased metoprolol to 50 mg Daily - Continue Eliquis 5 mg bid - s/p cardioversion by Dr. boyd and converted to sinus. Will add multag 400 mg bid as recommended by cardiology (4) CAD (coronary artery disease) Current Visit: No Status: Acute Code(s): I25.10 - ATHSCL HEART DISEASE OF [place] CORONARY ARTERY W/O ANG PCTRS SNOMED Code(s): 32545031 Comment: - Continue metoprolol (5) INDIGO (obstructive sleep apnea) Current Visit: No Status: Acute Code(s): G47.33 - OBSTRUCTIVE SLEEP APNEA ( ADULT) (PEDIATRIC) SNOMED Code(s): 78294603 Comment: - Continue BiPAP (6) DVT prophylaxis Current Visit: No Status: Acute Code(s): AEM4813 - SNOMED Code(s): 291530526 Comment: - [place]
[2018-11-27] MEDS ORDERED: Potassium Chlor TAB* 10 MEQ TAB.ER PO ONE (18:34)
[2018-11-27] MEDS: Dronedarone TAB* 400 MG PO SCH (20:05)
--- NOTE | 2018-11-27 20:18 | CARD ---
CC: Dr. Royal Paz; Dr. Jacob; Hospitalist ELECTRICAL CARDIOVERSION: DATE OF PROCEDURE: 11/27/18 INDICATIONS: Atrial fibrillation and congestive heart failure. The indications, risks, and benefits of the procedure were discussed with the patient in the presence of his . It was verified by calling the pharmacy that he has been on Eliquis since 09/03/18, an d according to the patient's , he has been on it without missing any doses once initiated. DESCRIPTION OF PROCEDURE: The AP patches were applied to the chest wall. Following this, the patient received a total of 4 mg of Versed and 25 mcg of fentanyl for sedation. 150 joules of energy was de livered across the chest wall with successful cardioversion to normal sinus rhythm. The patient was hemodynamically stable throughout the procedure and during the recovery including oxy gen saturations. There were no complications. CONCLUSION: Successful electrical cardioversion from atrial fibrillation to normal sinus rhythm. No complications. [id number]/[facility] #: [id number]
--- NOTE | 2018-11-27 21:51 | CONS ---
CC: Dr. Royal Paz; Dr. Brad Jacob; Hospitalist * CONSULTATION REPORT: DATE OF CONSULTATION: 11/27/18 CHIEF COMPLAINT: Shortness of breath. REASON FOR CONSULTATION: Atrial fibrillation with rapid ventricular rate. HISTORY OF PRESENT ILLNESS: The patient is a 78-year-old gentleman with significant COPD as well as paroxysmal atrial fibrillation and history of congestive heart failure. The patient initially presented to [facility] on 11/22/18, with pneumonia in the right lower lobe and hypoxemia and hypercarbia. He was treated with antibiotics, but developed increasing respiratory distress and was transferred here requiring intubation. Today, the patient has been extubated. He has been in atrial fibrillation with a rapid ventricular rate on the EKGs available to me to review, 11/24/18, , 11/26/18, and 11/27/18. The patient had had severel ED visits and admissions for orthopedic pain, falls , lethargy and confusion. He was ultimately diagosed by MRI with a tibial plateau fracture and was in rehab for this in [place] until very recently. The patient had been off anticoagulation sometimes for AFib (Xarelto) due to hematuria, but the patient's was present during my visit and stated that Dr. Paz had initiated anticoagulation with Eliquis on 09/03/18, and he has been on it faithfully since. Reviewing Dr. Jacob's records from 09/02/18, indicated that he has been in and out of normal sinus rhythm w/PAF. Currently, the patient states it was a bit vague, but feels his breathing is better than on admission. He is not aware of his racing or palpitations. PAST MEDICAL HISTORY: 1. Asthma with secondary COPD. 2. Paroxysmal AFib. 3. Neurogenic bladder. 4. Stroke. 5. Depression. 6. Coronary artery disease (cath 2004 showed 30% occlusion osteal LAD and mid 30% occlusion LAD). 7. Left cephalic vein AVM. 8. Osteoarthritis. PAST SURGICAL HISTORY: Hip replacements bilateral and cholecystectomy. OUTPATIENT MEDICATIONS: Included: 1. Eliquis 5 mg b.i.d. 2. Metoprolol 25 mg a day. 3. Zofran p.r.n. 4. Omeprazole 20 mg a day. 5. Advair Diskus 500/50 one puff b.i.d. 6. Lasix 20 to 40 mg p.r.n. 7. Albuterol nebulizer p.r.n. 8. MultiVites. 9. Ventolin inhaler 2 puffs 4 times a day. 10. PEG. 11. Bethanechol chloride p.r.n. 12. Dutasteride 0.5 mg daily. 13. Aspirin 325 mg a day. 14. Escitalopram oxalate 20 mg a day. 15. Meloxicam 15 mg a day. 16. Incruse Ellipta inhaler 62.5 daily. 17. OxyContin 15 mg q.12 hours. ALLERGIES: He has no known medication allergies, but he is allergic to CONTRAST DYE. FAMILY HISTORY: Positive for coronary artery disease and diabetes in his father. His mother has a history of cancer. SOCIAL HISTORY: The patient never smoked. No history of alcohol or recreational drug abuse. He lives with his . REVIEW OF SYSTEMS: Obtained predominantly from his . He does not remember a lot. He has a history of frequent falls. Had developed hypercapnia with narcotics. Was discharged from a fall and hospitalization in September and then 10 days later presented to [facility] with shortness of breath, rhonchorous breath sounds and was found to have his pneumonia. All other review of systems negative. No chest pain. Chronic orthopnea. Otherwise negative. PHYSICAL EXAM: On exam, no weight in the [facility]; however, in our office note of August 2018, he was 270 pounds, up 20 pounds from prior visit and 6 feet 1 inch. His most recent vital signs showed blood pressure 115/72, pulse irregularly irregular, 95 to 105, respiratory rate 20 to 26, oxygen saturation 98% on 2 L nasal cannula. General Appearance: Stocky and overweight older gentleman, lying about 30 to 40 degrees. Does not appear in respiratory distress, appears chronically ill. Psychologically, pleasant and cooperative, but very vague and not accurate with answering questions. Neurologically, awake, alert, oriented to person and place, but again vague, not oriented to time, improved later in the day. Mucous membranes were moderately moist. Neck was quite thick. I could not appreciate any increased JVP. Breath sounds diminished, anterior posteriorly, and laterally, but I did not appreciate rhonchi, rales or wheezing today. Coronary: Distant S1, S2, irregularly irregular and tachycardic. Abdomen: Quite overweight without any epigastric tenderness and soft. Lower extremity showed mild edema. There is a toe derangement on the right lower extremity. DIAGNOSTIC STUDIES/LAB DATA: Labs from 11/24, white count 14.8, today white count 10.4, hematocrit 36, platelets 162. ABG on 11/25/18, showed pH 7.45, pCO2 of 52, pO2 of 82%. Electrolytes from today sodium 142, potassium 3.7, chloride 101, bicarb 39, BUN 26, creatinine 0.48, glucose 132, calcium 8.5. From 11/24, transaminases normal AST of 22, ALT 25. BNP was 296 on 11/24, albumin 2.8, total protein 4.9. Echocardiogram from 11/24/18, was difficult due to body habitus and unable to evaluate the left ventricular ejection fraction or right ventricular function was estimated mildly depressed. Wall function was good. Echocardiogram done 07/05/18, showed [id number] left ventricular hypertrophy with an ejection fraction of 45% to 50%, low normal right ventricular systolic function, normal valvular function and unable to estimate PA pressure. EKG from our office, 09/02/18, showed atrial fibrillation with a ventricular rate of 101 beats a minute with a left axis deviation, some nonspecific ST changes, and nonspecific QRS widening. He meets voltage criteria for left ventricular hypertrophy. Myoview study ordered for August 2018 was cancelled due to acute medical issues. EKG from 10/10/18, shows atrial fibrillation, 88 beats per minute. Chest x-ray from 11/24/18, showed consistent with cardiogenic pulmonary edema and bibasilar pleural effusions. Chest x-ray from 11/26/18, shows bilateral pleural effusions slightly improved. Lungs were underestimated with small bibasilar infiltrates. IMPRESSION AND PLAN: In summary, Mr. Sethi is a 78-year-old gentleman with paroxysmal atrial fibrillation initially intolerant of Xarelto due to hematuria , but has been tolerating Eliquis well for the last 2 months. Paroxysmal atrial fibrillation. He presented with respiratory decompensation that appears to be from a combination of pneumonia and congestive heart failure probably related to atrial fibrillation with a rapid ventricular rate. As the patient has now been on anticoagulation again and according to Dr. Jacob' s notes has been in paroxysmal atrial fibrillation, I recommended electrical cardioversion. This was discussed with the patient in the presence of his and they are in favor of this, they are hoping it will help to assist with fluid management. I explained that we would likely need to initiate antiarrhythmics following this to maintain sinus rhythm especially with his history of significant asthma and secondary chronic obstructive pulmonary disease and their understanding as we do not have an accurate ejection fraction with his acute status, I am going to recommend Multaq, which has low potency actually and we will try to get an updated echo in sinus rhythm. We will see how he does clinically. I would recommend optimizing his pulmonary care if able. Try to optimize fluid status. Keep potassium between 4 and 4.5. Keep magnesium above 2 and further recommendations will be made pending his clinical course and response to the above treatment. [id number]/[facility] #: [id number] MTDD
[2018-11-28] MEDS: Cefepime 1 GM in Dextrose(*) 1 GM/50 ML BAG IV SCH ×2 (03:53→16:29)
[2018-11-28 05:07] LABS: ABS Eosinophils 0.4 10^3/ul (0-0.6); ABS Lymphocytes 1.6 10^3/ul (1.0-4.8); ABS Monocytes 1.1 10^3/ul (0-0.8); ABS Neutrophils 7.7 10^3/ul (1.5-7.7); Eosinophil % 3.7 %; Hematocrit 35 % (42-52); Hemoglobin 11.2 g/dL (14.0-18.0); Lymphocyte % 14.9 %; Mean Corpuscular HGB Conc 32 g/dL (31-36); Mean Corpuscular Hemoglobin 30 pg (27-31); Mean Corpuscular Volume 95 fL (80-94); Mean Platelet Volume 7.6 fL (7.4-10.4); Platelet Count 159 10^3/uL (150-450); Red Blood Count 3.68 10^6 /uL (4.18-5.48); Red Cell Distribution Width 16 % (10-15); White Blood Count 10.8 10^3/uL (3.5-10.8)
[2018-11-28 05:16] LABS: Blood Urea Nitrogen 27 mg/dL (6-24); Calcium 8.3 mg/dL (8.6-10.3); Chloride 99 mmol/L (101-111); EGFR African American 220.9 (>60); EGFR Non-African American 182.6 (>60); Glucose 98 mg/dL (70-100); Phosphorus 2.8 mg/dL (2.5-5.0); Potassium 4.7 mmol/L (3.5-5.0); Sodium 140 mmol/L (135-145)
[2018-11-28 05:20] LABS: CO2 Carbon Dioxide 43 mmol/L (22-32)
[2018-11-28] MEDS: Furosemide IV* 10 MG/ML VIAL (40 MG) IV SCH (09:00)
[2018-11-28] MEDS: Metoprolol Succinate XL TAB* 50 MG PO SCH (11:24)
[2018-11-28] MEDS: Apixaban* 5 MG TAB PO SCH ×2 (11:27→21:07)
[2018-11-28] MEDS: Dronedarone TAB* 400 MG PO SCH ×2 (11:28→18:29)
[2018-11-28] MEDS: Escitalopram * 20 MG TABLET PO SCH (11:29)
[2018-11-28] MEDS: Potassium Chloride* LIQUID 20 MEQ/15 ML UDC PO SCH ×2 (11:30→21:08)
[2018-11-28] MEDS: Escitalopram * 10 MG TAB PO SCH (12:02)
[2018-11-28] MEDS: Famotidine TAB* 20 MG PO SCH (12:10)
[2018-11-28] MEDS: acetaZOLAMIDE TAB* 250 MG PO SCH ×2 (13:38→18:29)
[2018-11-28] MEDS: oxyCODONE/Acetamin 5/325 MG* TAB PO PRN ×2 (13:38→21:07)
--- NOTE | 2018-11-28 13:56 | PN ---
Subjective Date of Service: 11/28/18 Interval History: patient seen this morning, he is little more awake and indulging in conversation better. His at bedside throughout the interview. He is able to take po but remains very weak with activity. He was not able to get out of bed yesterday. S/p Cardioversion from his Afib yesterday by Dr. Jasmine converted to sinus. I discussed DNR/DNI with patient but his at bedside insisted on him to be full code. Past Medical History: Unchanged from Admission Objective Active Medications: Acetazolamide (Diamox Tab*) 250 mg PO DAILY [facility] Last Admin: 11/28/18 13:38 Dose: 250 mg Acetazolamide (Diamox Tab*) 250 mg PO 1800 [facility] Stop: 12/01/18 17:59 Albuterol/Ipratropium (Duoneb (Albuterol 2.5 Mg/Ipratropium 0.5 Mg)) 1 neb INH Q6H PRN PRN Reason: SOB/WHEEZING Last Admin: 11/26/18 13:06 Dose: 1 neb Apixaban (Eliquis*) 5 mg PO BID [facility] Last Admin: 11/28/18 11:27 Dose: 5 mg Dronedarone (Multaq Tab*) 400 mg PO BID WITH MEALS [facility] Last Admin: 11/28/18 11:28 Dose: 400 mg Escitalopram Oxalate (Lexapro *) 10 mg PO DAILY [facility] Last Admin: 11/28/18 12:02 Dose: 10 mg Famotidine (Pepcid Tab*) 20 mg PO DAILY [facility] Last Admin: 11/28/18 12:10 Dose: 20 mg Furosemide (Lasix Tab*) 40 mg PO DAILY [facility] Cefepime HCl (Maxipime 1 Gm In Dextrose Duplex (*)) 1 gm in 50 mls @ 100 mls/ hr IV Q12H [facility] Last Admin: 11/28/18 03:53 Dose: 100 mls/hr Azithromycin (Zithromax 500 Mg/250 Ml) 500 mg in 250 mls @ 250 mls/hr IVPB Q24H [facility] Last Admin: 11/27/18 10:30 Dose: 250 mls/hr Metoprolol Succinate (Toprol Xl Tab*) 50 mg PO DAILY [facility] Last Admin: 11/28/18 11:24 Dose: 50 mg Oxycodone/Acetaminophen (Percocet 5/325 Tab*) 1 tab PO Q6H PRN PRN Reason: PAIN - SEVERE Last Admin: 11/28/18 13:38 Dose: 1 tab Potassium Chloride (Potassium Chloride Liquid) 20 meq PO BID [facility] Last Admin: 11/28/18 11:30 Dose: 20 meq Vital Signs - 8 hr 11/28/18 11/28/18 11/28/18 06:01 07:00 08:00 Temperature 98.2 F Pulse Rate 67 59 73 Respiratory 20 20 21 Rate Blood Pressure 114/52 127/51 (mmHg) O2 Sat by Pulse 99 99 100 Oximetry 11/28/18 11/28/18 11/28/18 08:01 09:00 09:01 Temperature Pulse Rate 65 70 73 Respiratory 21 19 20 Rate Blood Pressure 128/55 126/69 (mmHg) O2 Sat by Pulse 100 100 98 Oximetry 11/28/18 13:38 Temperature Pulse Rate Respiratory 20 Rate Blood Pressure (mmHg) O2 Sat by Pulse Oximetry Oxygen Devices in Use Now: Nasal Cannula Appearance: awake, alert remains drowsy and weak. He tolerate his Bipap mask for few hours and can not keep it at night Eyes: No Scleral Icterus, - - EOMI Ears/Nose/Mouth/Throat: NL Teeth, Lips, Gums, Mucous Membranes Moist Neck: NL Appearance and Movements; NL JVP, Trachea Midline Respiratory: - - distand breath sound, poor airflow limited to anterior and lateral wall auscultations Abdominal: NL Sounds; No Tenderness; No Distention Extremities: No Edema Neurological: Alert and Oriented x 3 Result Diagrams: 11/28/18 04:47 11/28/18 04:47 Microbiology and Other Data: Microbiology 11/24/18 15:35 Gram Stain - Final Sputum Trach Sputum Culture - Final YEAST Normal [place] 11/24/18 22:45 Urine Culture - Final Urine No Growth (<1,000 CFU/mL) 11/24/18 13:40 Nasal Screen MRSA (PCR) - Final Nasal Mrsa Not Detected Assess/Plan/Problems-Billing Assessment: 78 y/o male admitted for acute respiratory failure secondary to pneumonaie bibasilar with underlying CHF systollic and OHS and COPD s/p mechanical ventilation, extubated on 11/26/18 - Patient Problems (1) Acute on chronic respiratory failure with hypoxia and hypercapnia Current Visit: No Status: Acute Code(s): J96.21 - ACUTE AND CHRONIC RESPIRATORY FAILURE WITH HYPOXIA; J96.22 - ACUTE AND CHRONIC RESPIRATORY FAILURE WITH HYPERCAPNIA SNOMED Code(s): 66992927450570 Comment: - Multifactorial. Secondary to pneumonaie, CHF and COPD - s/p mechanical intubations At [facility] and transfer to [facility] ICU on sunday11/24/18 to the intensivit service. Extubated on 11/26/18 and transferred to the hospitalist service 11/27/18 - Remains weak and unstable to be transferred to the floor as of today 11/28/18 - Encouraged him to comply with BiPAP, prn and at night - I will Continue cefepime 1 gm Q12hrs and will azithromycin 500 mg day #2 IV daily. I would not rule out pneumonaie based on his CXR alone. Once more stable may consider CT of chest - I will Continue lasix 40 mg but will change to PO daily. I did add diamox 250 PO daily on 11/27/18 at noon, I will add diamox 250 mg q 6pm for 3 days. Monitor his HCO3- and electrolyes carefully. I increased his potassium to 20 meq bid - Incentive spirometer, out of bed (2) COPD (chronic obstructive pulmonary disease) Current Visit: No Status: Acute Code(s): J44.9 - CHRONIC OBSTRUCTIVE PULMONARY DISEASE, UNSPECIFIED SNOMED Code(s): 57550565 Comment: - Continue albuterol; azithromycin, - bipap - Reassess in am if not better with diuresis (CHF) will implement Predinsone (3) Atrial fibrillation Current Visit: No Status: Acute Code(s): I48.91 - UNSPECIFIED ATRIAL FIBRILLATION SNOMED Code(s): 98107618 Comment: - s/p cardioversion on 11/27/18 evening. remains in sinus rhythm today - Added Multaq 400 mg bid as recommended by cardiology - Continue Eliquis 5 mg bid (4) CAD (coronary artery disease) Current Visit: No Status: Acute Code(s): I25.10 - ATHSCL HEART DISEASE OF [place] CORONARY ARTERY W/O ANG PCTRS SNOMED Code(s): 81535548 Comment: - Continue metoprolol (5) INDIGO (obstructive sleep apnea) Current Visit: No Status: Acute Code(s): G47.33 - OBSTRUCTIVE SLEEP APNEA ( ADULT) (PEDIATRIC) SNOMED Code(s): 19680506 Comment: - Continue BiPAP (6) Chronic pain Current Visit: No Status: Acute Code(s): G89.29 - OTHER CHRONIC PAIN SNOMED Code(s): 12806835 Comment: - known to me and was hospitalized before and had CAT call for naroctic overdose - Minimizing his narcotic for now (7) Full code status Current Visit: No Status: Acute Code(s): Z78.9 - OTHER SPECIFIED HEALTH STATUS SNOMED Code(s): 530124229 Comment: - discussed with him and at bedside. - His insited on having him full code (8) Neurogenic bladder Current Visit: No Status: Acute Code(s): N31.9 - NEUROMUSCULAR DYSFUNCTION OF BLADDER, UNSPECIFIED SNOMED Code(s): 429753297 Comment: - Usually self caths at home, now he has chronic ellison (9) DVT prophylaxis Current Visit: No Status: Acute Code(s): KPP8949 - SNOMED Code(s): 791775162 Comment: - [place]
[2018-11-28] MEDS: Azithromycin 500 mg/250 ml NS 500 MG/250 ML BAG IVPB SCH (14:55)
[2018-11-29] MEDS: Cefepime 1 GM in Dextrose(*) 1 GM/50 ML BAG IV SCH ×2 (03:57→16:54)
[2018-11-29 04:15] LABS: ABS Eosinophils 0.4 10^3/ul (0-0.6); ABS Lymphocytes 1.8 10^3/ul (1.0-4.8); ABS Monocytes 1.3 10^3/ul (0-0.8); ABS Neutrophils 7.7 10^3/ul (1.5-7.7); Hematocrit 34 % (42-52); Hemoglobin 11.1 g/dL (14.0-18.0); Mean Corpuscular HGB Conc 32 g/dL (31-36); Mean Corpuscular Hemoglobin 30 pg (27-31); Mean Corpuscular Volume 94 fL (80-94); Mean Platelet Volume 7.5 fL (7.4-10.4); Platelet Count 166 10^3/uL (150-450); Red Blood Count 3.63 10^6 /uL (4.18-5.48); Red Cell Distribution Width 16 % (10-15); White Blood Count 11.2 10^3/uL (3.5-10.8)
[2018-11-29 04:27] LABS: BUN/Creatinine Ratio 44.9 (8-20); Blood Urea Nitrogen 22 mg/dL (6-24); CO2 Carbon Dioxide 40 mmol/L (22-32); Calcium 8.7 mg/dL (8.6-10.3); Chloride 98 mmol/L (101-111); EGFR African American 200.2 (>60); EGFR Non-African American 165.5 (>60); Glucose 118 mg/dL (70-100); Magnesium 1.9 mg/dL (1.9-2.7); Phosphorus 2.7 mg/dL (2.5-5.0); Sodium 138 mmol/L (135-145)
[2018-11-29] MEDS ORDERED: Magnesium Sulfate 1 GM IV* 1 GM/100 ML BAG IV ONE (08:18)
[2018-11-29] MEDS: Potassium Chloride* LIQUID 20 MEQ/15 ML UDC PO SCH ×2 (09:29→21:10)
[2018-11-29] MEDS: acetaZOLAMIDE TAB* 250 MG PO SCH ×2 (09:30→18:24)
[2018-11-29] MEDS: Escitalopram * 10 MG TAB PO SCH (09:30)
[2018-11-29] MEDS: Famotidine TAB* 20 MG PO SCH (09:30)
[2018-11-29] MEDS: Furosemide TAB* 40 MG PO SCH (09:30)
[2018-11-29] MEDS: Metoprolol Succinate XL TAB* 50 MG PO SCH (09:30)
[2018-11-29] MEDS: Apixaban* 5 MG TAB PO SCH ×2 (09:30→21:09)
[2018-11-29] MEDS: Dronedarone TAB* 400 MG PO SCH ×2 (09:30→18:24)
[2018-11-29] MEDS: Azithromycin 500 mg/250 ml NS 500 MG/250 ML BAG IVPB SCH (10:44)
[2018-11-29] MEDS: oxyCODONE/Acetamin 5/325 MG* TAB PO PRN (14:20)
--- NOTE | 2018-11-29 15:15 | PN ---
Subjective Date of Service: 11/29/18 Interval History: Patient evaluated in ICU room 5. Patient answers questions, but is slow to respond. He is slightly lethargic, but easily wakens to voice. Denies cp, sob, fever, chills, nausea, vomiting. Past Medical History: Unchanged from Admission Objective Active Medications: Acetazolamide (Diamox Tab*) 250 mg PO DAILY [facility] Last Admin: 11/29/18 09:30 Dose: 250 mg Acetazolamide (Diamox Tab*) 250 mg PO 1800 [facility] Stop: 12/01/18 17:59 Last Admin: 11/28/18 18:29 Dose: 250 mg Albuterol/Ipratropium (Duoneb (Albuterol 2.5 Mg/Ipratropium 0.5 Mg)) 1 neb INH Q6H PRN PRN Reason: SOB/WHEEZING Last Admin: 11/26/18 13:06 Dose: 1 neb Apixaban (Eliquis*) 5 mg PO BID [facility] Last Admin: 11/29/18 09:30 Dose: 5 mg Dronedarone (Multaq Tab*) 400 mg PO BID WITH MEALS [facility] Last Admin: 11/29/18 09:30 Dose: 400 mg Escitalopram Oxalate (Lexapro *) 10 mg PO DAILY [facility] Last Admin: 11/29/18 09:30 Dose: 10 mg Famotidine (Pepcid Tab*) 20 mg PO DAILY [facility] Last Admin: 11/29/18 09:30 Dose: 20 mg Furosemide (Lasix Tab*) 40 mg PO DAILY [facility] Last Admin: 11/29/18 09:30 Dose: 40 mg Cefepime HCl (Maxipime 1 Gm In Dextrose Duplex (*)) 1 gm in 50 mls @ 100 mls/ hr IV Q12H [facility] Last Admin: 11/29/18 03:57 Dose: 100 mls/hr Azithromycin (Zithromax 500 Mg/250 Ml) 500 mg in 250 mls @ 250 mls/hr IVPB Q24H [facility] Last Admin: 11/29/18 10:44 Dose: 250 mls/hr Metoprolol Succinate (Toprol Xl Tab*) 50 mg PO DAILY [facility] Last Admin: 11/29/18 09:30 Dose: 50 mg Oxycodone/Acetaminophen (Percocet 5/325 Tab*) 1 tab PO Q6H PRN PRN Reason: PAIN - SEVERE Last Admin: 11/29/18 14:20 Dose: 1 tab Potassium Chloride (Potassium Chloride Liquid) 20 meq PO BID [facility] Last Admin: 11/29/18 09:29 Dose: 20 meq Vital Signs - 8 hr 11/29/18 11/29/18 11/29/18 07:30 08:00 08:01 Temperature Pulse Rate 63 65 Respiratory 26 23 22 Rate Blood Pressure 114/55 (mmHg) O2 Sat by Pulse 99 99 Oximetry 11/29/18 11/29/18 11/29/18 09:00 09:01 10:00 Temperature Pulse Rate 62 69 Respiratory 23 28 20 Rate Blood Pressure 113/55 (mmHg) O2 Sat by Pulse 95 96 Oximetry 11/29/18 11/29/18 11/29/18 10:01 11:00 11:01 Temperature Pulse Rate 67 71 Respiratory 23 18 24 Rate Blood Pressure 144/67 112/58 (mmHg) O2 Sat by Pulse 97 97 Oximetry 11/29/18 11/29/18 11/29/18 11:41 12:00 12:01 Temperature 97.3 F Pulse Rate 75 75 Respiratory 21 6 Rate Blood Pressure 98/50 (mmHg) O2 Sat by Pulse 98 98 Oximetry 11/29/18 11/29/18 11/29/18 13:00 13:01 14:00 Temperature Pulse Rate 74 71 71 Respiratory 24 23 17 Rate Blood Pressure 140/65 (mmHg) O2 Sat by Pulse 98 97 94 Oximetry 11/29/18 11/29/18 14:01 14:20 Temperature Pulse Rate 78 Respiratory 12 25 Rate Blood Pressure 120/65 (mmHg) O2 Sat by Pulse 98 Oximetry Oxygen Devices in Use Now: Nasal Cannula Appearance: Comfortable, NAD Eyes: No Scleral Icterus Ears/Nose/Mouth/Throat: Clear Oropharnyx, Mucous Membranes Moist Neck: NL Appearance and Movements; NL JVP Respiratory: Symmetrical Chest Expansion and Respiratory Effort, Clear to Auscultation Cardiovascular: NL Sounds; No Murmurs; No JVD, RRR, - - Trace to +1 edema Abdominal: NL Sounds; No Tenderness; No Distention Lymphatic: No Cervical Adenopathy Neurological: NL Muscle Strength and Tone, - - Alert to self and place. Nutrition: Taking PO's Result Diagrams: 11/29/18 04:01 11/29/18 04:01 Additional Lab and Data: Laboratory Results - last 24 hr 11/29/18 11/29/18 04:01 04:01 WBC 11.2 H RBC 3.63 L Hgb 11.1 L Hct 34 L MCV 94 MCH 30 MCHC 32 RDW 16 H Plt Count 166 MPV 7.5 Neut % (Auto) 68.5 Lymph % (Auto) 16.0 [place] % (Auto) 11.4 Eos % (Auto) 4.0 Baso % (Auto) 0.1 Absolute Neuts (auto) 7.7 Absolute Lymphs (auto) 1.8 Absolute Monos (auto) 1.3 H Absolute Eos (auto) 0.4 Absolute Basos (auto) 0.0 Absolute Nucleated RBC 0.0 Nucleated RBC % 0.0 Sodium 138 Potassium 4.0 Chloride 98 L Carbon Dioxide 40 H BUN 22 Creatinine 0.49 L Est GFR ( Amer) 200.2 Est GFR (Non-Af Amer) 165.5 BUN/Creatinine Ratio 44.9 H Glucose 118 H Calcium 8.7 Phosphorus 2.7 Magnesium 1.9 Microbiology and Other Data: Microbiology 11/24/18 15:35 Sputum Trach Gram Stain - Final 11/24/18 15:35 Sputum Trach Sputum Culture - Final YEAST Normal [place] 11/24/18 22:45 Urine Urine Culture - Final No Growth (<1,000 CFU/mL) 11/24/18 13:40 Nasal Nasal Screen MRSA (PCR) - Final Mrsa Not Detected Assess/Plan/Problems-Billing Assessment: 78 y/o male admitted for acute respiratory failure secondary to pneumonaie bibasilar with underlying CHF systollic and OHS and COPD s/p mechanical ventilation, extubated on 11/26/18 - Patient Problems (1) Acute on chronic respiratory failure with hypoxia and hypercapnia SNOMED Code(s): 89408676805714 Comment: - Per nursing patient used Bipap all night last night and is more alert today. Continue to encouraged him to comply with BiPAP, prn and at night - Resp failure is multifactorial. Secondary to pneumonaie, CHF and COPD - s/p mechanical intubations At [facility] and transfer to [facility] ICU on sunday11/24/18 to the intensivit service. Extubated on 11/26/18 and transferred to the hospitalist service 11/27/18 - Continue cefepime 1 gm Q12hrs and will azithromycin 500 mg day #2 IV daily. Once more stable may consider CT of chest - I will Continue lasix 40 mg PO daily. Diamox 250 PO daily added on 11/27/18 at noon. Yesterday diamox 250 mg q 6pm for 3 days added. Continue to monitor his HCO3- and electrolyes carefully. Potassium increased to to 20 meq bid - Incentive spirometer, out of bed (2) Atrial fibrillation Comment: - Sinus with frequent PACs - s/p cardioversion on 11/27/18 evening. - Continue Multaq 400 mg bid as recommended by cardiology - Continue Eliquis 5 mg bid (3) CAD (coronary artery disease) Comment: - Continue metoprolol (4) COPD (chronic obstructive pulmonary disease) Comment: - Continue albuterol; azithromycin, - Bipap (5) Chronic pain Comment: - Dr Anton consulting - Had CAT call for naroctic overdose - Minimizing his narcotic for now (6) Neurogenic bladder Comment: - Usually self caths at home, now he has chronic ellison (7) INDIGO (obstructive sleep apnea) Comment: - Continue BiPAP (8) DVT prophylaxis Comment: - Eliquis (9) Full code status Comment: - Patient is Full Code - Previous provider discussed with him and at bedside and insited on having him full code Status and Disposition: Inpatient.
[2018-11-30] MEDS: Cefepime 1 GM in Dextrose(*) 1 GM/50 ML BAG IV SCH ×2 (03:18→16:30)
[2018-11-30 04:26] LABS: ABS Eosinophils 0.4 10^3/ul (0-0.6); ABS Lymphocytes 1.7 10^3/ul (1.0-4.8); ABS Monocytes 1.4 10^3/ul (0-0.8); ABS Neutrophils 9.2 10^3/ul (1.5-7.7); Eosinophil % 3.4 %; Hematocrit 33 % (42-52); Hemoglobin 10.8 g/dL (14.0-18.0); Lymphocyte % 13.3 %; Mean Corpuscular HGB Conc 33 g/dL (31-36); Mean Corpuscular Hemoglobin 30 pg (27-31); Mean Corpuscular Volume 94 fL (80-94); Mean Platelet Volume 7.5 fL (7.4-10.4); Platelet Count 164 10^3/uL (150-450); Red Blood Count 3.56 10^6 /uL (4.18-5.48); Red Cell Distribution Width 16 % (10-15); White Blood Count 12.8 10^3/uL (3.5-10.8)
[2018-11-30 04:37] LABS: BUN/Creatinine Ratio 35.6 (8-20); Calcium 8.7 mg/dL (8.6-10.3); EGFR African American 220.9 (>60); EGFR Non-African American 182.6 (>60); Magnesium 1.9 mg/dL (1.9-2.7); Potassium 4.1 mmol/L (3.5-5.0)
[2018-11-30] MEDS: Escitalopram * 10 MG TAB PO SCH (09:06)
[2018-11-30] MEDS: Apixaban* 5 MG TAB PO SCH ×2 (09:06→20:55)
[2018-11-30] MEDS: Furosemide TAB* 40 MG PO SCH (09:06)
[2018-11-30] MEDS: Potassium Chloride* LIQUID 20 MEQ/15 ML UDC PO SCH ×2 (09:06→20:55)
[2018-11-30] MEDS: Famotidine TAB* 20 MG PO SCH (09:06)
[2018-11-30] MEDS: Metoprolol Succinate XL TAB* 50 MG PO SCH (09:06)
[2018-11-30] MEDS: Dronedarone TAB* 400 MG PO SCH ×2 (09:07→16:30)
[2018-11-30] MEDS: acetaZOLAMIDE TAB* 250 MG PO SCH (09:07)
[2018-11-30] MEDS: Azithromycin 500 mg/250 ml NS 500 MG/250 ML BAG IVPB SCH (12:37)
[2018-11-30 13:18] LABS: Albumin 3.1 g/dL (3.2-5.2); Albumin/Globulin Ratio 1.3 (1-3); Globulin 2.3 g/dL (2-4); Indirect Bilirubin 0.5 mg/dL (0.3-1.0); Total Bilirubin 0.6 mg/dL (0.2-1.0); Total Protein 5.4 g/dL (6.4-8.9)
[2018-11-30] MEDS ORDERED: predniSONE TAB* 50 MG PO ONE ×2 (14:47→21:00)
--- NOTE | 2018-11-30 18:51 | PN ---
Subjective Date of Service: 11/30/18 Interval History: Assessed this morning while in bed. He responds to voice, but quickly closes his eye. With eye closed he continues to follow simple commands and answer yes or no questions. Later this afternoon reassessed and more alert and engaging well. Past Medical History: Unchanged from Admission Objective Active Medications: Albuterol/Ipratropium (Duoneb (Albuterol 2.5 Mg/Ipratropium 0.5 Mg)) 1 neb INH Q6H PRN PRN Reason: SOB/WHEEZING Last Admin: 11/26/18 13:06 Dose: 1 neb Apixaban (Eliquis*) 5 mg PO BID [facility] Last Admin: 11/30/18 09:06 Dose: 5 mg Diphenhydramine HCl (Benadryl Po*) 50 mg PO ONCE ONE Stop: 12/01/18 09:01 Dronedarone (Multaq Tab*) 400 mg PO BID WITH MEALS [facility] Last Admin: 11/30/18 16:30 Dose: 400 mg Escitalopram Oxalate (Lexapro *) 10 mg PO DAILY [facility] Last Admin: 11/30/18 09:06 Dose: 10 mg Famotidine (Pepcid Tab*) 20 mg PO DAILY [facility] Last Admin: 11/30/18 09:06 Dose: 20 mg Furosemide (Lasix Tab*) 40 mg PO DAILY [facility] Last Admin: 11/30/18 09:06 Dose: 40 mg Cefepime HCl (Maxipime 1 Gm In Dextrose Duplex (*)) 1 gm in 50 mls @ 100 mls/ hr IV Q12H [facility] Last Admin: 11/30/18 16:30 Dose: 100 mls/hr Azithromycin (Zithromax 500 Mg/250 Ml) 500 mg in 250 mls @ 250 mls/hr IVPB Q24H [facility] Last Admin: 11/30/18 12:37 Dose: 250 mls/hr Metoprolol Succinate (Toprol Xl Tab*) 50 mg PO DAILY [facility] Last Admin: 11/30/18 09:06 Dose: 50 mg Oxycodone/Acetaminophen (Percocet 5/325 Tab*) 1 tab PO Q6H PRN PRN Reason: PAIN - SEVERE Last Admin: 11/29/18 14:20 Dose: 1 tab Potassium Chloride (Potassium Chloride Liquid) 20 meq PO BID [facility] Last Admin: 11/30/18 09:06 Dose: 20 meq Prednisone (Deltasone Tab*) 50 mg PO ONCE ONE Stop: 11/30/18 21:01 Prednisone (Deltasone Tab*) 50 mg PO ONCE ONE Stop: 12/01/18 03:01 Prednisone (Deltasone Tab*) 50 mg PO ONCE ONE Stop: 12/01/18 09:01 Vital Signs - 8 hr 11/30/18 11/30/18 11/30/18 11:00 12:00 12:02 Temperature Pulse Rate 73 69 Respiratory 14 27 Rate Blood Pressure (mmHg) O2 Sat by Pulse 99 99 Oximetry 11/30/18 11/30/18 11/30/18 13:00 13:57 14:00 Temperature Pulse Rate 67 64 65 Respiratory 28 26 26 Rate Blood Pressure 110/56 (mmHg) O2 Sat by Pulse 98 96 96 Oximetry 11/30/18 11/30/18 11/30/18 14:41 15:01 15:31 Temperature 98.1 F Pulse Rate 66 65 Respiratory 24 27 Rate Blood Pressure 121/60 (mmHg) O2 Sat by Pulse 98 97 Oximetry 11/30/18 11/30/18 11/30/18 16:00 16:01 17:00 Temperature Pulse Rate 72 67 Respiratory 24 25 29 Rate Blood Pressure 121/60 (mmHg) O2 Sat by Pulse 98 98 Oximetry 11/30/18 11/30/18 11/30/18 17:08 18:00 18:01 Temperature Pulse Rate 69 63 69 Respiratory 31 31 20 Rate Blood Pressure 139/72 114/65 (mmHg) O2 Sat by Pulse 98 98 97 Oximetry Oxygen Devices in Use Now: Nasal Cannula Appearance: Comfortable, NAD Eyes: No Scleral Icterus Ears/Nose/Mouth/Throat: Clear Oropharnyx, Mucous Membranes Moist Neck: NL Appearance and Movements; NL JVP Respiratory: Symmetrical Chest Expansion and Respiratory Effort, Clear to Auscultation Cardiovascular: NL Sounds; No Murmurs; No JVD, RRR, No Edema Abdominal: NL Sounds; No Tenderness; No Distention Lymphatic: No Cervical Adenopathy Extremities: No Clubbing, Cyanosis Neurological: NL Muscle Strength and Tone Result Diagrams: 11/30/18 04:07 11/30/18 04:07 Additional Lab and Data: Laboratory Results - last 24 hr 11/30/18 11/30/18 11/30/18 04:07 04:07 10:35 WBC 12.8 H RBC 3.56 L Hgb 10.8 L Hct 33 L MCV 94 MCH 30 MCHC 33 RDW 16 H Plt Count 164 MPV 7.5 Neut % (Auto) 71.8 Lymph % (Auto) 13.3 [place] % (Auto) 11.1 Eos % (Auto) 3.4 Baso % (Auto) 0.4 Absolute Neuts (auto) 9.2 H Absolute Lymphs (auto) 1.7 Absolute Monos (auto) 1.4 H Absolute Eos (auto) 0.4 Absolute Basos (auto) 0.0 Absolute Nucleated RBC 0.0 Nucleated RBC % 0.0 Patient Temperature Not Reportable ABG pH 7.37 ABG pH (Temp Correct) Not Reportable ABG pCO2 57 H ABG pCO2 (Temp Corrct Not Reportable ABG pO2 149 H ABG pO2 (Temp Correct Not Reportable ABG HCO3 29.6 ABG O2 Saturation 99.9 H ABG Base Excess 6.0 H Respiration Rate Not Reportable O2 Delivery Device 3 lpm nc Ventilator Type Not Reportable Vent Mode Not Reportable FiO2 Not Reportable Inspiratory Time Not Reportable PEEP Not Reportable Pressure Support Not Reportable Pressure Control Not Reportable EPAP Not Reportable IPAP Not Reportable BiPAP Not Reportable Sodium 136 Potassium 4.1 Chloride 100 L Carbon Dioxide 34 H Anion Gap 2 BUN 16 Creatinine 0.45 L Est GFR ( Amer) 220.9 Est GFR (Non-Af Amer) 182.6 BUN/Creatinine Ratio 35.6 H Glucose 111 H Calcium 8.7 Magnesium 1.9 Total Bilirubin 0.60 Direct Bilirubin 0.10 Indirect Bilirubin 0.5 AST 16 ALT 15 Alkaline Phosphatase 75 Ammonia Total Protein 5.4 L Albumin 3.1 L Globulin 2.3 Albumin/Globulin Ratio 1.3 TSH 11/30/18 11/30/18 10:35 10:35 WBC RBC Hgb Hct MCV MCH MCHC RDW Plt Count MPV Neut % (Auto) Lymph % (Auto) [place] % (Auto) Eos % (Auto) Baso % (Auto) Absolute Neuts (auto) Absolute Lymphs (auto) Absolute Monos (auto) Absolute Eos (auto) Absolute Basos (auto) Absolute Nucleated RBC Nucleated RBC % Patient Temperature ABG pH ABG pH (Temp Correct) ABG pCO2 ABG pCO2 (Temp Corrct ABG pO2 ABG pO2 (Temp Correct ABG HCO3 ABG O2 Saturation ABG Base Excess Respiration Rate O2 Delivery Device Ventilator Type Vent Mode FiO2 Inspiratory Time PEEP Pressure Support Pressure Control EPAP IPAP BiPAP Sodium Potassium Chloride Carbon Dioxide Anion Gap BUN Creatinine Est GFR ( Amer) Est GFR (Non-Af Amer) BUN/Creatinine Ratio Glucose Calcium Magnesium Total Bilirubin Direct Bilirubin Indirect Bilirubin AST ALT Alkaline Phosphatase Ammonia 72 H Total Protein Albumin Globulin Albumin/Globulin Ratio TSH 1.09 Microbiology and Other Data: Microbiology 11/24/18 15:35 Gram Stain - Final Sputum Trach Sputum Culture - Final YEAST Normal [place] 11/24/18 22:45 Urine Culture - Final Urine No Growth (<1,000 CFU/mL) 11/24/18 13:40 Nasal Screen MRSA (PCR) - Final Nasal Mrsa Not Detected Assess/Plan/Problems-Billing Assessment: 78 y/o male admitted for acute respiratory failure secondary to pneumonaie bibasilar with underlying CHF systollic and OHS and COPD s/p mechanical ventilation, extubated on 11/26/18 - Patient Problems (1) Acute on chronic respiratory failure with hypoxia and hypercapnia SNOMED Code(s): 67602981754328 Comment: - Repeat ABG given lethary again this morning. Will adjust Bipap settings and titrate supplement O2 down. Reassess LOC tomorrow morning. - Resp failure is multifactorial. Secondary to pneumonaie, CHF and COPD - s/p mechanical intubations At [facility] [place] and transfer to [facility] ICU on sunday11/24/18 to the intensivit service. Extubated on 11/26/18 and transferred to the hospitalist service 11/27/18 - Continue cefepime 1 gm Q12hrs and will azithromycin 500 mg day IV daily. - I will Continue lasix 40 mg PO daily. Stopped Diamox - Incentive spirometer, out of bed (2) Lung mass Comment: - Right suprahilar mass and narrowing of right upper lobe bronchus. CT with contrast ordered for tomorrow for further evaluation as patient needs to be premedicated given allergy - CT also revealed left lower lobe atelectasis versus consolidation (3) Atrial fibrillation Comment: - Sinus with frequent PACs - s/p cardioversion on 11/27/18 evening. - Continue Multaq 400 mg bid as recommended by cardiology - Continue Eliquis 5 mg bid (4) CAD (coronary artery disease) Comment: - Continue metoprolol (5) COPD (chronic obstructive pulmonary disease) Comment: - Continue albuterol; azithromycin, - Bipap (6) Chronic pain Comment: - Dr Anton consulting - Had CAT call for naroctic overdose - Minimizing his narcotic for now (7) Neurogenic bladder Comment: - Usually self caths at home, now he has chronic ellison (8) INDIGO (obstructive sleep apnea) Comment: - Continue BiPAP (9) DVT prophylaxis Comment: - Eliquis (10) Full code status Comment: - Patient is Full Code - Previous provider discussed with him and at bedside and insited on having him full code Status and Disposition: Inpatient.
[2018-11-30] MEDS ORDERED: NS 0.9% 250 ML* 250 ML IV SCH (22:00)
[2018-12-01] MEDS ORDERED: predniSONE TAB* 50 MG PO ONE ×2 (03:00→09:00)
[2018-12-01] MEDS: Cefepime 1 GM in Dextrose(*) 1 GM/50 ML BAG IV SCH ×2 (03:45→16:33)
[2018-12-01 04:14] LABS: ABS Monocytes 0.3 10^3/ul (0-0.8); ABS Neutrophils 9.6 10^3/ul (1.5-7.7); Eosinophil % 0.1 %; Hematocrit 36 % (42-52); Lymphocyte % 8.9 %; Mean Corpuscular HGB Conc 34 g/dL (31-36); Mean Corpuscular Hemoglobin 31 pg (27-31); Mean Corpuscular Volume 92 fL (80-94); Mean Platelet Volume 7.4 fL (7.4-10.4); Platelet Count 186 10^3/uL (150-450); Red Cell Distribution Width 16 % (10-15); White Blood Count 10.9 10^3/uL (3.5-10.8)
[2018-12-01 04:23] LABS: BUN/Creatinine Ratio 36.4 (8-20); Calcium 9.3 mg/dL (8.6-10.3); EGFR African American 226.7 (>60); EGFR Non-African American 187.4 (>60); Magnesium 1.8 mg/dL (1.9-2.7)
[2018-12-01] MEDS ORDERED: Magnesium Sulfate 1 GM IV* 1 GM/100 ML BAG IV ONE (04:37)
[2018-12-01] MEDS ORDERED: Magnesium Sulfate 2 GM IV* 2 GM/50 ML BAG IVPB ONE (08:12)
[2018-12-01] MEDS: Escitalopram * 10 MG TAB PO SCH (08:23)
[2018-12-01] MEDS: Metoprolol Succinate XL TAB* 50 MG PO SCH (08:23)
[2018-12-01] MEDS: Apixaban* 5 MG TAB PO SCH ×2 (08:23→20:33)
[2018-12-01] MEDS: Furosemide TAB* 40 MG PO SCH (08:23)
[2018-12-01] MEDS: Famotidine TAB* 20 MG PO SCH (08:24)
[2018-12-01] MEDS: Potassium Chloride* LIQUID 20 MEQ/15 ML UDC PO SCH ×2 (08:24→20:34)
[2018-12-01] MEDS: Dronedarone TAB* 400 MG PO SCH ×2 (08:26→17:54)
[2018-12-01] MEDS ORDERED: diPHENhydraMINE PO* 50 MG PO ONE (09:00)
--- NOTE | 2018-12-01 11:01 | ECHO ---
*[facility]* [place] [address] Fax #: [phone] Transthoracic Echocardiogram Patient: Familia Sethi : 1940 Study Date: 12/01/2018 Age: 78 Gender: M HR: 91 bpm Height: 74 in /188 cm BSA: 2.43 m^2 Weight: 259.5 lb /117.9 kg BMI: 33.4 kg/m^2 *Circus Performer: * Colleen Velazquez [facility] *Referring Physician: * Luz Maria Irizarry *Reading Physician: * Nickolas Alarcon MD Indications: Congestive Heart Failure. History: Atrial fibrillation. Congestive heart failure. Chronic obstructive pulmonary disease. Conclusions Summary: - Left ventricle: The cavity size is normal. Wall thickness is moderately to severely increased. Systolic function is mildly to moderately reduced. The estimated ejection fraction is 40-45%. Mild diffuse hypokinesis. - Right ventricle: Systolic function is mildly reduced. - Mitral valve: There is mild regurgitation. - Aortic valve: There is no evidence of stenosis. There is no significant regurgitation. - Tricuspid valve: There is trace regurgitation. Unable to estimate PASP. - Pericardium, extracardiac: There is no significant pericardial effusion. - Compared to study of 11/25/18, the images are better. Left ventricle function able to be evaluated Study data: Transthoracic echocardiogram. Procedure: Transthoracic echocardiography was performed. Image quality was poor. The study was technically limited due to poor acoustic window availability and COPD. Complete 2D, spectral Doppler, and color flow Doppler. Location: Bedside. Patient status: Inpatient. Patient room number: ICU-5. Rhythm: Normal sinus rhythm with PVC's. Findings Left ventricle: The cavity size is normal. Wall thickness is moderately to severely increased. Systolic function is mildly to moderately reduced. The estimated ejection fraction is 40-45%. Mild diffuse hypokinesis. There is no consistent Doppler evidence of clinically significant diastolic dysfunction. Right ventricle: The cavity size is mildly dilated. Systolic function is mildly reduced. Left atrium: The atrium is mildly dilated. Right atrium: The atrium is moderately dilated. Mitral valve: The leaflets are mildly thickened. There is no evidence of stenosis. There is mild regurgitation. Aortic valve: The valve is trileaflet. The leaflets are mildly thickened. There is no evidence of stenosis. There is no significant regurgitation. Tricuspid valve: The leaflets are normal thickness. There is no evidence of stenosis. There is trace regurgitation. Pulmonic valve: The leaflets are normal thickness. There is no evidence of stenosis. There is trace regurgitation. Aorta: Aortic root: The aortic root is appears normal. Ascending aorta: The ascending aorta is mildly dilated. Aortic arch: The aortic arch is poorly visualized. Pericardium: A prominent pericardial fat pad is present. There is no significant pericardial effusion. Pulmonary arteries: The main pulmonary artery is normal-sized. Systemic veins: Inferior vena cava: Not well visualized. Measurements Left ventricle Value Ref Right atrium Value Ref SIERRA, LAX (L) 3.7 cm 4.2 - 5.8 SI dim, ES (H) 6.4 cm 3.4 - 5.3 ESD, LAX 3.1 cm 2.5 - 4.0 ML dim, ES, A4C 4.2 cm 2.6 - 4.4 FS, LAX (L) 24 % 25 - 43 SI dim, ES, A4C (H) 6.4 cm 3.4 - 5.3 PW, ED, LAX (H) 1.7 cm 0.6 - 1.0 Estimated RAP 8 mm Hg --------- FS 26 % 25 - 43 PW, ED (H) 1.7 cm 0.6 - 1.0 Aortic valve Value Ref E', lat brent, TDI (L) 7.3 cm/sec >=10.0 Brent diam, ED 2.2 cm ---- ----- E/e', lat brent, 9 Peak v, S 1.34 m/sec ------- -- TDI VTI, S 19.4 cm --------- E', med brent, TDI (L) 3.8 cm/sec >=7.0 Mean grad, S 3.0 mm Hg ---- ----- E/e', med brent, 18 Peak grad, S 7.0 mm Hg ------- -- TDI LVOT/AV, VTI ratio 0.82 --------- E', avg, TDI 5.6 cm/sec E/e', avg, TDI 12 <=14 Mitral valve Value Ref Peak E 0.68 m/sec --------- LVOT Value Ref Peak A 0.8 m/sec --------- Peak sujata, S 0.91 m/sec Decel time 211 ms --------- VTI, S 16.0 cm Peak E/A ratio 0.9 --------- Mean grad, S 1 mm Hg Pulmonic valve Value Ref Ventricular septum Value Ref Peak v, S 1.15 m/sec --------- IVS, ED (H) 1.6 cm 0.6 - 1.0 Peak grad, S 5.0 mm Hg --------- Right ventricle Value Ref Aortic root Value Ref SIERRA, LAX 5.2 cm Root diam 3.7 cm <4.5 SIERRA minor ax, (H) 4.7 cm 1.9 - 3.5 A4C mid Ascending aorta Value Ref AAo AP diam, S 3.9 cm --------- Left atrium Value Ref AP dim, ES (H) 4.60 cm 3.00 - 4.00 ML dim, A4C 5.1 cm SI dim, A4C 5.6 cm Vol/bsa, ES, 1-p 28 ml/m^2 12 - 37 A4C Vol/bsa, ES, A/L (H) 35 ml/m^2 16 - 34 Legend: (L) and (H) edgar values outside specified reference range. Prepared and electronically signed by Nickolas Alarcon MD 12/01/2018 11:00
[2018-12-01] MEDS ORDERED: Iohexol 300* (CONTRAST) 10 ML SDV IV ONE (11:55)
[2018-12-01] MEDS: Azithromycin 500 mg/250 ml NS 500 MG/250 ML BAG IVPB SCH (12:50)
[2018-12-01] MEDS: oxyCODONE/Acetamin 5/325 MG* TAB PO PRN (14:30)
--- NOTE | 2018-12-01 17:43 | PN ---
Subjective Date of Service: 12/01/18 Interval History: Patient assessed this morning in ICU Rm 5. Patient more alert this morning as he woke with me entering the room and did not need significant verbal stimuli. Patient reported he felt well this morning. Denies sob, cp, palpitations. Later this morning call received from RN that patient was having difficulty breathing, sounded rhonchorous, and was requesting BiPaP. Per nursing BiPap was placed for approx one hour and patient improved. This afternoon patient was reassessed and he was mildly drowsy. It should be noted he received Benadryl late this morning for pre medication for CT due to contrast. Past Medical History: Unchanged from Admission Objective Active Medications: Albuterol/Ipratropium (Duoneb (Albuterol 2.5 Mg/Ipratropium 0.5 Mg)) 1 neb INH Q6H PRN PRN Reason: SOB/WHEEZING Last Admin: 11/26/18 13:06 Dose: 1 neb Apixaban (Eliquis*) 5 mg PO BID [facility] Last Admin: 12/01/18 08:23 Dose: 5 mg Dronedarone (Multaq Tab*) 400 mg PO BID WITH MEALS [facility] Last Admin: 12/01/18 08:26 Dose: 400 mg Escitalopram Oxalate (Lexapro *) 10 mg PO DAILY [facility] Last Admin: 12/01/18 08:23 Dose: 10 mg Famotidine (Pepcid Tab*) 20 mg PO DAILY [facility] Last Admin: 12/01/18 08:24 Dose: 20 mg Furosemide (Lasix Tab*) 40 mg PO DAILY [facility] Last Admin: 12/01/18 08:23 Dose: 40 mg Metoprolol Succinate (Toprol Xl Tab*) 50 mg PO DAILY [facility] Last Admin: 12/01/18 08:23 Dose: 50 mg Oxycodone/Acetaminophen (Percocet 5/325 Tab*) 1 tab PO Q6H PRN PRN Reason: PAIN - SEVERE Last Admin: 12/01/18 14:30 Dose: 1 tab Potassium Chloride (Potassium Chloride Liquid) 20 meq PO BID [facility] Last Admin: 12/01/18 08:24 Dose: 20 meq Vital Signs - 8 hr 12/01/18 12/01/18 12/01/18 10:00 10:01 11:00 Temperature Pulse Rate 86 87 71 Respiratory 29 28 28 Rate Blood Pressure 138/85 (mmHg) O2 Sat by Pulse 90 91 93 Oximetry 12/01/18 12/01/18 12/01/18 11:01 11:11 12:00 Temperature Pulse Rate 77 99 Respiratory 34 30 18 Rate Blood Pressure 128/64 (mmHg) O2 Sat by Pulse 93 93 Oximetry 12/01/18 12/01/18 12/01/18 12:14 13:00 13:01 Temperature Pulse Rate 84 84 Respiratory 34 29 23 Rate Blood Pressure (mmHg) O2 Sat by Pulse 95 90 Oximetry 12/01/18 12/01/18 12/01/18 13:57 14:00 14:01 Temperature Pulse Rate Respiratory 30 26 31 Rate Blood Pressure 147/81 148/84 (mmHg) O2 Sat by Pulse Oximetry 12/01/18 12/01/18 12/01/18 14:30 15:00 15:01 Temperature Pulse Rate 89 86 Respiratory 32 31 31 Rate Blood Pressure 150/87 (mmHg) O2 Sat by Pulse 96 94 Oximetry 12/01/18 12/01/18 12/01/18 16:00 16:34 17:00 Temperature 97.7 F Pulse Rate 79 80 Respiratory 26 27 Rate Blood Pressure 118/71 (mmHg) O2 Sat by Pulse 98 95 Oximetry 12/01/18 17:01 Temperature Pulse Rate 73 Respiratory 28 Rate Blood Pressure 137/60 (mmHg) O2 Sat by Pulse 96 Oximetry Oxygen Devices in Use Now: Nasal Cannula Appearance: Comfortable, NAD Eyes: No Scleral Icterus Ears/Nose/Mouth/Throat: Clear Oropharnyx, Mucous Membranes Moist Neck: NL Appearance and Movements; NL JVP Respiratory: Symmetrical Chest Expansion and Respiratory Effort, - - Sporadic rhonchi. Slight decrease in aeration Cardiovascular: NL Sounds; No Murmurs; No JVD, RRR, No Edema Abdominal: NL Sounds; No Tenderness; No Distention Lymphatic: No Cervical Adenopathy Extremities: No Clubbing, Cyanosis Skin: No Rash or Ulcers Neurological: NL Muscle Strength and Tone - Alert. Does not engage in orientation questions Nutrition: Taking PO's Result Diagrams: 12/01/18 03:47 12/01/18 03:47 Additional Lab and Data: Laboratory Results - last 24 hr 12/01/18 12/01/18 03:47 03:47 WBC 10.9 H RBC 3.90 L Hgb 12.0 L Hct 36 L MCV 92 MCH 31 MCHC 34 RDW 16 H Plt Count 186 MPV 7.4 Neut % (Auto) 88.4 Lymph % (Auto) 8.9 [place] % (Auto) 2.5 Eos % (Auto) 0.1 Baso % (Auto) 0.1 Absolute Neuts (auto) 9.6 H Absolute Lymphs (auto) 1.0 Absolute Monos (auto) 0.3 Absolute Eos (auto) 0.0 Absolute Basos (auto) 0.0 Absolute Nucleated RBC 0.0 Nucleated RBC % 0.0 Sodium 137 Potassium 4.0 Chloride 102 Carbon Dioxide 30 Anion Gap 5 BUN 16 Creatinine 0.44 L Est GFR ( Amer) 226.7 Est GFR (Non-Af Amer) 187.4 BUN/Creatinine Ratio 36.4 H Glucose 142 H Calcium 9.3 Magnesium 1.8 L Microbiology and Other Data: Microbiology 11/24/18 15:35 Gram Stain - Final Sputum Trach Sputum Culture - Final YEAST Normal [place] 11/24/18 22:45 Urine Culture - Final Urine No Growth (<1,000 CFU/mL) 11/24/18 13:40 Nasal Screen MRSA (PCR) - Final Nasal Mrsa Not Detected Assess/Plan/Problems-Billing Assessment: 78 y/o male admitted for acute respiratory failure secondary to pneumonaie bibasilar with underlying CHF systollic and OHS and COPD s/p mechanical ventilation, extubated on 11/26/18 - Patient Problems (1) Acute on chronic respiratory failure with hypoxia and hypercapnia SNOMED Code(s): 90567481745375 Comment: - Patient had BiPaP with increased settings last evening and he was more alert this morning on initial assessment. Continue BiPaP at increased settings - ABG repeated yesterday given lethary and Bipap settings increased. Supplement O2 titrated down. - Resp failure is multifactorial. Secondary to pneumonaie, CHF and COPD - s/p mechanical intubations At [facility] and transfer to [facility] ICU on sunday11/24/18 to the intensivit service. Extubated on 11/26/18 and transferred to the hospitalist service 11/27/18 - Completed 7 days of cefepime 1 gm and 5 days azithromycin 500 mg day. - Continue lasix 40 mg PO daily. - Diamox stopped yesterday. HCO3 29.6 and Carbon Dioxide 30. - Incentive spirometer, out of bed (2) Lung mass Comment: - Repeat CT with contrast today revealed mass seen on CT without is likely atelectasis (3) Atrial fibrillation Comment: - Sinus with frequent PACs - s/p cardioversion on 11/27/18 evening. - Continue Multaq 400 mg bid as recommended by cardiology - Continue Eliquis 5 mg bid (4) CAD (coronary artery disease) Comment: - Continue metoprolol (5) COPD (chronic obstructive pulmonary disease) Comment: - Continue albuterol; azithromycin, - Bipap (6) Chronic pain Comment: - Dr Anton consulting - Had CAT call for naroctic overdose - Minimizing his narcotic for now (7) Neurogenic bladder Comment: - Usually self caths at home, now he has chronic elliosn (8) INDIGO (obstructive sleep apnea) Comment: - Continue BiPAP (9) DVT prophylaxis Comment: - Eliquis (10) Full code status Comment: - Patient is Full Code - Previous provider discussed with him and at bedside and insited on having him full code Status and Disposition: Inpatient. Discussed plan of care with today who will consider palliative care. Palliative care consult ordered. Attending: Odette Coppola
[2018-12-02 06:34] LABS: Hematocrit 36 % (42-52); Hemoglobin 11.9 g/dL (14.0-18.0); Mean Corpuscular HGB Conc 34 g/dL (31-36); Mean Corpuscular Hemoglobin 31 pg (27-31); Mean Corpuscular Volume 91 fL (80-94); Mean Platelet Volume 7.2 fL (7.4-10.4); Platelet Count 208 10^3/uL (150-450); Red Blood Count 3.88 10^6 /uL (4.18-5.48); Red Cell Distribution Width 16 % (10-15); White Blood Count 14.3 10^3/uL (3.5-10.8)
[2018-12-02 07:01] LABS: Albumin 3.3 g/dL (3.2-5.2); Albumin/Globulin Ratio 1.4 (1-3); BUN/Creatinine Ratio 38.6 (8-20); Calcium 9.2 mg/dL (8.6-10.3); EGFR African American 226.7 (>60); EGFR Non-African American 187.4 (>60); Globulin 2.4 g/dL (2-4); Magnesium 1.8 mg/dL (1.9-2.7); Potassium 3.4 mmol/L (3.5-5.0); Total Bilirubin 0.8 mg/dL (0.2-1.0); Total Protein 5.7 g/dL (6.4-8.9)
[2018-12-02 07:26] LABS: ABS Basophils 0.1 10^3/ul (0-0.2); ABS Lymphocytes 2.2 10^3/ul (1.0-4.8); ABS Monocytes 1.6 10^3/ul (0-0.8); ABS Neutrophils 10.5 10^3/ul (1.5-7.7); Eosinophil % 0.1 %; Lymphocyte % 15.2 %
[2018-12-02] MEDS ORDERED: Magnesium Sulfate 2 GM IV* 2 GM/50 ML BAG IVPB ONE (08:35)
[2018-12-02] MEDS ORDERED: KCL 20 MEQ/100 ML IVPREMIX* 20 MEQ/100 ML BAG IV SCH (09:00)
[2018-12-02] MEDS: Metoprolol Succinate XL TAB* 50 MG PO SCH (09:29)
[2018-12-02] MEDS: Dronedarone TAB* 400 MG PO SCH ×2 (09:29→17:18)
[2018-12-02] MEDS: Famotidine TAB* 20 MG PO SCH (09:29)
[2018-12-02] MEDS: Apixaban* 5 MG TAB PO SCH ×2 (09:29→22:28)
[2018-12-02] MEDS: Escitalopram * 10 MG TAB PO SCH (09:29)
[2018-12-02] MEDS: Furosemide TAB* 40 MG PO SCH (09:29)
[2018-12-02] MEDS: Potassium Chloride* LIQUID 20 MEQ/15 ML UDC PO SCH (09:43)
[2018-12-02] MEDS: Potassium Chlor TAB* 20 MEQ TAB.ER PO SCH ×2 (09:46→22:29)
--- NOTE | 2018-12-02 10:09 | PN ---
Subjective Date of Service: 12/02/18 Interval History: Per nursing patient refused BiPap last evening and was called. This morning patient agreed to BiPap and is currently resting with BiPap in place. Past Medical History: Unchanged from Admission Objective Active Medications: Albuterol/Ipratropium (Duoneb (Albuterol 2.5 Mg/Ipratropium 0.5 Mg)) 1 neb INH Q6H PRN PRN Reason: SOB/WHEEZING Last Admin: 11/26/18 13:06 Dose: 1 neb Apixaban (Eliquis*) 5 mg PO BID [facility] Last Admin: 12/02/18 09:29 Dose: 5 mg Dronedarone (Multaq Tab*) 400 mg PO BID WITH MEALS [facility] Last Admin: 12/02/18 09:29 Dose: 400 mg Escitalopram Oxalate (Lexapro *) 10 mg PO DAILY [facility] Last Admin: 12/02/18 09:29 Dose: 10 mg Famotidine (Pepcid Tab*) 20 mg PO DAILY [facility] Last Admin: 12/02/18 09:29 Dose: 20 mg Furosemide (Lasix Tab*) 40 mg PO DAILY [facility] Last Admin: 12/02/18 09:29 Dose: 40 mg Potassium Chloride (Potassium Chloride 20 Meq/100 Ml Ivpremix*) 20 meq in 100 mls @ 50 mls/hr IV Q2H [facility] Stop: 12/02/18 10:59 Last Admin: 12/02/18 09:29 Dose: 50 mls/hr Metoprolol Succinate (Toprol Xl Tab*) 50 mg PO DAILY [facility] Last Admin: 12/02/18 09:29 Dose: 50 mg Oxycodone/Acetaminophen (Percocet 5/325 Tab*) 1 tab PO Q6H PRN PRN Reason: PAIN - SEVERE Last Admin: 12/01/18 14:30 Dose: 1 tab Potassium Chloride (Klor Con Er Tab*) 20 meq PO BID [facility] Last Admin: 12/02/18 09:46 Dose: 20 meq Vital Signs - 8 hr 12/02/18 12/02/18 04:00 08:00 Temperature 97.7 F 97.4 F Pulse Rate 70 79 Respiratory 20 24 Rate Blood Pressure 138/44 148/70 (mmHg) O2 Sat by Pulse 94 99 Oximetry Oxygen Devices in Use Now: BiPAP Appearance: Comfortable, NAD Eyes: No Scleral Icterus Ears/Nose/Mouth/Throat: Clear Oropharnyx, Mucous Membranes Moist Neck: NL Appearance and Movements; NL JVP Respiratory: Symmetrical Chest Expansion and Respiratory Effort, - - Sporadic rhonchi Abdominal: NL Sounds; No Tenderness; No Distention Lymphatic: No Cervical Adenopathy Extremities: No Edema, No Clubbing, Cyanosis Skin: No Rash or Ulcers Neurological: NL Muscle Strength and Tone Result Diagrams: 12/02/18 06:26 12/02/18 06:26 Additional Lab and Data: Laboratory Results - last 24 hr 12/02/18 12/02/18 06:26 06:26 WBC 14.3 H RBC 3.88 L Hgb 11.9 L Hct 36 L MCV 91 MCH 31 MCHC 34 RDW 16 H Plt Count 208 MPV 7.2 L Neut % (Auto) 73.1 Lymph % (Auto) 15.2 Person % (Auto) 11.2 Eos % (Auto) 0.1 Baso % (Auto) 0.4 Absolute Neuts (auto) 10.5 H Absolute Lymphs (auto) 2.2 Absolute Monos (auto) 1.6 H Absolute Eos (auto) 0.0 Absolute Basos (auto) 0.1 Absolute Nucleated RBC 0.0 Nucleated RBC % 0.0 Sodium 138 Potassium 3.4 L Chloride 103 Carbon Dioxide 31 Anion Gap 4 BUN 17 Creatinine 0.44 L Est GFR ( Amer) 226.7 Est GFR (Non-Af Amer) 187.4 BUN/Creatinine Ratio 38.6 H Glucose 97 Calcium 9.2 Magnesium 1.8 L Total Bilirubin 0.80 AST 17 ALT 16 Alkaline Phosphatase 94 Total Protein 5.7 L Albumin 3.3 Globulin 2.4 Albumin/Globulin Ratio 1.4 Microbiology and Other Data: Microbiology 11/24/18 15:35 Gram Stain - Final Sputum Trach Sputum Culture - Final YEAST Normal [place] 11/24/18 22:45 Urine Culture - Final Urine No Growth (<1,000 CFU/mL) 11/24/18 13:40 Nasal Screen MRSA (PCR) - Final Nasal Mrsa Not Detected Assess/Plan/Problems-Billing Assessment: 78 y/o male admitted for acute respiratory failure secondary to pneumonaie bibasilar with underlying CHF systollic and OHS and COPD s/p mechanical ventilation, extubated on 11/26/18 - Patient Problems (1) Leukocytosis Comment: - Mild elevation - Fever documented this afternoon. In addition, nurse reports patient now has diarrhea and complaining of abd pain, therefore, CDiff and Stool Cultures ordered - It should be noted patient aslo received Prednisone yesterday to premedicate for CT given allergy (2) Acute on chronic respiratory failure with hypoxia and hypercapnia SNOMED Code(s): 66892007044137 Comment: - Refused to wear BiPap last night. Is wearing it this morning. - Patient had BiPaP with increased settings previously due to repeat ABG results and patient's lethargy first thing in the morning - Resp failure is multifactorial. Secondary to pneumonaie, CHF and COPD - S/P mechanical intubations At [facility] and transfer to [facility] ICU on sunday11/24/18 to the intensivit service. Extubated on 11/26/18 and transferred to the hospitalist service 11/27/18 - Completed 7 days of cefepime 1 gm and 5 days azithromycin 500 mg day. - Continue lasix 40 mg PO daily. - Diamox stopped 11/30. HCO3 29.6 and Carbon Dioxide 30. - Incentive spirometer, out of bed (3) Lung mass Comment: - Repeat CT with contrast today revealed mass seen on CT without is likely atelectasis (4) Atrial fibrillation Comment: - Sinus on tele - s/p cardioversion on 11/27/18 evening. - Continue Multaq 400 mg bid as recommended by cardiology - Continue Eliquis 5 mg bid - Monitoring and replacing electrolytes as needed to keep K above 4 and Mag above 2 (5) CAD (coronary artery disease) Comment: - Continue metoprolol (6) COPD (chronic obstructive pulmonary disease) Comment: - Continue albuterol - Bipap (7) Chronic pain Comment: - Dr Anton consulting - Had CAT call for naroctic overdose - Minimizing his narcotic for now (8) Neurogenic bladder Comment: - Usually self caths at home, now he has chronic ellison (9) INDIGO (obstructive sleep apnea) Comment: - Continue BiPAP (10) DVT prophylaxis Comment: - Eliquis (11) Full code status Comment: - Patient is Full Code - Previous provider discussed with him and at bedside and insited on having him full code Status and Disposition: Inpatient. Discussed plan of care with today who will consider palliative care. Palliative care consult ordered. Attending: Odette Coppola
[2018-12-02] MEDS: Acetaminophen TAB* 325 MG PO PRN (22:29)
[2018-12-03 06:05] LABS: ABS Eosinophils 0.1 10^3/ul (0-0.6); ABS Lymphocytes 2.3 10^3/ul (1.0-4.8); ABS Monocytes 1.2 10^3/ul (0-0.8); ABS Neutrophils 7.7 10^3/ul (1.5-7.7); Hematocrit 37 % (42-52); Hemoglobin 12.4 g/dL (14.0-18.0); Lymphocyte % 20.3 %; Mean Corpuscular HGB Conc 33 g/dL (31-36); Mean Corpuscular Hemoglobin 31 pg (27-31); Mean Corpuscular Volume 93 fL (80-94); Mean Platelet Volume 7.1 fL (7.4-10.4); Platelet Count 207 10^3/uL (150-450); Red Blood Count 4.01 10^6 /uL (4.18-5.48); Red Cell Distribution Width 17 % (10-15); White Blood Count 11.3 10^3/uL (3.5-10.8)
[2018-12-03 06:25] LABS: BUN/Creatinine Ratio 38.5 (8-20); EGFR Non-African American 154.5 (>60)
[2018-12-03] MEDS: Acetaminophen TAB* 325 MG PO PRN ×2 (06:30→21:19)
[2018-12-03] MEDS: Lidocaine PATCH 5%* 1 PATCH TRANSDERM SCH (09:39)
[2018-12-03] MEDS: Furosemide TAB* 40 MG PO SCH (09:40)
[2018-12-03] MEDS: Famotidine TAB* 20 MG PO SCH (09:41)
[2018-12-03] MEDS: Dronedarone TAB* 400 MG PO SCH ×2 (09:41→16:55)
[2018-12-03] MEDS: Metoprolol Succinate XL TAB* 50 MG PO SCH (09:41)
[2018-12-03] MEDS: Apixaban* 5 MG TAB PO SCH ×2 (09:41→21:19)
[2018-12-03] MEDS: Potassium Chlor TAB* 20 MEQ TAB.ER PO SCH ×2 (09:41→21:18)
[2018-12-03] MEDS: Escitalopram * 10 MG TAB PO SCH (09:41)
[2018-12-03] MEDS ORDERED: Ketorolac INJ* 15 MG/ML 1 ML VIAL IV PUSH ONE (12:34)
--- NOTE | 2018-12-03 19:36 | CONSULT ---
Palliative / Hospice Consult Ordering Provider: Luz Maria Irizarry Referal Reason: goals of care/no laxative/tylenol, ketorolac & lidocaine patch - Subjective Code Status: Full Code Advance Directives Location: No Advance Directives - History or Present Illness Lab Values: Abnormal Lab Results 12/03/18 12/03/18 05:56 05:56 WBC 11.3 H RBC 4.01 L Hgb 12.4 L Hct 37 L MCV 93 MCH 31 MCHC 33 RDW 17 H Plt Count 207 MPV 7.1 L Neut % (Auto) 67.6 Lymph % (Auto) 20.3 Gilliam % (Auto) 10.8 Eos % (Auto) 1.0 Baso % (Auto) 0.3 Absolute Neuts (auto) 7.7 Absolute Lymphs (auto) 2.3 Absolute Monos (auto) 1.2 H Absolute Eos (auto) 0.1 Absolute Basos (auto) 0.0 Absolute Nucleated RBC 0.0 Nucleated RBC % 0.0 Sodium 140 Potassium 4.0 Chloride 105 Carbon Dioxide 31 Anion Gap 4 BUN 20 Creatinine 0.52 L Est GFR ( Amer) 187.0 Est GFR (Non-Af Amer) 154.5 BUN/Creatinine Ratio 38.5 H Glucose 92 Calcium 9.0 Magnesium 2.0 Laboratory Last Values WBC 11.3 10^3/uL (3.5-10.8) H 12/03/18 05:56 RBC 4.01 10^6 /uL (4.18-5.48) L 12/03/18 05:56 Hgb 12.4 g/dL (14.0-18.0) L 12/03/18 05:56 Hct 37 % (42-52) L 12/03/18 05:56 MCV 93 fL (80-94) 12/03/18 05:56 MCH 31 pg (27-31) 12/03/18 05:56 MCHC 33 g/dL (31-36) 12/03/18 05:56 RDW 17 % (10-15) H 12/03/18 05:56 Plt Count 207 10^3/uL (150-450) 12/03/18 05:56 MPV 7.1 fL (7.4-10.4) L 12/03/18 05:56 Neut % (Auto) 67.6 % 12/03/18 05:56 Lymph % (Auto) 20.3 % 12/03/18 05:56 Gilliam % (Auto) 10.8 % 12/03/18 05:56 Eos % (Auto) 1.0 % 12/03/18 05:56 Baso % (Auto) 0.3 % 12/03/18 05:56 Absolute Neuts (auto) 7.7 10^3/ul (1.5-7.7) 12/03/18 05:56 Absolute Lymphs (auto) 2.3 10^3/ul (1.0-4.8) 12/03/18 05:56 Absolute Monos (auto) 1.2 10^3/ul (0-0.8) H 12/03/18 05:56 Absolute Eos (auto) 0.1 10^3/ul (0-0.6) 12/03/18 05:56 Absolute Basos (auto) 0.0 10^3/ul (0-0.2) 12/03/18 05:56 Absolute Nucleated RBC 0.0 10^3/ul 12/03/18 05:56 Nucleated RBC % 0.0 12/03/18 05:56 INR (Anticoag Therapy) 1.09 (0.82-1.09) 11/24/18 16:10 APTT 43.6 seconds (26.0-38.0) H 11/24/18 23:50 Patient Temperature Not Reportable 11/30/18 10:35 ABG pH 7.37 (7.35-7.45) 11/30/18 10:35 ABG pH (Temp Correct) Not Reportable 11/30/18 10:35 ABG pCO2 57 mmHg (35-45) H 11/30/18 10:35 ABG pCO2 (Temp Corrct Not Reportable 11/30/18 10:35 ABG pO2 149 mmHg (80-100) H 11/30/18 10:35 ABG pO2 (Temp Correct Not Reportable 11/30/18 10:35 ABG HCO3 29.6 mmol/L (19-31) 11/30/18 10:35 ABG O2 Saturation 99.9 % (94.0-98.0) H 11/30/18 10:35 ABG Base Excess 6.0 mmol/L (-2.0-2.0) H 11/30/18 10:35 Respiration Rate Not Reportable 11/30/18 10:35 O2 Delivery Device 3 lpm nc 11/30/18 10:35 Ventilator Type Not Reportable 11/30/18 10:35 Vent Mode Not Reportable 11/30/18 10:35 FiO2 Not Reportable 11/30/18 10:35 Inspiratory Time Not Reportable 11/30/18 10:35 PEEP Not Reportable 11/30/18 10:35 Pressure Support Not Reportable 11/30/18 10:35 Pressure Control Not Reportable 11/30/18 10:35 EPAP Not Reportable 11/30/18 10:35 IPAP Not Reportable 11/30/18 10:35 BiPAP Not Reportable 11/30/18 10:35 Sodium 140 mmol/L (135-145) 12/03/18 05:56 Potassium 4.0 mmol/L (3.5-5.0) 12/03/18 05:56 Chloride 105 mmol/L (101-111) 12/03/18 05:56 Carbon Dioxide 31 mmol/L (22-32) 12/03/18 05:56 Anion Gap 4 mmol/L (2-11) 12/03/18 05:56 BUN 20 mg/dL (6-24) 12/03/18 05:56 Creatinine 0.52 mg/dL (0.67-1.17) L 12/03/18 05:56 Est GFR ( Amer) 187.0 (>60) 12/03/18 05:56 Est GFR (Non-Af Amer) 154.5 (>60) 12/03/18 05:56 BUN/Creatinine Ratio 38.5 (8-20) H 12/03/18 05:56 Glucose 92 mg/dL (70-100) 12/03/18 05:56 Calcium 9.0 mg/dL (8.6-10.3) 12/03/18 05:56 Phosphorus 2.7 mg/dL (2.5-5.0) 11/29/18 04:01 Magnesium 2.0 mg/dL (1.9-2.7) 12/03/18 05:56 Total Bilirubin 0.80 mg/dL (0.2-1.0) 12/02/18 06:26 Direct Bilirubin 0.10 mg/dL (0.03-0.18) 11/30/18 04:07 Indirect Bilirubin 0.5 mg/dL (0.3-1.0) 11/30/18 04:07 AST 17 U/L (13-39) 12/02/18 06:26 ALT 16 U/L (7-52) 12/02/18 06:26 Alkaline Phosphatase 94 U/L (34-104) 12/02/18 06:26 Ammonia 72 mcmol/L (16-53) H 11/30/18 10:35 Troponin I 0.02 ng/mL (<0.04) 11/26/18 13:15 B-Natriuretic Peptide 296 pg/mL (<=100) H 11/24/18 16:10 Total Protein 5.7 g/dL (6.4-8.9) L 12/02/18 06:26 Albumin 3.3 g/dL (3.2-5.2) 12/02/18 06:26 Globulin 2.4 g/dL (2-4) 12/02/18 06:26 Albumin/Globulin Ratio 1.4 (1-3) 12/02/18 06:26 TSH 1.09 mcIU/mL (0.34-5.60) 11/30/18 10:35 - Objective Active Medications: Acetaminophen (Tylenol Tab*) 650 mg PO Q6H PRN PRN Reason: PAIN - MILD Last Admin: 12/03/18 06:30 Dose: 650 mg Albuterol/Ipratropium (Duoneb (Albuterol 2.5 Mg/Ipratropium 0.5 Mg)) 1 neb INH Q6H PRN PRN Reason: SOB/WHEEZING Last Admin: 11/26/18 13:06 Dose: 1 neb Apixaban (Eliquis*) 5 mg PO BID [facility] Last Admin: 12/03/18 09:41 Dose: 5 mg Dronedarone (Multaq Tab*) 400 mg PO BID WITH MEALS [facility] Last Admin: 12/03/18 16:55 Dose: 400 mg Escitalopram Oxalate (Lexapro *) 10 mg PO DAILY [facility] Last Admin: 12/03/18 09:41 Dose: 10 mg Furosemide (Lasix Tab*) 40 mg PO DAILY [facility] Last Admin: 12/03/18 09:40 Dose: 40 mg Guaifenesin (Mucinex*) 600 mg PO BID [facility] Lidocaine (Lidoderm 5% Patch*) 1 patch TRANSDERM DAILY [facility] Last Admin: 12/03/18 09:39 Dose: 1 patch Metoprolol Succinate (Toprol Xl Tab*) 50 mg PO DAILY [facility] Last Admin: 12/03/18 09:41 Dose: 50 mg Pharmacy Profile Note (Lidocaine Patch Remove*) 1 note N/A 2100 [facility] Potassium Chloride (Klor Con Er Tab*) 20 meq PO BID [facility] Last Admin: 12/03/18 09:41 Dose: 20 meq Vital Signs: Vital Signs: Temp Pulse Resp BP Pulse Ox 97.0 F 81 20 130/61 99 12/03/18 15:39 12/03/18 15:39 12/03/18 15:39 12/03/18 15:39 12/03/18 15:39 Patient Weight: Weight 112.309 kg Intake and Output: Intake & Output 12/01/18 12/02/18 12/03/18 12/04/18 06:59 06:59 06:59 06:59 Intake Total 872 576 480 0 Output Total 1901 1242 650 0 Balance -1029 -666 -170 0 Weight 112.264 kg 112.309 kg Intake: IV Fluids 342 56 ABX 50 NS 292 56 IVPB 270 300 ABX 270 300 Medicated IV 100 100 Magnesium 100 100 Oral 160 120 480 0 Output: Urine 0 Osorio 1901 1242 650 Estimated Blood Loss 0 Other: Date of Last Bowel 12/01/18 t Movement # Bowel Movements 1 1 2 Estimated Stool Amount Large Small Medium ADLs: Meal Record Start: 11/24/18 13: 47 Freq: Status: Active Protocol: Created 11/24/18 13:47 System (Rec: 11/24/18 13:47 System ICU-C25) Document 11/29/18 08:30 BRC2036 (Rec: 11/29/18 10:25 YAG6336 ICU-C15) Document 12/03/18 18:28 JMC8302 (Rec: 12/03/18 18:28 VBO9376 TELE-C07) ADLs: Meal Record Start: 12/02/18 12: 35 Freq: Status: Active Protocol: Created 12/02/18 12:35 KIM1704 (Rec: 12/02/18 12:35 EUP9246 TELE-C10) Intake and Output Start: 11/24/18 13: 47 Freq: 06,14,2200 Status: Active Protocol: Created 11/24/18 13:47 System (Rec: 11/24/18 13:47 System ICU-C25) Document 11/24/18 14:00 RTA7304 (Rec: 11/24/18 15:27 EUZ6045 ISDEMO-M03 ) Document 11/24/18 15:00 HZX5940 (Rec: 11/24/18 15:27 WWM6735 ISDEMO-M03 ) Document 11/24/18 16:00 CJJ2989 (Rec: 11/24/18 16:52 YVY7507 ISDEMO-M03 ) Document 11/24/18 16:51 JDJ2566 (Rec: 11/24/18 16:52 ABC1139 ISDEMO-M03 ) Document 11/24/18 18:00 OCN7940 (Rec: 11/24/18 18:33 DCS6989 ICU-C15) Document 11/24/18 21:00 FFY6062 (Rec: 11/24/18 21:34 TIS3377 ISDEMO-M03 ) Document 11/24/18 23:00 VXY1454 (Rec: 11/24/18 23:05 FHQ3234 ICU-C12) Document 11/25/18 00:00 EBP4351 (Rec: 11/25/18 00:09 WVN6139 ICU-C12) Document 11/25/18 01:00 KTC7208 (Rec: 11/25/18 01:06 NDX9093 ICU-C12) Document 11/25/18 03:00 JOW7669 (Rec: 11/25/18 03:07 NNY5598 ICU-C12) Document 11/25/18 04:00 AKR0819 (Rec: 11/25/18 04:03 BBO7774 ICU-C12) Document 11/25/18 05:00 XPQ3661 (Rec: 11/25/18 05:02 LKZ8779 ICU-C12) Document 11/25/18 06:00 QRA3367 (Rec: 11/25/18 06:09 MLW6420 ISDEMO-M03 ) Document 11/25/18 07:00 XKZ6942 (Rec: 11/25/18 08:37 ZAR8280 ICU-C12) Document 11/25/18 08:00 XVP2029 (Rec: 11/25/18 09:41 ZSE5898 ISDEMO-M03 ) Document 11/25/18 09:00 XDI7331 (Rec: 11/25/18 09:41 DLL3188 ISDEMO-M03 ) Document 11/25/18 10:00 MOT8994 (Rec: 11/25/18 11:23 PMW5395 ICU-C12) Document 11/25/18 11:00 WDQ2700 (Rec: 11/25/18 12:07 ZJE1862 ISDEMO-M03 ) Document 11/25/18 12:00 OME1135 (Rec: 11/25/18 12:07 VCN7842 ISDEMO-M03 ) Document 11/25/18 13:00 UJO9306 (Rec: 11/25/18 13:46 NJO3355 ISDEMO-M03 ) Document 11/25/18 14:00 BCZ2216 (Rec: 11/25/18 18:12 FHJ9865 ICU-C12) Document 11/25/18 15:00 KHN7102 (Rec: 11/25/18 15:33 JWI4591 ICU-C12) Document 11/25/18 16:00 TUR3258 (Rec: 11/25/18 18:12 KGK2219 ICU-C12) Document 11/25/18 17:00 DDR5688 (Rec: 11/25/18 17:03 KIH2215 ICU-C12) Document 11/25/18 18:00 RJK5855 (Rec: 11/25/18 18:11 XPI5127 ICU-C12) Document 11/25/18 19:00 NBG9406 (Rec: 11/25/18 20:46 NMK4719 ICU-C12) Document 11/25/18 20:00 XXD2434 (Rec: 11/25/18 20:46 NBN5756 ICU-C12) Document 11/25/18 21:00 GGV6586 (Rec: 11/25/18 21:05 PFB2231 ICU-C12) Document 11/25/18 22:00 PAJ9847 (Rec: 11/25/18 22:04 LHM4543 ICU-C12) Document 11/25/18 23:00 EXI1388 (Rec: 11/25/18 23:19 ITI4240 ICU-C12) Document 11/26/18 00:00 UPN8300 (Rec: 11/26/18 00:30 JIQ2330 ICU-C12) Document 11/26/18 02:00 URI8193 (Rec: 11/26/18 02:06 SUM1115 ICU-C12) Document 11/26/18 03:00 HJB7272 (Rec: 11/26/18 03:11 EDW5030 ICU-C12) Document 11/26/18 03:56 LBW5327 (Rec: 11/26/18 03:56 CUP9646 ICU-C12) Document 11/26/18 05:00 YLO7124 (Rec: 11/26/18 05:40 RSL5975 ISDEMO-M03 ) Document 11/26/18 06:00 KFA5004 (Rec: 11/26/18 06:23 ILN8406 ICU-C12) Document 11/26/18 07:31 WQG5500 (Rec: 11/26/18 07:32 EIA9840 ISDEMO-M03 ) Document 11/26/18 08:42 MET4930 (Rec: 11/26/18 08:42 ISO2083 ISDEMO-M03 ) Document 11/26/18 09:00 KHH1182 (Rec: 11/26/18 11:18 QLI4312 ISDEMO-M03 ) Document 11/26/18 10:00 HJD1023 (Rec: 11/26/18 11:18 ZLV2716 ISDEMO-M03 ) Document 11/26/18 11:00 GRZ1495 (Rec: 11/26/18 11:18 YMY6555 ISDEMO-M03 ) Document 11/26/18 12:00 IOE2051 (Rec: 11/26/18 12:46 RQO0438 ISDEMO-M03 ) Document 11/26/18 12:46 UAD3443 (Rec: 11/26/18 12:46 MLL0191 ISDEMO-M03 ) Document 11/26/18 13:16 EUS7680 (Rec: 11/26/18 13:16 SFQ7217 ISDEMO-M03 ) Document 11/26/18 15:00 QRI6614 (Rec: 11/26/18 15:22 TPQ6710 ICU-C12) Document 11/26/18 16:00 AEV4629 (Rec: 11/26/18 18:14 MQK0822 ICU-C12) Document 11/26/18 17:00 LSM0769 (Rec: 11/26/18 18:15 HFG5228 ICU-C12) Document 11/26/18 18:00 QGF3437 (Rec: 11/26/18 18:15 SAC4495 ICU-C12) Document 11/26/18 19:00 IPJ5834 (Rec: 11/26/18 19:22 IHN4525 ISDEMO-M03 ) Co-Sign 11/26/18 19:00 JZN1940 Document 11/26/18 20:00 MXS1860 (Rec: 11/26/18 20:29 SGQ8756 ISDEMO-M03 ) Document 11/26/18 22:00 SAC0801 (Rec: 11/26/18 22:05 IIB5584 ICU-C15) Document 11/26/18 22:29 UEP0161 (Rec: 11/26/18 22:29 WOZ1322 ICU-L03) Document 11/26/18 23:09 WKH1237 (Rec: 11/26/18 23:09 PFJ8162 ICU-L03) Document 11/27/18 00:00 BQN8776 (Rec: 11/27/18 00:06 PYU3570 ICU-L03) Document 11/27/18 00:49 PHA1837 (Rec: 11/27/18 00:49 UXL4052 ISDEMO-M03 ) Document 11/27/18 02:00 HSN3207 (Rec: 11/27/18 02:00 FIK9033 ICU-C15) Document 11/27/18 03:00 SDC7362 (Rec: 11/27/18 03:26 GEF5101 ICU-C15) Document 11/27/18 04:00 XEI8534 (Rec: 11/27/18 04:02 BLC3830 ISDEMO-M03 ) Document 11/27/18 05:00 WCG9900 (Rec: 11/27/18 05:20 LLG0653 ICU-C15) Document 11/27/18 06:00 RBM8244 (Rec: 11/27/18 06:27 WLG9153 ICU-C15) Document 11/27/18 08:00 GED9203 (Rec: 11/27/18 08:06 HQX8350 ICU-C15) Document 11/27/18 08:46 WOX0681 (Rec: 11/27/18 08:46 DNM0796 ISDEMO-M03 ) Document 11/27/18 10:53 BDN9869 (Rec: 11/27/18 10:54 UPH7944 ICU-C15) Document 11/27/18 13:26 NZH4321 (Rec: 11/27/18 13:26 XPG7602 ICU-C15) Document 11/27/18 15:15 YBB6939 (Rec: 11/27/18 15:15 TDS4471 ICU-C15) Document 11/27/18 16:48 HSX2525 (Rec: 11/27/18 16:48 ULH7809 ISDEMO-M03 ) Document 11/27/18 18:27 XJU6082 (Rec: 11/27/18 18:27 GZW1845 ICU-C15) Document 11/27/18 19:00 CQQ6643 (Rec: 11/27/18 19:50 OZK2857 ICU-L03) Document 11/27/18 19:52 WPH3072 (Rec: 11/27/18 19:53 NKO9159 ICU-L03) Document 11/27/18 20:08 QCJ4985 (Rec: 11/27/18 20:08 EOM7275 ISDEMO-M03 ) Document 11/27/18 21:00 XWN6875 (Rec: 11/27/18 21:21 LRV1474 ICU-L03) Document 11/27/18 21:53 UAC2877 (Rec: 11/27/18 21:53 TOP4775 ICU-L03) Document 11/27/18 22:08 IZA7153 (Rec: 11/27/18 22:08 UKY0920 ICU-L03) Document 11/27/18 23:00 MLL8765 (Rec: 11/27/18 23:03 MVW8023 ICU-L03) Document 11/28/18 00:00 QSA2742 (Rec: 11/28/18 00:00 JRY9409 ISDEMO-M03 ) Document 11/28/18 01:00 LEL8913 (Rec: 11/28/18 01:11 GWG6969 ICU-L03) Document 11/28/18 01:53 ZSO5980 (Rec: 11/28/18 01:54 KJT8064 ICU-L03) Document 11/28/18 03:00 QRU4417 (Rec: 11/28/18 03:15 OEI9249 ICU-L03) Document 11/28/18 03:54 SFZ5185 (Rec: 11/28/18 03:55 ZII2430 ISDEMO-M03 ) Document 11/28/18 04:59 HQN0517 (Rec: 11/28/18 04:59 TFD9394 ICU-L03) Document 11/28/18 05:54 XXA7317 (Rec: 11/28/18 05:54 FJN3092 ICU-L03) Document 11/28/18 07:00 XZM3221 (Rec: 11/28/18 09:36 XLZ3701 ICU-C15) Document 11/28/18 08:00 ACZ9626 (Rec: 11/28/18 09:36 UTA4102 ICU-C15) Document 11/28/18 09:00 VPF9871 (Rec: 11/28/18 09:36 XBK1790 ICU-C15) Document 11/28/18 10:00 DKM3168 (Rec: 11/28/18 11:09 YKI5523 ICU-C15) Document 11/28/18 11:00 ILO0889 (Rec: 11/28/18 11:09 ADG9365 ICU-C15) Document 11/28/18 12:00 KIO2343 (Rec: 11/28/18 12:09 QJE8283 ISDEMO-M03 ) Document 11/28/18 13:00 FPK6789 (Rec: 11/28/18 15:28 MZE4067 ICU-C15) Document 11/28/18 14:00 XHT7298 (Rec: 11/28/18 15:28 WIY5822 ICU-C15) Document 11/28/18 15:00 EFF9460 (Rec: 11/28/18 15:28 OAB5812 ICU-C15) Document 11/28/18 16:00 TKW3111 (Rec: 11/28/18 18:16 MTV3787 ICU-C15) Document 11/28/18 17:00 GOC2949 (Rec: 11/28/18 18:16 GAZ5525 ICU-C15) Document 11/28/18 18:00 IAQ7279 (Rec: 11/28/18 18:16 EZZ0958 ICU-C15) Document 11/28/18 19:00 QVV7062 (Rec: 11/28/18 19:02 HUJ7780 ICU-C15) Document 11/28/18 20:13 GPK2514 (Rec: 11/28/18 20:27 NCR7924 ICU-C12) Document 11/28/18 21:16 SOJ3553 (Rec: 11/28/18 21:16 XCH3482 ICU-C12) Document 11/28/18 22:24 IBF6278 (Rec: 11/28/18 22:24 SAW7836 ICU-C12) Document 11/28/18 23:46 ZOA3322 (Rec: 11/28/18 23:46 YLZ5162 ICU-C12) Document 11/29/18 00:36 XHC1325 (Rec: 11/29/18 00:41 JIF8086 ICU-C12) Document 11/29/18 01:48 EJW5213 (Rec: 11/29/18 01:48 MSV6730 ICU-C12) Document 11/29/18 02:55 PVN6315 (Rec: 11/29/18 03:00 EMP0865 ICU-C12) Document 11/29/18 03:00 EHK1553 (Rec: 11/29/18 04:12 HMJ4781 ICU-C12) Document 11/29/18 04:12 XVR3277 (Rec: 11/29/18 04:12 SOS1030 ICU-C12) Document 11/29/18 05:00 KGD0458 (Rec: 11/29/18 06:34 CUT8532 ICU-C12) Document 11/29/18 06:34 PUA7332 (Rec: 11/29/18 06:34 ICM3822 ICU-C12) Document 11/29/18 07:33 ZUF8458 (Rec: 11/29/18 07:33 TIH4248 ICU-C15) Document 11/29/18 09:00 OGY7349 (Rec: 11/29/18 09:56 AMU2847 ICU-C15) Document 11/29/18 10:00 SWY4734 (Rec: 11/29/18 10:19 YTD3422 ICU-C15) Document 11/29/18 11:00 CBA1804 (Rec: 11/29/18 11:36 XHX6998 ICU-C15) Document 11/29/18 12:00 MBP3112 (Rec: 11/29/18 12:58 RSA8522 ICU-C15) Document 11/29/18 14:00 BLQ3728 (Rec: 11/29/18 14:25 QMM6613 ICU-C15) Document 11/29/18 16:00 BYX7340 (Rec: 11/29/18 17:40 QII9335 ICU-C15) Document 11/29/18 17:00 TWQ7693 (Rec: 11/29/18 17:39 ZSS4750 ICU-C15) Document 11/29/18 18:00 YDP0314 (Rec: 11/29/18 18:05 XTX4164 ICU-C15) Document 11/29/18 22:00 THH4003 (Rec: 11/29/18 22:15 DYC3674 ICU-C16) Document 11/29/18 23:00 GTM1380 (Rec: 11/29/18 23:20 KZG5228 ICU-C16) Document 11/30/18 00:00 HUC1669 (Rec: 11/30/18 00:08 MKJ0787 ICU-C16) Document 11/30/18 01:00 NQR8167 (Rec: 11/30/18 01:03 KGK6621 ICU-C16) Document 11/30/18 03:00 RZS5446 (Rec: 11/30/18 03:04 OEL6206 ICU-C16) Document 11/30/18 04:00 XSH0626 (Rec: 11/30/18 04:04 PBG2358 ICU-C16) Document 11/30/18 05:00 BIH2498 (Rec: 11/30/18 05:10 DPG6960 ICU-C16) Document 11/30/18 06:00 TLT1878 (Rec: 11/30/18 06:21 KQJ6680 ICU-C16) Document 11/30/18 07:00 KQF6476 (Rec: 11/30/18 11:02 IHV1212 ICU-C15) Document 11/30/18 08:00 DBG3151 (Rec: 11/30/18 11:02 QUI8985 ICU-C15) Document 11/30/18 09:00 RPC2633 (Rec: 11/30/18 11:02 DJZ0354 ICU-C15) Document 11/30/18 11:00 NYV0863 (Rec: 11/30/18 12:08 ZSO4639 ICU-C15) Document 11/30/18 13:00 RML4718 (Rec: 11/30/18 13:54 RVG4649 ICU-C15) Document 11/30/18 14:00 NBS6551 (Rec: 11/30/18 14:13 JPH3420 ICU-C15) Document 11/30/18 16:00 PWT1229 (Rec: 11/30/18 16:48 QPP6175 ICU-C15) Document 11/30/18 18:00 ANU7719 (Rec: 11/30/18 18:32 HAP7230 ICU-C16) Document 11/30/18 19:00 REY2424 (Rec: 11/30/18 21:10 BRD7339 ICU-C12) Document 11/30/18 20:00 XBV2686 (Rec: 11/30/18 21:10 EDD9460 ICU-C12) Document 11/30/18 21:00 WVC5193 (Rec: 11/30/18 21:10 ZBM6179 ICU-C12) Document 11/30/18 22:00 ABF8777 (Rec: 11/30/18 22:18 FYY9063 ICU-C12) Document 11/30/18 23:00 GCG9061 (Rec: 11/30/18 23:00 ZHW7837 ICU-C12) Document 12/01/18 00:00 JLS4773 (Rec: 12/01/18 00:07 OFQ0715 ICU-C12) Document 12/01/18 01:00 RRB6557 (Rec: 12/01/18 01:16 LIF8462 ICU-C12) Document 12/01/18 02:00 DBP7314 (Rec: 12/01/18 04:07 DOH4740 ICU-C12) Document 12/01/18 03:00 RRM7986 (Rec: 12/01/18 04:07 QWU3570 ICU-C12) Document 12/01/18 04:00 TCT6797 (Rec: 12/01/18 04:07 OCA9291 ICU-C12) Document 12/01/18 05:00 RNY0949 (Rec: 12/01/18 05:13 QSX6376 ISDEMO-M03 ) Document 12/01/18 06:00 QGC3956 (Rec: 12/01/18 06:07 KBC0462 ICU-C12) Document 12/01/18 07:00 LLN9318 (Rec: 12/01/18 07:10 ZHE6094 ICU-C12) Document 12/01/18 08:00 MZQ0920 (Rec: 12/01/18 08:30 WAV2210 ICU-C12) Document 12/01/18 09:00 HYZ4094 (Rec: 12/01/18 09:24 RLG1681 ICU-C12) Document 12/01/18 12:23 SVC1930 (Rec: 12/01/18 12:25 QMA7410 ICU-C12) Document 12/01/18 13:55 IEU4846 (Rec: 12/01/18 13:56 TTJ1843 ICU-C12) Document 12/01/18 14:28 WQB1580 (Rec: 12/01/18 14:28 EQW1340 ICU-C12) Document 12/01/18 15:00 PTJ3088 (Rec: 12/01/18 15:35 IPR1153 ICU-C12) Document 12/01/18 16:00 GGL8958 (Rec: 12/01/18 16:31 FCF8238 ICU-C15) Document 12/01/18 17:02 CZF6933 (Rec: 12/01/18 17:08 ELJ1901 ICU-C12) Document 12/01/18 17:55 RUU0293 (Rec: 12/01/18 17:55 MVE0593 ISDEMO-M03 ) Document 12/01/18 20:00 TBU2640 (Rec: 12/01/18 20:19 ZSA0642 ICU-C12) Document 12/01/18 21:00 GSR9518 (Rec: 12/01/18 21:21 HYK1898 ICU-C12) Document 12/01/18 22:00 UYA3745 (Rec: 12/02/18 03:12 [id number] TELE-C09) Document 12/02/18 06:00 [id number] (Rec: 12/02/18 06:23 [id number] TELE-C10) Document 12/02/18 12:35 [id number] (Rec: 12/02/18 12:35 [id number] TELE-C10) Document 12/02/18 14:00 [id number] (Rec: 12/02/18 14:42 [id number] TELE-C05) Document 12/02/18 22:00 [id number] (Rec: 12/02/18 23:36 [id number] TELE-C10) Document 12/03/18 06:00 [id number] (Rec: 12/03/18 07:20 [id number] TELE-C10) Document 12/03/18 14:00 [id number] (Rec: 12/03/18 15:13 [id number] TELE-C01) Eyes: No Scleral Icterus Ears/Nose/Mouth/Throat: Clear Oropharnyx, Mucous Membranes Moist Neck: NL Appearance and Movements; NL JVP Cardiovascular: NL Sounds; No Murmurs; No JVD, RRR, No Edema Abdominal: NL Sounds; No Tenderness; No Distention Extremities: No Edema, No Clubbing, Cyanosis Neurological: NL Muscle Strength and Tone
--- NOTE | 2018-12-03 19:39 | CONSULT ---
Palliative / Hospice Consult Ordering Provider: Luz Maria Irizarry Referal Reason: Goals of care/no bowel regime/tylenol, lidocaine patch and ketorolac - Subjective Code Status: Full Code Advance Directives Location: No Advance Directives - History or Present Illness History or Present Illness: 78yo male with end stage COPD presents to [place] ER with SOB admitted with RLL pneumonia due to increasing CO2 levels pt was intubated [place] [facility] [place]. PMH is significant for CHF, afib, h/o depression, chronic pain, BPH, neurogenic bladder, INDIGO, spinal stenosis, pulm HTN, h/o rib fx, h/o AV malformation repaired, CVA and h/o comminuted fx of L tibia. 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 They have been together for 41yrs and have step kids. Studies cxr-pulmonary edema, echo#1 poor quality, ekg-afib, pvc & LBBB, cxr#2 infiltrate and improving effusions, chest CT-R suprahilar mass (later studies showed it was not a mass but atelectasis), Echo-40-45%, CT chest atelectasis, H/H 11.9/36, wbc 14.6, BUN/Cr 17/.44, egfr 187, tprot 5.7, alb 3.3 , NH4 72 and inr 1.09. Pt has been hospitalized 6 times in last year and with 2 ER visits. Pt is admitted with respiratory failure, pulmonary edema and pneumonia, extubated 11/26 and afib which was cardioverted 11/27/18. Pt was last hospitalized 10/01-03/2019 and went to rehab until 11/17 he was home 7 days before getting sick and going to ER. All history is from the pt, and medical records. Lab Values: Abnormal Lab Results 12/03/18 12/03/18 05:56 05:56 WBC 11.3 H RBC 4.01 L Hgb 12.4 L Hct 37 L MCV 93 MCH 31 MCHC 33 RDW 17 H Plt Count 207 MPV 7.1 L Neut % (Auto) 67.6 Lymph % (Auto) 20.3 [place] % (Auto) 10.8 Eos % (Auto) 1.0 Baso % (Auto) 0.3 Absolute Neuts (auto) 7.7 Absolute Lymphs (auto) 2.3 Absolute Monos (auto) 1.2 H Absolute Eos (auto) 0.1 Absolute Basos (auto) 0.0 Absolute Nucleated RBC 0.0 Nucleated RBC % 0.0 Sodium 140 Potassium 4.0 Chloride 105 Carbon Dioxide 31 Anion Gap 4 BUN 20 Creatinine 0.52 L Est GFR ( Amer) 187.0 Est GFR (Non-Af Amer) 154.5 BUN/Creatinine Ratio 38.5 H Glucose 92 Calcium 9.0 Magnesium 2.0 Laboratory Last Values WBC 11.3 10^3/uL (3.5-10.8) H 12/03/18 05:56 RBC 4.01 10^6 /uL (4.18-5.48) L 12/03/18 05:56 Hgb 12.4 g/dL (14.0-18.0) L 12/03/18 05:56 Hct 37 % (42-52) L 12/03/18 05:56 MCV 93 fL (80-94) 12/03/18 05:56 MCH 31 pg (27-31) 12/03/18 05:56 MCHC 33 g/dL (31-36) 12/03/18 05:56 RDW 17 % (10-15) H 12/03/18 05:56 Plt Count 207 10^3/uL (150-450) 12/03/18 05:56 MPV 7.1 fL (7.4-10.4) L 12/03/18 05:56 Neut % (Auto) 67.6 % 12/03/18 05:56 Lymph % (Auto) 20.3 % 12/03/18 05:56 [place] % (Auto) 10.8 % 12/03/18 05:56 Eos % (Auto) 1.0 % 12/03/18 05:56 Baso % (Auto) 0.3 % 12/03/18 05:56 Absolute Neuts (auto) 7.7 10^3/ul (1.5-7.7) 12/03/18 05:56 Absolute Lymphs (auto) 2.3 10^3/ul (1.0-4.8) 12/03/18 05:56 Absolute Monos (auto) 1.2 10^3/ul (0-0.8) H 12/03/18 05:56 Absolute Eos (auto) 0.1 10^3/ul (0-0.6) 12/03/18 05:56 Absolute Basos (auto) 0.0 10^3/ul (0-0.2) 12/03/18 05:56 Absolute Nucleated RBC 0.0 10^3/ul 12/03/18 05:56 Nucleated RBC % 0.0 12/03/18 05:56 INR (Anticoag Therapy) 1.09 (0.82-1.09) 11/24/18 16:10 APTT 43.6 seconds (26.0-38.0) H 11/24/18 23:50 Patient Temperature Not Reportable 11/30/18 10:35 ABG pH 7.37 (7.35-7.45) 11/30/18 10:35 ABG pH (Temp Correct) Not Reportable 11/30/18 10:35 ABG pCO2 57 mmHg (35-45) H 11/30/18 10:35 ABG pCO2 (Temp Corrct Not Reportable 11/30/18 10:35 ABG pO2 149 mmHg (80-100) H 11/30/18 10:35 ABG pO2 (Temp Correct Not Reportable 11/30/18 10:35 ABG HCO3 29.6 mmol/L (19-31) 11/30/18 10:35 ABG O2 Saturation 99.9 % (94.0-98.0) H 11/30/18 10:35 ABG Base Excess 6.0 mmol/L (-2.0-2.0) H 11/30/18 10:35 Respiration Rate Not Reportable 11/30/18 10:35 O2 Delivery Device 3 lpm nc 11/30/18 10:35 Ventilator Type Not Reportable 11/30/18 10:35 Vent Mode Not Reportable 11/30/18 10:35 FiO2 Not Reportable 11/30/18 10:35 Inspiratory Time Not Reportable 11/30/18 10:35 PEEP Not Reportable 11/30/18 10:35 Pressure Support Not Reportable 11/30/18 10:35 Pressure Control Not Reportable 11/30/18 10:35 EPAP Not Reportable 11/30/18 10:35 IPAP Not Reportable 11/30/18 10:35 BiPAP Not Reportable 11/30/18 10:35 Sodium 140 mmol/L (135-145) 12/03/18 05:56 Potassium 4.0 mmol/L (3.5-5.0) 12/03/18 05:56 Chloride 105 mmol/L (101-111) 12/03/18 05:56 Carbon Dioxide 31 mmol/L (22-32) 12/03/18 05:56 Anion Gap 4 mmol/L (2-11) 12/03/18 05:56 BUN 20 mg/dL (6-24) 12/03/18 05:56 Creatinine 0.52 mg/dL (0.67-1.17) L 12/03/18 05:56 Est GFR ( Amer) 187.0 (>60) 12/03/18 05:56 Est GFR (Non-Af Amer) 154.5 (>60) 12/03/18 05:56 BUN/Creatinine Ratio 38.5 (8-20) H 12/03/18 05:56 Glucose 92 mg/dL (70-100) 12/03/18 05:56 Calcium 9.0 mg/dL (8.6-10.3) 12/03/18 05:56 Phosphorus 2.7 mg/dL (2.5-5.0) 11/29/18 04:01 Magnesium 2.0 mg/dL (1.9-2.7) 12/03/18 05:56 Total Bilirubin 0.80 mg/dL (0.2-1.0) 12/02/18 06:26 Direct Bilirubin 0.10 mg/dL (0.03-0.18) 11/30/18 04:07 Indirect Bilirubin 0.5 mg/dL (0.3-1.0) 11/30/18 04:07 AST 17 U/L (13-39) 12/02/18 06:26 ALT 16 U/L (7-52) 12/02/18 06:26 Alkaline Phosphatase 94 U/L (34-104) 12/02/18 06:26 Ammonia 72 mcmol/L (16-53) H 11/30/18 10:35 Troponin I 0.02 ng/mL (<0.04) 11/26/18 13:15 B-Natriuretic Peptide 296 pg/mL (<=100) H 11/24/18 16:10 Total Protein 5.7 g/dL (6.4-8.9) L 12/02/18 06:26 Albumin 3.3 g/dL (3.2-5.2) 12/02/18 06:26 Globulin 2.4 g/dL (2-4) 12/02/18 06:26 Albumin/Globulin Ratio 1.4 (1-3) 12/02/18 06:26 TSH 1.09 mcIU/mL (0.34-5.60) 11/30/18 10:35 - Objective Active Medications: Acetaminophen (Tylenol Tab*) 650 mg PO Q6H PRN PRN Reason: PAIN - MILD Last Admin: 12/03/18 06:30 Dose: 650 mg Albuterol/Ipratropium (Duoneb (Albuterol 2.5 Mg/Ipratropium 0.5 Mg)) 1 neb INH Q6H PRN PRN Reason: SOB/WHEEZING Last Admin: 11/26/18 13:06 Dose: 1 neb Apixaban (Eliquis*) 5 mg PO BID [facility] Last Admin: 12/03/18 09:41 Dose: 5 mg Dronedarone (Multaq Tab*) 400 mg PO BID WITH MEALS [facility] Last Admin: 12/03/18 16:55 Dose: 400 mg Escitalopram Oxalate (Lexapro *) 10 mg PO DAILY [facility] Last Admin: 12/03/18 09:41 Dose: 10 mg Furosemide (Lasix Tab*) 40 mg PO DAILY [facility] Last Admin: 12/03/18 09:40 Dose: 40 mg Guaifenesin (Mucinex*) 600 mg PO BID [facility] Lidocaine (Lidoderm 5% Patch*) 1 patch TRANSDERM DAILY [facility] Last Admin: 12/03/18 09:39 Dose: 1 patch Metoprolol Succinate (Toprol Xl Tab*) 50 mg PO DAILY [facility] Last Admin: 12/03/18 09:41 Dose: 50 mg Pharmacy Profile Note (Lidocaine Patch Remove*) 1 note N/A 2100 [facility] Potassium Chloride (Klor Con Er Tab*) 20 meq PO BID [facility] Last Admin: 12/03/18 09:41 Dose: 20 meq Vital Signs: Vital Signs: Temp Pulse Resp BP Pulse Ox 97.0 F 81 20 130/61 99 12/03/18 15:39 12/03/18 15:39 12/03/18 15:39 12/03/18 15:39 12/03/18 15:39 Patient Weight: Weight 112.309 kg Intake and Output: Intake & Output 12/01/18 12/02/18 12/03/18 12/04/18 06:59 06:59 06:59 06:59 Intake Total 872 576 480 0 Output Total 1901 1242 650 0 Balance -1029 -666 -170 0 Weight 112.264 kg 112.309 kg Intake: IV Fluids 342 56 ABX 50 NS 292 56 IVPB 270 300 ABX 270 300 Medicated IV 100 100 Magnesium 100 100 Oral 160 120 480 0 Output: Urine 0 Osorio 1901 1242 650 Estimated Blood Loss 0 Other: Date of Last Bowel 12/01/18 t Movement # Bowel Movements 1 1 2 Estimated Stool Amount Large Small Medium ADLs: Meal Record Start: 11/24/18 13: 47 Freq: Status: Active Protocol: Created 11/24/18 13:47 System (Rec: 11/24/18 13:47 System ICU-C25) Document 11/29/18 08:30 [id number] (Rec: 11/29/18 10:25 KGO0967 ICU-C15) Document 12/03/18 18:28 NLS6426 (Rec: 12/03/18 18:28 CZD9621 TELE-C07) ADLs: Meal Record Start: 12/02/18 12: 35 Freq: Status: Active Protocol: Created 12/02/18 12:35 RDL5681 (Rec: 12/02/18 12:35 YNR3027 TELE-C10) Intake and Output Start: 11/24/18 13: 47 Freq: 06,14,2200 Status: Active Protocol: Created 11/24/18 13:47 System (Rec: 11/24/18 13:47 System ICU-C25) Document 11/24/18 14:00 OAH4930 (Rec: 11/24/18 15:27 IMN0055 ISDEMO-M03 ) Document 11/24/18 15:00 XMP6738 (Rec: 11/24/18 15:27 FTU5603 ISDEMO-M03 ) Document 11/24/18 16:00 MHS6956 (Rec: 11/24/18 16:52 KLS4933 ISDEMO-M03 ) Document 11/24/18 16:51 FLY0195 (Rec: 11/24/18 16:52 GHD3049 ISDEMO-M03 ) Document 11/24/18 18:00 ZJO9875 (Rec: 11/24/18 18:33 ZLS3544 ICU-C15) Document 11/24/18 21:00 JAV2809 (Rec: 11/24/18 21:34 VQI9868 ISDEMO-M03 ) Document 11/24/18 23:00 YUS7989 (Rec: 11/24/18 23:05 ASQ1837 ICU-C12) Document 11/25/18 00:00 YNM9016 (Rec: 11/25/18 00:09 YDT6091 ICU-C12) Document 11/25/18 01:00 OVO1629 (Rec: 11/25/18 01:06 RWT6677 ICU-C12) Document 11/25/18 03:00 PHV4084 (Rec: 11/25/18 03:07 HPM2937 ICU-C12) Document 11/25/18 04:00 NWT9502 (Rec: 11/25/18 04:03 VZH2809 ICU-C12) Document 11/25/18 05:00 ETK3493 (Rec: 11/25/18 05:02 JDB6630 ICU-C12) Document 11/25/18 06:00 ETK8862 (Rec: 11/25/18 06:09 BUX5577 ISDEMO-M03 ) Document 11/25/18 07:00 YJM3939 (Rec: 11/25/18 08:37 GZK8978 ICU-C12) Document 11/25/18 08:00 VQP8033 (Rec: 11/25/18 09:41 ESB9992 ISDEMO-M03 ) Document 11/25/18 09:00 OOV0062 (Rec: 11/25/18 09:41 ZXY6587 ISDEMO-M03 ) Document 11/25/18 10:00 OHV1719 (Rec: 11/25/18 11:23 LNW7580 ICU-C12) Document 11/25/18 11:00 NKK4275 (Rec: 11/25/18 12:07 DDH1183 ISDEMO-M03 ) Document 11/25/18 12:00 HQR5176 (Rec: 11/25/18 12:07 WQQ0871 ISDEMO-M03 ) Document 11/25/18 13:00 NXA7436 (Rec: 11/25/18 13:46 TQJ4712 ISDEMO-M03 ) Document 11/25/18 14:00 MXB3250 (Rec: 11/25/18 18:12 UHU1111 ICU-C12) Document 11/25/18 15:00 USN8475 (Rec: 11/25/18 15:33 SVK8890 ICU-C12) Document 11/25/18 16:00 KYM7864 (Rec: 11/25/18 18:12 UPC0574 ICU-C12) Document 11/25/18 17:00 RLL3508 (Rec: 11/25/18 17:03 TOH0556 ICU-C12) Document 11/25/18 18:00 NUX0421 (Rec: 11/25/18 18:11 EQS5231 ICU-C12) Document 11/25/18 19:00 YFY3581 (Rec: 11/25/18 20:46 MKC1543 ICU-C12) Document 11/25/18 20:00 OPA8459 (Rec: 11/25/18 20:46 MJJ8315 ICU-C12) Document 11/25/18 21:00 JTY3834 (Rec: 11/25/18 21:05 XNC5824 ICU-C12) Document 11/25/18 22:00 YHZ1091 (Rec: 11/25/18 22:04 KMV3333 ICU-C12) Document 11/25/18 23:00 GBX9533 (Rec: 11/25/18 23:19 HEO4591 ICU-C12) Document 11/26/18 00:00 VKJ6518 (Rec: 11/26/18 00:30 MKL7169 ICU-C12) Document 11/26/18 02:00 FYN6642 (Rec: 11/26/18 02:06 TXB2907 ICU-C12) Document 11/26/18 03:00 GXP2840 (Rec: 11/26/18 03:11 WDF5387 ICU-C12) Document 11/26/18 03:56 RRC9428 (Rec: 11/26/18 03:56 ILA2828 ICU-C12) Document 11/26/18 05:00 BJX6039 (Rec: 11/26/18 05:40 GZS5026 ISDEMO-M03 ) Document 11/26/18 06:00 IVZ7737 (Rec: 11/26/18 06:23 LOF8200 ICU-C12) Document 11/26/18 07:31 UQV0290 (Rec: 11/26/18 07:32 NCJ8782 ISDEMO-M03 ) Document 11/26/18 08:42 ORE2212 (Rec: 11/26/18 08:42 SCB5041 ISDEMO-M03 ) Document 11/26/18 09:00 LFD0465 (Rec: 11/26/18 11:18 HKS5650 ISDEMO-M03 ) Document 11/26/18 10:00 QYN0410 (Rec: 11/26/18 11:18 PUK0090 ISDEMO-M03 ) Document 11/26/18 11:00 QXR6626 (Rec: 11/26/18 11:18 BIY3027 ISDEMO-M03 ) Document 11/26/18 12:00 SWS3917 (Rec: 11/26/18 12:46 IMW4059 ISDEMO-M03 ) Document 11/26/18 12:46 IGJ7152 (Rec: 11/26/18 12:46 YUQ6146 ISDEMO-M03 ) Document 11/26/18 13:16 BCO2987 (Rec: 11/26/18 13:16 HAZ0473 ISDEMO-M03 ) Document 11/26/18 15:00 NLW0834 (Rec: 11/26/18 15:22 UXM3516 ICU-C12) Document 11/26/18 16:00 ROF3256 (Rec: 11/26/18 18:14 FGA0496 ICU-C12) Document 11/26/18 17:00 JIP0888 (Rec: 11/26/18 18:15 XJZ6204 ICU-C12) Document 11/26/18 18:00 RLA1890 (Rec: 11/26/18 18:15 RCD2633 ICU-C12) Document 11/26/18 19:00 BNY1800 (Rec: 11/26/18 19:22 CMV5977 ISDEMO-M03 ) Co-Sign 11/26/18 19:00 QVQ5426 Document 11/26/18 20:00 ZUG7073 (Rec: 11/26/18 20:29 LYU0002 ISDEMO-M03 ) Document 11/26/18 22:00 KUU8040 (Rec: 11/26/18 22:05 JNE5028 ICU-C15) Document 11/26/18 22:29 OUX2677 (Rec: 11/26/18 22:29 UFW9113 ICU-L03) Document 11/26/18 23:09 IKN0393 (Rec: 11/26/18 23:09 UFX5717 ICU-L03) Document 11/27/18 00:00 IXW9161 (Rec: 11/27/18 00:06 NRQ6375 ICU-L03) Document 11/27/18 00:49 NXQ5849 (Rec: 11/27/18 00:49 LOQ4447 ISDEMO-M03 ) Document 11/27/18 02:00 GCX7971 (Rec: 11/27/18 02:00 EDJ2870 ICU-C15) Document 11/27/18 03:00 FGF3501 (Rec: 11/27/18 03:26 XOK7195 ICU-C15) Document 11/27/18 04:00 TBT9308 (Rec: 11/27/18 04:02 QLD4569 ISDEMO-M03 ) Document 11/27/18 05:00 ORY4436 (Rec: 11/27/18 05:20 DXB9537 ICU-C15) Document 11/27/18 06:00 EMW4380 (Rec: 11/27/18 06:27 RKS9098 ICU-C15) Document 11/27/18 08:00 ECM7712 (Rec: 11/27/18 08:06 PFL8053 ICU-C15) Document 11/27/18 08:46 TTR4917 (Rec: 11/27/18 08:46 XSE9342 ISDEMO-M03 ) Document 11/27/18 10:53 YPM2898 (Rec: 11/27/18 10:54 NUT9563 ICU-C15) Document 11/27/18 13:26 HCC3559 (Rec: 11/27/18 13:26 JYI2887 ICU-C15) Document 11/27/18 15:15 UOF6057 (Rec: 11/27/18 15:15 CXG4876 ICU-C15) Document 11/27/18 16:48 ZZC3895 (Rec: 11/27/18 16:48 VVU7923 ISDEMO-M03 ) Document 11/27/18 18:27 KEF1400 (Rec: 11/27/18 18:27 QMI3957 ICU-C15) Document 11/27/18 19:00 XJY7026 (Rec: 11/27/18 19:50 OMJ4965 ICU-L03) Document 11/27/18 19:52 DLG3495 (Rec: 11/27/18 19:53 GDU5500 ICU-L03) Document 11/27/18 20:08 FMU6274 (Rec: 11/27/18 20:08 UYX4653 ISDEMO-M03 ) Document 11/27/18 21:00 ASQ0318 (Rec: 11/27/18 21:21 CRI2658 ICU-L03) Document 11/27/18 21:53 RMX7414 (Rec: 11/27/18 21:53 OBS8208 ICU-L03) Document 11/27/18 22:08 NRZ3789 (Rec: 11/27/18 22:08 YVE0546 ICU-L03) Document 11/27/18 23:00 DLH2288 (Rec: 11/27/18 23:03 QVV4791 ICU-L03) Document 11/28/18 00:00 XMZ3102 (Rec: 11/28/18 00:00 HFY7325 ISDEMO-M03 ) Document 11/28/18 01:00 LBU8638 (Rec: 11/28/18 01:11 XVR0621 ICU-L03) Document 11/28/18 01:53 NAP4889 (Rec: 11/28/18 01:54 SLU4908 ICU-L03) Document 11/28/18 03:00 JBT4840 (Rec: 11/28/18 03:15 ZGQ6727 ICU-L03) Document 11/28/18 03:54 NWI8931 (Rec: 11/28/18 03:55 DPH1916 ISDEMO-M03 ) Document 11/28/18 04:59 PGX4396 (Rec: 11/28/18 04:59 YLT1182 ICU-L03) Document 11/28/18 05:54 CTY1806 (Rec: 11/28/18 05:54 AFW2811 ICU-L03) Document 08/29/19 07:00 UEP6173 (Rec: 11/28/18 09:36 LOY5687 ICU-C15) Document 11/28/18 08:00 TVH3088 (Rec: 11/28/18 09:36 ISN5145 ICU-C15) Document 11/28/18 09:00 ZXD1644 (Rec: 11/28/18 09:36 JEV7908 ICU-C15) Document 11/28/18 10:00 AEO0752 (Rec: 11/28/18 11:09 BID7706 ICU-C15) Document 11/28/18 11:00 TYO7781 (Rec: 11/28/18 11:09 WMZ1215 ICU-C15) Document 11/28/18 12:00 BNX5226 (Rec: 11/28/18 12:09 QYI6093 ISDEMO-M03 ) Document 11/28/18 13:00 HMH2464 (Rec: 11/28/18 15:28 GKE2596 ICU-C15) Document 11/28/18 14:00 XRT7532 (Rec: 11/28/18 15:28 NIP7009 ICU-C15) Document 11/28/18 15:00 DCV8682 (Rec: 11/28/18 15:28 VWF7533 ICU-C15) Document 11/28/18 16:00 LWP6004 (Rec: 11/28/18 18:16 GSF3183 ICU-C15) Document 11/28/18 17:00 WQS8200 (Rec: 11/28/18 18:16 QQI5404 ICU-C15) Document 11/28/18 18:00 (Rec: 11/28/18 18:16 PRO1769 ICU-C15) Document 11/28/18 19:00 VHW8098 (Rec: 11/28/18 19:02 CKA3756 ICU-C15) Document 11/28/18 20:13 HOF1773 (Rec: 11/28/18 20:27 EYR3774 ICU-C12) Document 11/28/18 21:16 MGG5658 (Rec: 11/28/18 21:16 XZC6615 ICU-C12) Document 11/28/18 22:24 USA2702 (Rec: 11/28/18 22:24 VXK1893 ICU-C12) Document 11/28/18 23:46 AKB8953 (Rec: 11/28/18 23:46 YAR0112 ICU-C12) Document 11/29/18 00:36 XKH7939 (Rec: 11/29/18 00:41 PJY2451 ICU-C12) Document 11/29/18 01:48 FRA4042 (Rec: 11/29/18 01:48 HQM5543 ICU-C12) Document 11/29/18 02:55 QQX2808 (Rec: 11/29/18 03:00 LPY2388 ICU-C12) Document 11/29/18 03:00 OUO8737 (Rec: 11/29/18 04:12 ZHP8961 ICU-C12) Document 11/29/18 04:12 UKY5343 (Rec: 11/29/18 04:12 ZEM0899 ICU-C12) Document 11/29/18 05:00 EJB8528 (Rec: 11/29/18 06:34 PFT4863 ICU-C12) Document 11/29/18 06:34 LYR8336 (Rec: 11/29/18 06:34 CUC5287 ICU-C12) Document 11/29/18 07:33 VUF9344 (Rec: 11/29/18 07:33 AHR6310 ICU-C15) Document 11/29/18 09:00 HLF7646 (Rec: 11/29/18 09:56 MPU1418 ICU-C15) Document 11/29/18 10:00 PRR5063 (Rec: 11/29/18 10:19 ABY5245 ICU-C15) Document 11/29/18 11:00 XRK3062 (Rec: 11/29/18 11:36 ZIM8625 ICU-C15) Document 11/29/18 12:00 ZXQ5635 (Rec: 11/29/18 12:58 JBQ8511 ICU-C15) Document 11/29/18 14:00 BCE8772 (Rec: 11/29/18 14:25 SJO9791 ICU-C15) Document 11/29/18 16:00 HBG5055 (Rec: 11/29/18 17:40 SWS7042 ICU-C15) Document 11/29/18 17:00 XAA2610 (Rec: 11/29/18 17:39 WCK8687 ICU-C15) Document 11/29/18 18:00 EXA9192 (Rec: 11/29/18 18:05 AYO3420 ICU-C15) Document 11/29/18 22:00 BEE2019 (Rec: 11/29/18 22:15 UPC0109 ICU-C16) Document 11/29/18 23:00 TTS0855 (Rec: 11/29/18 23:20 IKD0893 ICU-C16) Document 11/30/18 00:00 SOL9016 (Rec: 11/30/18 00:08 YCB8662 ICU-C16) Document 11/30/18 01:00 IGI0783 (Rec: 11/30/18 01:03 RSF2671 ICU-C16) Document 11/30/18 03:00 NCS1041 (Rec: 11/30/18 03:04 GDU3307 ICU-C16) Document 11/30/18 04:00 YAO6066 (Rec: 11/30/18 04:04 QGV1366 ICU-C16) Document 11/30/18 05:00 XHH2495 (Rec: 11/30/18 05:10 OKN6845 ICU-C16) Document 11/30/18 06:00 ZPD9135 (Rec: 11/30/18 06:21 NBR0061 ICU-C16) Document 11/30/18 07:00 MXN2850 (Rec: 11/30/18 11:02 XGJ1065 ICU-C15) Document 11/30/18 08:00 TLZ9389 (Rec: 11/30/18 11:02 SDN8927 ICU-C15) Document 11/30/18 09:00 TMY0942 (Rec: 11/30/18 11:02 FMN8307 ICU-C15) Document 11/30/18 11:00 KNC5041 (Rec: 11/30/18 12:08 WBL5702 ICU-C15) Document 11/30/18 13:00 URZ8716 (Rec: 11/30/18 13:54 HGJ5822 ICU-C15) Document 11/30/18 14:00 OKK9552 (Rec: 11/30/18 14:13 AIL5663 ICU-C15) Document 11/30/18 16:00 ZQM1456 (Rec: 11/30/18 16:48 ONF8810 ICU-C15) Document 11/30/18 18:00 ISZ9827 (Rec: 11/30/18 18:32 SRW0259 ICU-C16) Document 11/30/18 19:00 JLH0465 (Rec: 11/30/18 21:10 HJO0969 ICU-C12) Document 11/30/18 20:00 PHF9493 (Rec: 11/30/18 21:10 ALJ6338 ICU-C12) Document 11/30/18 21:00 PBV0520 (Rec: 11/30/18 21:10 WWU7395 ICU-C12) Document 11/30/18 22:00 NPU4964 (Rec: 11/30/18 22:18 ORM3410 ICU-C12) Document 11/30/18 23:00 ECX3281 (Rec: 11/30/18 23:00 YAT2632 ICU-C12) Document 12/01/18 00:00 YSU8910 (Rec: 12/01/18 00:07 ZJR0129 ICU-C12) Document 12/01/18 01:00 XAI5176 (Rec: 12/01/18 01:16 DYI0071 ICU-C12) Document 12/01/18 02:00 ZBW5153 (Rec: 12/01/18 04:07 LZX1113 ICU-C12) Document 12/01/18 03:00 SDC5534 (Rec: 12/01/18 04:07 BIN9570 ICU-C12) Document 12/01/18 04:00 JSY5930 (Rec: 12/01/18 04:07 ZNF1047 ICU-C12) Document 12/01/18 05:00 QZN4499 (Rec: 12/01/18 05:13 HCU3982 ISDEMO-M03 ) Document 12/01/18 06:00 PWR5794 (Rec: 12/01/18 06:07 ATH1578 ICU-C12) Document 12/01/18 07:00 MSH2314 (Rec: 12/01/18 07:10 QVN4449 ICU-C12) Document 12/01/18 08:00 [id number] (Rec: 12/01/18 08:30 [id number] ICU-C12) Document 12/01/18 09:00 [id number] (Rec: 12/01/18 09:24 [id number] ICU-C12) Document 12/01/18 12:23 [id number] (Rec: 12/01/18 12:25 [id number] ICU-C12) Document 12/01/18 13:55 [id number] (Rec: 12/01/18 13:56 [id number] ICU-C12) Document 12/01/18 14:28 [id number] (Rec: 12/01/18 14:28 [id number] ICU-C12) Document 12/01/18 15:00 [id number] (Rec: 12/01/18 15:35 [id number] ICU-C12) Document 12/01/18 16:00 [id number] (Rec: 12/01/18 16:31 [id number] ICU-C15) Document 12/01/18 17:02 [id number] (Rec: 12/01/18 17:08 [id number] ICU-C12) Document 12/01/18 17:55 [id number] (Rec: 12/01/18 17:55 [id number] ISDEMO-M03 ) Document 12/01/18 20:00 [id number] (Rec: 12/01/18 20:19 [id number] ICU-C12) Document 12/01/18 21:00 [id number] (Rec: 12/01/18 21:21 [id number] ICU-C12) Document 12/01/18 22:00 [id number] (Rec: 12/02/18 03:12 [id number] TELE-C09) Document 12/02/18 06:00 [id number] (Rec: 12/02/18 06:23 [id number] TELE-C10) Document 12/02/18 12:35 TCO1380 (Rec: 12/02/18 12:35 [id number] TELE-C10) Document 12/02/18 14:00 UBQ1914 (Rec: 12/02/18 14:42 [id number] TELE-C05) Document 12/02/18 22:00 [id number] (Rec: 12/02/18 23:36 [id number] TELE-C10) Document 12/03/18 06:00 FAV3941 (Rec: 12/03/18 07:20 [id number] TELE-C10) Document 12/03/18 14:00 [id number] (Rec: 12/03/18 15:13 [id number] TELE-C01) Eyes: No Scleral Icterus Ears/Nose/Mouth/Throat: Clear Oropharnyx, Mucous Membranes Moist Neck: NL Appearance and Movements; NL JVP Cardiovascular: NL Sounds; No Murmurs; No JVD, RRR, No Edema Abdominal: NL Sounds; No Tenderness; No Distention Extremities: No Edema, No Clubbing, Cyanosis Neurological: NL Muscle Strength and Tone - Assessment Assessment: 78yo male with end stage COPD, CHF presents with respiratory failure secondary to pulmonary edema and pneumonia - Plan Consult Plan (MU): Palliative Plan: Long discussion with and pt about goals of care. I reviewed the [facility] form with them. expressed that pt would not want to be intubated again and wouldn't want a feeding tube. After explaining CPR felt wouldn't want it. They are going to review the form and I will check back with them. Also discussed hospice and brochure was given. Pt's family member used hospice and it was a positive experience. doesn't want her to go to [facility] she wants to care for him at their home. I explained that hospice would be able to help her with that goal. As of now pt is planning to go to [facility] so he can be more mobile and easier to care for at home. KPS 50%, PPS 50% - Time On Unit Date of Evaluation: 12/03/18 Hospice Consult Time in: 14:00 Hospice Consult Time Out: 15:30 Hospice Consult Time Total: 90
--- NOTE | 2018-12-03 19:40 | PN ---
Subjective Date of Service: 12/03/18 Interval History: Patient and unaware of prior CHF diagnosis though it is a longstanding in his PMHx. Patient has productive cough with clear sputum. Feels his breathing is comfortable, tells me he uses 2-3L oxygen at home. Denies chest pain, abd pain, fever/chills. No episodes of diarrhea today. C/o knee pain in AM, restarted home lidocaine patch which did not help. Toradol relieved knee pain. Past Medical History: Unchanged from Admission Objective Active Medications: Acetaminophen (Tylenol Tab*) 650 mg PO Q6H PRN PRN Reason: PAIN - MILD Last Admin: 12/03/18 06:30 Dose: 650 mg Albuterol/Ipratropium (Duoneb (Albuterol 2.5 Mg/Ipratropium 0.5 Mg)) 1 neb INH Q6H PRN PRN Reason: SOB/WHEEZING Last Admin: 11/26/18 13:06 Dose: 1 neb Apixaban (Eliquis*) 5 mg PO BID [facility] Last Admin: 12/03/18 09:41 Dose: 5 mg Dronedarone (Multaq Tab*) 400 mg PO BID WITH MEALS [facility] Last Admin: 12/03/18 16:55 Dose: 400 mg Escitalopram Oxalate (Lexapro *) 10 mg PO DAILY [facility] Last Admin: 12/03/18 09:41 Dose: 10 mg Furosemide (Lasix Tab*) 40 mg PO DAILY [facility] Last Admin: 12/03/18 09:40 Dose: 40 mg Guaifenesin (Mucinex*) 600 mg PO BID [facility] Lidocaine (Lidoderm 5% Patch*) 1 patch TRANSDERM DAILY [facility] Last Admin: 12/03/18 09:39 Dose: 1 patch Metoprolol Succinate (Toprol Xl Tab*) 50 mg PO DAILY [facility] Last Admin: 12/03/18 09:41 Dose: 50 mg Pharmacy Profile Note (Lidocaine Patch Remove*) 1 note N/A 2100 [facility] Potassium Chloride (Klor Con Er Tab*) 20 meq PO BID [facility] Last Admin: 12/03/18 09:41 Dose: 20 meq Vital Signs - 8 hr 12/03/18 12/03/18 12:02 15:39 Temperature 96.8 F 97.0 F Pulse Rate 82 81 Respiratory 20 20 Rate Blood Pressure 126/59 130/61 (mmHg) O2 Sat by Pulse 96 99 Oximetry Oxygen Devices in Use Now: Nasal Cannula Appearance: Obese, white elderly male, sitting in chair, appearing in NAD Respiratory: Symmetrical Chest Expansion and Respiratory Effort, - - audible secretions with respirations; expiratory wheezing and diffuse rhonchi on auscultation Cardiovascular: NL Sounds; No Murmurs; No JVD, RRR Abdominal: - - abd soft, nontender, nondistended, no suprapubic tenderness Extremities: No Edema, No Clubbing, Cyanosis Skin: No Rash or Ulcers Neurological: Alert and Oriented x 3, NL Muscle Strength and Tone Result Diagrams: 12/03/18 05:56 12/03/18 05:56 Additional Lab and Data: Laboratory Results - last 24 hr 12/02/18 12/02/18 06:26 06:26 WBC 14.3 H RBC 3.88 L Hgb 11.9 L Hct 36 L MCV 91 MCH 31 MCHC 34 RDW 16 H Plt Count 208 MPV 7.2 L Neut % (Auto) 73.1 Lymph % (Auto) 15.2 [place] % (Auto) 11.2 Eos % (Auto) 0.1 Baso % (Auto) 0.4 Absolute Neuts (auto) 10.5 H Absolute Lymphs (auto) 2.2 Absolute Monos (auto) 1.6 H Absolute Eos (auto) 0.0 Absolute Basos (auto) 0.1 Absolute Nucleated RBC 0.0 Nucleated RBC % 0.0 Sodium 138 Potassium 3.4 L Chloride 103 Carbon Dioxide 31 Anion Gap 4 BUN 17 Creatinine 0.44 L Est GFR ( Amer) 226.7 Est GFR (Non-Af Amer) 187.4 BUN/Creatinine Ratio 38.6 H Glucose 97 Calcium 9.2 Magnesium 1.8 L Total Bilirubin 0.80 AST 17 ALT 16 Alkaline Phosphatase 94 Total Protein 5.7 L Albumin 3.3 Globulin 2.4 Albumin/Globulin Ratio 1.4 Microbiology and Other Data: Microbiology 11/24/18 15:35 Gram Stain - Final Sputum Trach Sputum Culture - Final YEAST Normal [place] 11/24/18 22:45 Urine Culture - Final Urine No Growth (<1,000 CFU/mL) 11/24/18 13:40 Nasal Screen MRSA (PCR) - Final Nasal Mrsa Not Detected Assess/Plan/Problems-Billing Assessment: 78 y/o male admitted for acute respiratory failure secondary to pneumonaie bibasilar with underlying CHF systolic and OHS and COPD s/p mechanical ventilation, extubated on 11/26/18 - Patient Problems (1) Acute on chronic respiratory failure with hypoxia and hypercapnia Current Visit: No Status: Acute Code(s): J96.21 - ACUTE AND CHRONIC RESPIRATORY FAILURE WITH HYPOXIA; J96.22 - ACUTE AND CHRONIC RESPIRATORY FAILURE WITH HYPERCAPNIA SNOMED Code(s): 61705539355744 Comment: - Patient had BiPaP with increased settings previously due to repeat ABG results and patient's lethargy first thing in the morning - Resp failure is multifactorial. Secondary to pneumonaie, CHF and COPD - S/P mechanical intubations At [facility] and transfer to [facility] ICU on sunday11/24/18 to the intensivit service. Extubated on 11/26/18 and transferred to the hospitalist service 11/27/18 - Completed 7 days of cefepime 1 gm and 5 days azithromycin 500 mg day. - Continue lasix 40 mg PO daily. - Diamox stopped 11/30. HCO3 29.6 and Carbon Dioxide 30. - Incentive spirometer, out of bed - Started mucinex BID - Good saturations on home oxygen requirement - Consulted Dr. Clemens, appreciate input (2) Atrial fibrillation Current Visit: No Status: Acute Code(s): I48.91 - UNSPECIFIED ATRIAL FIBRILLATION SNOMED Code(s): 95962890 Comment: - Rate controlled - s/p cardioversion on 11/27/18 evening. - Continue Multaq 400 mg bid as recommended by cardiology - Continue Eliquis 5 mg bid - Monitoring and replacing electrolytes as needed to keep K above 4 and Mag above 2 (3) Diarrhea Current Visit: Yes Status: Acute Code(s): R19.7 - DIARRHEA, UNSPECIFIED SNOMED Code(s): 10174265 Comment: -patient previously with leukocytosis and multiple episodes of diarrhea -stool cultures and c.diff PCR ordered, and unable to be collected as patient has not had any bowel movement since then -will d/c as likely not c.diff considering diarrhea stopped without intervention (4) Chronic pain Current Visit: Yes Status: Acute Code(s): G89.29 - OTHER CHRONIC PAIN SNOMED Code(s): 27513020 Comment: -minimizing opiate use for now in light of CAT call 2/2 opiate use -restarted home lidocaine patch to knee (5) CAD (coronary artery disease) Current Visit: No Status: Acute Code(s): I25.10 - ATHSCL HEART DISEASE OF [place] CORONARY ARTERY W/O ANG PCTRS SNOMED Code(s): 52048015 Comment: - Continue metoprolol (6) Chronic systolic congestive heart failure Current Visit: No Status: Acute Code(s): I50.22 - CHRONIC SYSTOLIC ( CONGESTIVE) HEART FAILURE SNOMED Code(s): 918830800 Comment: - CXR on 10/06 showing pulmonary edema, now resolved - No evidence of exacerbation - Echo in July shows EF 45-50%; now 40-45% during this hospitalization - Continue metoprolol, furosemide (7) Neurogenic bladder Current Visit: No Status: Acute Code(s): N31.9 - NEUROMUSCULAR DYSFUNCTION OF BLADDER, UNSPECIFIED SNOMED Code(s): 282151776 Comment: - Usually self caths at home, now he has chronic ellison (8) INDIGO (obstructive sleep apnea) Current Visit: No Status: Acute Code(s): G47.33 - OBSTRUCTIVE SLEEP APNEA ( ADULT) (PEDIATRIC) SNOMED Code(s): 90320799 Comment: - Continue BiPAP (9) Depression Current Visit: Yes Status: Acute Code(s): F32.9 - MAJOR DEPRESSIVE DISORDER , SINGLE EPISODE, UNSPECIFIED SNOMED Code(s): 06771339 Comment: -restarting home wellbutrin -continue home citalopram (10) DVT prophylaxis Current Visit: No Status: Acute Code(s): DCL5549 - SNOMED Code(s): 272391412 Comment: - [place] (11) Full code status Current Visit: No Status: Acute Code(s): Z78.9 - OTHER SPECIFIED HEALTH STATUS SNOMED Code(s): 887565776 Comment: - Patient is Full Code - Previous provider discussed with him and at bedside and insited on having him full code Status and Disposition: Inpatient. Discussed plan of care with today who will consider palliative care. Palliative care consult ordered.
[2018-12-03] MEDS: BuPROPion XL* 150 MG TAB.XL PO SCH (21:18)
[2018-12-03] MEDS: guaiFENesin ER TAB 600 MG PO SCH (21:19)
[2018-12-03] MEDS: Lidocaine Patch REMOVE* 1 NOTE MISC SCH (21:26)
[2018-12-04 05:56] LABS: ABS Eosinophils 0.3 10^3/ul (0-0.6); ABS Lymphocytes 1.8 10^3/ul (1.0-4.8); ABS Monocytes 1.2 10^3/ul (0-0.8); ABS Neutrophils 7.5 10^3/ul (1.5-7.7); Eosinophil % 2.8 %; Hematocrit 35 % (42-52); Hemoglobin 11.7 g/dL (14.0-18.0); Lymphocyte % 16.3 %; Mean Corpuscular HGB Conc 34 g/dL (31-36); Mean Corpuscular Hemoglobin 31 pg (27-31); Mean Corpuscular Volume 93 fL (80-94); Mean Platelet Volume 7.1 fL (7.4-10.4); Nucleated Red Blood Cells % 0.1; Platelet Count 192 10^3/uL (150-450); Red Blood Count 3.72 10^6 /uL (4.18-5.48); Red Cell Distribution Width 17 % (10-15); White Blood Count 10.8 10^3/uL (3.5-10.8)
[2018-12-04 06:20] LABS: BUN/Creatinine Ratio 43.1 (8-20); Calcium 8.6 mg/dL (8.6-10.3); EGFR African American 191.2 (>60); Magnesium 1.8 mg/dL (1.9-2.7); Potassium 3.9 mmol/L (3.5-5.0)
[2018-12-04] MEDS: guaiFENesin ER TAB 600 MG PO SCH ×2 (08:05→20:05)
[2018-12-04] MEDS: Atorvastatin* 10 MG TAB PO SCH (08:05)
[2018-12-04] MEDS: Apixaban* 5 MG TAB PO SCH ×2 (08:05→20:06)
[2018-12-04] MEDS: Acetaminophen TAB* 325 MG PO PRN ×2 (08:05→20:03)
[2018-12-04] MEDS: Furosemide TAB* 40 MG PO SCH (08:05)
[2018-12-04] MEDS: Metoprolol Succinate XL TAB* 50 MG PO SCH (08:05)
[2018-12-04] MEDS: Escitalopram * 10 MG TAB PO SCH (08:05)
[2018-12-04] MEDS: Dronedarone TAB* 400 MG PO SCH ×2 (08:05→17:08)
[2018-12-04] MEDS: Potassium Chlor TAB* 20 MEQ TAB.ER PO SCH ×2 (08:05→20:06)
[2018-12-04] MEDS: BuPROPion XL* 150 MG TAB.XL PO SCH (08:06)
[2018-12-04] MEDS: Lidocaine PATCH 5%* 1 PATCH TRANSDERM SCH (08:06)
[2018-12-04] MEDS ORDERED: Magnesium Oxide TAB* 400 MG PO ONE (08:44)
[2018-12-04] MEDS ORDERED: Oxybutynin XL TAB* 5 MG PO SCH (15:00)
--- NOTE | 2018-12-04 15:01 | PN ---
Subjective Date of Service: 12/04/18 Interval History: Patient c/o bladder spasms. Typically straight caths at home for neurogenic bladder. Tells me it feels like "there is pressure in my butt." Other than the bladder spasms, denies abd pain. Denies chest pain, difficulty breathing at rest , fever/chills. Feels his cough is improved. Past Medical History: Unchanged from Admission Objective Active Medications: Acetaminophen (Tylenol Tab*) 650 mg PO Q6H PRN PRN Reason: PAIN - MILD Last Admin: 12/04/18 08:05 Dose: 650 mg Albuterol/Ipratropium (Duoneb (Albuterol 2.5 Mg/Ipratropium 0.5 Mg)) 1 neb INH Q6H PRN PRN Reason: SOB/WHEEZING Last Admin: 11/26/18 13:06 Dose: 1 neb Apixaban (Eliquis*) 5 mg PO BID [facility] Last Admin: 12/04/18 08:05 Dose: 5 mg Atorvastatin Calcium (Lipitor*) 10 mg PO DAILY [facility]; Protocol Last Admin: 12/04/18 08:05 Dose: 10 mg Bupropion HCl (Wellbutrin Xl *) 150 mg PO DAILY [facility] Last Admin: 12/04/18 08:06 Dose: 150 mg Dronedarone (Multaq Tab*) 400 mg PO BID WITH MEALS [facility] Last Admin: 12/04/18 08:05 Dose: 400 mg Escitalopram Oxalate (Lexapro *) 10 mg PO DAILY [facility] Last Admin: 12/04/18 08:05 Dose: 10 mg Furosemide (Lasix Tab*) 40 mg PO DAILY [facility] Last Admin: 12/04/18 08:05 Dose: 40 mg Guaifenesin (Mucinex*) 600 mg PO BID [facility] Last Admin: 12/04/18 08:05 Dose: 600 mg Lidocaine (Lidoderm 5% Patch*) 1 patch TRANSDERM DAILY [facility] Last Admin: 12/04/18 08:06 Dose: Not Given Metoprolol Succinate (Toprol Xl Tab*) 50 mg PO DAILY [facility] Last Admin: 12/04/18 08:05 Dose: 50 mg Pharmacy Profile Note (Lidocaine Patch Remove*) 1 note N/A 2100 [facility] Last Admin: 12/03/18 21:26 Dose: 1 note Potassium Chloride (Klor Con Er Tab*) 20 meq PO BID [facility] Last Admin: 12/04/18 08:05 Dose: 20 meq Vital Signs - 8 hr 12/04/18 12/04/18 12/04/18 07:17 08:00 08:41 Temperature 98.1 F Pulse Rate 72 66 Respiratory 18 18 20 Rate Blood Pressure 132/71 (mmHg) O2 Sat by Pulse 100 96 Oximetry 12/04/18 11:46 Temperature 98.0 F Pulse Rate 72 Respiratory 20 Rate Blood Pressure 89/54 (mmHg) O2 Sat by Pulse 100 Oximetry Oxygen Devices in Use Now: Nasal Cannula Appearance: Obese, elderly white male, sitting upright in chair, in NAD Eyes: No Scleral Icterus, PERRLA Ears/Nose/Mouth/Throat: Mucous Membranes Moist Neck: NL Appearance and Movements; NL JVP Respiratory: Symmetrical Chest Expansion and Respiratory Effort, - - faint expiratory wheezes in RLL and NICOLA Cardiovascular: NL Sounds; No Murmurs; No JVD, - - irregularly irregular rhythm Abdominal: - - abd soft, nontender, nondistended Extremities: No Edema, No Clubbing, Cyanosis Skin: No Rash or Ulcers Neurological: - - alert and oriented to self and place Result Diagrams: 12/04/18 05:44 12/04/18 05:44 Additional Lab and Data: Laboratory Results - last 24 hr 12/02/18 12/02/18 06:26 06:26 WBC 14.3 H RBC 3.88 L Hgb 11.9 L Hct 36 L MCV 91 MCH 31 MCHC 34 RDW 16 H Plt Count 208 MPV 7.2 L Neut % (Auto) 73.1 Lymph % (Auto) 15.2 [place] % (Auto) 11.2 Eos % (Auto) 0.1 Baso % (Auto) 0.4 Absolute Neuts (auto) 10.5 H Absolute Lymphs (auto) 2.2 Absolute Monos (auto) 1.6 H Absolute Eos (auto) 0.0 Absolute Basos (auto) 0.1 Absolute Nucleated RBC 0.0 Nucleated RBC % 0.0 Sodium 138 Potassium 3.4 L Chloride 103 Carbon Dioxide 31 Anion Gap 4 BUN 17 Creatinine 0.44 L Est GFR ( Amer) 226.7 Est GFR (Non-Af Amer) 187.4 BUN/Creatinine Ratio 38.6 H Glucose 97 Calcium 9.2 Magnesium 1.8 L Total Bilirubin 0.80 AST 17 ALT 16 Alkaline Phosphatase 94 Total Protein 5.7 L Albumin 3.3 Globulin 2.4 Albumin/Globulin Ratio 1.4 Microbiology and Other Data: Microbiology 11/24/18 15:35 Gram Stain - Final Sputum Trach Sputum Culture - Final YEAST Normal [place] 11/24/18 22:45 Urine Culture - Final Urine No Growth (<1,000 CFU/mL) 11/24/18 13:40 Nasal Screen MRSA (PCR) - Final Nasal Mrsa Not Detected Assess/Plan/Problems-Billing Assessment: 78 y/o male admitted for acute respiratory failure secondary to pneumonaie bibasilar with underlying CHF systolic and OHS and COPD s/p mechanical ventilation, extubated on 11/26/18 - Patient Problems (1) Bladder spasm Current Visit: Yes Status: Acute Comment: -c/o bladder spasm -likely due to ellison pressing prostate -d/c indwelling ellison, will straight cath TID -will consider oxybutynin if not improved (2) Acute on chronic respiratory failure with hypoxia and hypercapnia Current Visit: No Status: Acute Code(s): J96.21 - ACUTE AND CHRONIC RESPIRATORY FAILURE WITH HYPOXIA; J96.22 - ACUTE AND CHRONIC RESPIRATORY FAILURE WITH HYPERCAPNIA SNOMED Code(s): 86814628856572 Comment: - Patient had BiPaP with increased settings previously due to repeat ABG results and patient's lethargy first thing in the morning - Resp failure is multifactorial. Secondary to pneumonia, CHF and COPD - Complete course of azithromycin and cefepime - S/P mechanical intubations At [facility] and transfer to [facility] ICU on sunday11/24/18 to the intensivit service. Extubated on 11/26/18 and transferred to the hospitalist service 11/27/18 - Continue lasix, mucinex - Incentive spirometer, out of bed - Good saturations on home oxygen requirement - Consulted Dr. Clemens, appreciate input, patient and are not interested in palliative services at this time (3) Atrial fibrillation Current Visit: No Status: Acute Code(s): I48.91 - UNSPECIFIED ATRIAL FIBRILLATION SNOMED Code(s): 25805722 Comment: - Rate controlled - s/p cardioversion on 11/27/18 evening. - Continue Multaq 400 mg bid as recommended by cardiology - Continue Eliquis 5 mg bid - Monitoring and replacing electrolytes as needed to keep K above 4 and Mag above 2 (4) Diarrhea Current Visit: Yes Status: Acute Code(s): R19.7 - DIARRHEA, UNSPECIFIED SNOMED Code(s): 88971645 Comment: -resolved (5) Chronic pain Current Visit: Yes Status: Acute Code(s): G89.29 - OTHER CHRONIC PAIN SNOMED Code(s): 78279532 Comment: -minimizing opiate use for now in light of CAT call 2/2 opiate use -continue lidocaine patch (6) CAD (coronary artery disease) Current Visit: No Status: Acute Code(s): I25.10 - ATHSCL HEART DISEASE OF [place] CORONARY ARTERY W/O ANG PCTRS SNOMED Code(s): 64172570 Comment: - Continue metoprolol (7) Chronic systolic congestive heart failure Current Visit: No Status: Acute Code(s): I50.22 - CHRONIC SYSTOLIC ( CONGESTIVE) HEART FAILURE SNOMED Code(s): 041810919 Comment: - CXR on 10/06 showing pulmonary edema, now resolved - No evidence of exacerbation - Echo in July shows EF 45-50%; now 40-45% during this hospitalization - Continue metoprolol, furosemide (8) Neurogenic bladder Current Visit: No Status: Acute Code(s): N31.9 - NEUROMUSCULAR DYSFUNCTION OF BLADDER, UNSPECIFIED SNOMED Code(s): 154756362 Comment: - Usually self caths at home, now he has chronic ellison (9) INDIGO (obstructive sleep apnea) Current Visit: No Status: Acute Code(s): G47.33 - OBSTRUCTIVE SLEEP APNEA ( ADULT) (PEDIATRIC) SNOMED Code(s): 23246159 Comment: - Continue BiPAP (10) Depression Current Visit: Yes Status: Acute Code(s): F32.9 - MAJOR DEPRESSIVE DISORDER , SINGLE EPISODE, UNSPECIFIED SNOMED Code(s): 86712293 Comment: -restarting home wellbutrin -continue home citalopram (11) Lung mass Current Visit: Yes Status: Acute Code(s): R91.8 - OTHER NONSPECIFIC ABNORMAL FINDING OF LUNG FIELD SNOMED Code(s): 906867042 Comment: - Repeat CT with contrast revealed that previously suspicious suprahilar mass is likely atelectasis - Likely would benefit from repeat imaging when patient is not acutely ill (12) DVT prophylaxis Current Visit: No Status: Acute Code(s): BSZ2674 - SNOMED Code(s): 688211304 Comment: - Alequis (13) Full code status Current Visit: No Status: Acute Code(s): Z78.9 - OTHER SPECIFIED HEALTH STATUS SNOMED Code(s): 569528927 Comment: - Patient is Full Code - Previous provider discussed with him and at bedside and insited on having him full code Status and Disposition: Inpatient. Pending GIO placement.
[2018-12-04] MEDS: Ondansetron INJ* 2 MG/ML VIAL IV PRN (18:57)
[2018-12-04] MEDS: Lidocaine Patch REMOVE* 1 NOTE MISC SCH (20:07)
[2018-12-04] MEDS ORDERED: Calcium Carbonate CHEW TAB* 500 MG (TUMS) PO PRN (22:06)
[2018-12-04] MEDS ORDERED: oxyCODONE TAB* 5 MG TAB PO PRN (22:07)
[2018-12-04] MEDS ORDERED: oxyCODONE TAB* 5 MG TAB PO ONE (22:18)
[2018-12-05] MEDS: Escitalopram * 10 MG TAB PO SCH (09:01)
[2018-12-05] MEDS: Atorvastatin* 10 MG TAB PO SCH (09:01)
[2018-12-05] MEDS: Metoprolol Succinate XL TAB* 50 MG PO SCH (09:01)
[2018-12-05] MEDS: BuPROPion XL* 150 MG TAB.XL PO SCH (09:01)
[2018-12-05] MEDS: Apixaban* 5 MG TAB PO SCH ×2 (09:01→20:34)
[2018-12-05] MEDS: guaiFENesin ER TAB 600 MG PO SCH ×2 (09:01→20:34)
[2018-12-05] MEDS: Potassium Chlor TAB* 20 MEQ TAB.ER PO SCH ×2 (09:01→20:34)
[2018-12-05] MEDS: Furosemide TAB* 40 MG PO SCH (09:01)
[2018-12-05] MEDS: Lidocaine PATCH 5%* 1 PATCH TRANSDERM SCH (09:07)
[2018-12-05] MEDS: Dronedarone TAB* 400 MG PO SCH ×2 (09:10→16:51)
[2018-12-05] MEDS ORDERED: Ketorolac INJ* 15 MG/ML 1 ML VIAL IV PUSH PRN (11:10)
[2018-12-05] MEDS: Oxybutynin TAB* 5 MG PO SCH (11:37)
[2018-12-05 12:52] LABS: BUN/Creatinine Ratio 39.6 (8-20); Calcium 8.2 mg/dL (8.6-10.3); EGFR African American 205.1 (>60); EGFR Non-African American 169.5 (>60); Magnesium 1.6 mg/dL (1.9-2.7); Potassium 4.2 mmol/L (3.5-5.0)
[2018-12-05] MEDS ORDERED: Acetaminophen TAB* 325 MG PO SCH (14:00)
--- NOTE | 2018-12-05 14:07 | PN ---
Subjective Date of Service: 12/05/18 Interval History: Patient c/o knee pain today. Reportedly refusing tylenol. We discussed trying tylenol at a higher dose. Ultimately toradol helped pain. At time of evaluation , tells me his breathing feels comfortable. Patient was c/o bladder discomfort in the AM but at time of evaluation tells me this had resolved. Bladder spasms are no longer occurring per patient. Denies chest pain, fever/chills, abd pain. Cough continues with clear sputum. Past Medical History: Unchanged from Admission Objective Active Medications: Acetaminophen (Tylenol Tab*) 975 mg PO TID [facility] Albuterol/Ipratropium (Duoneb (Albuterol 2.5 Mg/Ipratropium 0.5 Mg)) 1 neb INH Q6H PRN PRN Reason: SOB/WHEEZING Last Admin: 11/26/18 13:06 Dose: 1 neb Apixaban (Eliquis*) 5 mg PO BID [facility] Last Admin: 12/05/18 09:01 Dose: 5 mg Atorvastatin Calcium (Lipitor*) 10 mg PO DAILY [facility]; Protocol Last Admin: 12/05/18 09:01 Dose: 10 mg Bupropion HCl (Wellbutrin Xl *) 150 mg PO DAILY [facility] Last Admin: 12/05/18 09:01 Dose: 150 mg Calcium Carbonate (Tums*) 500 mg PO Q4H PRN PRN Reason: DYSPNEA Dronedarone (Multaq Tab*) 400 mg PO BID WITH MEALS [facility] Last Admin: 12/05/18 09:10 Dose: 400 mg Escitalopram Oxalate (Lexapro *) 10 mg PO DAILY [facility] Last Admin: 12/05/18 09:01 Dose: 10 mg Furosemide (Lasix Tab*) 40 mg PO DAILY [facility] Last Admin: 12/05/18 09:01 Dose: 40 mg Guaifenesin (Mucinex*) 600 mg PO BID [facility] Last Admin: 12/05/18 09:01 Dose: 600 mg Ketorolac Tromethamine (Toradol Inj*) 15 mg IV PUSH Q6H PRN PRN Reason: PAIN - MILD Last Admin: 12/05/18 11:56 Dose: 15 mg Lidocaine (Lidoderm 5% Patch*) 1 patch TRANSDERM DAILY [facility] Last Admin: 12/05/18 09:07 Dose: 1 patch Metoprolol Succinate (Toprol Xl Tab*) 50 mg PO DAILY [facility] Last Admin: 12/05/18 09:01 Dose: 50 mg Ondansetron HCl (Zofran Inj*) 4 mg IV Q4H PRN PRN Reason: NAUSEA Last Admin: 12/04/18 18:57 Dose: 4 mg Oxybutynin Chloride (Ditropan Tab*) 5 mg PO DAILY [facility] Last Admin: 12/05/18 11:37 Dose: 5 mg Pharmacy Profile Note (Lidocaine Patch Remove*) 1 note N/A 2100 [facility] Last Admin: 12/04/18 20:07 Dose: Not Given Potassium Chloride (Klor Con Er Tab*) 20 meq PO BID [facility] Last Admin: 12/05/18 09:01 Dose: 20 meq Vital Signs - 8 hr 12/05/18 12/05/18 12/05/18 08:30 09:23 11:30 Temperature 97.3 F 97.2 F Pulse Rate 63 70 Respiratory 20 20 20 Rate Blood Pressure 123/53 92/46 (mmHg) O2 Sat by Pulse 98 98 Oximetry 12/05/18 11:41 Temperature Pulse Rate Respiratory Rate Blood Pressure 94/56 (mmHg) O2 Sat by Pulse Oximetry Oxygen Devices in Use Now: Nasal Cannula Appearance: Obese, elderly white male, laying in bed, appearing in NAD Eyes: No Scleral Icterus, PERRLA Ears/Nose/Mouth/Throat: Mucous Membranes Moist Neck: NL Appearance and Movements; NL JVP Respiratory: Symmetrical Chest Expansion and Respiratory Effort, - - crackles in bilateral lung bases and in bilateral mid lobes Cardiovascular: NL Sounds; No Murmurs; No JVD, RRR Extremities: No Edema, No Clubbing, Cyanosis Skin: No Rash or Ulcers Neurological: Alert and Oriented x 3 Result Diagrams: 12/04/18 05:44 12/05/18 12:15 Additional Lab and Data: Laboratory Results - last 24 hr 12/02/18 12/02/18 06:26 06:26 WBC 14.3 H RBC 3.88 L Hgb 11.9 L Hct 36 L MCV 91 MCH 31 MCHC 34 RDW 16 H Plt Count 208 MPV 7.2 L Neut % (Auto) 73.1 Lymph % (Auto) 15.2 [place] % (Auto) 11.2 Eos % (Auto) 0.1 Baso % (Auto) 0.4 Absolute Neuts (auto) 10.5 H Absolute Lymphs (auto) 2.2 Absolute Monos (auto) 1.6 H Absolute Eos (auto) 0.0 Absolute Basos (auto) 0.1 Absolute Nucleated RBC 0.0 Nucleated RBC % 0.0 Sodium 138 Potassium 3.4 L Chloride 103 Carbon Dioxide 31 Anion Gap 4 BUN 17 Creatinine 0.44 L Est GFR ( Amer) 226.7 Est GFR (Non-Af Amer) 187.4 BUN/Creatinine Ratio 38.6 H Glucose 97 Calcium 9.2 Magnesium 1.8 L Total Bilirubin 0.80 AST 17 ALT 16 Alkaline Phosphatase 94 Total Protein 5.7 L Albumin 3.3 Globulin 2.4 Albumin/Globulin Ratio 1.4 Microbiology and Other Data: Microbiology 11/24/18 15:35 Gram Stain - Final Sputum Trach Sputum Culture - Final YEAST Normal [place] 11/24/18 22:45 Urine Culture - Final Urine No Growth (<1,000 CFU/mL) 11/24/18 13:40 Nasal Screen MRSA (PCR) - Final Nasal Mrsa Not Detected Assess/Plan/Problems-Billing Assessment: 78 y/o male admitted for acute respiratory failure secondary to pneumonaie bibasilar with underlying CHF systolic and OHS and COPD s/p mechanical ventilation, extubated on 11/26/18 - Patient Problems (1) Palpitations Current Visit: Yes Status: Acute Code(s): R00.2 - PALPITATIONS SNOMED Code (s): 09847491 Comment: -patient c/o palpitations this morning, resolved by time of evaluation -EKG and multiple rhythm strips demonstrate frequent PACs. Magnesium is 1.6 today -replacing with 2 gram magnesium sulfate IV -patient may benefit from po magnesium replacement daily, will continue to monitor (2) Bladder spasm Current Visit: Yes Status: Acute Comment: -bladder spasms resolved, but bladder discomfort continued this AM -started oxybutynin, which the patient's tells me he has been on in the past -cont straight cath TID (3) Acute on chronic respiratory failure with hypoxia and hypercapnia Current Visit: No Status: Acute Code(s): J96.21 - ACUTE AND CHRONIC RESPIRATORY FAILURE WITH HYPOXIA; J96.22 - ACUTE AND CHRONIC RESPIRATORY FAILURE WITH HYPERCAPNIA SNOMED Code(s): 54149450654337 Comment: - Resp failure is multifactorial. Secondary to pneumonia, CHF and COPD - Complete course of azithromycin and cefepime - S/P mechanical intubations At [facility] and transfer to [facility] ICU on sunday11/24/18 to the intensivit service. Extubated on 11/26/18 and transferred to the hospitalist service 11/27/18 - Consulted Dr. Clemens, appreciate input, patient and are not interested in palliative services at this time - Continue bipap at night - Continue lasix, mucinex - Incentive spirometer, out of bed - Good saturations on home oxygen requirement; lungs sound less clear today but wheezing is resolved, encouraged incentive spirometry further (4) Atrial fibrillation Current Visit: No Status: Acute Code(s): I48.91 - UNSPECIFIED ATRIAL FIBRILLATION SNOMED Code(s): 62768876 Comment: - Palpitations as discussed above - Rate controlled - s/p cardioversion on 11/27/18 evening. - Continue Multaq 400 mg bid as recommended by cardiology - Continue Eliquis 5 mg bid - Monitoring and replacing electrolytes as needed to keep K above 4 and Mag above 2 (5) Chronic pain Current Visit: Yes Status: Acute Code(s): G89.29 - OTHER CHRONIC PAIN SNOMED Code(s): 68267865 Comment: -minimizing opiate use for now in light of CAT call 2/2 opiate use -continue lidocaine patch -patient having worsening pain overnight, will order perocet 5/325 q6h for severe pain (per Dr. Anton's rec) and toradol for moderate pain (6) CAD (coronary artery disease) Current Visit: No Status: Acute Code(s): I25.10 - ATHSCL HEART DISEASE OF [place] CORONARY ARTERY W/O ANG PCTRS SNOMED Code(s): 11676643 Comment: - Continue metoprolol (7) Chronic systolic congestive heart failure Current Visit: No Status: Acute Code(s): I50.22 - CHRONIC SYSTOLIC ( CONGESTIVE) HEART FAILURE SNOMED Code(s): 523579784 Comment: - CXR on 10/06 showing pulmonary edema, now resolved - No evidence of exacerbation - Echo in July shows EF 45-50%; now 40-45% during this hospitalization - Continue metoprolol, furosemide (8) Neurogenic bladder Current Visit: No Status: Acute Code(s): N31.9 - NEUROMUSCULAR DYSFUNCTION OF BLADDER, UNSPECIFIED SNOMED Code(s): 495339993 Comment: - Usually self caths at home, continue straight caths (9) INDIGO (obstructive sleep apnea) Current Visit: No Status: Acute Code(s): G47.33 - OBSTRUCTIVE SLEEP APNEA ( ADULT) (PEDIATRIC) SNOMED Code(s): 46697130 Comment: - Continue BiPAP (10) Depression Current Visit: Yes Status: Acute Code(s): F32.9 - MAJOR DEPRESSIVE DISORDER , SINGLE EPISODE, UNSPECIFIED SNOMED Code(s): 70984538 Comment: -continue home citalopram and wellbutrin -QT is not prolonged despite dronedarone in combination with citalopram (11) Lung mass Current Visit: Yes Status: Acute Code(s): R91.8 - OTHER NONSPECIFIC ABNORMAL FINDING OF LUNG FIELD SNOMED Code(s): 146001501 Comment: - Repeat CT with contrast revealed that previously suspicious suprahilar mass is likely atelectasis - Likely would benefit from repeat imaging when patient is not acutely ill (12) DVT prophylaxis Current Visit: No Status: Acute Code(s): EAG3715 - SNOMED Code(s): 973875629 Comment: - [place] (13) Full code status Current Visit: No Status: Acute Code(s): Z78.9 - OTHER SPECIFIED HEALTH STATUS SNOMED Code(s): 050042006 Comment: - Patient is Full Code - Previous provider discussed with him and at bedside and insited on having him full code Status and Disposition: Inpatient. Pending GIO placement.
[2018-12-05] MEDS ORDERED: Magnesium Sulfate 2 GM IV* 2 GM/50 ML BAG IVPB ONE (14:13)
[2018-12-05] MEDS ORDERED: oxyCODONE/Acetamin 5/325 MG* TAB PO PRN (16:33)
[2018-12-05] MEDS: Lidocaine Patch REMOVE* 1 NOTE MISC SCH (20:43)
[2018-12-05] MEDS: Ketorolac INJ* 15 MG/ML 1 ML VIAL IV PUSH PRN (20:56)
[2018-12-06 05:37] LABS: Urine Appearance Cloudy; Urine Bacteria Absent (Absent); Urine Bilirubin Negative (Negative); Urine Blood 1+ (Negative); Urine Color Yellow; Urine Glucose Negative (Negative); Urine Ketones Negative (Negative); Urine Nitrite Negative (Negative); Urine Protein Negative (Negative); Urine Red Blood Cell 2+(6-10/hpf) (Absent); Urine Specific Gravity 1.023 (1.010-1.030); Urine Urobilinogen Negative (Negative); Urine White Blood Cell 3+(>20/hpf) (Absent)
[2018-12-06 06:22] LABS: BUN/Creatinine Ratio 43.8 (8-20); Blood Urea Nitrogen 21 mg/dL (6-24); CO2 Carbon Dioxide 37 mmol/L (22-32); Calcium 8.4 mg/dL (8.6-10.3); Chloride 102 mmol/L (101-111); EGFR African American 205.1 (>60); EGFR Non-African American 169.5 (>60); Glucose 96 mg/dL (70-100); Potassium 4.2 mmol/L (3.5-5.0); Sodium 139 mmol/L (135-145)
[2018-12-06] MEDS: Potassium Chlor TAB* 20 MEQ TAB.ER PO SCH ×2 (08:46→20:27)
[2018-12-06] MEDS: Atorvastatin* 10 MG TAB PO SCH (08:47)
[2018-12-06] MEDS: guaiFENesin ER TAB 600 MG PO SCH ×2 (08:47→20:27)
[2018-12-06] MEDS: Metoprolol Succinate XL TAB* 50 MG PO SCH (08:47)
[2018-12-06] MEDS: Lidocaine PATCH 5%* 1 PATCH TRANSDERM SCH (08:47)
[2018-12-06] MEDS: Furosemide TAB* 40 MG PO SCH (08:47)
[2018-12-06] MEDS: BuPROPion XL* 150 MG TAB.XL PO SCH (08:47)
[2018-12-06] MEDS: Apixaban* 5 MG TAB PO SCH ×2 (08:47→20:27)
[2018-12-06] MEDS: Oxybutynin TAB* 5 MG PO SCH (08:47)
[2018-12-06] MEDS: Escitalopram * 10 MG TAB PO SCH (08:47)
[2018-12-06] MEDS: Dronedarone TAB* 400 MG PO SCH ×2 (08:47→17:23)
[2018-12-06] MEDS: Ketorolac INJ* 15 MG/ML 1 ML VIAL IV PUSH PRN ×2 (08:48→20:31)
--- NOTE | 2018-12-06 12:49 | PN ---
Subjective Date of Service: 12/06/18 Interval History: Patient is in good spirits today. He went outside with nursing and feels his mood is better at time of evaluation. Feels his chronic knee and back pain are well controlled. Denies difficulty breathing, chest pain, abd pain, nausea. Later I am told that patient met with tongue stitcher an he expressed feeling more depressed lately for quite some time. Past Medical History: Unchanged from Admission Objective Active Medications: Acetaminophen (Tylenol Tab*) 975 mg PO TID PRN PRN Reason: MILD PAIN or TEMP > 100.4 Albuterol/Ipratropium (Duoneb (Albuterol 2.5 Mg/Ipratropium 0.5 Mg)) 1 neb INH Q6H PRN PRN Reason: SOB/WHEEZING Last Admin: 11/26/18 13:06 Dose: 1 neb Apixaban (Eliquis*) 5 mg PO BID [facility] Last Admin: 12/06/18 08:47 Dose: 5 mg Atorvastatin Calcium (Lipitor*) 10 mg PO DAILY [facility]; Protocol Last Admin: 12/06/18 08:47 Dose: 10 mg Bupropion HCl (Wellbutrin Xl *) 150 mg PO DAILY [facility] Last Admin: 12/06/18 08:47 Dose: 150 mg Calcium Carbonate (Tums*) 500 mg PO Q4H PRN PRN Reason: DYSPNEA Dronedarone (Multaq Tab*) 400 mg PO BID WITH MEALS [facility] Last Admin: 12/06/18 08:47 Dose: 400 mg Escitalopram Oxalate (Lexapro *) 10 mg PO DAILY [facility] Last Admin: 12/06/18 08:47 Dose: 10 mg Furosemide (Lasix Tab*) 40 mg PO DAILY [facility] Last Admin: 12/06/18 08:47 Dose: 40 mg Guaifenesin (Mucinex*) 600 mg PO BID [facility] Last Admin: 12/06/18 08:47 Dose: 600 mg Ketorolac Tromethamine (Toradol Inj*) 15 mg IV PUSH Q6H PRN PRN Reason: PAIN - MODERATE Last Admin: 12/06/18 08:48 Dose: 15 mg Lidocaine (Lidoderm 5% Patch*) 1 patch TRANSDERM DAILY [facility] Last Admin: 12/06/18 08:47 Dose: 1 patch Metoprolol Succinate (Toprol Xl Tab*) 50 mg PO DAILY [facility] Last Admin: 12/06/18 08:47 Dose: 50 mg Ondansetron HCl (Zofran Inj*) 4 mg IV Q4H PRN PRN Reason: NAUSEA Last Admin: 12/04/18 18:57 Dose: 4 mg Oxybutynin Chloride (Ditropan Tab*) 5 mg PO DAILY [facility] Last Admin: 12/06/18 08:47 Dose: 5 mg Oxycodone/Acetaminophen (Percocet 5/325 Tab*) 1 tab PO Q6H PRN PRN Reason: severe pain breakthrough Pharmacy Profile Note (Lidocaine Patch Remove*) 1 note N/A 2100 [facility] Last Admin: 12/05/18 20:43 Dose: 1 note Potassium Chloride (Klor Con Er Tab*) 20 meq PO BID [facility] Last Admin: 12/06/18 08:46 Dose: 20 meq Vital Signs - 8 hr 12/06/18 12/06/18 12/06/18 08:20 10:47 12:00 Temperature 97.2 F 97.7 F Pulse Rate 72 70 Respiratory 20 20 20 Rate Blood Pressure 123/50 98/53 (mmHg) O2 Sat by Pulse 99 100 Oximetry Oxygen Devices in Use Now: Nasal Cannula Appearance: Obese, white male, laying upbright in bed, appearing in NAD, at bedside Eyes: No Scleral Icterus, PERRLA Ears/Nose/Mouth/Throat: Mucous Membranes Moist Neck: NL Appearance and Movements; NL JVP Respiratory: Symmetrical Chest Expansion and Respiratory Effort, - - faint rhonchi in right lower lobe, otherwise clear Cardiovascular: NL Sounds; No Murmurs; No JVD, - - irregularly irregular rhythm Abdominal: - - abd soft, nontender, nondistended Extremities: No Edema, No Clubbing, Cyanosis Skin: No Rash or Ulcers Neurological: Alert and Oriented x 3, - - no focal deficits Result Diagrams: 12/04/18 05:44 12/06/18 05:40 Additional Lab and Data: Laboratory Results - last 24 hr 12/02/18 12/02/18 06:26 06:26 WBC 14.3 H RBC 3.88 L Hgb 11.9 L Hct 36 L MCV 91 MCH 31 MCHC 34 RDW 16 H Plt Count 208 MPV 7.2 L Neut % (Auto) 73.1 Lymph % (Auto) 15.2 [place] % (Auto) 11.2 Eos % (Auto) 0.1 Baso % (Auto) 0.4 Absolute Neuts (auto) 10.5 H Absolute Lymphs (auto) 2.2 Absolute Monos (auto) 1.6 H Absolute Eos (auto) 0.0 Absolute Basos (auto) 0.1 Absolute Nucleated RBC 0.0 Nucleated RBC % 0.0 Sodium 138 Potassium 3.4 L Chloride 103 Carbon Dioxide 31 Anion Gap 4 BUN 17 Creatinine 0.44 L Est GFR ( Amer) 226.7 Est GFR (Non-Af Amer) 187.4 BUN/Creatinine Ratio 38.6 H Glucose 97 Calcium 9.2 Magnesium 1.8 L Total Bilirubin 0.80 AST 17 ALT 16 Alkaline Phosphatase 94 Total Protein 5.7 L Albumin 3.3 Globulin 2.4 Albumin/Globulin Ratio 1.4 Microbiology and Other Data: Microbiology 11/24/18 15:35 Gram Stain - Final Sputum Trach Sputum Culture - Final YEAST Normal [place] 11/24/18 22:45 Urine Culture - Final Urine No Growth (<1,000 CFU/mL) 11/24/18 13:40 Nasal Screen MRSA (PCR) - Final Nasal Mrsa Not Detected Assess/Plan/Problems-Billing Assessment: 78 y/o male admitted for acute respiratory failure secondary to bibasilar pneumoniae with underlying systolic CHF and and COPD s/p mechanical ventilation , extubated on 11/26/18 - Patient Problems (1) Acute on chronic respiratory failure with hypoxia and hypercapnia Current Visit: No Status: Acute Code(s): J96.21 - ACUTE AND CHRONIC RESPIRATORY FAILURE WITH HYPOXIA; J96.22 - ACUTE AND CHRONIC RESPIRATORY FAILURE WITH HYPERCAPNIA SNOMED Code(s): 27841198519898 Comment: - Resp failure is multifactorial. Secondary to pneumonia, CHF and COPD - Complete course of azithromycin and cefepime - S/P mechanical intubations at [facility] and transfer to [facility] ICU on sunday11/24/18 to the toy assembly supervisor service. Extubated on 11/26/18 and transferred to the hospitalist service 11/27/18 - Consulted Dr. Clemens, appreciate input, patient and are not interested in palliative services at this time - Continue bipap at night - Continue lasix, mucinex - Incentive spirometer, out of bed - Good saturations on home oxygen requirement; lungs sound quite clear today without wheezing (2) Palpitations Current Visit: Yes Status: Acute Code(s): R00.2 - PALPITATIONS SNOMED Code (s): 03534043 Comment: -symptomatic palpitations resolved -EKG and multiple rhythm strips demonstrate frequent PACs on 12/05 when mag was 1.6 -mag>2 and K>4 today -patient may benefit from po magnesium replacement daily, will continue to monitor (3) Bladder spasm Current Visit: Yes Status: Acute Comment: -bladder discomfort resolved -started oxybutynin, which the patient's tells me he has been on in the past -cont straight cath TID instead of indwelling ellison (4) Depression Current Visit: Yes Status: Acute Code(s): F32.9 - MAJOR DEPRESSIVE DISORDER , SINGLE EPISODE, UNSPECIFIED SNOMED Code(s): 21858170 Comment: -continue wellbutrin -increasing citalopram to 20 mg given c/o continued feelings of depression to tongue stitcher -QT is not prolonged despite dronedarone in combination with citalopram (5) Atrial fibrillation Current Visit: No Status: Acute Code(s): I48.91 - UNSPECIFIED ATRIAL FIBRILLATION SNOMED Code(s): 24611307 Comment: - Palpitations as discussed above - Rate controlled - s/p cardioversion on 11/27/18 evening. - Continue Multaq 400 mg bid as recommended by cardiology - Continue Eliquis 5 mg bid - Monitoring and replacing electrolytes as needed to keep K above 4 and Mag above 2 (6) Chronic pain Current Visit: Yes Status: Acute Code(s): G89.29 - OTHER CHRONIC PAIN SNOMED Code(s): 99225344 Comment: -minimizing opiate use for now in light of CAT call 2/2 opiate use -continue lidocaine patch -continue perocet 5/325 q6h for severe pain (per Dr. Anton's rec) and toradol for moderate pain (7) CAD (coronary artery disease) Current Visit: No Status: Acute Code(s): I25.10 - ATHSCL HEART DISEASE OF [place] CORONARY ARTERY W/O ANG PCTRS SNOMED Code(s): 70342471 Comment: - Continue metoprolol (8) Chronic systolic congestive heart failure Current Visit: No Status: Acute Code(s): I50.22 - CHRONIC SYSTOLIC ( CONGESTIVE) HEART FAILURE SNOMED Code(s): 147918479 Comment: - CXR on 10/06 showing pulmonary edema, now resolved - No evidence of exacerbation at this time - Echo in July shows EF 45-50%; now 40-45% during this hospitalization - Continue metoprolol, furosemide (9) Neurogenic bladder Current Visit: No Status: Acute Code(s): N31.9 - NEUROMUSCULAR DYSFUNCTION OF BLADDER, UNSPECIFIED SNOMED Code(s): 200440477 Comment: - Usually self caths at home, continue straight caths (10) INDIGO (obstructive sleep apnea) Current Visit: No Status: Acute Code(s): G47.33 - OBSTRUCTIVE SLEEP APNEA ( ADULT) (PEDIATRIC) SNOMED Code(s): 06946216 Comment: - Continue BiPAP (11) Lung mass Current Visit: Yes Status: Acute Code(s): R91.8 - OTHER NONSPECIFIC ABNORMAL FINDING OF LUNG FIELD SNOMED Code(s): 680061804 Comment: - Repeat CT with contrast revealed that previously suspicious suprahilar mass is likely atelectasis - Likely would benefit from repeat imaging when patient is not acutely ill (12) DVT prophylaxis Current Visit: No Status: Acute Code(s): RDJ3480 - SNOMED Code(s): 322638110 Comment: - [place] (13) Full code status Current Visit: No Status: Acute Code(s): Z78.9 - OTHER SPECIFIED HEALTH STATUS SNOMED Code(s): 821077307 Comment: - Patient is Full Code - Previous provider discussed with him and at bedside and insited on having him full code Status and Disposition: Inpatient. Patient has been offered a GIO bed at [facility] for Sunday12/09/18, will be discharged at that time
[2018-12-06] MEDS: oxyCODONE/Acetamin 5/325 MG* TAB PO PRN (13:11)
[2018-12-06] MEDS ORDERED: Bisacodyl SUPP* 10 MG SUPP PR ONE ×2 (17:33→20:00)
[2018-12-06] MEDS: Lidocaine Patch REMOVE* 1 NOTE MISC SCH (21:03)
[2018-12-06] MEDS ORDERED: Mineral Oil, LAXITIVE* 30 ML UDC PO ONE (23:46)
[2018-12-07 07:10] LABS: BUN/Creatinine Ratio 39.6 (8-20); Calcium 8.2 mg/dL (8.6-10.3); EGFR African American 205.1 (>60); EGFR Non-African American 169.5 (>60); Magnesium 1.9 mg/dL (1.9-2.7); Potassium 4.6 mmol/L (3.5-5.0)
[2018-12-07] MEDS: Ketorolac INJ* 15 MG/ML 1 ML VIAL IV PUSH PRN ×3 (07:42→22:10)
[2018-12-07] MEDS: Furosemide TAB* 40 MG PO SCH (09:12)
[2018-12-07] MEDS: Metoprolol Succinate XL TAB* 50 MG PO SCH (09:12)
[2018-12-07] MEDS: Apixaban* 5 MG TAB PO SCH ×2 (09:13→22:06)
[2018-12-07] MEDS: oxyCODONE/Acetamin 5/325 MG* TAB PO PRN ×2 (09:13→17:05)
[2018-12-07] MEDS: Atorvastatin* 10 MG TAB PO SCH (09:13)
[2018-12-07] MEDS: Oxybutynin TAB* 5 MG PO SCH (09:13)
[2018-12-07] MEDS: Dronedarone TAB* 400 MG PO SCH ×2 (09:14→17:04)
[2018-12-07] MEDS: guaiFENesin ER TAB 600 MG PO SCH ×2 (09:14→22:07)
[2018-12-07] MEDS: Potassium Chlor TAB* 20 MEQ TAB.ER PO SCH ×2 (09:14→22:07)
[2018-12-07] MEDS: BuPROPion XL* 150 MG TAB.XL PO SCH (09:17)
[2018-12-07] MEDS: Escitalopram * 20 MG TABLET PO SCH (09:17)
[2018-12-07] MEDS: Lidocaine PATCH 5%* 1 PATCH TRANSDERM SCH (09:19)
[2018-12-07] MEDS: Amoxicillin/Clavulanate TAB* 500 MG PO SCH ×2 (12:32→22:06)
[2018-12-07] MEDS: Acetaminophen TAB* 325 MG PO PRN ×2 (14:33→23:17)
[2018-12-07] MEDS ORDERED: acetaZOLAMIDE TAB* 250 MG PO ONE (16:25)
--- NOTE | 2018-12-07 16:35 | PN ---
Subjective Date of Service: 12/07/18 Interval History: Pt is feeling ok today. His biggest complaint is that he has not had a BM in 5 days. He denies any SOB. No chest pain. He has a sore bottom from a pressure ulcer. Past Medical History: Unchanged from Admission Objective Active Medications: Acetaminophen (Tylenol Tab*) 975 mg PO TID PRN PRN Reason: MILD PAIN or TEMP > 100.4 Last Admin: 12/07/18 14:33 Dose: 975 mg Albuterol/Ipratropium (Duoneb (Albuterol 2.5 Mg/Ipratropium 0.5 Mg)) 1 neb INH Q6H PRN PRN Reason: SOB/WHEEZING Last Admin: 11/26/18 13:06 Dose: 1 neb Amoxicillin/Clavulanate Potassium (Augmentin Tab*) 500 mg PO BID [facility] Last Admin: 12/07/18 12:32 Dose: 500 mg Apixaban (Eliquis*) 5 mg PO BID [facility] Last Admin: 12/07/18 09:13 Dose: 5 mg Atorvastatin Calcium (Lipitor*) 10 mg PO DAILY [facility]; Protocol Last Admin: 12/07/18 09:13 Dose: 10 mg Bupropion HCl (Wellbutrin Xl *) 150 mg PO DAILY [facility] Last Admin: 12/07/18 09:17 Dose: 150 mg Calcium Carbonate (Tums*) 500 mg PO Q4H PRN PRN Reason: DYSPNEA Dronedarone (Multaq Tab*) 400 mg PO BID WITH MEALS [facility] Last Admin: 12/07/18 09:14 Dose: 400 mg Escitalopram Oxalate (Lexapro *) 20 mg PO DAILY [facility] Last Admin: 12/07/18 09:17 Dose: 20 mg Furosemide (Lasix Tab*) 40 mg PO DAILY [facility] Last Admin: 12/07/18 09:12 Dose: 40 mg Guaifenesin (Mucinex*) 600 mg PO BID [facility] Last Admin: 12/07/18 09:14 Dose: 600 mg Ketorolac Tromethamine (Toradol Inj*) 15 mg IV PUSH Q6H PRN PRN Reason: PAIN - MODERATE Last Admin: 12/07/18 14:34 Dose: 15 mg Lidocaine (Lidoderm 5% Patch*) 1 patch TRANSDERM DAILY [facility] Last Admin: 12/07/18 09:19 Dose: 1 patch Metoprolol Succinate (Toprol Xl Tab*) 50 mg PO DAILY [facility] Last Admin: 12/07/18 09:12 Dose: 50 mg Ondansetron HCl (Zofran Inj*) 4 mg IV Q4H PRN PRN Reason: NAUSEA Last Admin: 12/04/18 18:57 Dose: 4 mg Oxybutynin Chloride (Ditropan Tab*) 5 mg PO DAILY [facility] Last Admin: 12/07/18 09:13 Dose: 5 mg Oxycodone/Acetaminophen (Percocet 5/325 Tab*) 1 tab PO Q6H PRN PRN Reason: severe pain breakthrough Last Admin: 12/07/18 09:13 Dose: 1 tab Pharmacy Profile Note (Lidocaine Patch Remove*) 1 note N/A 2100 [facility] Last Admin: 12/06/18 21:03 Dose: 1 note Polyethylene Glycol/Electrolytes (Golytely*) 2,000 ml PO ONCE ONE Stop: 12/07/18 17:01 Potassium Chloride (Klor Con Er Tab*) 20 meq PO BID [facility] Last Admin: 12/07/18 09:14 Dose: 20 meq Vital Signs - 8 hr 12/07/18 12/07/18 09:13 12:47 Respiratory 20 20 Rate Oxygen Devices in Use Now: None - 100% on RA Appearance: Elderly male lying on his R side in bed, NAD Eyes: No Scleral Icterus Ears/Nose/Mouth/Throat: Mucous Membranes Moist Respiratory: Symmetrical Chest Expansion and Respiratory Effort, Clear to Auscultation Cardiovascular: NL Sounds; No Murmurs; No JVD, RRR, No Edema Abdominal: NL Sounds; No Tenderness; No Distention Extremities: No Clubbing, Cyanosis Skin: No Nodules or Sclerosis, - - stage II pressure ulcer on the buttocks bilaterally, covered in barrier cream Neurological: Alert and Oriented x 3 Result Diagrams: 12/04/18 05:44 12/07/18 06:41 Additional Lab and Data: Laboratory Results - last 24 hr 12/02/18 12/02/18 06:26 06:26 WBC 14.3 H RBC 3.88 L Hgb 11.9 L Hct 36 L MCV 91 MCH 31 MCHC 34 RDW 16 H Plt Count 208 MPV 7.2 L Neut % (Auto) 73.1 Lymph % (Auto) 15.2 [place] % (Auto) 11.2 Eos % (Auto) 0.1 Baso % (Auto) 0.4 Absolute Neuts (auto) 10.5 H Absolute Lymphs (auto) 2.2 Absolute Monos (auto) 1.6 H Absolute Eos (auto) 0.0 Absolute Basos (auto) 0.1 Absolute Nucleated RBC 0.0 Nucleated RBC % 0.0 Sodium 138 Potassium 3.4 L Chloride 103 Carbon Dioxide 31 Anion Gap 4 BUN 17 Creatinine 0.44 L Est GFR ( Amer) 226.7 Est GFR (Non-Af Amer) 187.4 BUN/Creatinine Ratio 38.6 H Glucose 97 Calcium 9.2 Magnesium 1.8 L Total Bilirubin 0.80 AST 17 ALT 16 Alkaline Phosphatase 94 Total Protein 5.7 L Albumin 3.3 Globulin 2.4 Albumin/Globulin Ratio 1.4 Microbiology and Other Data: Microbiology 11/24/18 15:35 Gram Stain - Final Sputum Trach Sputum Culture - Final YEAST Normal [place] 11/24/18 22:45 Urine Culture - Final Urine No Growth (<1,000 CFU/mL) 11/24/18 13:40 Nasal Screen MRSA (PCR) - Final Nasal Mrsa Not Detected Assess/Plan/Problems-Billing Mr Sethi is a 78 yo M who was admitted for acute respiratory failure secondary to bibasilar pneumoniae with underlying systolic CHF and and COPD s/p mechanical ventilation, extubated on 11/26/18 - Patient Problems (1) Acute on chronic respiratory failure with hypoxia and hypercapnia Current Visit: Yes Status: Acute Code(s): J96.21 - ACUTE AND CHRONIC RESPIRATORY FAILURE WITH HYPOXIA; J96.22 - ACUTE AND CHRONIC RESPIRATORY FAILURE WITH HYPERCAPNIA SNOMED Code(s): 46440730121288 Comment: Respiratory failure is multifactorial secondary to pneumonia, CHF and COPD. He completed a full course of azithromycin and cefepime. Continue BiPAP with sleep and lasix. Continue incentive spirometer and pulmonary toilet. Not needing supplemental O2 at this time. Much improved and ready for d/c to rehab on 12/09/18. (2) Chronic systolic congestive heart failure Current Visit: Yes Status: Acute Code(s): I50.22 - CHRONIC SYSTOLIC ( CONGESTIVE) HEART FAILURE SNOMED Code(s): 365901665 Comment: Pt with episodes of decompensated CHF during this hospitalization. Continue daily lasix. Give acetazolamide x1 today as he is developing a contraction alkalosis. (3) Decubitus ulcer Current Visit: Yes Status: Acute Code(s): L89.90 - PRESSURE ULCER OF UNSPECIFIED SITE, UNSPECIFIED STAGE SNOMED Code(s): 757482643 Comment: Stage II pressure ulcer on the buttocks. Continue pressure relieving measures and barrier cream. (4) COPD (chronic obstructive pulmonary disease) Current Visit: Yes Status: Acute Code(s): J44.9 - CHRONIC OBSTRUCTIVE PULMONARY DISEASE, UNSPECIFIED SNOMED Code(s): 46382761 Comment: No signs of exacerbation at this time. Continue albuterol as needed. Continue BiPAP with sleep. (5) Atrial fibrillation Current Visit: Yes Status: Acute Code(s): I48.91 - UNSPECIFIED ATRIAL FIBRILLATION SNOMED Code(s): 74104332 Comment: HR controlled. Continue Multaq 400mg BID and Eliquis 5 mg BID. (6) Depression Current Visit: Yes Status: Acute Code(s): F32.9 - MAJOR DEPRESSIVE DISORDER , SINGLE EPISODE, UNSPECIFIED SNOMED Code(s): 50099515 Comment: Continue celexa and wellbutrin. (7) CAD (coronary artery disease) Current Visit: Yes Status: Acute Code(s): I25.10 - ATHSCL HEART DISEASE OF [place] CORONARY ARTERY W/O ANG PCTRS SNOMED Code(s): 55023905 Comment: Continue metoprolol and lipitor. (8) INDIGO (obstructive sleep apnea) Current Visit: Yes Status: Acute Code(s): G47.33 - OBSTRUCTIVE SLEEP APNEA ( ADULT) (PEDIATRIC) SNOMED Code(s): 87858818 Comment: Continue BiPAP with sleep. I have explained how important it is that he use it regularly. (9) DVT prophylaxis Current Visit: Yes Status: Acute Code(s): TTC0243 - SNOMED Code(s): 875057381 Comment: [place] (10) Full code status Current Visit: Yes Status: Acute Code(s): Z78.9 - OTHER SPECIFIED HEALTH STATUS SNOMED Code(s): 804356198 Status and Disposition: [place] Sunday12/09/18
[2018-12-07] MEDS ORDERED: PEG 3000 GI LAVAGE* 1 GALLON PO ONE (17:00)
[2018-12-07] MEDS: Lidocaine Patch REMOVE* 1 NOTE MISC SCH (22:58)
[2018-12-08] MEDS: Ondansetron INJ* 2 MG/ML VIAL IV PRN (04:38)
[2018-12-08] MEDS: oxyCODONE/Acetamin 5/325 MG* TAB PO PRN ×3 (05:09→19:28)
[2018-12-08] MEDS: Oxybutynin TAB* 5 MG PO SCH (09:40)
[2018-12-08] MEDS: Amoxicillin/Clavulanate TAB* 500 MG PO SCH ×2 (09:40→21:13)
[2018-12-08] MEDS: Atorvastatin* 10 MG TAB PO SCH (09:40)
[2018-12-08] MEDS: guaiFENesin ER TAB 600 MG PO SCH ×2 (09:40→21:14)
[2018-12-08] MEDS: Apixaban* 5 MG TAB PO SCH ×2 (09:40→21:14)
[2018-12-08] MEDS: BuPROPion XL* 150 MG TAB.XL PO SCH (09:40)
[2018-12-08] MEDS: Escitalopram * 20 MG TABLET PO SCH (09:40)
[2018-12-08] MEDS: Dronedarone TAB* 400 MG PO SCH ×2 (09:40→19:29)
[2018-12-08] MEDS: Potassium Chlor TAB* 20 MEQ TAB.ER PO SCH ×2 (09:40→21:13)
[2018-12-08] MEDS: Furosemide TAB* 40 MG PO SCH (09:42)
[2018-12-08] MEDS: Metoprolol Succinate XL TAB* 50 MG PO SCH (09:42)
[2018-12-08] MEDS: Lidocaine PATCH 5%* 1 PATCH TRANSDERM SCH (09:47)
--- NOTE | 2018-12-08 11:26 | PN ---
Subjective Date of Service: 12/08/18 Interval History: Patient easily awakes from sleep this morning, on BiPAP as ordered for sleeping overnight. Patient complains only of his chronic knee and back pain today. He feels it is unchanged from his usual pain and asks for his prn medications. He otherwise has on complaints. He denies difficulty breathing, chest pain, abd pain, fever/chills. Past Medical History: Unchanged from Admission Objective Active Medications: Acetaminophen (Tylenol Tab*) 975 mg PO TID PRN PRN Reason: MILD PAIN or TEMP > 100.4 Last Admin: 12/07/18 23:17 Dose: 975 mg Albuterol/Ipratropium (Duoneb (Albuterol 2.5 Mg/Ipratropium 0.5 Mg)) 1 neb INH Q6H PRN PRN Reason: SOB/WHEEZING Last Admin: 11/26/18 13:06 Dose: 1 neb Amoxicillin/Clavulanate Potassium (Augmentin Tab*) 500 mg PO BID [facility] Last Admin: 12/08/18 09:40 Dose: 500 mg Apixaban (Eliquis*) 5 mg PO BID [facility] Last Admin: 12/08/18 09:40 Dose: 5 mg Atorvastatin Calcium (Lipitor*) 10 mg PO DAILY [facility]; Protocol Last Admin: 12/08/18 09:40 Dose: 10 mg Bupropion HCl (Wellbutrin Xl *) 150 mg PO DAILY [facility] Last Admin: 12/08/18 09:40 Dose: 150 mg Calcium Carbonate (Tums*) 500 mg PO Q4H PRN PRN Reason: DYSPNEA Dronedarone (Multaq Tab*) 400 mg PO BID WITH MEALS [facility] Last Admin: 12/08/18 09:40 Dose: 400 mg Escitalopram Oxalate (Lexapro *) 20 mg PO DAILY [facility] Last Admin: 12/08/18 09:40 Dose: 20 mg Furosemide (Lasix Tab*) 40 mg PO DAILY [facility] Last Admin: 12/08/18 09:42 Dose: 40 mg Guaifenesin (Mucinex*) 600 mg PO BID [facility] Last Admin: 12/08/18 09:40 Dose: 600 mg Ketorolac Tromethamine (Toradol Inj*) 15 mg IV PUSH Q6H PRN PRN Reason: PAIN - MODERATE Last Admin: 12/07/18 22:10 Dose: 15 mg Lidocaine (Lidoderm 5% Patch*) 1 patch TRANSDERM DAILY [facility] Last Admin: 12/08/18 09:47 Dose: Not Given Metoprolol Succinate (Toprol Xl Tab*) 50 mg PO DAILY [facility] Last Admin: 12/08/18 09:42 Dose: 50 mg Ondansetron HCl (Zofran Inj*) 4 mg IV Q4H PRN PRN Reason: NAUSEA Last Admin: 12/08/18 04:38 Dose: 4 mg Oxybutynin Chloride (Ditropan Tab*) 5 mg PO DAILY [facility] Last Admin: 12/08/18 09:40 Dose: 5 mg Oxycodone/Acetaminophen (Percocet 5/325 Tab*) 1 tab PO Q6H PRN PRN Reason: severe pain breakthrough Last Admin: 12/08/18 05:09 Dose: 1 tab Pharmacy Profile Note (Lidocaine Patch Remove*) 1 note N/A 2100 [facility] Last Admin: 12/07/18 22:58 Dose: 1 note Potassium Chloride (Klor Con Er Tab*) 20 meq PO BID [facility] Last Admin: 12/08/18 09:40 Dose: 20 meq Vital Signs - 8 hr 12/08/18 12/08/18 12/08/18 03:43 05:09 05:11 Temperature 98.6 F Pulse Rate 57 66 Respiratory 18 18 18 Rate Blood Pressure 109/44 114/60 (mmHg) O2 Sat by Pulse 100 Oximetry 12/08/18 12/08/18 12/08/18 07:32 07:38 09:08 Temperature 98 F Pulse Rate 61 Respiratory 17 18 18 Rate Blood Pressure 93/38 (mmHg) O2 Sat by Pulse 100 Oximetry Oxygen Devices in Use Now: BiPAP Appearance: Obese, elderly white male, laying in bed, appearing in NAD Eyes: No Scleral Icterus, PERRLA Ears/Nose/Mouth/Throat: Mucous Membranes Moist Neck: NL Appearance and Movements; NL JVP Respiratory: Symmetrical Chest Expansion and Respiratory Effort, Clear to Auscultation Cardiovascular: NL Sounds; No Murmurs; No JVD, RRR Abdominal: - - abd soft, nontender, nondistneded Extremities: No Edema, No Clubbing, Cyanosis Skin: No Rash or Ulcers Neurological: Alert and Oriented x 3, NL Muscle Strength and Tone Result Diagrams: 12/04/18 05:44 12/07/18 06:41 Additional Lab and Data: Laboratory Results - last 24 hr 12/02/18 12/02/18 06:26 06:26 WBC 14.3 H RBC 3.88 L Hgb 11.9 L Hct 36 L MCV 91 MCH 31 MCHC 34 RDW 16 H Plt Count 208 MPV 7.2 L Neut % (Auto) 73.1 Lymph % (Auto) 15.2 [place] % (Auto) 11.2 Eos % (Auto) 0.1 Baso % (Auto) 0.4 Absolute Neuts (auto) 10.5 H Absolute Lymphs (auto) 2.2 Absolute Monos (auto) 1.6 H Absolute Eos (auto) 0.0 Absolute Basos (auto) 0.1 Absolute Nucleated RBC 0.0 Nucleated RBC % 0.0 Sodium 138 Potassium 3.4 L Chloride 103 Carbon Dioxide 31 Anion Gap 4 BUN 17 Creatinine 0.44 L Est GFR ( Amer) 226.7 Est GFR (Non-Af Amer) 187.4 BUN/Creatinine Ratio 38.6 H Glucose 97 Calcium 9.2 Magnesium 1.8 L Total Bilirubin 0.80 AST 17 ALT 16 Alkaline Phosphatase 94 Total Protein 5.7 L Albumin 3.3 Globulin 2.4 Albumin/Globulin Ratio 1.4 Microbiology and Other Data: Microbiology 11/24/18 15:35 Gram Stain - Final Sputum Trach Sputum Culture - Final YEAST Normal [place] 11/24/18 22:45 Urine Culture - Final Urine No Growth (<1,000 CFU/mL) 11/24/18 13:40 Nasal Screen MRSA (PCR) - Final Nasal Mrsa Not Detected Assess/Plan/Problems-Billing Mr Sethi is a 78 yo M who was admitted for acute respiratory failure secondary to bibasilar pneumoniae with underlying systolic CHF and and COPD s/p mechanical ventilation, extubated on 11/26/18 - Patient Problems (1) UTI (urinary tract infection) Current Visit: No Status: Acute Comment: - Urine culture collected on 12/06/18 demonstrates enterococcus faecalis - Augmentin 500 mg BID started 12/07/18 - Afebrile (2) Acute on chronic respiratory failure with hypoxia and hypercapnia Current Visit: Yes Status: Acute Code(s): J96.21 - ACUTE AND CHRONIC RESPIRATORY FAILURE WITH HYPOXIA; J96.22 - ACUTE AND CHRONIC RESPIRATORY FAILURE WITH HYPERCAPNIA SNOMED Code(s): 83148654360890 Comment: Respiratory failure is multifactorial secondary to pneumonia, CHF and COPD. He completed a full course of azithromycin and cefepime. Continue BiPAP with sleep and lasix. Continue incentive spirometer and pulmonary toilet. Requiring only his normal home requirement of supplemental oxygen of 3L [place]. Much improved and ready for d/c to rehab on 12/09/18. (3) Bladder spasm Current Visit: Yes Status: Acute Comment: -bladder discomfort resolved -continue oxybutynin -cont straight cath TID instead of indwelling ellison (4) Depression Current Visit: Yes Status: Acute Code(s): F32.9 - MAJOR DEPRESSIVE DISORDER , SINGLE EPISODE, UNSPECIFIED SNOMED Code(s): 01810767 Comment: Continue celexa and wellbutrin. (5) Atrial fibrillation Current Visit: Yes Status: Acute Code(s): I48.91 - UNSPECIFIED ATRIAL FIBRILLATION SNOMED Code(s): 92159390 Comment: HR controlled. Continue Multaq 400mg BID and Eliquis 5 mg BID. (6) Chronic pain Current Visit: Yes Status: Acute Code(s): G89.29 - OTHER CHRONIC PAIN SNOMED Code(s): 54362967 Comment: -minimizing opiate use for now in light of CAT call 2/2 opiate use -continue lidocaine patch -continue perocet 5/325 q6h for severe pain (per Dr. Anton's rec) and toradol for moderate pain (7) CAD (coronary artery disease) Current Visit: Yes Status: Acute Code(s): I25.10 - ATHSCL HEART DISEASE OF [place] CORONARY ARTERY W/O ANG PCTRS SNOMED Code(s): 65205870 Comment: Continue metoprolol and lipitor. (8) Chronic systolic congestive heart failure Current Visit: Yes Status: Acute Code(s): I50.22 - CHRONIC SYSTOLIC ( CONGESTIVE) HEART FAILURE SNOMED Code(s): 109583067 Comment: Pt with episodes of decompensated CHF during this hospitalization. Continue daily lasix. Give acetazolamide x1 today as he is developing a contraction alkalosis. (9) Neurogenic bladder Current Visit: No Status: Acute Code(s): N31.9 - NEUROMUSCULAR DYSFUNCTION OF [place]AD[place], UNSPECIFIED SNOMED Code(s): 635384936 Comment: - Usually self caths at home, continue straight caths (10) INDIGO (obstructive sleep apnea) Current Visit: Yes Status: Acute Code(s): G47.33 - OBSTRUCTIVE SLEEP APNEA ( ADULT) (PEDIATRIC) SNOMED Code(s): 80359395 Comment: Continue BiPAP with sleep. I have explained how important it is that he use it regularly. (11) Lung mass Current Visit: Yes Status: Acute Code(s): R91.8 - OTHER NONSPECIFIC ABNORMAL FINDING OF LUNG FIELD SNOMED Code(s): 167901908 Comment: - Repeat CT with contrast revealed that previously suspicious suprahilar mass is likely atelectasis - Likely would benefit from repeat imaging when patient is not acutely ill (12) Decubitus ulcer Current Visit: Yes Status: Acute Code(s): L89.90 - PRESSURE ULCER OF UNSPECIFIED SITE, UNSPECIFIED STAGE SNOMED Code(s): 267798967 Comment: -Stage II pressure ulcer on the buttocks -Continue pressure relieving measures and barrier cream (13) DVT prophylaxis Current Visit: Yes Status: Acute Code(s): RAI4356 - SNOMED Code(s): 096158617 Comment: [place] (14) Full code status Current Visit: Yes Status: Acute Code(s): Z78.9 - OTHER SPECIFIED HEALTH STATUS SNOMED Code(s): 823030390 Status and Disposition: [facility] Sunday12/09/18
[2018-12-08 12:03] LABS: ABS Basophils 0.1 10^3/ul (0-0.2); ABS Eosinophils 0.5 10^3/ul (0-0.6); ABS Lymphocytes 1.5 10^3/ul (1.0-4.8); ABS Monocytes 0.8 10^3/ul (0-0.8); ABS Neutrophils 6.4 10^3/ul (1.5-7.7); Eosinophil % 5.5 %; Hematocrit 34 % (42-52); Hemoglobin 11.1 g/dL (14.0-18.0); Lymphocyte % 15.8 %; Mean Corpuscular HGB Conc 33 g/dL (31-36); Mean Corpuscular Hemoglobin 31 pg (27-31); Mean Corpuscular Volume 94 fL (80-94); Mean Platelet Volume 7.3 fL (7.4-10.4); Platelet Count 160 10^3/uL (150-450); Red Blood Count 3.57 10^6 /uL (4.18-5.48); Red Cell Distribution Width 16 % (10-15); White Blood Count 9.3 10^3/uL (3.5-10.8)
[2018-12-08 12:14] LABS: BUN/Creatinine Ratio 28.3 (8-20); Calcium 8.2 mg/dL (8.6-10.3); EGFR African American 158.5 (>60); Potassium 4.2 mmol/L (3.5-5.0)
--- NOTE | 2018-12-08 12:39 | DS ---
DISCHARGE SUMMARY: ADDENDUM: On 12/07/18, the patient's urine culture collected on 12/06/18 demonstrated urine positive for Enterococcus faecalis, sensitive to ampicillin and penicillin. Augmentin 500 mg p.o. b.i.d. was started. This should be continued for a total of 7 days based on starting date of 12/07/18 in the morning. GRACY VAUGHN [id number]/[facility] #: [id number] MTDD
[2018-12-08] MEDS: Lidocaine Patch REMOVE* 1 NOTE MISC SCH (21:16)
--- NOTE | 2018-12-09 00:16 | DS ---
ADDENDUM NOW INCLUDED ON THIS REPORT CC: Dr. Anton; [facility]; Dr. Snyder * DISCHARGE SUMMARY: DATE OF ADMISSION: 11/24/18 DATE OF DISCHARGE: 12/09/18 PROVIDER: GRACY Boo. ATTENDING PHYSICIAN WHILE IN THE HOSPITAL: Odette Coppola DO * (dictated by GRACY Boo). CONSULTING PAIN MANAGEMENT PHYSICIAN: Dr. Anton. CONSULTING SATELLITE DISH REPAIRER: Dr. Snyder. PRIMARY DIAGNOSES: 1. Acute on chronic respiratory failure with hypoxia. 2. Chronic obstructive pulmonary disease exacerbation. 3. Bilateral pneumonia. 4. Atrial fibrillation with rapid ventricular rate, now rate controlled. SECONDARY DIAGNOSES: 1. Chronic obstructive pulmonary disease on 3 L of oxygen at home. 2. Paroxysmal atrial fibrillation. 3. Neurogenic bladder. 4. History of cerebrovascular accident. 5. Depression. 6. Coronary artery disease. 7. Left cephalic vein arteriovenous malformation. 8. Osteoarthritis. 9. Heart failure with reduced ejection fraction. 10. Chronic pain to left knee and low back. STUDIES WHILE IN THE HOSPITAL: Chest CT on 11/30/18: There is suggestion of a right suprahilar mass. There is narrowing of the right upper lobe bronchus. Findings consistent to that identified on 07/05/18. Contrast enhanced study may be performed to further elucidate the finding. Left lower lobe atelectasis or consolidation is noted. Cardiomegaly is noted. Chest CT on 12/01/18: There is right suprahilar mass, appears to be some atelectasis and vasculature. No definite mass was noted. Persistent left basilar atelectasis, is improved since previous exam. Transthoracic echocardiogram on 12/01/18: Ejection fraction 40% to 45%. Mild diffuse hypokinesis. Wall thickness of the left ventricle is moderately to severely increased. PROCEDURES: Cardioversion on 11/27/18. Successful cardioversion to normal sinus rhythm. HISTORY OF PRESENT ILLNESS/HOSPITAL COURSE: Familia Sethi is a 78-year-old white male with a history of heart failure with reduced ejection fraction, COPD , paroxysmal atrial fibrillation, and chronic pain, who presented to [facility] from [facility] on 11/24/18 after being intubated. For further details, please see the admitting history and physical written by Dr. Royal Luz on 11/24/18. The patient was extubated on 11/26/18 and did continue to have a rather poor respiratory status. However, this began to improve during his time on the regular medical floor after he was in ICU. To treat his bilateral pneumonia, he received a full course of azithromycin and cefepime. He ultimately returned to his normal home oxygen requirement of 3 L with good oxygen saturations. BiPAP was continued at night. Ultimately, his lungs do now sound clear after his Mucinex was started and encouraging incentive spirometry. He did additionally receive DuoNeb as needed. It appears that a component of his respiratory failure was decompensated heart failure. He initially had acetazolamide ordered which has since been discontinued. He has had minimal interval worsening of his ejection fraction which is now 40% to 45% and has been diuresing well with Lasix. The patient received a full course of p.o. prednisone for his COPD exacerbation. Additionally, the patient did have issues with urinary retention which is an ongoing issue as he has neurogenic bladder. He used to perform straight catheterization three times daily at home until he has been more recently been using an indwelling Osorio. However, the indwelling Osorio was causing pain which I believe is due to the indwelling Osorio pressing on his prostate as he was complaining of pain in his rectum. The patient then responded well to t.i.d. straight caths. I started the patient on oxybutynin. The patient is known to have atrial fibrillation. There were times when the patient was having symptomatic palpitations and it appeared that he was experiencing bigeminy. During these times, he did have a low magnesium and did frequently require replacement of his magnesium. Of note, the patient has chronic pain and has been previously weaned off of opiates in the past, but opiates were used with caution during this hospitalization due to the patient having severe respiratory depression in the hospital. Our pain specialist Dr. Anton recommended elimination of IV fentanyl and utilizing only q.6 hours p.r.n. Percocet 5/325 mg and to continue his lidocaine patch. Since the patient had been extubated during the hospital stay at [facility], he developed atrial fibrillation with RVR. He was seen in consultation by Dr. Anay Snyder at the cardiology service. She performed a successful cardioversion on 11/27/18. At his point, she recommended potassium supplement and dronedarone. Overall, the patient remains in sinus rhythm other than the bigeminy as previously discussed. Additionally, the patient expressed feeling more depressed to the sales and marketing engineer while he was inpatient. He was already taking citalopram and Wellbutrin and his citalopram was increased to 20 mg during his hospital stay from previous 10 mg. He obviously has not had much change in his mood as this has been adjusted only recently. Additionally, during the patient's hospital stay, he was seen in consultation by palliative care physician Dr. Cherelle Clemens. The patient and were not interested in palliative services and were insistent upon the patient being full code as well as him getting subacute rehab with the ultimate goal of him returning back home. In reality this may not be possible as previously the patient was already in rehab and was at home for about one week before coming back to the hospital. DISCHARGE PLAN: DIET: Carbohydrate consistent diet. ACTIVITY: The patient may return to normal activity as possible. The patient will be going to [facility] for subacute rehab. It would be of benefit if during this stay in rehab, an outpatient visit with an orthopedist could be scheduled as the patient may possibly benefit from glucocorticoid injections in his knee to help control his chronic pain. This may help wean him off opiates as this is recommended. The patient would also benefit from following up with pain specialist Dr. Anton if possible. Additionally, it does not appear that the patient has a primary care provider per our records and he may follow up in the [facility]. Additionally, the patient would benefit from a repeat CT chest in the outpatient setting to monitor the abnormal findings in the hospital. On repeat CT, I believe that the patient did not have a suprahilar mass, though it may be still of benefit, for clarity purposes, to have this repeated in 4 weeks. It will be of benefit to intermittently check the patient's BMP and magnesium level to further determine if it may be of benefit to increase potassium supplementation or begin magnesium supplementation. DISCHARGE MEDICATIONS: New Medications: 1. Dronedarone 400 mg p.o. b.i.d. 2. Celexa 20 mg p.o. daily. 3. Mucinex 600 mg p.o. b.i.d. 4. Oxybutynin 5 mg p.o. daily. 5. Percocet 5/325 mg p.o. q.6 hours p.r.n. severe pain. 6. Potassium chloride 20 mEq p.o. daily. Continued home medications: 1. Wellbutrin 150 mg p.o. daily. 2. Metoprolol succinate 50 mg p.o. daily. 3. Rosuvastatin 5 mg p.o. daily. 4. Tylenol 650 mg p.o. q.4 hours p.r.n. pain. 5. Ventolin nebulizer inhaled q.4 hours p.r.n. shortness of breath. 6. Albuterol inhaler 2 puffs inhaled q.4 hours p.r.n. shortness of breath. 7. Eliquis 5 mg p.o. b.i.d. 8. Colace 100 mg p.o. b.i.d. 9. Dutasteride 0.5 mg p.o. daily. 10. Ferrous sulfate 325 mg p.o. b.i.d. 11. Lasix 40 mg p.o. daily. 12. Lidocaine patch 5% transdermally daily. 13. Multivitamin 1 tab p.o. daily. 14. Omeprazole 20 mg p.o. b.i.d. 15. MiraLAX 17 g p.o. daily p.r.n. constipation. 16. Senna 1 to 2 tab p.o. daily p.r.n. constipation. 17. Incruse Ellipta 1 inhalation daily. Discontinued home medications: 1. Oxycodone 5 mg p.o. q.6 hours. 2. Celexa 10 mg. CONDITION ON DISCHARGE: Improved. DISPOSITION: [facility]. TIME SPENT: Approximately 40 minutes were spent on this discharge, approximately half this time was spent reviewing the course of the patient's stay. GRACY BOO ADDENDUM: On 12/07/18, the patient's urine culture collected on 12/06/18 demonstrated urine positive for Enterococcus faecalis, sensitive to ampicillin and penicillin. Augmentin 500 mg p.o. b.i.d. was started. This should be continued for a total of 7 days based on starting date of 12/07/18 in the morning. GRACY BOO [id number] #: [id number]/CPS #: [id number] [facility]
[2018-12-09] MEDS: oxyCODONE/Acetamin 5/325 MG* TAB PO PRN (05:45)
[2018-12-09] MEDS: Ketorolac INJ* 15 MG/ML 1 ML VIAL IV PUSH PRN (06:15)
[2018-12-09] MEDS: BuPROPion XL* 150 MG TAB.XL PO SCH (09:43)
[2018-12-09] MEDS: Furosemide TAB* 40 MG PO SCH (09:44)
[2018-12-09] MEDS: Potassium Chlor TAB* 20 MEQ TAB.ER PO SCH (09:44)
[2018-12-09] MEDS: Escitalopram * 20 MG TABLET PO SCH (09:48)
[2018-12-09] MEDS: Amoxicillin/Clavulanate TAB* 500 MG PO SCH (09:48)
[2018-12-09] MEDS: Atorvastatin* 10 MG TAB PO SCH (09:48)
[2018-12-09] MEDS: Oxybutynin TAB* 5 MG PO SCH (09:49)
[2018-12-09] MEDS: Dronedarone TAB* 400 MG PO SCH (09:49)
[2018-12-09] MEDS: Apixaban* 5 MG TAB PO SCH (09:49)
[2018-12-09] MEDS: guaiFENesin ER TAB 600 MG PO SCH (09:49)
[2018-12-09] MEDS: Acetaminophen TAB* 325 MG PO PRN (09:49)
[2018-12-09] MEDS: Lidocaine PATCH 5%* 1 PATCH TRANSDERM SCH (09:50)
[2018-12-09] MEDS: Metoprolol Succinate XL TAB* 50 MG PO SCH (10:05)
[2018-12-09 11:47] VITALS: BP 90/41
== END 2018-12-09 13:30 | DRG 208 ==
LOC: ICU 13:47 → MEDTELE 12-01 21:48
PROVIDERS: ADMIT Internal Medicine Critical Care Medicine; ATTEND Hospitalist
PROC: 5A1935Z Respiratory Ventilation, Less than 24 Consecutive Hours (ICD-10-PCS; principal; 2018-11-24)
PROC: 0BH17EZ Insertion of Endotracheal Airway into Trachea, Via Natural or Artificial Opening (ICD-10-PCS; 2018-11-24)
PROC: 05HM33Z Insertion of Infusion Device into Right Internal Jugular Vein, Percutaneous Approach (ICD-10-PCS; 2018-11-24)
PROC: 5A09457 Assistance with Respiratory Ventilation, 24-96 Consecutive Hours, Continuous Positive Airway Pressure (ICD-10-PCS; 2018-11-25)
PROC: 0BP1XDZ Removal of Intraluminal Device from Trachea, External Approach (ICD-10-PCS; 2018-11-25)
PROC: 5A2204Z Restoration of Cardiac Rhythm, Single (ICD-10-PCS; 2018-11-27)
DX: J96.21 Acute and chronic respiratory failure with hypoxia (principal); J18.9 Pneumonia, unspecified organism; I50.23 Acute on chronic systolic (congestive) heart failure; J44.1 Chronic obstructive pulmonary disease with (acute) exacerbation; J44.0 Chronic obstructive pulmonary disease with (acute) lower respiratory infection; E87.3 Alkalosis; N39.0 Urinary tract infection, site not specified; J96.22 Acute and chronic respiratory failure with hypercapnia; I48.0 Paroxysmal atrial fibrillation; F32.9 Major depressive disorder, single episode, unspecified; N40.0 Benign prostatic hyperplasia without lower urinary tract symptoms; N31.9 Neuromuscular dysfunction of bladder, unspecified; M54.9 Dorsalgia, unspecified; G47.33 Obstructive sleep apnea (adult) (pediatric); E66.9 Obesity, unspecified; M48.00 Spinal stenosis, site unspecified; L89.322 Pressure ulcer of left buttock, stage 2; L89.312 Pressure ulcer of right buttock, stage 2; M25.562 Pain in left knee; I25.10 Atherosclerotic heart disease of native coronary artery without angina pectoris; I44.7 Left bundle-branch block, unspecified; I27.20 Pulmonary hypertension, unspecified; R19.7 Diarrhea, unspecified; B95.2 Enterococcus as the cause of diseases classified elsewhere; R00.2 Palpitations; Z86.73 Personal history of transient ischemic attack (TIA), and cerebral infarction without residual deficits; Z91.041 Radiographic dye allergy status; Z82.49 Family history of ischemic heart disease and other diseases of the circulatory system; Z68.31 Body mass index [BMI] 31.0-31.9, adult; Z79.01 Long term (current) use of anticoagulants
CPT/HCPCS: 36415; 36600; 71045; 71250; 71260; 80048; 80053; 80076; 81003; 81015; 82140; 82803; 83735; 83880; 84100; 84443; 84484; 85025; 85610; 85730; 87070; 87077; 87086; 87186; 87205; 87641; 93005; 93306; 93970; 94002; 94003; 94660; A9270-GY; C8929; G8978-GP-CN; G8979-GP-CI; G8979-GP-CL; G8987-GO-CM; G8988-GO-CK; J0456; J0692; J1644; J1885; J1940; J2250; J2310; J2405; J2704; J3010; J3475; J3480; J3490; J7512; Q9967

== ENCOUNTER 2019-01-08 14:49 | Inpatient (IN) | payer MEDICARE ==
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
[2019-01-08 15:48] LABS: ABS Lymphocytes 1.9 10^3/ul (1.0-4.8); ABS Monocytes 1.3 10^3/ul (0-0.8); ABS Neutrophils 12.3 10^3/ul (1.5-7.7); Eosinophil % 0.2 %; Hematocrit 34 % (42-52); Hemoglobin 11.5 g/dL (14.0-18.0); Lymphocyte % 12.3 %; Mean Corpuscular HGB Conc 34 g/dL (31-36); Mean Corpuscular Hemoglobin 32 pg (27-31); Mean Corpuscular Volume 96 fL (80-94); Mean Platelet Volume 7.5 fL (7.4-10.4); Nucleated Red Blood Cells % 0.1; Platelet Count 202 10^3/uL (150-450); Red Blood Count 3.57 10^6 /uL (4.18-5.48); Red Cell Distribution Width 14 % (10-15); White Blood Count 15.6 10^3/uL (3.5-10.8)
[2019-01-08 16:06] LABS: Albumin 3.3 g/dL (3.2-5.2); Chloride 95 mmol/L (101-111); Potassium 4.3 mmol/L (3.5-5.0); Sodium 143 mmol/L (135-145)
[2019-01-08 16:12] LABS: ALT 15 U/L (7-52); AST 19 U/L (13-39); Albumin/Globulin Ratio 1.2 (1-3); Alkaline Phosphatase 70 U/L (34-104); BUN/Creatinine Ratio 35.2 (8-20); Blood Urea Nitrogen 19 mg/dL (6-24); C Reactive Protein 121.24 mg/L (<8.01); Creatine Kinase 44 U/L (10-223); EGFR Non-African American 147.9 (>60); Globulin 2.7 g/dL (2-4); Glucose 85 mg/dL (70-100)
[2019-01-08 16:13] LABS: Activated Partial Thrombo Time 34.5 seconds (26.0-38.0); INR 1.23 (0.82-1.09)
[2019-01-08] MEDS ORDERED: Furosemide IV* 10 MG/ML 2 ML VIAL (20 MG) IV ONE (16:16)
[2019-01-08 16:32] LABS: CKMB ng/mL 3.9 ng/mL (0.6-6.3)
[2019-01-08 16:33] LABS: Anion Gap 3 mmol/L (2-11); CO2 Carbon Dioxide 45 mmol/L (22-32); Troponin I 0.12 ng/mL (<0.04)
[2019-01-08] MEDS ORDERED: Piperacillin/Tazobac ADVAN(*) 3.375 GM in NS 0.9% 100 ML* 100 ML IVPB ONE (16:44)
[2019-01-08] MEDS ORDERED: Vancomycin(*) 1,000 MG in NS 0.9% 250 ML* 250 ML IVPB ONE (16:44)
[2019-01-08] MEDS ORDERED: Docusate CAP* 100 MG PO PRN (18:21)
[2019-01-08] MEDS ORDERED: Cefepime ADVAN(*) 1 GM in NS 0.9% 50 ML* 50 ML IVPB SCH (19:00)
[2019-01-08] MEDS ORDERED: Vancomycin per Pharmacy* NOTE FOLLOW UP SCH (19:00)
[2019-01-08] MEDS: Cefepime 1 GM in Dextrose(*) 1 GM/50 ML q12h (Duplex) IV SCH (19:47)
[2019-01-08] MEDS ORDERED: Furosemide IV* 10 MG/ML VIAL (40 MG) IV ONE (20:30)
--- NOTE | 2019-01-08 21:05 | CONSULT ---
Consult Consult: Consultation Note -- Critical Care Requesting Physician: Dr Riddle Reason for consult: respiratory failure Limitations in history/physical: none Date of consult: 01/09/2019 HPI: 78y M w/pmhx of COPD, home O2 3L, pAfib on AC, Chronic Mild LV systolic dysfunction, sleep apnea, BPH, home self catheterization, depression; Noted recent [place] [facility] [place] for respiratory failure, bilateral pneumonia, intubated, discharged to Rehab and just discharged from there 2 days back. He returns to ER 01/08 for acute onset respiratory distress today. He was noted to have temp at home of 99.6 as per . In ER, not tachycardic or hypotensive, tachypnic , started on vapotherm for oxygen support. In ICU he was changed to NIV support. CXR revealed bilateral interstitial and some basal changes, started on IV abx and given Lasix 20mg Iv push. I discussed with /patient at bedside, lethargic today+. Cough chronic, sputum chronic. No fevers. Noticeable SOB+. No chest pain. No abd pain/n/v. ED/floor Course: as above ROS: negative except for pertinent positives mentioned above PMHx: COPD, home O2 3L, pAfib on AC, Chronic Mild LV systolic dysfunction, sleep apnea, BPH, home self catheterization, depression PSHx: total hip replacement bilateral, cholecystectomy Family History: DM in father Social History: Alcohol-none, Smoking-none, Drug use-none Allergies: Allergies Allergy/AdvReac Type Severity Reaction Status Date / Time Iodinated Contrast Media Allergy Intermediate Rash Verified 10/01/18 13:30 [Iodinated Contrast- Oral and IV Dye] Home Medications: Omeprazole CAP (NF) [Prilosec CAP* 20 MG] 20 mg PO BID 03/20/14 [History Confirmed 01/08/19] Albuterol 2.5MG/3ML (0.083%)* [Ventolin 2.5 MG/3 ML NEB.MARYANN*] 2.5 mg INH .Q4-6H PRN 03/25/15 [History Confirmed 01/08/19] Albuterol HFA INHALER* [Ventolin HFA Inhaler*] 2 puff INH Q4H PRN 08/15/16 [ History Confirmed 01/08/19] Multivitamins/Minerals TAB* [Theragran/minerals TAB*] 1 tab PO DAILY 08/15/16 [ History Confirmed 01/08/19] Dutasteride (NF) [Avodart (NF)] 0.5 mg PO DAILY 08/31/17 [History Confirmed 12/19] Lidocaine PATCH 5%* [Lidoderm 5% Patch*] 1 patch TRANSDERM DAILY patch [Rx Confirmed 01/08/19] Apixaban* [Eliquis*] 5 mg PO BID 09/23/18 [History Confirmed 01/08/19] Ferrous Sulfate TAB* 325 mg PO BID 09/23/18 [History Confirmed 01/08/19] Furosemide TAB* [Lasix TAB*] 40 mg PO DAILY 09/23/18 [History Confirmed 01/08/19 ] Rosuvastatin (NF) [Crestor (NF)] 5 mg PO DAILY 09/23/18 [History Confirmed 01/08] Umeclidinium [place]awk [Incruse Ellipta] 1 inh INH DAILY 09/23/18 [History Confirmed 01/08/19] Docusate CAP* [Colace Cap*] 100 mg PO BID PRN #60 cap 10/11/18 [Rx Confirmed 12/19] Polyethylene Glycol 3350* [Miralax*] 17 gm PO DAILY PRN #30 packet 10/11/18 [Rx Confirmed 01/08/19] Dronedarone TAB* [Multaq TAB*] 400 mg PO BID WITH MEALS tab 12/08/18 [Rx Confirmed 01/08/19] Oxybutynin TAB* [Ditropan TAB*] 5 mg PO DAILY tab 12/08/18 [Rx Confirmed ] Potassium Chlor TAB* [Potassium Chlor TAB 20 MEQ*] 20 meq PO BID tab.er [Rx Confirmed 01/08/19] Acetaminophen TAB* [Tylenol TAB*] 650 mg PO Q6HR PRN 01/08/19 [History Confirmed 01/08/19] Bupropion XL* [Wellbutrin XL *] 150 mg PO DAILY 01/08/19 [History Confirmed 12/19] Citalopram TAB* [CeleXA TAB*] 20 mg PO QAM 01/08/19 [History Confirmed 01/08/19] Fluticasone-Salmeterol 500-50* [Advair Diskus 500-50*] 1 puff INH BID 01/08/19 [ History Confirmed 01/08/19] Gabapentin CAP(*) [Neurontin 100 mg CAP(*)] 100 mg PO 0800,1400 01/08/19 [ History Confirmed 01/08/19] Gabapentin CAP(*) [Neurontin 300 CAP(*)] 300 mg PO BEDTIME 01/08/19 [History Confirmed 01/08/19] Metoprolol Succinate XL TAB* [Toprol XL TAB*] 25 mg PO DAILY 01/08/19 [History Confirmed 01/08/19] Ondansetron TAB* [Zofran 4 MG Tab*] 8 mg PO TID PRN 01/08/19 [History Confirmed 01/08/19] Sennosides [Senna Lax] 8.6 mg PO DAILY PRN 01/08/19 [History Confirmed 01/08/19] Sucralfate TAB* [Carafate*] 1 gm PO ACHS 01/08/19 [History Confirmed 01/08/19] oxyCODONE/Acetamin 5/325 MG* [Percocet 5/325 TAB*] 1 tab PO Q6H PRN 01/08/19 [ History Confirmed 01/08/19] Tele: NSR with PVCs Vitals: Vital Signs Temp 100.6 F 01/08/19 20:14 Pulse 81 01/08/19 20:14 Resp 25 01/08/19 20:14 BP 128/71 01/08/19 20:14 Pulse Ox 98 01/08/19 20:14 Intake & Output 01/08/19 01/08/19 01/09/19 06:59 18:59 06:59 Intake Total 250 Balance 250 Weight 108.862 kg Intake: IV Fluids 250 O2/Vent: NIV 18/8 60%; RR 24, TV 600 Infusions: heplock Current Medications: Acetaminophen (Tylenol Tab*) 650 mg PO Q4H PRN PRN Reason: MILD PAIN or TEMP > 100.4 Albuterol (Ventolin 2.5 Mg/3 Ml Neb.Maryann*) 2.5 mg INH [id number] AWAKE PRN PRN Reason: sob/wheezing Apixaban (Eliquis*) 5 mg PO BID [facility] Atorvastatin Calcium (Lipitor*) 10 mg PO DAILY [facility]; Protocol Bupropion HCl (Wellbutrin Xl *) [address] [facility] Citalopram Hydrobromide (Celexa Tab*) [address] [facility] Docusate Sodium (Colace Cap*) 100 mg PO BID PRN PRN Reason: CONSTIPATION Dronedarone (Multaq Tab*) 400 [address] BID WITH MEALS [facility] Ferrous Sulfate (Ferrous Sulfate Tab*) [address] [facility] Finasteride (Proscar Tab*) [address] [facility]; Protocol Gabapentin (Neurontin Cap(*)) 100 mg PO 0800,1400 [facility] Gabapentin (Neurontin Cap(*)) [address] [facility] Cefepime HCl (Maxipime 1 Gm In Dextrose Duplex (*)) 1 gm in 50 mls @ 100 mls/ hr IV Q12H [facility] Last Admin: 01/08/19 19:47 Dose: 100 mls/hr Metoprolol Succinate (Toprol Xl Tab*) [address] [facility] Mometasone Furoate/Formoterol Fumar (Dulera 200/5 Mdi*) [address] [facility] Pantoprazole Sodium (Protonix Tab*) [address] [facility] Pharmacy Consult (Vancomycin Per Pharmacy*) 1 note FOLLOW UP .VANC PER PHARMACY [facility]; Protocol Polyethylene Glycol/Electrolytes (Miralax*) 17 gm PO DAILY PRN PRN Reason: CONSTIPATION Potassium Chloride (Klor Con Er Tab*) [address] [facility] Senna (Senokot 8.6 Mg Tab*) 1 tab PO DAILY PRN PRN Reason: CONSTIPATION Sucralfate (Carafate*) [address] [facility] Tiotropium [place]awk (Spiriva Respimat 2.5 Mcg) [address] [facility] Physical Exam: Constitutional: awake, alert, mild tachypnia, no diaphoresis Head: normocephalic, atraumatic Eyes: no pallor, no icterus ENT: moist mucous membranes Neck: soft, supple, no jvd, no stridor CVS: normal rate, regular, no murmur Chest/Resp: bilateral air entry, no rhales, no wheeze, no rhonchi, no acc muscle use Abdomen/GI: soft, nontender, nondistended, BS+ Ext/Msk: warm, pulses+, no edema Skin: intact, warm Neuro: awake, alert, orientedx3, moving all extremities, no gross focal deficit Psych: normal affect Labs: Laboratory Results - last 24 hr 01/08/19 01/08/19 01/08/19 15:20 15:33 15:33 WBC 15.6 H RBC 3.57 L Hgb 11.5 L Hct 34 L MCV 96 H MCH 32 H MCHC 34 RDW 14 Plt Count 202 MPV 7.5 Neut % (Auto) 79.0 Lymph % (Auto) 12.3 [place] % (Auto) 8.3 Eos % (Auto) 0.2 Baso % (Auto) 0.2 Absolute Neuts (auto) 12.3 H Absolute Lymphs (auto) 1.9 Absolute Monos (auto) 1.3 H Absolute Eos (auto) 0.0 Absolute Basos (auto) 0.0 Absolute Nucleated RBC 0.0 Nucleated RBC % 0.1 INR (Anticoag Therapy) APTT Patient Temperature Not Reportable ABG pH 7.36 ABG pH (Temp Correct) Not Reportable ABG pCO2 84 H* ABG pCO2 (Temp Corrct Not Reportable ABG pO2 75 L ABG pO2 (Temp Correct Not Reportable ABG HCO3 38.5 H ABG O2 Saturation 97.2 ABG Base Excess 17.5 H Respiration Rate Not Reportable O2 Delivery Device nrb Ventilator Type Not Reportable Vent Mode Not Reportable FiO2 4 Inspiratory Time Not Reportable PEEP Not Reportable Pressure Support Not Reportable Pressure Control Not Reportable EPAP Not Reportable IPAP Not Reportable BiPAP Not Reportable Sodium 143 Potassium 4.3 Chloride 95 L Carbon Dioxide 45 H* Anion Gap 3 BUN 19 Creatinine 0.54 L Est GFR ( Amer) 179.0 Est GFR (Non-Af Amer) 147.9 BUN/Creatinine Ratio 35.2 H Glucose 85 Lactic Acid Calcium 9.0 Total Bilirubin 0.40 AST 19 ALT 15 Alkaline Phosphatase 70 Total Creatine Kinase 44 CK-MB (CK-2) 3.9 Troponin I 0.12 H* C-Reactive Protein 121.24 H B-Natriuretic Peptide Total Protein 6.0 L Albumin 3.3 Globulin 2.7 Albumin/Globulin Ratio 1.2 01/08/19 01/08/19 01/08/19 15:33 15:33 15:33 WBC RBC Hgb Hct MCV MCH MCHC RDW Plt Count MPV Neut % (Auto) Lymph % (Auto) [place] % (Auto) Eos % (Auto) Baso % (Auto) Absolute Neuts (auto) Absolute Lymphs (auto) Absolute Monos (auto) Absolute Eos (auto) Absolute Basos (auto) Absolute Nucleated RBC Nucleated RBC % INR (Anticoag Therapy) 1.23 H APTT 34.5 Patient Temperature ABG pH ABG pH (Temp Correct) ABG pCO2 ABG pCO2 (Temp Corrct ABG pO2 ABG pO2 (Temp Correct ABG HCO3 ABG O2 Saturation ABG Base Excess Respiration Rate O2 Delivery Device Ventilator Type Vent Mode FiO2 Inspiratory Time PEEP Pressure Support Pressure Control EPAP IPAP BiPAP Sodium Potassium Chloride Carbon Dioxide Anion Gap BUN Creatinine Est GFR ( Amer) Est GFR (Non-Af Amer) BUN/Creatinine Ratio Glucose Lactic Acid 0.8 Calcium Total Bilirubin AST ALT Alkaline Phosphatase Total Creatine Kinase CK-MB (CK-2) Troponin I C-Reactive Protein B-Natriuretic Peptide 986 H Total Protein Albumin Globulin Albumin/Globulin Ratio 01/08/19 18:55 WBC RBC Hgb Hct MCV MCH MCHC RDW Plt Count MPV Neut % (Auto) Lymph % (Auto) [place] % (Auto) Eos % (Auto) Baso % (Auto) Absolute Neuts (auto) Absolute Lymphs (auto) Absolute Monos (auto) Absolute Eos (auto) Absolute Basos (auto) Absolute Nucleated RBC Nucleated RBC % INR (Anticoag Therapy) APTT Patient Temperature Not Reportable ABG pH 7.38 ABG pH (Temp Correct) Not Reportable ABG pCO2 79 H* ABG pCO2 (Temp Corrct Not Reportable ABG pO2 94 ABG pO2 (Temp Correct Not Reportable ABG HCO3 38.4 H ABG O2 Saturation 99.2 H ABG Base Excess 17.3 H Respiration Rate Not Reportable O2 Delivery Device vapo Ventilator Type Not Reportable Vent Mode Not Reportable FiO2 70 Inspiratory Time Not Reportable PEEP Not Reportable Pressure Support Not Reportable Pressure Control Not Reportable EPAP Not Reportable IPAP Not Reportable BiPAP Not Reportable Sodium Potassium Chloride Carbon Dioxide Anion Gap BUN Creatinine Est GFR ( Amer) Est GFR (Non-Af Amer) BUN/Creatinine Ratio Glucose Lactic Acid Calcium Total Bilirubin AST ALT Alkaline Phosphatase Total Creatine Kinase CK-MB (CK-2) Troponin I C-Reactive Protein B-Natriuretic Peptide Total Protein Albumin Globulin Albumin/Globulin Ratio Imaging: CXR 01/08 - bilateral scattered infiltrates, ?pulm congestion ; reviewed officail report, bibasilar infiltrates Assessment: 78y M w/pmhx of COPD, home O2 3L, pAfib on AC, Chronic Mild LV systolic dysfunction, sleep apnea, BPH, home self catheterization, depression; Noted recent [place] [facility] [place] for respiratory failure, bilateral pneumonia, intubated, discharged to Rehab and just discharged from there 2 days back. He returns to ER 01/08 for acute onset respiratory distress today. He was noted to have temp at home of 99.6 as per . In ER, not tachycardic or hypotensive, tachypnic , started on vapotherm for oxygen support. In ICU he was changed to NIV support. CXR revealed bilateral interstitial and some basal changes, started on IV abx and given Lasix 20mg Iv push. -Acute on chronic hypoxic respiratory failure -Chronic hypercapneic respiratory failure -Bilateral pulmonary congestion -suspected pneumonia -Acute decompensated LV systolic heart failure COPD Sleep apnea pAfib Plan: Neuro- -awake, alert -Delirium prec; avoid BDZ CVS- -HR stable; BP stable -pAfib; currently in NSR; cont metoprolol and dronedarone; cont eliquis for AC -BNP elevated with pulm congestion; suspect decompensated heart failure; s/p lasix 20mg iv; dose 40mg iv additional; start 40mg iv bid tomorrow -making urine, ellison placed -empiric IV abx for pneumonia -Maintain MAP>65 Resp- -acute on chronic hypoxic resp failure, chronic hypecap -do not suspect acute copd exacc -on HFNC but now on NIV 17/11 and appears more comfortable; wean down fio2 -CXR 01/08 with congestion patter more -IV diuretics -IV abx -sputum culture -Wean Fio2 to keep sat>92% -Bronchodilators PRN, Aspiration prec ID- tmax 100.6, wbc 15. LA neg -CXR 01/08 congestio? infiltrates? -Suspect also CHF exacc -send sputum culture ; blood cx sent; send urinalysis -IV cefepime started (day#1) GI- -clear liquid on NIV only for now -GI prophylaxis - ppi Renal- -Cr okay; K okay; no acidosis; noted metabolic alkalosis likely from chronic hypercapnea -BNP+, CXR with congestion; suspect decomp CHF -lasix 20mg iv x1 +lasix 40mg iv x1 now; start lasix 40mg iv bid -strict I/O, replete to keep K>4, Mg>2 -ellison as indicated Heme- anemia mild; hg 11-12 -cont eliquis for Afib AC Endo- Maintain BG<200, insulin protocol as needed Musculsk- pressure ulcer prophylaxis. Bedrest. Wounds- none Nutrition- clear liquid on NIV tonight DVT prophylaxis: eliquis, SCDs GI prophylaxis: ppi Central Line: no Arterial Line: no Ellison Cathetor: yes Disposition: Patient requires Critical Care/ICU for acute on chr hypoxic resp failure on NIV, decomp CHF, pneumonia Patient Clinical Status: guarded, critical Code Status: full code discussed plan and current status with at bedside. Total Critical Care time is 60 minutes, excluding procedures/teaching Addy Gonzalez MD Planning Advisor (Electronically Signed)
[2019-01-08 21:08] LABS: Influenza A Molecular NEGATIVE (Negative); Influenza B Molecular NEGATIVE (Negative)
--- NOTE | 2019-01-08 21:12 | HP ---
CC: Dr. Paz * HISTORY AND PHYSICAL: DATE OF ADMISSION: 01/08/19 PRIMARY CARE PROVIDER: Dr. Paz. ATTENDING PHYSICIAN WHILE IN THE HOSPITAL: Margot Meek MD * (dictated by Areli Macias NP) CHIEF COMPLAINT: Increased lethargy, shortness of breath. HISTORY OF PRESENT ILLNESS: Mr. Sethi is a 78-year-old male with a past medical history of chronic bilateral lower extremity edema, chronic respiratory failure requiring 3 L of O2 nasal cannula and BiPAP at night, history of systolic congestive heart failure with an EF of 45%, history of COPD, coronary artery disease, CVA without deficit, paroxysmal atrial fibrillation, on chronic Eliquis, history of AV malformation repair, who presented to the emergency room with complaint of increased lethargy since last evening. The reports that the patient was recently discharged from [facility] approximately 6 days ago. She said that the patient was doing well at home with no complaints. She reports that during the day yesterday, the patient was having increasing difficulty participating with PT and last evening, the patient was becoming more fatigued and lethargic. She reports that the patient became more lethargic today and was not waking up, so she brought him to the emergency room for further evaluation. The patient's denies any recent illnesses, fever, chills, nausea, vomiting, diarrhea. She denies any hemoptysis. She does report that he started with a mild cough last evening. She denies any difficulty with urination or dysuria. No dysphagia, arthralgias, myalgias, rashes, lesions. He does have an open sore noted to his left buttocks. He denies any psychosis or anxiety. While in the emergency room, the patient had routine lab work drawn and he was found to have WBCs of 15.6, respirations of 24 with suspected source of pneumonia for him meeting sepsis criteria. The patient was also found to have a pCO2 of 84. Given these findings, Hospital Medicine was asked to see and evaluate for admission. PAST MEDICAL HISTORY: Significant for: 1. Chronic obstructive pulmonary disease with chronic hypercapnic respiratory failure and hypoxic respiratory failure, on chronic home O2 at 3 L and BiPAP in the evening, /. 2. Systolic congestive heart failure. 3. Chronic obstructive sleep apnea. 4. Neurogenic bladder, for which he self-catheterizes. 5. Coronary artery disease. 6. CVA. 7. History of atrial fibrillation, on chronic Eliquis. 8. Left arm AV malformation repair. 9. Recent history of bilateral pneumonia. 10. Coronary artery disease. 11. Osteoarthritis. 12. Chronic left knee and low back pain. PAST SURGICAL HISTORY: 1. Bilateral hip replacements. 2. AVM repair of left arm. HOME MEDICATIONS: Include: 1. Eliquis 5 mg b.i.d. 2. Dronedarone HCL 400 mg b.i.d. 3. Percocet 5/325 one tablet every 6 hours as needed. 4. Lidocaine patch daily. 5. Celexa 20 mg p.o. daily. 6. Potassium 20 mEq p.o. daily. 7. Tylenol 650 mg every 6 hours as needed. 8. Ferrous sulfate 325 mg b.i.d. 9. Albuterol sulfate HFA inhaler 2 puffs q.4 hours as needed. 10. Colace 100 mg p.o. b.i.d. 11. MiraLAX 17 g daily as needed. 12. Avodart 0.5 mg daily. 13. Lasix 40 mg p.o. daily. 14. Multivitamin 1 tab p.o. daily. 15. Incruse Ellipta 1 inhalation daily. 16. Oxybutynin 5 mg p.o. daily. 17. Omeprazole 20 mg b.i.d. 18. Senna 1 tab as needed. 19. Rosuvastatin 5 mg p.o. daily. 20. Advair Diskus 1 inhale 2 times daily. 21. Wellbutrin 150 mg daily. 22. Carafate 1 g before meals and at bedtime. 23. Albuterol nebulizer every 4 hours as needed. 24. Gabapentin 100 mg at 8 a.m. and 2 p.m., gabapentin 300 mg at bedtime. 25. Metoprolol 25 mg daily. 26. Zofran 8 mg t.i.d. ALLERGIES: To IODINATED CONTRAST. FAMILY HISTORY: Father secondary to heart disease. Mother with a history of breast cancer and diabetes. SOCIAL HISTORY: The patient is retired. He was recently discharged from [facility] to home. He has been home for approximately 6 days. He lives with his . He reports rare alcohol use. Denies any tobacco or illicit drug use. Surrogate decision maker in the event he is unable to make his own decisions is his , Rekha Sethi. He is a full code. REVIEW OF SYSTEMS: Per the , the patient was without fevers, increased swelling, hemoptysis, nausea, vomiting, diarrhea, abdominal pain, hematuria, dysuria. No focal weakness. No visual complaints. No dysphagia, arthralgias, myalgias. He does have an open lesion to left buttocks. No psychosis or anxiety. PHYSICAL EXAMINATION GENERAL: At this time, Mr. Sethi is drowsy, resting on the stretcher in the emergency room, he does open his eyes to verbal stimuli. He does answer some questions, but is slow to respond. VITAL SIGNS: Blood pressure 121/73, heart rate 79, respirations are 25, O2 saturation 95% on Vapotherm, temperature was 98.6. HEENT: Head is atraumatic, normocephalic. Eyes: EOMs are intact. Sclerae anicteric and not pale. Oral mucosa appeared to be moist. NECK: Supple. LUNGS: With scattered rhonchi and diminished bilaterally. CARDIAC: S1, S2. Regular rate and rhythm. No rubs or gallops. ABDOMEN: Soft and nontender. Bowel sounds are active x4. EXTREMITIES: He is able to move all 4 extremities. There is no clubbing or cyanosis. Pedal pulses are +2 bilaterally. NEUROLOGIC: He is drowsy, resting on the stretcher in the emergency room. He does not appear to be in any acute distress. There are no gross focal deficits. SKIN: He does have an open lesion noted to the left buttocks. LABORATORY DATA AND DIAGNOSTIC STUDIES: WBCs are 15.6, RBCs 3.57, hemoglobin 11.5, hematocrit is 34, platelet count is 202. INR 1.23. APTT 34.5. PH of 7.36, pO2 is 84, pCO2 is 75, ABG HCO3 was 38.5. Sodium 143, potassium 4.3, chloride 95, carbon dioxide is 45, anion gap is 3, BUN is 19, creatinine 0.54, glucose 85. Lactic acid 0.8. Calcium 9.0. ALTs are 19, ALTs 15, alkaline phosphatase 70. Total CK 44. Troponin 0.12. C-reactive protein 121.24. BNP is 986. 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 He had an electrocardiogram that showed sinus rhythm at a rate of 90. ASSESSMENT AND PLAN: Mr. Sethi is a 78-year-old male with a history of chronic obstructive pulmonary disease with chronic hypercapnic respiratory failure and hypoxic respiratory failure, on chronic home oxygen therapy at 3 L and BiPAP in the evening, who presented to the emergency room with increased lethargy and cough. He will be admitted to the ICU for: 1. Acute on chronic hypercapnic respiratory failure. I suspect this could be exacerbated due to underlying chronic obstructive pulmonary disease and pneumonia. The patient was given vancomycin, Zosyn in the emergency room. He had blood cultures that are currently pending. I will add urine for Strep pneumoniae and Legionella. We will cover him for hospital-acquired pneumonia as the patient was recently at [facility] and discharged home approximately 6 days ago[address] I will place him on cefepime and vancomycin. We will get a repeat ABG now and place him on BiPAP. The patient could potentially need intubation. We will continue albuterol nebulizer as needed. 2. History of systolic congestive heart failure. I will continue the patient on Avodart, Multaq as previously prescribed. 3. Depression. He will continue on Lexapro as previously prescribed. 4. History of paroxysmal atrial fibrillation. The patient was recently cardioverted on 11/27/18 to sinus rhythm. The patient remains in sinus rhythm at this time. We will continue him on Eliquis, Multaq, and metoprolol as previously prescribed. 5. Neurogenic bladder. We will put a Osorio catheter in, so we can monitor the patient's I's and O's accurately. 6. Chronic obstructive pulmonary disease. The patient will continue on albuterol nebulizer every 4 hours and Incruse Ellipta and Advair inhalers as previously prescribed. 7. Gastroesophageal reflux disease. He will continue on omeprazole 20 mg p.o. b.i.d. 8. DVT prophylaxis. The patient is currently on Eliquis. 9. Code status. He is a full code. 10. Diet. The patient can have heart-healthy, caffeine okay diet. TIME SPENT: Time spent on this admission was 70 minutes, greater than half that time was spent at the bedside reviewing events leading thus far to his hospitalization, performing physical exam, and reviewing my plan of care. I have discussed this with my attending, Dr. Margot Meek; she is in agreement with my plan. ARELI MACIAS, KASSI [id number]/CPS #: [id number] DARREN
[2019-01-08] MEDS: Potassium Chlor TAB* 20 MEQ TAB.ER PO SCH (21:18)
[2019-01-08] MEDS: Sucralfate TAB* 1 GM PO SCH (21:18)
[2019-01-08] MEDS: Ferrous Sulfate TAB* 325 MG PO SCH (21:19)
[2019-01-08] MEDS: Apixaban* 5 MG TAB PO SCH (21:19)
[2019-01-08] MEDS: Gabapentin CAP(*) 300 MG PO SCH (21:19)
[2019-01-08 21:34] LABS: Urine Appearance Cloudy; Urine Bacteria 3+ (Absent); Urine Bilirubin Negative (Negative); Urine Blood 1+ (Negative); Urine Color Yellow; Urine Glucose Negative (Negative); Urine Ketones Trace (Negative); Urine Nitrite Negative (Negative); Urine Protein Negative (Negative); Urine Red Blood Cell Trace(0-2/hpf) (Absent); Urine Specific Gravity 1.013 (1.010-1.030); Urine Squamous Epithelial Cell Present (Absent); Urine Urobilinogen Negative (Negative); Urine White Blood Cell 1+(6-10/hpf) (Absent)
[2019-01-08] MEDS: Acetaminophen TAB* 325 MG PO PRN (23:37)
[2019-01-08] MEDS: Vancomycin(*) 1,250 MG in NS 0.9% 250 ML* 250 ML IVPB SCH (23:37)
[2019-01-09 01:00] LABS: Calcium 8.4 mg/dL (8.6-10.3); Magnesium 1.6 mg/dL (1.9-2.7)
[2019-01-09] MEDS ORDERED: Magnesium Sulfate 1 GM IV* 1 GM/100 ML BAG IV ONE (01:13)
[2019-01-09 05:36] LABS: ABS Eosinophils 0.2 10^3/ul (0-0.6); ABS Lymphocytes 1.8 10^3/ul (1.0-4.8); ABS Monocytes 1.3 10^3/ul (0-0.8); ABS Neutrophils 9.2 10^3/ul (1.5-7.7); Eosinophil % 1.4 %; Hematocrit 31 % (42-52); Hemoglobin 10.4 g/dL (14.0-18.0); Lymphocyte % 14.5 %; Mean Corpuscular HGB Conc 33 g/dL (31-36); Mean Corpuscular Hemoglobin 32 pg (27-31); Mean Corpuscular Volume 95 fL (80-94); Mean Platelet Volume 7.4 fL (7.4-10.4); Platelet Count 186 10^3/uL (150-450); Red Blood Count 3.29 10^6 /uL (4.18-5.48); Red Cell Distribution Width 14 % (10-15); White Blood Count 12.5 10^3/uL (3.5-10.8)
[2019-01-09 06:26] LABS: BUN/Creatinine Ratio 31.9 (8-20); Calcium 8.4 mg/dL (8.6-10.3); EGFR African American 210.1 (>60); EGFR Non-African American 173.6 (>60); Potassium 3.3 mmol/L (3.5-5.0)
[2019-01-09] MEDS ORDERED: Potassium Chlor TAB* 20 MEQ TAB.ER PO ONE (06:55)
[2019-01-09 07:14] LABS: Magnesium 1.7 mg/dL (1.9-2.7)
[2019-01-09] MEDS: Mometasone/Formoter 200/5 MDI INH SCH ×3 (07:47→12:19)
[2019-01-09] MEDS: SPIRIVA Respimat* (tiotropium) 2.5 mcg/inh Inhaler INH SCH (07:48)
[2019-01-09] MEDS: Cefepime 1 GM in Dextrose(*) 1 GM/50 ML q12h (Duplex) IV SCH ×2 (07:51→20:29)
[2019-01-09] MEDS: BuPROPion XL* 150 MG TAB.XL PO SCH (08:33)
[2019-01-09] MEDS: Pantoprazole TAB * 40 MG TAB PO SCH (08:33)
[2019-01-09] MEDS: Atorvastatin* 10 MG TAB PO SCH (08:33)
[2019-01-09] MEDS: Sucralfate TAB* 1 GM PO SCH ×4 (08:33→20:31)
[2019-01-09] MEDS: Potassium Chlor TAB* 20 MEQ TAB.ER PO SCH ×2 (08:33→20:31)
[2019-01-09] MEDS: Gabapentin CAP(*) 100 MG PO SCH ×2 (08:34→14:44)
[2019-01-09] MEDS: Metoprolol Succinate XL TAB* 25 MG PO SCH (08:34)
[2019-01-09] MEDS: Dronedarone TAB* 400 MG PO SCH ×2 (08:34→16:26)
[2019-01-09] MEDS: Citalopram TAB* 20 MG PO SCH (08:34)
[2019-01-09] MEDS: Finasteride TAB* 5 MG PO SCH (08:34)
[2019-01-09] MEDS: Apixaban* 5 MG TAB PO SCH ×2 (08:34→20:31)
[2019-01-09] MEDS: Ferrous Sulfate TAB* 325 MG PO SCH ×2 (08:34→20:31)
[2019-01-09] MEDS: Vancomycin(*) 1,250 MG in NS 0.9% 250 ML* 250 ML IVPB SCH ×2 (08:48→16:21)
[2019-01-09] MEDS ORDERED: Furosemide IV* 10 MG/ML VIAL (40 MG) IV SCH (10:00)
[2019-01-09] MEDS ORDERED: Magnesium Sulfate IV* 3 GM in NS 0.9% 100 ML* 100 ML IVPB ONE (10:00)
--- NOTE | 2019-01-09 11:14 | PN ---
Progress Note - Progress Note Date of Service: 01/09/19 Note: Progress Note -- Critical Care 24 hour events -tmax 100.6, BP stable, HR stable, NSR -awake, alert, confused today -off NIV overnight, on HFNC; this morning now on HFNC 70% 10lpm now; sats mid 90s, RR 20 -no distress noted, limited ROS due to confusion -cough+, follows commands, sputum+; no chest pain -good uop noted overnight; ellison+ Tele: NSR with PVCs Vitals: Vital Signs Temp 98.5 F 01/09/19 08:00 Pulse 71 01/09/19 10:01 Resp 24 01/09/19 10:01 BP 168/88 01/09/19 09:08 Pulse Ox 91 01/09/19 10:01 Intake & Output 01/08/19 01/09/19 01/09/19 18:59 06:59 18:59 Intake Total 643 150 Output Total 2460 500 Balance -1817 -350 Weight 108.862 kg 112.5 kg Intake: IV Fluids 270 NS (0.9%) 20 IVPB 297 ABX - VANCOMYCIN 297 Medicated IV 76 Mag Sulfate 76 Oral 150 Output: Ellison 2460 500 O2/Vent: HFNC 70% 10lpm Infusions: heplock Current Medications: Acetaminophen (Tylenol Tab*) 650 mg PO Q4H PRN PRN Reason: MILD PAIN or TEMP > 100.4 Last Admin: 01/08/19 23:37 Dose: 650 mg Albuterol (Ventolin 2.5 Mg/3 Ml Neb.Damaris*) 2.5 mg INH [id number] AWAKE PRN PRN Reason: sob/wheezing Apixaban (Eliquis*) 5 mg PO BID [facility] Last Admin: 01/09/19 08:34 Dose: 5 mg Atorvastatin Calcium (Lipitor*) 10 mg PO DAILY [facility]; Protocol Last Admin: 01/09/19 08:33 Dose: 10 mg Bupropion HCl (Wellbutrin Xl *) 150 mg PO DAILY [facility] Last Admin: 01/09/19 08:33 Dose: 150 mg Citalopram Hydrobromide (Celexa Tab*) 20 mg PO QAM [facility] Last Admin: 01/09/19 08:34 Dose: 20 mg Docusate Sodium (Colace Cap*) 100 mg PO BID PRN PRN Reason: CONSTIPATION Dronedarone (Multaq Tab*) 400 mg PO BID WITH MEALS [facility] Last Admin: 01/09/19 08:34 Dose: 400 mg Ferrous Sulfate (Ferrous Sulfate Tab*) 325 mg PO BID [facility] Last Admin: 01/09/19 08:34 Dose: 325 mg Finasteride (Proscar Tab*) 5 mg PO DAILY [facility]; Protocol Last Admin: 01/09/19 08:34 Dose: 5 mg Furosemide (Lasix Iv*) 40 mg IV BID [facility] Last Admin: 01/09/19 10:44 Dose: 40 mg Gabapentin (Neurontin Cap(*)) 100 mg PO 0800,1400 [facility] Last Admin: 01/09/19 08:34 Dose: 100 mg Gabapentin (Neurontin Cap(*)) 300 mg PO BEDTIME [facility] Last Admin: 01/08/19 21:19 Dose: 300 mg Cefepime HCl (Maxipime 1 Gm In Dextrose Duplex (*)) 1 gm in 50 mls @ 100 mls/ hr IV Q12H [facility] Last Admin: 01/09/19 07:51 Dose: 100 mls/hr Vancomycin HCl 1,250 mg/ (Sodium Chloride) 250 mls @ 166.667 mls/hr IVPB Q8H [facility] Last Admin: 01/09/19 08:48 Dose: 166.667 mls/hr Magnesium Sulfate 3 gm/ Sodium (Chloride) 106 mls @ 53 mls/hr IVPB ONCE ONE Stop: 01/09/19 11:59 Last Admin: 01/09/19 10:54 Dose: 53 mls/hr Metoprolol Succinate (Toprol Xl Tab*) 25 mg PO DAILY [facility] Last Admin: 01/09/19 08:34 Dose: 25 mg Mometasone Furoate/Formoterol Fumar (Dulera 200/5 Mdi*) 2 puff INH BID [facility] Last Admin: 01/09/19 07:57 Dose: Not Given Oxycodone/Acetaminophen (Percocet 5/325 Tab*) 1 tab PO Q6H PRN PRN Reason: PAIN - SEVERE Pantoprazole Sodium (Protonix Tab*) 40 mg PO DAILY [facility] Last Admin: 01/09/19 08:33 Dose: 40 mg Pharmacy Consult (Vancomycin Per Pharmacy*) 1 note FOLLOW UP .VANC PER PHARMACY [facility]; Protocol Pharmacy Profile Note (Vancomycin Trough Check) 1 note FOLLOW UP 3881 ONE Stop: 01/10/19 07:31 Polyethylene Glycol/Electrolytes (Miralax*) 17 gm PO DAILY PRN PRN Reason: CONSTIPATION Potassium Chloride (Klor Con Er Tab*) 20 meq PO BID [facility] Last Admin: 01/09/19 08:33 Dose: 20 meq Senna (Senokot 8.6 Mg Tab*) 1 tab PO DAILY PRN PRN Reason: CONSTIPATION Sucralfate (Carafate*) 1 gm PO ACHS [facility] Last Admin: 01/09/19 08:33 Dose: 1 gm Tiotropium [place] (Spiriva Respimat 2.5 Mcg) 2 puff INH DAILY [facility] Last Admin: 01/09/19 07:48 Dose: 2 puff Physical Exam: Constitutional: awake, alert, less tachypnia, no diaphoresis Head: normocephalic, atraumatic Eyes: no pallor, no icterus ENT: moist mucous membranes Neck: soft, supple, no jvd, no stridor CVS: normal rate, regular, no murmur Chest/Resp: bilateral air entry, no rhales, no wheeze, no rhonchi, no acc muscle use Abdomen/GI: soft, nontender, nondistended, BS+ Ext/Msk: warm, pulses+, no edema Skin: intact, warm Neuro: awake, alert, orientedx1, moving all extremities, no gross focal deficit Psych: normal affect Labs: Laboratory Results - last 24 hr 01/08/19 01/08/19 01/08/19 15:20 15:33 15:33 WBC 15.6 H RBC 3.57 L Hgb 11.5 L Hct 34 L MCV 96 H MCH 32 H MCHC 34 RDW 14 Plt Count 202 MPV 7.5 Neut % (Auto) 79.0 Lymph % (Auto) 12.3 [place] % (Auto) 8.3 Eos % (Auto) 0.2 Baso % (Auto) 0.2 Absolute Neuts (auto) 12.3 H Absolute Lymphs (auto) 1.9 Absolute Monos (auto) 1.3 H Absolute Eos (auto) 0.0 Absolute Basos (auto) 0.0 Absolute Nucleated RBC 0.0 Nucleated RBC % 0.1 INR (Anticoag Therapy) APTT Patient Temperature Not Reportable ABG pH 7.36 ABG pH (Temp Correct) Not Reportable ABG pCO2 84 H* ABG pCO2 (Temp Corrct Not Reportable ABG pO2 75 L ABG pO2 (Temp Correct Not Reportable ABG HCO3 38.5 H ABG O2 Saturation 97.2 ABG Base Excess 17.5 H Respiration Rate Not Reportable O2 Delivery Device nrb Ventilator Type Not Reportable Vent Mode Not Reportable FiO2 4 Inspiratory Time Not Reportable PEEP Not Reportable Pressure Support Not Reportable Pressure Control Not Reportable EPAP Not Reportable IPAP Not Reportable BiPAP Not Reportable Sodium 143 Potassium 4.3 Chloride 95 L Carbon Dioxide 45 H* Anion Gap 3 BUN 19 Creatinine 0.54 L Est GFR ( Amer) 179.0 Est GFR (Non-Af Amer) 147.9 BUN/Creatinine Ratio 35.2 H Glucose 85 Lactic Acid Calcium 9.0 Magnesium Total Bilirubin 0.40 AST 19 ALT 15 Alkaline Phosphatase 70 Total Creatine Kinase 44 CK-MB (CK-2) 3.9 Troponin I 0.12 H* C-Reactive Protein 121.24 H B-Natriuretic Peptide Total Protein 6.0 L Albumin 3.3 Globulin 2.7 Albumin/Globulin Ratio 1.2 Urine Color Urine Appearance Urine pH Ur Specific [place] Urine Protein Urine Ketones Urine Blood Urine Nitrate Urine Bilirubin Urine Urobilinogen Ur Leukocyte Esterase Urine WBC (Auto) Urine RBC (Auto) Ur Squamous Epith Cells Urine Bacteria Hyaline Casts Urine Glucose Influenza A (Rapid) Influenza B (Rapid) 01/08/19 01/08/19 01/08/19 15:33 15:33 15:33 WBC RBC Hgb Hct MCV MCH MCHC RDW Plt Count MPV Neut % (Auto) Lymph % (Auto) [place] % (Auto) Eos % (Auto) Baso % (Auto) Absolute Neuts (auto) Absolute Lymphs (auto) Absolute Monos (auto) Absolute Eos (auto) Absolute Basos (auto) Absolute Nucleated RBC Nucleated RBC % INR (Anticoag Therapy) 1.23 H APTT 34.5 Patient Temperature ABG pH ABG pH (Temp Correct) ABG pCO2 ABG pCO2 (Temp Corrct ABG pO2 ABG pO2 (Temp Correct ABG HCO3 ABG O2 Saturation ABG Base Excess Respiration Rate O2 Delivery Device Ventilator Type Vent Mode FiO2 Inspiratory Time PEEP Pressure Support Pressure Control EPAP IPAP BiPAP Sodium Potassium Chloride Carbon Dioxide Anion Gap BUN Creatinine Est GFR ( Amer) Est GFR (Non-Af Amer) BUN/Creatinine Ratio Glucose Lactic Acid 0.8 Calcium Magnesium Total Bilirubin AST ALT Alkaline Phosphatase Total Creatine Kinase CK-MB (CK-2) Troponin I C-Reactive Protein B-Natriuretic Peptide 986 H Total Protein Albumin Globulin Albumin/Globulin Ratio Urine Color Urine Appearance Urine pH Ur Specific [place] Urine Protein Urine Ketones Urine Blood Urine Nitrate Urine Bilirubin Urine Urobilinogen Ur Leukocyte Esterase Urine WBC (Auto) Urine RBC (Auto) Ur Squamous Epith Cells Urine Bacteria Hyaline Casts Urine Glucose Influenza A (Rapid) Influenza B (Rapid) 01/08/19 01/08/19 01/08/19 18:55 20:40 21:00 WBC RBC Hgb Hct MCV MCH MCHC RDW Plt Count MPV Neut % (Auto) Lymph % (Auto) [place] % (Auto) Eos % (Auto) Baso % (Auto) Absolute Neuts (auto) Absolute Lymphs (auto) Absolute Monos (auto) Absolute Eos (auto) Absolute Basos (auto) Absolute Nucleated RBC Nucleated RBC % INR (Anticoag Therapy) APTT Patient Temperature Not Reportable ABG pH 7.38 ABG pH (Temp Correct) Not Reportable ABG pCO2 79 H* ABG pCO2 (Temp Corrct Not Reportable ABG pO2 94 ABG pO2 (Temp Correct Not Reportable ABG HCO3 38.4 H ABG O2 Saturation 99.2 H ABG Base Excess 17.3 H Respiration Rate Not Reportable O2 Delivery Device vapo Ventilator Type Not Reportable Vent Mode Not Reportable FiO2 70 Inspiratory Time Not Reportable PEEP Not Reportable Pressure Support Not Reportable Pressure Control Not Reportable EPAP Not Reportable IPAP Not Reportable BiPAP Not Reportable Sodium Potassium Chloride Carbon Dioxide Anion Gap BUN Creatinine Est GFR ( Amer) Est GFR (Non-Af Amer) BUN/Creatinine Ratio Glucose Lactic Acid Calcium Magnesium Total Bilirubin AST ALT Alkaline Phosphatase Total Creatine Kinase CK-MB (CK-2) Troponin I C-Reactive Protein B-Natriuretic Peptide Total Protein Albumin Globulin Albumin/Globulin Ratio Urine Color Yellow Urine Appearance Cloudy Urine pH 5.0 Ur Specific [place] 1.013 Urine Protein Negative Urine Ketones Trace A Urine Blood 1+ A Urine Nitrate Negative Urine Bilirubin Negative Urine Urobilinogen Negative Ur Leukocyte Esterase 1+ A Urine WBC (Auto) 1+(6-10/hpf) A Urine RBC (Auto) Trace(0-2/hpf) Ur Squamous Epith Cells Present A Urine Bacteria 3+ A Hyaline Casts Present A Urine Glucose Negative Influenza A (Rapid) Negative Influenza B (Rapid) Negative 01/09/19 01/09/19 01/09/19 00:25 05:15 05:15 WBC 12.5 H RBC 3.29 L Hgb 10.4 L Hct 31 L MCV 95 H MCH 32 H MCHC 33 RDW 14 Plt Count 186 MPV 7.4 Neut % (Auto) 73.7 Lymph % (Auto) 14.5 [place] % (Auto) 10.0 Eos % (Auto) 1.4 Baso % (Auto) 0.4 Absolute Neuts (auto) 9.2 H Absolute Lymphs (auto) 1.8 Absolute Monos (auto) 1.3 H Absolute Eos (auto) 0.2 Absolute Basos (auto) 0.0 Absolute Nucleated RBC 0.0 Nucleated RBC % 0.0 INR (Anticoag Therapy) APTT Patient Temperature ABG pH ABG pH (Temp Correct) ABG pCO2 ABG pCO2 (Temp Corrct ABG pO2 ABG pO2 (Temp Correct ABG HCO3 ABG O2 Saturation ABG Base Excess Respiration Rate O2 Delivery Device Ventilator Type Vent Mode FiO2 Inspiratory Time PEEP Pressure Support Pressure Control EPAP IPAP BiPAP Sodium 142 Potassium 3.3 L Chloride 94 L Carbon Dioxide 43 H* Anion Gap 5 BUN 15 Creatinine 0.47 L Est GFR ( Amer) 210.1 Est GFR (Non-Af Amer) 173.6 BUN/Creatinine Ratio 31.9 H Glucose 79 Lactic Acid Calcium 8.4 L 8.4 L Magnesium 1.6 L 1.7 L Total Bilirubin AST ALT Alkaline Phosphatase Total Creatine Kinase CK-MB (CK-2) Troponin I C-Reactive Protein B-Natriuretic Peptide Total Protein Albumin Globulin Albumin/Globulin Ratio Urine Color Urine Appearance Urine pH Ur Specific [place] Urine Protein Urine Ketones Urine Blood Urine Nitrate Urine Bilirubin Urine Urobilinogen Ur Leukocyte Esterase Urine WBC (Auto) Urine RBC (Auto) Ur Squamous Epith Cells Urine Bacteria Hyaline Casts Urine Glucose Influenza A (Rapid) Influenza B (Rapid) Imaging: CXR 01/08 - bilateral scattered infiltrates, ?pulm congestion ; reviewed officail report, bibasilar infiltrates CXR 01/09 pending Assessment: 78y M w/pmhx of COPD, home O2 3L, pAfib on AC, Chronic Mild LV systolic dysfunction, sleep apnea, BPH, home self catheterization, depression; Noted recent admission to [facility] 10/2018 for respiratory failure, bilateral pneumonia, intubated, discharged to Rehab and just discharged from there 2 days back. He returns to ER 10 for acute onset respiratory distress today. He was noted to have temp at home of 99.6 as per . In ER, not tachycardic or hypotensive, tachypnic , started on vapotherm for oxygen support. In ICU he was changed to NIV support. CXR revealed bilateral interstitial and some basal changes, started on IV abx and given Lasix 20mg Iv push. -Acute on chronic hypoxic respiratory failure -Chronic hypercapneic respiratory failure -Bilateral pulmonary congestion -suspected pneumonia -Acute decompensated LV systolic heart failure COPD Sleep apnea pAfib Plan: Neuro- -awake, alert; confused this morning -cont citalopram, buproprion -cont gabapentin for pain -percocet q6h for pain -Delirium prec; avoid BDZ CVS- -HR stable; BP stable -pAfib; currently in NSR; cont metoprolol and dronedarone; cont eliquis for AC -good uop; cont lasix 40mg iv bid for decomp CHF -CXr today; BNP tomorrow -empiric IV abx for pneumonia -Maintain MAP>65 Resp- -acute on chronic hypoxic resp failure, chronic hypecap -do not suspect acute copd exacc -on HFNC 70% 10LPM now; if stable, wean to NC in next few hours -CXR ordered today -CXR 01/08 with congestion patter more -IV diuretics -IV abx -sputum with gram+ on smear -Wean Fio2 to keep sat>92% -Bronchodilators PRN, Aspiration prec ID- tmax 100.6, wbc 15-12. LA neg -CXR 01/08 congestio? infiltrates? -Suspect also CHF exacc -sputum smear with gram+; pending culture -IV cefepime started (day#2), vanco (day#2) GI- -cardiac diet -GI prophylaxis - ppi Renal- -Cr okay; replete K and Mg -good uop; Cr stable; cont lasix 40mg iv bid -check BNP tomorrow; check CXR today -strict I/O, replete to keep K>4, Mg>2 -ellison as indicated Heme- anemia mild; hg 10-11 -cont eliquis for Afib AC Endo- Maintain BG<200, insulin protocol as needed Musculsk- pressure ulcer prophylaxis. oob to chair Wounds- none Nutrition- cardiac diet DVT prophylaxis: eliquis, SCDs GI prophylaxis: ppi Central Line: no Arterial Line: no Ellison Cathetor: yes Disposition: Patient requires Critical Care/ICU for acute on chr hypoxic resp failure on NIV, decomp CHF, pneumonia Patient Clinical Status: guarded, critical Code Status: full code Total Critical Care time is 45 minutes, excluding procedures/teaching Addy Gonzalez MD Detective [employer] (Electronically Signed)
[2019-01-09] MEDS ORDERED: Bisacodyl SUPP* 10 MG SUPP PR ONE (11:59)
[2019-01-09] MEDS ORDERED: Polyethylene Glycol 3350* 17 GM PACKET PO PRN (11:59)
[2019-01-09] MEDS: Furosemide IV* 10 MG/ML VIAL (40 MG) IV SCH (16:26)
[2019-01-09] MEDS: Docusate CAP* 100 MG PO SCH (20:31)
[2019-01-09] MEDS: Gabapentin CAP(*) 300 MG PO SCH (20:31)
[2019-01-10] MEDS: Vancomycin(*) 1,250 MG in NS 0.9% 250 ML* 250 ML IVPB SCH ×5 (00:06→20:50)
[2019-01-10] MEDS: Acetaminophen TAB* 325 MG PO PRN (01:36)
[2019-01-10 05:56] LABS: Hematocrit 35 % (42-52); Hemoglobin 11.7 g/dL (14.0-18.0); Mean Corpuscular HGB Conc 34 g/dL (31-36); Mean Corpuscular Hemoglobin 32 pg (27-31); Mean Corpuscular Volume 95 fL (80-94); Mean Platelet Volume 7.6 fL (7.4-10.4); Platelet Count 211 10^3/uL (150-450); Red Cell Distribution Width 15 % (10-15); White Blood Count 13.2 10^3/uL (3.5-10.8)
[2019-01-10 06:07] LABS: BUN/Creatinine Ratio 23.1 (8-20); Calcium 8.7 mg/dL (8.6-10.3); EGFR Non-African American 154.5 (>60); Phosphorus 1.5 mg/dL (2.5-5.0); Potassium 3.4 mmol/L (3.5-5.0)
[2019-01-10] MEDS: Mometasone/Formoter 200/5 MDI INH SCH ×2 (06:45→07:26)
[2019-01-10] MEDS: SPIRIVA Respimat* (tiotropium) 2.5 mcg/inh Inhaler INH SCH (07:26)
[2019-01-10] MEDS ORDERED: Vancomycin Trough Check NOTE FOLLOW UP ONE ×2 (07:30→11:30)
[2019-01-10] MEDS ORDERED: Potassium Phosphate IV* 15 MMOLE in NS 0.9% 250 ML* 250 ML IVPB ONE ×2 (07:30→12:00)
[2019-01-10] MEDS: Furosemide IV* 10 MG/ML VIAL (40 MG) IV SCH ×2 (08:28→16:16)
[2019-01-10] MEDS: Cefepime 1 GM in Dextrose(*) 1 GM/50 ML q12h (Duplex) IV SCH ×2 (08:28→20:44)
[2019-01-10 08:52] LABS: Vancomycin Trough 23.5 mcg/mL
[2019-01-10] MEDS: Sucralfate TAB* 1 GM PO SCH ×4 (08:55→20:51)
[2019-01-10] MEDS: Apixaban* 5 MG TAB PO SCH ×2 (08:57→20:51)
[2019-01-10] MEDS: Citalopram TAB* 20 MG PO SCH (08:57)
[2019-01-10] MEDS: Metoprolol Succinate XL TAB* 25 MG PO SCH (08:57)
[2019-01-10] MEDS: Finasteride TAB* 5 MG PO SCH (08:57)
[2019-01-10] MEDS: Ferrous Sulfate TAB* 325 MG PO SCH ×2 (08:57→20:51)
[2019-01-10] MEDS: Atorvastatin* 10 MG TAB PO SCH (08:57)
[2019-01-10] MEDS: Dronedarone TAB* 400 MG PO SCH ×2 (08:57→16:13)
[2019-01-10] MEDS: Pantoprazole TAB * 40 MG TAB PO SCH (08:57)
[2019-01-10] MEDS: Gabapentin CAP(*) 100 MG PO SCH ×2 (08:57→13:58)
[2019-01-10] MEDS ORDERED: Influenza VAC *QUAD* 2019-20* 0.5 ML SYRINGE IM ONE (09:00)
[2019-01-10] MEDS: Potassium Chlor TAB* 20 MEQ TAB.ER PO SCH (09:05)
[2019-01-10] MEDS: Docusate CAP* 100 MG PO SCH ×2 (09:06→21:03)
[2019-01-10] MEDS: BuPROPion XL* 150 MG TAB.XL PO SCH (09:06)
[2019-01-10] MEDS ORDERED: Potassium Phosphate IV* 30 MMOLE in NS 0.9% 250 ML* 250 ML IVPB ONE (09:27)
[2019-01-10] MEDS ORDERED: Metoprolol Tartrate IV* 1 MG/ML 5 ML VIAL ONE (09:31)
[2019-01-10] MEDS: Metoprolol Tartrate IV* 1 MG/ML 5 ML VIAL IV PRN (09:33)
[2019-01-10] MEDS ORDERED: Potassium Chloride* LIQUID 20 MEQ/15 ML UDC PO ONE (09:56)
[2019-01-10] MEDS ORDERED: NS 0.9% 1000 ML** 1,000 ML IV ONE (11:14)
--- NOTE | 2019-01-10 11:33 | PN ---
Progress Note - Progress Note Date of Service: 01/10/19 Note: Progress Note -- Critical Care 24 hour events -tmax 100.6, BP stable, afib all night to 140s -given metoprolol IV by me this morning -awake, alert, confused though+ -on NC all day yesterday, NIV overnight; no sig resp distress noted now -good uop with lasix all day -after i saw patient his morning at 1035 he became unresponsive, still breathing though, not responding to painful stimuli, sats 90s, HR 90s, BP 110- 120s - came in also at that time -edinson dean called; gabino high NIH, then he came more alert and responsive; moving all ext with good strength in uppers, lowers known to be weak but moving them, no facial droop, some aphasia, but this was improving also slowly -neuro at bedside; for CT brain stat; no CTA due to contrast allergy Tele: afib with RVR Vitals: Vital Signs Temp 100.6 F 01/10/19 10:41 Pulse 90 01/10/19 10:41 Resp 25 01/10/19 10:41 BP 123/81 01/10/19 10:41 Pulse Ox 98 01/10/19 10:41 Intake & Output 01/09/19 01/10/19 01/10/19 18:59 06:59 18:59 Intake Total 919 772 520 Output Total 2575 925 1005 Balance -1656 -153 -485 Weight 105.9 kg Intake: IV Fluids 384 115 ABX - VANCOMYCIN 265 Cefepine 65 NS (0.9%) 54 115 IVPB 657 ABX - VANCOMYCIN 595 Cefepine 62 Medicated IV 115 Mag Sulfate 115 Oral 420 520 Output: Ellison 2575 925 1005 Other: Date of Last Bowel 01/09/19 Movement # Bowel Movements 5 1 Estimated Stool Amount Small Small O2/Vent: NC 5 L Infusions: heplock Current Medications: Acetaminophen (Tylenol Tab*) 650 mg PO Q4H PRN PRN Reason: MILD PAIN or TEMP > 100.4 Last Admin: 01/10/19 01:36 Dose: 650 mg Albuterol (Ventolin 2.5 Mg/3 Ml Neb.Damaris*) 2.5 mg INH [id number] AWAKE PRN PRN Reason: sob/wheezing Apixaban (Eliquis*) 5 mg PO BID [facility] Last Admin: 01/10/19 08:57 Dose: 5 mg Atorvastatin Calcium (Lipitor*) 10 mg PO DAILY [facility]; Protocol Last Admin: 01/10/19 08:57 Dose: 10 mg Bupropion HCl (Wellbutrin Xl *) 150 mg PO DAILY [facility] Last Admin: 01/10/19 09:06 Dose: 150 mg Citalopram Hydrobromide (Celexa Tab*) 20 mg PO QAM [facility] Last Admin: 01/10/19 08:57 Dose: 20 mg Docusate Sodium (Colace Cap*) 100 mg PO BID [facility] Last Admin: 01/10/19 09:06 Dose: Not Given Dronedarone (Multaq Tab*) 400 mg PO BID WITH MEALS [facility] Last Admin: 01/10/19 08:57 Dose: 400 mg Ferrous Sulfate (Ferrous Sulfate Tab*) 325 mg PO BID [facility] Last Admin: 01/10/19 08:57 Dose: 325 mg Finasteride (Proscar Tab*) 5 mg PO DAILY [facility]; Protocol Last Admin: 01/10/19 08:57 Dose: 5 mg Furosemide (Lasix Iv*) 60 mg IV 0900,1700 [facility] Last Admin: 01/10/19 08:28 Dose: 60 mg Gabapentin (Neurontin Cap(*)) 100 mg PO 0800,1400 [facility] Last Admin: 01/10/19 08:57 Dose: 100 mg Gabapentin (Neurontin Cap(*)) 300 mg PO BEDTIME [facility] Last Admin: 01/09/19 20:31 Dose: 300 mg Cefepime HCl (Maxipime 1 Gm In Dextrose Duplex (*)) 1 gm in 50 mls @ 100 mls/ hr IV Q12H [facility] Last Admin: 01/10/19 08:28 Dose: 100 mls/hr Potassium Phosphate 15 mmole/ (Sodium Chloride) 255 mls @ 42 mls/hr IVPB ONCE ONE Stop: 01/10/19 13:34 Last Admin: 01/10/19 08:07 Dose: 42 mls/hr Vancomycin HCl 1,250 mg/ (Sodium Chloride) 250 mls @ 166.667 mls/hr IVPB Q8H [facility] Sodium Chloride (Ns 0.9% 1000 Ml) 1,000 mls @ 1,000 mls/hr IV ED ONCE ONE Stop: 01/10/19 12:13 Potassium Phosphate 15 mmole/ (Sodium Chloride) 255 mls @ 42 mls/hr IVPB ONCE ONE Stop: 01/10/19 17:20 Metoprolol Succinate (Toprol Xl Tab*) 50 mg PO DAILY [facility] Metoprolol Tartrate (Lopressor Iv*) 5 mg IV Q6H PRN PRN Reason: HR>120 Last Admin: 01/10/19 09:33 Dose: 5 mg Mometasone Furoate/Formoterol Fumar (Dulera 200/5 Mdi*) 2 puff INH BID [facility] Last Admin: 01/10/19 07:26 Dose: 2 puff Ondansetron HCl (Zofran Inj*) 4 mg IV Q6H PRN PRN Reason: NAUSEA Oxycodone/Acetaminophen (Percocet 5/325 Tab*) 1 tab PO Q6H PRN PRN Reason: PAIN - SEVERE Pantoprazole Sodium (Protonix Tab*) 40 mg PO DAILY [facility] Last Admin: 01/10/19 08:57 Dose: 40 mg Pharmacy Consult (Vancomycin Per Pharmacy*) 1 note FOLLOW UP .VANC PER PHARMACY [facility]; Protocol Pharmacy Profile Note (Vancomycin Trough Check) 1 note FOLLOW UP 1130 ONE Stop: 01/10/19 11:31 Polyethylene Glycol/Electrolytes (Miralax*) 17 gm PO DAILY PRN PRN Reason: CONSTIPATION Polyethylene Glycol/Electrolytes (Miralax*) 17 gm PO DAILY PRN PRN Reason: CONSTIPATION Senna (Senokot 8.6 Mg Tab*) 1 tab PO DAILY PRN PRN Reason: CONSTIPATION Sucralfate (Carafate*) 1 gm PO ACHS [facility] Last Admin: 01/10/19 08:55 Dose: 1 gm Tiotropium [place] (Spiriva Respimat 2.5 Mcg) 2 puff INH DAILY [facility] Last Admin: 01/10/19 07:26 Dose: 2 puff Physical Exam: Constitutional: awake, alert, less tachypnia, no diaphoresis ; was then unresponsive later on, slowly improved, still sluggish, some slow responsives, no dysarthria noted though Head: normocephalic, atraumatic Eyes: no pallor, no icterus ENT: moist mucous membranes Neck: soft, supple, no jvd, no stridor CVS: tachy, irreg, no murmur Chest/Resp: bilateral air entry, no rhales, no wheeze, no rhonchi, no acc muscle use Abdomen/GI: soft, nontender, nondistended, BS+ Ext/Msk: warm, pulses+, no edema Skin: intact, warm Neuro: awake, alert, orientedx1, moving all extremities, no gross focal deficit ; no focal deficit noted, no facial droop, some aphasia early on, no dysarthria , no gaze abnormality appreciated, still lethargic Psych: difficult to assess Labs: Laboratory Results - last 24 hr 01/10/19 01/10/19 01/10/19 05:37 05:37 05:37 WBC 13.2 H RBC 3.70 L Hgb 11.7 L Hct 35 L MCV 95 H MCH 32 H MCHC 34 RDW 15 Plt Count 211 MPV 7.6 ABG pH ABG pCO2 ABG pO2 ABG HCO3 ABG O2 Saturation ABG Base Excess Sodium 141 Potassium 3.4 L Chloride 95 L Carbon Dioxide 41 H* Anion Gap 5 BUN 12 Creatinine 0.52 L Est GFR ( Amer) 187.0 Est GFR (Non-Af Amer) 154.5 BUN/Creatinine Ratio 23.1 H Glucose 104 H Calcium 8.7 Phosphorus 1.5 L Magnesium 2.0 B-Natriuretic Peptide 484 H Vancomycin Trough 23.5 01/10/19 10:45 WBC RBC Hgb Hct MCV MCH MCHC RDW Plt Count MPV ABG pH 7.51 H ABG pCO2 56 H ABG pO2 133 H ABG HCO3 39.4 H ABG O2 Saturation 99.5 H ABG Base Excess 18.5 H Sodium Potassium Chloride Carbon Dioxide Anion Gap BUN Creatinine Est GFR ( Amer) Est GFR (Non-Af Amer) BUN/Creatinine Ratio Glucose Calcium Phosphorus Magnesium B-Natriuretic Peptide Vancomycin Trough Imaging: CXR 01/08 - bilateral scattered infiltrates, ?pulm congestion ; reviewed officail report, bibasilar infiltrates CXR 01/10 - improved congestion and infitlrates than 01/09 -CT brain 01/10 stat with similar left BG hyperdensity from 2018, i do not see a large bleed; pending official read Assessment: 78y M w/pmhx of COPD, home O2 3L, pAfib on AC, Chronic Mild LV systolic dysfunction, sleep apnea, BPH, home self catheterization, depression; Noted recent admission to [facility] 10/2018 for respiratory failure, bilateral pneumonia, intubated, discharged to Rehab and just discharged from there 2 days back. He returns to ER 01/08 for acute onset respiratory distress today. He was noted to have temp at home of 99.6 as per . In ER, not tachycardic or hypotensive, tachypnic , started on vapotherm for oxygen support. In ICU he was changed to NIV support. CXR revealed bilateral interstitial and some basal changes, started on IV abx and given Lasix 20mg Iv push. -Acute on chronic hypoxic respiratory failure -Chronic hypercapneic respiratory failure -Bilateral pulmonary congestion -suspected pneumonia -Acute decompensated LV systolic heart failure' -encephalopathy COPD Sleep apnea pAfib Plan: Neuro- -awake, alert; confused this morning -unresponive episode, improved by itself; ABG withotu acute hypercapnea -CT brain official read pending -no CTA due to allergy to contrast -appears better now and back to AM baseline -neuro consult -neurochecks -not a tpa candidate given he is on apixiban already for AFib AC -unlikely to be a LVO given no focal neuro signs noted now; TIA? metabolic? -cont citalopram, buproprion -cont gabapentin for pain -hold percocet q6h for pain -Delirium prec; avoid BDZ CVS- -BP stable -pAfib; rate uncontrolled; metoprolol 5mg iv q6h; increase metoprolol to 50mg po q12h and dronedarone; cont eliquis for AC -good uop; cont lasix 60mg iv bid for decomp CHF for 24 more hours, and decrease if CXR better tomorrow -BNP decreased to 400s now from 900s -empiric IV abx for pneumonia -Maintain MAP>65 Resp- -acute on chronic hypoxic resp failure, chronic hypecap -do not suspect acute copd exacc -on NC 5 L -CXR 01/10 with improved infiltrates -IV diuretics -IV abx -sputum with gram+ on smear -Wean Fio2 to keep sat>92% -Bronchodilators PRN, Aspiration prec ID- tmax 100.6, wbc 15-12-13. LA neg -CXR 01/10 improving infiltrates - congestio? infiltrates? -Suspect also CHF exacc -sputum smear with gram+; pending culture -IV cefepime started (day#3), vanco (day#3) GI- -NPO today -GI prophylaxis - ppi Renal- -Cr okay; replete K and Mg and phos -good uop; Cr stable; cont lasix 60mg iv bid -BNP decreasing; CXR improving; cont diuretics; re-eval tomorrow for daily dosing -strict I/O, replete to keep K>4, Mg>2 -ellison as indicated Heme- anemia mild; hg 10-11 -cont eliquis for Afib AC Endo- Maintain BG<200, insulin protocol as needed Musculsk- pressure ulcer prophylaxis, bedrest today Wounds- none Nutrition- NPO today DVT prophylaxis: eliquis, SCDs GI prophylaxis: ppi Central Line: no Arterial Line: no Ellison Cathetor: yes Disposition: Patient requires Critical Care/ICU for acute on chr hypoxic resp failure on NIV, decomp CHF, pneumonia, unresponsive episode Patient Clinical Status: guarded, critical Code Status: full code Total Critical Care time is 60 minutes, excluding procedures/teaching Addy Gonzalez MD [employer] (Electronically Signed)
[2019-01-10 11:46] LABS: ABS Eosinophils 0.1 10^3/ul (0-0.6); ABS Lymphocytes 1.6 10^3/ul (1.0-4.8); ABS Monocytes 1.3 10^3/ul (0-0.8); ABS Neutrophils 8.6 10^3/ul (1.5-7.7); Eosinophil % 1.3 %; Hematocrit 30 % (42-52); Hemoglobin 10.2 g/dL (14.0-18.0); Lymphocyte % 13.6 %; Mean Corpuscular HGB Conc 34 g/dL (31-36); Mean Corpuscular Hemoglobin 32 pg (27-31); Mean Corpuscular Volume 96 fL (80-94); Mean Platelet Volume 7.6 fL (7.4-10.4); Platelet Count 189 10^3/uL (150-450); Red Blood Count 3.17 10^6 /uL (4.18-5.48); Red Cell Distribution Width 14 % (10-15); White Blood Count 11.7 10^3/uL (3.5-10.8)
[2019-01-10 11:57] LABS: ALT 10 U/L (7-52); AST 17 U/L (13-39); Albumin 2.6 g/dL (3.2-5.2); Albumin/Globulin Ratio 1.2 (1-3); Alkaline Phosphatase 55 U/L (34-104); Anion Gap 4 mmol/L (2-11); BUN/Creatinine Ratio 27.3 (8-20); Blood Urea Nitrogen 12 mg/dL (6-24); CO2 Carbon Dioxide 34 mmol/L (22-32); Chloride 104 mmol/L (101-111); Cholesterol 98 mg/dL; EGFR African American 226.7 (>60); EGFR Non-African American 187.4 (>60); Globulin 2.1 g/dL (2-4); Glucose 169 mg/dL (70-100); HDL Cholesterol 33.5 mg/dL; LDL Cholesterol 47 mg/dL; Potassium 2.8 mmol/L (3.5-5.0); Sodium 142 mmol/L (135-145); Total Protein 4.7 g/dL (6.4-8.9); Triglycerides 90 mg/dL
[2019-01-10 12:02] LABS: Activated Partial Thrombo Time 34.6 seconds (26.0-38.0); INR 1.43 (0.82-1.09)
[2019-01-10 12:06] LABS: Troponin I 0.06 ng/mL (<0.04)
[2019-01-10] MEDS: Ondansetron INJ* 2 MG/ML VIAL IV PRN (13:26)
--- NOTE | 2019-01-10 13:51 | CONSULT ---
Palliative / Hospice Consult Ordering Provider: Addy Gonzalez - PCP-Brandi Referal Reason: Goals of care/senns & polyethylene glycol/oxycodone - Subjective Code Status: Full Code-Needs Follow Up Advance Directives Location: No Advance Directives - History or Present Illness History or Present Illness: 78yo male with chronic respiratory failure on 3 liters O2 presents to ER with lethargy and SOB [facility]. PMH is significant for systolic heart failure EF 45%, CAD, h/o CVA, paroxysmal afib on eliquis, BPH, spinal stenosis, AV malformation repaired, depression, neurogenic bladder, h/o comminuted L tibial fx, obstructive sleep apnea and old rib fx. 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 Studies EKG-NSR, CXR-atelecrtasis & cardiomegaly, CXR #2-small bilateral effusions, EKG#2-afib, PVCs, CXR #3 small L basilar infiltrate, Brain CT-neg,H/H 10.2/30, BUN/Cr 12/.44, egfr 187.4, Ca+2-7, troponin .06, BNP 484 and alb 2.6. Pt admitted to ICU for acute on chronic respiratory failure, chronic hypercapnia, bilateral pulmonary congestion and suspected pneumonia. In the last year pt has been admitted 7 times and 2 ER visits. All history is from and medical records, pt was not contributing. Lab Values: Abnormal Lab Results 01/10/19 01/10/19 01/10/19 05:37 05:37 05:37 WBC 13.2 H RBC 3.70 L Hgb 11.7 L Hct 35 L MCV 95 H MCH 32 H MCHC 34 RDW 15 Plt Count 211 MPV 7.6 Neut % (Auto) Lymph % (Auto) Slope % (Auto) Eos % (Auto) Baso % (Auto) Absolute Neuts (auto) Absolute Lymphs (auto) Absolute Monos (auto) Absolute Eos (auto) Absolute Basos (auto) Absolute Nucleated RBC Nucleated RBC % INR (Anticoag Therapy) APTT ABG pH ABG pCO2 ABG pO2 ABG HCO3 ABG O2 Saturation ABG Base Excess Sodium 141 Potassium 3.4 L Chloride 95 L Carbon Dioxide 41 H* Anion Gap 5 BUN 12 Creatinine 0.52 L Est GFR ( Amer) 187.0 Est GFR (Non-Af Amer) 154.5 BUN/Creatinine Ratio 23.1 H Glucose 104 H Calcium 8.7 Phosphorus 1.5 L Magnesium 2.0 Total Bilirubin AST ALT Alkaline Phosphatase Troponin I B-Natriuretic Peptide 484 H Total Protein Albumin Globulin Albumin/Globulin Ratio Triglycerides Cholesterol LDL Cholesterol HDL Cholesterol Vancomycin Trough 23.5 01/10/19 01/10/19 01/10/19 10:45 11:00 11:00 WBC 11.7 H RBC 3.17 L Hgb 10.2 L Hct 30 L MCV 96 H MCH 32 H MCHC 34 RDW 14 Plt Count 189 MPV 7.6 Neut % (Auto) 73.8 Lymph % (Auto) 13.6 Slope % (Auto) 11.0 Eos % (Auto) 1.3 Baso % (Auto) 0.3 Absolute Neuts (auto) 8.6 H Absolute Lymphs (auto) 1.6 Absolute Monos (auto) 1.3 H Absolute Eos (auto) 0.1 Absolute Basos (auto) 0.0 Absolute Nucleated RBC 0.0 Nucleated RBC % 0.0 INR (Anticoag Therapy) 1.43 H APTT 34.6 ABG pH 7.51 H ABG pCO2 56 H ABG pO2 133 H ABG HCO3 39.4 H ABG O2 Saturation 99.5 H ABG Base Excess 18.5 H Sodium Potassium Chloride Carbon Dioxide Anion Gap BUN Creatinine Est GFR ( Amer) Est GFR (Non-Af Amer) BUN/Creatinine Ratio Glucose Calcium Phosphorus Magnesium Total Bilirubin AST ALT Alkaline Phosphatase Troponin I B-Natriuretic Peptide Total Protein Albumin Globulin Albumin/Globulin Ratio Triglycerides Cholesterol LDL Cholesterol HDL Cholesterol Vancomycin Trough 01/10/19 11:00 WBC RBC Hgb Hct MCV MCH MCHC RDW Plt Count MPV Neut % (Auto) Lymph % (Auto) Slope % (Auto) Eos % (Auto) Baso % (Auto) Absolute Neuts (auto) Absolute Lymphs (auto) Absolute Monos (auto) Absolute Eos (auto) Absolute Basos (auto) Absolute Nucleated RBC Nucleated RBC % INR (Anticoag Therapy) APTT ABG pH ABG pCO2 ABG pO2 ABG HCO3 ABG O2 Saturation ABG Base Excess Sodium 142 Potassium 2.8 L Chloride 104 Carbon Dioxide 34 H Anion Gap 4 BUN 12 Creatinine 0.44 L Est GFR ( Amer) 226.7 Est GFR (Non-Af Amer) 187.4 BUN/Creatinine Ratio 27.3 H Glucose 169 H Calcium 7.0 L Phosphorus Magnesium Total Bilirubin 0.40 AST 17 ALT 10 Alkaline Phosphatase 55 Troponin I 0.06 H* B-Natriuretic Peptide Total Protein 4.7 L Albumin 2.6 L Globulin 2.1 Albumin/Globulin Ratio 1.2 Triglycerides 90 Cholesterol 98 LDL Cholesterol 47 HDL Cholesterol 33.5 Vancomycin Trough Laboratory Last Values WBC 11.7 10^3/uL (3.5-10.8) H 01/10/19 11:00 RBC 3.17 10^6 /uL (4.18-5.48) L 01/10/19 11:00 Hgb 10.2 g/dL (14.0-18.0) L 01/10/19 11:00 Hct 30 % (42-52) L 01/10/19 11:00 MCV 96 fL (80-94) H 01/10/19 11:00 MCH 32 pg (27-31) H 01/10/19 11:00 MCHC 34 g/dL (31-36) 01/10/19 11:00 RDW 14 % (10-15) 01/10/19 11:00 Plt Count 189 10^3/uL (150-450) 01/10/19 11:00 MPV 7.6 fL (7.4-10.4) 01/10/19 11:00 Neut % (Auto) 73.8 % 01/10/19 11:00 Lymph % (Auto) 13.6 % 01/10/19 11:00 Slope % (Auto) 11.0 % 01/10/19 11:00 Eos % (Auto) 1.3 % 01/10/19 11:00 Baso % (Auto) 0.3 % 01/10/19 11:00 Absolute Neuts (auto) 8.6 10^3/ul (1.5-7.7) H 01/10/19 11:00 Absolute Lymphs (auto) 1.6 10^3/ul (1.0-4.8) 01/10/19 11:00 Absolute Monos (auto) 1.3 10^3/ul (0-0.8) H 01/10/19 11:00 Absolute Eos (auto) 0.1 10^3/ul (0-0.6) 01/10/19 11:00 Absolute Basos (auto) 0.0 10^3/ul (0-0.2) 01/10/19 11:00 Absolute Nucleated RBC 0.0 10^3/ul 01/10/19 11:00 Nucleated RBC % 0.0 01/10/19 11:00 INR (Anticoag Therapy) 1.43 (0.82-1.09) H 01/10/19 11:00 APTT 34.6 seconds (26.0-38.0) 01/10/19 11:00 Patient Temperature Not Reportable 01/08/19 18:55 ABG pH 7.51 (7.35-7.45) H 01/10/19 10:45 ABG pH (Temp Correct) Not Reportable 01/08/19 18:55 ABG pCO2 56 mmHg (35-45) H 01/10/19 10:45 ABG pCO2 (Temp Corrct Not Reportable 01/08/19 18:55 ABG pO2 133 mmHg (80-100) H 01/10/19 10:45 ABG pO2 (Temp Correct Not Reportable 01/08/19 18:55 ABG HCO3 39.4 mmol/L (19-31) H 01/10/19 10:45 ABG O2 Saturation 99.5 % (94.0-98.0) H 01/10/19 10:45 ABG Base Excess 18.5 mmol/L (-2.0-2.0) H 01/10/19 10:45 Respiration Rate Not Reportable 01/08/19 18:55 O2 Delivery Device vapo 01/08/19 18:55 Ventilator Type Not Reportable 01/08/19 18:55 Vent Mode Not Reportable 01/08/19 18:55 FiO2 70 01/08/19 18:55 Inspiratory Time Not Reportable 01/08/19 18:55 PEEP Not Reportable 01/08/19 18:55 Pressure Support Not Reportable 01/08/19 18:55 Pressure Control Not Reportable 01/08/19 18:55 EPAP Not Reportable 01/08/19 18:55 IPAP Not Reportable 01/08/19 18:55 BiPAP Not Reportable 01/08/19 18:55 Sodium 142 mmol/L (135-145) 01/10/19 11:00 Potassium 2.8 mmol/L (3.5-5.0) L 01/10/19 11:00 Chloride 104 mmol/L (101-111) 01/10/19 11:00 Carbon Dioxide 34 mmol/L (22-32) H 01/10/19 11:00 Anion Gap 4 mmol/L (2-11) 01/10/19 11:00 BUN 12 mg/dL (6-24) 01/10/19 11:00 Creatinine 0.44 mg/dL (0.67-1.17) L 01/10/19 11:00 Est GFR ( Amer) 226.7 (>60) 01/10/19 11:00 Est GFR (Non-Af Amer) 187.4 (>60) 01/10/19 11:00 BUN/Creatinine Ratio 27.3 (8-20) H 01/10/19 11:00 Glucose 169 mg/dL (70-100) H 01/10/19 11:00 Lactic Acid 0.8 mmol/L (0.5-2.0) 01/08/19 15:33 Calcium 7.0 mg/dL (8.6-10.3) L 01/10/19 11:00 Phosphorus 1.5 mg/dL (2.5-5.0) L 01/10/19 05:37 Magnesium 2.0 mg/dL (1.9-2.7) 01/10/19 05:37 Total Bilirubin 0.40 mg/dL (0.2-1.0) 01/10/19 11:00 AST 17 U/L (13-39) 01/10/19 11:00 ALT 10 U/L (7-52) 01/10/19 11:00 Alkaline Phosphatase 55 U/L (34-104) 01/10/19 11:00 Total Creatine Kinase 44 U/L (10-223) 01/08/19 15:33 CK-MB (CK-2) 3.9 ng/mL (0.6-6.3) 01/08/19 15:33 Troponin I 0.06 ng/mL (<0.04) H* 01/10/19 11:00 C-Reactive Protein 121.24 mg/L (<8.01) H 01/08/19 15:33 B-Natriuretic Peptide 484 pg/mL (<=100) H 01/10/19 05:37 Total Protein 4.7 g/dL (6.4-8.9) L 01/10/19 11:00 Albumin 2.6 g/dL (3.2-5.2) L 01/10/19 11:00 Globulin 2.1 g/dL (2-4) 01/10/19 11:00 Albumin/Globulin Ratio 1.2 (1-3) 01/10/19 11:00 Triglycerides 90 mg/dL 01/10/19 11:00 Cholesterol 98 mg/dL 01/10/19 11:00 LDL Cholesterol 47 mg/dL 01/10/19 11:00 HDL Cholesterol 33.5 mg/dL 01/10/19 11:00 Urine Color Yellow 01/08/19 21:00 Urine Appearance Cloudy 01/08/19 21:00 Urine pH 5.0 (5-9) 01/08/19 21:00 Ur Specific [place] 1.013 (1.010-1.030) 01/08/19 21:00 Urine Protein Negative (Negative) 01/08/19 21:00 Urine Ketones Trace (Negative) A 01/08/19 21:00 Urine Blood 1+ (Negative) A 01/08/19 21:00 Urine Nitrate Negative (Negative) 01/08/19 21:00 Urine Bilirubin Negative (Negative) 01/08/19 21:00 Urine Urobilinogen Negative (Negative) 01/08/19 21:00 Ur Leukocyte Esterase 1+ (Negative) A 01/08/19 21:00 Urine WBC (Auto) 1+(6-10/hpf) (Absent) A 01/08/19 21:00 Urine RBC (Auto) Trace(0-2/hpf) (Absent) 01/08/19 21:00 Ur Squamous Epith Cells Present (Absent) A 01/08/19 21:00 Urine Bacteria 3+ (Absent) A 01/08/19 21:00 Hyaline Casts Present (Absent) A 01/08/19 21:00 Urine Glucose Negative (Negative) 01/08/19 21:00 Vancomycin Trough 23.5 mcg/mL 01/10/19 05:37 Influenza A (Rapid) Negative (Negative) 01/08/19 20:40 Influenza B (Rapid) Negative (Negative) 01/08/19 20:40 - Objective Active Medications: Acetaminophen (Tylenol Tab*) 650 mg PO Q4H PRN PRN Reason: MILD PAIN or TEMP > 100.4 Last Admin: 01/10/19 01:36 Dose: 650 mg Albuterol (Ventolin 2.5 Mg/3 Ml Neb.Damaris*) 2.5 mg INH [id number] AWAKE PRN PRN Reason: sob/wheezing Apixaban (Eliquis*) 5 mg PO BID [facility] Last Admin: 01/10/19 08:57 Dose: 5 mg Atorvastatin Calcium (Lipitor*) 10 mg PO DAILY [facility]; Protocol Last Admin: 01/10/19 08:57 Dose: 10 mg Bupropion HCl (Wellbutrin Xl *) 150 mg PO DAILY [facility] Last Admin: 01/10/19 09:06 Dose: 150 mg Citalopram Hydrobromide (Celexa Tab*) 20 mg PO QAM [facility] Last Admin: 01/10/19 08:57 Dose: 20 mg Docusate Sodium (Colace Cap*) 100 mg PO BID [facility] Last Admin: 01/10/19 09:06 Dose: Not Given Dronedarone (Multaq Tab*) 400 mg PO BID WITH MEALS [facility] Last Admin: 01/10/19 08:57 Dose: 400 mg Ferrous Sulfate (Ferrous Sulfate Tab*) 325 mg PO BID [facility] Last Admin: 01/10/19 08:57 Dose: 325 mg Finasteride (Proscar Tab*) 5 mg PO DAILY [facility]; Protocol Last Admin: 01/10/19 08:57 Dose: 5 mg Furosemide (Lasix Iv*) 60 mg IV 0900,1700 [facility] Last Admin: 01/10/19 08:28 Dose: 60 mg Gabapentin (Neurontin Cap(*)) 100 mg PO 0800,1400 [facility] Last Admin: 01/10/19 08:57 Dose: 100 mg Gabapentin (Neurontin Cap(*)) 300 mg PO BEDTIME [facility] Last Admin: 01/09/19 20:31 Dose: 300 mg Cefepime HCl (Maxipime 1 Gm In Dextrose Duplex (*)) 1 gm in 50 mls @ 100 mls/ hr IV Q12H [facility] Last Admin: 01/10/19 08:28 Dose: 100 mls/hr Vancomycin HCl 1,250 mg/ (Sodium Chloride) 250 mls @ 166.667 mls/hr IVPB Q8H [facility] Last Admin: 01/10/19 11:31 Dose: Not Given Potassium Phosphate 15 mmole/ (Sodium Chloride) 255 mls @ 42 mls/hr IVPB ONCE ONE Stop: 01/10/19 18:04 Metoprolol Succinate (Toprol Xl Tab*) 50 mg PO DAILY [facility] Metoprolol Tartrate (Lopressor Iv*) 5 mg IV Q6H PRN PRN Reason: HR>120 Last Admin: 01/10/19 09:33 Dose: 5 mg Mometasone Furoate/Formoterol Fumar (Dulera 200/5 Mdi*) 2 puff INH BID [facility] Last Admin: 01/10/19 07:26 Dose: 2 puff Ondansetron HCl (Zofran Inj*) 4 mg IV Q6H PRN PRN Reason: NAUSEA Last Admin: 01/10/19 13:26 Dose: 4 mg Oxycodone/Acetaminophen (Percocet 5/325 Tab*) 1 tab PO Q6H PRN PRN Reason: PAIN - SEVERE Pantoprazole Sodium (Protonix Tab*) 40 mg PO DAILY [facility] Last Admin: 01/10/19 08:57 Dose: 40 mg Pharmacy Consult (Vancomycin Per Pharmacy*) 1 note FOLLOW UP .VANC PER PHARMACY [facility]; Protocol Pharmacy Profile Note (Vancomycin Trough Check) 1 note FOLLOW UP 1130 ONE Stop: 01/11/19 11:31 Polyethylene Glycol/Electrolytes (Miralax*) 17 gm PO DAILY PRN PRN Reason: CONSTIPATION Polyethylene Glycol/Electrolytes (Miralax*) 17 gm PO DAILY PRN PRN Reason: CONSTIPATION Senna (Senokot 8.6 Mg Tab*) 1 tab PO DAILY PRN PRN Reason: CONSTIPATION Sucralfate (Carafate*) 1 gm PO ACHS [facility] Last Admin: 01/10/19 11:31 Dose: Not Given Tiotropium [place] (Spiriva Respimat 2.5 Mcg) 2 puff INH DAILY [facility] Last Admin: 01/10/19 07:26 Dose: 2 puff Vital Signs: Vital Signs: Temp Pulse Resp BP Pulse Ox 100.2 F 84 30 130/74 98 01/10/19 13:01 01/10/19 13:01 01/10/19 13:01 01/10/19 13:01 01/10/19 13:01 Patient Weight: Weight 105.9 kg Intake and Output: Intake & Output 01/08/19 01/09/19 01/10/19 01/11/19 06:59 06:59 06:59 06:59 Intake Total 643 1691 520 Output Total 2460 3500 1215 Balance -1817 -1809 -695 Weight 112.5 kg 105.9 kg Intake: IV Fluids 270 499 ABX - VANCOMYCIN 265 Cefepine 65 NS (0.9%) 20 169 IVPB 297 657 ABX - VANCOMYCIN 297 595 Cefepine 62 Medicated IV 76 115 Mag Sulfate 76 115 Oral 420 520 Output: Osorio 2460 3500 1215 Other: Date of Last Bowel 01/09/19 Movement # Bowel Movements 1 Estimated Stool Amount Small ADLs: Meal Record Start: 01/08/19 20: 14 Freq: ,,18 Status: Active Protocol: Created 01/08/19 20:14 System (Rec: 01/08/19 20:14 System [id number]-M07) Document 01/09/19 09:00 [id number] (Rec: 01/09/19 09:39 [id number] ICU-C15) Document 01/09/19 13:00 [id number] (Rec: 01/09/19 13:53 [id number] ICU-C25) Document 01/09/19 18:00 [id number] (Rec: 01/09/19 18:55 [id number] ICU-C15) Document 01/10/19 09:15 [id number] (Rec: 01/10/19 09:57 [id number] ICU-C15) Intake and Output Start: 01/08/19 15: 25 Freq: Status: Active Protocol: Created 01/08/19 15:25 System (Rec: 01/08/19 15:25 System [id number]) Intake and Output Start: 01/08/19 20: 14 Freq: Q1HR Status: Active Protocol: Created 01/08/19 20:14 System (Rec: 01/08/19 20:14 System IMG-M07) Document 01/08/19 21:32 [id number] (Rec: 01/08/19 21:32 [id number] IMG-M07) Document 01/08/19 22:00 [id number] (Rec: 01/08/19 23:26 [id number] ICU-M34) Document 01/08/19 23:00 [id number] (Rec: 01/08/19 23:26 [id number] ICU-M34) Document 01/09/19 00:00 [id number] (Rec: 01/09/19 02:25 GBU9215 ICU-M34) Document 01/09/19 01:00 [id number] (Rec: 01/09/19 02:25 BLI1744 ICU-M34) Document 01/09/19 02:00 [id number] (Rec: 01/09/19 02:25 [id number] ICU-M34) Document 01/09/19 03:00 [id number] (Rec: 01/09/19 03:16 [id number] ICU-M34) Document 01/09/19 04:00 IZC9020 (Rec: 01/09/19 05:02 [id number] ICU-M34) Document 01/09/19 05:00 ADF0621 (Rec: 01/09/19 05:02 NED2747 ICU-M34) Document 01/09/19 06:00 HFH5200 (Rec: 01/09/19 06:09 LOH5599 ICU-C12) Document 01/09/19 07:00 TQE7130 (Rec: 01/09/19 09:36 TOC0818 ICU-C15) Document 01/09/19 08:00 HLQ9519 (Rec: 01/09/19 09:36 [id number] ICU-C15) Document 01/09/19 09:00 UAF1321 (Rec: 01/09/19 09:36 OFM1624 ICU-C15) Document 01/09/19 10:00 [id number] (Rec: 01/09/19 10:59 [id number] ICU-C15) Document 01/09/19 11:00 OLQ6987 (Rec: 01/09/19 12:20 [id number] ICU-C15) Document 01/09/19 12:00 JTI1114 (Rec: 01/09/19 12:20 [id number] ICU-C15) Document 01/09/19 12:53 PTH6823 (Rec: 01/09/19 12:53 FJU0076 ICU-C15) Document 01/09/19 13:40 [id number] (Rec: 01/09/19 13:41 PDI5549 ICU-C15) Document 01/09/19 13:53 [id number] (Rec: 01/09/19 13:53 [id number] ICU-C25) Document 01/09/19 14:00 RJE0096 (Rec: 01/09/19 14:45 [id number] IMG-M07) Document 01/09/19 15:00 RIQ8544 (Rec: 01/09/19 16:42 SSQ2445 ICU-C15) Document 01/09/19 16:00 GVJ0332 (Rec: 01/09/19 16:42 [id number] ICU-C15) Document 01/09/19 17:00 TBO1061 (Rec: 01/09/19 17:19 [id number] ICU-C15) Document 01/09/19 18:05 PZD2056 (Rec: 01/09/19 18:05 ORS4323 ICU-C15) Document 01/09/19 19:00 SCA3617 (Rec: 01/09/19 19:22 IEQ8112 ICU-M30) Document 01/09/19 21:00 RBH3761 (Rec: 01/09/19 21:12 OML5911 ICU-C12) Document 01/09/19 22:00 EIP1962 (Rec: 01/09/19 22:16 IYP8219 ICU-C12) Document 01/09/19 23:00 USY0260 (Rec: 01/09/19 23:07 ONF1349 ICU-C12) Document 01/10/19 00:00 [id number] (Rec: 01/10/19 00:09 [id number] IMG-M07) Document 01/10/19 01:00 [id number] (Rec: 01/10/19 01:03 WJH4150 ICU-C12) Document 01/10/19 01:54 [id number] (Rec: 01/10/19 01:54 JRB3125 ICU-C12) Document 01/10/19 04:00 BPG7213 (Rec: 01/10/19 04:18 [id number] ICU-C12) Document 01/10/19 05:40 KOK9154 (Rec: 01/10/19 05:41 HIO5902 ICU-C12) Document 01/10/19 07:00 HYM0331 (Rec: 01/10/19 10:05 OKR3008 ICU-C15) Document 01/10/19 08:00 WII7302 (Rec: 01/10/19 10:05 IXB6833 ICU-C15) Document 01/10/19 09:00 VIW6371 (Rec: 01/10/19 10:05 WNS2018 ICU-C15) Document 01/10/19 10:00 [id number] (Rec: 01/10/19 10:05 WYN3227 ICU-C15) Document 01/10/19 11:00 GTH2554 (Rec: 01/10/19 11:05 MIW5826 IMG-M07) Document 01/10/19 12:00 [id number] (Rec: 01/10/19 12:07 [id number] ICU-C15) Document 01/10/19 13:00 [id number] (Rec: 01/10/19 13:38 [id number] ICU-C15) Head: Normal Eyes: No Scleral Icterus Ears/Nose/Mouth/Throat: NL Teeth, Lips, Gums Neck: NL Appearance and Movements; NL JVP Cardiovascular: NL Sounds; No Murmurs; No JVD Respiratory: Symmetrical Chest Expansion and Respiratory Effort Extremities: No Edema - Assessment Assessment: 78yo male with acute on chronic respiratory failure, chronic hypercapnia, pulmonary congestion and suspected pneumonia - Plan Consult Plan (MU): Palliative Plan: Long discussion with about goals of care. I met pt and his Rekha last visit. They have been for 41yrs and she is a devoted bridge operator. In the last year he has been in the hospital almost every other month and in rehab. He hasn't been home much. At last visit pt's didn't want him intubated again or have a PEG tube, which she reaffirmed at the pt's bedside today. She is still unsure about CPR and wants to talk with other family members. She becomes tearful talking about pt getting sicker. She realizes every time pt is admitted he never returns to his previous baseline. He was home for 6 days after last hospitalization and rehab. If his condition changes she does want to be informed. She doesn't want him to . She felt supported by the automatic spinning lathe setter who was with her when her had an unresponsive moment early today. Updated semiautomatic taper operator and his nurse about her wishes. KPS 40%, PPS 40% - Time On Unit Date of Evaluation: 01/10/19 Hospice Consult Time in: 12:30 Hospice Consult Time Out: 14:00 Hospice Consult Time Total: 90 > 50% of Time Spend In Counseling or Coordinating Care: Yes
--- NOTE | 2019-01-10 15:33 | CONS ---
CONSULTATION REPORT: DATE OF CONSULT: 01/10/19 PATIENT OF: Dr. Gonzalez and Dr. Paz. HISTORY OF PRESENT ILLNESS: This is a 78-year-old man I am asked to see acutely for possible stroke or TIA. He has been in the hospital since 01/08/19 with shortness of breath and increased lethargy. He has been talking and alert up until this morning and at about 10:35, he was noted to not be speaking and I was called for evaluation. Of note, he has atrial fibrillation, on Eliquis. He has a past history of COPD with chronic hypercapnic respiratory failure, hypoxic respiratory failure, systolic congestive heart failure, chronic obstructive sleep apnea, neurogenic bladder, coronary artery disease, history of CVA, history of atrial fibrillation, on chronic Eliquis. He has a left AV malformation repair in his arm. 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 MEDICINES AT HOME: Include: 1. Eliquis 5 mg b.i.d. 2. Dronedarone 400 mg b.i.d. 3. Percocet as needed. 4. Lidocaine patch daily. 5. Celexa 20 mg daily. 6. Albuterol inhaler 2 puffs q.4 hours as needed. 7. Colace 100 mg twice a day. 8. Avodart 0.5 daily. 9. Lasix 40 mg daily. 10. Incruse Ellipta 1 inhalation daily. 11. Oxybutynin 5 mg daily. 12. Omeprazole 20 mg b.i.d. 13. Advair 1 inhaled twice daily. 14. Wellbutrin 150 daily. 15. Carafate 1 g with meals and at bedtime. 16. Gabapentin 100 mg twice a day and 300 mg at bedtime. 17. Metoprolol 25 mg daily. 18. Zofran 8 mg t.i.d. In the hospital, he is also: 1. Lipitor 10 mg daily. 2. Wellbutrin 150 mg daily. 3. Cefepime 1 g q.12 hours. 4. Lasix 60 mg IV twice a day. 5. Vancomycin 1250 q.8 hours. ALLERGIES: He is allergic to IODINE and CONTRAST DYE. FAMILY HISTORY: His father of heart disease. Mother has history of breast cancer and diabetes. He is retired and recently discharged from [facility] to home. He lives with his . Drinks rarely, does not smoke or use drugs. He has an open lesion on his left buttocks. There has been review of systems according to the chart and per has been negative prior to this hospitalization. PHYSICAL EXAM: On exam, temperature 100.4, pulse 85, respirations 30, blood pressure 113/66. I saw him first at 5 to 11:00 and he was alert, but had no speech. He could follow midline commands. Cranial Nerves II through XII are intact. There was no clear facial droop. He moved all extremities with at least 5- /5 power and improved with coaxing. Reflex 1. Toes are mute. Chest showed diffuse rales. Cardiovascular : Irregular rate and rhythm. DIAGNOSTIC STUDIES/LAB DATA: His white count is 11.7 today, hematocrit 30, platelets 189. INR 1.43, normal PTT, pH 7.51, pCO2 56, pO2 133. His BMP was significant for potassium of 2.8, bicarb of 34, calcium of 7, troponin 0.06, LDL was 47. Flu is negative IMPRESSION: His NIH stroke scale at the time of first visit was 7. He was unable to respond to any questions. He was mute at that point. Within the past 2 hours, his speech has returned back to normal and he is speaking in sentences and he is back to his baseline according to his . Dr. Gonzalez and I witnessed him speaking in sentences. His CT scan shows some small vessel ischemic disease with some chronic left basal ganglia calcification, but no acute findings. We were going to get a CTA on him, but we were unable to obtain this because of his contrast allergy. I discussed with Dr. Gonzalez and the that he is not tPA candidate even at the time given his Eliquis, the issue was whether he had a large vessel occlusion. At this point, he has no deficit and so it unlikely that he will have a large vessel occlusion and we would not treat him at this point with clot retrieval given that he has no significant deficits at this time. I discussed with and Dr. Gonzalez that if his clinical situation changes we may revisit that and that if it was decided if he had a large vessel occlusion he will be transferred out for procedure, but this is quite unlikely at this point. It is very possible though this represented a TIA , possibly embolic basis. We will be getting a carotid Doppler at this point to screen his carotids; most likely, this is a transient ischemic attack secondary to his atrial fibrillation [id number]/[facility] #: [id number] [id number]
[2019-01-10] MEDS: Aspirin 81 mg CHEW TAB* 81 MG TAB.CHEW PO SCH (18:39)
[2019-01-10] MEDS: oxyCODONE/Acetamin 5/325 MG* TAB PO PRN (19:12)
[2019-01-10] MEDS: Gabapentin CAP(*) 300 MG PO SCH (20:51)
[2019-01-11] MEDS: Mometasone/Formoter 200/5 MDI INH SCH ×3 (03:00→19:01)
[2019-01-11] MEDS: Vancomycin(*) 1,250 MG in NS 0.9% 250 ML* 250 ML IVPB SCH (03:52)
[2019-01-11 05:19] LABS: Hematocrit 33 % (42-52); Mean Corpuscular HGB Conc 33 g/dL (31-36); Mean Corpuscular Hemoglobin 32 pg (27-31); Mean Corpuscular Volume 95 fL (80-94); Mean Platelet Volume 7.3 fL (7.4-10.4); Platelet Count 197 10^3/uL (150-450); Red Blood Count 3.49 10^6 /uL (4.18-5.48); Red Cell Distribution Width 15 % (10-15); White Blood Count 11.2 10^3/uL (3.5-10.8)
[2019-01-11 05:33] LABS: BUN/Creatinine Ratio 21.8 (8-20); Calcium 8.3 mg/dL (8.6-10.3); EGFR African American 117.1 (>60); EGFR Non-African American 96.8 (>60); Magnesium 1.7 mg/dL (1.9-2.7); Phosphorus 4.4 mg/dL (2.5-5.0); Potassium 3.5 mmol/L (3.5-5.0)
[2019-01-11] MEDS: SPIRIVA Respimat* (tiotropium) 2.5 mcg/inh Inhaler INH SCH (07:15)
[2019-01-11] MEDS ORDERED: Magnesium Sulfate 2 GM IV* 2 GM/50 ML BAG IVPB ONE (08:09)
[2019-01-11] MEDS: Gabapentin CAP(*) 100 MG PO SCH ×2 (08:30→14:06)
[2019-01-11] MEDS: Sucralfate TAB* 1 GM PO SCH ×4 (08:30→20:54)
[2019-01-11] MEDS: Apixaban* 5 MG TAB PO SCH ×2 (08:30→20:55)
[2019-01-11] MEDS: Pantoprazole TAB * 40 MG TAB PO SCH (08:30)
[2019-01-11] MEDS: BuPROPion XL* 150 MG TAB.XL PO SCH (08:30)
[2019-01-11] MEDS: Metoprolol Succinate XL TAB* 25 MG PO SCH (08:30)
[2019-01-11] MEDS: Atorvastatin* 40 MG TAB PO SCH (08:30)
[2019-01-11] MEDS: Citalopram TAB* 20 MG PO SCH (08:31)
[2019-01-11] MEDS: Finasteride TAB* 5 MG PO SCH (08:31)
[2019-01-11] MEDS: Aspirin 81 mg CHEW TAB* 81 MG TAB.CHEW PO SCH (08:31)
[2019-01-11] MEDS: Dronedarone TAB* 400 MG PO SCH ×2 (08:31→17:00)
[2019-01-11] MEDS: Docusate CAP* 100 MG PO SCH ×2 (08:31→20:54)
[2019-01-11] MEDS: Ferrous Sulfate TAB* 325 MG PO SCH ×2 (08:31→20:55)
[2019-01-11] MEDS: Cefepime 1 GM in Dextrose(*) 1 GM/50 ML q12h (Duplex) IV SCH (08:31)
[2019-01-11] MEDS: Furosemide IV* 10 MG/ML VIAL (40 MG) IV SCH ×2 (09:06→17:00)
--- NOTE | 2019-01-11 10:22 | PN ---
Progress Note - Progress Note Date of Service: 01/11/19 - Pulm/cc note Note: Pt seen and examined at bedside. Pt more alert today, answers questions appropriately. Appears weak and would fall asleep during conversation. Has tolerated BiPAP last night. Was transitioned to nasal cannula this am. Tmax 100.9 Active Medications Generic Name Dose Route Start Last Admin Trade Name Freq PRN Reason Stop Dose Admin Acetaminophen 650 mg 01/08/19 18:16 01/10/19 01:36 Tylenol Tab* PO 650 mg Q4H PRN Administration MILD PAIN or TEMP > 100.4 Albuterol 2.5 mg 01/08/19 18:16 Ventolin 2.5 Mg/3 Ml Neb.Damaris* INH [id number] AWAKE PRN sob/wheezing Apixaban 5 mg 01/08/19 21:00 01/11/19 08:30 Eliquis* PO 5 mg BID ARTI Administration Aspirin 81 mg 01/10/19 17:00 01/11/19 08:31 Aspirin 81 Mg Chew Tab* PO 81 mg DAILY ARTI Administration Atorvastatin Calcium 40 mg 01/11/19 09:00 01/11/19 08:30 Lipitor* PO 40 mg DAILY ARTI Administration Protocol Bupropion HCl 150 mg 01/09/19 09:00 01/11/19 08:30 Wellbutrin Xl * PO 150 mg DAILY ARTI Administration Citalopram Hydrobromide 20 mg 01/09/19 09:00 01/11/19 08:31 Celexa Tab* PO 20 mg QAM ARTI Administration Docusate Sodium 100 mg 01/09/19 21:00 01/11/19 08:31 Colace Cap* PO 100 mg BID ARTI Administration Dronedarone 400 mg 01/09/19 08:00 01/11/19 08:31 Multaq Tab* PO 400 mg BID WITH MEALS ARTI Administration Ferrous Sulfate 325 mg 01/08/19 21:00 01/11/19 08:31 Ferrous Sulfate Tab* PO 325 mg BID ARTI Administration Finasteride 5 mg 01/09/19 09:00 01/11/19 08:31 Proscar Tab* PO 5 mg DAILY ARTI Administration Protocol Furosemide 60 mg 01/09/19 17:00 01/11/19 09:06 Lasix Iv* IV 60 mg 0900,1700 ARTI Administration Gabapentin 100 mg 01/09/19 08:00 01/11/19 08:30 Neurontin Cap(*) PO 100 mg 0800,1400 ARTI Administration Gabapentin 300 mg 01/08/19 21:00 01/10/19 20:51 Neurontin Cap(*) PO 300 mg BEDTIME ARTI Administration Cefepime HCl 1 gm in 50 mls @ 100 mls/hr 01/11/19 10:00 Maxipime 1 Gm In Dextrose Duplex (*) IV Q12H ARTI Metoprolol Succinate 50 mg 01/11/19 09:00 01/11/19 08:30 Toprol Xl Tab* PO 50 mg DAILY ARTI Administration Metoprolol Tartrate 5 mg 01/10/19 09:24 01/10/19 09:33 Lopressor Iv* IV 5 mg Q6H PRN Administration HR>120 Mometasone Furoate/Formoterol Fumar 2 puff 01/08/19 21:00 01/11/19 07:16 Dulera 200/5 Mdi* INH 2 puff BID ARTI Administration Ondansetron HCl 4 mg 01/10/19 11:17 01/10/19 13:26 Zofran Inj* IV 4 mg Q6H PRN Administration NAUSEA Oxycodone/Acetaminophen 1 tab 01/09/19 09:43 01/10/19 19:12 Percocet 5/325 Tab* PO 1 tab Q6H PRN Administration PAIN - SEVERE Pantoprazole Sodium 40 mg 01/09/19 09:00 01/11/19 08:30 Protonix Tab* PO 40 mg DAILY ARTI Administration Pharmacy Profile Note 1 note 01/11/19 11:30 Vancomycin Trough Check FOLLOW UP 01/11/19 11:31 1130 ONE Polyethylene Glycol/Electrolytes 17 gm 01/08/19 18:21 Miralax* PO DAILY PRN CONSTIPATION Polyethylene Glycol/Electrolytes 17 gm 01/09/19 11:59 Miralax* PO DAILY PRN CONSTIPATION Senna 1 tab 01/08/19 18:21 Senokot 8.6 Mg Tab* PO DAILY PRN CONSTIPATION Sucralfate 1 gm 01/08/19 21:00 01/11/19 08:30 Carafate* PO 1 gm ACHS ARTI Administration Tiotropium [place] 2 puff 01/09/19 09:00 01/11/19 07:15 Spiriva Respimat 2.5 Mcg INH 2 puff DAILY ARTI Administration Vital Signs Temp Pulse Resp BP Pulse Ox 100.0 F 100 29 112/59 96 01/11/19 08:01 01/11/19 08:01 01/11/19 08:01 01/11/19 08:01 01/11/19 08:01 O/E: Pt in NAD, appears weak and dozes off during conversation HEENT: PERRLA Lungs: Dimnished air entry, no wheeze CVS: S1, S2+ Abd: Soft, BS+ Ext: Normal ROM Skin: No rash Neuro: Alert, awake, answers questions appropriately Laboratory Results - last 24 hr 01/10/19 01/10/19 01/10/19 10:45 10:46 11:00 WBC 11.7 H RBC 3.17 L Hgb 10.2 L Hct 30 L MCV 96 H MCH 32 H MCHC 34 RDW 14 Plt Count 189 MPV 7.6 Neut % (Auto) 73.8 Lymph % (Auto) 13.6 Love % (Auto) 11.0 Eos % (Auto) 1.3 Baso % (Auto) 0.3 Absolute Neuts (auto) 8.6 H Absolute Lymphs (auto) 1.6 Absolute Monos (auto) 1.3 H Absolute Eos (auto) 0.1 Absolute Basos (auto) 0.0 Absolute Nucleated RBC 0.0 Nucleated RBC % 0.0 INR (Anticoag Therapy) APTT ABG pH 7.51 H ABG pCO2 56 H ABG pO2 133 H ABG HCO3 39.4 H ABG O2 Saturation 99.5 H ABG Base Excess 18.5 H Sodium Potassium Chloride Carbon Dioxide Anion Gap BUN Creatinine Est GFR ( Amer) Est GFR (Non-Af Amer) BUN/Creatinine Ratio Glucose POC Glucose (mg/dL) 199 H Calcium Phosphorus Magnesium Total Bilirubin AST ALT Alkaline Phosphatase Troponin I Total Protein Albumin Globulin Albumin/Globulin Ratio Triglycerides Cholesterol LDL Cholesterol HDL Cholesterol 01/10/19 01/10/19 01/11/19 11:00 11:00 05:04 WBC RBC Hgb Hct MCV MCH MCHC RDW Plt Count MPV Neut % (Auto) Lymph % (Auto) Love % (Auto) Eos % (Auto) Baso % (Auto) Absolute Neuts (auto) Absolute Lymphs (auto) Absolute Monos (auto) Absolute Eos (auto) Absolute Basos (auto) Absolute Nucleated RBC Nucleated RBC % INR (Anticoag Therapy) 1.43 H APTT 34.6 ABG pH ABG pCO2 ABG pO2 ABG HCO3 ABG O2 Saturation ABG Base Excess Sodium 142 142 Potassium 2.8 L 3.5 Chloride 104 97 L Carbon Dioxide 34 H 38 H Anion Gap 4 7 BUN 12 17 Creatinine 0.44 L 0.78 Est GFR ( Amer) 226.7 117.1 Est GFR (Non-Af Amer) 187.4 96.8 BUN/Creatinine Ratio 27.3 H 21.8 H Glucose 169 H 92 POC Glucose (mg/dL) Calcium 7.0 L 8.3 L Phosphorus 4.4 Magnesium 1.7 L Total Bilirubin 0.40 AST 17 ALT 10 Alkaline Phosphatase 55 Troponin I 0.06 H* Total Protein 4.7 L Albumin 2.6 L Globulin 2.1 Albumin/Globulin Ratio 1.2 Triglycerides 90 Cholesterol 98 LDL Cholesterol 47 HDL Cholesterol 33.5 01/11/19 05:04 WBC 11.2 H RBC 3.49 L Hgb 11.0 L Hct 33 L MCV 95 H MCH 32 H MCHC 33 RDW 15 Plt Count 197 MPV 7.3 L Neut % (Auto) Lymph % (Auto) Love % (Auto) Eos % (Auto) Baso % (Auto) Absolute Neuts (auto) Absolute Lymphs (auto) Absolute Monos (auto) Absolute Eos (auto) Absolute Basos (auto) Absolute Nucleated RBC Nucleated RBC % INR (Anticoag Therapy) APTT ABG pH ABG pCO2 ABG pO2 ABG HCO3 ABG O2 Saturation ABG Base Excess Sodium Potassium Chloride Carbon Dioxide Anion Gap BUN Creatinine Est GFR ( Amer) Est GFR (Non-Af Amer) BUN/Creatinine Ratio Glucose POC Glucose (mg/dL) Calcium Phosphorus Magnesium Total Bilirubin AST ALT Alkaline Phosphatase Troponin I Total Protein Albumin Globulin Albumin/Globulin Ratio Triglycerides Cholesterol LDL Cholesterol HDL Cholesterol CXR 01/09- Bibasilar air space opacities and pleural effusions. CT brain: No acute findings A/P: 78y M w/pmhx of COPD, home O2 at 3L, pAfib on AC, Chronic Mild LV systolic dysfunction, sleep apnea, BPH, home self catheterization, depression; recurrent hospitalizations recently, recent admission to [facility] 10/2018 for respiratory failure, bilateral pneumonia, intubated, discharged to Rehab, was d/matilde from rehab abd returns in 2 days to ER 01/08 for respiratory distress, fever, required NIV and was admitted to ICU. CXR revealed bilateral interstitial and some basal changes, started on IV abx for PNA, was also given Lasix for pulmonary vascular congestion from acute sys CHF. -Acute on chronic hypoxic respiratory failure -Chronic hypercapneic respiratory failure -Bilateral pulmonary congestion -Suspected pneumonia -Acute decompensated LV systolic heart failure, stable -Encephalopathy, improving -COPD -Sleep apnea -pAfib Pt had acute mental status changes yesterday- was unresponsive with stable vital signs, code dean was called- TIA vs metabolic encephalopathy. Mental status improved subsequently. Pt alert, awake today however with some lethargy likely sec to septic encephalopathy. Overall improved today. Neuro consult appreciated. C/w citalopram, buproprion, gabapentin for pain, hold percocet. Delirium prec; will avoid BDZ, c/w neurochecks - H/o pAfib; rate uncontrolled; metoprolol 5mg iv q6h; c/w metoprolol 50mg po q12h, dronedarone, eliquis for AC - Resp status stable on 3L O2. Is compensated, now on alkalotic side. BiPAP at night. c/w O2 NC during day. Will not need Acetazolomide at this time. No acute COPD exacerbation. Bronchodilators PRN, Aspiration prec. H/o sleep apnea, BiPAP at night -Sputum cxr showed streptomonas susceptible to Levaquin. Will not change as Levaquin can cause delirium in elderly. Leucocytosis is improving even though he is still spiking temperature. Will d/c vancomycin as he has received for 4 days. Will c/w Cefepime for now and repeat septic w/u. If mental status changes continue or pt continues to spike, will consider LP -Good UO; cont lasix 60mg iv bid for decomp CHF today and reassess, will repeat CXR tomorrow. I/O, negative fluid balance. Repleted magnesium. - Will start feeds today and advance as tolerated. Feed with assistance. -Anemia mild; hg 10-11, stable. Cont eliquis for Afib AC - Pressure ulcer prophylaxis, OOB to chair as tolerated -GI prophylaxis - ppi DVT prophylaxis: eliquis, SCDs Osorio Catheter: yes, will reassess need and remove when appropriate Patient requires Critical Care/ICU for acute on chr hypoxic resp failure, encephalopathy Code Status: full code
[2019-01-11] MEDS: oxyCODONE/Acetamin 5/325 MG* TAB PO PRN (10:31)
[2019-01-11] MEDS: TRIMETH IVPB SCH ×2 (11:30→19:51)
[2019-01-11] MEDS: SULFAMETHOXAZOLE IVPB SCH ×2 (11:30→19:51)
[2019-01-11] MEDS ORDERED: Vancomycin Trough Check NOTE FOLLOW UP ONE (11:30)
[2019-01-11] MEDS: D5W IVPB SCH ×2 (11:30→19:51)
[2019-01-11 12:06] LABS: Urine Appearance Cloudy; Urine Bacteria Absent (Absent); Urine Bilirubin Negative (Negative); Urine Blood 1+ (Negative); Urine Color Yellow; Urine Glucose Negative (Negative); Urine Ketones Negative (Negative); Urine Nitrite Negative (Negative); Urine Protein Negative (Negative); Urine Red Blood Cell Trace(0-2/hpf) (Absent); Urine Specific Gravity 1.008 (1.010-1.030); Urine Urobilinogen Negative (Negative); Urine White Blood Cell 1+(6-10/hpf) (Absent)
[2019-01-11] MEDS: Acetaminophen TAB* 325 MG PO PRN (15:21)
[2019-01-11] MEDS: Ondansetron INJ* 2 MG/ML VIAL IV PRN (15:21)
[2019-01-11] MEDS: Gabapentin CAP(*) 300 MG PO SCH (20:54)
[2019-01-11] MEDS ORDERED: Cefepime 1 GM in Dextrose(*) 1 GM/50 ML BAG IV SCH (21:00)
[2019-01-12] MEDS: SULFAMETHOXAZOLE IVPB SCH ×3 (04:20→20:20)
[2019-01-12] MEDS: D5W IVPB SCH ×3 (04:20→20:20)
[2019-01-12] MEDS: TRIMETH IVPB SCH ×3 (04:20→20:20)
[2019-01-12 05:08] LABS: Hematocrit 34 % (42-52); Hemoglobin 11.1 g/dL (14.0-18.0); Mean Corpuscular HGB Conc 33 g/dL (31-36); Mean Corpuscular Hemoglobin 32 pg (27-31); Mean Corpuscular Volume 96 fL (80-94); Mean Platelet Volume 7.7 fL (7.4-10.4); Platelet Count 185 10^3/uL (150-450); Red Blood Count 3.53 10^6 /uL (4.18-5.48); Red Cell Distribution Width 15 % (10-15); White Blood Count 16.6 10^3/uL (3.5-10.8)
[2019-01-12 05:19] LABS: BUN/Creatinine Ratio 17.9 (8-20); Calcium 8.1 mg/dL (8.6-10.3); EGFR African American 57.3 (>60); EGFR Non-African American 47.3 (>60); Magnesium 2.2 mg/dL (1.9-2.7); Phosphorus 4.1 mg/dL (2.5-5.0); Potassium 3.6 mmol/L (3.5-5.0)
[2019-01-12] MEDS: SPIRIVA Respimat* (tiotropium) 2.5 mcg/inh Inhaler INH SCH (07:36)
[2019-01-12] MEDS: Mometasone/Formoter 200/5 MDI INH SCH ×2 (07:37→18:55)
[2019-01-12] MEDS: Albuterol 2.5 MG/3 ML NEB.SOL* (0.083%) INH PRN (07:43)
[2019-01-12] MEDS ORDERED: NS 0.9% 500 ML* 500 ML IV ONE (08:06)
[2019-01-12] MEDS: Hydrocortisone INJ* 100 MG VIAL IV SCH ×2 (08:33→17:33)
[2019-01-12] MEDS: Metoprolol Succinate XL TAB* 25 MG PO SCH (11:04)
[2019-01-12] MEDS: Gabapentin CAP(*) 100 MG PO SCH ×2 (11:04→14:16)
[2019-01-12] MEDS: Docusate CAP* 100 MG PO SCH ×2 (11:04→20:30)
[2019-01-12] MEDS: Finasteride TAB* 5 MG PO SCH (11:05)
[2019-01-12] MEDS: Apixaban* 5 MG TAB PO SCH ×2 (11:05→20:30)
[2019-01-12] MEDS: Atorvastatin* 40 MG TAB PO SCH (11:05)
[2019-01-12] MEDS: Sucralfate TAB* 1 GM PO SCH ×4 (11:05→20:30)
[2019-01-12] MEDS: Citalopram TAB* 20 MG PO SCH (11:05)
[2019-01-12] MEDS: Ferrous Sulfate TAB* 325 MG PO SCH ×2 (11:05→20:30)
[2019-01-12] MEDS: Pantoprazole TAB * 40 MG TAB PO SCH (11:06)
[2019-01-12] MEDS: Aspirin 81 mg CHEW TAB* 81 MG TAB.CHEW PO SCH (11:06)
[2019-01-12] MEDS: Furosemide IV* 10 MG/ML VIAL (40 MG) IV SCH ×2 (11:06→17:33)
[2019-01-12] MEDS: BuPROPion XL* 150 MG TAB.XL PO SCH (11:08)
[2019-01-12] MEDS: Dronedarone TAB* 400 MG PO SCH ×2 (11:08→18:31)
--- NOTE | 2019-01-12 12:26 | PN ---
Progress Note - Progress Note Date of Service: 01/12/19 - Pulm/cc note Note: Pt seen and examined at bedside. Pt was lethargic this am, mental status improved. He has waxing and waning episodes. He was hypotensive this am, received 50cc fluid bolus, BP responded. He continues to have low grade fever Active Medications Generic Name Dose Route Start Last Admin Trade Name Freq PRN Reason Stop Dose Admin Acetaminophen 650 mg 01/08/19 18:16 01/11/19 15:21 Tylenol Tab* PO 650 mg Q4H PRN Administration MILD PAIN or TEMP > 100.4 Albuterol 2.5 mg 01/08/19 18:16 01/12/19 07:43 Ventolin 2.5 Mg/3 Ml Neb.Damaris* INH 2.5 mg [id number] AWAKE PRN Administration sob/wheezing Apixaban 5 mg 01/08/19 21:00 01/12/19 11:05 Eliquis* PO 5 mg BID ARTI Administration Aspirin 81 mg 01/10/19 17:00 01/12/19 11:06 Aspirin 81 Mg Chew Tab* PO 81 mg DAILY ARTI Administration Atorvastatin Calcium 40 mg 01/11/19 09:00 01/12/19 11:05 Lipitor* PO 40 mg DAILY ARTI Administration Protocol Bupropion HCl 150 mg 01/09/19 09:00 01/12/19 11:08 Wellbutrin Xl * PO 150 mg DAILY ARTI Administration Citalopram Hydrobromide 20 mg 01/09/19 09:00 01/12/19 11:05 Celexa Tab* PO 20 mg QAM ARTI Administration Docusate Sodium 100 mg 01/09/19 21:00 01/12/19 11:04 Colace Cap* PO 100 mg BID ARTI Administration Dronedarone 400 mg 01/09/19 08:00 01/12/19 11:08 Multaq Tab* PO 400 mg BID WITH MEALS ARTI Administration Ferrous Sulfate 325 mg 01/08/19 21:00 01/12/19 11:05 Ferrous Sulfate Tab* PO 325 mg BID ARTI Administration Finasteride 5 mg 01/09/19 09:00 01/12/19 11:05 Proscar Tab* PO 5 mg DAILY ARTI Administration Protocol Furosemide 60 mg 01/09/19 17:00 01/12/19 11:06 Lasix Iv* IV 60 mg 0900,1700 ARTI Administration Gabapentin 100 mg 01/09/19 08:00 01/12/19 11:04 Neurontin Cap(*) PO 100 mg 0800,1400 ARTI Administration Gabapentin 300 mg 01/08/19 21:00 01/11/19 20:54 Neurontin Cap(*) PO 300 mg BEDTIME ARTI Administration Hydrocortisone Sodium Succinate 50 mg 01/12/19 09:00 01/12/19 08:33 Solu-Cortef* IV 50 mg Q8H ARTI Administration Trimethoprim/Sulfamethoxazole 528.75 mls @ 264.375 mls/hr 01/11/19 12:00 04:20 460 mg/ Dextrose IVPB 264.375 mls/hr Q8H ARTI Administration Metoprolol Succinate 50 mg 01/11/19 09:00 01/12/19 11:04 Toprol Xl Tab* PO 50 mg DAILY ARTI Administration Metoprolol Tartrate 5 mg 01/10/19 09:24 01/10/19 09:33 Lopressor Iv* IV 5 mg Q6H PRN Administration HR>120 Mometasone Furoate/Formoterol Fumar 2 puff 01/08/19 21:00 01/12/19 07:37 Dulera 200/5 Mdi* INH Not Given BID ARTI Ondansetron HCl 4 mg 01/10/19 11:17 01/11/19 15:21 Zofran Inj* IV 4 mg Q6H PRN Administration NAUSEA Oxycodone/Acetaminophen 1 tab 01/09/19 09:43 01/11/19 10:31 Percocet 5/325 Tab* PO 1 tab Q6H PRN Administration PAIN - SEVERE Pantoprazole Sodium 40 mg 01/09/19 09:00 01/12/19 11:06 Protonix Tab* PO 40 mg DAILY ARTI Administration Polyethylene Glycol/Electrolytes 17 gm 01/08/19 18:21 Miralax* PO DAILY PRN CONSTIPATION Polyethylene Glycol/Electrolytes 17 gm 01/09/19 11:59 Miralax* PO DAILY PRN CONSTIPATION Senna 1 tab 01/08/19 18:21 Senokot 8.6 Mg Tab* PO DAILY PRN CONSTIPATION Sucralfate 1 gm 01/08/19 21:00 01/12/19 11:07 Carafate* PO Not Given ACHS ARTI Tiotropium [place] 2 puff 01/09/19 09:00 01/12/19 07:36 Spiriva Respimat 2.5 Mcg INH Not Given DAILY ARTI Vital Signs Temp Pulse Resp BP Pulse Ox 100.6 F 89 27 112/69 93 01/12/19 12:01 01/12/19 12:01 01/12/19 12:01 01/12/19 10:30 01/12/19 12:01 O/E: Pt in NAD HEENT: PERRLA, no JVD Lungs: Diminished air entry b/l , scattered wheeze+ CVS: S1, S2+, regular Abd: Soft, BS+ Ext: Normal ROM Neuro: Waxing nad waning mental status Skin: No rash Laboratory Results - last 24 hr 01/12/19 01/12/19 04:42 04:42 WBC 16.6 H RBC 3.53 L Hgb 11.1 L Hct 34 L MCV 96 H MCH 32 H MCHC 33 RDW 15 Plt Count 185 MPV 7.7 Sodium 137 Potassium 3.6 Chloride 94 L Carbon Dioxide 37 H Anion Gap 6 BUN 26 H Creatinine 1.45 H Est GFR ( Amer) 57.3 Est GFR (Non-Af Amer) 47.3 BUN/Creatinine Ratio 17.9 Glucose 106 H Calcium 8.1 L Phosphorus 4.1 Magnesium 2.2 CXR 01/09- Bibasilar air space opacities and pleural effusions, improved on right. CT brain: No acute findings A/P: 78y M w/pmhx of COPD, home O2 at 3L, pAfib on AC, Chronic Mild LV systolic dysfunction, sleep apnea, BPH, home self catheterization, depression; recurrent hospitalizations recently, recent admission to [facility] 10/2018 for respiratory failure, bilateral pneumonia, intubated, discharged to Rehab, was d/matilde from rehab abd returns in 2 days to ER 01/08 for respiratory distress, fever, required NIV and was admitted to ICU. CXR revealed bilateral interstitial and some basal changes, started on IV abx for PNA, was also given Lasix for pulmonary vascular congestion from acute sys CHF. -Acute on chronic hypoxic respiratory failure -Chronic hypercapneic respiratory failure -Bilateral pulmonary congestion -Suspected pneumonia -Acute decompensated LV systolic heart failure, stable -Encephalopathy, improving -COPD -Sleep apnea -pAfib Pt had acute mental status changes that wax and wane- code dean was called 10/ 11- TIA vs metabolic encephalopathy. Dointg well currently after another episode this am Neuro consult appreciated. C/w citalopram, buproprion, gabapentin for pain, hold percocet. Delirium prec; will avoid BDZ, c/w neurochecks - H/o pAfib; rate uncontrolled; metoprolol 5mg iv q6h; c/w metoprolol 50mg po q12h, dronedarone, eliquis for AC. Hypotension after starting BiPAP, responded to fluid bolus. Overall positive fluid balance, will administer Lasix - Resp status stable on 3L O2. Is compensated, now on alkalotic side. BiPAP at night and prn during daytime. c/w O2 NC during day. Will not need Acetazolomide at this time. Slight wheeze today. Bronchodilators PRN, Aspiration prec. H/o sleep apnea, BiPAP at night -Sputum cxr showed streptomonas susceptible to Levaquin and Bactrim. Changed to Bactrim, has low grade fever. UA repeated, positive for WBC, Ur cx negative to date. Leucocytosis is improving even though he is still spiking temperature. d/ c ed vancomycin as he has received for 4 days. Cefepime was d/matilde. Bactrim day# 2. If mental status changes continue or pt continues to spike, will consider LP -Good UO; cont lasix 40mg iv bid instead of 60mg for decomp CHF given hypotension, will repeat CXR tomorrow. I/O, negative fluid balance. Repleted magnesium. - c/w feeds and advance as tolerated. Feed with assistance. Hold for signs of AMS -Anemia mild; hg 10-11, stable. Cont eliquis for Afib AC - Pressure ulcer prophylaxis, OOB to chair as tolerated -GI prophylaxis - ppi DVT prophylaxis: eliquis, SCDs Osorio Catheter: yes, will reassess need and remove when appropriate Patient requires Critical Care/ICU for acute on chr hypoxic resp failure, encephalopathy Code Status: full code Had extensive discussion with pts , explained significant deconditioning and multiple comorbidities with anticipated prolonged stay in hospital. would like to have agressive measures continued including full code status.
[2019-01-12] MEDS: Gabapentin CAP(*) 300 MG PO SCH (20:30)
[2019-01-12] MEDS: oxyCODONE/Acetamin 5/325 MG* TAB PO PRN (23:04)
[2019-01-13] MEDS: Hydrocortisone INJ* 100 MG VIAL IV SCH ×2 (00:57→08:13)
[2019-01-13] MEDS: Acetaminophen TAB* 325 MG PO PRN (02:30)
[2019-01-13] MEDS: TRIMETH IVPB SCH ×3 (03:39→23:23)
[2019-01-13] MEDS: D5W IVPB SCH ×3 (03:39→23:23)
[2019-01-13] MEDS: SULFAMETHOXAZOLE IVPB SCH ×3 (03:39→23:23)
[2019-01-13] MEDS: oxyCODONE/Acetamin 5/325 MG* TAB PO PRN ×4 (05:08→21:10)
[2019-01-13] MEDS: Mometasone/Formoter 200/5 MDI INH SCH ×3 (07:12→20:37)
[2019-01-13] MEDS: SPIRIVA Respimat* (tiotropium) 2.5 mcg/inh Inhaler INH SCH (07:53)
[2019-01-13] MEDS: Albuterol 2.5 MG/3 ML NEB.SOL* (0.083%) INH PRN (07:53)
[2019-01-13] MEDS: Dronedarone TAB* 400 MG PO SCH ×2 (08:12→17:16)
[2019-01-13] MEDS: BuPROPion XL* 150 MG TAB.XL PO SCH (08:12)
[2019-01-13] MEDS: Atorvastatin* 40 MG TAB PO SCH (08:12)
[2019-01-13] MEDS: Gabapentin CAP(*) 100 MG PO SCH ×2 (08:13→15:19)
[2019-01-13] MEDS: Citalopram TAB* 20 MG PO SCH (08:13)
[2019-01-13] MEDS: Docusate CAP* 100 MG PO SCH ×2 (08:13→21:09)
[2019-01-13] MEDS: Ferrous Sulfate TAB* 325 MG PO SCH ×2 (08:13→21:12)
[2019-01-13] MEDS: Pantoprazole TAB * 40 MG TAB PO SCH (08:13)
[2019-01-13] MEDS: Apixaban* 5 MG TAB PO SCH ×2 (08:13→21:12)
[2019-01-13] MEDS: Sucralfate TAB* 1 GM PO SCH ×4 (08:13→21:12)
[2019-01-13] MEDS: Aspirin 81 mg CHEW TAB* 81 MG TAB.CHEW PO SCH (08:13)
[2019-01-13] MEDS: Finasteride TAB* 5 MG PO SCH (08:13)
[2019-01-13] MEDS: Furosemide IV* 10 MG/ML VIAL (40 MG) IV SCH ×2 (08:14→17:13)
[2019-01-13] MEDS: Metoprolol Succinate XL TAB* 25 MG PO SCH (10:01)
--- NOTE | 2019-01-13 12:27 | PN ---
Date of Service: 01/13/19 Critical Care Services: AO times 3. sitting up in bed. NAD Did have episode of aspiration in AM Vital Signs: Temp Pulse Resp BP SpO2 FiO2 99.3 F 86 22 113/49 90 45 01/13/19 11:01 01/13/19 11:01 01/13/19 11:01 01/13/19 11:01 01/13/19 11:01 01/12 20:00 Physical Exam: Gen: AO times 3 HEENT: EOMI Lungs: CTA B/L Cardiac: RRR Abdomen:+ BS's. Soft, NTP. No rebound or guarding Extremities: No TRACIE Fluid Balance (Past 24 Hours): I= O= Net Intake & Output 01/11/19 01/12/19 01/13/19 01/14/19 06:59 06:59 06:59 06:59 Intake Total 1819 2926 2328 Output Total 2081 1610 1520 595 Balance -262 1316 808 -595 Weight 236 lb 15.951 oz 245 lb 13.047 oz 244 lb 3.088 oz Intake: IV Fluids 596 160 543 BACTRIM 85 NS (0.9%) 596 75 543 IVPB 703 871 560 ABX - VANCOMYCIN 507 BACTRIM 811 560 Cefepine 65 60 NS (0.9%) 131 Medicated IV 60 Mag Sulfate 60 Oral 520 1835 960 Osorio Irrigate Amount 265 Output: Osorio 2080 1610 1520 595 Other: Estimated Stool Amount Large Impression: COPD on home 02 chronic JAVIER on AC Deconditioning Aspiration sCHF -chronic INDIGO on CPAP but not compliant s/p Hypercapnea Plan: May transfer to floor Continue CPAP at night and Bi-Pap PRN Speech and swallow evaluation Wean down steroids to off Critical Care Time: 45
[2019-01-13] MEDS: Gabapentin CAP(*) 300 MG PO SCH ×2 (14:30→21:11)
[2019-01-13] MEDS: D5W 1/2 NS KCl 20 Meq 1000 ML* 1,000 ML IV SCH (17:53)
[2019-01-13] MEDS: Senna TAB 8.6 mg* TAB PO PRN (21:13)
[2019-01-14] MEDS: D5W 1/2 NS KCl 20 Meq 1000 ML* 1,000 ML IV SCH (01:46)
[2019-01-14] MEDS: Polyethylene Glycol 3350* 17 GM PACKET PO PRN (05:20)
[2019-01-14] MEDS: TRIMETH IVPB SCH ×3 (05:52→15:24)
[2019-01-14] MEDS: D5W IVPB SCH ×3 (05:52→15:24)
[2019-01-14] MEDS: SULFAMETHOXAZOLE IVPB SCH ×3 (05:52→15:24)
[2019-01-14] MEDS: Ondansetron INJ* 2 MG/ML VIAL IV PRN ×2 (07:27→13:49)
[2019-01-14] MEDS: SPIRIVA Respimat* (tiotropium) 2.5 mcg/inh Inhaler INH SCH (07:41)
[2019-01-14] MEDS: Mometasone/Formoter 200/5 MDI INH SCH ×2 (07:41→20:41)
[2019-01-14] MEDS: Furosemide IV* 10 MG/ML VIAL (40 MG) IV SCH ×2 (08:04→16:34)
[2019-01-14] MEDS: Atorvastatin* 40 MG TAB PO SCH (08:07)
[2019-01-14] MEDS: Gabapentin CAP(*) 100 MG PO SCH ×2 (08:07→14:29)
[2019-01-14] MEDS: Ferrous Sulfate TAB* 325 MG PO SCH ×2 (08:07→20:58)
[2019-01-14] MEDS: Docusate CAP* 100 MG PO SCH ×2 (08:07→20:58)
[2019-01-14] MEDS: BuPROPion XL* 150 MG TAB.XL PO SCH (08:07)
[2019-01-14] MEDS: Aspirin 81 mg CHEW TAB* 81 MG TAB.CHEW PO SCH (08:08)
[2019-01-14] MEDS: Finasteride TAB* 5 MG PO SCH (08:08)
[2019-01-14] MEDS: predniSONE TAB* 20 MG PO SCH (08:08)
[2019-01-14] MEDS: Citalopram TAB* 20 MG PO SCH (08:08)
[2019-01-14] MEDS: Apixaban* 5 MG TAB PO SCH ×2 (08:08→20:58)
[2019-01-14] MEDS: Metoprolol Succinate XL TAB* 25 MG PO SCH (08:08)
[2019-01-14] MEDS: Dronedarone TAB* 400 MG PO SCH ×2 (08:10→16:34)
[2019-01-14] MEDS: Pantoprazole TAB * 40 MG TAB PO SCH (08:10)
[2019-01-14] MEDS: Sucralfate TAB* 1 GM PO SCH ×4 (08:14→20:58)
[2019-01-14] MEDS: oxyCODONE/Acetamin 5/325 MG* TAB PO PRN (11:52)
[2019-01-14] MEDS: Senna TAB 8.6 mg* TAB PO PRN (11:52)
[2019-01-14] MEDS ORDERED: Magnesium CITRATE* 300 ML BTL PO ONE (11:57)
--- NOTE | 2019-01-14 15:26 | PN ---
Subjective Date of Service: 01/14/19 Interval History: Patient seen and examined. Appears fatigued, denies acute SOB, no chest pain. No acute overnight events. Remains on Bipap at night. Objective Active Medications: Acetaminophen (Tylenol Tab*) 650 mg PO Q4H PRN PRN Reason: MILD PAIN or TEMP > 100.4 Last Admin: 01/13/19 02:30 Dose: 650 mg Albuterol (Ventolin 2.5 Mg/3 Ml Neb.Damaris*) 2.5 mg INH [id number] AWAKE PRN PRN Reason: sob/wheezing Last Admin: 01/13/19 07:53 Dose: 2.5 mg Apixaban (Eliquis*) 5 mg PO BID [facility] Last Admin: 01/14/19 08:08 Dose: 5 mg Aspirin (Aspirin 81 Mg Chew Tab*) 81 mg PO DAILY [facility] Last Admin: 01/14/19 08:08 Dose: 81 mg Atorvastatin Calcium (Lipitor*) 40 mg PO DAILY [facility]; Protocol Last Admin: 01/14/19 08:07 Dose: 40 mg Bupropion HCl (Wellbutrin Xl *) 150 mg PO DAILY [facility] Last Admin: 01/14/19 08:07 Dose: 150 mg Citalopram Hydrobromide (Celexa Tab*) 20 mg PO QAM [facility] Last Admin: 01/14/19 08:08 Dose: 20 mg Docusate Sodium (Colace Cap*) 100 mg PO BID [facility] Last Admin: 01/14/19 08:07 Dose: 100 mg Dronedarone (Multaq Tab*) 400 mg PO BID WITH MEALS [facility] Last Admin: 01/14/19 08:10 Dose: 400 mg Ferrous Sulfate (Ferrous Sulfate Tab*) 325 mg PO BID [facility] Last Admin: 01/14/19 08:07 Dose: 325 mg Finasteride (Proscar Tab*) 5 mg PO DAILY [facility]; Protocol Last Admin: 01/14/19 08:08 Dose: 5 mg Furosemide (Lasix Iv*) 60 mg IV 0900,1700 [facility] Last Admin: 01/14/19 08:04 Dose: 60 mg Gabapentin (Neurontin Cap(*)) 100 mg PO 0800,1400 [facility] Last Admin: 01/14/19 14:29 Dose: 100 mg Gabapentin (Neurontin Cap(*)) 300 mg PO BEDTIME [facility] Last Admin: 01/13/19 21:11 Dose: 300 mg Trimethoprim/Sulfamethoxazole (460 mg/ Dextrose) 528.75 mls @ 264.375 mls/hr IVPB 0600,1400,2200 [facility] Last Admin: 01/14/19 05:52 Dose: 264.375 mls/hr Metoprolol Succinate (Toprol Xl Tab*) 50 mg PO DAILY [facility] Last Admin: 01/14/19 08:08 Dose: 50 mg Metoprolol Tartrate (Lopressor Iv*) 5 mg IV Q6H PRN PRN Reason: HR>120 Last Admin: 01/10/19 09:33 Dose: 5 mg Mometasone Furoate/Formoterol Fumar (Dulera 200/5 Mdi*) 2 puff INH BID [facility] Last Admin: 01/14/19 07:41 Dose: 2 puff Ondansetron HCl (Zofran Inj*) 4 mg IV Q6H PRN PRN Reason: NAUSEA Last Admin: 01/14/19 13:49 Dose: 4 mg Oxycodone/Acetaminophen (Percocet 5/325 Tab*) 1 tab PO Q3H PRN PRN Reason: PAIN - SEVERE Last Admin: 01/14/19 11:52 Dose: 1 tab Pantoprazole Sodium (Protonix Tab*) 40 mg PO DAILY [facility] Last Admin: 01/14/19 08:10 Dose: 40 mg Polyethylene Glycol/Electrolytes (Miralax*) 17 gm PO DAILY PRN PRN Reason: CONSTIPATION Last Admin: 01/14/19 05:20 Dose: 17 gm Polyethylene Glycol/Electrolytes (Miralax*) 17 gm PO DAILY PRN PRN Reason: CONSTIPATION Prednisone (Deltasone Tab*) 20 mg PO DAILY [facility] Last Admin: 01/14/19 08:08 Dose: 20 mg Senna (Senokot 8.6 Mg Tab*) 1 tab PO DAILY PRN PRN Reason: CONSTIPATION Last Admin: 01/14/19 11:52 Dose: 1 tab Sucralfate (Carafate*) 1 gm PO ACHS [facility] Last Admin: 01/14/19 10:58 Dose: 1 gm Tiotropium [place] (Spiriva Respimat 2.5 Mcg) 2 puff INH DAILY [facility] Last Admin: 01/14/19 07:41 Dose: 2 puff Vital Signs - 8 hr 10/01/14/19 01/14/19 08:00 08:07 11:52 Respiratory 17 19 19 Rate 01/14/19 01/14/19 14:27 14:29 Respiratory 21 21 Rate Oxygen Devices in Use Now: Nasal Cannula Appearance: ill appearing, NAD Eyes: PERRLA Ears/Nose/Mouth/Throat: Mucous Membranes Moist Neck: NL Appearance and Movements; NL JVP, Trachea Midline Respiratory: - - shallow inspirations/poor inspiratory effort, bilateral crackles Cardiovascular: NL Sounds; No Murmurs; No JVD, RRR Extremities: No Clubbing, Cyanosis, - - bilateral LE edema Skin: No Nodules or Sclerosis Neurological: Alert and Oriented x 3 Nutrition: Taking PO's Result Diagrams: 01/12/19 04:42 01/12/19 04:42 Microbiology and Other Data: Microbiology 01/11/19 10:25 Aerobic Blood Culture - Preliminary Blood Venous No Growth Day 3 Anaerobic Blood Culture - Preliminary No Growth Day 3 01/08/19 15:33 Aerobic Blood Culture - Final Blood Venous No Growth Day 5 Anaerobic Blood Culture - Final No Growth Day 5 01/08/19 15:33 Aerobic Blood Culture - Final Blood Venous No Growth Day 5 Anaerobic Blood Culture - Final No Growth Day 5 01/11/19 13:15 Gram Stain - Final Sputum Sputum Culture - Final Stenotrophomas Maltophilia YEAST 01/11/19 10:25 Urine Culture - Final Urine No Growth (<1,000 CFU/mL) 01/09/19 04:15 Gram Stain - Final Sputum Sputum Culture - Final Stenotrophomas Maltophilia 01/08/19 21:00 Urine Culture - Final Urine No Growth (<1,000 CFU/mL) 01/08/19 21:00 Legionella Urinary Antigen - Final Urine Negative Legionella Antigen Streptococcus pneumoniae Ag Screen - Final Negative S. pneumo Antigen Diagnostic Imaging: Patient Name: CRYSTAL CAMPOS Medical Record#: [id number] Ordering Physician: Jada Avila MD Acct.#: [id number] : 1940 Age: 78 Sex: M Location: [facility] Exam Date: 01/12/19819 ADM Status: ADM IN Order Information: CHEST AP OR PORT Accession Number: [id number] CPT: 31468 Indication: Pneumonia. Single frontal view of the chest performed at 0827 hours was reviewed. Comparison is made with previous exam dated January 10, 2017. Cardiomegaly is noted. There may be airspace disease in left base which may represent pneumonia. Tortuous descending aorta is noted. Right lung field is clear. IMPRESSION: SUGGESTION OF LEFT LOWER LOBE PNEUMONIA. Assess/Plan/Problems-Billing Assessment: This is a 78 year old male with history of COPD, heart failure, chronic pain and rapidly progressive deconditioning that presents with encephalopathic changes and weakness after being discahrged from rehab 6 days prior to admission , initially in ICU for vapotherm, now downgraded to floor. - Patient Problems (1) Altered mental status Code(s): R41.82 - ALTERED MENTAL STATUS, UNSPECIFIED SNOMED Code(s): 242923780 Comment: - Encephalopathy improving with current interventions - Multifactorial, secondary to infection, PNA, hypoxia, hypercarbia, progressive deconditioning (2) Acute on chronic respiratory failure with hypoxia and hypercapnia Code(s): J96.21 - ACUTE AND CHRONIC RESPIRATORY FAILURE WITH HYPOXIA; J96.22 - ACUTE AND CHRONIC RESPIRATORY FAILURE WITH HYPERCAPNIA SNOMED Code(s): 62118722569282 Comment: - With metabolic encephalopathy, now improving with appropriate oxygenation - 2/2 COPD, acutely decompensated systolic HF and PNA - Continue lasix BID - Supplemental OZ via NC when awake and NIV at night - Nebs, inhalers, pulm toilet (3) Pneumonia Code(s): J18.9 - PNEUMONIA, UNSPECIFIED ORGANISM SNOMED Code(s): 810567364 Comment: - LLL with evidence of airspace disease and sputum with stenotrophomas maltophilia, sensitive to levaquin and bactrim - Continue bactrim and prednisone with pulmonary toilet, low greade fevers resolved, still with leukocytosis, continue to trend (4) Atrial fibrillation Code(s): I48.91 - UNSPECIFIED ATRIAL FIBRILLATION SNOMED Code(s): 03665598 Comment: - Controlled on Multaq 400mg BID - Eliquis 5 mg BID for AC, some pink tinged urine, continue to monitor (5) Chronic systolic congestive heart failure Code(s): I50.22 - CHRONIC SYSTOLIC (CONGESTIVE) HEART FAILURE SNOMED Code(s): 394439305 Comment: - Acutely decompensated - Continue diuresis, unclear why IVF were started last night which I have discontinued - Continue BB (6) BPH (benign prostatic hyperplasia) Code(s): N40.0 - BENIGN PROSTATIC HYPERPLASIA WITHOUT LOWER URINRY TRACT SYMP SNOMED Code(s): 902751991 Comment: - Continue finasteride and ellison (7) CAD (coronary artery disease) Code(s): I25.10 - ATHSCL HEART DISEASE OF [place] CORONARY ARTERY W/O ANG PCTRS SNOMED Code(s): 13739509 Comment: - Continue metoprolol and lipitor (8) Chronic pain Code(s): G89.29 - OTHER CHRONIC PAIN SNOMED Code(s): 92815763 Comment: - Continue PRN pain meds and monitor for sedation (9) Depression Code(s): F32.9 - MAJOR DEPRESSIVE DISORDER, SINGLE EPISODE, UNSPECIFIED SNOMED Code(s): 58815945 Comment: - Continue escitalopram and duloxetine. (10) Neurogenic bladder Code(s): N31.9 - NEUROMUSCULAR DYSFUNCTION OF [place], UNSPECIFIED SNOMED Code (s): 875175597 Comment: - Continue ellison, usually straight cath's at home - Urine pink tinged, likely 2/2 eliquis, monitor (11) INDIGO (obstructive sleep apnea) Code(s): G47.33 - OBSTRUCTIVE SLEEP APNEA (ADULT) (PEDIATRIC) SNOMED Code(s): 97197962 Comment: - Continue BiPAP with sleep, reinforce compliance (12) DVT prophylaxis Code(s): BVR9288 - SNOMED Code(s): 837612533 Comment: - On Eliquis (13) Full code status Code(s): Z78.9 - OTHER SPECIFIED HEALTH STATUS SNOMED Code(s): 039361656 Comment: - Per note from Dr. Avila, she had extensive conversation with patient's that he remains full code with all interventions requested, also noted consult with Dr. Clemens from Palliative care - Continue full code status Status and Disposition: Inpatient, fair to guarded. Will likely need rehab.
[2019-01-14] MEDS: Gabapentin CAP(*) 300 MG PO SCH (20:58)
[2019-01-14] MEDS ORDERED: Bisacodyl SUPP* 10 MG SUPP PR ONE (21:14)
[2019-01-15] MEDS: TRIMETH IVPB SCH ×4 (00:32→22:31)
[2019-01-15] MEDS: SULFAMETHOXAZOLE IVPB SCH ×4 (00:32→22:31)
[2019-01-15] MEDS: D5W IVPB SCH ×4 (00:32→22:31)
[2019-01-15] MEDS: oxyCODONE/Acetamin 5/325 MG* TAB PO PRN ×3 (00:39→23:25)
[2019-01-15 07:43] LABS: ABS Eosinophils 0.1 10^3/ul (0-0.6); ABS Lymphocytes 2.2 10^3/ul (1.0-4.8); ABS Monocytes 1.3 10^3/ul (0-0.8); ABS Neutrophils 10.2 10^3/ul (1.5-7.7); Eosinophil % 0.5 %; Hematocrit 30 % (42-52); Lymphocyte % 15.8 %; Mean Corpuscular HGB Conc 34 g/dL (31-36); Mean Corpuscular Hemoglobin 32 pg (27-31); Mean Corpuscular Volume 95 fL (80-94); Mean Platelet Volume 8.2 fL (7.4-10.4); Nucleated Red Blood Cells % 0.1; Platelet Count 254 10^3/uL (150-450); Red Blood Count 3.13 10^6 /uL (4.18-5.48); Red Cell Distribution Width 14 % (10-15); White Blood Count 13.8 10^3/uL (3.5-10.8)
[2019-01-15 07:57] LABS: ALT 12 U/L (7-52); Albumin/Globulin Ratio 1.3 (1-3); Alkaline Phosphatase 53 U/L (34-104); BUN/Creatinine Ratio 18.3 (8-20); Blood Urea Nitrogen 31 mg/dL (6-24); CO2 Carbon Dioxide 39 mmol/L (22-32); Calcium 8.6 mg/dL (8.6-10.3); Chloride 89 mmol/L (101-111); EGFR Non-African American 39.7 (>60); Globulin 2.4 g/dL (2-4); Glucose 66 mg/dL (70-100); Sodium 132 mmol/L (135-145); Total Protein 5.4 g/dL (6.4-8.9)
[2019-01-15] MEDS: Mometasone/Formoter 200/5 MDI INH SCH ×2 (08:28→19:17)
[2019-01-15] MEDS: SPIRIVA Respimat* (tiotropium) 2.5 mcg/inh Inhaler INH SCH (08:29)
[2019-01-15] MEDS: Ferrous Sulfate TAB* 325 MG PO SCH ×2 (08:59→22:31)
[2019-01-15] MEDS: BuPROPion XL* 150 MG TAB.XL PO SCH (08:59)
[2019-01-15] MEDS: Metoprolol Succinate XL TAB* 25 MG PO SCH (09:01)
[2019-01-15] MEDS: Citalopram TAB* 20 MG PO SCH (09:02)
[2019-01-15] MEDS: Gabapentin CAP(*) 100 MG PO SCH ×2 (09:02→15:28)
[2019-01-15] MEDS: Pantoprazole TAB * 40 MG TAB PO SCH (09:02)
[2019-01-15] MEDS: Docusate CAP* 100 MG PO SCH ×2 (09:02→22:25)
[2019-01-15] MEDS: Finasteride TAB* 5 MG PO SCH (09:02)
[2019-01-15] MEDS: Atorvastatin* 40 MG TAB PO SCH (09:02)
[2019-01-15] MEDS: Aspirin 81 mg CHEW TAB* 81 MG TAB.CHEW PO SCH (09:02)
[2019-01-15] MEDS: Sucralfate TAB* 1 GM PO SCH ×5 (09:02→22:25)
[2019-01-15] MEDS: Dronedarone TAB* 400 MG PO SCH ×2 (09:02→16:20)
[2019-01-15] MEDS ORDERED: Sodium Phosphate ADULT ENEMA* 118 ml bottle PR ONE (09:04)
[2019-01-15] MEDS: Apixaban* 5 MG TAB PO SCH ×2 (09:04→22:26)
[2019-01-15] MEDS: predniSONE TAB* 20 MG PO SCH (09:04)
[2019-01-15 10:04] LABS: Anion Gap 4 mmol/L (2-11)
[2019-01-15] MEDS: Ondansetron INJ* 2 MG/ML VIAL IV PRN (10:25)
[2019-01-15 13:53] LABS: Potassium Redraw 4.3 mmol/L (3.5-5.0)
--- NOTE | 2019-01-15 16:53 | PN ---
Subjective Date of Service: 01/15/19 Interval History: Patient seen and examined. Still no BM per nursing staff. Patient remains weak and ill-appearing, but no acute SOB, no chest pain, no fevers and no further overnight events. Objective Active Medications: Acetaminophen (Tylenol Tab*) 650 mg PO Q4H PRN PRN Reason: MILD PAIN or TEMP > 100.4 Last Admin: 01/13/19 02:30 Dose: 650 mg Albuterol (Ventolin 2.5 Mg/3 Ml Neb.Damaris*) 2.5 mg INH [id number] AWAKE PRN PRN Reason: sob/wheezing Last Admin: 01/13/19 07:53 Dose: 2.5 mg Alprazolam (Xanax Tab*) 0.25 mg PO BID PRN PRN Reason: ANXIETY Apixaban (Eliquis*) 5 mg PO BID [facility] Last Admin: 01/15/19 09:04 Dose: 5 mg Aspirin (Aspirin 81 Mg Chew Tab*) 81 mg PO DAILY [facility] Last Admin: 01/15/19 09:02 Dose: 81 mg Atorvastatin Calcium (Lipitor*) 40 mg PO DAILY [facility]; Protocol Last Admin: 01/15/19 09:02 Dose: 40 mg Bupropion HCl (Wellbutrin Xl *) 150 mg PO DAILY [facility] Last Admin: 01/15/19 08:59 Dose: 150 mg Citalopram Hydrobromide (Celexa Tab*) 20 mg PO QAM [facility] Last Admin: 01/15/19 09:02 Dose: 20 mg Docusate Sodium (Colace Cap*) 100 mg PO BID [facility] Last Admin: 01/15/19 09:02 Dose: 100 mg Dronedarone (Multaq Tab*) 400 mg PO BID WITH MEALS [facility] Last Admin: 01/15/19 16:20 Dose: 400 mg Ferrous Sulfate (Ferrous Sulfate Tab*) 325 mg PO BID [facility] Last Admin: 01/15/19 08:59 Dose: 325 mg Finasteride (Proscar Tab*) 5 mg PO DAILY [facility]; Protocol Last Admin: 01/15/19 09:02 Dose: 5 mg Gabapentin (Neurontin Cap(*)) 100 mg PO 0800,1400 [facility] Last Admin: 01/15/19 15:28 Dose: 100 mg Gabapentin (Neurontin Cap(*)) 300 mg PO BEDTIME [facility] Last Admin: 01/14/19 20:58 Dose: 300 mg Trimethoprim/Sulfamethoxazole (460 mg/ Dextrose) 528.75 mls @ 264.375 mls/hr IVPB 0600,1400,2200 [facility] Last Admin: 01/15/19 15:29 Dose: 264.375 mls/hr Metoprolol Succinate (Toprol Xl Tab*) 50 mg PO DAILY [facility] Last Admin: 01/15/19 09:01 Dose: 50 mg Metoprolol Tartrate (Lopressor Iv*) 5 mg IV Q6H PRN PRN Reason: HR>120 Last Admin: 01/10/19 09:33 Dose: 5 mg Mometasone Furoate/Formoterol Fumar (Dulera 200/5 Mdi*) 2 puff INH BID [facility] Last Admin: 01/15/19 08:28 Dose: 2 puff Ondansetron HCl (Zofran Inj*) 4 mg IV Q6H PRN PRN Reason: NAUSEA Last Admin: 01/15/19 10:25 Dose: 4 mg Oxycodone/Acetaminophen (Percocet 5/325 Tab*) 1 tab PO Q3H PRN PRN Reason: PAIN - SEVERE Last Admin: 01/15/19 10:26 Dose: 1 tab Pantoprazole Sodium (Protonix Tab*) 40 mg PO DAILY [facility] Last Admin: 01/15/19 09:02 Dose: 40 mg Polyethylene Glycol/Electrolytes (Miralax*) 17 gm PO DAILY PRN PRN Reason: CONSTIPATION Last Admin: 01/14/19 05:20 Dose: 17 gm Polyethylene Glycol/Electrolytes (Miralax*) 17 gm PO DAILY PRN PRN Reason: CONSTIPATION Prednisone (Deltasone Tab*) 20 mg PO DAILY [facility] Last Admin: 01/15/19 09:04 Dose: 20 mg Senna (Senokot 8.6 Mg Tab*) 1 tab PO DAILY PRN PRN Reason: CONSTIPATION Last Admin: 01/14/19 11:52 Dose: 1 tab Sucralfate (Carafate*) 1 gm PO ACHS [facility] Last Admin: 01/15/19 15:30 Dose: 1 gm Tiotropium [place] (Spiriva Respimat 2.5 Mcg) 2 puff INH DAILY [facility] Last Admin: 01/15/19 08:29 Dose: 2 puff Vital Signs - 8 hr 1001/15/19 01/15/19 09:02 10:26 15:28 Respiratory 17 Rate Oxygen Devices in Use Now: Nasal Cannula Appearance: alert, NAD Eyes: PERRLA Ears/Nose/Mouth/Throat: Mucous Membranes Moist Neck: NL Appearance and Movements; NL JVP, Trachea Midline Respiratory: Symmetrical Chest Expansion and Respiratory Effort, - - diminished throughout, no wheeze or rhonchi noted Cardiovascular: NL Sounds; No Murmurs; No JVD, RRR Abdominal: NL Sounds; No Tenderness; No Distention Extremities: No Clubbing, Cyanosis Skin: No Nodules or Sclerosis Neurological: Alert and Oriented x 3 Lines/Tubes/Other Access: Clean, Dry and Intact Ellison Nutrition: Taking PO's Result Diagrams: 01/15/19 06:50 01/15/19 12:56 Microbiology and Other Data: Microbiology 01/11/19 10:25 Aerobic Blood Culture - Preliminary Blood Venous No Growth Day 3 Anaerobic Blood Culture - Preliminary No Growth Day 3 01/08/19 15:33 Aerobic Blood Culture - Final Blood Venous No Growth Day 5 Anaerobic Blood Culture - Final No Growth Day 5 01/08/19 15:33 Aerobic Blood Culture - Final Blood Venous No Growth Day 5 Anaerobic Blood Culture - Final No Growth Day 5 01/11/19 13:15 Gram Stain - Final Sputum Sputum Culture - Final Stenotrophomas Maltophilia YEAST 01/11/19 10:25 Urine Culture - Final Urine No Growth (<1,000 CFU/mL) 01/09/19 04:15 Gram Stain - Final Sputum Sputum Culture - Final Stenotrophomas Maltophilia 01/08/19 21:00 Urine Culture - Final Urine No Growth (<1,000 CFU/mL) 01/08/19 21:00 Legionella Urinary Antigen - Final Urine Negative Legionella Antigen Streptococcus pneumoniae Ag Screen - Final Negative S. pneumo Antigen Diagnostic Imaging: Patient Name: CRYTSAL CAMPOS Medical Record#: [id number] Ordering Physician: Jada Avila MD Acct.#: [id number] : 1940 Age: 78 Sex: M Location: [facility] Exam Date: 01/12/19819 ADM Status: ADM IN Order Information: CHEST AP OR PORT Accession Number: [id number] CPT: 10379 Indication: Pneumonia. Single frontal view of the chest performed at 0827 hours was reviewed. Comparison is made with previous exam dated January 10, 2017. Cardiomegaly is noted. There may be airspace disease in left base which may represent pneumonia. Tortuous descending aorta is noted. Right lung field is clear. IMPRESSION: SUGGESTION OF LEFT LOWER LOBE PNEUMONIA. Assess/Plan/Problems-Billing Assessment: This is a 78 year old male with history of COPD, heart failure, chronic pain and rapidly progressive deconditioning that presents with encephalopathic changes and weakness after being discahrged from rehab 6 days prior to admission , initially in ICU for vapotherm, now downgraded to floor. - Patient Problems (1) Altered mental status Code(s): R41.82 - ALTERED MENTAL STATUS, UNSPECIFIED SNOMED Code(s): 893548017 Comment: - Encephalopathy resolved with current interventions - Multifactorial, secondary to infection, PNA, hypoxia, hypercarbia, progressive deconditioning (2) Acute on chronic respiratory failure with hypoxia and hypercapnia Code(s): J96.21 - ACUTE AND CHRONIC RESPIRATORY FAILURE WITH HYPOXIA; J96.22 - ACUTE AND CHRONIC RESPIRATORY FAILURE WITH HYPERCAPNIA SNOMED Code(s): 25749272158486 Comment: - With metabolic encephalopathy, now resolved with appropriate oxygenation - 2/2 COPD, acutely decompensated systolic HF and PNA - Discontinue IV lasix, slight bump in creat, but is euvolemic today - Supplemental O2 via NC when awake and NIV at night - Nebs, inhalers, pulm toilet (3) Pneumonia Code(s): J18.9 - PNEUMONIA, UNSPECIFIED ORGANISM SNOMED Code(s): 014845381 Comment: - LLL with evidence of airspace disease and sputum with stenotrophomas maltophilia, sensitive to levaquin and bactrim - Continue bactrim and prednisone with pulmonary toilet, low greade fevers resolved, still with leukocytosis, continue to trend (4) Constipation Code(s): K59.00 - CONSTIPATION, UNSPECIFIED SNOMED Code(s): 64362930 Comment: - 2/2 narcotics and immobility - continue bowel regimen - Enema today with some effect (5) Atrial fibrillation Code(s): I48.91 - UNSPECIFIED ATRIAL FIBRILLATION SNOMED Code(s): 06654564 Comment: - Controlled on Multaq 400mg BID - Eliquis 5 mg BID for AC, some pink tinged urine, continue to monitor (6) Chronic systolic congestive heart failure Code(s): I50.22 - CHRONIC SYSTOLIC (CONGESTIVE) HEART FAILURE SNOMED Code(s): 382683335 Comment: - Acutely decompensated - Stop IV lasix given elvated renal function, patient is euvolemic, monitor renal labs in AM - Continue BB (7) HERMILO (acute kidney injury) Code(s): N17.9 - ACUTE KIDNEY FAILURE, UNSPECIFIED SNOMED Code(s): 13901144 Comment: - Pre-renal 2/2 aggressive diuresis - Recheck labs in AM, lasix discontinued (8) BPH (benign prostatic hyperplasia) Code(s): N40.0 - BENIGN PROSTATIC HYPERPLASIA WITHOUT LOWER URINRY TRACT SYMP SNOMED Code(s): 958835807 Comment: - Continue finasteride and ellison (9) CAD (coronary artery disease) Code(s): I25.10 - ATHSCL HEART DISEASE OF [place] CORONARY ARTERY W/O ANG PCTRS SNOMED Code(s): 34677893 Comment: - Continue metoprolol and lipitor (10) Chronic pain Code(s): G89.29 - OTHER CHRONIC PAIN SNOMED Code(s): 68982084 Comment: - Continue PRN pain meds and monitor for sedation (11) Depression Code(s): F32.9 - MAJOR DEPRESSIVE DISORDER, SINGLE EPISODE, UNSPECIFIED SNOMED Code(s): 57855273 Comment: - Continue escitalopram and duloxetine. (12) Neurogenic bladder Code(s): N31.9 - NEUROMUSCULAR DYSFUNCTION OF BLADDER, UNSPECIFIED SNOMED Code (s): 934745931 Comment: - Continue ellison, usually straight cath's at home - Urine pink tinged, likely 2/2 eliquis, monitor (13) INDIGO (obstructive sleep apnea) Code(s): G47.33 - OBSTRUCTIVE SLEEP APNEA (ADULT) (PEDIATRIC) SNOMED Code(s): 92501797 Comment: - Continue BiPAP with sleep, reinforce compliance (14) DVT prophylaxis Code(s): ERN2496 - SNOMED Code(s): 454529916 Comment: - On Eliquis (15) Full code status Code(s): Z78.9 - OTHER SPECIFIED HEALTH STATUS SNOMED Code(s): 421584777 Comment: - Per note from Dr. Avila, she had extensive conversation with patient's that he remains full code with all interventions requested, also noted consult with Dr. Clemens from Palliative care - Continue full code status Status and Disposition: Inpatient, fair to guarded. Will need rehab, referrals out.
[2019-01-15] MEDS: ALPRAZolam TAB* 0.25 MG PO PRN (18:03)
[2019-01-15] MEDS: Gabapentin CAP(*) 300 MG PO SCH (22:27)
[2019-01-16] MEDS: ALPRAZolam TAB* 0.25 MG PO PRN ×2 (01:05→14:36)
[2019-01-16] MEDS: Ondansetron INJ* 2 MG/ML VIAL IV PRN (05:43)
[2019-01-16] MEDS: oxyCODONE/Acetamin 5/325 MG* TAB PO PRN ×2 (05:43→11:51)
[2019-01-16] MEDS: D5W IVPB SCH ×3 (06:57→22:34)
[2019-01-16] MEDS: SULFAMETHOXAZOLE IVPB SCH ×3 (06:57→22:34)
[2019-01-16] MEDS: TRIMETH IVPB SCH ×3 (06:57→22:34)
[2019-01-16] MEDS: Mometasone/Formoter 200/5 MDI INH SCH ×2 (07:36→19:43)
[2019-01-16] MEDS: SPIRIVA Respimat* (tiotropium) 2.5 mcg/inh Inhaler INH SCH (07:36)
[2019-01-16] MEDS: Sucralfate TAB* 1 GM PO SCH ×4 (08:36→21:40)
[2019-01-16] MEDS ORDERED: Influenza VAC *QUAD* 2019-20* 0.5 ML SYRINGE IM ONE (09:00)
[2019-01-16] MEDS: BuPROPion XL* 150 MG TAB.XL PO SCH (09:08)
[2019-01-16] MEDS: Polyethylene Glycol 3350* 17 GM PACKET PO PRN (09:08)
[2019-01-16] MEDS: Finasteride TAB* 5 MG PO SCH (09:09)
[2019-01-16] MEDS: Dronedarone TAB* 400 MG PO SCH ×2 (09:09→16:41)
[2019-01-16] MEDS: Ferrous Sulfate TAB* 325 MG PO SCH ×2 (09:09→21:41)
[2019-01-16] MEDS: Aspirin 81 mg CHEW TAB* 81 MG TAB.CHEW PO SCH (09:09)
[2019-01-16] MEDS: Metoprolol Succinate XL TAB* 25 MG PO SCH (09:09)
[2019-01-16] MEDS: Atorvastatin* 40 MG TAB PO SCH (09:09)
[2019-01-16] MEDS: Senna TAB 8.6 mg* TAB PO PRN (09:09)
[2019-01-16] MEDS: Apixaban* 5 MG TAB PO SCH ×2 (09:09→21:41)
[2019-01-16] MEDS: Gabapentin CAP(*) 100 MG PO SCH ×2 (09:09→14:15)
[2019-01-16] MEDS: Pantoprazole TAB * 40 MG TAB PO SCH (09:09)
[2019-01-16] MEDS: Docusate CAP* 100 MG PO SCH ×2 (09:09→21:40)
[2019-01-16] MEDS: Citalopram TAB* 20 MG PO SCH (09:09)
[2019-01-16] MEDS: predniSONE TAB* 20 MG PO SCH (09:09)
[2019-01-16 10:59] LABS: BUN/Creatinine Ratio 19.1 (8-20); Calcium 8.4 mg/dL (8.6-10.3); EGFR African American 52.2 (>60); EGFR Non-African American 43.2 (>60)
--- NOTE | 2019-01-16 13:06 | PN ---
Subjective Date of Service: 01/16/19 Interval History: Pt c/o cough that is occasionally productive. He denies fever/chills. He c/o abdominal pain starting yesterday. He states that this was before his BM yesterday, but continues intermittently today. He c/o of some nausea, no recent vomiting. He is on 5L O2 currently (home requirements are 3L). No other complaints today. Objective Active Medications: Acetaminophen (Tylenol Tab*) 650 mg PO Q4H PRN Albuterol (Ventolin 2.5 Mg/3 Ml Neb.Damaris*) 2.5 mg INH [id number] AWAKE PRN Alprazolam (Xanax Tab*) 0.25 mg PO BID PRN Apixaban (Eliquis*) 5 mg PO BID ARTI Aspirin (Aspirin 81 Mg Chew Tab*) 81 mg PO DAILY ARTI Atorvastatin Calcium (Lipitor*) 40 mg PO DAILY ARTI; Protocol Bupropion HCl (Wellbutrin Xl *) 150 mg PO DAILY ARTI Citalopram Hydrobromide (Celexa Tab*) 20 mg PO QAM ARTI Docusate Sodium (Colace Cap*) 100 mg PO BID ARTI Dronedarone (Multaq Tab*) 400 mg PO BID WITH MEALS ARTI Ferrous Sulfate (Ferrous Sulfate Tab*) 325 mg PO BID ARTI Finasteride (Proscar Tab*) 5 mg PO DAILY ARTI; Protocol Gabapentin (Neurontin Cap(*)) 100 mg PO 0800,1400 [facility] Gabapentin (Neurontin Cap(*)) 300 mg PO BEDTIME [facility] Trimethoprim/Sulfamethoxazole (460 mg/ Dextrose) 528.75 mls @ 264.375 mls/hr IVPB 0600,1400,2200 [facility] Influenza Virus Vaccine (Fluarix Quad [id number] Syr) 0.5 ml IM .ONCE ONE Metoprolol Succinate (Toprol Xl Tab*) 50 mg PO DAILY [facility] Metoprolol Tartrate (Lopressor Iv*) 5 mg IV Q6H PRN Mometasone Furoate/Formoterol Fumar (Dulera 200/5 Mdi*) 2 puff INH BID ARTI Ondansetron HCl (Zofran Inj*) 4 mg IV Q6H PRN Oxycodone/Acetaminophen (Percocet 5/325 Tab*) 1 tab PO Q3H PRN Pantoprazole Sodium (Protonix Tab*) 40 mg PO DAILY ARTI Polyethylene Glycol/Electrolytes (Miralax*) 17 gm PO DAILY PRN Polyethylene Glycol/Electrolytes (Miralax*) 17 gm PO DAILY PRN Prednisone (Deltasone Tab*) 20 mg PO DAILY ARTI Senna (Senokot 8.6 Mg Tab*) 1 tab PO DAILY PRN Sucralfate (Carafate*) 1 gm PO ACHS ARTI Tiotropium [place] (Spiriva Respimat 2.5 Mcg) 2 puff INH DAILY ARTI Vital Signs: Temp Pulse Resp BP Pulse Ox 97.7 F 85 16 105/60 94 01/16/19 11:00 01/16/19 11:00 01/16/19 11:51 01/16/19 11:00 01/16/19 11:00 Oxygen Devices in Use Now: Nasal Cannula Appearance: Pt is sitting in chair with LE elevated. He appears weak, chronically ill. No respiratory distress, with NC 5L in place. Ears/Nose/Mouth/Throat: Clear Oropharnyx, Mucous Membranes Moist, - - Poor dentition Neck: NL Appearance and Movements; NL JVP, Trachea Midline Respiratory: Symmetrical Chest Expansion and Respiratory Effort, - - LLL with crackles, expiratory wheeze. Abdominal: No Hepatosplenomegaly, - - BS all quadrants; obese, soft, mildly tender to palpation diffusely Extremities: No Edema, No Clubbing, Cyanosis Neurological: - - Alert. Oriented to person, place. Result Diagrams: 01/15/19 06:50 01/16/19 10:23 Microbiology and Other Data: Microbiology 01/11/19 10:25 Aerobic Blood Culture - Preliminary Blood Venous No Growth Day 3 Anaerobic Blood Culture - Preliminary No Growth Day 3 01/08/19 15:33 Aerobic Blood Culture - Final Blood Venous No Growth Day 5 Anaerobic Blood Culture - Final No Growth Day 5 01/08/19 15:33 Aerobic Blood Culture - Final Blood Venous No Growth Day 5 Anaerobic Blood Culture - Final No Growth Day 5 01/11/19 13:15 Gram Stain - Final Sputum Sputum Culture - Final Stenotrophomas Maltophilia YEAST 01/11/19 10:25 Urine Culture - Final Urine No Growth (<1,000 CFU/mL) 01/09/19 04:15 Gram Stain - Final Sputum Sputum Culture - Final Stenotrophomas Maltophilia 01/08/19 21:00 Urine Culture - Final Urine No Growth (<1,000 CFU/mL) 01/08/19 21:00 Legionella Urinary Antigen - Final Urine Negative Legionella Antigen Streptococcus pneumoniae Ag Screen - Final Negative S. pneumo Antigen Diagnostic Imaging: Patient Name: CRYSTAL CAMPOS Medical Record#: [id number] Ordering Physician: Jada Avila MD Acct.#: [id number] : 1940 Age: 78 Sex: M Location: [facility] Exam Date: 01/12/19819 ADM Status: ADM IN Order Information: CHEST AP OR PORT Accession Number: [id number] CPT: 74640 Indication: Pneumonia. Single frontal view of the chest performed at 0827 hours was reviewed. Comparison is made with previous exam dated January 10, 2017. Cardiomegaly is noted. There may be airspace disease in left base which may represent pneumonia. Tortuous descending aorta is noted. Right lung field is clear. IMPRESSION: SUGGESTION OF LEFT LOWER LOBE PNEUMONIA. Assess/Plan/Problems-Billing Assessment: This is a 78 year old male with history of COPD, heart failure, chronic pain and rapidly progressive deconditioning that presents with encephalopathic changes and weakness after being discahrged from rehab 6 days prior to admission , initially in ICU for vapotherm, now downgraded to floor. - Patient Problems (1) Pneumonia Comment: - LLL with evidence of airspace disease and sputum with stenotrophomas maltophilia, sensitive to levaquin and bactrim - Continue bactrim, pulmonary toilet - Continue prednisone 20 now x5d; then 10mg x5d, then 5mg x5d, then d/c - Low grade fevers resolved, still with leukocytosis, which is improving - Continue to trend (2) Chronic systolic congestive heart failure Comment: - Acutely decompensated, but appears to be improving - Stop IV lasix given decreased renal function; patient is euvolemic; creatinine improving - I/O, daily weights - Continue BB (3) Acute on chronic respiratory failure with hypoxia and hypercapnia Comment: - With metabolic encephalopathy, now resolved with appropriate oxygenation - 2/2 COPD, acutely decompensated systolic HF and PNA - Discontinue IV lasix, slight bump in creat, but is euvolemic today - Supplemental O2 via NC when awake; pt on 5L NC supp O2 now, requires 3L NC at home - NIV at night - Nebs, inhalers, pulm toilet (4) HERMILO (acute kidney injury) Comment: - Pre-renal 2/2 aggressive diuresis - Lasix discontinued - Improved with above intervention; will continue to monitor for resolution (5) Constipation Comment: - 2/2 narcotics and immobility - Likely source of abdominal pain - Enema 01/15 with some effect - Continue bowel regimen (6) Atrial fibrillation Comment: - Controlled on Multaq 400mg BID - Eliquis 5 mg BID for AC - Some pink tinged urine in Ellison bag - Continue to monitor (7) CAD (coronary artery disease) Comment: - Continue metoprolol and lipitor (8) BPH (benign prostatic hyperplasia) Comment: - Continue finasteride and ellison (9) Chronic pain Comment: - Continue PRN pain meds and monitor for sedation (10) Depression Comment: -Continue celexa and wellbutrin (11) INDIGO (obstructive sleep apnea) Comment: - Continue BiPAP with sleep, reinforce compliance (12) Neurogenic bladder Comment: - Continue ellison, usually straight cath's at home - Urine pink tinged, likely 2/2 eliquis, monitor (13) DVT prophylaxis Comment: - On Eliquis (14) Full code status Comment: - Per note from Dr. Avila, she had extensive conversation with patient's that he remains full code with all interventions requested, also noted consult with Dr. Clemens from Palliative care - Continue full code status Status and Disposition: Inpatient, fair to guarded. Will need rehab, referrals out.
[2019-01-16] MEDS: Gabapentin CAP(*) 300 MG PO SCH (21:40)
[2019-01-17] MEDS ORDERED: NS 0.9% 500 ML* 500 ML IV ONE ×2 (00:09→01:03)
[2019-01-17] MEDS: oxyCODONE/Acetamin 5/325 MG* TAB PO PRN ×2 (01:23→09:00)
[2019-01-17 05:52] LABS: ABS Lymphocytes 1.6 10^3/ul (1.0-4.8); ABS Monocytes 1.3 10^3/ul (0-0.8); ABS Neutrophils 12.3 10^3/ul (1.5-7.7); Hematocrit 28 % (42-52); Hemoglobin 9.3 g/dL (14.0-18.0); Lymphocyte % 10.6 %; Mean Corpuscular HGB Conc 34 g/dL (31-36); Mean Corpuscular Hemoglobin 32 pg (27-31); Mean Corpuscular Volume 95 fL (80-94); Mean Platelet Volume 6.8 fL (7.4-10.4); Platelet Count 239 10^3/uL (150-450); Red Blood Count 2.93 10^6 /uL (4.18-5.48); Red Cell Distribution Width 14 % (10-15); White Blood Count 15.2 10^3/uL (3.5-10.8)
[2019-01-17 06:10] LABS: Calcium 8.4 mg/dL (8.6-10.3); EGFR African American 50.4 (>60); EGFR Non-African American 41.6 (>60); Potassium 4.3 mmol/L (3.5-5.0)
[2019-01-17] MEDS: SULFAMETHOXAZOLE IVPB SCH ×2 (06:11→15:01)
[2019-01-17] MEDS: TRIMETH IVPB SCH ×2 (06:11→15:01)
[2019-01-17] MEDS: D5W IVPB SCH ×2 (06:11→15:01)
[2019-01-17] MEDS: SPIRIVA Respimat* (tiotropium) 2.5 mcg/inh Inhaler INH SCH (07:18)
[2019-01-17] MEDS: Mometasone/Formoter 200/5 MDI INH SCH ×2 (07:27→19:08)
[2019-01-17] MEDS ORDERED: Influenza VAC *QUAD* 2019-20* 0.5 ML SYRINGE IM ONE (09:00)
[2019-01-17] MEDS: Atorvastatin* 40 MG TAB PO SCH (09:02)
[2019-01-17] MEDS: BuPROPion XL* 150 MG TAB.XL PO SCH (09:02)
[2019-01-17] MEDS: Pantoprazole TAB * 40 MG TAB PO SCH (09:02)
[2019-01-17] MEDS: Finasteride TAB* 5 MG PO SCH (09:03)
[2019-01-17] MEDS: Gabapentin CAP(*) 100 MG PO SCH ×2 (09:07→14:16)
[2019-01-17] MEDS: Sucralfate TAB* 1 GM PO SCH ×4 (09:07→20:03)
[2019-01-17] MEDS: Metoprolol Succinate XL TAB* 25 MG PO SCH (09:07)
[2019-01-17] MEDS: Apixaban* 5 MG TAB PO SCH ×2 (09:08→20:03)
[2019-01-17] MEDS: Citalopram TAB* 20 MG PO SCH (09:08)
[2019-01-17] MEDS: Docusate CAP* 100 MG PO SCH ×2 (09:10→20:03)
[2019-01-17] MEDS: Ferrous Sulfate TAB* 325 MG PO SCH ×2 (09:10→20:03)
[2019-01-17] MEDS: Dronedarone TAB* 400 MG PO SCH ×2 (09:10→17:05)
[2019-01-17] MEDS: predniSONE TAB* 20 MG PO SCH (09:10)
[2019-01-17] MEDS: Aspirin 81 mg CHEW TAB* 81 MG TAB.CHEW PO SCH (09:10)
[2019-01-17] MEDS ORDERED: Furosemide IV* 10 MG/ML VIAL (40 MG) ONE (09:40)
[2019-01-17] MEDS ORDERED: Furosemide IV* 10 MG/ML 2 ML VIAL (20 MG) IV ONE ×2 (09:41→15:53)
--- NOTE | 2019-01-17 12:02 | PN ---
Subjective Date of Service: 01/17/19 Interval History: Called to room at 0930 for patient with sudden onset increased SOB, low O2 sat. Patient states that he is not feeling well and is confused. Bipap was started and the patient slowly improved. He was transferred to the ICU for continuation or bipap and close monitoring. Extensive discussion had with regarding prognosis. She states that he has been in and out of hospital numerous times and declines each time he goes home. He was home 6 days prior to return to the hospital. Discussion was had regarding the patients wishes, and, although Mrs. Sethi does not believe that Mr. Sethi would want to be on a vent or would recover from CPR, she does not feel ready to "give up on him yet." She would like to talk with other family members and Mr. Sethi. Objective Active Medications: Acetaminophen (Tylenol Tab*) 650 mg PO Q4H PRN Albuterol (Ventolin 2.5 Mg/3 Ml Neb.Damaris*) 2.5 mg INH [id number] AWAKE PRN Alprazolam (Xanax Tab*) 0.25 mg PO BID PRN Apixaban (Eliquis*) 5 mg PO BID ARTI Aspirin (Aspirin 81 Mg Chew Tab*) 81 mg PO DAILY ARTI Atorvastatin Calcium (Lipitor*) 40 mg PO DAILY ARTI; Protocol Bupropion HCl (Wellbutrin Xl *) 150 mg PO DAILY ARTI Citalopram Hydrobromide (Celexa Tab*) 20 mg PO QAM ARTI Docusate Sodium (Colace Cap*) 100 mg PO BID ARTI Dronedarone (Multaq Tab*) 400 mg PO BID WITH MEALS ARTI Ferrous Sulfate (Ferrous Sulfate Tab*) 325 mg PO BID ARTI Finasteride (Proscar Tab*) 5 mg PO DAILY ARTI; Protocol Gabapentin (Neurontin Cap(*)) 100 mg PO 0800,1400 [facility] Gabapentin (Neurontin Cap(*)) 300 mg PO BEDTIME [facility]I Trimethoprim/Sulfamethoxazole (460 mg/ Dextrose) 528.75 mls @ 264.375 mls/hr IVPB 0600,1400,2200 [facility] Metoprolol Succinate (Toprol Xl Tab*) 50 mg PO DAILY ARTI Metoprolol Tartrate (Lopressor Iv*) 5 mg IV Q6H PRN Mometasone Furoate/Formoterol Fumar (Dulera 200/5 Mdi*) 2 puff INH BID ARTI Ondansetron HCl (Zofran Inj*) 4 mg IV Q6H PRN Oxycodone/Acetaminophen (Percocet 5/325 Tab*) 1 tab PO Q3H PRN Pantoprazole Sodium (Protonix Tab*) 40 mg PO DAILY [facility]I Polyethylene Glycol/Electrolytes (Miralax*) 17 gm PO DAILY PRN Polyethylene Glycol/Electrolytes (Miralax*) 17 gm PO DAILY PRN Prednisone (Deltasone Tab*) 20 mg PO DAILY [facility]I Senna (Senokot 8.6 Mg Tab*) 1 tab PO DAILY PRN Sucralfate (Carafate*) 1 gm PO ACHS ARTI Tiotropium [place] (Spiriva Respimat 2.5 Mcg) 2 puff INH DAILY ARTI Vital Signs: Temp Pulse Resp BP Pulse Ox 99.1 F 82 21 114/71 96 01/17/19 15:00 01/17/19 15:00 01/17/19 15:00 01/17/19 14:45 01/17/19 15:00 Oxygen Devices in Use Now: BiPAP Appearance: Pt is laying in bed, leaning to R, with HOB elevated, bipap in place. He is an obese, chronically ill-appearing white male who appears to be in acute respiratory distress. He is asleep, wakes easily, responds to questioning. Eyes: No Scleral Icterus, PERRLA Neck: NL Appearance and Movements; NL JVP, Trachea Midline Respiratory: - - Mild increased work of breathing with bipap in place. R lung with crackles and rhonchorous sounds throughout. L lung clear. Cardiovascular: NL Sounds; No Murmurs; No JVD, RRR, - - Trace LE edema Abdominal: NL Sounds; No Tenderness; No Distention, No Hepatosplenomegaly Extremities: No Clubbing, Cyanosis Neurological: Alert and Oriented x 3 Result Diagrams: 01/17/19 05:13 01/17/19 05:13 Microbiology and Other Data: Microbiology 01/11/19 10:25 Aerobic Blood Culture - Preliminary Blood Venous No Growth Day 3 Anaerobic Blood Culture - Preliminary No Growth Day 3 01/08/19 15:33 Aerobic Blood Culture - Final Blood Venous No Growth Day 5 Anaerobic Blood Culture - Final No Growth Day 5 01/08/19 15:33 Aerobic Blood Culture - Final Blood Venous No Growth Day 5 Anaerobic Blood Culture - Final No Growth Day 5 01/11/19 13:15 Gram Stain - Final Sputum Sputum Culture - Final Stenotrophomas Maltophilia YEAST 01/11/19 10:25 Urine Culture - Final Urine No Growth (<1,000 CFU/mL) 01/09/19 04:15 Gram Stain - Final Sputum Sputum Culture - Final Stenotrophomas Maltophilia 01/08/19 21:00 Urine Culture - Final Urine No Growth (<1,000 CFU/mL) 01/08/19 21:00 Legionella Urinary Antigen - Final Urine Negative Legionella Antigen Streptococcus pneumoniae Ag Screen - Final Negative S. pneumo Antigen Diagnostic Imaging: Patient Name: CRYSTAL SETHI Medical Record#: [id number] Ordering Physician: Jada Avila MD Acct.#: [id number] : 1940 Age: 78 Sex: M Location: [facility] Exam Date: 01/12/19819 ADM Status: ADM IN Order Information: CHEST AP OR PORT Accession Number: [id number] CPT: 46709 Indication: Pneumonia. Single frontal view of the chest performed at 0827 hours was reviewed. Comparison is made with previous exam dated January 10, 2017. Cardiomegaly is noted. There may be airspace disease in left base which may represent pneumonia. Tortuous descending aorta is noted. Right lung field is clear. IMPRESSION: SUGGESTION OF LEFT LOWER LOBE PNEUMONIA. Assess/Plan/Problems-Billing Assessment: This is a 78 year old male with history of COPD, heart failure, chronic pain and rapidly progressive deconditioning that presents with encephalopathic changes and weakness after being discahrged from rehab 6 days prior to admission , initially in ICU for vapotherm, now downgraded to floor. - Patient Problems (1) HERMILO (acute kidney injury) Comment: - No improvement; likely in setting of bactim use; now with decreased urine output, dark urine - d/c bactim and start levaquin - Nephrology consulted; following - Check CPK, UA - Continue lasix (2) Chronic systolic congestive heart failure Comment: - Acutely decompensated, worsened by minimal IVF administration in setting of HERMILO with decreased urine output - Pt with crackles throughout R lung, CXR with pulm edema, BNP elevated - Will restart IV lasix, starting with 40 mg today, tomorrow a.m. - I/O, daily weights - Continue BB (3) Pneumonia Comment: - LLL with evidence of airspace disease and sputum with stenotrophomas maltophilia, sensitive to levaquin and bactrim - Patient has had bactrim x4 days; will d/c in setting of HERMILO - Start Levaquin now; hold citalopram and monitor for QT prolongation with daily EKG - Continue prednisone; will decrease to 10mg x5d, then 5mg x5d, then d/c - Low grade fevers resolved, still with leukocytosis, which is improving - Continue to trend (4) Acute on chronic respiratory failure with hypoxia and hypercapnia Comment: - With metabolic encephalopathy, now resolved with appropriate oxygenation - 2/2 COPD, acutely decompensated systolic HF and PNA - Restart IV lasix at 40 IV daily - Wean off bipap and then supplemental O2 via NC prn while awake - NIV at night - Nebs, inhalers, pulm toilet (5) Atrial fibrillation Comment: - Controlled on Multaq 400mg BID - Eliquis 5 mg BID for AC - Continue to monitor (6) CAD (coronary artery disease) Comment: - Continue metoprolol and lipitor (7) BPH (benign prostatic hyperplasia) Comment: - Continue finasteride and ellison (8) Chronic pain Comment: - Continue PRN pain meds and monitor for sedation (9) Depression Comment: -Continue wellbutrin -Hold celexa while on lavaquin (10) INDIGO (obstructive sleep apnea) Comment: - Continue BiPAP with sleep, reinforce compliance (11) Neurogenic bladder Comment: - Continue ellison, usually straight cath's at home (12) DVT prophylaxis Comment: - On Eliquis (13) Full code status Comment: - Per note from Dr. Avila, she had extensive conversation with patient's that he remains full code with all interventions requested, also noted consult with Dr. Clemens from Palliative care - Continue full code status Status and Disposition: Inpatient, fair to guarded. Will need rehab, referrals out.
--- NOTE | 2019-01-17 14:59 | CONSULT ---
Consult Consult: Consult requested for HERMILO & Fluid overload. Consult requested by Suzanna Julian Attending: Hospitalist Suzanna Julian Performed by Dr. Abhay Aguilar, [facility] Nephrology 01/17/2019 78 year old WM, admitted with SOB. Has Lt LL PNA, +ve sputum for S. Malatophilia , sensitive to Levoflox & Bactrim, started on Bactrim IV since 01/13 On admission had evidence of fluid overload Rx with IV Lasix, but as sCr worsened, Lasix was put on hold. BNP on admission was 990 improved with diuretic 440, today went back up 1250 Patient had confusion ~ possibly metabolic encephalopathy, improved with oxygenation. sCr baseline 0.5-0.6. sCr went up to 0.78~01/11 to 1.45~01/12 & wasnt checked for 2 days On 01/15 sCr 1.69--->1.57~01/16 & today 1.62. BUN has been creeping up too. UA 01/11 -ve Ptn & RBCs Patient had multiple hypotensive episodes on 01/12 as low as 70-80 SBP. CXR~01/12 showed PNA, but repeat CXR today showed bibasilar opacities and small BL PLEF & Cardiomegally At home on Lasix 40 daily Feels Ok, kept dozing off while talking to him I interviewed and examined him in front of his !! PMH: COPD CHF Normal baseline sCr HTN Dyslipidemia Minimal Proteinuria AFib on Multaq & Eliquis. CAD BPH INDIGO HomeMeds: Medication Instructions Recorded Confirmed Type Omeprazole CAP Albuterol Albuterol Multivitamin Dutasteride Apixaban Ferrous Furosemide Rosuvastatin Umeclidinium Acetaminophen Bupropion Citalopram Fluticasone Gabapentin Gabapentin Metoprolol Ondansetron Sennosides Sucralfate oxyCODONE/ Hospital Meds: Acetaminophen Albuterol Alprazolam Apixaban 5 BID ASA Atorvastatin Bupropion Citalopram Docusate Dronedarone Ferrous Finasteride Gabapentin Gabapentin Trimethoprim/Sulfamethoxazole (460 mg) IVPB TID Metoprolol Mometasone Ondansetron H Oxycodone Pantoprazole Polyethylene Polyethylene Prednisone Senna Sucralfate Tiotropium Allergies: Iodinated Contrast Social History,Family History &Surgical History:Reviewed 12-Point Review of Systemobtained: Negative exceptpertinent positives: Constitutional no fever no weight loss Eyes No blurry vision CV shortness of breath at rest, no chest pain no syncope but mild and improving edema Resp shortness of breath at rest no cough has wheezing G.I. no diarrhea no nausea no vomiting no pain no blood per rectum no burning no obstruction symptoms Skin no rash Neurology No seizures or neurologic deficit Endocrine no diabetes Hem/Lymp no bleeding no lymph nodes Immun/Allergy no allergic actions Musculoskeletal no Arthritis no swelling no pain Psych no anxiety no depression no hallucination Objective: 10 Pointmulti systemexam: Negative except pertinent positive Vital Signs: Vital Signs Temp 98.8 F 01/17/19 12:15 Pulse 83 01/17/19 12:15 Resp 20 01/17/19 12:15 BP 106/61 01/17/19 12:15 Pulse Ox 91 01/17/19 12:15 Intake & Output 01/16/19 01/17/19 01/17/19 18:59 06:59 18:59 Intake Total 0 0 Output Total 150 0 0 Balance -150 0 0 Weight 114.759 kg Intake: Oral 0 0 Output: Urine 0 Osorio 150 0 0 Constitutional Alert Oriented x 3 Abdomen SoftAbdomen No Ascites Heart: NSR,No LE Edema, No murmur Lungs: Bibasilar crackles Extremities: no edema, no rash Laboratory Reviewed ABG pH 7.51 (7.35-7.45) H 01/10/19 10:45 ABG HCO3 39.4 mmol/L (19-31) H 01/10/19 10:45 Sodium 133 mmol/L (135-145) L 01/17/19 05:13 Potassium 4.3 mmol/L (3.5-5.0) 01/17/19 05:13 BUN 34 mg/dL (6-24) H 01/17/19 05:13 Creatinine 1.62 mg/dL (0.67-1.17) H 01/17/19 05:13 Calcium 8.4 mg/dL (8.6-10.3) L 01/17/19 05:13 Magnesium 2.2 mg/dL (1.9-2.7) 01/12/19 04:42 AST 20 U/L (13-39) 01/15/19 12:56 ALT 12 U/L (7-52) 01/15/19 06:50 Triglycerides 90 mg/dL 01/10/19 11:00 Cholesterol 98 mg/dL 01/10/19 11:00 LDL Cholesterol 47 mg/dL 01/10/19 11:00 Assessment and Plan: HERMILO, but sCr is stable for few days. HERMILO is multi-factorial: hyotension, hypoxia & mainly Bactrim. Bactrim can cause AIN, ATN and can falsely increase sCr w/o affecting BUN, as it competes with Creatinine tubular secretion. Bactrim better be avoided in HERMILO. Check CPK- dark urine & +ve Blood on UA but with -ve RBCs from 01/11 Repeat UA *Lyts Ok *BP Ok, stable now *Fluid overload: Start Lasix 40 mg IVP and monitor UOP, if response is sub optimal may try 60 mg IVP
[2019-01-17 18:12] LABS: Magnesium 2.2 mg/dL (1.9-2.7)
[2019-01-17] MEDS: Levofloxacin 750 MG IVPREMIX(* 750 MG/150 ML BAG IVPB SCH (20:03)
[2019-01-17] MEDS: Ondansetron INJ* 2 MG/ML VIAL IV PRN (20:03)
[2019-01-17] MEDS: Gabapentin CAP(*) 300 MG PO SCH (20:03)
[2019-01-17 20:19] LABS: Urine Bacteria Absent (Absent); Urine Red Blood Cell 3+(>10/hpf) (Absent); Urine Squamous Epithelial Cell Present (Absent); Urine White Blood Cell 3+(>20/hpf) (Absent)
[2019-01-17] MEDS ORDERED: Levofloxacin 750 MG IVPREMIX(* 750 MG/150 ML BAG IVPB SCH (21:00)
[2019-01-17 22:08] LABS: Urine Appearance Turbid; Urine Bilirubin Negative (Negative); Urine Blood 3+ (Negative); Urine Glucose Negative (Negative); Urine Ketones Negative (Negative); Urine Nitrite Negative (Negative); Urine Protein 2+(100 mg/dL) (Negative); Urine Specific Gravity 1.018 (1.010-1.030); Urine Urobilinogen Negative (Negative)
[2019-01-17 22:27] LABS: Urine Color Amber
[2019-01-18 04:21] LABS: ABS Lymphocytes 1.5 10^3/ul (1.0-4.8); ABS Monocytes 1.1 10^3/ul (0-0.8); ABS Neutrophils 9.1 10^3/ul (1.5-7.7); Hematocrit 26 % (42-52); Hemoglobin 8.8 g/dL (14.0-18.0); Lymphocyte % 12.9 %; Mean Corpuscular HGB Conc 34 g/dL (31-36); Mean Corpuscular Hemoglobin 32 pg (27-31); Mean Corpuscular Volume 95 fL (80-94); Mean Platelet Volume 6.7 fL (7.4-10.4); Platelet Count 229 10^3/uL (150-450); Red Blood Count 2.76 10^6 /uL (4.18-5.48); Red Cell Distribution Width 14 % (10-15); White Blood Count 11.8 10^3/uL (3.5-10.8)
[2019-01-18 04:37] LABS: Albumin 2.9 g/dL (3.2-5.2); Albumin/Globulin Ratio 1.3 (1-3); BUN/Creatinine Ratio 21.3 (8-20); Calcium 8.5 mg/dL (8.6-10.3); EGFR Non-African American 39.7 (>60); Globulin 2.2 g/dL (2-4); Potassium 4.2 mmol/L (3.5-5.0); Total Bilirubin 0.2 mg/dL (0.2-1.0); Total Protein 5.1 g/dL (6.4-8.9)
[2019-01-18] MEDS: Sucralfate TAB* 1 GM PO SCH ×4 (07:55→21:53)
[2019-01-18] MEDS: Atorvastatin* 40 MG TAB PO SCH (08:56)
[2019-01-18] MEDS: Metoprolol Succinate XL TAB* 25 MG PO SCH (08:56)
[2019-01-18] MEDS: predniSONE TAB* 10 MG PO SCH (08:56)
[2019-01-18] MEDS: oxyCODONE/Acetamin 5/325 MG* TAB PO PRN ×2 (08:56→21:53)
[2019-01-18] MEDS: Gabapentin CAP(*) 100 MG PO SCH ×2 (08:56→14:23)
[2019-01-18] MEDS: Apixaban* 5 MG TAB PO SCH ×2 (08:57→21:55)
[2019-01-18] MEDS: Pantoprazole TAB * 40 MG TAB PO SCH (08:57)
[2019-01-18] MEDS: Docusate CAP* 100 MG PO SCH ×2 (08:57→21:53)
[2019-01-18] MEDS: Aspirin 81 mg CHEW TAB* 81 MG TAB.CHEW PO SCH (08:57)
[2019-01-18] MEDS: Finasteride TAB* 5 MG PO SCH (08:57)
[2019-01-18] MEDS: Ferrous Sulfate TAB* 325 MG PO SCH ×2 (08:57→21:53)
[2019-01-18] MEDS ORDERED: Citalopram TAB* 20 MG PO SCH (09:00)
[2019-01-18] MEDS ORDERED: Furosemide IV* 10 MG/ML VIAL (40 MG) IV ONE (09:00)
[2019-01-18] MEDS: BuPROPion XL* 150 MG TAB.XL PO SCH (09:33)
[2019-01-18] MEDS: Dronedarone TAB* 400 MG PO SCH ×2 (09:33→19:26)
[2019-01-18] MEDS: Mometasone/Formoter 200/5 MDI INH SCH ×2 (11:42→19:19)
[2019-01-18] MEDS: SPIRIVA Respimat* (tiotropium) 2.5 mcg/inh Inhaler INH SCH (11:42)
--- NOTE | 2019-01-18 13:12 | PN ---
Subjective Date of Service: 01/18/19 Interval History: Pt was transferred to ICU yesterday. now comfortable on intermittent BIPAP, alert and conversational, but feels tired. Objective Active Medications: Acetaminophen (Tylenol Tab*) 650 mg PO Q4H PRN PRN Reason: MILD PAIN or TEMP > 100.4 Last Admin: 01/13/19 02:30 Dose: 650 mg Albuterol (Ventolin 2.5 Mg/3 Ml Neb.Damaris*) 2.5 mg INH [id number] AWAKE PRN PRN Reason: sob/wheezing Last Admin: 01/13/19 07:53 Dose: 2.5 mg Alprazolam (Xanax Tab*) 0.25 mg PO BID PRN PRN Reason: ANXIETY Last Admin: 01/16/19 14:36 Dose: 0.25 mg Apixaban (Eliquis*) 5 mg PO BID REPLACED BY [facility] Last Admin: 01/18/19 08:57 Dose: 5 mg Aspirin (Aspirin 81 Mg Chew Tab*) 81 mg PO DAILY REPLACED BY [facility] Last Admin: 01/18/19 08:57 Dose: 81 mg Atorvastatin Calcium (Lipitor*) 40 mg PO DAILY REPLACED BY [facility]; Protocol Last Admin: 01/18/19 08:56 Dose: 40 mg Bupropion HCl (Wellbutrin Xl *) 150 mg PO DAILY REPLACED BY [facility] Last Admin: 01/18/19 09:33 Dose: 150 mg Docusate Sodium (Colace Cap*) 100 mg PO BID ARTI Last Admin: 01/18/19 08:57 Dose: 100 mg Dronedarone (Multaq Tab*) 400 mg PO BID WITH MEALS REPLACED BY [facility] Last Admin: 01/18/19 09:33 Dose: 400 mg Ferrous Sulfate (Ferrous Sulfate Tab*) 325 mg PO BID ARTI Last Admin: 01/18/19 08:57 Dose: 325 mg Finasteride (Proscar Tab*) 5 mg PO DAILY REPLACED BY [facility]; Protocol Last Admin: 01/18/19 08:57 Dose: 5 mg Furosemide (Lasix Iv*) 40 mg IV DAILY REPLACED BY [facility] Gabapentin (Neurontin Cap(*)) 100 mg PO 0800,1400 REPLACED BY [facility] Last Admin: 01/18/19 08:56 Dose: 100 mg Gabapentin (Neurontin Cap(*)) 300 mg PO BEDTIME REPLACED BY [facility] Last Admin: 01/17/19 20:03 Dose: 300 mg Levofloxacin/Dextrose (Levaquin 750 Mg Ivpremix(*)) 750 mg in 150 mls @ 100 mls /hr IVPB Q24H REPLACED BY [facility]; Protocol Last Admin: 01/17/19 20:03 Dose: 100 mls/hr Metoprolol Succinate (Toprol Xl Tab*) 50 mg PO DAILY REPLACED BY [facility] Last Admin: 01/18/19 08:56 Dose: 50 mg Metoprolol Tartrate (Lopressor Iv*) 5 mg IV Q6H PRN PRN Reason: HR>120 Last Admin: 01/10/19 09:33 Dose: 5 mg Mometasone Furoate/Formoterol Fumar (Dulera 200/5 Mdi*) 2 puff INH BID REPLACED BY [facility] Last Admin: 01/18/19 11:42 Dose: Not Given Ondansetron HCl (Zofran Inj*) 4 mg IV Q6H PRN PRN Reason: NAUSEA Last Admin: 01/17/19 20:03 Dose: 4 mg Oxycodone/Acetaminophen (Percocet 5/325 Tab*) 1 tab PO Q3H PRN PRN Reason: PAIN - SEVERE Last Admin: 01/18/19 08:56 Dose: 1 tab Pantoprazole Sodium (Protonix Tab*) 40 mg PO DAILY REPLACED BY [facility] Last Admin: 01/18/19 08:57 Dose: 40 mg Polyethylene Glycol/Electrolytes (Miralax*) 17 gm PO DAILY PRN PRN Reason: CONSTIPATION Last Admin: 01/16/19 09:08 Dose: 17 gm Polyethylene Glycol/Electrolytes (Miralax*) 17 gm PO DAILY PRN PRN Reason: CONSTIPATION Prednisone (Deltasone Tab*) 10 mg PO DAILY REPLACED BY [facility] Last Admin: 01/18/19 08:56 Dose: 10 mg Senna (Senokot 8.6 Mg Tab*) 1 tab PO DAILY PRN PRN Reason: CONSTIPATION Last Admin: 01/16/19 09:09 Dose: 1 tab Sucralfate (Carafate*) 1 gm PO ACHS REPLACED BY [facility] Last Admin: 01/18/19 11:27 Dose: 1 gm Tiotropium [place] (Spiriva Respimat 2.5 Mcg) 2 puff INH DAILY REPLACED BY [facility] Last Admin: 01/18/19 11:42 Dose: Not Given Vital Signs - 8 hr 01/18/19 01/18/19 01/18/19 06:00 06:02 07:00 Temperature 99.5 F 99.5 F Pulse Rate 89 87 Respiratory 8 23 16 Rate Blood Pressure 126/73 (mmHg) O2 Sat by Pulse 96 97 Oximetry 01/18/19 01/18/19 01/18/19 08:00 08:50 08:56 Temperature 99.5 F Pulse Rate 94 Respiratory 23 22 14 Rate Blood Pressure 128/71 (mmHg) O2 Sat by Pulse 97 Oximetry 01/18/19 01/18/19 01/18/19 09:00 10:00 10:05 Temperature 99.3 F 99.5 F 99.5 F Pulse Rate 97 91 89 Respiratory 22 23 22 Rate Blood Pressure 126/69 111/68 (mmHg) O2 Sat by Pulse 91 94 96 Oximetry 01/18/19 01/18/19 01/18/19 11:00 11:01 12:00 Temperature 99.5 F 99.5 F 99.5 F Pulse Rate 88 89 91 Respiratory 22 19 20 Rate Blood Pressure 113/69 107/53 (mmHg) O2 Sat by Pulse 94 95 96 Oximetry Oxygen Devices in Use Now: BiPAP Appearance: 78 yo M in nAD, AAOx3 Eyes: No Scleral Icterus, PERRLA Ears/Nose/Mouth/Throat: NL Teeth, Lips, Gums, Mucous Membranes Moist Neck: NL Appearance and Movements; NL JVP, Trachea Midline Respiratory: Symmetrical Chest Expansion and Respiratory Effort, - - faint bibasiliar crackles Cardiovascular: NL Sounds; No Murmurs; No JVD, RRR Abdominal: NL Sounds; No Tenderness; No Distention Lymphatic: No Cervical Adenopathy Extremities: No Clubbing, Cyanosis, - - trace pedal edema b/l Skin: No Nodules or Sclerosis Neurological: Alert and Oriented x 3, NL Muscle Strength and Tone Result Diagrams: 01/18/19 04:06 01/18/19 04:06 Microbiology and Other Data: Microbiology 01/11/19 10:25 Aerobic Blood Culture - Preliminary Blood Venous No Growth Day 3 Anaerobic Blood Culture - Preliminary No Growth Day 3 01/08/19 15:33 Aerobic Blood Culture - Final Blood Venous No Growth Day 5 Anaerobic Blood Culture - Final No Growth Day 5 01/08/19 15:33 Aerobic Blood Culture - Final Blood Venous No Growth Day 5 Anaerobic Blood Culture - Final No Growth Day 5 01/11/19 13:15 Gram Stain - Final Sputum Sputum Culture - Final Stenotrophomas Maltophilia YEAST 01/11/19 10:25 Urine Culture - Final Urine No Growth (<1,000 CFU/mL) 01/09/19 04:15 Gram Stain - Final Sputum Sputum Culture - Final Stenotrophomas Maltophilia 01/08/19 21:00 Urine Culture - Final Urine No Growth (<1,000 CFU/mL) 01/08/19 21:00 Legionella Urinary Antigen - Final Urine Negative Legionella Antigen Streptococcus pneumoniae Ag Screen - Final Negative S. pneumo Antigen Diagnostic Imaging: Patient Name: CRYSTAL CAMPOS Medical Record#: [id number] Ordering Physician: Jada Avila MD Acct.#: [id number] : 1940 Age: 78 Sex: M Location: [facility] Exam Date: 01/12/19819 ADM Status: ADM IN Order Information: CHEST AP OR PORT Accession Number: [id number] CPT: 65431 Indication: Pneumonia. Single frontal view of the chest performed at 0827 hours was reviewed. Comparison is made with previous exam dated January 10, 2017. Cardiomegaly is noted. There may be airspace disease in left base which may represent pneumonia. Tortuous descending aorta is noted. Right lung field is clear. IMPRESSION: SUGGESTION OF LEFT LOWER LOBE PNEUMONIA. Assess/Plan/Problems-Billing Assessment: This is a 78 year old male with history of COPD, heart failure, chronic pain and rapidly progressive deconditioning that presents with encephalopathic changes and weakness after being discahrged from rehab 6 days prior to admission , initially in ICU for vapotherm, now downgraded to floor. - Patient Problems (1) HERMILO (acute kidney injury) Comment: - No improvement; likely in setting of bactrim use - cont levaquin - Nephrology consulted; following - Continue lasix IV daily (2) Pneumonia Comment: - LLL with evidence of airspace disease and sputum with stenotrophomas maltophilia, sensitive to levaquin and bactrim - Patient had bactrim x4 days, in setting of HERMILO switched to Levaquin - hold citalopram and monitor for QT prolongation with daily EKG - Continue prednisone taper - Low grade fevers resolved, still with leukocytosis, which is improving - Continue to trend (3) Acute on chronic respiratory failure with hypoxia and hypercapnia Comment: - With metabolic encephalopathy, now resolving with appropriate oxygenation - 2/2 COPD, acutely decompensated systolic HF and PNA - contIV lasix at 40 IV daily - Wean off bipap and then supplemental O2 via NC prn while awake - NIV at night - Nebs, inhalers, pulm toilet (4) Atrial fibrillation Comment: - Controlled on Multaq 400mg BID - Eliquis 5 mg BID for AC - Continue to monitor (5) CAD (coronary artery disease) Comment: - Continue metoprolol and lipitor (6) Depression Comment: -Continue wellbutrin -Hold celexa while on lavaquin (7) Neurogenic bladder Comment: - Continue ellison, usually straight cath's at home (8) Anemia Comment: acute on chronic, with no signs of bleeding will check stool hemoccult (9) DVT prophylaxis Comment: - On Eliquis Status and Disposition: Inpatient, fair to guarded. Will need rehab, referrals out.
[2019-01-18] MEDS: Levofloxacin 750 MG IVPREMIX(* 750 MG/150 ML BAG IVPB SCH (19:26)
[2019-01-18] MEDS: Gabapentin CAP(*) 300 MG PO SCH (21:54)
--- NOTE | 2019-01-18 22:54 | PN ---
Progress Note - Progress Note Date of Service: 01/18/19 Note: Nephro f/u note Performed by Dr. Abhay Aguilar, [facility] Nephrology 01/18/2019 Lt LL PNA +ve sputum for S. Malatophilia. Switched to Levoflox from Bactrim in count of HERMILO. Had fluid overload with dropping UOP and dark urine despite Osorio. BNP 1250. Osorio was exchanged and 1.5 L drained immediately & 3L in 24Hrs. sCr about same 1.57--->1.62--->1.69. Sleepy, comfortable, no c/c Of note, sCr baseline 0.5-0.6. UA -ve Ptn & RBCs Last CXR showed bibasilar opacities and small BL PLEF & Cardiomegally, started on Lasix 40 IV qd Hospital Meds: Acetaminophen (Tylenol Tab*) 650 mg PO Q4H PRN PRN Reason: MILD PAIN or TEMP > 100.4 Last Admin: 01/13/19 02:30 Dose: 650 mg Albuterol (Ventolin 2.5 Mg/3 Ml Neb.Damaris*) 2.5 mg INH [id number] AWAKE PRN PRN Reason: sob/wheezing Last Admin: 01/13/19 07:53 Dose: 2.5 mg Alprazolam (Xanax Tab*) 0.25 mg PO BID PRN PRN Reason: ANXIETY Last Admin: 01/16/19 14:36 Dose: 0.25 mg Apixaban (Eliquis*) 5 mg PO BID [facility] Last Admin: 01/18/19 21:55 Dose: 5 mg Aspirin (Aspirin 81 Mg Chew Tab*) 81 mg PO DAILY [facility] Last Admin: 01/18/19 08:57 Dose: 81 mg Atorvastatin Calcium (Lipitor*) 40 mg PO DAILY [facility]; Protocol Last Admin: 01/18/19 08:56 Dose: 40 mg Bupropion HCl (Wellbutrin Xl *) 150 mg PO DAILY [facility] Last Admin: 01/18/19 09:33 Dose: 150 mg Docusate Sodium (Colace Cap*) 100 mg PO BID [facility] Last Admin: 01/18/19 21:53 Dose: 100 mg Dronedarone (Multaq Tab*) 400 mg PO BID WITH MEALS [facility] Last Admin: 01/18/19 19:26 Dose: 400 mg Ferrous Sulfate (Ferrous Sulfate Tab*) 325 mg PO BID [facility] Last Admin: 01/18/19 21:53 Dose: 325 mg Finasteride (Proscar Tab*) 5 mg PO DAILY [facility]; Protocol Last Admin: 01/18/19 08:57 Dose: 5 mg Furosemide (Lasix Iv*) 40 mg IV DAILY [facility] Gabapentin (Neurontin Cap(*)) 100 mg PO 0800,1400 [facility] Last Admin: 01/18/19 14:23 Dose: 100 mg Gabapentin (Neurontin Cap(*)) 300 mg PO BEDTIME [facility] Last Admin: 01/18/19 21:54 Dose: 300 mg Levofloxacin/Dextrose (Levaquin 750 Mg Ivpremix(*)) 750 mg in 150 mls @ 100 mls /hr IVPB Q24H [facility]; Protocol Last Admin: 01/18/19 19:26 Dose: 100 mls/hr Metoprolol Succinate (Toprol Xl Tab*) 50 mg PO DAILY [facility] Last Admin: 01/18/19 08:56 Dose: 50 mg Metoprolol Tartrate (Lopressor Iv*) 5 mg IV Q6H PRN PRN Reason: HR>120 Last Admin: 01/10/19 09:33 Dose: 5 mg Mometasone Furoate/Formoterol Fumar (Dulera 200/5 Mdi*) 2 puff INH BID [facility] Last Admin: 01/18/19 19:19 Dose: Not Given Ondansetron HCl (Zofran Inj*) 4 mg IV Q6H PRN PRN Reason: NAUSEA Last Admin: 01/17/19 20:03 Dose: 4 mg Oxycodone/Acetaminophen (Percocet 5/325 Tab*) 1 tab PO Q3H PRN PRN Reason: PAIN - SEVERE Last Admin: 01/18/19 21:53 Dose: 1 tab Pantoprazole Sodium (Protonix Tab*) 40 mg PO DAILY [facility] Last Admin: 01/18/19 08:57 Dose: 40 mg Polyethylene Glycol/Electrolytes (Miralax*) 17 gm PO DAILY PRN PRN Reason: CONSTIPATION Last Admin: 01/16/19 09:08 Dose: 17 gm Polyethylene Glycol/Electrolytes (Miralax*) 17 gm PO DAILY PRN PRN Reason: CONSTIPATION Prednisone (Deltasone Tab*) 10 mg PO DAILY [facility] Last Admin: 01/18/19 08:56 Dose: 10 mg Senna (Senokot 8.6 Mg Tab*) 1 tab PO DAILY PRN PRN Reason: CONSTIPATION Last Admin: 01/16/19 09:09 Dose: 1 tab Sucralfate (Carafate*) 1 gm PO ACHS ARTI Last Admin: 01/18/19 21:53 Dose: 1 gm Tiotropium [place] (Spiriva Respimat 2.5 Mcg) 2 puff INH DAILY ARTI Last Admin: 01/18/19 11:42 Dose: Not Given Objective: Vital Signs Temp 99.7 F 01/18/19 22:00 Pulse 89 01/18/19 22:00 Resp 22 01/18/19 22:00 BP 117/65 01/18/19 22:00 Pulse Ox 92 01/18/19 22:00 Intake & Output 01/18/19 01/18/19 01/19/19 06:59 18:59 06:59 Intake Total 427 884 Output Total 3430 1235 50 Balance -3003 -351 -50 Weight 114.759 kg Intake: IV Fluids 187 BACTRIM 35 NS (0.9%) 152 IVPB 54 NS (0.9%) 54 Oral 240 830 Output: Osorio 1980 1235 50 Residual 1450 Osorio 16 Fr 1450 Other: Estimated Void Large # Bowel Movements 1 Estimated Stool Amount Medium # Voids 1 Constitutional Alert Oriented x 2 Abdomen SoftAbdomen No Ascites Heart: NSR,No LE Edema, No murmur Lungs: decreased crackles Extremities: no edema, no rash Laboratory Reviewed ABG pH 7.51 (7.35-7.45) H 01/10/19 10:45 ABG HCO3 39.4 mmol/L (19-31) H 01/10/19 10:45 Sodium 132 mmol/L (135-145) L 01/18/19 04:06 Potassium 4.2 mmol/L (3.5-5.0) 01/18/19 04:06 BUN 36 mg/dL (6-24) H 01/18/19 04:06 Creatinine 1.69 mg/dL (0.67-1.17) H 01/18/19 04:06 Calcium 8.5 mg/dL (8.6-10.3) L 01/18/19 04:06 Magnesium 2.2 mg/dL (1.9-2.7) 01/17/19 16:50 AST 18 U/L (13-39) 01/18/19 04:06 ALT 10 U/L (7-52) 01/18/19 04:06 Triglycerides 90 mg/dL 01/10/19 11:00 Cholesterol 98 mg/dL 01/10/19 11:00 LDL Cholesterol 47 mg/dL 01/10/19 11:00 Assessment and Plan: *HERMILO, sCr is stable. HERMILO multi-factorial~see yesterday's note. A component of obstructive uropathy was found yesterday, s/p glynn Osorio. *Fluid overload: Improving, as he had 3L -ve fluid balance yesterday but BNP >1, 300. Continue Lasix, may need to decrease if sCr starts going back up! *Off Bactrim. *Lyts Ok *BP Ok
[2019-01-19 05:18] LABS: ABS Basophils 0.1 10^3/ul (0-0.2); ABS Eosinophils 0.1 10^3/ul (0-0.6); ABS Lymphocytes 1.8 10^3/ul (1.0-4.8); ABS Monocytes 1.5 10^3/ul (0-0.8); ABS Neutrophils 9.3 10^3/ul (1.5-7.7); Eosinophil % 0.9 %; Hematocrit 27 % (42-52); Mean Corpuscular HGB Conc 34 g/dL (31-36); Mean Corpuscular Hemoglobin 32 pg (27-31); Mean Corpuscular Volume 95 fL (80-94); Mean Platelet Volume 6.5 fL (7.4-10.4); Platelet Count 243 10^3/uL (150-450); Red Blood Count 2.81 10^6 /uL (4.18-5.48); Red Cell Distribution Width 14 % (10-15); White Blood Count 12.8 10^3/uL (3.5-10.8)
[2019-01-19 05:35] LABS: BUN/Creatinine Ratio 25.2 (8-20); Calcium 8.9 mg/dL (8.6-10.3); EGFR African American 51.5 (>60); EGFR Non-African American 42.5 (>60); Potassium 4.5 mmol/L (3.5-5.0)
[2019-01-19] MEDS: Mometasone/Formoter 200/5 MDI INH SCH ×2 (07:47→20:14)
[2019-01-19] MEDS: SPIRIVA Respimat* (tiotropium) 2.5 mcg/inh Inhaler INH SCH (07:47)
[2019-01-19] MEDS: Sucralfate TAB* 1 GM PO SCH ×4 (08:10→19:38)
--- NOTE | 2019-01-19 11:18 | PN ---
Date of Service: 01/19/19 Critical Care Services: called for lethargy patient lethargic but AO times 3 with noxious stimuli. states did not sleep till 4 am last night Ammonia levels elevated this AM. Has had similar findings in the past. No liver issues per family. Vital Signs: Temp Pulse Resp BP SpO2 FiO2 99.5 F 74 29 108/52 96 100 01/19/19 10:03 01/19/19 10:03 01/19/19 10:03 01/19/19 10:03 01/19/19 10:03 01/19 08:31 Physical Exam: Gen: remains on Biap. AO times 3 with noxious stimuli. Obese. HEENT\=- EOMI. Lungs: Decreased Cardiac: RRR Abdomen: + BS's, Soft, NTP. Extremities: TRACIE Neuro: No focal SUPPLY TECH deficits Fluid Balance (Past 24 Hours): I= O= Net Intake & Output 01/17/19 01/18/19 01/19/19 01/20/19 06:59 06:59 06:59 06:59 Intake Total 0 427 1426 Output Total 150 3467 1745 320 Balance -150 -3040 -319 -320 Weight 253 lb 253 lb 247 lb 5.738 oz Intake: IV Fluids 187 22 BACTRIM 35 NS (0.9%) 152 22 IVPB 154 Cefepine 100 NS (0.9%) 54 Oral 0 240 1250 Output: Urine 0 Osorio 150 2017 1745 320 Residual 1450 Osorio 16 Fr 1450 Other: Estimated Void Large # Bowel Movements 1 Estimated Stool Amount Medium # Voids 1 Labs: Laboratory Results - last 24 hr 01/19/19 01/19/19 01/19/19 05:03 05:03 09:05 WBC 12.8 H RBC 2.81 L Hgb 9.0 L Hct 27 L MCV 95 H MCH 32 H MCHC 34 RDW 14 Plt Count 243 MPV 6.5 L Neut % (Auto) 72.4 Lymph % (Auto) 14.0 [place] % (Auto) 11.8 Eos % (Auto) 0.9 Baso % (Auto) 0.9 Absolute Neuts (auto) 9.3 H Absolute Lymphs (auto) 1.8 Absolute Monos (auto) 1.5 H Absolute Eos (auto) 0.1 Absolute Basos (auto) 0.1 Absolute Nucleated RBC 0.0 Nucleated RBC % 0.0 Patient Temperature Not Reportable ABG pH 7.38 ABG pH (Temp Correct) Not Reportable ABG pCO2 75 H* ABG pCO2 (Temp Corrct Not Reportable ABG pO2 99 ABG pO2 (Temp Correct Not Reportable ABG HCO3 36.9 H ABG O2 Saturation 100.0 H ABG Base Excess 15.4 H Respiration Rate Not Reportable O2 Delivery Device Bipap Ventilator Type Not Reportable Vent Mode Not Reportable FiO2 100 Inspiratory Time Not Reportable PEEP Not Reportable Pressure Support Not Reportable Pressure Control Not Reportable EPAP 8 IPAP 18 BiPAP Not Reportable Sodium 135 Potassium 4.5 Chloride 91 L Carbon Dioxide 40 H Anion Gap 4 BUN 40 H Creatinine 1.59 H Est GFR ( Amer) 51.5 Est GFR (Non-Af Amer) 42.5 BUN/Creatinine Ratio 25.2 H Glucose 85 Calcium 8.9 Ammonia 01/19/19 10:00 WBC RBC Hgb Hct MCV MCH MCHC RDW Plt Count MPV Neut % (Auto) Lymph % (Auto) [place] % (Auto) Eos % (Auto) Baso % (Auto) Absolute Neuts (auto) Absolute Lymphs (auto) Absolute Monos (auto) Absolute Eos (auto) Absolute Basos (auto) Absolute Nucleated RBC Nucleated RBC % Patient Temperature ABG pH ABG pH (Temp Correct) ABG pCO2 ABG pCO2 (Temp Corrct ABG pO2 ABG pO2 (Temp Correct ABG HCO3 ABG O2 Saturation ABG Base Excess Respiration Rate O2 Delivery Device Ventilator Type Vent Mode FiO2 Inspiratory Time PEEP Pressure Support Pressure Control EPAP IPAP BiPAP Sodium Potassium Chloride Carbon Dioxide Anion Gap BUN Creatinine Est GFR ( Amer) Est GFR (Non-Af Amer) BUN/Creatinine Ratio Glucose Calcium Ammonia 65 H Impression: ARF on CRF on chronic CPAP and NC JAVIER rate controlled on DOAC and Multaq Depression Neurogenic bladder HERMILO Sputum + for Stenotroph (01/11) Leucocytosis w/o left shift and on chronic steroids sCHF elevated ammonia levels Plan: add lactulose. may monitor Ammonia levels. has hx of high ammonia. Triggered by Meds/HERMILO? hold Levofloxocin 2/2 high ammonia. Would d/w ID coverage for Steno. Probably colonized. Already received Bactrim. continue to monitor renal functions wean steroids to off Rx for sCHF. Minimize IVF's ABG at patient's baseline. continue Bi-Pap /CPAP D/w Hospitalist. Hospitalist service to resume care tomorrow. Critical Care Time: 45
[2019-01-19] MEDS: Docusate CAP* 100 MG PO SCH ×2 (11:32→19:38)
[2019-01-19] MEDS: Dronedarone TAB* 400 MG PO SCH ×2 (11:32→18:28)
[2019-01-19] MEDS: Ferrous Sulfate TAB* 325 MG PO SCH ×2 (11:32→19:38)
[2019-01-19] MEDS: Atorvastatin* 40 MG TAB PO SCH (11:32)
[2019-01-19] MEDS: Aspirin 81 mg CHEW TAB* 81 MG TAB.CHEW PO SCH (11:32)
[2019-01-19] MEDS: Apixaban* 5 MG TAB PO SCH ×3 (11:32→19:38)
[2019-01-19] MEDS: BuPROPion XL* 150 MG TAB.XL PO SCH (11:32)
[2019-01-19] MEDS: Pantoprazole TAB * 40 MG TAB PO SCH (11:33)
[2019-01-19] MEDS: predniSONE TAB* 10 MG PO SCH ×2 (11:33→12:28)
[2019-01-19] MEDS: Finasteride TAB* 5 MG PO SCH (11:33)
[2019-01-19] MEDS: Metoprolol Succinate XL TAB* 25 MG PO SCH (11:33)
[2019-01-19] MEDS: Furosemide IV* 10 MG/ML VIAL (40 MG) IV SCH (11:57)
[2019-01-19 16:18] LABS: Urine Appearance Cloudy; Urine Bacteria Absent (Absent); Urine Bilirubin Negative (Negative); Urine Blood 3+ (Negative); Urine Color Yellow; Urine Glucose Negative (Negative); Urine Ketones Negative (Negative); Urine Nitrite Negative (Negative); Urine Protein Negative (Negative); Urine Red Blood Cell 3+(>10/hpf) (Absent); Urine Specific Gravity 1.012 (1.010-1.030); Urine Squamous Epithelial Cell Present (Absent); Urine Urobilinogen Negative (Negative); Urine White Blood Cell 3+(>20/hpf) (Absent)
[2019-01-19] MEDS: Metoprolol Tartrate IV* 1 MG/ML 5 ML VIAL IV PRN (19:38)
[2019-01-19] MEDS: oxyCODONE/Acetamin 5/325 MG* TAB PO PRN (19:38)
[2019-01-20 05:27] LABS: Hematocrit 28 % (42-52); Hemoglobin 9.2 g/dL (14.0-18.0); Mean Corpuscular HGB Conc 33 g/dL (31-36); Mean Corpuscular Hemoglobin 32 pg (27-31); Mean Corpuscular Volume 96 fL (80-94); Mean Platelet Volume 6.4 fL (7.4-10.4); Platelet Count 232 10^3/uL (150-450); Red Blood Count 2.92 10^6 /uL (4.18-5.48); Red Cell Distribution Width 14 % (10-15); White Blood Count 14.6 10^3/uL (3.5-10.8)
[2019-01-20 05:32] LABS: ABS Eosinophils 0.2 10^3/ul (0-0.6); ABS Lymphocytes 1.8 10^3/ul (1.0-4.8); ABS Monocytes 1.5 10^3/ul (0-0.8); ABS Neutrophils 11.4 10^3/ul (1.5-7.7); Eosinophil % 1.6 %; Lymphocyte % 11.8 %
[2019-01-20 05:40] LABS: BUN/Creatinine Ratio 26.5 (8-20); EGFR African American 61.6 (>60); EGFR Non-African American 50.9 (>60); Magnesium 1.9 mg/dL (1.9-2.7); Potassium 3.9 mmol/L (3.5-5.0)
[2019-01-20] MEDS: SPIRIVA Respimat* (tiotropium) 2.5 mcg/inh Inhaler INH SCH (07:30)
[2019-01-20] MEDS: Mometasone/Formoter 200/5 MDI INH SCH ×2 (07:30→20:10)
[2019-01-20] MEDS: Furosemide IV* 10 MG/ML VIAL (40 MG) IV SCH (09:10)
[2019-01-20] MEDS: Dronedarone TAB* 400 MG PO SCH ×2 (09:11→16:43)
[2019-01-20] MEDS: Metoprolol Succinate XL TAB* 25 MG PO SCH (09:12)
[2019-01-20] MEDS: Finasteride TAB* 5 MG PO SCH (09:13)
[2019-01-20] MEDS: Apixaban* 5 MG TAB PO SCH ×2 (09:13→19:59)
[2019-01-20] MEDS: Sucralfate TAB* 1 GM PO SCH ×4 (09:14→19:59)
[2019-01-20] MEDS: BuPROPion XL* 150 MG TAB.XL PO SCH (09:15)
[2019-01-20] MEDS: predniSONE TAB* 10 MG PO SCH (09:15)
[2019-01-20] MEDS: Docusate CAP* 100 MG PO SCH ×2 (09:16→19:59)
[2019-01-20] MEDS: Ferrous Sulfate TAB* 325 MG PO SCH (09:17)
[2019-01-20] MEDS: Pantoprazole TAB * 40 MG TAB PO SCH (09:17)
[2019-01-20] MEDS: Aspirin 81 mg CHEW TAB* 81 MG TAB.CHEW PO SCH (09:17)
[2019-01-20] MEDS: Atorvastatin* 40 MG TAB PO SCH (09:17)
[2019-01-20] MEDS: Metoprolol Tartrate IV* 1 MG/ML 5 ML VIAL IV PRN (09:28)
[2019-01-20] MEDS: Morphine INJ* 4 MG/ML 1 ML SYRINGE (NEW SYRINGE VERSION) IV ONE ×2 (14:23→14:43)
[2019-01-20] MEDS ORDERED: Furosemide IV* 10 MG/ML 10 ML VIAL (100 MG) IV ONE (14:30)
--- NOTE | 2019-01-20 16:55 | PN ---
Date of Service: 01/20/19 Critical Care Services: Patient requires BIPAP almost continuously - is now DRI/DNR, per his request. CXR shows signs of CHF, so we are attempting diuresis. Vital Signs: Temp Pulse Resp BP SpO2 FiO2 100.2 F 87 15 115/66 96 100 Physical Exam: Gen: Alert and oriented HEENT:OP clear Lungs:Coarse rhonchi Cardiac: Reg rhythm Abdomen:Not distended Extremities:No cyanosis. 1+ edema Fluid Balance (Past 24 Hours): I= O= Net Intake & Output 01/19/19 01/20/19 06:59 06:59 Intake Total 1426 437 Output Total 1745 1440 Balance -319 -1003 Weight 247 lb 5.738 oz 237 lb 10.533 oz Intake: IV Fluids 22 BACTRIM NS (0.9%) 22 IVPB 154 0 BACTRIM 0 Cefepine 100 NS (0.9%) 54 Oral 1250 437 Output: Osorio 1745 1440 Residual Osorio 16 Fr Other: Estimated Void Large # Bowel Movements 1 1 Estimated Stool Amount Medium Small # Voids 1 Labs: Laboratory Results - last 24 hr 01/20/19 01/20/19 05:10 05:10 WBC 14.6 H RBC 2.92 L Hgb 9.2 L Hct 28 L MCV 96 H MCH 32 H MCHC 33 RDW 14 Plt Count 232 MPV 6.4 L Neut % (Auto) 76.3 Lymph % (Auto) 11.8 [place] % (Auto) 10.1 Eos % (Auto) 1.6 Baso % (Auto) 0.2 Absolute Neuts (auto) 11.4 H Absolute Lymphs (auto) 1.8 Absolute Monos (auto) 1.5 H Absolute Eos (auto) 0.2 Absolute Basos (auto) 0.0 Absolute Nucleated RBC 0.0 Nucleated RBC % 0.0 Sodium 138 Potassium 3.9 Chloride 94 L Carbon Dioxide 39 H Anion Gap 5 BUN 36 H Creatinine 1.36 H Est GFR ( Amer) 61.6 Est GFR (Non-Af Amer) 50.9 BUN/Creatinine Ratio 26.5 H Glucose 77 Calcium 9.0 Magnesium 1.9 Studies: CXR: as described Nutrition: Oral feeding: Intake poor Impression: End-stage COPED, complicated by CHF (probably mostly right-sided). Plan: Attempt agressive diuresis. Otherwise, comfort measures are approproate. Critical Care Time: 40 minutes
[2019-01-20] MEDS: Gabapentin CAP(*) 100 MG PO SCH (19:17)
[2019-01-21 05:59] LABS: BUN/Creatinine Ratio 27.3 (8-20); Calcium 8.7 mg/dL (8.6-10.3); EGFR African American 66.1 (>60); EGFR Non-African American 54.6 (>60); Magnesium 1.6 mg/dL (1.9-2.7); Potassium 3.7 mmol/L (3.5-5.0)
[2019-01-21] MEDS: Mometasone/Formoter 200/5 MDI INH SCH (09:19)
[2019-01-21] MEDS: SPIRIVA Respimat* (tiotropium) 2.5 mcg/inh Inhaler INH SCH (09:19)
[2019-01-21] MEDS ORDERED: Morphine INJ* 2 MG/ML 1 ML SYRINGE (TWO MG - NEW SYRINGE VERSION) ONE (09:20)
[2019-01-21] MEDS: Morphine INJ* 2 MG/ML 1 ML SYRINGE (TWO MG - NEW SYRINGE VERSION) IV PRN ×3 (09:25→14:46)
[2019-01-21] MEDS: Metoprolol Tartrate IV* 1 MG/ML 5 ML VIAL IV PRN (09:39)
[2019-01-21] MEDS: Pantoprazole TAB * 40 MG TAB PO SCH (09:41)
[2019-01-21] MEDS: Apixaban* 5 MG TAB PO SCH (09:41)
[2019-01-21] MEDS: BuPROPion XL* 150 MG TAB.XL PO SCH (09:41)
[2019-01-21] MEDS: Docusate CAP* 100 MG PO SCH (09:41)
[2019-01-21] MEDS: Dronedarone TAB* 400 MG PO SCH (09:41)
[2019-01-21] MEDS: Metoprolol Succinate XL TAB* 25 MG PO SCH (09:41)
[2019-01-21] MEDS: Finasteride TAB* 5 MG PO SCH (09:41)
[2019-01-21] MEDS: Atorvastatin* 40 MG TAB PO SCH (09:41)
[2019-01-21] MEDS: Sucralfate TAB* 1 GM PO SCH ×2 (09:41→13:24)
[2019-01-21] MEDS ORDERED: Furosemide IV* 100 MG in NS 0.9% 100 ML* 90 ML IV SCH ×4 (10:00)
[2019-01-21] MEDS ORDERED: Furosemide IV* 10 MG/ML VIAL (40 MG) IV ONE (10:00)
[2019-01-21 14:20] VITALS: BP 113/56
[2019-01-21] MEDS ORDERED: Lorazepam PYXIS KEY PRN (15:48)
[2019-01-21] MEDS ORDERED: LORazepam INJ* 2 MG/ML 1 ML VIAL IV PUSH PRN (15:48)
[2019-01-21] MEDS ORDERED: Morphine 10 MG/ML VIAL (1 ml) IV ONE (16:00)
[2019-01-21] MEDS ORDERED: Morphine PCA ADULT* 5 MG/ML 30 ML PCA SCH (16:00)
[2019-01-21] MEDS ORDERED: LORazepam INJ* 2 MG/ML 1 ML VIAL IV PUSH ONE (16:00)
[2019-01-21] MEDS ORDERED: Morphine 10 MG/ML VIAL (1 ml) ONE (16:42)
--- NOTE | 2019-01-21 18:32 | DS ---
SUMMARY: DATE OF ADMISSION: 01/08/19 DATE OF : 01/21/19 HOSPITAL COURSE: 78-year-old male with a history of Afib, CHF, and end-stage COPD with multiple admissions to this hospital for acute exacerbations of COPD, which have required mechanical ventilation. The patient was out of the hospital for 6 days and was readmitted with hypercapnic respiratory failure (an exacerbation of COPD). The patient did not require intubation, and was managed with bronchodilators, steroids, diuretics, and BiPAP therapy. During the hospitalization, there was no significant improvement in the patient's clinical status and he required BiPAP therapy almost continuously. There was no evidence for a treatable infection. On 01/20/19, the patient requested DNR/DNI status, which was granted and repeated attempts to take the patient off the BiPAP resulted in severe O2 desaturation (SpO2 down to 70%) within minutes. The patient was SOB during BIPAP, and was given morphine to relieve the sense of dyspnea. At this point, the patient's (healthcare proxy) agreed to "comfort measures only" care, which was instituted on 01/21 - shortly after the BIPAP was discontinued, the patient became apneic and pulseless, and was pronounced at 5 PM on the same day (01/21/2019). The family was present at the bedside - autopsy was denied. FINAL DISCHARGE DIAGNOSES: 1. End-stage chronic obstructive pulmonary disease. 2. [id number]-[id number] respiratory failure with hypoxia and hypercapnia. 3. Congestive heart failure. 4. Atrial fibrillation. TIME SPENT: 100 minutes - included discussions with the family about comfort measures, management of the comfort measures, and monitoring vital signs until time of . [id number]/CPS #: [id number] MTDD
== END 2019-01-21 16:58 | disposition expired | DRG 193 ==
LOC: ED 14:49 → ICU 18:16 → MEDTELE 01-13 11:10 → ICU 01-17 10:37
PROVIDERS: ADMIT Internal Medicine; ATTEND Internal Medicine Critical Care Medicine
PROC: 5A09557 Assistance with Respiratory Ventilation, Greater than 96 Consecutive Hours, Continuous Positive Airway Pressure (ICD-10-PCS; principal; 2019-01-08)
DX: J18.9 Pneumonia, unspecified organism (principal); I50.23 Acute on chronic systolic (congestive) heart failure; J96.22 Acute and chronic respiratory failure with hypercapnia; J96.21 Acute and chronic respiratory failure with hypoxia; J44.1 Chronic obstructive pulmonary disease with (acute) exacerbation; J44.0 Chronic obstructive pulmonary disease with (acute) lower respiratory infection; G93.40 Encephalopathy, unspecified; I48.20 Chronic atrial fibrillation, unspecified; N17.9 Acute kidney failure, unspecified; I50.22 Chronic systolic (congestive) heart failure; I25.10 Atherosclerotic heart disease of native coronary artery without angina pectoris; I48.0 Paroxysmal atrial fibrillation; N31.9 Neuromuscular dysfunction of bladder, unspecified; M19.90 Unspecified osteoarthritis, unspecified site; G89.29 Other chronic pain; M54.5 Low back pain; Z96.643 Presence of artificial hip joint, bilateral; M25.562 Pain in left knee; F32.9 Major depressive disorder, single episode, unspecified; K21.9 Gastro-esophageal reflux disease without esophagitis; I73.9 Peripheral vascular disease, unspecified; G47.33 Obstructive sleep apnea (adult) (pediatric); N40.0 Benign prostatic hyperplasia without lower urinary tract symptoms; G43.909 Migraine, unspecified, not intractable, without status migrainosus; E66.9 Obesity, unspecified; D64.9 Anemia, unspecified; K59.03 Drug induced constipation; T40.605A Adverse effect of unspecified narcotics, initial encounter; Y92.239 Unspecified place in hospital as the place of occurrence of the external cause; N13.9 Obstructive and reflux uropathy, unspecified; E78.5 Hyperlipidemia, unspecified; I95.9 Hypotension, unspecified; M48.00 Spinal stenosis, site unspecified; Z86.73 Personal history of transient ischemic attack (TIA), and cerebral infarction without residual deficits; Z91.041 Radiographic dye allergy status; Z83.3 Family history of diabetes mellitus; Z99.81 Dependence on supplemental oxygen; Z90.49 Acquired absence of other specified parts of digestive tract; Z68.32 Body mass index [BMI] 32.0-32.9, adult; Z91.19 Patient's noncompliance with other medical treatment and regimen
CPT/HCPCS: 36415; 36600; 70450; 71045; 80048; 80053; 80061; 80202; 81003; 81015; 82140; 82272; 82310; 82550; 82553; 82803; 83605; 83735; 83880; 84100; 84484; 85025; 85027; 85610; 85730; 86140; 87040; 87070; 87077; 87086; 87186; 87205; 87899; 90686; 93005; 93880; 94640; 94660; 96365; 96375; 99285; A9270-GY; G8978-GP-CN; G8979-GP-CM; J0692; J1720; J1940; J2060; J2270; J2405; J2543; J3370; J3475; J3490; J3535; J7512